=== PATIENT | female | born 1975 | race Caucasian/White ===

== ENCOUNTER 2017-08-17 16:30 | Outpatient (RCR) | payer MEDICAID, SELFPAY | END 2017-09-06 23:59 | LOC: NS 16:30 | PROVIDERS: Family Provider Preventive Medicine Occupational Medicine; PCP Preventive Medicine Occupational Medicine; Visit Provider Preventive Medicine Occupational Medicine | DX: E66.01 Morbid (severe) obesity due to excess calories (principal); Z68.45 Body mass index [BMI] 70 or greater, adult; Z71.3 Dietary counseling and surveillance | CPT/HCPCS: 97803 ==

== ENCOUNTER 2017-09-08 11:46 | Outpatient (RCR) | payer MEDICAID, SELFPAY ==
[2017-04-22 18:09] VITALS: BP 136/72; BMI 78.3
== END 2017-10-04 23:59 ==
LOC: NS 11:46
PROVIDERS: Family Provider Preventive Medicine Occupational Medicine; PCP Preventive Medicine Occupational Medicine; Visit Provider Preventive Medicine Occupational Medicine
DX: E66.01 Morbid (severe) obesity due to excess calories (principal); Z68.45 Body mass index [BMI] 70 or greater, adult; Z71.3 Dietary counseling and surveillance
CPT/HCPCS: 97803

== ENCOUNTER 2017-11-03 08:30 | Outpatient (RCR) | payer MEDICAID, SELFPAY | END 2017-11-03 08:31 | LOC: NS 08:30 | PROVIDERS: Family Provider Preventive Medicine Occupational Medicine; PCP Preventive Medicine Occupational Medicine; Visit Provider Preventive Medicine Occupational Medicine | DX: E66.01 Morbid (severe) obesity due to excess calories (principal); Z68.45 Body mass index [BMI] 70 or greater, adult; Z71.3 Dietary counseling and surveillance | CPT/HCPCS: 97803 ==

== ENCOUNTER 2018-07-16 15:51 | Outpatient (RCR) | payer MEDICAID, SELFPAY | END 2018-07-16 23:59 | disposition home or self-care (01) | LOC: NS 15:51 | PROVIDERS: Family Provider Preventive Medicine Occupational Medicine; PCP Preventive Medicine Occupational Medicine; Visit Provider Preventive Medicine Occupational Medicine | DX: E66.01 Morbid (severe) obesity due to excess calories (principal); Z68.45 Body mass index [BMI] 70 or greater, adult; Z71.3 Dietary counseling and surveillance | CPT/HCPCS: 97802 ==

== ENCOUNTER 2018-08-13 01:01 | Emergency (ER) | payer MEDICAID, SELFPAY ==
[2018-08-13 01:02] VITALS: BP 221/101; PULSE 111; RESP 26; TEMP 36.6; O2SAT 95; BMI 75.4
[2018-08-13 01:09] VITALS: BP 219/95; PULSE 108; RESP 20; O2SAT 98
[2018-08-13 01:42] VITALS: PULSE 101; RESP 22
[2018-08-13] MEDS: Ipratropium/Albuterol Sulfate 3 ML AMPUL.NEB INHALATION (01:42)
--- NOTE | 2018-08-13 02:00 | RAD_ITS ---
STUDY: X-RAY CHEST REASON FOR EXAM: Female, 43 years old. Cough and congestion for one week TECHNIQUE: Frontal and lateral views of the chest. COMPARISON: None. FINDINGS: Mild right basilar alveolar disease. There is no demonstrated pleural abnormality. Normal size heart. Normal mediastinum and gómez. Normal visualized pulmonary arteries. Normal visualized aortic arch and descending thoracic aorta. Normal visualized thoracic spine. Normal visualized ribs, clavicles, and shoulders. There is no demonstrated abnormality of the visualized soft tissue structures of the upper abdomen. RAD/Chest PA and Lateral IMPRESSION: Mild right basilar alveolar disease. Electronically Signed: Familia Claire MD at 2:51 EST Tel , Service support ,
--- NOTE | 2018-08-13 02:57 | ED.DCSUM_ITS ---
- ER Visit Summary Date of Service: 08/13/18 Chief Complaint: I woke up coughing History of Present Illness: The patient is a 43 F who presents with a cough. She complains of congestion rhinorrhea sore throat and productive cough for about 1 week. She woke up with a coughing fit tonight and was short of breath during the coughing fit but her shortness of breath has since improved and her cough is decreased. She does have a history of asthma. She states that she is having problems with her roommate so she has been staying with her and close room and her is a smoker so she has had increased secondhand smoke exposure which may be contributing. No fevers vomiting diarrhea. Physical Examination: Blood pressure 219/95 heart rate 108 respiratory rate 20 pulse ox 98% afebrile Moist mucous membranes No distress resting comfortably Heart regular rhythm tachycardia Lungs are clear without rales rhonchi wheezes Abdomen soft Alert Test Results: Two-view chest x-ray shows right basilar alveolar disease as read by radiology. Emergency Department Course and Treatment: Given alveolar disease in the right lower lung with productive cough I do believe this represents community-acquired pneumonia. Patient will be treated with azithromycin. She understands to return for new or worsening symptoms. She was discharged. In regards to her hypertension she notes that she has been out of her blood pressure medication for a week. She was advised to contact her primary care physician in regards to this. Treatment Plan: [] Disposition: Discharged Impression: Community acquired pneumonia This note was generated with backstitch dictation software. It may contain incorrect words, spelling, and punctuation that were not noted in review of the chart prior to signing ED Disposition - Plan for ED Patient: Chief Complaint: Cold Sx Referrals: Rian Blanco DO [Primary Care Provider] -
--- NOTE | 2018-08-13 02:57 | ED.DEP ---
ED Disposition - Plan for ED Patient: Chief Complaint: Cold Sx Instructions: ED Pneumonia Adult Prescriptions: Azithromycin [Zithromax Z-Alex] 250 mg PO UD #1 box Referrals: Rian Blanco DO [Primary Care Provider] -
[2018-08-13 03:05] VITALS: RESP 16; O2SAT 99
== END 2018-08-13 03:07 | disposition home or self-care (01) ==
LOC: ED 01:35
PROVIDERS: Emergency Provider Emergency Medicine; Family Provider Preventive Medicine Occupational Medicine; PCP Preventive Medicine Occupational Medicine
DX: J18.9 Pneumonia, unspecified organism (principal); E11.9 Type 2 diabetes mellitus without complications; I10 Essential (primary) hypertension; E28.2 Polycystic ovarian syndrome; J45.909 Unspecified asthma, uncomplicated; Z79.84 Long term (current) use of oral hypoglycemic drugs; Z79.899 Other long term (current) drug therapy; Z77.22 Contact with and (suspected) exposure to environmental tobacco smoke (acute) (chronic)
CPT/HCPCS: 71046; 94640; 99282

== ENCOUNTER 2019-02-26 14:00 | Outpatient (RCR) | payer MEDICAID, SELFPAY ==
--- NOTE | 2018-12-11 15:45 | HP.PTEVAL_ITS ---
Patient's Visit Information JUAN TAYLOR is a 43 year old F referred to Physical Therapy by Rian Blanco DO with a diagnosis of Bilateral Knee OA. Date of Evaluation: 12/11/18 Physical Therapist: Rylee Rutledge DPT - Visit Plan Frequency: 2x /Week Duration: 4 Weeks Plan: Aquatic Therapy for endurnace, strength and functional mobility - Subjective Findings: Patient reports that she has had bilateral knee pain for years- both are about the same. Worst: 7/10 Agg: standing on them, walking Best: 0/10 Eases: getting off of them. Has had x-rays awhile ago that showed arthritis. Pain is located on the anterior portion of the knee- no radiating pain. Describes pain as dull and achy- due to no cartilage. Sleep: not disturbed- back/side sleeper Left. Currently patient is walking as little as possible- likes to use a w/c, rollerator and cane. Prefers to use a rollerator to decrease the pressure- wants to sit on the seat and move around. Is able to get up/down 4 stairs as long as their is a rail. Pain comes if she is on her feet for more than 2 minutes- goes away immediatly when she sits down. Plans to do aquatics. PMHx: HTN, low thyroid, PCOS, asthma. Meds: Metformin, Dyflonec, vit D3, Vit B12, Metroprolol. - Objective Posture: FH,RS- patient is significantly obese and has a large pannus. Gait: ambulate 15 feet in clinic- turned turned out due to pannus with flat foot progression. HR/TR: able with UE A on the wall. SLS: unable to remove hands from wall but does perform a full weight shift. Palpation: right: not tender, Left: tender along anterior patella. ROM: WFL with soft tissue limitations. Strength: Ankle: 5/5, knee: 5/5, Hip: 4+/5 Core: poor. Endurance: poor- SOB with ambulation of 15 feet in clinic. Observation: peddled herself backwards with a w/c from waiting room to exam room- SOB after 100 feet. Flex: HS: moderate, Gastroc: moderate - Goals Goal 1:: Patient will be I with HEP and progression Goal Time Frame: 4-6 Weeks Goal 2:: Patient will ambulate >50 feet with no SOB and pain Goal Time Frame: 4-6 Weeks Goal 3:: Patient will demo 5/5 strength in hips Goal Time Frame: 4-6 Weeks Goal 4:: Patient will maintain proper posture t/o tx session to demo increased core s/s Goal Time Frame: 4-6 Weeks - Rehabilitation Potential Physical Therapy Diagnosis: Patient presents with hypomobility- she has decrease ROM, strength and muscular endurance leading to poor posture and increased pain with ADL's. Rehabilitation Potential: Fair - Anticipated Interventions Therapeutic Exercise to Include: Strength training, Endurance training, Balance training, Coordination, Agility training, Body mechanics, Postural training, Fle xibilty training, Gait and locomotor training, In an aquatic setting, Dynamic Lumbar Stabilization For the Purpose of:: To improve muscle performance and motor function Thank you for the opportunity to evaluate your patient. For Medicare and Medicare HMO plans, please review the plan of care and approve it. It will need to be FAXED BACK to us at [phone] for Medicare purposes. For Medicare only, by signing this I certify the plan of care. Please let me know if there are questions or concerns regarding this plan of care. Physician Signature: Date:
--- NOTE | 2019-01-21 16:58 | HP.PTREVAL ---
Rian Blanco, , It has been my pleasure to treat JUAN TAYLOR over the last 9 visits for Bilateral Knee OA. Please see the progress note below for an update on the physical therapy plan of care! Subjective: Patient feels that she is improving but she is still unable to do some things with her knees- she is unable to kneel on them and go up/down stairs. Objective/Function: Posture: FH,RS- patient is significantly obese and has a large pannus. Gait: ambulate 300 feet in clinic. HR/TR: able with UE A on the wall. SLS: unable to remove hands from wall but does perform a full weight shift. Palpation: right: not tender, Left: tender along anterior patella. ROM: WFL with soft tissue limitations. Strength: Ankle: 5/5, knee: 5/5, Hip: 4+/5 Core: fair. Endurance: fauir- SOB with ambulation of 300 feet in clinic. Flex: HS: moderate, Gastroc: moderate Plan Plan: Continue with aquatic PT to progress towards goals Goals Goal 1:: Patient will be I with HEP and progression Goal Time Frame: 4-6 Weeks Goal Progress: Progressing Goal 2:: Patient will ambulate >50 feet with no SOB and pain Goal Time Frame: 4-6 Weeks Goal Progress: Progressing Goal 3:: Patient will demo 5/5 strength in hips Goal Time Frame: 4-6 Weeks Goal Progress: Progressing Goal 4:: Patient will maintain proper posture t/o tx session to demo increased core s/s Goal Time Frame: 4-6 Weeks Goal Progress: Progressing Anticipated Interventions Therapeutic Exercise to Include: Strength training, Endurance training, Balance training, Coordination, Agility training, Body mechanics, Postural training, Flexibilty training, Gait and locomotor training, In an aquatic setting, Dynamic Lumbar Stabilization For the Purpose of:: To improve muscle performance and motor function Please do not hesitate to contact me at [phone] by phone or if you have questions or concerns regarding this new plan of care! Sincerely, Rylee Rutledge DPT
--- NOTE | 2019-03-22 09:59 | HP.PT.NRP ---
HP - Discharge Summary (1) - Patient Information JUAN TAYLOR was seen in my office for initial evaluation on 12/11/18. The following Plan of Care was established for this patient: Initial Frequency: 2x /Week Initial Duration: 4 Weeks - Anticipated Interventions Therapeutic Exercise to Include: Strength training, Endurance training, Balance training, Coordination, Agility training, Body mechanics, Postural training, Flexibilty training, Gait and locomotor training, In an aquatic setting, Dynamic Lumbar Stabilization For the Purpose of:: To improve muscle performance and motor function This patient was last seen in our office . Pertinent comments regarding their Physical therapy will appear below: At this point I will be discontinuing this patient from physical therapy. I would be happy to see this patient again in the future if found appropriate by the physician. Thank you! ELMO GrimaldoT
== END 2019-02-26 19:00 | disposition home or self-care (01) ==
LOC: PT 14:00
PROVIDERS: Family Provider Preventive Medicine Occupational Medicine; PCP Preventive Medicine Occupational Medicine; Referring Provider Preventive Medicine Occupational Medicine; Visit Provider Preventive Medicine Occupational Medicine
DX: M17.0 Bilateral primary osteoarthritis of knee (principal)
CPT/HCPCS: 97113; 97161; 97164

== ENCOUNTER 2019-12-14 00:48 | Emergency (ER) | payer MEDICAID, SELFPAY ==
[2019-12-14 00:49] VITALS: BP 220/95; PULSE 97; RESP 20; TEMP 36.4; O2SAT 98; BMI 83.6
--- NOTE | 2019-12-14 01:20 | ED.VIS.BACK ---
History of Present Illness Chief Complaint: Back Informant: Patient Onset: Days - 17 Context: Sudden Onset Timing: Continuous, Waxes and wanes Quality: Aching, Burning Location: Lumbar - mid to left, Buttock - left Current Severity: Moderate Maximum Severity: Severe Worsened by: improves with: Movement - certain ones, such as trying to stand from seated position Relieved by: Remaining Still Associated Symptoms: - - No numbness or tingling. No radiation to either lower extremity. No bowel or bladder dysfunction. No abdominal pain or dysuria. Narrative: Patient states she rolled over and had a pop in her back 17 days ago. She has been dealing with pain, called her doctor and was prescribed a prednisone taper and tramadol, pain never went away, but seemed to get worse yesterday when she felt a pop in her back in the middle of the night. Not sure if she did something to provoke that. Denies any neurologic symptoms but the pain radiates over to the left hip. Denies any falls or obvious major injuries. - Past Medical History (1) Asthma Status: Chronic (2) KATEY (obstructive sleep apnea) Status: Chronic (3) Obesity Status: Chronic Past Medical History - Allergies and Home Meds Allergies/Adverse Reactions: Allergies No Known Allergies Allergy (Verified 12/14/19 00:48) Primary Care Physician: Rian Blanco DO [Primary Care Provider] - 3-5 Days Surgical History: - - No history of back surgery Lives: Spouse/ Significant Other - Female Smoking Status: Former smoker Review of Systems General: Denies: Chills, Fever, Sweats Eyes: Denies: Visual changes - bilaterally, Diplopia ENT: Denies: Rhinorrhea, Sore throat Cardiovascular: Denies: Chest pain, Palpitations Respiratory: Denies: Dyspnea, Cough, Dyspnea on exertion Gastrointestinal: Denies: Abdominal pain, Nausea, Vomiting, Diarrhea, Melena, Hematochezia Genitourinary: Denies: Dysuria, Hematuria, Frequency Musculoskeletal: Reports: Back pain. Denies: Extremity Pain Skin: Denies: Rash, Wounds Neurological: Denies: Headache, Weakness, Numbness Physical Exam Vital Signs/Narrative: Vital Signs Temp Pulse Resp BP Pulse Ox 12/14/19 00:49 97.6 F L 97 20 H 220/95 H 98 Inital Vital Signs reviewed: Yes General: Well nourished, Well developed, Obese - Morbidly, - - Well-appearing in no distress, conversive in full sentences Head: Normocephalic, Atraumatic Abdomen: Soft, Nontender, Nondistended. Negative for: Pulsatile mass Back: Normal Inspection, Spinal tenderness - Mild, lumbosacral region near tailbone, Negative SLR - Right, Negative SLR - Left, - - Able to sit up on her own from a reclined position in bed without pain. Patient describes pain in the left sciatic notch region, nontender at this time.. Negative for: Paraspinal Tenderness - Obesity limits the exam significantly, CVA tenderness Extremeties: Nontender, No edema, - - No tenderness at the greater tuberosity of the hip bilaterally or the ASIS of the pelvis. Skin: Normal color, No rash Neuro: Alert, Oriented, Normal Strength, Normal Sensation, Normal DTR, Normal Gait, Normal Reflexes Psychological: Normal affect, Normal Mood Diagnostic/Tx/Re-eval STUDY: X-RAY - LUMBAR SPINE REASON FOR EXAM: Female, 44 years old. LOWER BACK PAIN X 17 DAYS, NO RADIATION DOWN LEGS TECHNIQUE: 3 view(s) of the lumbar spine were obtained. COMPARISON: None FINDINGS: Normal lumbar lordosis. There is no substantial scoliosis. There is a normal alignment of the vertebrae. There is multilevel endplate spondylosis of the lumbar vertebrae. There is multi-level degenerative disc disease with multi-level disc space narrowing. There is no demonstrated fracture. There is minimal anterolisthesis of L4 on L5 (3.3 mm). The soft tissue structures are unremarkable. RAD/Lumbar Spine 2 or 3 Views IMPRESSION: Multilevel spondylosis/degenerative disease. Minimal atelectasis of L4 on L5 otherwise no acute fracture. Electronically Signed: Ashley Montaño MD at 2:21 EDT - Medical Decision Making X-rays show nothing acute. Degenerative changes are noted. She was given a dose of morphine which helped for pain. At this time I do not see any reason to get further emergent studies. She should follow-up with her doctor. She is testing negative for radicular symptoms at this time, nor did she present with acute radicular symptoms. I do not think continuing more steroids is needed. No symptoms of cauda equina syndrome. We discussed reasons to return. I do not think she needs new prescriptions, but at discharge the patient states that she is out of the tramadol her PCP prescribed her, so I will give her a short refill of that. I advised her to continue the meloxicam that she also has at home. Initially her blood pressure was 220 systolic. On reevaluation prior to discharge her blood pressure is 165/81. I suspect it was elevated due to pain. ED Disposition - Plan for ED Patient: Disposition: Home or Assisted Living Diagnosis: Musculoskeletal back pain Instructions: ED Back Pain Acute or Chronic Prescriptions: traMADol [Ultram] 50 mg PO Q4H PRN PRN #15 tab PRN Reason: Pain Prescription Printed Referrals: Rian Blanco DO [Primary Care Provider] - 3-5 Days
[2019-12-14] MEDS: Morphine 4 MG/ML Syringe IM (02:01)
[2019-12-14 02:49] VITALS: BP 165/81; PULSE 90; RESP 16; O2SAT 95
[2019-12-14 02:53] VITALS: RESP 20
== END 2019-12-14 04:10 | disposition home or self-care (01) ==
PROVIDERS: Emergency Provider Emergency Medicine; PCP Preventive Medicine Occupational Medicine
DX: M54.9 Dorsalgia, unspecified (principal); J45.909 Unspecified asthma, uncomplicated; G47.33 Obstructive sleep apnea (adult) (pediatric); E66.01 Morbid (severe) obesity due to excess calories; Z79.899 Other long term (current) drug therapy; Z87.891 Personal history of nicotine dependence
CPT/HCPCS: 72100; 96372; 99284

== ENCOUNTER → 2020-01-08 | Outpatient (CLI) | payer MEDICAID, SELFPAY ==
[2019-12-14 00:49] VITALS: BMI 83.6
== END | disposition home or self-care (01) ==
LOC: LABSPEC 15:32
PROVIDERS: PCP Preventive Medicine Occupational Medicine; Visit Provider Dermatology
DX: L08.9 Local infection of the skin and subcutaneous tissue, unspecified (principal); D48.5 Neoplasm of uncertain behavior of skin
CPT/HCPCS: 87070; 87075; 87077; 87186; 87205

== ENCOUNTER 2020-01-19 15:23 | Emergency (ER) | payer MEDICAID, SELFPAY ==
[2020-01-19 15:24] VITALS: BP 176/83; PULSE 81; RESP 20; TEMP 36.8; BMI 83.7
[2020-01-19] MEDS: Doxycycline 100 MG CAPSULE PO (16:02)
[2020-01-19 16:19] LABS: Absolute Neutrophil Count 7.9 X10^3/uL (2.0-7.7); Basophil# 0.06 X10^3/uL; Basophil% 0.5 % (0-1); Eosinophil# 0.29 X10^3/uL; Eosinophils% 2.6 % (0-5); Hematocrit 42.1 % (37-47); Hemoglobin 12.5 g/dL (12.0-15.0); Lymphocyte % 19.1 % (19-41); Mean Corp Hgb Conc 29.7 g/dL (32-36); Mean Corpuscular Hgb 23.5 pg (27.0-32.0); Mean Platelet Vol. 9.9 fl (6.2-12.0); Monocyte# 0.61 X10^3/uL; Monocyte% 5.6 % (0-10); NRBC Flagged by Analyzer 0 % (0-5); Neutrophil # 7.87 X10^3/uL (2.7-7.7); Neutrophil % 71.8 % (47-70); Platelet Count 346 K/mm3 (150-450); RBC Distribution Width CV 17.5 % (11.6-14.6); RBC Distribution Width SD 49.3 fl (35.1-43.9); Red Blood Count 5.33 M/mm3 (4.2-5.4)
--- NOTE | 2020-01-19 16:25 | ED.DCSUM_ITS ---
- ER Visit Summary Date of Service: 01/19/20 Chief Complaint: Bilateral leg swelling History of Present Illness: The patient is a [address] Sweeney. She reports that she has swelling in both of her legs that began 40 days ago. States that she has had low back pain for the past 50 days that comes on when she is trying to get out of bed. Because of this she has been sleeping in a wheelchair for the past 40 days. States that she has had 5 days of Lasix without resolution. She has had blood work and ultrasound 2 weeks ago that showed no DVT or CHF. Patient reports that her back pain is a stabbing pain that is 0 out of 10 currently and 10 out of 10 at worst. States that it really only comes on when she is trying to get out of bed. She denies any trauma. No fall, MVA, or change in activity. She has had x-rays for this. She denies any radiation. She denies any numbness, tingling, or weakness. States that she replaced her bed without relief. She is in the process of getting a hospital bed. She is scheduled to begin physical therapy tomorrow. Patient denies any chest pain or shortness of breath. She denies any fever or chills. She is concerned because she has weeping from her left leg that began 2 days ago. Physical Examination: Vitals: Stable. Afebrile. General: Well-nourished and well-developed. Head: Normocephalic atraumatic. Neck: Supple, no lymphadenopathy. No JVD. Nontender. Cardiovascular: Regular rate and rhythm. No murmurs. Respiratory: No respiratory distress. Clear to auscultation bilaterally. Abdominal: Soft, nontender, nondistended, normal bowel sounds. No guarding, rebound, or peritoneal signs. Back: Moderate tenderness palpation to the lumbar spine paraspinous muscular and lumbar region bilaterally. Negative straight leg raise bilaterally. Extremities: 3+ pitting edema of her lower extremities bilaterally. There is a 2 cm scab to the anterior left leg with slight surrounding erythema and there is serosanguineous weeping from this. There is no induration or fluctuance. No evidence of abscess. Skin: Normal color, no rash. Neurologic: Alert and oriented ?3. Cranial nerves II through XII are intact. Normal strength and sensation. Psych: Normal affect. Test Results: CBC shows segmented neutrophils of 72. Chem-7 shows a BUN of 21. LFTs show an AST of 11. BNP is 9.2. Emergency Department Course and Treatment: I had a prolonged discussion with the patient that I suspect that this swelling is from her sitting in a wheelchair. We talked about elevating her legs and using compression stockings. Treatment Plan: Patient will be discharged with doxycycline to prevent infection from the scabbed area. She also be placed on Bactroban ointment. She be given a prescription for 5 days of Lasix. She is also instructed to follow-up with the wound clinic as I suspect that she has some component of lymphedema and would benefit from teaching and compression dressing. Follow-up with her primary care physician in 1 week for another exam. Return to the emergency department for any worsening symptoms. Disposition: To home in improved and stable condition. Impression: 1. Bilateral lower extremity edema. This note was generated with [employer] dictation software. It may contain incorrect words, spelling, and punctuation that were not noted in review of the chart prior to signing ED Disposition - Plan for ED Patient: Instructions: ED Peripheral Edema, Bilateral Prescriptions: Mupirocin [Bactroban] 1 applic TOPICAL TID #1 tube Doxycycline 100 mg PO BID #14 capsule Furosemide [Lasix] 20 mg PO DAILY #5 tablet Referrals: Rian Blanco DO [Primary Care Provider] - 1 Week Clinic,Wound [None] - 2 Days for wound check
[2020-01-19 16:43] LABS: AST(SGOT) 11 U/L (15-37); Alanine Aminotransfer ALT/SGPT 19 U/L (13-56); Albumin, Serum 3.4 g/dL (3.2-5.0); Alkaline Phosphatase 98 U/L (45-117); Anion Gap 7 (5-15); BUN 21 mg/dL (7-18); BUN/Creat Ratio 24.9 RATIO (10-20); Bilirubin, Direct 0.11 mg/dL (0.00-0.30); Calcium,Total 9.3 mg/dL (8.5-10.1); Chloride 107 mmol/L (98-107); Creatinine, Serum 0.84 mg/dL (0.55-1.02); EST Glomerular Filtration Rate 78 mL/min (>60); Est Glom Filt Rate - Afr Amer 94 mL/min (>60); Globulin 3.9 g/dL (2.2-4.2); Glucose 86 mg/dL (74-106); Potassium 4.8 mmol/L (3.5-5.1); Protein, Total 7.3 g/dL (6.4-8.2); Sodium Level 140 mmol/L (136-145)
[2020-01-19 16:44] LABS: BNP,B-Type NATRIURETIC PEPTIDE 9.2 pg/mL (0-100)
== END 2020-01-19 17:50 | disposition home or self-care (01) ==
LOC: ED 15:59
PROVIDERS: Emergency Provider Emergency Medicine; PCP Preventive Medicine Occupational Medicine
DX: R60.0 Localized edema (principal); M54.5 Low back pain; I10 Essential (primary) hypertension; E03.9 Hypothyroidism, unspecified; J45.909 Unspecified asthma, uncomplicated; Z79.84 Long term (current) use of oral hypoglycemic drugs; Z79.899 Other long term (current) drug therapy
CPT/HCPCS: 80048; 80076; 83880; 85025; 99284

== ENCOUNTER 2020-01-29 07:50 | Outpatient (RCR) | payer MEDICAID, SELFPAY ==
[2020-01-29 08:05] VITALS: BP 187/98; PULSE 78; RESP 16; TEMP 36.6; BMI 80.5
--- NOTE | 2020-01-29 08:37 | HP.PCM_ITS ---
(1) Lower limb ulcer, calf Status: Acute Current Visit: Yes Qualifiers: Laterality: left Code(s): L97.209 - Non-pressure chronic ulcer of unspecified calf with unspecified severity (2) Obesity Status: Chronic Current Visit: No Qualifiers: Code(s): E66.9 - Obesity, unspecified (3) Nonhealing skin ulcer Status: Acute Current Visit: Yes Code(s): L98.499 - Non-pressure chronic ulcer of skin of other sites with unspecified severity History of Present Illness Date of Service: 01/29/20 Chief Complaint: Follow-up left lower leg ulcer History of Wound: D4-year[age] white female that is extremely obese has a hard time getting around because she has poor cartilage in the right knee and feels unsteady has been sleeping in her wheelchair has developed edema in the lower extremities and open sores. Denies to any trauma. Now starting to heal patient has finished her doxycycline that was after being seen in the emergency room has been using [id number] and bacitracin ointment. New skin is developing in base of wound base is very clean no cultures obtained. We will follow-up in 1 week Past Medical History Past Medical History: Chronic Problems (Last Reviewed 05/10/18 @ 11:13 by LEONIDES Alvarez) Asthma (Chronic) Obesity (Chronic) KATEY (obstructive sleep apnea) (Chronic) Past Medical History: Lower extremity ulcers. Edema lower legs Surgical History: - - No history of back surgery Allergies/Adverse Reactions: Allergies No Known Allergies Allergy (Verified 01/29/20 08:19) Home Medications: Ambulatory Orders Medication Instructions Recorded Metoprolol Tartrate [Lopressor 100 mg PO BID 09/23/14 (Beta Deyanira)] Cholecalciferol (VIT D3) [Vitamin 10,000 unit PO DAILY 07/08/16 D] Norethindrone [Aygestin] 5 mg PO DAILY 07/08/16 metformin 500 mg tablet 1,000 mg PO BID tab 11/02/17 albuterol sulfate 90 mcg/actuation 2 puff INHALATION Q6H PRN #1 device 11/07/17 aerosol inhaler diclofenac potassium 25 mg capsule 50 mg PO BID cap 11/07/17 montelukast 10 mg tablet 10 mg PO DAILY #30 tab 11/07/17 Cyanocobalamin (Vitamin B-12) 1,000 mcg PO DAILY 05/09/20 [Vitamin B-12] Cyclobenzaprine HCl 10 mg PO TID PRN 12/14/19 Levothyroxine [Synthroid] 50 mcg PO DAILY 12/14/19 Oxybutynin Chloride [Oxybutynin 10 mg PO DAILY 12/14/19 Chloride ER] Pravastatin Sodium 40 mg PO DAILY 12/14/19 Mupirocin [Bactroban] 1 applic TOPICAL TID #1 tube 01/19/20 Smoking Status: Never smoker Review of Systems Constitutional: Denies: Chills, Fever Eyes: Denies: Blurred vision, Drainage, Pain HEENT: Denies: Difficulty Hearing, Difficulty Swallowing, Sore Throat, Visual Changes Cardiovascular: Denies: Chest Pain, Palpitations, Syncope Respiratory: Denies: Cough, Shortness of Breath Gastrointestinal: Denies: Abdominal Pain, Nausea, Vomiting Genitourinary: Denies: Dysuria, Frequency Musculoskeletal: Denies: Joint Pain, Muscle pain Skin: Denies: Jaundice, Rash Neurological: Denies: Balance problems, Change in Speech, Difficulty swallowing, Focal weakness Psychiatric: Denies: Anxiety, Depression Endocrine: Denies: Change in Body Habitus Hematologic/ Lymphatic: Denies: Adenopathy - Physical Exam Vital Signs Temp Pulse Resp BP 97.9 F 78 16 187/98 H 01/29/20 08:05 01/29/20 08:05 01/29/20 08:05 01/29/20 08:05 General: Oriented x3, Cooperative, Well developed HEENT: Atraumatic, PERRLA Oral: Moist Mucosa Neck: Supple, No JVD Lungs: Clear to auscultation, Normal air movement Cardiovascular: Regular rate, Regular Rhythm Abdomen: Bowel Sounds Present, Soft, Non Tender, No Hepato-splenomegaly Extremities: No clubbing, No edema Skin: Ulcer/ Wound - Left lower leg ulcer Wound Measurements and Assessment WC - Nurse 1 - General Ulcer Measurement Start: 01/29/20 08:05 Freq: Status: Active Protocol: Activity Type Activity Date Activity User E-Sign Co-Sign Detail Recorded Client Recorded Date Recorded By Document 01/29/20 08:05 [facility] [id number] 01/29/20 08:17 [facility] 01/29/20 08:05 Wound Center Nurse 1 [Ulcer Assessment] #1- LEFT AVILEZ -Combined with other wound No -Current Size (cm) - Length 2.9 -Current Size (cm) - Width 2.2 -Current Size (cm) - Depth 0.1 -Total Square Cm 6.38 -Date of Last Picture (Recall this 01/29/20 field) -Photo Taken Yes -Epithelialization None Present -Tunneling No -Undermining/Tunneling No -Circular Undermining No -Exudate Amt Small -Exudate Type Serous -Wound Margin Distinct, Outline Attached -Granulation Amt Large (67-100%) -Granulation Quality Red -Slough/Fibrin Yes -Necrosis Amt Small (1-33%) -Necrotic Tissue Type Adherent Slough -Texture (Sera-wound Skin Appearance) Assessed -Moisture (Sera-wound Skin Appearance Assessed ) -Color (Sera-wound Skin Appearance) Assessed -Temperature (Sera-wound Skin No Abnormality Appearance) (Pt Warm) -Tenderness on Palpation (Sera-wound Yes Skin Appearance) -Ulcer Cleansing SOAPY WATER -Foul Odor after Cleansing No -Anesthetic Used 5% Lidocaine Gel [Edema Assessment] -Lower Limb Edema Present Yes -Right Calf (cm) 54 -Right Ankle (cm) 30 -Left Calf (cm) 56 -Left Ankle (cm) 29.8 WC - Nurse 2 - General Ulcer CM Notes Start: 01/29/20 08:05 Freq: Status: Active Protocol: Activity Type Activity Date Activity User E-Sign Co-Sign Detail Recorded Client Recorded Date Recorded By Document 01/29/20 08:28 [facility] [id number] 01/29/20 08:34 PL 01/29/20 08:28 Wound Center Nurse 2 [Procedure/Treatment] #1- LEFT AVILEZ -Time 08:30 -Correct Patient Yes -Correct Side, Site, Position Yes -Correct Procedure Yes -Procedure Performed Yes -Type of Procedure Debridement -Clinical Debridement Subcutaneous -Post Debridement Size (cm) - Length 3 -Post Debridement Size (cm) - Width 2 -Post Debridement Size (cm) - Depth 0.1 -Total Square Cm 6 -Wound/Ulcer Outcome Not Healed -Ulcer Cleansing Rinsed/ Irrigated with Saline -Foul Odor after Cleansing No -Treatment Response Procedure Tolerated Well [See Physician Procedure note for Specifics] Pain Scale: 0-10 Numeric [Pain] -Is Patient Pain Free? Yes Musculoskeletal: No Tenderness to Palpation of Joints or Extremities Lymphatic: No Cervical, Supraclavicular, or Inguinal Adenopathy Neurological: Cranial nerves II-XII grossly intact, Neuro grossly intact Psych/Mental Status: Normal Affect, Appropriate Debridement Note Post-Debridement Measurements/Treatment WC - Nurse 2 - General Ulcer CM Notes Start: 01/29/20 08:05 Freq: Status: Active Protocol: Activity Type Activity Date Activity User E-Sign Co-Sign Detail Recorded Client Recorded Date Recorded By Document 01/29/20 08:28 PL [id number] 01/29/20 08:34 PL 01/29/20 08:28 Wound Center Nurse 2 #1- LEFT AVILEZ -Time 08:30 -Correct Patient Yes -Correct Side, Site, Position Yes -Correct Procedure Yes -Procedure Performed Yes -Type of Procedure Debridement -Clinical Debridement Subcutaneous -Post Debridement Size (cm) - Length 3 -Post Debridement Size (cm) - Width 2 -Post Debridement Size (cm) - Depth 0.1 -Total Square Cm 6 -Wound/Ulcer Outcome Not Healed -Ulcer Cleansing Rinsed/ Irrigated with Saline -Foul Odor after Cleansing No -Treatment Response Procedure Tolerated Well Pain Scale: 0-10 Numeric Is Patient Pain Free? Yes Wound debrided: Left lower leg ulcer Type of Debridement: Excisional debridement Anesthesia Used: 5% Lidocaine Gel Depth: Down to and including healthy tissue Percentage of wound debrided: 100 Instrument Used: 5mm curette Tissue Removed: Fibrin Severity: Limited To Skin Breakdown Amount of bleeding with debridement: Mild Bleeding Controlled with: Compression and gauze Patient tolerated procedure well Assessment/Plan Active Problems (Last Reviewed 05/10/18 @ 11:13 by Evi Richard NP-C) Lower limb ulcer, calf (Acute) Nonhealing skin ulcer (Acute) Assessment: Lower leg ulcer. Nonhealing leg ulcer Plan: Leg with antibacterial soap. Apply Aquacel extra to wound base cover with Adaptic gauze and tape. Double layer Tubigrip to left leg. Follow-up in 1 week
== END 2020-02-04 23:59 ==
LOC: WC 07:50
PROVIDERS: PCP Preventive Medicine Occupational Medicine; Visit Provider Nurse Practitioner
DX: L97.221 Non-pressure chronic ulcer of left calf limited to breakdown of skin (principal); G47.33 Obstructive sleep apnea (adult) (pediatric); J45.909 Unspecified asthma, uncomplicated; E66.9 Obesity, unspecified; Z79.899 Other long term (current) drug therapy
CPT/HCPCS: 11042; 99212; G0463

== ENCOUNTER 2020-02-05 07:49 | Outpatient (RCR) | payer MEDICAID, SELFPAY ==
[2020-02-05 00:39] VITALS: BP 187/98; PULSE 78; RESP 16; TEMP 36.6
[2020-02-05 08:03] VITALS: BP 181/91; PULSE 70; RESP 18; TEMP 36.2; BMI 80.5
--- NOTE | 2020-02-05 08:30 | PN.PCM_ITS ---
(1) Lower limb ulcer, calf Status: Acute Current Visit: Yes Code(s): L97.209 - Non-pressure chronic ulcer of unspecified calf with unspecified severity (2) Nonhealing skin ulcer Status: Acute Current Visit: Yes Code(s): L98.499 - Non-pressure chronic ulcer of skin of other sites with unspecified severity (3) KATEY (obstructive sleep apnea) Status: Chronic Current Visit: Yes Code(s): G47.33 - Obstructive sleep apnea (adult) (pediatric) (4) Obesity Status: Chronic Current Visit: Yes Qualifiers: Code(s): E66.9 - Obesity, unspecified Type of Wound Date of Service: 02/05/20 Chief Complaint: Follow-up left lower leg ulcer History of Wound: 44-year-old white female that is extremely obese has a hard time getting around because she has poor cartilage in the right knee and feels unsteady has been sleeping in her wheelchair has developed edema in the lower extremities and open sores. Denies to any trauma. Now starting to heal patient has finished her doxycycline that was after being seen in the emergency room has been using [id number] and bacitracin ointment. New skin is developing in base of wound base is very clean no cultures obtained. We will follow-up in 1 week Progress of Wound: Today the wound is healed patient will be discharged from the wound center - Physical Exam Vital Signs Temp Pulse Resp BP 97.1 F L 70 18 181/91 H 02/05/20 08:03 02/05/20 08:03 02/05/20 08:03 02/05/20 08:03 General: Oriented x3, Cooperative, Well developed HEENT: Atraumatic, PERRLA Oral: Moist Mucosa Neck: Supple, No JVD Lungs: Clear to auscultation, Normal air movement Cardiovascular: Regular rate, Regular Rhythm Abdomen: Bowel Sounds Present, Soft, Non Tender, No Hepato-splenomegaly Extremities: No clubbing, No edema Skin: Ulcer/ Wound - Left gonzalez ulcer from edema Wound Measurements and Assessment WC - Nurse 1 - General Ulcer Measurement Start: 02/05/20 08:03 Freq: Status: Active Protocol: Activity Type Activity Date Activity User E-Sign Co-Sign Detail Recorded Client Recorded Date Recorded By Document 02/05/20 08:03 PL [id number] 02/05/20 08:10 PL 02/05/20 08:03 Wound Center Nurse 1 [Ulcer Assessment] #1- LEFT GONZALEZ -Combined with other wound No -Current Size (cm) - Length 0 -Current Size (cm) - Width 0 -Current Size (cm) - Depth 0 -Total Square Cm 0 -Epithelialization Large 67-100% -Tunneling No -Undermining/Tunneling No -Exudate Amt None Present -Granulation Amt Large (67-100%) -Texture (Sera-wound Skin Appearance) No Abnormality -Moisture (Sera-wound Skin Appearance No Abnormality ) -Color (Sera-wound Skin Appearance) No Abnormality -Temperature (Sera-wound Skin No Abnormality Appearance) (Pt Warm) -Ulcer Cleansing Rinsed/ Irrigated with Saline -Foul Odor after Cleansing No Musculoskeletal: No Tenderness to Palpation of Joints or Extremities Lymphatic: No Cervical, Supraclavicular, or Inguinal Adenopathy Neurological: Cranial nerves II-XII grossly intact, Neuro grossly intact Psych/Mental Status: Normal Affect, Appropriate Debridement Note No debridement was completed today Assessment/Plan Active Problems (Last Reviewed 05/10/18 @ 11:13 by Evi Richard, [facility]) Lower limb ulcer, calf (Acute) Nonhealing skin ulcer (Acute) Obesity (Chronic) KATEY (obstructive sleep apnea) (Chronic) Assessment: Lower leg ulcer resolved. Nonhealing leg ulcer resolved Plan: Discharge from the wound center and follow-up as needed
== END 2020-03-06 23:59 ==
LOC: WC 07:49
PROVIDERS: PCP Preventive Medicine Occupational Medicine; Visit Provider Nurse Practitioner
DX: Z09 Encounter for follow-up examination after completed treatment for conditions other than malignant neoplasm (principal); G47.33 Obstructive sleep apnea (adult) (pediatric); R60.0 Localized edema; E66.9 Obesity, unspecified
CPT/HCPCS: 99212; G0463

== ENCOUNTER → 2020-02-13 14:11 | Outpatient (CLI) | payer MEDICAID, SELFPAY ==
[2020-02-05 08:03] VITALS: BMI 80.5
--- NOTE | 2020-02-13 14:13 | US_ITS ---
STUDY: SUPERFICIAL ULTRASOUND - RIGHT LOWER QUADRANT REASON FOR EXAM: Female, 44 years old. SOFT TISSUE MASS RLQ 5''5'''' 485 # TECHNIQUE: A superficial ultrasound was performed with real-time and static fong-scale imaging. COMPARISON: None. FINDINGS: Dedicated images of the right lower quadrant demonstrate no discrete solid or cystic masses. There is subcutaneous edema. US/Ext Non Vasc Limited/Soft Tiss IMPRESSION: Subcutaneous edema. No discrete mass identified. Electronically Signed: Lyndsay Andrews MD at 15:04 EDT Tel , Service support ,
== END ==
PROVIDERS: PCP Preventive Medicine Occupational Medicine; Referring Provider Preventive Medicine Occupational Medicine; Visit Provider Preventive Medicine Occupational Medicine
DX: R22.2 Localized swelling, mass and lump, trunk (principal)
CPT/HCPCS: 76882

== ENCOUNTER 2020-04-03 10:00 | Outpatient (RCR) | payer MEDICAID, SELFPAY ==
--- NOTE | 2020-01-20 17:17 | HP.PTEVAL_ITS ---
Patient's Visit Information JUAN TAYLOR is a 44 year old F referred to Physical Therapy by Dr. Rian Blanco DO with a diagnosis of SACROCOCCYGEAL DISORDER,LOW BACK PAIN. Date of Evaluation: 01/20/20 Physical Therapist: Raymon Goff, PT, Cert MDT, OCS - Visit Plan Frequency: 2x /Week Duration: 4 Weeks Plan: PT INTERVENTIONS GRADED DLS,POSTURAL EX'S ,LE STRENGTHENING MODALTIES NEEDED - Subjective This 44 y/o female presents to physical therapy with lumboscaral pain. Patient developed inscidous onset of lumbar pain -L-S region. Patient symptoms increased when getting out of bed ,thus sleeps in w/c. Patient symptoms affected severe been in ER had x-rays DDD anteolithesis. Also, been in ER due to open wound in bilateral with drainage,so unable to do water ex's . Patient also has referral to wound center. Did morphine and telyonal. Tramadol didnt help. Location L- [place] . Decrribed as ache and sharp pain. Alos has isoloated left knee pain severe OA. Agraveting walk,stand,unable to lay supine to get OOB,bending,lifting. Alleviating not in bed ,resting in recliner. Patient uses recliner . Patient could benifit from hospital bed which DR ordered already. Could benifit lift chair recliner due to patient sleeps in w/c. Bowel/bladder -. Coughing/sneezing-. Patient pain affects ADL'S ability to walk,standing . Patient condition affets QOL. 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 VOCATION: disability - Pain Bilateral Back Pain Intensity (Out of 10): 10 Pain Intensity Range: 10 Comment: OOB - Objective POSTURE: mild foward posture. GAIT: antalgic short disatnces with cane. PALPTION: tender L-S. MMT: quads/hams 4-/5,hip flexion 3-/5,ankle 4/5 ,GTE 4/5. LUMBAR ROM: flexion mod loss ,extension mod loss,side glides mod. FLEXABILTY: hams min/mod tight - Special Tests L/S Slump test left side: Negative L/S Slump test right side: Negative L/S Left Straight Leg Raise: Negative L/S Right Straight Leg Raise: Negative - Goals Goal 1:: Independant with HEP Goal Time Frame: 4-6 Weeks Goal 2:: Patient improve ability to ambulate further distance with cane and less pain. Goal Time Frame: 4-6 Weeks Goal 3:: Patient decrease L-S pain by 40 % or > with functional activities Goal Time Frame: 4-6 Weeks Goal 4:: Patient improve lumbar ROM for function of recovery. Goal Time Frame: 4-6 Weeks Goal 5:: Patient improve back owestry score by 5 points or > to improve QOL. Goal Time Frame: 4-6 Weeks - Rehabilitation Potential Physical Therapy Diagnosis: This patient has multiple comorbities along with LBP with pain unable to get OOB ,affects ability to walk stand and distances causes deficits with ADL'S and stays in w/c most of the day as well sleeps in wc/ at home. Rehabilitation Potential: Good - Anticipated Interventions Patient/Client Instruction: Educate patient on: Condition, Plan of Care For the Purpose of:: To decrease pain, To increase ROM, To improve muscle performance and motor function, To improve ability to perform ADL's, To increase tolerance to activity/condition/position, To improve ability of physical actions for home/community/work/leisure, To increase flexibility/ROM, To improve safety with gait, To reduce risk of recurrence, To improve health and function, To impr ove ability to perform tasks related to life management Therapeutic Exercise to Include: Strength training, Body mechanics, Postural training, Flexibilty training, Dynamic Lumbar Stabilization For the Purpose of:: To decrease pain, To increase ROM, To improve muscle performance and motor function, To improve ability to perform ADL's, To increase tolerance to activity/condition/position, To improve ability of physical actions for home/community/work/leisure, To improve health of tissue, To decrease soft tissue restriction, To improve health and function, To improve ability to perform tasks related to life management TENS: Yes IF ES: Yes Cryotherapy (ice pack, ice massage): Yes Thermo therapy (hot pack): Yes Ultrasound (thermal/non thermal): Yes For the Purpose of:: To decrease pain, To decrease swelling/inflammation, To improve nutrient delivery to tissue, To increase oxygenation perfusion, To improve health of tissue, To decrease soft tissue restriction Thank you for the opportunity to evaluate your patient. For Medicare and Medicare HMO plans, please review the plan of care and approve it. It will need to be FAXED BACK to us at [phone] for Medicare purposes. For Medicare only, by signing this I certify the plan of care. Please let me know if there are questions or concerns regarding this plan of care. Physician Signature: Date:
--- NOTE | 2020-07-03 12:19 | HP.PT.NRP ---
JUAN TAYLOR was seen in my office for initial evaluation on 01/20/20. The following Plan of Care was established for this patient: Initial Frequency: 2x /Week Initial Duration: 4 Weeks Patient/Client Instruction: Educate patient on: Condition, Plan of Care For the Purpose of:: To decrease pain, To increase ROM, To improve muscle performance and motor function, To improve ability to perform ADL's, To increase tolerance to activity/condition/position, To improve ability of physical actions for home/community/work/leisure, To increase flexibility/ROM, To improve safety with gait, To reduce risk of recurrence, To improve health and function, To improve ability to perform tasks related to life management Therapeutic Exercise to Include: Strength training, Body mechanics, Postural training, Flexibilty training, Dynamic Lumbar Stabilization For the Purpose of:: To decrease pain, To increase ROM, To improve muscle performance and motor function, To improve ability to perform ADL's, To increase tolerance to activity/condition/position, To improve ability of physical actions for home/community/work/leisure, To improve health of tissue, To decrease soft tissue restriction, To improve health and function, To improve ability to perform tasks related to life management TENS: Yes IF ES: Yes Cryotherapy (ice pack, ice massage): Yes Thermo therapy (hot pack): Yes Ultrasound (thermal/non thermal): Yes For the Purpose of:: To decrease pain, To decrease swelling/inflammation, To improve nutrient delivery to tissue, To increase oxygenation perfusion, To improve health of tissue, To decrease soft tissue restriction This patient was last seen in our office . Pertinent comments regarding their Physical therapy will appear below: Patient seen for PT for back pain thus is d/c . At this point I will be discontinuing this patient from physical therapy. I would be happy to see this patient again in the future if found appropriate by the physician. Thank you! Raymon Goff, PT, Cert MDT, OCS
== END 2020-04-03 19:00 | disposition home or self-care (01) ==
LOC: PT 10:00
PROVIDERS: PCP Preventive Medicine Occupational Medicine; Referring Provider Preventive Medicine Occupational Medicine; Visit Provider Preventive Medicine Occupational Medicine
DX: M53.3 Sacrococcygeal disorders, not elsewhere classified (principal); M54.5 Low back pain
CPT/HCPCS: 97110; 97162; 97530

== ENCOUNTER 2021-11-04 12:30 | Outpatient (RCR) | payer MEDICAID, SELFPAY ==
--- NOTE | 2021-10-05 16:21 | HP.PTEVAL_ITS ---
Patient's Visit Information JUAN TAYLOR is a 46 year old F referred to Physical Therapy by Dr. Rian Blanco DO with a diagnosis of LEFT SHOULDER PAIN. Date of Evaluation: 10/05/21 Physical Therapist: Raymon Goff, PT, Cert MDT, OCS - Visit Plan Frequency: 2x /Week Duration: 4 Weeks Plan: PT INTERVENTIONS AROM/AAROM LEFT SHOULDER,MANUAL THERAPY PROM /G-H MOBILIZATION GR 1-3,POSTURAL EX'S AND RTC/SCPAULRA STRENGTHENING - Subjective This 46 y/o female presents to physical therapy for left shoulder pain since Jun 2021. Patient pain was insidious onset pain. Seen DR arash bruno . Provided Voltairean gel and flexural. Pain located left shoulder global. Patient pain radiates to lateral deltoid like a burning pain. Aggravating factors lifting OH ,self hygiene, washing hair bathing and ADLS above 90 degrees .Denies paresthesia only tingling at night. Alleviating factors rest Patient pain affects QOL and function. Patient use rollator and has manual w/c for mobility affects left shoulder. SOCAIL : partner - Pain Left Shoulder Pain Intensity (Out of 10): 7 Pain Intensity Range: 10 Comment: 0/10 at rest - Objective POSTURE: mild forward posture ,rounded shoulders. NEURO: denies paresthesia/tingling. PALPATION: AC. AROM SHOULDER: flexion 100 degrees, abduction 90 degrees ,ER 50 degrees, IR pelvis. MMT: RTC 4/5 except supraspinatus 4-/5 ,deltoid 4-/5. CAPSULAR G-H: MOD TIGHT - Special Tests L Shoulder External Rotation Lag Test - RC Tear: Negative L Shoulder Drop Sign - IS Test: Negative L Shoulder Empty Can - SS: Positive L Shoulder Belly Press - SupScap: Negative L Shoulder Neer - Impingement: Positive L Shoulder Verdin Rizwan - Impingement: Positive L Shoulder Shrug Sign - OA/Adhesive Capsulitis: Positive - Balance/Special Test Scores Quick DASH Score: 68.1800 - Goals Goal 1:: I with HEP for ROM and strengthening shoulder Goal Time Frame: 4-6 Weeks Goal 2:: Patient to demonstrate 50 % improvement with decrease pain to improve funcyion with ADLS' Goal Time Frame: 4-6 Weeks Goal 3:: Patient to improve AROM shoulder flexion 140 degrees, abduction 135 degrees ER 75 degrees ,IR L1 Goal Time Frame: 4-6 Weeks Goal 4:: Patient to increase strength RTC and deltoid 4/5 to improve function with ADL's ABOVE 90 DEGREES Goal Time Frame: 4-6 Weeks Goal 5:: Patient to improve quick dash by 5 points or . to improve QOL and function Goal Time Frame: 4-6 Weeks - Rehabilitation Potential Physical Therapy Diagnosis: This 46 y/o female presents to physical therapy with left shoulder pain adhesive capsulitis with decrease ROM ,strength RTC , impairs ability with activities above 90 degrees for housework tasks and ADLS' Rehabilitation Potential: Good - Anticipated Interventions Patient/Client Instruction: Educate patient on: Condition, Plan of Care For the Purpose of:: To decrease pain, To increase ROM, To improve muscle performance and motor function, To improve ability to perform ADL's, To increase tolerance to activity/condition/position, To improve ability of physical actions for home/community/work/leisure, To improve health of tissue, To decrease soft tissue restriction, To increase flexibility/ROM, To reduce risk of recurrence Therapeutic Exercise to Include: Strength training, Postural training, Flexibilty training, Active ROM, Scapular Strength/Stabilization For the Purpose of:: To decrease pain, To increase ROM, To improve muscle performance and motor function, To improve ability to perform ADL's, To improve performance and independence with ADL's, To improve ability of physical actions for home/community/work/leisure, To improve health of tissue, To decrease soft tissue restriction, To increase flexibility/ROM, To reduce risk of recurrence Manual Therapy Techniques to Include: Mobilization, Passive ROM Comment: G-H GR 1-3 For the Purpose of:: To decrease pain, To increase ROM, To improve muscle performance and motor function, To improve ability to perform ADL's, To increase tolerance to activity/condition/position, To improve ability of physical actions for home/community/work/leisure, To improve health of tissue, To decrease soft tissue restriction, To prevent re-injury TENS: Yes IF ES: Yes Thermo therapy (hot pack): Yes Ultrasound (thermal/non thermal): Yes For the Purpose of:: To decrease pain, To improve nutrient delivery to tissue, To increase oxygenation perfusion, To improve health of tissue, To decrease soft tissue restriction Thank you for the opportunity to evaluate your patient. For Medicare and Medicare HMO plans, please review the plan of care and approve it. It will need to be FAXED BACK to us at [phone] for Medicare purposes. For Medicare only, by signing this I certify the plan of care. Please let me know if there are questions or concerns regarding this plan of care. Physician Signature: Date:
--- NOTE | 2021-11-04 13:11 | HP.PTEVAL ---
Patient's Visit Information JUAN TAYLOR is a 46 year old F referred to Physical Therapy by Dr. Rian Blanoc DO with a diagnosis of LEFT SHOULDER PAIN. Date of Evaluation: 10/05/21 Physical Therapist: Raymon Goff PT, Cert MDT, OCS - Visit Plan Frequency: 2x /Week Duration: 4 Weeks Plan: D/C HEP - Subjective This 46 y/o female presents to physical therapy for left shoulder pain since Jun 2021. Patient pain was insidious onset pain. Seen DR arash bruno . Provided Voltairean gel and flexural. Pain located left shoulder global. Patient pain radiates to lateral deltoid like a burning pain. Aggravating factors lifting OH ,self hygiene, washing hair bathing and ADLS above 90 degrees .Denies paresthesia only tingling at night. Alleviating factors rest Patient pain affects QOL and function. Patient use rollator and has manual w/c for mobility affects left shoulder. SOCAIL : partner - Pain Left Shoulder Pain Intensity (Out of 10): 0 Pain Intensity Range: 10 Comment: 0/10 at rest - Objective POSTURE: mild forward posture ,rounded shoulders. NEURO: denies paresthesia/tingling. PALPATION: AC. AROM SHOULDER: flexion 100 degrees, abduction 90 degrees ,ER 50 degrees, IR pelvis. MMT: RTC 4/5 except supraspinatus 4-/5 ,deltoid 4-/5. CAPSULAR G-H: MOD TIGHT - Special Tests L Shoulder External Rotation Lag Test - RC Tear: Negative L Shoulder Drop Sign - IS Test: Negative L Shoulder Empty Can - SS: Positive L Shoulder Belly Press - SupScap: Negative L Shoulder Neer - Impingement: Positive L Shoulder Verdin Rizwan - Impingement: Positive L Shoulder Shrug Sign - OA/Adhesive Capsulitis: Positive - Balance/Special Test Scores Quick DASH Score: 15.9075 - Goals Goal 1:: I with HEP for ROM and strengthening shoulder Goal Time Frame: 4-6 Weeks Goal 2:: Patient to demonstrate 50 % improvement with decrease pain to improve funcyion with ADLS' Goal Time Frame: 4-6 Weeks Goal 3:: Patient to improve AROM shoulder flexion 140 degrees, abduction 135 degrees ER 75 degrees ,IR L1 Goal Time Frame: 4-6 Weeks Goal 4:: Patient to increase strength RTC and deltoid 4/5 to improve function with ADL's ABOVE 90 DEGREES Goal Time Frame: 4-6 Weeks Goal 5:: Patient to improve quick dash by 5 points or . to improve QOL and function Goal Time Frame: 4-6 Weeks - Rehabilitation Potential Physical Therapy Diagnosis: This 46 y/o female presents to physical therapy with left shoulder pain adhesive capsulitis with decrease ROM ,strength RTC , impairs ability with activities above 90 degrees for housework tasks and ADLS' Rehabilitation Potential: Good - Anticipated Interventions Patient/Client Instruction: Educate patient on: Condition, Plan of Care For the Purpose of:: To decrease pain, To increase ROM, To improve muscle performance and motor function, To improve ability to perform ADL's, To increase tolerance to activity/condition/position, To improve ability of physical actions for home/community/work/leisure, To improve health of tissue, To decrease soft tissue restriction, To increase flexibility/ROM, To reduce risk of recurrence Therapeutic Exercise to Include: Strength training, Postural training, Flexibilty training, Active ROM, Scapular Strength/Stabilization For the Purpose of:: To decrease pain, To increase ROM, To improve muscle performance and motor function, To improve ability to perform ADL's, To improve performance and independence with ADL's, To improve ability of physical actions for home/community/work/leisure, To improve health of tissue, To decrease soft tissue restriction, To increase flexibility/ROM, To reduce risk of recurrence Manual Therapy Techniques to Include: Mobilization, Passive ROM Comment: G-H GR 1-3 For the Purpose of:: To decrease pain, To increase ROM, To improve muscle performance and motor function, To improve ability to perform ADL's, To increase tolerance to activity/condition/position, To improve ability of physical actions for home/community/work/leisure, To improve health of tissue, To decrease soft tissue restriction, To prevent re-injury TENS: Yes IF ES: Yes Thermo therapy (hot pack): Yes Ultrasound (thermal/non thermal): Yes For the Purpose of:: To decrease pain, To improve nutrient delivery to tissue, To increase oxygenation perfusion, To improve health of tissue, To decrease soft tissue restriction Thank you for the opportunity to evaluate your patient. For Medicare and Medicare HMO plans, please review the plan of care and approve it. It will need to be FAXED BACK to us at [phone] for Medicare purposes. For Medicare only, by signing this I certify the plan of care. Please let me know if there are questions or concerns regarding this plan of care. Physician Signature: Date:
--- NOTE | 2021-11-05 08:13 | HP.PTDCSUM ---
It has been my pleasure to treat JUAN TAYLOR referred by Dr. Rian Blanco DO, with the diagnosis of LEFT SHOULDER PAIN for a total of 8 visit(s). Discharge Date: Please see the following information for a summary of their discharge status. Subjective: Doing okay ,but pain is intermittent Left Shoulder Pain Intensity (Out of 10): 0 % Improvement: 40 Objective/Function: POSTURE: WFL. MMT : RTC 4/5,DELTPOD 4/5. AROM: SHOULDER FLEXION 150 DEGREES,ABDUCTION 140 DEGREES,ER 60 DEGREES Goal 1:: I with HEP for ROM and strengthening shoulder Goal Progress: Goal Met Goal 2:: Patient to demonstrate 50 % improvement with decrease pain to improve funcyion with ADLS' Goal Progress: Progressing Goal 3:: Patient to improve AROM shoulder flexion 140 degrees, abduction 135 degrees ER 75 degrees ,IR L1 Goal Progress: Progressing Goal 4:: Patient to increase strength RTC and deltoid 4/5 to improve function with ADL's ABOVE 90 DEGREES Goal Progress: Goal Met Goal 5:: Patient to improve quick dash by 5 points or . to improve QOL and function Goal Progress: Goal Met Plan: D/C HEP If there are questions or concerns regarding this patient's physical therapy, please feel free to call me at [phone]. Thank you for the referral of this patient. Sincerely, Raymon Goff PT, Cert MDT, OCS Balance/Gait/Functional tests - Balance/Special Test Scores Quick DASH Score: [phone]
== END 2021-11-04 19:00 | disposition home or self-care (01) ==
LOC: PT 12:30
PROVIDERS: PCP Preventive Medicine Occupational Medicine; Referring Provider Preventive Medicine Occupational Medicine; Visit Provider Preventive Medicine Occupational Medicine
DX: M25.512 Pain in left shoulder (principal)
CPT/HCPCS: 97110; 97162; 97530

== ENCOUNTER → 2022-06-22 | Outpatient (CLI) | payer MEDICAID, SELFPAY ==
--- NOTE | 2022-06-22 16:20 | SP.MBSS_ITS ---
Modified Barium Swallow - Patient Information Study Date: 06/22/22 Study Time: 13:00 Direct Billable Minutes: 75 Total Minutes procedure & reportin Diagnosis: Dysphagia, unspecified (R13.10) Referring Physician: Jeevan Kumari Reason for Referral: Objectively assess swallow function, risk for aspiration, and determine recommendations for least restrictive diet textures and compensatory strategies to improve safety of swallow. Medical History: The patient is a 46-year-old female with PMH including asthma and KATEY who has been experiencing difficulty swallowing solids, such as raw broccoli, popcorn, bread crumbs, and nuts. She will experience coughing episodes when having difficulty with these foods. Pt admits to eating and drinking with a quick rate. She was referred for MBSS from ENT to assess concerns for swallowing dysfunction. Current Diet Ordered: Regular textures / Thin liquids Dentition: WNL Mental Status: WNL Respiratory Status: Oxygenating on Room Air - Penetration-Aspiration Scale Penetration-Aspiration Scale: OBJECTIVE ASSESSMENT OF SWALLOW FUNCTION (QUANTITATIVE ? PER TRIAL): PENETRATION / ASPIRATION SCALE (SMART): 1 = does not enter airway 2 = enters airway/above vocal folds/ejected 3 = enters airway/above vocal folds/not ejected 4 = enters airway/contacts vocal folds/ejected 5 = enters airway/contacts vocal folds/not ejected 6 = enters airway/below vocal folds/ejected 7 = enters airway/below vocal folds/not ejected despite effort 8 = enters airway/below vocal folds/no effort VIDEOFLOROSCOPIC SCALE SCORE (SMART): Grade I = aspiration of material that has penetrated into the laryngeal vestibule, intact cough reflex Grade II = aspiration < 10 % of the bolus, intact cough reflex Grade III = aspiration of < 10 % of the bolus, reduced cough reflex or aspiration of > 10 % of the bolus, intact cough reflex Grade IV = aspiration of > 10 % of the bolus, reduced cough reflex - Penetration-Aspiration Scale Score Thin Liquid via teaspoon Result: 1= does not enter airway Thin Liquid via teaspoon Trial 2 Result: 2= enter airway/above vocal folds/ejected Thin Liquid via large single sip from cup Result: 2= enter airway/above vocal folds/ejected Thin Liquid via sequential sips from cup Result: 2= enter airway/above vocal folds/ejected [place] Thick Liquid via small single sip from cup Result: 1= does not enter airway Honey Thick Liquid via small single sip from cup Result: 1= does not enter airway Pudding via teaspoon Result: 1= does not enter airway Whole cookie Result: 1= does not enter airway - Oral Phase Labial Seal: No Labial Escape Tongue Control During Bolus Hold: Posterior escape of greater than half of bolus Bolus Preparation/Mastication: Timely and efficient chewing and mashing Bolus Transport/Lingual Motion: Delayed initiation of tongue motion Oral Residue: Trace residue lining oral structures - Pharyngeal Phase Initiation of Pharyngeal Swallow: Bolus head in pyriforms Soft Palate Elevation: No bolus between soft palate and pharyngeal wall Laryngeal Elevation: Comp. Superior move thyroid cart w/comp. apprx arytenoid cart-epig pet Anterior Hyoid Excursion: Partial anterior movement Epiglottic Movement: Complete inversion Laryngeal Vestibule Closure at Height of Swallow: Incomplete; narrow column of air/contrast in laryngeal vestibule Pharyngeal Stripping Wave: Present - complete Pharyngoesophageal Segment Opening: Complete distension and complete duration; no obstruction of flow Tongue Base Retraction: Trace column of contrast between tongue base & post. pharyngeal wall Pharyngeal Residue: Trace residue within or on pharyngeal structures - Diagnosis/Impression Diagnosis: Mild oropharyngeal phase dysphagia (R13.12) Impression: The oral phase is primarily marked by... -Decreased bolus control with large thin liquids via cup with <1/2 of the bolus spilling posteriorly to the pyriforms prior to swallow onset. -Delayed tongue motion for A-P transport. -Timely and adequate mastication and trace oral residue after the swallow. -Trace oral residue after the swallow. The pharyngeal phase is primarily marked by... -Mildly decreased anterior hyoid excursion; however, she maintained good airway closure during the swallow. Trace laryngeal penetration likely due to large and sequential sips of thin liquid spilling to the pyriforms prior to swallow onset. Laryngeal penetration fully ejected from the laryngeal vestibule. No aspiration observed during the study. -Mild delay in swallow onset. -Trace pharyngeal residue after the swallow. - Recommendations Diet: Thin Liquids - Easy to Chew textures (IDDSI Level 7) Compensatory Strategies: Small Bites - take small bites (~size of thumbnail), chew thoroughly, Small Sips, Slow Rate, Alternate bites/solids and sips/liquids, Sitting upright, Remain sitting upright for 30 minutes after PO intake Supervision: Assist as needed - family to provide cues as needed Recommend Repeat Modified Barium Swallow: No Need for Skilled Speech Therapy Services: Yes Comment: Will recommend the patient for outpatient dysphagia therapy to provide the patient thorough education regarding diet recommendations and recommended compensatory strategies. This ASSOCIATE PROFESSOR OF MEDICINE reviewed food testing for the patient to determine Easy to Chew textures (IDDSI Level 7), and pt verbalized understanding. She stated that she wishes to continue with regular textures in the future, so this ASSOCIATE PROFESSOR OF MEDICINE recommended trialing regular textured solids with OP ASSOCIATE PROFESSOR OF MEDICINE while implementing compensatory strategies to decrease risk for aspiration and choking. This ASSOCIATE PROFESSOR OF MEDICINE recommended the patient bring challenging solids to her initial OP ST evaluation. Would consider implementation of Lionel exercise due to mild delay and mildly decreased anterior hyoid excursion. Education Completed: 1. Described result of evaluation., 2. Pt understands evaluation & agrees with goals and treatment plan., 7. Pt requires further education on strategies & risks. - Status Active ST Patient: Active - Contact Information [facility] Speech Therapy:: Ellen Montalvo M.A. [facility]-ASSOCIATE PROFESSOR OF MEDICINE Speech-Language Pathologist [facility] [address] [place] [address] [email or web address] [phone] 06/22/22 16:25
== END | disposition home or self-care (01) ==
PROVIDERS: PCP Preventive Medicine Occupational Medicine; Visit Provider Otolaryngology
DX: R13.10 Dysphagia, unspecified (principal)
CPT/HCPCS: 74230; 92611

== ENCOUNTER → 2022-08-26 | Outpatient (CLI) | payer MEDICAID, SELFPAY | END | disposition home or self-care (01) | PROVIDERS: PCP Preventive Medicine Occupational Medicine; Referring Provider Internal Medicine Critical Care Medicine; Visit Provider Internal Medicine Critical Care Medicine | DX: G47.33 Obstructive sleep apnea (adult) (pediatric) (principal) | CPT/HCPCS: 95801; 95806 ==

== ENCOUNTER → 2022-09-22 | Outpatient (CLI) | payer MEDICAID, SELFPAY | END | disposition home or self-care (01) | LOC: SL 12:18 | PROVIDERS: PCP Preventive Medicine Occupational Medicine; Visit Provider Nurse Practitioner Acute Care | DX: Z00.00 Encounter for general adult medical examination without abnormal findings (principal) ==

== ENCOUNTER → 2022-10-10 | Outpatient (CLI) | payer MEDICAID, SELFPAY | END | disposition home or self-care (01) | LOC: SL 10:48 | PROVIDERS: PCP Preventive Medicine Occupational Medicine; Visit Provider Nurse Practitioner Acute Care | DX: G47.33 Obstructive sleep apnea (adult) (pediatric) (principal) | CPT/HCPCS: 98960; G0463 ==

== ENCOUNTER 2022-10-26 13:00 | Outpatient (RCR) | payer MEDICAID, SELFPAY ==
--- NOTE | 2022-09-05 13:40 | ST ---
Modified Barium Swallow - Patient Information Study Date: 06/22/22 Study Time: 13:00 Direct Billable Minutes: 75 Total Minutes procedure & reportin Diagnosis: Dysphagia, unspecified (R13.10) Referring Physician: Jeevan Kumari Reason for Referral: Objectively assess swallow function, risk for aspiration, and determine recommendations for least restrictive diet textures and compensatory strategies to improve safety of swallow. Medical History: The patient is a 46-year-old female with PMH including asthma and KATEY who has been experiencing difficulty swallowing solids, such as raw broccoli, popcorn, bread crumbs, and nuts. She will experience coughing episodes when having difficulty with these foods. Pt admits to eating and drinking with a quick rate. She was referred for MBSS from ENT to assess concerns for swallowing dysfunction. Current Diet Ordered: Regular textures / Thin liquids Dentition: WNL Mental Status: WNL Respiratory Status: Oxygenating on Room Air - Penetration-Aspiration Scale Penetration-Aspiration Scale: OBJECTIVE ASSESSMENT OF SWALLOW FUNCTION (QUANTITATIVE ? PER TRIAL): PENETRATION / ASPIRATION SCALE (SMART): 1 = does not enter airway 2 = enters airway/above vocal folds/ejected 3 = enters airway/above vocal folds/not ejected 4 = enters airway/contacts vocal folds/ejected 5 = enters airway/contacts vocal folds/not ejected 6 = enters airway/below vocal folds/ejected 7 = enters airway/below vocal folds/not ejected despite effort 8 = enters airway/below vocal folds/no effort VIDEOFLOROSCOPIC SCALE SCORE (SMART): Grade I = aspiration of material that has penetrated into the laryngeal vestibule, intact cough reflex Grade II = aspiration < 10 % of the bolus, intact cough reflex Grade III = aspiration of < 10 % of the bolus, reduced cough reflex or aspiration of > 10 % of the bolus, intact cough reflex Grade IV = aspiration of > 10 % of the bolus, reduced cough reflex - Penetration-Aspiration Scale Score Thin Liquid via teaspoon Result: 1= does not enter airway Thin Liquid via teaspoon Trial 2 Result: 2= enter airway/above vocal folds/ejected Thin Liquid via large single sip from cup Result: 2= enter airway/above vocal folds/ejected Thin Liquid via sequential sips from cup Result: 2= enter airway/above vocal folds/ejected [place] Thick Liquid via small single sip from cup Result: 1= does not enter airway Honey Thick Liquid via small single sip from cup Result: 1= does not enter airway Pudding via teaspoon Result: 1= does not enter airway Whole cookie Result: 1= does not enter airway - Oral Phase Labial Seal: No Labial Escape Tongue Control During Bolus Hold: Posterior escape of greater than half of bolus Bolus Preparation/Mastication: Timely and efficient chewing and mashing Bolus Transport/Lingual Motion: Delayed initiation of tongue motion Oral Residue: Trace residue lining oral structures - Pharyngeal Phase Initiation of Pharyngeal Swallow: Bolus head in pyriforms Soft Palate Elevation: No bolus between soft palate and pharyngeal wall Laryngeal Elevation: Comp. Superior move thyroid cart w/comp. apprx arytenoid cart-epig pet Anterior Hyoid Excursion: Partial anterior movement Epiglottic Movement: Complete inversion Laryngeal Vestibule Closure at Height of Swallow: Incomplete; narrow column of air/contrast in laryngeal vestibule Pharyngeal Stripping Wave: Present - complete Pharyngoesophageal Segment Opening: Complete distension and complete duration; no obstruction of flow Tongue Base Retraction: Trace column of contrast between tongue base & post. pharyngeal wall Pharyngeal Residue: Trace residue within or on pharyngeal structures. - Recommendations Diet: Thin Liquids - Easy to Chew textures (IDDSI Level 7) Compensatory Strategies: Small Bites - take small bites (~size of thumbnail), chew thoroughly, Small Sips, Slow Rate, Alternate bites/solids and sips/liquids, Sitting upright, Remain sitting upright for 30 minutes after PO intake Supervision: Assist as needed - family to provide cues as needed Recommend Repeat Modified Barium Swallow, Need for Skilled Speech Therapy Services: Yes Comment: Will recommend the patient for outpatient dysphagia therapy to provide the patient thorough education regarding diet recommendations and recommended compensatory strategies. This MEDICAL STENOGRAPHER reviewed food testing for the patient to determine Easy to Chew textures (IDDSI Level 7), and pt verbalized understanding. She stated that she wishes to continue with regular textures in the future, so this MEDICAL STENOGRAPHER recommended trialing regular textured solids with OP MEDICAL STENOGRAPHER while implementing compensatory strategies to decrease risk for aspiration and choking. This MEDICAL STENOGRAPHER recommended the patient bring challenging solids to her initial OP ST evaluation. Would consider implementation of Lionel exercise due to mild delay and mildly decreased anterior hyoid excursion. Education Completed: 1. Described result of evaluation., 2. Pt understands evaluation & agrees with goals and treatment plan., 7. Pt requires further education on strategies & risks.
--- NOTE | 2022-09-05 15:07 | HP.SP.EVAL ---
History - History Date of Eval: 09/05/22 Medical Diagnosis (from RX): Dysphagia Date of Onset of Diagnosis: 2012 Previous speech therapy: No Other Relevant Medical History/Diagnoses/Surgery: The patient is a 47-year-old female with PMH including asthma and KATEY who has been experiencing difficulty swallowing solids, such as raw broccoli, popcorn, bread crumbs, and nuts. She will experience coughing episodes when having difficulty with these foods. Pt admits to eating and drinking with a quick rate. She was referred for MBSS from ENT to assess concerns for swallowing dysfunction. Smoking Status: Never smoker Hx Smoking: No Hx Tobacco Use: No - Pain Is pain an issue with your current prescribed condition?: No Patient Allergies - Allergies [facility] Adverse Reaction (Intermediate, Verified 08/11/22 11:04) Nausea Subjective Dysphagia - Symptoms Reported Symptoms/Problems with: Coughing - Current Diet Solids Current Diet: Regular - Current Diet Liquids Current Liquids: Thin [place] free water Protocol: No - Comments Concerns -: Patient is concerned that the recommendations by AIRPORT DUTY MANAGER from MBSS will be in conflict with recommendations for eating after bariatric surgery. Example is speech therapy recommended alternating bites and sips whereas she reported that after surgery they told her that she isn't to drink 30 minutes before, during or 30 minutes after a meal. Objective Dysphagia - Recommendations Swallowing Treatment: Yes - Diet Texture Recommendations Solids: Regular (Level 7) Liquids: Thin (Level 0) [place] free water Protocol: No - Safety Saftey Precautions/Swallowing Recommendations (Check all that Apply): Upright Position at Least 30 Minutes After Meals, Small Sips & Bites when Eating, Alternate Liquids & Solids - Results Swallowing Within Normal Limits: No Swallowing Diagnosis: Oropharyngeal Phase Dysphagia (R13.12) Severity: Mild Modified Barium Results Hx MBS Results (from prior exam): 09/05/22 13:40 Speech Therapy by Lee Figueroa Modified Barium Swallow - Patient Information Study Date: 06/22/22 Study Time: 13:00 Direct Billable Minutes: 75 Total Minutes procedure & reportin Diagnosis: Dysphagia, unspecified (R13.10) Referring Physician: Jeevan Kumari Reason for Referral: Objectively assess swallow function, risk for aspiration, and determine recommendations for least restrictive diet textures and compensatory strategies to improve safety of swallow. Medical History: The patient is a 46-year-old female with PMH including asthma and KATEY who has been experiencing difficulty swallowing solids, such as raw broccoli, popcorn, bread crumbs, and nuts. She will experience coughing episodes when having difficulty with these foods. Pt admits to eating and drinking with a quick rate. She was referred for MBSS from ENT to assess concerns for swallowing dysfunction. Current Diet Ordered: Regular textures / Thin liquids Dentition: WNL Mental Status: WNL Respiratory Status: Oxygenating on Room Air - Penetration-Aspiration Scale Penetration-Aspiration Scale: OBJECTIVE ASSESSMENT OF SWALLOW FUNCTION (QUANTITATIVE ? PER TRIAL): PENETRATION / ASPIRATION SCALE (SMART): 1 = does not enter airway 2 = enters airway/above vocal folds/ejected 3 = enters airway/above vocal folds/not ejected 4 = enters airway/contacts vocal folds/ejected 5 = enters airway/contacts vocal folds/not ejected 6 = enters airway/below vocal folds/ejected 7 = enters airway/below vocal folds/not ejected despite effort 8 = enters airway/below vocal folds/no effort VIDEOFLOROSCOPIC SCALE SCORE (SMART): Grade I = aspiration of material that has penetrated into the laryngeal vestibule, intact cough reflex Grade II = aspiration < 10 % of the bolus, intact cough reflex Grade III = aspiration of < 10 % of the bolus, reduced cough reflex or aspiration of > 10 % of the bolus, intact cough reflex Grade IV = aspiration of > 10 % of the bolus, reduced cough reflex - Penetration-Aspiration Scale Score Thin Liquid via teaspoon Result: 1= does not enter airway Thin Liquid via teaspoon Trial 2 Result: 2= enter airway/above vocal folds/ejected Thin Liquid via large single sip from cup Result: 2= enter airway/above vocal folds/ejected Thin Liquid via sequential sips from cup Result: 2= enter airway/above vocal folds/ejected [place] Thick Liquid via small single sip from cup Result: 1= does not enter airway [place] Thick Liquid via small single sip from cup Result: 1= does not enter airway Pudding via teaspoon Result: 1= does not enter airway Whole cookie Result: 1= does not enter airway - Oral Phase Labial Seal: No Labial Escape Tongue Control During Bolus Hold: Posterior escape of greater than half of bolus Bolus Preparation/Mastication: Timely and efficient chewing and mashing Bolus Transport/Lingual Motion: Delayed initiation of tongue motion Oral Residue: Trace residue lining oral structures - Pharyngeal Phase Initiation of Pharyngeal Swallow: Bolus head in pyriforms Soft Palate Elevation: No bolus between soft palate and pharyngeal wall Laryngeal Elevation: Comp. Superior move thyroid cart w/comp. apprx arytenoid cart-epig pet Anterior Hyoid Excursion: Partial anterior movement Epiglottic Movement: Complete inversion Laryngeal Vestibule Closure at Height of Swallow: Incomplete; narrow column of air/contrast in laryngeal vestibule Pharyngeal Stripping Wave: Present - complete Pharyngoesophageal Segment Opening: Complete distension and complete duration; no obstruction of flow Tongue Base Retraction: Trace column of contrast between tongue base & post. pharyngeal wall Pharyngeal Residue: Trace residue within or on pharyngeal structures. - Recommendations Diet: Thin Liquids - Easy to Chew textures (IDDSI Level 7) Compensatory Strategies: Small Bites - take small bites (~size of thumbnail), chew thoroughly, Small Sips, Slow Rate, Alternate bites/solids and sips/liquids, Sitting upright, Remain sitting upright for 30 minutes after PO intake Supervision: Assist as needed - family to provide cues as needed Recommend Repeat Modified Barium Swallow, Need for Skilled Speech Therapy Services: Yes Comment: Will recommend the patient for outpatient dysphagia therapy to provide the patient thorough education regarding diet recommendations and recommended compensatory strategies. This AIRPORT DUTY MANAGER reviewed food testing for the patient to determine Easy to Chew textures (IDDSI Level 7), and pt verbalized understanding. She stated that she wishes to continue with regular textures in the future, so this AIRPORT DUTY MANAGER recommended trialing regular textured solids with OP AIRPORT DUTY MANAGER while implementing compensatory strategies to decrease risk for aspiration and choking. This AIRPORT DUTY MANAGER recommended the patient bring challenging solids to her initial OP ST evaluation. Would consider implementation of Lionel exercise due to mild delay and mildly decreased anterior hyoid excursion. Education Completed: 1. Described result of evaluation., 2. Pt understands evaluation & agrees with goals and treatment plan., 7. Pt requires further education on strategies & risks. Initialized on 09/05/22 13:40 - END OF NOTE Other - Other Analysis -: Patient reported that swallowing deficit is dependent upon certain foods. Therapist requested that she bring in the foods that are challenging to evaluate. She requested to be placed on regular textures level 7 when Easy to Chew textures (IDDSI Level 7). Plan - Plan Plan: Speech therapy for mild dysphagia is warranted to evaluate challenging foods while patient utilizes strategies to reduce coughing. - Recommendations Treatment Warranted: Yes Treatment Warranted: Dysphagia - Progress Prognosis: Good - Frequency Frequency: 1x/Week Duration: 4 Weeks Visits in this POC: 4 - Goals that are Established Determination:: Goals will be added/modified as deemed necessary and appropriate. Therapy will be discontinued when results of re-evaluation indicate therapy is no longer needed or lack of progress has been documented. - Goal #1-5 Goal #1: The Patient will demonstrate and utilize recommended compensatory swallowing techniques to facilitate improved airway protection and decreased risk for aspiration during PO intake, across 3 out of 3 sessions. Goal #2: The Patient will tolerate the least restrictive means of nutrition with optimum safety and efficiency of swallowing function during P.O. intake without overt signs and symptoms of aspiration. Education - Patient has Indicated that the Following Identified Educational Needs: None The Patient has indicated that they have no educational or learning abilities that may effect their care.: Yes - Patient Instruction Patient Education: Diagnosis, Treatment Plan Person Taught: Patient Teaching Method: Discussion Response to teaching: Verbalize understanding
--- NOTE | 2022-10-12 11:20 | HP.PTEVAL ---
Patient's Visit Information JUAN TAYLOR is a 47 year old F referred to Physical Therapy by Dr. Jeevan Kumari MD with a diagnosis of Obesity. Date of Evaluation: 10/12/22 Physical Therapist: Rylee Rutledge DPT - Visit Plan Plan: Wheelchair evaluation - Subjective Power mobility assessment today- has been through an evaluation with [facility] and she has a quote. They have also looked at her home set up. She lives in a two story home with a basement but she stays on the main level. Living room and dining room- she can be in her w/c but if she has to go to the bathroom she can walk with a rollator. She is able to ambulate short distances but not long distances. She has two manual w/c that she uses. You can propel with her legs but they tire quickly. She has a bariatric rollator- if she is in the kitchen she uses the rollator- she sits and scoots on it the kitchen and at stores. 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 She is not having bariatric surgery at this time- but she is a candidate for it. To get into her house she has a 1 cement slab but they built a 2x4 step to make it a half a step. She does not have a ramp at this time. She lives with her daughter- and has help if needed. She is having issues washing herself but she is having a hard time getting a bath assistance- she is looking for help and her MD is aware. She sits in the shower- with a shower chair. 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 She does not currently have any way to transport a power w/c but can look into it if she is eligible. She reports pain in the left shoulder 15/10. She normally has pain in her legs when she walks too far. Sleeps in a hospital bed- head and feet elevated- she can get herself in/out of the bed. Height: 5'5 Weight: 465. She does not know if she has and pressure ulcers due to not being able to see them. She has never had pressure issues before. Incont with urine at night- so she has a bedside commode. When in her w/c in the community her primary mode is using her legs to push herself backwards and the community terrain is very challenging obstacles and inclines. PMHx/Meds: see scanned in. - Objective Posture: FH, RS- can correct but is unable to maintain. ROM: Cervical: WNL, UE: Right: Shoulder/Elbow/Wrist: WFL in all planes Left: Shoulder: 120 degrees, abd: 100 degrees, Extn: WFL, Elbow/Wrist/Hand: WFL Lumbar: WFL, LE: WFL. Strength: Right: Shoulder: 5/5, Elbow: 5/5 Customer Service Attendant: 70 Scap: fair, Left: Shoulder: 4+/5 within available range.Elbow: 5/5 Customer Service Attendant: 70. LE: 5/5 throughout bilateral. Ambulation with Quad Cane: 102 feet mod I with SOB. Transfers: no A required. Sensation: Sensation: WFL to gross touch throughout UE and LE. Transfers: able to perform all without assistance - Anticipated Interventions Thank you for the opportunity to evaluate your patient. For Medicare and Medicare HMO plans, please review the plan of care and approve it. It will need to be FAXED BACK to us at [phone] for Medicare purposes. For Medicare only, by signing this I certify the plan of care. Please let me know if there are questions or concerns regarding this plan of care. Physician Signature: Date:
--- NOTE | 2022-10-12 11:20 | HP.PT.NRP ---
JUAN TAYLOR was seen in my office for initial evaluation on 10/12/22. The following Plan of Care was established for this patient: This patient was last seen in our office . Pertinent comments regarding their Physical therapy will appear below: Wheelchair eval At this point I will be discontinuing this patient from physical therapy. I would be happy to see this patient again in the future if found appropriate by the physician. Thank you! ELMO GrimaldoT
--- NOTE | 2022-10-26 15:49 | HP.SP.DC ---
ST Discharge Summary - Discharged: Discharge: Brandy Lazo is discharged from speech therapy for dysphagia as of October 26, 2022. She was evaluated on 09/05/22 with therapy recommended weekly. She attended 7 sessions after her initial evaluation. Therapy focused on using oral intake strategies for safer swallowing. The patient was provided with extensive education regarding her strategies following the MBSS. She had many questions regarding bite size with a variety of spoons. She is on a soft diet with thin liquids. She expressed concern regarding future bariatric surgery and the use of taking sips during her meal. The patient verbalized an understanding of all strategies including small bites/sips and alternating bites and drinks. At this time no further therapy is not necessary. Thank you for allowing me to participate in the care of this patient.
== END 2022-10-26 19:00 | disposition home or self-care (01) ==
LOC: SP 13:00
PROVIDERS: PCP Preventive Medicine Occupational Medicine; Referring Provider Otolaryngology; Visit Provider Otolaryngology
DX: R13.10 Dysphagia, unspecified (principal)
CPT/HCPCS: 92507; 92526; 92610; 97162

== ENCOUNTER → 2023-03-08 | Outpatient (CLI) | payer MEDICAID, SELFPAY | END | disposition home or self-care (01) | LOC: SL 19:16 | PROVIDERS: PCP Preventive Medicine Occupational Medicine; Referring Provider Nurse Practitioner Acute Care; Visit Provider Nurse Practitioner Acute Care | DX: G47.33 Obstructive sleep apnea (adult) (pediatric) (principal) | CPT/HCPCS: 95811 ==

== ENCOUNTER → 2023-04-03 | Outpatient (CLI) | payer MEDICAID, SELFPAY | END | disposition home or self-care (01) | LOC: SL 09:51 | PROVIDERS: PCP Preventive Medicine Occupational Medicine; Visit Provider Nurse Practitioner Acute Care | DX: Z00.00 Encounter for general adult medical examination without abnormal findings (principal) ==

== ENCOUNTER → 2023-05-02 | Outpatient (CLI) | payer MEDICAID, SELFPAY | END | disposition home or self-care (01) | LOC: SL 11:17 | PROVIDERS: PCP Preventive Medicine Occupational Medicine; Referring Provider Nurse Practitioner Acute Care; Visit Provider Nurse Practitioner Acute Care | DX: G47.33 Obstructive sleep apnea (adult) (pediatric) (principal) | CPT/HCPCS: 98960; G0463 ==

== ENCOUNTER → 2023-09-12 | Outpatient (CLI) | payer MEDICAID, SELFPAY ==
--- OUTSIDE RECORDS SUMMARY | 2023-09-12 20:06 | XMS RPT_ITS | CCD ---
Author Name Unknown Address [address] [place] [address] Organization [facility] Care Team Providers Care Candle Pourer Name Role Phone Chelo More Unavailable Unavailable Jocelyn, Maia L Unavailable Unavailable ShErica jimenez Unavailable Unavailable Francois Atkinsoni Unavailable Unavailable Jocelyn, Maia L Unavailable Unavailable Gail Ott Unavailable Unavailable Jocelyn, Maia L Unavailable Unavailable Unavailable Layla Blanco Unavailable LAYLA BLANCO DO Primary Care Physician [phone] LAYLA BLANCO DO Primary Care Physician [phone] Maia Camacho MD Primary Care Provider [phone] Layla Blanco DO Primary Care Provider [phone] JOEL FERGUSON Attending Unavailable JOCELYN, MAIA L Primary Care Unavailable JASKARAN CARTER Referring Unavailable JOCELYN, MAIA Niru Primary Care Unavailable DEL VALENCIA Attending Unavailable LAYLA BLANCO Primary Care Unavailable Layla Blanco DO Primary Care Provider [phone] ALFIE BLAKE MD Attending Unavailable LAYLA BLANCO DO Primary Care Unavailable VANDA ROJAS Attending Unavail able LAYLA BLANCO DO Primary Care Unavailable OBDULIO SUNG MD Attending Unavaila LAYLA Thomas DO Primary Care Unavailable OBDULIO USNG MD Attending Unavaila LAYLA Thomas DO Primary Care Unavailable LAYLA BLANCO DO Attending Unavailable LAYLA BLANCO DO Primary Care Unavailable DR MICKEY CLINTON MD, V Attending LAYLA Espinosa DO Primary Care Unavailable Allergies Allergy Classification Reported Allergen(s) Allergy Type Date of Onset Reaction(s) Facility (19 sources) dulaglutide; Translations: [Trulicity SOPN] Drug Allergy 04-19-2021 GI Upset [facility] (9 sources) dulaglutide; Translations: [dulaglutide] Drug Allergy nausea [facility] (10 sources) Seasonal allergy; Translations: [SEASONAL ALLERGIES] Allergy to substance 06-14-2017 Itching [facility] (2 sources) dulaglutide; Translations: [DULAGLUTIDE] Drug Allergy 04-19-2021 [facility] [place] [facility] Medications Current Medications Medication Drug Class(es) Dates Sig (Normalized) Sig (Original) albuterol MDI (90 mcg/inh) CFC free inhalation aerosol (9 sources) Start: 07-05-2023 take 2 puff(s) by inhalation every four hours as needed for wheezing albuterol MDI (90 mcg/inh) CFC free inhalation aerosol 2 puff(s), Inhalation, q4h, PRN as needed for wheezing, # 1 EA, 1 Refill(s), Pharmacy: [place] [id number], Reactive airway disease with wheezing, 165, cm, 06/05/23 9:53:00 EDT, Height, kg, 06/05/23 9:53:00 EDT, Dosing Weight Start Date: 07/05/23 Status: Ordered Completed/Discontinued Medications Medication Drug Class(es) Dates Sig (Normalized) Sig (Original) 8 hr acetaminophen 650 mg extended release oral tablet (8 sources) Start: 04-28-2021 8 Hour Arthritis Pain Reliever 650 MG Oral Tablet Extended Release Quantity: 0 Refills: 0 Ordered: 28-Apr-2021 [facility] [employer] HAND[employer] HELPER-[employer] GRADER, Ellen Start : 28-Apr-2021 Active 200 actuat albuterol 0.09 mg/actuat dry powder inhaler (20 sources) beta2-Adrenergic Agonist Start: 03-30-2016 PROAIR RESPICLICK 108 (90 Base) MCG/ACT AEPB PRN ALBUTEROL SULFATE [id number] Evi Richard CNP Problems Active Problems Problem Classification Problem Date Documented Da te Episodic/Chronic Asthma (20 sources) Asthma; Translations: [Asthma, unspecified type, unspecified] Onset: 03-31-2016 03-31-2016 Chronic Past or Other Problems Problem Classification Problem Date Documented Da te Episodic/Chronic Other aftercare (11 sources) Post-discharge follow-up; Translations: [Other follow-up examination] Resolved: 11-12-2014 Episodic Results Test Name Value Interpretation Reference Range Facil ity Vital Signs Date Time Vital Sign Value Performing Clinician Facility 01-26-2023 17:39-0400 Diastolic Blood Pressure Non-Invasive [address] MICKEY CLINTON MD [facility] 01-26-2023 17:39-0400 Heart rate 70 /min DR MICKEY CLINTON MD [facility] 01-26-2023 17:39-0400 Respiratory rate 18 /min DR MICKEY CLINTON MD [facility] 01-26-2023 17:39-0400 Systolic Blood Pressure Non-Invasive [address] MICKEY CLINTON MD [facility] 01-26-2023 16:25-0400 Body temperature 97.7 [degF] DR MICKEY CLINTON MD [facility] 01-26-2023 16:25-0400 Diastolic Blood Pressure Non-Invasive [address] MICKEY CLINTON MD [facility] 01-26-2023 16:25-0400 Heart rate 71 /min DR MICKEY CLINTON MD [facility] 01-26-2023 16:25-0400 Respiratory rate 24 /min DR MICKEY CLINTON MD [facility] 01-26-2023 16:25-0400 Systolic Blood Pressure Non-Invasive [address] MICKEY CLINTON MD [facility] 11-07-2022 09:32-0400 Body height 165.1 cm Del Valencia B[employer]OCK HANDLER HELPER.[employer]ADER Work Phone: [facility] 11-07-2022 09:32-0400 Body weight 218.18 kg Del Valencia BAGGER AND STOCK HANDLER HELPER.[employer]ADER Work Phone: [facility] 11-07-2022 09:32-0400 Heart rate 63 /min Del Valencia B[employer]GER AND STOCK HANDLER HELPER.[employer] GRADER Work Phone: [facility] 11-07-2022 09:32-0400 SaO2% (BldA) [Mass fraction] 97 % Del Valencia BAGGER AND STOCK HANDLER HELPER.[employer] GRADER Work Phone: [facility] 07-18-2022 08:52-0500 Body height 165.1 cm Joel Ferguson MD Work Phone: [facility] 07-18-2022 08:52-0500 Body weight 205.48 kg Joel Ferguson MD Work Phone: [facility] 06-22-2022 18:01-0500 Body height 155 cm ALFIE BLAKE MD [facility] 06-22-2022 18:01-0500 Body weight 205.9 kg ALFIE BLAKE MD [facility] 06-22-2022 18:01-0500 Diastolic Blood Pressure Non-Invasive 88 1 ALFIE BLAKE MD [facility] 06-22-2022 18:01-0500 Heart rate 84 /min ALFIE BLAKE MD [facility] 06-22-2022 18:01-0500 Respiratory rate 20 /min ALFIE BLAKE MD [facility] 06-22-2022 18:01-0500 Systolic Blood Pressure Non-Invasive 160 1 ALFIE BLAKE MD [facility] 05-26-2021 15:16-0400 Body mass index (BMI) [Ratio] 77.68 kg/m2 Layla Blanco Work Phone: LF[facility]Zdpzdxy[facility]Axrau [facility] Work Phone: 05-26-2021 15:16-0400 Body surface area Derived from formula 2.84 m2 Layla Blanco Work Phone: OZ-Mvxdrnh-Bzqmd [facility] Work Phone: 05-26-2021 15:16-0400 Body weight 211.74 kg Layla Blanco Work Phone: FN-Rmzgwns-Llbaa [facility] Work Phone: 04-28-2021 10:13-0400 Diastolic blood pressure 75 mm[Hg] Maia L Jocelyn Work Phone: AY-Mwgxxcv-Amvwl [facility] Work Phone: 04-28-2021 10:13-0400 Systolic blood pressure 143 mm[Hg] Maia L Jocelyn Work Phone: UJ-Rraayxc-Pxsjp [facility] Work Phone: 04-28-2021 08:50-0400 Body height 165.1 cm Maia L Jocelyn Work Phone: FL-Huyydyy-Tiyfo [facility] [address] Work Phone: 04-28-2021 08:50-0400 Body mass index (BMI) [Ratio] 79.71 kg/m2 Maia L Jocelyn Work Phone: EY-Varuyku-Edcyp [facility] Work Phone: 04-28-2021 08:50-0400 Body surface area Derived from formula 2.87 m2 Maia L Jocelyn Work Phone: QZ-Slahdsz-Mrteg [facility] Work Phone: 04-28-2021 08:50-0400 Body weight 217.27 kg Maia L Jocelyn Work Phone: ZG-Zstqqpi-Edaso [facility] Work Phone: 04-28-2021 08:50-0400 Diastolic blood pressure 95 mm[Hg] Maia L Jocelyn Work Phone: QM-Efikhcs-Tjlan [facility] Work Phone: 04-28-2021 08:50-0400 Heart rate 70 /min Maia L Jocelyn Work Phone: FP-Wyetlec-Lpljo [facility] Work Phone: 04-28-2021 08:50-0400 SaO2% (BldA) [Mass fraction] 97 % Maia L Jocelyn Work Phone: MV-Qehsazd-Kqsir [facility] Work Phone: 04-28-2021 08:50-0400 Systolic blood pressure 161 mm[Hg] Maia L Jocelyn Work Phone: SN-Eiococt-Dvxfq [facility] Work Phone: 04-15-2021 14:55-0400 Body height 165.1 cm Maia L Jocelyn Work Phone: [facility] Work Phone: 04-15-2021 14:55-0400 Body mass index (BMI) [Ratio] 79.88 kg/m2 Maia L Jocelyn Work Phone: [facility] Work Phone: 04-15-2021 14:55-0400 Body surface area Derived from formula 2.87 m2 Maia L Jocelyn Work Phone: [facility] Work Phone: 04-15-2021 14:55-0400 Body weight 217.73 kg Maia L Jocelyn Work Phone: [facility] Work Phone: 05-10-2017 06:13-0400 BMI (Body Mass Index) 105.81 kg/m2 [facility] Work Phone: 05-10-2017 06:13-0400 Body Temperature 97.4 [degF] [facility] Work Phone: 05-10-2017 06:13-0400 BP Diastolic 90 mm[Hg] [facility] Work Phone: 05-10-2017 06:13-0400 BP Systolic 156 mm[Hg] Chel[facility] Work Phone: 05-10-2017 06:13-0400 Height 142.24 cm [facility] Work Phone: 05-10-2017 06:13-0400 Pulse (Heart Rate) 72 /min [facility] Work Phone: 05-10-2017 06:13-0400 Respiratory Rate 18 /min [facility] Work Phone: 05-10-2017 06:13-0400 Weight 214.1 kg [facility] Work Phone: 05-10-2016 10:38-0400 Body Temperature 97.16 [degF] [facility] Work Phone: 05-10-2016 10:38-0400 BSA (Body Surface Area) 2.53 m2 [facility] Work Phone: 05-10-2016 10:38-0400 Height 142.24 cm [facility] Work Phone: 05-10-2016 10:38-0400 Weight 208.64 kg [facility] Work Phone: Encounters Encounter Date Encounter Type Care Provider Facility Start: 09-07-2023 End: 09-07-2023 Patient encounter procedure LAYLA BLANCO DO [facility] Start: 05-15-2023 End: 05-16-2023 ambulatory VANDA BRANTLEY [employer] HANDLER HELPER-[employer]ADER Facility:B Start: 04-07-2023 ambulatory Joel Ferguson MD Work Phone: Orthopaedics Procedures Date Procedure Procedure Detail Performing Clinician Start: 10-14-2022 Us retroperitoneal r eal time w/image complete Jaskaran Carter B[employer] AND STOCK HANDLER HELPER.[employer]ADER Work Phone: Start: 08-10-2021 Psychiatric diagnost ic evaluation Layla Mayito Jaskaran Work Phone: Start: 07-21-2021 Follow-up visit Start: 08-07-2015 Mammography LENORA SCALES MD Plan of Treatment Date Care Activity Detail Author Start: 11-08-2023 End: 12-07-2023 US KIDNEY/BLADDER US KIDNEY/BLADDER Radiology Routine Renal cyst- Right complex Expected: 11/08/2023, Expires: 12/07/2023 [facility] Work Phone: Payers Date Payer Category Payer Medicaid [id number] 2018 Medicaid [id number] 2018 Medicaid [id number] 1975 Unknown [id number] [id number] 1975 Unknown [id number] [id number] 1975 Unknown [id number] 2.16.8 [id number] 1975 Unknown [id number] 2.16.8 [id number] 1975 Unknown [id number] 2.16.8 [id number] 1975 Unknown [id number] [id number] Unknown [employer] Social History Date Type Detail Facility Start: 08-20-2022 End: 11-07-2022 Never a smoker Never a smoker [facility] Work Phone: Functional Status Date Assessment Result Facility 01-26-2023 Functional Status Independent Katharine estevez [facility] 01-26-2023 Functional Status Standard Safet y ID band on, Call device within reach, Bed in low position, Wheels locked, Bedside Cart Locked, Safety level maintained [facility] 06-22-2022 Functional Status Up ad cami [facility] NEGATED: Highlighted row Functional performance Functional status health issues are not documented Disease [facility] Work Phone: Mental Status Date Assessment Result Facility 01-26-2023 Mental Status Orientation Orie nted x 4 [facility] 01-26-2023 Mental Status [facility] 06-22-2022 Mental Status Oriented x 4 [facility] NEGATED: Highlighted row Cognitive function [Interpretation] Cognitive status health issues are not documented Disease [facility] Work Phone: Clinical Notes 06-22-2022 to 04-14-2023 Telephone Encounter - Joel Ferguson MD - 04/14/2023 11:56 PM EDTTelephone Encounter - Deidre Garces RN - 01/26/2023 3:40 PM EDTTelephone Encounter - Ariane Guillory - 01/24/2023 12:54 PM EDT Note Date & Type Note Facility 04-14-2023 Miscellaneous Notes I'm very sorry that you are having such a hard time. I unfortunately do not have any ideas or resources for you. I do not have experience or training to assist with some of your concerns. Even if you are not eligible for Bariatrics, is there a way that one of their offices can help with some of these things since they are much more frequently working with people who have problems with weight/obesity? I'm not entirely sure, but I would consider looking into that first. I wish you very well. documented in this encounter [facility] 01-26-2023 Hospital Discharge instructions Patient Education 01/26/2023 17:15:40 Knee Pain of Uncertain Cause Knee Pain with Uncertain Cause There are several common causes for knee pain. These can include: A sprain of the ligaments that support the joint An injury to the cartilage lining of the joint Arthritis from ixzq-mmw-ebno or inflammation There are other causes as well. There may also be swelling, reduced movement of the knee joint, and pain with walking. A definite diagnosis will still need to be made. If your symptoms don't improve, further follow-up and testing may be needed. Home care Stay off the injured leg as much as possible until pain improves. Apply an ice pack over the injured area for 15 to 20 minutes every 3 to 6 hours. You should do this for the first 24 to 48 hours. You can make an ice pack by filling a plastic bag that seals at the top with ice cubes and then wrapping it with a thin towel. Continue to use ice packs for relief of pain and swelling as needed. As the ice melts, be careful not to get your wrap, splint, or cast wet. After 48 hours, apply heat (warm shower or warm bath) for 15 to 20 minutes several times a day, or alternate ice and heat. If you have to wear a nafc-cgc-skty knee brace, you can open it to apply the ice pack, or heat, directly to the knee. Never put ice directly on the skin. Always wrap the ice in a towel or other type of cloth. You may use msag-zyo-jcsggqp pain medicine to control pain, unless another pain medicine was prescribed. If you have chronic liver or kidney disease or ever had a stomach ulcer or gastrointestinal bleeding, talk with your healthcare provider before using these medicines. If crutches or a walker have been recommended, don't put weight on the injured leg until you can do so without pain. Check with your healthcare provider before returning to sports or full work duties. If you have a kqep-vkr-fqqm knee brace, you can remove it to bathe and sleep, unless told otherwise. Follow-up care Follow up with your healthcare provider as advised. This is usually within 1 to 2 weeks. If X-rays were taken, you will be told of any new findings that may affect your care Call 911 Call 911 if you have: Shortness of breath Chest pain When to seek medical advice Call your healthcare provider right away if any of these occur: Toes or foot becomes swollen, cold, blue, numb, or tingly Pain or swelling spreads over the knee or calf Warmth or redness appears over the knee or calf Other joints become painful Rash appears Fever of 100.4 F (38 C) or higher, or as directed by your healthcare provider Carmella [phone] [employer]. [address] [place] [address]. All rights reserved. This information is not intended as a substitute for professional medical care. Always follow your healthcare professional's instructions. 01/26/2023 17:15:22 CONTUSION, Lower Extremity Contusion:Lower Extremity You have a CONTUSION of your LOWER extremity (leg, knee, ankle, foot, or toes). This causes local pain, swelling and sometimes bruising. There are no broken bones. This injury may take from a few days to a few weeks to heal. Home Care: 1) Keep your leg elevated to reduce pain and swelling. When sleeping, place a pillow under the injured leg. When sitting, support the injured leg so it is level with your waist. This is very important during the first 48 hours. 2) If CRUTCHES have been advised, do not bear full weight on the injured leg until you can do so without pain. You may return to sports when you are able to hop and run on the injured leg without pain. 3) Apply an ice pack (ice cubes in a plastic bag, wrapped in a towel) over the injured area for 20 minutes every 1-2 hours the first day for pain relief. Continue this 3-4 times a day until the pain and swelling goes away. 4) You may use acetaminophen (Tylenol) or ibuprofen (Motrin, Advil) to control pain, unless another pain medicine was prescribed. [ NOTE : If you have chronic liver or kidney disease or ever had a stomach ulcer or GI bleeding, talk with your doctor before using these medicines.] Follow Up with your doctor or this facility if you are not starting to improve within the next THREE days. [NOTE: If X-rays were taken, they will be reviewed by a radiologist. You will be notified of any new findings that may affect your care.] Get Prompt Medical Attention if any of the following occur: -- Pain or swelling increases -- Toes become cold, blue, numb or tingly -- Redness, warmth or drainage from the skin [phone] [employer]. [address] [place] [address]. All rights reserved. This information is not intended as a substitute for professional medical care. Always follow your healthcare professional's instructions. Follow Up Care 01/26/2023 16:24:11 With:BUD HENLEY Address: [address] [place] [phone] Business (1) When:2-4 days Comments:Return to ED if symptoms worsen With:LAYLA BLANCO Address: [address] [place] [phone] Business (1) When:2-4 days [facility] 01-26-2023 Note Discharge Instructions Thank you for allowing [facility] to assist you with your healthcare needs. The following is important discharge information regarding your hospital visit. Diagnosis from Today's Visit Contusion of right knee Knee pain-swelling What to Do Next Instructions from Your Care Team No qualifying data available. Post Acute Orders No qualifying data available. You Need to Schedule the Following Appointments Follow Up with BUD HENLEY When Within 2-4 days Why: Return to ED if symptoms worsen Where: [address] [place] [phone] Business (1) Follow Up with LAYLA BLANCO When Within 2-4 days Where: [address] [place] [phone] Business (1) Allergies Trulicity Pen (nausea) Medications Please ask your primary doctor or pharmacist before taking any other medication not listed, including over the counter drugs, herbal medications, vitamins and or supplements as they may interact with your home medications. What How Much When Why Instructions Last Dose Unchanged albuterol (albuterol MDI (90 mcg/ inh) CFC free inhalation aerosol) 2 puff(s) by inhalation Every 4 hours as needed for as needed for wheezing Reactive airway disease with wheezing Unchanged buPROPion (buPROPion 75 mg oral tablet) 1 tab(s) by mouth Every day Unchanged cholecalciferol (Vitamin D3 125 mcg (5000 intl units) oral capsule) 1 cap by mouth Once a day Vitamin D deficiency Unchanged cyanocobalamin (B-12 1000 mcg oral tablet) 1 tab(s) by mouth Once a day Unchanged cyclobenzaprine (cyclobenzaprine 10 mg oral tablet) 1 tab(s) by mouth Three (3) times a day as needed for Spasm Unchanged dextromethorphan-promethazine (dextromethorphan-promethazine 15 mg-6.25 mg/ 5 mL oral syrup) 5 Milliliter by mouth Every 6 hours as needed for for cough Unchanged diclofenac (diclofenac sodium 75 mg oral delayed release tablet) 1 tab(s) by mouth Two (2) times a day Unchanged diclofenac topical (diclofenac 1% topical gel) 2 gram(s) Topical Four (4) times a day Left shoulder pain Unchanged DME (DME MISCellaneous) See instructions Morbid obesity with BMI of 70 and over, adult Dispense 1 long-handled rectum wiper, UAD Unchanged DME (DME MISCellaneous) See instructions Urge urinary incontinence Morbid obesity with BMI of 70 and over, adult Dispense 1 bariatric bedside commode Unchanged DME (DME MISCellaneous) See instructions Morbid obesity with BMI of 70 and over, adult Needs a wiping stick or device to help with personal hygiene due to body habitus Unchanged DME (DME MISCellaneous) See instructions Morbid obesity with BMI of 70 and over, adult Pain of lumbosacral spine Dispense a 26 inch wheelchair seat cushion Unchanged DME (DME MISCellaneous) See instructions Morbid obesity with BMI of 70 and over, adult Dispense 1 bariatric hospital bed mattress. Dx: E66.01 Unchanged DME (DME MISCellaneous) See instructions Morbid obesity with BMI of 70 and over, adult Impaired mobility and ADLs Dispense 1 bariatric shower chair, UAD daily to shower. Unchanged DME (Wheel Chair) See instructions Morbid obesity with BMI of 70 and over, adult Dispense 1 large, bariatric wheelchair Unchanged DME (Wheel Chair) See instructions Impaired mobility and ADLs Morbid obesity with BMI of 70 and over, adult Dispense 1 bariatric wheelchair. Unchanged hydroCHLOROthiazide (hydroCHLOROthiazide 25 mg oral tablet) 1 tab(s) by mouth Once a day High blood pressure Unchanged levothyroxine (levothyroxine 50 mcg (0.05 mg) oral tablet) See instructions TAKE 1 TABLET BY MOUTH EVERY DAY Unchanged lidocaine topical (lidocaine 5% topical patch) 1 patch(es) Topical Once a day Left shoulder pain remove patches after 12 hours Unchanged loratadine (loratadine 10 mg oral tablet) 1 tab(s) by mouth Once a day as needed for allergy symptoms Seasonal allergies Unchanged metFORMIN (MetFORMIN (Eqv-Glucophage XR) 500 mg oral tablet, EXTENDED RELEASE) 4 tab(s) by mouth Once a day 2 TABS IN AM AND 2 TABS IN PM Unchanged metoprolol (Metoprolol Succinate ER 100 mg oral TABLET extended release) 1 tab(s) by mouth Once a day Hypertension Unchanged mirabegron (Myrbetriq 25 mg oral tablet, extended release) 25 Milligram by mouth Once a day Unchanged Misc Medication (VITAMIN D3 125 MCG (5,000 UNIT) CAPSULE) Unchanged montelukast (montelukast 10 mg oral tablet) 1 tab(s) by mouth Once a day Duration: 90 Days Unchanged naltrexone (naltrexone 50 mg oral tablet) 0.5ab(s) by mouth Every day Unchanged norethindrone (Aygestin 5 mg oral tablet) 1 tab(s) by mouth Once a day Well woman exam with routine gynecological exam Menorrhagia Take the first 14 days of each month. Unchanged norethindrone (norethindrone 5 mg oral tablet) See instructions Take one tablet daily for 14 days each month Unchanged nystatin topical (nystatin 100,000 units/ g topical powder) 1 application Topical Two (2) times a day Unchanged pravastatin (pravastatin 40 mg oral tablet) 1 tab(s) by mouth Once a day Unchanged valsartan (valsartan 160 mg oral tablet) 1 tab(s) by mouth Once a day (in the evening) High blood pressure Please take this list to your next doctor s visit. Bring all medications you take, including over the counter medications, herbals and other supplements with you to your doctor s visit. Patients and families are reminded to discard old lists and to update any records with all medication providers or retail pharmacies. Education Materials Knee Pain with Uncertain Cause There are several common causes for knee pain. These can include: A sprain of the ligaments that support the joint An injury to the cartilage lining of the joint Arthritis from ijpt-wlc-gbof or inflammation There are other causes as well. There may also be swelling, reduced movement of the knee joint, and pain with walking. A definite diagnosis will still need to be made. If your symptoms don't improve, further follow-up and testing may be needed. Home care Stay off the injured leg as much as possible until pain improves. Apply an ice pack over the injured area for 15 to 20 minutes every 3 to 6 hours. You should do this for the first 24 to 48 hours. You can make an ice pack by filling a plastic bag that seals at the top with ice cubes and then wrapping it with a thin towel. Continue to use ice packs for relief of pain and swelling as needed. As the ice melts, be careful not to get your wrap, splint, or cast wet. After 48 hours, apply heat (warm shower or warm bath) for 15 to 20 minutes several times a day, or alternate ice and heat. If you have to wear a nyyy-usi-aezy knee brace, you can open it to apply the ice pack, or heat, directly to the knee. Never put ice directly on the skin. Always wrap the ice in a towel or other type of cloth. You may use nfsc-xai-hfqlvax pain medicine to control pain, unless another pain medicine was prescribed. If you have chronic liver or kidney disease or ever had a stomach ulcer or gastrointestinal bleeding, talk with your healthcare provider before using these medicines. If crutches or a walker have been recommended, don't put weight on the injured leg until you can do so without pain. Check with your healthcare provider before returning to sports or full work duties. If you have a ximk-klp-avkl knee brace, you can remove it to bathe and sleep, unless told otherwise. Follow-up care Follow up with your healthcare provider as advised. This is usually within 1 to 2 weeks. If X-rays were taken, you will be told of any new findings that may affect your care Call 911 Call 911 if you have: Shortness of breath Chest pain When to seek medical advice Call your healthcare provider right away if any of these occur: Toes or foot becomes swollen, cold, blue, numb, or tingly Pain or swelling spreads over the knee or calf Warmth or redness appears over the knee or calf Other joints become painful Rash appears Fever of 100.4 F (38 C) or higher, or as directed by your healthcare provider Carmella [phone] [employer]. [address] [place] [address]. All rights reserved. This information is not intended as a substitute for professional medical care. Always follow your healthcare professional's instructions. Contusion:Lower Extremity You have a CONTUSION of your LOWER extremity (leg, knee, ankle, foot, or toes). This causes local pain, swelling and sometimes bruising. There are no broken bones. This injury may take from a few days to a few weeks to heal. Home Care: 1) Keep your leg elevated to reduce pain and swelling. When sleeping, place a pillow under the injured leg. When sitting, support the injured leg so it is level with your waist. This is very important during the first 48 hours. 2) If CRUTCHES have been advised, do not bear full weight on the injured leg until you can do so without pain. You may return to sports when you are able to hop and run on the injured leg without pain. 3) Apply an ice pack (ice cubes in a plastic bag, wrapped in a towel) over the injured area for 20 minutes every 1-2 hours the first day for pain relief. Continue this 3-4 times a day until the pain and swelling goes away. 4) You may use acetaminophen (Tylenol) or ibuprofen (Motrin, Advil) to control pain, unless another pain medicine was prescribed. [ NOTE : If you have chronic liver or kidney disease or ever had a stomach ulcer or GI bleeding, talk with your doctor before using these medicines.] Follow Up with your doctor or this facility if you are not starting to improve within the next THREE days. [NOTE: If X-rays were taken, they will be reviewed by a radiologist. You will be notified of any new findings that may affect your care.] Get Prompt Medical Attention if any of the following occur: -- Pain or swelling increases -- Toes become cold, blue, numb or tingly -- Redness, warmth or drainage from the skin [phone] [employer]. [address] [place] [address]. All rights reserved. This information is not intended as a substitute for professional medical care. Always follow your healthcare professional's instructions. Additional Information VACCINATE! IT SAVES LIVES! Members of the community who have not yet received the COVID-19 vaccine and would like to receive it can visit one of [facility] vaccine clinics. There are many vaccine clinic locations within the [facility]. For locations and available times, please visit [email or web address].[place].go [email or web address] It is important to note that some COVID mobile vaccine clinics are held outdoors and may be canceled in rainy or stormy conditions. To learn more about pediatric vaccinations (ages 5-11), we invite you to visit the [employer] [facility] webpage. https://[email or web address].org/pag [email or web address]-Myeak-Bdrtmdyiiud-Frequent fr-Ksizd-Ezkctbjww.html To learn more about the COVID-19 vaccine, we invite you to visit the CDC website for a list of frequently asked questions. https://www.cdc.gov/coronavirus/20 19-ncov/vaccines/faq.html [facility] Patient Portal Access Instructions: Stay connected with your healthcare team and access your personal medical information anytime with the [facility] Patient Portal. If you would like a full copy of your medical records please contact the [facility] Medical Records Department Monday through Monday between 8a.m. and 4:30p.m. Please follow the directions below to access the portal: 1.Access the email account you provided upon registration to the hospital.2.Look for an invitation email from [facility].3.Open the email and access the invitation link: Accept Invitation to [facility].Fill in the required melara to create your account. Sign into www.[facility] with your username and password that you created in the above steps to stay up to date. You can then view a summary of results, a summary of your visits, and the ability to download your summaries to your computer or send the information securely to a physician. Remember that your healthcare information is confidential, so carefully consider who you will allow to register on the [facility] Patient Portal for access to your information. You can also access the [facility] Patient Portal on the [employer]. Simply click on Health Records under Health Data and then click on the [employer] logo. HOW TO SAFELY DISPOSE OF PRESCRIPTION MEDICATIONS Please use one of the following methods to safely dispose of your unused medications. 1.Use a drug disposal kit: the drug disposal pouch allows you to safely discard your old and unused drugs. Ask your nurse to give you one when you are discharged.2.Visit a local take-back location: Many local pharmacies and police departments have programs that collect old and unwanted prescription drugs. Call your local pharmacy or go to http://[employer].Angry Citizen/7O6Rk6g to find one close to you.3.Make use of household items: Use cat litter or old coffee grounds to dispose medications if other options are not available. Mix your drugs with these household products, seal them in an airtight container and throw it into the garbage. Call [facility]: [phone] to be sure your drugs can be disposed of in this way. Some medicines may require a different approach.4.Never flush your medications down the toilet. IF YOU HAVE BEEN PRESCRIBED AN OPIOIDS FOR PAIN If you have been prescribed an opioid (such as hydrocodone, oxycodone or morphine), it is critical to understand the possible side effects and risks of opioid pain medications. Even when taken as directed, opioids can have several side effects including: Tolerance, meaning you might need to take more of a medication for the same pain relief. Nausea, vomiting and/or constipation. Sleepiness, dizziness, dry mouth, confusion, depression or itching. Physical dependence, meaning you have withdrawal symptoms when a medication is stopped ? this can develop within a few days. KNOW YOUR RESPONSIBILITIES It is important to know exactly how much and how often to take the opioid pain medications you are prescribed. Never take opioids in higher amounts or more often than prescribed. Do not combine opioids with alcohol or other drugs that cause drowsiness, such as benzodiazepines, also known as benzos, including diazepam and alprazolam, muscle relaxants or sleep aids. Never sell or share prescription opioids. This is illegal. Store opioids in a secure place and out of reach of others (including children, family, friends and visitors). The last page(s) of this document has been signed and retained as a CHART COPY Signatures Patient Education Materials Knee Pain of Uncertain Cause CONTUSION, Lower Extremity Medication Leaflets My discharge plan and instructions have been reviewed and explained to me and I,LAKE LAZO understand my current condition and have read and understand these discharge instructions. I have received a written copy of the plan/instructions. If I have questions, I am aware that I should contact my doctor. Patient/Dry Color Tester Signature: Date/Time: Relationship to Patient: ___ Witness Name/Signature: Date/Time: [facility] 01-26-2023 Note ORIGINAL EXAMINATION: THREE XRAY VIEWS OF THE RIGHT KNEE 01/26/2023 4:53 pm COMPARISON: None. HISTORY: ORDERING SYSTEM PROVIDED HISTORY: Reason for Exam: Pain FINDINGS: Suboptimal exam due to patient body habitus and positioning. No fracture or dislocation. Moderate tricompartmental degenerative change. Loose body in the suprapatellar region. No large joint fluid. Soft tissue calcifications in the leg. Anterior soft tissue edema/swelling. IMPRESSION: Suboptimal exam. No fracture or dislocation within the confines. Interpreted by: Stephon Diaz Preliminary Report By: Stephon Diaz Electronically signed By Stephon Diaz Dictated Date: 01/26/2023 5:02:35 PM Prelim Date: 01/26/2023 5:04:13 PM Sign Date: 01/26/2023 5:04:13 PM Ordering Provider: MICKEY CLINTON [facility] 01-26-2023 Note ORIGINAL EXAMINATION: THREE XRAY VIEWS OF THE RIGHT KNEE 01/26/2023 4:53 pm COMPARISON: None. HISTORY: ORDERING SYSTEM PROVIDED HISTORY: Reason for Exam: Pain FINDINGS: Suboptimal exam due to patient body habitus and positioning. No fracture or dislocation. Moderate tricompartmental degenerative change. Loose body in the suprapatellar region. No large joint fluid. Soft tissue calcifications in the leg. Anterior soft tissue edema/swelling. IMPRESSION: Suboptimal exam. No fracture or dislocation within the confines. Interpreted by: Stephon Diaz Preliminary Report By: Stephon Diaz Electronically signed By Stephon Diaz Dictated Date: 01/26/2023 5:02:35 PM Prelim Date: 01/26/2023 5:04:13 PM Sign Date: 01/26/2023 5:04:13 PM Ordering Provider: MICKEY CLINTON [facility] 01-26-2023 Miscellaneous Notes Spoke with pt She fell today on create on her right knee Pt weighs 454 lbs She was able to get back up by leaning on her left leg She does have pain with bending to straightening and vice versa She also has pain with palpation on her knee cap and behind i Advised hard to assess ov er the phone She would have pain, swelling and brusing with the extent of there weight and concrete She is afraid to go to ED as she is still diving and can ambulate as normal Advised depending on POC, she could be braced and not able to drive t Advised she would need to be evaluated at an ED Pt will discuss with chito since she is the only that can drive everyone documented in this encounter [facility] 01-24-2023 Miscellaneous Notes Notified patient Ariane Guillory The following approved medication requests have been transmitted electronically. Requested Prescriptions Signed Prescriptions Disp Refills mirabegron (MYRBETRIQ) 25 mg Tb24 90 tablet 3 Sig: Take 1 tablet by mouth once daily. Authorizing Provider: DEL VALENCIA APRN.CNP Please place refill for myrbetric in chart [facility] - [address] [place] [id number] - [address] [phone] [address] [place] [id number] Ariane Guillory documented in this encounter [facility] 11-07-2022 Note HNO ID: [id number] Author: Del Valencia APRN.AISHA Service: ? Author Type: Nurse Practitioner Type: Progress Notes Filed: 11/07/2022 9:52 AM Note Text: [facility] UROLOGY [facility] ESTABLISHED PATIENT FOLLOW-UP NOTE PATIENT: Lake Lazo (47 year old) PCP: Maia Camacho MD, ------- --------- SUMMARY: Patient known to Dr. Sherman/Jaskaran Carter APRN, [employer]. Last seen 03/24/22. She is known for kidney lesion (right renal cyst) and UUI. She has previously failed ditropan and is currently on Myrbetriq 25mg daily. Plan to follow-up in 1 year after last appointment. ASSESSMENT: 1. Renal cyst- Right complex - ICD9: 753.10, ICD10: N28.1 (primary diagnosis) 2. Adrenal nodule (HCC)right 15mm - ICD9: 255.8, ICD10: E27.8 3. Urge incontinence - ICD9: 788.31, ICD10: N39.41 PLAN: #1 Patient with hx of right renal cyst. Renal US completjed (10/19/21) demonstrated right lower pole cyst, slightly increased in size compared with prior CT scan. Superior lesion measures about 1.9cm and corresponded to simple cyst and inferior lesion which measures about 2.8cm. Repeat US (10/27) demonstrated 2.4 cm simple right renal cyst is minimally increased in size. Complicated cyst at the inferior pole the right kidney is relatively stable in size at 2.5 cm, with an apparent thin hairline septation. UA negative today. Recommend follow-up in 1 year. #2 Hx of 15mm right benign adrenal nodule. #3 Currently on myrbetriq 25mg daily. Feels like this is working well. Currently uses incontinence supplies from [employer]. Uses disposable pads/gloves. Does not need any refills at this time. She uses a bariatric bedside commode as needed. FOLLOW UP: Return in about 1 year (around 11/08/2023) for 1 year with renal us with jaskaran. ------- --------- CHIEF COMPLAINT: Patient presents with: Follow Up: Kidney issue HISTORY OF PRESENT ILLNESS: Prior notes were reviewed. Ms. Lazo is a 47 year old female with past medical history of asthma, depression, hypertension, hyperlipidemia, hypothyroidism, and hx of PCOS. She presents for 1 year follow-up renal US for monitoring of right complex renal cyst. The patient reports doing well. Denies any gross hematuria. Denies any fever, chills, weakness, night sweats, nausea, vomiting, or pain. She currently is using incontinence supplies from [employer] and denies any need for refills. She uses a bariatric bedside commode as needed. REVIEW OF SYSTEMS GENERAL:Denies unintentional weight loss, malaise or fevers. NEUROLOGIC: pt is alert and oriented GASTROINTESTINAL: No nausea, vomiting, or diarrhea GENITOURINARY: No history of dysuria, frequency or incontinence MUSCULOSKELETAL: Negative for joint pain or swelling, back pain or muscle pain SKIN: Negative for lesions, rash, and itching.@ ALLERGIES: ALLERGIES Allergen Reactions Seasonal Allergies Itching Cats, dogs, dust Trulicity [Dulaglut* GI Upset MEDICATIONS: doxycycline hyclate (VIBRAMYCIN) 100 mg capsule mirabegron (MYRBETRIQ) 25 mg Tb24 Take by mouth once daily. naltrexone (TREXAN) 50 mg tablet Take 50 mg by mouth once daily. Taking 1/2 tablet daily pravastatin (PRAVACHOL) 40 mg tablet Take 40 mg by mouth once daily. lidocain-me.anqtddd-nfjh-mshqs 0.5-20-0.035-5 % ptmd Apply to affected area. buPROPion (WELLBUTRIN) 75 mg tablet valsartan (DIOVAN) 160 mg tablet loratadine (CLARITIN) 10 mg tablet diclofenac (VOLTAREN) 1 % topical gel cyclobenzaprine (FLEXERIL) 10 mg tablet cholecalciferol, vitamin D3, (VITAMIN D3 ORAL) Take by mouth. cyanocobalamin, vitamin B-12, (VITAMIN B12 ORAL) Take by mouth. diclofenac, EC, (VOLTAREN) 75 mg EC tablet twice daily. montelukast (SINGULAIR) 10 mg tablet Take 10 mg by mouth daily at bedtime. albuterol HFA (PROVENTIL HFA, VENTOLIN HFA) 90 mcg/actuation inhaler Inhale 2 Puffs as instructed. metoprolol succinate XL, long acting, 50 mg 24 hr tablet Take 100 mg by mouth once daily. levothyroxine (SYNTHROID) 25 mcg tablet Take 50 mcg by mouth daily before breakfast. METFORMIN HCL (GLUCOPHAGE ORAL) Take by mouth. NORETHINDRONE (JENNIFER ORAL) Take by mouth. mupirocin (BACTROBAN) 2 % ointment Apply to affected area three times daily. (Patient not taking: Reported on 11/07/2022) fluticasone (FLONASE) 50 mcg/actuation nasal spray Use 1 [place] in each nostril daily at bedtime. BEFORE LYING DOWN FOR BED dpgtmvjlzyjdv-objyotggevuh-dfknauj (PHENERGAN VC-CODEINE) 6.25-5-10 mg/5 mL syrp Take 5 mL by mouth every 6 hours as needed (cough). (Patient not taking: Reported on 06/01/2018 ) FLUoxetine (PROZAC) 20 mg capsule Take 20 mg by mouth once daily. BID (Patient not taking: Reported on 04/19/2021 ) (more content not included)... [facility] 11-07-2022 History of Present illness Narrative Images from the original note were not included. [facility] ESTABLISHED PATIENT FOLLOW-UP NOTE PATIENT: Lake Lazo (47 year old) PCP: Maia Camacoh MD, SUMMARY: Patient known to Dr. Sherman/Jaskaran Carter APRN, [employer]ADER. Last seen 03/24/22. She is known for kidney lesion (right renal cyst) and UUI. She has previously failed ditropan and is currently on Myrbetriq 25mg daily. Plan to follow-up in 1 year after last appointment. ASSESSMENT: 1. Renal cyst- Right complex - ICD9: 753.10, ICD10: N28.1 (primary diagnosis) 2. Adrenal nodule (HCC)right 15mm - ICD9: 255.8, ICD10: E27.8 3. Urge incontinence - ICD9: 788.31, ICD10: N39.41 PLAN: #1 Patient with hx of right renal cyst. Renal US completjed (10/19/21) demonstrated right lower pole cyst, slightly increased in size compared with prior CT scan. Superior lesion measures about 1.9cm and corresponded to simple cyst and inferior lesion which measures about 2.8cm. Repeat US (10/27) demonstrated 2.4 cm simple right renal cyst is minimally increased in size. Complicated cyst at the inferior pole the right kidney is relatively stable in size at 2.5 cm, with an apparent thin hairline septation. UA negative today. Recommend follow-up in 1 year. #2 Hx of 15mm right benign adrenal nodule. #3 Currently on myrbetriq 25mg daily. Feels like this is working well. Currently uses incontinence supplies from [employer]. Uses disposable pads/gloves. Does not need any refills at this time. She uses a bariatric bedside commode as needed. FOLLOW UP: Return in about 1 year (around 11/08/2023) for 1 year with renal us with jaskaran. CHIEF COMPLAINT: Patient presents with: Follow Up: Kidney issue HISTORY OF PRESENT ILLNESS: Prior notes were reviewed. Ms. Lazo is a 47 year old female with past medical history of asthma, depression, hypertension, hyperlipidemia, hypothyroidism, and hx of PCOS. She presents for 1 year follow-up renal US for monitoring of right complex renal cyst. The patient reports doing well. Denies any gross hematuria. Denies any fever, chills, weakness, night sweats, nausea, vomiting, or pain. She currently is using incontinence supplies from [employer] and denies any need for refills. She uses a bariatric bedside commode as needed. REVIEW OF SYSTEMS GENERAL:Denies unintentional weight loss, malaise or fevers. NEUROLOGIC: pt is alert and oriented GASTROINTESTINAL: No nausea, vomiting, or diarrhea GENITOURINARY: No history of dysuria, frequency or incontinence MUSCULOSKELETAL: Negative for joint pain or swelling, back pain or muscle pain SKIN: Negative for lesions, rash, and itching.@ ALLERGIES: ALLERGIES Allergen Reactions Seasonal Allergies Itching Cats, dogs, dust Trulicity [Dulaglut* GI Upset MEDICATIONS: doxycycline hyclate (VIBRAMYCIN) 100 mg capsule mirabegron (MYRBETRIQ) 25 mg Tb24 Take by mouth once daily. naltrexone (TREXAN) 50 mg tablet Take 50 mg by mouth once daily. Taking 1/2 tablet daily pravastatin (PRAVACHOL) 40 mg tablet Take 40 mg by mouth once daily. lidocain-me.vdpvmgr-ejgi-hxhka 0.5-20-0.035-5 % ptmd Apply to affected area. buPROPion (WELLBUTRIN) 75 mg tablet valsartan (DIOVAN) 160 mg tablet loratadine (CLARITIN) 10 mg tablet diclofenac (VOLTAREN) 1 % topical gel cyclobenzaprine (FLEXERIL) 10 mg tablet cholecalciferol, vitamin D3, (VITAMIN D3 ORAL) Take by mouth. cyanocobalamin, vitamin B-12, (VITAMIN B12 ORAL) Take by mouth. diclofenac, EC, (VOLTAREN) 75 mg EC tablet twice daily. montelukast (SINGULAIR) 10 mg tablet Take 10 mg by mouth daily at bedtime. albuterol HFA (PROVENTIL HFA, VENTOLIN HFA) 90 mcg/actuation inhaler Inhale 2 Puffs as instructed. metoprolol succinate XL, long acting, 50 mg 24 hr tablet Take 100 mg by mouth once daily. levothyroxine (SYNTHROID) 25 mcg tablet Take 50 mcg by mouth daily before breakfast. METFORMIN HCL (GLUCOPHAGE ORAL) Take by mouth. NORETHINDRONE (JENNIFER ORAL) Take by mouth. mupirocin (BACTROBAN) 2 % ointment Apply to affected area three times daily. (Patient not taking: Reported on 11/07/2022) fluticasone (FLONASE) 50 mcg/actuation nasal spray Use 1 [place] in each nostril daily at bedtime. BEFORE LYING DOWN FOR BED gmhinkcrcvokb-ksuwbfkcnfwj-vmmbczt (PHENERGAN VC-CODEINE) 6.25-5-10 mg/5 mL syrp Take 5 mL by mouth every 6 hours as needed (cough). (Patient not taking: Reported on 06/01/2018 ) FLUoxetine (PROZAC) 20 mg capsule Take 20 mg by mouth once daily. BID (Patient not taking: Reported on 04/19/2021 ) atorvastatin (LIPITOR) 10 mg tablet Take 10 mg by mouth once daily. PAST HISTORY: PAST MEDICAL HISTORY Diagnosis Date Asthma Depression Hyperlipidemia Hypertension Hypothyroid Polycystic ovarian disease PAST SURGICAL HISTORY Procedure Laterality Date REMOVE TONSILS AND ADENOIDS; AGE 12 OVER FAMILY HISTORY Problem Relation Age of Onset Diabetes Mother Arthritis Mother Asthma Mother Diabetes Father Hypertension Father Hyperlipidemia Father Heart Maternal Grandmother Thyroid Maternal Grandmother Cancer Maternal Grandfather Social History Tobacco Use Smoking status: Former Smokeless tobacco: Never Vaping Use Vaping Use: Never used Substance Use Topics Alcohol use: Yes Comment: soc. Drug use: No PHYSICAL EXAMINATION: Pulse 63 Ht 165.1 cm (5' 5 ) Wt (!) 218.2 kg (481 lb) LMP 11/09/2015 SpO2 97% BMI 80.04 kg/m Constitutional: In no acute distress. Well appearing. Respiratory: Normal respiratory effort without use of accessory muscles. Musculoskeletal: No LE edema or tenderness;wheelchair Cardiovascular: Regular rate Gastrointestinal: Soft, protuberant, large pannus overhanging DATA: Imaging: Renal US (10/26/21) Right lower pole cyst, the more superior of which measures about 1.9cm and corresponded to simple cyst on a prior CT scan. The more inferior lesion measures about 2.8cm and corresponds to the high density cyst on the prior CT scan, minimally increased in size. Renal US (10/14/22) 2.4 cm simple right renal cyst is minimally increased in size. Complicated cyst at the inferior pole the right kidney is relatively stable in size at 2.5 cm, with an apparent thin hairline septation. Unremarkable left kidney. Clinic: URINALYSIS: Urine Dip Result: Leukocytes: negative Nitrates: Negative Urobilinogen: 0.2 Protein: negative pH: 6.0 Blood: negative Specific [place]: >1.030 Ketones: negative Bilirubin: negative Glucose: negative I have reviewed the problem list, family history, and social history documented by my ancillary staff. Del Valencia APRN.AISHA documented in this encounter [facility] 10-21-2022 Miscellaneous Notes Called [facility] and spoke to them and they are supposed to fax a form over for AISHA to fill out. Adelaida Mendenhall MA Patient called in again and still needs supplies for her incontinence. She needs the prescription sent to [facility]. [phone] Patient called in and needs a new order for her disposable chucks [facility] She will be in the office 10/20 documented in this encounter [facility] 07-18-2022 Note HNO ID: [id number] Author: Joel Ferguson MD Service: ? Author Type: Physician Type: Progress Notes Filed: 07/18/2022 10:04 AM Note Text: Joel Ferguson MD Department of Orthopaedics Orthopaedics [address] [facility] [address] Dept: [phone] Dept July 18, 2022 CHIEF COMPLAINT: New and Pain of the Left Shoulder and Last seen by Dr. Gongora 05/24/21 Impingement Syndrome (Left shoulder) HPI Patient states she is having left shoulder when she lifts her arm upward. She has difficulty doing her hair and getting dressed. No specific injury. Had x-rays done on 06/22/22 at [facility] and hand carried on a CD today. Patient is right hand dominant. Patient is disabled. with patient today. Using Lidocaine for the pain and does help. Patient states she has tried 4 weeks of PT at [facility] and did not notice any difference. AMB ROOMING INTAKE FLOWSHEET DATA Risk Screening Do you have concerns about personal safety or safety in the home?: No Pain Pain Level: (0-10) Pain Location: Shoulder-Left Description: Aching Duration Amount of Time: 1 Duration Units: Years Frequency: Intermittent (Occurs with movement) Intervention/Comfort measure: Medication ASSESSMENT: M19.012 Primary osteoarthritis of left shoulder (primary encounter diagnosis) M25.512, G89.29 Chronic left shoulder pain PLAN: Patient has quite significant arthritis in the left shoulder. She is not a candidate for surgery at this time secondary to her weight and BMI. She also has a bit of phobia for needles and we discussed cortisone injection to potentially help. She does state that her lidocaine patches helped her significant amount and hopefully those can be continued with her primary care insurance FOLLOW UP INSTRUCTIONS: After she follows with bariatrics, and her follow-up would be with a shoulder provider and adult reconstruction Ms. Lake Lazo was advised as to contrast therapies and/or to take analgesics/anti-inflammatories as needed and all contraindications were reviewed. OBJECTIVE: Ms. Lake Lazo is a pleasant 46 year old in no apparent distress. Gen:LMP 11/09/2015 nl development, severely obese , no deformities ENT: Normocephalic, normal hearing, moist mucosa CV: Pulses:Radial= 2+ and symmetric, capillary refill < 2 secs, no peripheral edema/varicosities Skin: no rash, bruising or lesions. Good turgor. Psych: cooperative and appropriate, alert and oriented x 3, good mood and affect. Musculoskeletal: She has active motion of about 130 degrees, passive about 150 degrees. Limited external rotation of only 25 degrees or so. IMAGIN views of the left shoulder from an outside facility show significant joint space narrowing and large osteophyte formation of the humeral neck. Supporting Subjective Information Below: Past Medical History: PAST MEDICAL HISTORY Diagnosis Date Asthma Depression Hyperlipidemia Hypertension Hypothyroid Polycystic ovarian disease Past Surgical History: PAST SURGICAL HISTORY Procedure Laterality Date REMOVE TONSILS AND ADENOIDS; AGE 12 OVER Family History: FAMILY HISTORY Problem Relation Age of Onset Diabetes Mother Arthritis Mother Asthma Mother Diabetes Father Hypertension Father Hyperlipidemia Father Heart Maternal Grandmother Thyroid Maternal Grandmother Cancer Maternal Grandfather Social History: Social History Tobacco Use Smoking status: Former Smokeless tobacco: Never Vaping Use Vaping Use: Never used Substance Use Topics Alcohol use: Yes Comment: soc. Drug use: No Medications: Current Outpatient Medications Medication Sig mupirocin (BACTROBAN) 2 % ointment Apply to affected area three times daily. naltrexone (TREXAN) 50 mg tablet Take 50 mg by mouth once daily. Taking 1/2 tablet daily pravastatin (PRAVACHOL) 40 mg tablet Take 40 mg by mouth once daily. lidocain-me.awiftvo-lqcj-cmlth 0.5-20-0.035-5 % ptmd Apply to affected area. buPROPion (WELLBUTRIN) 75 mg tablet valsartan (DIOVAN) 160 mg tablet loratadine (CLARITIN) 10 mg tablet diclofenac (VOLTAREN) 1 % topical gel cyclobenzaprine (FLEXERIL) 10 mg tablet cholecalciferol, vitamin D3, (VITAMIN D3 ORAL) Take by mouth. cyanocobalamin, vitamin B-12, (VITAMIN B12 ORAL) Take by mouth. diclofenac, EC, (VOLTAREN) 75 mg EC tablet twice daily. montelukast (SINGULAIR) 10 mg tablet Take 10 mg by mouth daily at bedtime. albuterol HFA (PROVENTIL HFA, VENTOLIN HFA) 90 mcg/actuation inhaler Inhale 2 Puffs as instructed. metoprolol succinate XL, long acting, 50 mg 24 hr tablet Take 100 mg by mouth once daily. levothyroxine (SYNTHROID) 25 mcg tablet Take 50 mcg by mouth daily before breakfast. METFORMIN HCL (GLUCOPHAGE ORAL) Take by mouth. NORETHINDRONE (JENNIFER ORAL) Take by mouth. mirabegron (MYRBETRIQ) 25 mg Tb24 Take by mouth once daily. fluticasone (FLONASE) 50 mcg/actuation nasal spr (more content not included)... [facility] History of Present illness Narrative Joel Ferguson MD Department of Orthopaedics Orthopaedics [address] [facility] [address] Dept: [phone] Dept July 18, 2022 CHIEF COMPLAINT: New and Pain of the Left Shoulder and Last seen by Dr. Gongora 05/24/21 Impingement Syndrome (Left shoulder) HPI Patient states she is having left shoulder when she lifts her arm upward. She has difficulty doing her hair and getting dressed. No specific injury. Had x-rays done on 06/22/22 at [facility] and hand carried on a CD today. Patient is right hand dominant. Patient is disabled. with patient today. Using Lidocaine for the pain and does help. Patient states she has tried 4 weeks of PT at [facility] and did not notice any difference. AMB ROOMING INTAKE FLOWSHEET DATA Risk Screening Do you have concerns about personal safety or safety in the home?: No Pain Pain Level: (0-10) Pain Location: Shoulder-Left Description: Aching Duration Amount of Time: 1 Duration Units: Years Frequency: Intermittent (Occurs with movement) Intervention/Comfort measure: Medication ASSESSMENT: M19.012 Primary osteoarthritis of left shoulder (primary encounter diagnosis) M25.512, G89.29 Chronic left shoulder pain PLAN: Patient has quite significant arthritis in the left shoulder. She is not a candidate for surgery at this time secondary to her weight and BMI. She also has a bit of phobia for needles and we discussed cortisone injection to potentially help. She does state that her lidocaine patches helped her significant amount and hopefully those can be continued with her primary care insurance FOLLOW UP INSTRUCTIONS: After she follows with bariatrics, and her follow-up would be with a shoulder provider and adult reconstruction Ms. Lake Lazo was advised as to contrast therapies and/or to take analgesics/anti-inflammatories as needed and all contraindications were reviewed. OBJECTIVE: Ms. Lake Lazo is a pleasant 46 year old in no apparent distress. Gen:LMP 11/09/2015 nl development, severely obese , no deformities ENT: Normocephalic, normal hearing, moist mucosa CV: Pulses:Radial= 2+ and symmetric, capillary refill < 2 secs, no peripheral edema/varicosities Skin: no rash, bruising or lesions. Good turgor. Psych: cooperative and appropriate, alert and oriented x 3, good mood and affect. Musculoskeletal: She has active motion of about 130 degrees, passive about 150 degrees. Limited external rotation of only 25 degrees or so. IMAGIN views of the left shoulder from an outside facility show significant joint space narrowing and large osteophyte formation of the humeral neck. Supporting Subjective Information Below: Past Medical History: PAST MEDICAL HISTORY Diagnosis Date Asthma Depression Hyperlipidemia Hypertension Hypothyroid Polycystic ovarian disease Past Surgical History: PAST SURGICAL HISTORY Procedure Laterality Date REMOVE TONSILS AND ADENOIDS; AGE 12 OVER Family History: FAMILY HISTORY Problem Relation Age of Onset Diabetes Mother Arthritis Mother Asthma Mother Diabetes Father Hypertension Father Hyperlipidemia Father Heart Maternal Grandmother Thyroid Maternal Grandmother Cancer Maternal Grandfather Social History: Social History Tobacco Use Smoking status: Former Smokeless tobacco: Never Vaping Use Vaping Use: Never used Substance Use Topics Alcohol use: Yes Comment: soc. Drug use: No Medications: Current Outpatient Medications Medication Sig mupirocin (BACTROBAN) 2 % ointment Apply to affected area three times daily. naltrexone (TREXAN) 50 mg tablet Take 50 mg by mouth once daily. Taking 1/2 tablet daily pravastatin (PRAVACHOL) 40 mg tablet Take 40 mg by mouth once daily. lidocain-me.vxcqoiw-urlv-vhtoy 0.5-20-0.035-5 % ptmd Apply to affected area. buPROPion (WELLBUTRIN) 75 mg tablet valsartan (DIOVAN) 160 mg tablet loratadine (CLARITIN) 10 mg tablet diclofenac (VOLTAREN) 1 % topical gel cyclobenzaprine (FLEXERIL) 10 mg tablet cholecalciferol, vitamin D3, (VITAMIN D3 ORAL) Take by mouth. cyanocobalamin, vitamin B-12, (VITAMIN B12 ORAL) Take by mouth. diclofenac, EC, (VOLTAREN) 75 mg EC tablet twice daily. montelukast (SINGULAIR) 10 mg tablet Take 10 mg by mouth daily at bedtime. albuterol HFA (PROVENTIL HFA, VENTOLIN HFA) 90 mcg/actuation inhaler Inhale 2 Puffs as instructed. metoprolol succinate XL, long acting, 50 mg 24 hr tablet Take 100 mg by mouth once daily. levothyroxine (SYNTHROID) 25 mcg tablet Take 50 mcg by mouth daily before breakfast. METFORMIN HCL (GLUCOPHAGE ORAL) Take by mouth. NORETHINDRONE (JENNIFER ORAL) Take by mouth. mirabegron (MYRBETRIQ) 25 mg Tb24 Take by mouth once daily. fluticasone (FLONASE) 50 mcg/actuation nasal spray Use 1 [place] in each nostril daily at bedtime. BEFORE LYING DOWN FOR BED ghieystlswojn-kinadgjsohqs-wlqmtcg (PHENERGAN VC-CODEINE) 6.25-5-10 mg/5 mL syrp Take 5 mL by mouth every 6 hours as needed (cough). (Patient not taking: Reported on 06/01/2018 ) FLUoxetine (PROZAC) 20 mg capsule Take 20 mg by mouth once daily. BID (Patient not taking: Reported on 04/19/2021 ) atorvastatin (LIPITOR) 10 mg tablet Take 10 mg by mouth once daily. No current facility-administered medications for this visit. Allergies: Seasonal Allergies and Trulicity [Dulaglutide] ROS: General (negative for fatigue, malaise, weight loss/gain) HEENT (negative for headache, earache, recent vision changes, sinus pain, sore throat) Respiratory (no recent shortness of breath, hemoptysis) CV (negative for chest tightness, palpitations) Musculoskeletal (see HPI) Psych (no depression, anxiety) Joel Ferguson MD documented in this encounter [facility] 06-22-2022 Hospital Discharge instructions Patient Education 06/22/2022 18:43:47 What is Arthritis? What Is Arthritis? Arthritis is a disease that affects the joints. Joints are the parts where bones meet and move. It can affect any joint in your body. There are many types of arthritis. They include: Osteoarthritis Rheumatoid arthritis Gout Lupus If your symptoms are mild, medicines may be enough to ease pain and swelling. For more severe arthritis, you may need surgery. This can improve the condition of the joint. Or it can replace part or all of the joint. What causes arthritis? Cartilage is a smooth substance that protects the ends of your bones and provides cushioning. When you have arthritis, this cartilage breaks down and can no longer protect your bones. This can happen from an autoimmune disease. Or it can happen from wear and tear, infections, or trauma. The bones rub against each other, causing pain and swelling. Over time, small pieces of rough or splintered bone (bone spurs) may develop. The joint's range of motion can become limited. Symptoms Some of the more common symptoms of arthritis include: Joint pain and stiffness. These symptoms get worse with long periods of rest. They may also get worse from using a joint too long or too hard. Joints that have lost normal shape and motion. They may look swollen and be hard to move. Sore, inflamed joints. They may look red and feel warm. Grinding or popping noise. This happens with joint movement. Fatigue. You may feel tired all the time. Reducing symptoms You can help ease symptoms in these ways: Losing weight Exercising Strengthening muscles around the joint to reduce the strain on the joint Using hot and cold packs on your joints Using ualj-wav-aihypnn and prescription medicines Talk with your healthcare provider about the best treatments for your condition. [id number] [employer]. [address] [place] [address], [place] [address]. All rights reserved. This information is not intended as a substitute for professional medical care. Always follow your healthcare professional's instructions. 06/22/2022 18:18:22 Hypertension, Established Established High Blood Pressure High blood pressure (hypertension) is a chronic disease. Often, healthcare providers don t know what causes it. But it can be caused by certain health conditions and medicines. If you have high blood pressure, you may not have any symptoms. If you do have symptoms, they may include headache, dizziness, changes in your vision, chest pain, and shortness of breath. But even without symptoms, high blood pressure that s not treated raises your risk for heart attack, heart failure, and stroke. High blood pressure is a serious health risk and shouldn t be ignored. Blood pressure measurements are given as 2 numbers. Systolic blood pressure is the upper number. This is the pressure when the heart contracts. Diastolic blood pressure is the lower number. This is the pressure when the heart relaxes between beats. You will see your blood pressure readings written together. For example, a person with a systolic pressure of 118 and a diastolic pressure of 78 will have 118/78 written in the medical record. Blood pressure is categorized as normal, elevated, or stage 1 or stage 2 high blood pressure: Normal blood pressure is systolic of less than 120 and diastolic of less than 80 (120/80) Elevated blood pressure is systolic of 120 to 129 and diastolic less than 80 Stage 1 high blood pressure is systolic is 130 to 139 or diastolic between 80 to 89 Stage 2 high blood pressure is when systolic is 140 or higher or the diastolic is 90 or higher Home care If you have high blood pressure, follow these home care guidelines to help lower your blood pressure. If you are taking medicines for high blood pressure, these methods may reduce or end your need for medicines in the future. Start a weight-loss program if you are overweight. Cut back on how much salt you get in your diet. Here s how to do this: oDon t eat foods that have a lot of salt. These include olives, pickles, smoked meats, and salted potato chips. oDon t add salt to your food at the table. oUse only small amounts of salt when cooking. Start an exercise program. Talk with your healthcare provider about the type of exercise program that would be best for you. It doesn't have to be hard. Even brisk walking for 20 minutes 3 times a week is a good form of exercise. Don t take medicines that stimulate the heart. This includes many hcez-jie-fwwnsvq cold and sinus decongestant pills and sprays, as well as diet pills. Check the warnings about high blood pressure on the label. Before buying any qxjc-pia-umbkblm medicines or supplements, always ask the pharmacist about the product's potential interaction with your high blood pressure and your high blood pressure medicines. Stimulants such as amphetamine or cocaine could be deadly for someone with high blood pressure. Never take these. Limit how much caffeine you get in your diet. Switch to caffeine-free products. Stop smoking. If you are a long-time smoker, this can be hard. Talk to your healthcare provider about medicines and nicotine replacement options to help you. Also, enroll in a stop-smoking program to make it more likely that you will quit for good. Learn how to handle stress. This is an important part of any program to lower blood pressure. Learn about relaxation methods like meditation, yoga, or biofeedback. If your provider prescribed medicines, take them exactly as directed. Missing doses may cause your blood pressure get out of control. If you miss a dose or doses, check with your healthcare provider or pharmacist about what to do. Consider buying an automatic blood pressure machine to check your blood pressure at home. Ask your provider for a recommendation. You can get one of these at most pharmacies. The [employer] recommends the following guidelines for home blood pressure monitoring: Don't smoke or drink coffee for 30 minutes before taking your blood pressure. Go to the bathroom before the test. Relax for 5 minutes before taking the measurement. Sit with your back supported (don't sit on a couch or soft chair); keep your feet on the floor uncrossed. Place your arm on a solid flat surface (like a table) with the upper part of the arm at heart level. Place the middle of the cuff directly above the bend of the elbow. Check the monitor's instruction manual for an illustration. Take multiple readings. When you measure, take 2 to 3 readings one minute apart and record all of the results. Take your blood pressure at the same time every day, or as your healthcare provider recommends. Record the date, time, and blood pressure reading. Take the record with you to your next medical appointment. If your blood pressure monitor has a built-in memory, simply take the monitor with you to your next appointment. Call your provider if you have several high readings. Don't be frightened by a single high blood pressure reading, but if you get several high readings, check in with your healthcare provider. Note: When blood pressure reaches a systolic (top number) of 180 or higher OR diastolic (bottom number) of 110 or higher, seek emergency medical treatment. Follow-up care You will need to see your healthcare provider regularly. This is to check your blood pressure and to make changes to your medicines. Make a follow-up appointment as directed. Bring the record of your home blood pressure readings to the appointment. When to seek medical advice Call your healthcare provider right away if any of these occur: Blood pressure reaches a systolic (upper number) of 180 or higher OR a diastolic (bottom number) of 110 or higher Chest pain or shortness of breath Severe headache Throbbing or rushing sound in the ears Nosebleed Sudden severe pain in your belly (abdomen) Extreme drowsiness, confusion, or fainting Dizziness or spinning sensation (vertigo) Weakness of an arm or leg or one side of the face You have problems speaking or seeing [employer]. [address] [place] [address]. All rights reserved. This information is not intended as a substitute for professional medical care. Always follow your healthcare professional's instructions. 06/22/2022 18:17:59 Arthralgia Arthralgia Arthralgia is the term for pain in or around the joint. It is a symptom, not a disease. This pain may involve one or more joints. In some cases, the pain moves from joint to joint. There are many causes for joint pain. These include: Injury Osteoarthritis (wearing out of the joint surface) Gout (inflammation of the joint due to crystals in the joint fluid) Infection inside the joint Bursitis (inflammation of the fluid-filled sacs around the joint) Autoimmune disorders such as rheumatoid arthritis or lupus Tendonitis (inflammation of chords that attach muscle to bone) Home care Rest the involved joint(s) until your symptoms improve. You may be prescribed pain medicine. If none is prescribed, you may use acetaminophen or ibuprofen to control pain and inflammation. Follow-up care Follow up with your healthcare provider or as advised. When to seek medical advice Contact your healthcare provider right away if any of the following occurs: Pain, swelling, or redness of joint increases Pain worsens or recurs after a period of improvement Pain moves to other joints You cannot bear weight on the affected joint You cannot move the affected joint Joint appears deformed New rash appears Fever of 100.4 F (38 C) or higher, or as directed by your healthcare provider [employer]. [address] [place] [id number]. All rights reserved. This information is not intended as a substitute for professional medical care. Always follow your healthcare professional's instructions. Follow Up Care 06/22/2022 17:54:05 With:your ortho or Dr. Andres Address:Unknown When:2-4 days With:GAIL ANDRES Address: [address] [place] [address] [address] [place] [address] Business (1) When:2-4 days Comments:Schedule appointment as soon as possiblerange of motion daily. May use tylenol and lidoderm.Follow up for recheck and possible MRI With:LAYLA BLANCO Address: [address] [place] [address] [phone] Business (1) When:2-4 days Comments:Schedule appointment as soon as possiblefollow up for blood pressure [facility] 06-22-2022 Note Discharge Instructions Thank you for allowing [facility] to assist you with your healthcare needs. The following is important discharge information regarding your hospital visit. Diagnosis from Today's Visit Arthralgia Hypertension Degenerative joint disease Shoulder pain-swelling What to Do Next Instructions from Your Care Team No qualifying data available. Post Acute Orders No qualifying data available. You Need to Schedule the Following Appointments Follow Up with your ortho or Dr. Andres When Within 2-4 days Follow Up with GAIL ANDRES When Within 2-4 days Why: Schedule appointment as soon as possible range of motion daily. May use tylenol and lidoderm. Follow up for recheck and possible MRI Where: [address] [place] [phone] Business (1) Follow Up with LAYLA BLANCO When Within 2-4 days Why: Schedule appointment as soon as possible follow up for blood pressure Where: [address] [place] [address] [phone] Business (1) Allergies Trulicity Pen (nausea) Medications Please ask your primary doctor or pharmacist before taking any other medication not listed, including over the counter drugs, herbal medications, vitamins and or supplements as they may interact with your home medications. What How Much When Why Instructions Last Dose New lidocaine topical (Lidoderm 5% topical patch) 1 patch(es) Topical Once a day Arthralgia Hypertension remove patches after 12 hours Apply to left shoulder once daily prn pain Printed Prescription New predniSONE (predniSONE 10 mg oral tablet) 3 by mouth Two (2) times a day Arthralgia Hypertension 6 po 1st dose then 3 po q12 Printed Prescription Unchanged albuterol (albuterol MDI (90 mcg/ inh) CFC free inhalation aerosol) 2 puff(s) by inhalation Every 4 hours as needed for as needed for wheezing Reactive airway disease with wheezing Unchanged buPROPion (buPROPion 75 mg oral tablet) 1 tab(s) by mouth Every day Unchanged cholecalciferol (Vitamin D3 125 mcg (5000 intl units) oral capsule) 1 cap by mouth Once a day Vitamin D deficiency Unchanged cyanocobalamin (B-12 1000 mcg oral tablet, extended release) See instructions TAKE 1 TABLET BY MOUTH DAILY Unchanged cyclobenzaprine (cyclobenzaprine 10 mg oral tablet) 1 tab(s) by mouth Three (3) times a day as needed for Spasm Unchanged dextromethorphan-promethazine (dextromethorphan-promethazine 15 mg-6.25 mg/ 5 mL oral syrup) 5 Milliliter by mouth Every 6 hours as needed for for cough Unchanged diclofenac (diclofenac sodium 75 mg oral delayed release tablet) 1 tab(s) by mouth Two (2) times a day Unchanged diclofenac topical (diclofenac 1% topical gel) 2 gram(s) Topical Four (4) times a day Left shoulder pain Unchanged DME (DME MISCellaneous) See instructions Morbid obesity with BMI of 70 and over, adult Dispense 1 long-handled rectum wiper, UAD Unchanged DME (DME MISCellaneous) See instructions Urge urinary incontinence Morbid obesity with BMI of 70 and over, adult Dispense 1 bariatric bedside commode Unchanged DME (DME MISCellaneous) See instructions Morbid obesity with BMI of 70 and over, adult Needs a wiping stick or device to help with personal hygiene due to body habitus Unchanged DME (DME MISCellaneous) See instructions Morbid obesity with BMI of 70 and over, adult Pain of lumbosacral spine Dispense a 26 inch wheelchair seat cushion Unchanged DME (Wheel Chair) See instructions Morbid obesity with BMI of 70 and over, adult Dispense 1 large, bariatric wheelchair Unchanged levothyroxine (levothyroxine 50 mcg (0.05 mg) oral tablet) See instructions TAKE 1 TABLET BY MOUTH EVERY DAY Unchanged loratadine (loratadine 10 mg oral tablet) 1 tab(s) by mouth Once a day as needed for allergy symptoms Seasonal allergies Unchanged metFORMIN (MetFORMIN (Eqv-Glucophage XR) 500 mg oral tablet, EXTENDED RELEASE) 4 tab(s) by mouth Once a day 2 TABS IN AM AND 2 TABS IN PM Unchanged metoprolol (Metoprolol Succinate ER 100 mg oral TABLET extended release) 1 tab(s) by mouth Once a day Hypertension Unchanged Misc Medication (VITAMIN D3 125 MCG (5,000 UNIT) CAPSULE) Unchanged montelukast (montelukast 10 mg oral tablet) 1 tab(s) by mouth Once a day Duration: 90 Days Unchanged naltrexone (naltrexone 50 mg oral tablet) 0.5ab(s) by mouth Every day Unchanged norethindrone (norethindrone 5 mg oral tablet) See instructions Take one tablet daily for 14 days each month Unchanged oxybutynin (oxybutynin 10 mg/ 24 hr oral tablet, extended release) 1 tab(s) by mouth Once a day Unchanged pravastatin (pravastatin 40 mg oral tablet) 1 tab(s) by mouth Once a day Unchanged valsartan (valsartan 160 mg oral tablet) 1 tab(s) by mouth Once a day (in the evening) High blood pressure Please take this list to your next doctor s visit. Bring all medications you take, including over the counter medications, herbals and other supplements with you to your doctor s visit. Patients and families are reminded to discard old lists and to update any records with all medication providers or retail pharmacies. Medication Leaflets prednisone ([place] What is the most important information I should know about prednisone? You should not use prednisone if you have a fungal infection anywhere in your body. You should not stop using prednisone suddenly. Follow your doctor's instructions about tapering your dose. What is prednisone? Prednisone is a steroid that reduces inflammation in the body, and also suppresses your immune system. Prednisone is used to treat many different conditions such as hormonal disorders, skin diseases, arthritis, lupus, psoriasis, allergic conditions, ulcerative colitis, Crohn's disease, eye diseases, lung diseases, asthma, tuberculosis, blood cell disorders, kidney disorders, leukemia, lymphoma, multiple sclerosis, organ transplant rejection, swelling from a brain tumor or injury. Prednisone may also be used for purposes not listed in this medication guide. What should I discuss with my healthcare provider before taking prednisone? You should not use prednisone if you are allergic to it, or if you have a fungal infection anywhere in your body. Steroid medication can weaken your immune system, making it easier for you to get an infection or worsening an infection you already have. Tell your doctor about any illness or infection you've had within the past several weeks. Tell your doctor if you have ever had: heart problems, high blood pressure, or a heart attack; glaucoma or cataracts; herpes infection of the eyes; past or present tuberculosis; a parasite infection that causes diarrhea (such as threadworms); any illness that causes diarrhea; underactive thyroid; diabetes; a stomach ulcer, diverticulitis; a colostomy or ileostomy; osteoporosis or low bone mineral density (steroid medication can increase your risk of bone loss); low levels of calcium or potassium in your blood; cirrhosis or other liver disease; mental illness or psychosis; or a muscle disorder such as myasthenia gravis. Long-term use of steroids may lead to bone loss (osteoporosis), especially if you smoke or drink alcohol, if you do not exercise, or if you do not get enough vitamin D or calcium in your diet. It is not known whether this medicine will harm an unborn baby. Tell your doctor if you are or plan to become . You should not breastfeed while using prednisone. How should I take prednisone? Follow all directions on your prescription label and read all medication guides or instruction sheets. Your doctor may occasionally change your dose. Use the medicine exactly as directed. Prednisone is taken daily or every other day, depending on the condition being treated. You may need to take the medicine at a certain time of day. Follow your doctor's instructions about when and how often to take this medicine. Take with food if prednisone upsets your stomach. Measure liquid medicine carefully. Use the dosing syringe provided, or use a medicine dose-measuring device (not a kitchen spoon). Swallow the delayed-release tablet whole and do not crush, chew, or break it. Prednisone can weaken (suppress) your immune system, and you may get an infection more easily. Call your doctor if you have signs of infection (fever, weakness, cold or flu symptoms, skin sores, diarrhea, frequent or recurring illness). If you have major surgery or a severe injury or infection, your prednisone dose needs may change. Make sure any doctor caring for you knows you are using this medicine. If you use this medicine long-term, you may need medical tests and vision exams. In case of emergency, wear or carry medical identification to let others know you use a steroid. You should not stop using prednisone suddenly. Follow your doctor's instructions about tapering your dose. Store at room temperature away from moisture, heat, and light. What happens if I miss a dose? Take the medicine as soon as you can, but skip the missed dose if it is almost time for your next dose. Do not take two doses at one time. What happens if I overdose? Seek emergency medical attention or call the Poison Help line at . High doses or long-term use of prednisone can lead to thinning skin, easy bruising, changes in body fat (especially in your face, neck, back, and waist), increased acne or facial hair, menstrual problems, impotence, or loss of interest in sex. What should I avoid while taking prednisone? Do not receive a 'live' vaccine while using prednisone. The vaccine may not work as well and may not fully protect you from disease. Live vaccines include measles, mumps, rubella (MMR), polio, rotavirus, typhoid, yellow fever, varicella (chickenpox), zoster (shingles), and nasal flu (influenza) vaccine. Avoid being near people who are sick or have infections. Call your doctor for preventive treatment if you are exposed to chickenpox or measles. These conditions can be serious or even fatal in people who are using steroid medicine. Avoid drinking alcohol. What are the possible side effects of prednisone? Get emergency medical help if you have signs of an allergic reaction: hives; difficult breathing; swelling of your face, lips, tongue, or throat. Call your doctor at once if you have: muscle pain or weakness; blurred vision, tunnel vision, eye pain, or seeing halos around lights; severe depression, changes in personality, unusual thoughts or behavior; bloody or tarry stools, coughing up blood or vomit that looks like coffee grounds; swelling, rapid weight gain, feeling short of breath; irregular heartbeats; severe headache, pounding in your neck or ears; decreased adrenal gland hormones--muscle weakness, tiredness, diarrhea, nausea, menstrual changes, skin discoloration, craving salty foods, and feeling light-headed; or low potassium level--leg cramps, constipation, irregular heartbeats, fluttering in your chest, increased thirst or urination, numbness or tingling, muscle weakness or limp feeling. Prednisone can affect growth in children. Tell your doctor if your child is not growing at a normal rate while using this medicine. Common side effects may include: weight gain (especially in your face or your upper back and torso); increased appetite; mood changes, trouble sleeping; changes in your menstrual periods; problems with memory or thought; muscle or joint pain; weakness; headache, dizziness, spinning sensation; nausea, bloating, loss of appetite; slow wound healing; or acne, increased sweating, thinning skin, bruising, pinpoint spots under your skin. This is not a complete list of side effects and others may occur. Call your doctor for medical advice about side effects. You may report side effects to FDA at 2-455-VFY-3519. What other drugs will affect prednisone? Sometimes it is not safe to use certain medications at the same time. Some drugs can affect your blood levels of other drugs you take, which may increase side effects or make the medications less effective. Tell your doctor about all your current medicines. Many drugs can affect prednisone, especially: bupropion; cyclosporine; digoxin; ketoconazole; an antibiotic; control pills or hormone replacement therapy; a diuretic or 'water pill'; insulin or oral diabetes medicine; a blood thinner--warfarin, Coumadin, Jantoven; or NSAIDs (nonsteroidal anti-inflammatory drugs)--aspirin, ibuprofen (Advil, Motrin), naproxen (Aleve), celecoxib, diclofenac, indomethacin, meloxicam, and others. This list is not complete and many other drugs may affect prednisone. This includes prescription and icbp-epy-ibmqevb medicines, vitamins, and herbal products. Not all possible drug interactions are listed here. Where can I get more information? Your pharmacist can provide more information about prednisone. Remember, keep this and all other medicines out of the reach of children, never share your medicines with others, and use this medication only for the indication prescribed. Every effort has been made to ensure that the information provided by [employer]. ('[employer]') is accurate, up-to-date, and complete, but no guarantee is made to that effect. Drug information contained herein may be time sensitive. [employer] information has been compiled for use by healthcare practitioners and consumers in the [place] and therefore [employer] does not warrant that uses outside of the [place] are appropriate, unless specifically indicated otherwise. [employer]'s drug information does not endorse drugs, diagnose patients or recommend therapy. [employer] drug information is an informational resource designed to assist licensed healthcare practitioners in caring for their patients and/or to serve consumers viewing this service as a supplement to, and not a substitute for, the expertise, skill, knowledge and judgment of healthcare practitioners. The absence of a warning for a given drug or drug combination in no way should be construed to indicate that the drug or drug combination is safe, effective or appropriate for any given patient. [employer] does not assume any responsibility for any aspect of healthcare administered with the aid of information [employer] provides. The information contained herein is not intended to cover all possible uses, directions, precautions, warnings, drug interactions, allergic reactions, or adverse effects. If you have questions about the drugs you are taking, check with your doctor, nurse or pharmacist. Copyright [id number] [employer]. Version: 10.. Revision Date: 11/01/2018. lidocaine topical (LYE martinez lee TOP i nate) AneCream, Bactine, Glydo, LidaMantle, Lidoderm, LidoRx, Medi-Quik [place], RadiaGuard, RectiCare, Regenecare FOSTER [place], Solarcaine Cool Aloe What is the most important information I should know about lidocaine topical? An overdose of numbing medicine can cause fatal side effects if too much of the medicine is absorbed through your skin. Do not use large amounts of lidocaine topical, or cover treated skin areas with a bandage or plastic wrap without medical advice. Keep both used and unused lidocaine skin patches out of the reach of children or pets. The amount of lidocaine in the skin patches could be harmful to a child or pet who accidentally sucks on or swallows the patch. What is lidocaine topical? Lidocaine is a local anesthetic (numbing medication). There are many brands and forms of lidocaine available. Not all brands are listed on this leaflet. Lidocaine topical (for use on the skin) is used to reduce pain or discomfort caused by skin irritations such as sunburn, insect bites, poison toyin, poison oak, poison sumac, and minor cuts, scratches, or garcia. Lidocaine topical is also used to treat rectal discomfort caused by hemorrhoids. Lidocaine intradermal device can be used in minor medical procedures such as venipuncture or peripheral intravenous cannulation. Lidocaine topical may also be used for purposes not listed in this medication guide. What should I discuss with my healthcare provider before using lidocaine topical? You should not use lidocaine topical if you are allergic to any type of numbing medicine. Fatal overdoses have occurred when numbing medicines were used without the advice of a medical doctor (such as during a cosmetic procedure like laser hair removal). However, overdose has also occurred in women treated with a numbing medicine before having a mammography. Be aware that many cosmetic procedures are performed without a medical doctor present. Tell your doctor if you have ever had: a blood cell disorder called methemoglobinemia (in you or a family member); liver disease; or if you take a heart rhythm medicine. Tell your doctor if you are or . If you apply lidocaine topical to your chest, avoid areas that may come into contact with the baby's mouth. How should I use lidocaine topical? Use this medicine exactly as directed on the label, or as it has been prescribed by your doctor. Do not apply this medicine in larger amounts than recommended. Improper use of lidocaine topical may result in . Lidocaine topical comes in many different forms (gel, spray, cream, lotion, ointment, liquid, skin patch, and others). Do not take by mouth. Topical medicine is for use only on the skin. If this medicine gets in your eyes, nose, mouth, rectum, or vagina, rinse with water. Read and carefully follow any Instructions for Use provided with your medicine. Ask your doctor or pharmacist if you do not understand these instructions. Use the smallest amount of medicine needed to numb the skin or relieve pain. Your body may absorb too much of this medicine if you use too much, if you apply it over large skin areas, or if you apply heat, bandages, or plastic wrap to treated skin areas. Skin that is cut or irritated may also absorb more topical medication than healthy skin. Do not apply this medicine to swollen skin areas or deep puncture wounds. Avoid using the medicine on skin that is raw or blistered, such as a severe burn or abrasion. Do not cover treated skin unless your doctor has told you to. Lidocaine topical may be applied with your finger tips or a cotton swab. Lidocaine intradermal device is applied by a healthcare provider. Store at room temperature away from moisture and heat. Keep both used and unused lidocaine topical skin patches out of the reach of children or pets. The amount of lidocaine in the skin patches could be harmful to a child or pet who accidentally sucks on or swallows the patch. Seek emergency medical attention if this happens. What happens if I miss a dose? Since lidocaine topical is used when needed, you may not be on a dosing schedule. Skip any missed dose if it's almost time for your next dose. Do not use two doses at one time. What happens if I overdose? Seek emergency medical attention or call the Poison Help line at . An overdose of numbing medicine can cause fatal side effects if too much of the medicine is absorbed through your skin and into your blood. Overdose symptoms may include uneven heartbeats, seizure (convulsions), slowed breathing, coma, or respiratory failure (breathing stops). Lidocaine applied to the skin is not likely to cause an overdose unless you apply more than the recommended dose. What should I avoid while using lidocaine topical? Avoid touching the sticky side of a lidocaine skin patch while applying it. Avoid accidentally injuring treated skin areas while they are numb. Avoid coming into contact with very hot or very cold surfaces. What are the possible side effects of lidocaine topical? Get emergency medical help if you have signs of an allergic reaction: hives; difficulty breathing; swelling of your face, lips, tongue, or throat. Call your doctor at once if you have: severe headache or vomiting; severe burning, stinging, or irritation where the medicine was applied; swelling or redness; sudden dizziness or drowsiness after medicine is applied; confusion, problems with speech or vision, ringing in your ears; or unusual sensations of temperature. Common side effects include: mild irritation where the medication is applied; or numbness in places where the medicine is accidentally applied. This is not a complete list of side effects and others may occur. Call your doctor for medical advice about side effects. You may report side effects to FDA at 7-299-PXO-2372. What other drugs will affect lidocaine topical? Medicine used on the skin is not likely to be affected by other drugs you use. But many drugs can interact with each other. Tell each of your health care providers about all medicines you use, including prescription and bokd-dyc-uqdikzj medicines, vitamins, and herbal products. Where can I get more information? Your pharmacist can provide more information about lidocaine topical. Remember, keep this and all other medicines out of the reach of children, never share your medicines with others, and use this medication only for the indication prescribed. Every effort has been made to ensure that the information provided by [employer]. ('[employer]') is accurate, up-to-date, and complete, but no guarantee is made to that effect. Drug information contained herein may be time sensitive. [employer] information has been compiled for use by healthcare practitioners and consumers in the [place] and therefore [employer] does not warrant that uses outside of the [place] are appropriate, unless specifically indicated otherwise. [employer] drug information does not endorse drugs, diagnose patients or recommend therapy. [employer] drug information is an informational resource designed to assist licensed healthcare practitioners in caring for their patients and/or to serve consumers viewing this service as a supplement to, and not a substitute for, the expertise, skill, knowledge and judgment of healthcare practitioners. The absence of a warning for a given drug or drug combination in no way should be construed to indicate that the drug or drug combination is safe, effective or appropriate for any given patient. [employer] does not assume any responsibility for any aspect of healthcare administered with the aid of information [employer] provides. The information contained herein is not intended to cover all possible uses, directions, precautions, warnings, drug interactions, allergic reactions, or adverse effects. If you have questions about the drugs you are taking, check with your doctor, nurse or pharmacist. Copyright [id number] [employer]. Version: 9.02. Revision Date: 12/21/2021. Education Materials What Is Arthritis? Arthritis is a disease that affects the joints. Joints are the parts where bones meet and move. It can affect any joint in your body. There are many types of arthritis. They include: Osteoarthritis Rheumatoid arthritis Gout Lupus If your symptoms are mild, medicines may be enough to ease pain and swelling. For more severe arthritis, you may need surgery. This can improve the condition of the joint. Or it can replace part or all of the joint. What causes arthritis? Cartilage is a smooth substance that protects the ends of your bones and provides cushioning. When you have arthritis, this cartilage breaks down and can no longer protect your bones. This can happen from an autoimmune disease. Or it can happen from wear and tear, infections, or trauma. The bones rub against each other, causing pain and swelling. Over time, small pieces of rough or splintered bone (bone spurs) may develop. The joint's range of motion can become limited. Symptoms Some of the more common symptoms of arthritis include: Joint pain and stiffness. These symptoms get worse with long periods of rest. They may also get worse from using a joint too long or too hard. Joints that have lost normal shape and motion. They may look swollen and be hard to move. Sore, inflamed joints. They may look red and feel warm. Grinding or popping noise. This happens with joint movement. Fatigue. You may feel tired all the time. Reducing symptoms You can help ease symptoms in these ways: Losing weight Exercising Strengthening muscles around the joint to reduce the strain on the joint Using hot and cold packs on your joints Using swfv-hhb-swkvhch and prescription medicines Talk with your healthcare provider about the best treatments for your condition. 0467-5394 [employer]. [address] [place] [address]. All rights reserved. This information is not intended as a substitute for professional medical care. Always follow your healthcare professional's instructions. Established High Blood Pressure High blood pressure (hypertension) is a chronic disease. Often, healthcare providers don t know what causes it. But it can be caused by certain health conditions and medicines. If you have high blood pressure, you may not have any symptoms. If you do have symptoms, they may include headache, dizziness, changes in your vision, chest pain, and shortness of breath. But even without symptoms, high blood pressure that s not treated raises your risk for heart attack, heart failure, and stroke. High blood pressure is a serious health risk and shouldn t be ignored. Blood pressure measurements are given as 2 numbers. Systolic blood pressure is the upper number. This is the pressure when the heart contracts. Diastolic blood pressure is the lower number. This is the pressure when the heart relaxes between beats. You will see your blood pressure readings written together. For example, a person with a systolic pressure of 118 and a diastolic pressure of 78 will have 118/78 written in the medical record. Blood pressure is categorized as normal, elevated, or stage 1 or stage 2 high blood pressure: Normal blood pressure is systolic of less than 120 and diastolic of less than 80 (120/80) Elevated blood pressure is systolic of 120 to 129 and diastolic less than 80 Stage 1 high blood pressure is systolic is 130 to 139 or diastolic between 80 to 89 Stage 2 high blood pressure is when systolic is 140 or higher or the diastolic is 90 or higher Home care If you have high blood pressure, follow these home care guidelines to help lower your blood pressure. If you are taking medicines for high blood pressure, these methods may reduce or end your need for medicines in the future. Start a weight-loss program if you are overweight. Cut back on how much salt you get in your diet. Here s how to do this: oDon t eat foods that have a lot of salt. These include olives, pickles, smoked meats, and salted potato chips. oDon t add salt to your food at the table. oUse only small amounts of salt when cooking. Start an exercise program. Talk with your healthcare provider about the type of exercise program that would be best for you. It doesn't have to be hard. Even brisk walking for 20 minutes 3 times a week is a good form of exercise. Don t take medicines that stimulate the heart. This includes many xwuz-dpc-hspqqzj cold and sinus decongestant pills and sprays, as well as diet pills. Check the warnings about high blood pressure on the label. Before buying any vdpc-fjq-cwuogui medicines or supplements, always ask the pharmacist about the product's potential interaction with your high blood pressure and your high blood pressure medicines. Stimulants such as amphetamine or cocaine could be deadly for someone with high blood pressure. Never take these. Limit how much caffeine you get in your diet. Switch to caffeine-free products. Stop smoking. If you are a long-time smoker, this can be hard. Talk to your healthcare provider about medicines and nicotine replacement options to help you. Also, enroll in a stop-smoking program to make it more likely that you will quit for good. Learn how to handle stress. This is an important part of any program to lower blood pressure. Learn about relaxation methods like meditation, yoga, or biofeedback. If your provider prescribed medicines, take them exactly as directed. Missing doses may cause your blood pressure get out of control. If you miss a dose or doses, check with your healthcare provider or pharmacist about what to do. Consider buying an automatic blood pressure machine to check your blood pressure at home. Ask your provider for a recommendation. You can get one of these at most pharmacies. The [employer] recommends the following guidelines for home blood pressure monitoring: Don't smoke or drink coffee for 30 minutes before taking your blood pressure. Go to the bathroom before the test. Relax for 5 minutes before taking the measurement. Sit with your back supported (don't sit on a couch or soft chair); keep your feet on the floor uncrossed. Place your arm on a solid flat surface (like a table) with the upper part of the arm at heart level. Place the middle of the cuff directly above the bend of the elbow. Check the monitor's instruction manual for an illustration. Take multiple readings. When you measure, take 2 to 3 readings one minute apart and record all of the results. Take your blood pressure at the same time every day, or as your healthcare provider recommends. Record the date, time, and blood pressure reading. Take the record with you to your next medical appointment. If your blood pressure monitor has a built-in memory, simply take the monitor with you to your next appointment. Call your provider if you have several high readings. Don't be frightened by a single high blood pressure reading, but if you get several high readings, check in with your healthcare provider. Note: When blood pressure reaches a systolic (top number) of 180 or higher OR diastolic (bottom number) of 110 or higher, seek emergency medical treatment. Follow-up care You will need to see your healthcare provider regularly. This is to check your blood pressure and to make changes to your medicines. Make a follow-up appointment as directed. Bring the record of your home blood pressure readings to the appointment. When to seek medical advice Call your healthcare provider right away if any of these occur: Blood pressure reaches a systolic (upper number) of 180 or higher OR a diastolic (bottom number) of 110 or higher Chest pain or shortness of breath Severe headache Throbbing or rushing sound in the ears Nosebleed Sudden severe pain in your belly (abdomen) Extreme drowsiness, confusion, or fainting Dizziness or spinning sensation (vertigo) Weakness of an arm or leg or one side of the face You have problems speaking or seeing [employer]. [address] [place] [address]. All rights reserved. This information is not intended as a substitute for professional medical care. Always follow your healthcare professional's instructions. Arthralgia Arthralgia is the term for pain in or around the joint. It is a symptom, not a disease. This pain may involve one or more joints. In some cases, the pain moves from joint to joint. There are many causes for joint pain. These include: Injury Osteoarthritis (wearing out of the joint surface) Gout (inflammation of the joint due to crystals in the joint fluid) Infection inside the joint Bursitis (inflammation of the fluid-filled sacs around the joint) Autoimmune disorders such as rheumatoid arthritis or lupus Tendonitis (inflammation of chords that attach muscle to bone) Home care Rest the involved joint(s) until your symptoms improve. You may be prescribed pain medicine. If none is prescribed, you may use acetaminophen or ibuprofen to control pain and inflammation. Follow-up care Follow up with your healthcare provider or as advised. When to seek medical advice Contact your healthcare provider right away if any of the following occurs: Pain, swelling, or redness of joint increases Pain worsens or recurs after a period of improvement Pain moves to other joints You cannot bear weight on the affected joint You cannot move the affected joint Joint appears deformed New rash appears Fever of 100.4 F (38 C) or higher, or as directed by your healthcare provider [employer]. [address] [place] [address]. All rights reserved. This information is not intended as a substitute for professional medical care. Always follow your healthcare professional's instructions. Additional Information VACCINATE! IT SAVES LIVES! Members of the community who have not yet received the COVID-19 vaccine and would like to receive it can visit one of [facility] vaccine clinics. There are many vaccine clinic locations within the [facility]. For locations and available times, please visit [email or web address]. It is important to note that some COVID mobile vaccine clinics are held outdoors and may be canceled in rainy or stormy conditions. To learn more about pediatric vaccinations (ages 5-11), we invite you to visit the [facility] webpage. [email or web address] To learn more about the COVID-19 vaccine, we invite you to visit the [facility] website for a list of frequently asked questions. [email or web address] [facility] Patient Portal Access Instructions: Stay connected with your healthcare team and access your personal medical information anytime with the [facility] Patient Portal. If you would like a full copy of your medical records please contact the [facility] Medical Records Department Monday through Monday between 8a.m. and 4:30p.m. Please follow the directions below to access the portal: 1.Access the email account [facility].2.Look for an invitation email from [facility].3.Open the email and access the invitation link: Accept Invitation to [facility].Fill in the required melara to create your account. Sign into www.[facility] with your username and password that you created in the above steps to stay up to date. You can then view a summary of results, a summary of your visits, and the ability to download your summaries to your computer or send the information securely to a physician. Remember that your healthcare information is confidential, so carefully consider who you will allow to register on the [facility] Patient Portal for access to your information. You can also access the [facility] Patient Portal on the [employer] niki. Simply click on Health Records under Health Data and then click on the [employer] logo. HOW TO SAFELY DISPOSE OF PRESCRIPTION MEDICATIONS Please use one of the following methods to safely dispose of your unused medications. 1.Use a drug disposal kit: the drug disposal pouch allows you to safely discard your old and unused drugs. Ask your nurse to give you one when you are discharged.2.Visit a local take-back location: Many local pharmacies and police departments have programs that collect old and unwanted prescription drugs. Call your local pharmacy or go to http://bit.ly/8Z9Zx3q to find one close to you.3.Make use of household items: Use cat litter or old coffee grounds to dispose medications if other options are not available. Mix your drugs with these household products, seal them in an airtight container and throw it into the garbage. Call [facility]: [phone] to be sure your drugs can be disposed of in this way. Some medicines may require a different approach.4.Never flush your medications down the toilet. IF YOU HAVE BEEN PRESCRIBED AN OPIOIDS FOR PAIN If you have been prescribed an opioid (such as hydrocodone, oxycodone or morphine), it is critical to understand the possible side effects and risks of opioid pain medications. Even when taken as directed, opioids can have several side effects including: Tolerance, meaning you might need to take more of a medication for the same pain relief. Nausea, vomiting and/or constipation. Sleepiness, dizziness, dry mouth, confusion, depression or itching. Physical dependence, meaning you have withdrawal symptoms when a medication is stopped ? this can develop within a few days. KNOW YOUR RESPONSIBILITIES It is important to know exactly how much and how often to take the opioid pain medications you are prescribed. Never take opioids in higher amounts or more often than prescribed. Do not combine opioids with alcohol or other drugs that cause drowsiness, such as benzodiazepines, also known as benzos, including diazepam and alprazolam, muscle relaxants or sleep aids. Never sell or share prescription opioids. This is illegal. Store opioids in a secure place and out of reach of others (including children, family, friends and visitors). The last page(s) of this document has been signed and retained as a CHART COPY Signatures Patient Education Materials What is Arthritis? Hypertension, Established Arthralgia Medication Leaflets prednisone, lidocaine topical My discharge plan and instructions have been reviewed and explained to me and I,CAMILO LAZO understand my current condition and have read and understand these discharge instructions. I have received a written copy of the plan/instructions. If I have questions, I am aware that I should contact my doctor. Patient/Dry Color Tester Signature: Date/Time: Relationship to Patient: ___ Witness Name/Signature: Date/Time: [facility] 06-22-2022 Note ORIGINAL EXAMINATION: TWO XRAY VIEWS OF THE LEFT SHOULDER 06/22/2022 6:22 pm COMPARISON: Limited evaluation of the visualized portions of the left shoulder on radiograph of the chest January 09, 2020. HISTORY: ORDERING SYSTEM PROVIDED HISTORY: Reason for Exam: pain FINDINGS: Suboptimal evaluation due to patient body habitus. No fracture or dislocation. No radiopaque foreign body. Severe joint space narrowing of the glenohumeral joint with suggested small loose body inferior to the joint. IMPRESSION: No fracture or dislocation. Severe joint space narrowing of the glenohumeral joint with suggested small loose body inferior to the joint. Interpreted by: Stephon Diaz Preliminary Report By: Stephon Diaz Electronically signed By Stephon Diaz Dictated Date: 06/22/2022 6:34:11 PM Prelim Date: 06/22/2022 6:35:42 PM Sign Date: 06/22/2022 6:35:42 PM Ordering Provider: ALFIE BLAKE [facility] 06-22-2022 Note ORIGINAL EXAMINATION: TWO XRAY VIEWS OF THE LEFT SHOULDER 06/22/2022 6:22 pm COMPARISON: Limited evaluation of the visualized portions of the left shoulder on radiograph of the chest January 09, 2020. HISTORY: ORDERING SYSTEM PROVIDED HISTORY: Reason for Exam: pain FINDINGS: Suboptimal evaluation due to patient body habitus. No fracture or dislocation. No radiopaque foreign body. Severe joint space narrowing of the glenohumeral joint with suggested small loose body inferior to the joint. IMPRESSION: No fracture or dislocation. Severe joint space narrowing of the glenohumeral joint with suggested small loose body inferior to the joint. Interpreted by: Stephon Diaz Preliminary Report By: Stephon Diaz Electronically signed By Stephon Diaz Dictated Date: 06/22/2022 6:34:11 PM Prelim Date: 06/22/2022 6:35:42 PM Sign Date: 06/22/2022 6:35:42 PM Ordering Provider: ALFIE BLAKE [facility] Evaluation + Plan note Future Appointments Appointment Date:09/16/2021 09:00:00 AM Scheduled Provider:OBDULIO SUNG MD Location:[facility] Appointment Type:ENDO OV Appointment Date:11/03/2021 02:15:00 PM Scheduled Provider:LAYLA BLANCO DO Location:[facility] Appointment Type:PC OV Diagnostic Tests PendingCopper Level 09/08/21Nicotine / Cotinine, Serum 09/08/21Vitamin A Level 09/08/21Vitamin B1 (Thiamine), Whole Blood 09/08/21Zinc Level 09/08/21MISC Lab Send Out (Non-Blood Specimens) 09/08/21 [facility] Evaluation + Plan note Future Appointments Appointment Date:03/17/2022 09:00:00 AM Scheduled Provider:OBDULIO SUNG MD Location:[facility] Appointment Type:ENDO OV Appointment Date:05/06/2022 11:30:00 AM Scheduled Provider:LAYLA BLANCO DO Location:[facility] Appointment Type:PC OV Follow Up [facility] Evaluation + Plan note Future Appointments Appointment Date:05/06/2022 11:30:00 AM Scheduled Provider:LAYLA BLANCO DO Location:[facility] Appointment Type:PC OV Follow Up Appointment Date:09/15/2022 11:30:00 AM Scheduled Provider:OBDULIO SUNG MD Location:[facility] Appointment Type:ENDO OV Future Scheduled TestsThyroid Stimulating Hormone 09/17/22Free T4 09/17/22A1C Hemoglobin 09/17/22Lipid Profile 09/17/22Vitamin D Level 09/17/22Complete Metabolic Panel 09/17/22MA Mammo Diagnostic Bilateral w/Herbert 03/22/22 [facility] Evaluation + Plan note Future Appointments Appointment Date:05/31/2022 01:00:00 PM Scheduled Provider:LAYLA BLANCO DO Location:[facility] Appointment Type:PC OV Follow Up Appointment Date:09/15/2022 11:30:00 AM Scheduled Provider:OBDULIO SUNG MD Location:[facility] Appointment Type:ENDO OV Future Scheduled TestsThyroid Stimulating Hormone 09/17/22Free T4 09/17/22A1C Hemoglobin 09/17/22Lipid Profile 09/17/22Vitamin D Level 09/17/22Complete Metabolic Panel 09/17/22 [facility] Evaluation + Plan note Future Appointments Appointment Date:09/15/2022 11:30:00 AM Scheduled Provider:OBDULIO SUNG MD Location:[facility] Appointment Type:ENDO OV Appointment Date:11/29/2022 01:30:00 PM Scheduled Provider:LAYLA BLANCO DO Location:[facility] Appointment Type:PC OV Follow Up Future Scheduled TestsThyroid Stimulating Hormone 09/17/22Free T4 09/17/22A1C Hemoglobin 09/17/22Lipid Profile 09/17/22Vitamin D Level 09/17/22Complete Metabolic Panel 09/17/22 [facility] Evaluation + Plan note Future Appointments Appointment Date:09/15/2022 11:30:00 AM Scheduled Provider:OBDULIO SUNG MD Location:[facility] Appointment Type:ENDO OV Appointment Date:11/29/2022 01:30:00 PM Scheduled Provider:LAYLA BLANCO DO Location:[facility] Appointment Type:PC OV Follow Up [facility] Evaluation + Plan note Future Appointments Appointment Date:03/16/2023 10:00:00 AM Scheduled Provider:OBDULIO SUNG MD Location:[facility] Appointment Type:ENDO OV Appointment Date:06/05/2023 10:00:00 AM Scheduled Provider:LAYLA BLANCO DO Location:[facility] Appointment Type:PC OV Future Scheduled TestsBasic Metabolic Panel 01/29/23Thyroid Stimulating Hormone 03/15/23Free T4 03/15/23A1C Hemoglobin 03/15/23Free T3 03/15/23Lipid Profile 03/15/23Complete Metabolic Panel 03/15/23MA Mammo Screening Bilateral w/ Herbert 01/04/23 [facility] Evaluation + Plan note Future Appointments Appointment Date:03/16/2023 10:00:00 AM Scheduled Provider:OBDULIO SUNG MD Location:[facility] Appointment Type:ENDO OV Appointment Date:06/05/2023 10:00:00 AM Scheduled Provider:LAYLA BLANCO DO Location:[facility] Appointment Type:PC OV Future Scheduled TestsBasic Metabolic Panel 01/29/23MA Mammo Screening Bilateral w/ Herbert 01/04/23 [facility] Evaluation + Plan note Future Appointments Appointment Date:09/21/2023 10:00:00 AM Scheduled Provider:OBDULIO SUNG MD Location:[facility] Appointment Type:ENDO OV Appointment Date:12/05/2023 11:00:00 AM Scheduled Provider:LAYLA BLANCO DO Location:[facility] Appointment Type:PC OV Follow Up Diagnostic Tests PendingVitamin K1 Level 09/07/23 [facility] Renal cyst- Right complex- Primary Unspecified congenital cystic kidney disease Adrenal nodule (HCC)right 15mm Unspecified disorder of adrenal glands [facility]ge [facility]ge [facility]- Primary [facility] Urge incontinence [facility]* Initial onset of obesity was at age 25. * Their goal for surgery is to be healthier and to lose weight. * The patient has tried multiple diets to lose weight including a low carbohydrate diet. Paleo * The patient was most successful with Most Lbs Lost 45. [place]. * The patient considers carbs and portion size as their dietary weakness. Emotional Eating. She has had a maximum weight of 480 pounds and lowest weight ever of 180 pounds. * Severity of obesity is Class 3 which is a BMI of greater than or equal to 40. * The patient * The patient does not exercise. * Menstrual History: she reports a normal menses. * Procedure Preferred: a laparoscopic longitudinal gastrectomy. * Symptoms: The patient is experiencing daytime tiredness, decreased exercise tolerance, decreased range of motion, poor self esteem and snoring. * Comorbidities: asthma, anxiety, back pain, depressed mood, edema, metabolic syndrome, high cholesterol, infertility, joint pain, knee pain, urinary incontinence, polycystic ovarian syndrome, sleep apnea not using an appliance and hypertension controlled with oral meds. * 45 year old female presenting today for Initial surgical consultation with bariatric surgery. Patient has approximate BMI of 80 with related comorbidities of hypertension, pre diabetes, limited mobility, joint pain, dysthymia, and morbid obesity. Patient has been diagnosed with varying degrees of KATEY over the years, last was severe, is not wearing a CPAP. * Of note, this is the patient's 3rd attempt at proceeding through our program. She states she is a junk food-aholic , but also a finicky eater so she is shocked that she is 480 pounds (approximate weight, patient has not had an actual weight in quite some time). Patient is very immobile, uses a wheelchair to get around, sleeps in a hospital bed. She is able to ambulate very short distances with arolling walker or cane. [id number] Work Phone: History of Present illness Narrative* 45 yo female with pmhx: severe obesity BMI > 70, HLD, HTN, Depression, Low Vitamin D, polyarthralgia, PreDM, PCOS, KATEY, venous stasis. Presenting today for initial discussion of medical weight loss as adjunct to diet/exercise to optimize for surgery. Recently saw Dr. Artis for bariatric surgery evaluation, considering VSG, has consider bariatric surgical treatment on 3 previous occasions but has withdrawn from surgical process during previous program engagement. If to undergo weight loss surgery would benefit from presurgical weight loss, here today to discuss potential medications as adjunct to diet/physical activity in preparation for bariatric surgery. * Reason for visit today: medical management of obesity/weight loss * Personal Weight History: She believees she has been around her current body weight for the last year. Has put on approx 70-80 pounds over the last 5-10 years as she has become increasingly less mobile, struggled with orthopedic issues. * Highest: current * Lowest: 180 (age 18) * Most weight lost: 30 pounds when following no bread, mayes, processed food diet, renettao lost 45 # * Today's weight: 479 * Previous Weight Management programs tried: [facility], [facility], supervised weight loss with RD program * Obesogenic medications (TZD, insulin, sulfonylurea, paxil, antipsychotic, bb, seizure): Metoprolol * Previous medications for weight loss: Tried Trulicity with provider relations specialist, could not tolerate quick dose increase due to nausea, prescribed Victoza but refused to take due to size of needles. * Social Hx: * Employment: on SSI/disability * Sleep patterns: bedtime midnight, up around 6 am, does have KATEY NOT currently using CPAP * Household: Lake, (Amparo), daughter (Martha almost 18), friend & friend's son * Alcohol: rare/social * Tobacco: none personally but second hand smoke exposure * Recreational Drugs: marijuana smoked in home but Lake does not use any recreational substance * Cooking equipment: gas stove, deep freeze, fridge, mini fridge, microwave * Cooking/Grocery - does most of the cooking, Janee does cooking or her friend Bryce * Fast food: depends on budget, more often around 1st of month * Eating triggers: emotional * Typical beverages: Regular pop, sweetened tea, juice * Frequency of added sugar beverages: daily * Exercise: Limited as wheelchair bound currently, requesting PT referral from PCP * Diet Recall - 24 Hour * Breakfast - had brunch Taco Zabala Dallin Zabala Gumaro with steak, extra refried beans & sour cream, 32oz Shawna [place] Iced Tea * Snack - 20 oz Whit Green Tea, 5 oatmeal cinnamon chip cookies, unsalted sunflower kernels * Dinner - Pasta salad with shrimpe, mayes bits, vaishali shredded cheese * Beverages - does consume added sugar beverages by way of regular soda, juice, ice tea * Dietary restrictions/preferences: none * OTC Supplement use: see med list * Medical, surgical, family hx updated in appropriate EMR chart tabs. [id number] Work Phone: History of Present illness Narrative* 45 yo female with pmhx: severe obesity BMI > 70, HLD, HTN, Depression, Low Vitamin D, polyarthralgia, PreDM, PCOS, KATEY, venous stasis. Presenting today for initial discussion of medical weight loss as adjunct to diet/exercise to optimize for surgery. Recently saw Dr. Artis for bariatric surgery evaluation, considering VSG, has consider bariatric surgical treatment on 3 previous occasions but has withdrawn from surgical process during previous program engagement. If to undergo weight loss surgery would benefit from presurgical weight loss, here today to discuss potential medications as adjunct to diet/physical activity in preparation for bariatric surgery. * Reason for visit today: medical management of obesity/weight loss * Personal Weight History: She believees she has been around her current body weight for the last year. Has put on approx 70-80 pounds over the last 5-10 years as she has become increasingly less mobile, struggled with orthopedic issues. * Highest: current * Lowest: 180 (age 18) * Most weight lost: 30 pounds when following no bread, mayes, processed food diet, jaycob lost 45 # * Today's weight: 479 * Previous Weight Management programs tried: [facility], [facility], supervised weight loss with RD program * Obesogenic medications (TZD, insulin, sulfonylurea, paxil, antipsychotic, bb, seizure): Metoprolol * Previous medications for weight loss: Tried Trulicity with provider relations specialist, could not tolerate quick dose increase due to nausea, prescribed Victoza but refused to take due to size of needles. * Social Hx: * Employment: on SSI/disability * Sleep patterns: bedtime midnight, up around 6 am, does have KATEY NOT currently using CPAP * Household: Lake, (Amparo), daughter (Martha almost 18), friend & friend's son * Alcohol: rare/social * Tobacco: none personally but second hand smoke exposure * Recreational Drugs: marijuana smoked in home but Lake does not use any recreational substance * Cooking equipment: gas stove, deep freeze, fridge, mini fridge, microwave * Cooking/Grocery - does most of the cooking, Janee does cooking or her friend Bryce * Fast food: depends on budget, more often around 1st of month * Eating triggers: emotional * Typical beverages: Regular pop, sweetened tea, juice * Frequency of added sugar beverages: daily * Exercise: Limited as wheelchair bound currently, requesting PT referral from PCP * Diet Recall - 24 Hour * Breakfast - had harsh Zabala Gumaro with steak, extra refried beans & sour cream, 32oz Shawna [place] Iced Tea * Snack - 20 oz Whit Green Tea, 5 oatmeal cinnamon chip cookies, unsalted sunflower kernels * Dinner - Pasta salad with shrimpe, mayes bits, vaishali shredded cheese * Beverages - does consume added sugar beverages by way of regular soda, juice, ice tea * Dietary restrictions/preferences: none * OTC Supplement use: see med list * Medical, surgical, family hx updated in appropriate EMR chart tabs. [id number] Work Phone: History of Present illness Narrative* 45 yo female with pmhx: severe obesity BMI > 70, HLD, HTN, Depression, Low Vitamin D, polyarthralgia, PreDM, PCOS, KATEY, venous stasis. Presenting today for initial discussion of medical weight loss as adjunct to diet/exercise to optimize for surgery. Recently saw Dr. Artis for bariatric surgery evaluation, considering VSG, has consider bariatric surgical treatment on 3 previous occasions but has withdrawn from surgical process during previous program engagement. If to undergo weight loss surgery would benefit from presurgical weight loss, here today to discuss potential medications as adjunct to diet/physical activity in preparation for bariatric surgery. * Reason for visit today: medical management of obesity/weight loss * Personal Weight History: She believees she has been around her current body weight for the last year. Has put on approx 70-80 pounds over the last 5-10 years as she has become increasingly less mobile, struggled with orthopedic issues. * Highest: current * Lowest: 180 (age 18) * Most weight lost: 30 pounds when following no bread, mayes, processed food diet, jaycob lost 45 # * Today's weight: 479 * Previous Weight Management programs tried: Jaycob, [facility], supervised weight loss with RD program * Obesogenic medications (TZD, insulin, sulfonylurea, paxil, antipsychotic, bb, seizure): Metoprolol * Previous medications for weight loss: Tried Trulicity with provider relations specialist, could not tolerate quick dose increase due to nausea, prescribed Victoza but refused to take due to size of needles. * Social Hx: * Employment: on SSI/disability * Sleep patterns: bedtime midnight, up around 6 am, does have KATEY NOT currently using CPAP * Household: Lake, (Amparo), daughter (Martha almost 18), friend & friend's son * Alcohol: rare/social * Tobacco: none personally but second hand smoke exposure * Recreational Drugs: marijuana smoked in home but Lake does not use any recreational substance * Cooking equipment: gas stove, deep freeze, fridge, mini fridge, microwave * Cooking/Grocery - does most of the cooking, Janee does cooking or her friend Bryce * Fast food: depends on budget, more often around 1st of month * Eating triggers: emotional * Typical beverages: Regular pop, sweetened tea, juice * Frequency of added sugar beverages: daily * Exercise: Limited as wheelchair bound currently, requesting PT referral from PCP * Diet Recall - 24 Hour * Breakfast - had brunch Taco Zabala Dallin Zabala Gumaro with steak, extra refried beans & sour cream, 32oz Shawna [place] Iced Tea * Snack - 20 oz Whit Green Tea, 5 oatmeal cinnamon chip cookies, unsalted sunflower kernels * Dinner - Pasta salad with shrimpe, mayes bits, vaishali shredded cheese * Beverages - does consume added sugar beverages by way of regular soda, juice, ice tea * Dietary restrictions/preferences: none * OTC Supplement use: see med list * Medical, surgical, family hx updated in appropriate EMR chart tabs. 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.RAW 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0, Z83.3) Status:Active Family history of High sebas sterol(272.0, E78.00) Status:Active Family history of myocardial infarction(V17.3, Z82.49) Status:Active Unknown Family Member Name Dates Details Family history of diabetes m ellitus: Mother, Father(V18.0, Z83.3) Status:Active High cholesterol: Father Status:Active Family history of rheumatoid arthritis: Mother(V17.7, Z82.61) Status:Active Family history of asthma: Mo ther(V17.5, Z82.5) Status:Active Family history of myocardial infarction: Father(V17.3, Z82.49) Comments:age 59; Status:Active Unknown Family Member Name Dates Details Family history of diabetes m ellitus: Mother, Father(V18.0, Z83.3) Status:Active High cholesterol: Father Status:Active Family history of rheumatoid arthritis: Mother(V17.7, Z82.61) Status:Active Family history of asthma: Mo ther(V17.5, Z82.5) Status:Active Family history of myocardial infarction: Father(V17.3, Z82.49) Comments:age 59; Status:Active Unknown Family Member Name Dates Details Family history of diabetes m ellitus: Mother, Father(V18.0, Z83.3) Status:Active High cholesterol: Father Status:Active Family history of rheumatoid arthritis: Mother(V17.7, Z82.61) Status:Active Family history of asthma: Mo ther(V17.5, Z82.5) Status:Active Family history of myocardial infarction: Father(V17.3, Z82.49) Comments:age 59; Status:Active Unknown Family Member Name Dates Details Family history of diabetes m ellitus: Mother, Father(V18.0, Z83.3) Status:Active High cholesterol: Father Status:Active Family history of rheumatoid arthritis: Mother(V17.7, Z82.61) Status:Active Family history of asthma: Mo ther(V17.5, Z82.5) Status:Active Family history of myocardial infarction: Father(V17.3, Z82.49) Comments:age 59; Status:Active CKD stage 4 secondary to hyp ertension: Father Status:Active Unknown Family Member Name Dates Details Family history of diabetes m ellitus: Mother, Father(V18.0, Z83.3) Status:Active High cholesterol: Father Status:Active Family history of rheumatoid arthritis: Mother(V17.7, Z82.61) Status:Active Family history of asthma: Mo ther(V17.5, Z82.5) Status:Active Family history of myocardial infarction: Father(V17.3, Z82.49) Comments:age 59; Status:Active CKD stage 4 secondary to hyp ertension: Father Status:Active Unknown Family Member Name Dates Details Family history of diabetes m ellitus: Mother, Father(V18.0, Z83.3) Status:Active High cholesterol: Father Status:Active Family history of rheumatoid arthritis: Mother(V17.7, Z82.61) Status:Active Family history of asthma: Mo ther(V17.5, Z82.5) Status:Active Family history of myocardial infarction: Father(V17.3, Z82.49) Comments:age 59; Status:Active CKD stage 4 secondary to hyp ertension: Father Status:Active Unknown Family Member Name Dates Details Family history of diabetes m ellitus: Mother, Father(V18.0, Z83.3) Status:Active High cholesterol: Father Status:Active Family history of rheumatoid arthritis: Mother(V17.7, Z82.61) Status:Active Family history of asthma: Mo ther(V17.5, Z82.5) Status:Active CKD stage 4 secondary to hyp ertension: Father Status:Active Family history of myocardial infarction: Father(V17.3, Z82.49) Comments:age 59; Status:Active Unknown Family Member Name Dates Details Family history of diabetes m ellitus: Mother, Father(V18.0, Z83.3) Status:Active High cholesterol: Father Status:Active Family history of rheumatoid arthritis: Mother(V17.7, Z82.61) Status:Active Family history of asthma: Mo ther(V17.5, Z82.5) Status:Active Family history of myocardial infarction: Father(V17.3, Z82.49) Comments:age 59; Status:Active CKD stage 4 secondary to hyp ertension: Father Status:Active Unknown Family Member Name Dates Details CKD stage 4 secondary to hyp ertension: Father Status:Active Family history of myocardial infarction: Father(V17.3, Z82.49) Comments:age 59; Status:Active Family history of asthma: Mo ther(V17.5, Z82.5) Status:Active Family history of rheumatoid arthritis: Mother(V17.7, Z82.61) Status:Active High cholesterol: Father Status:Active Family history of diabetes m ellitus: Mother, Father(V18.0, Z83.3) Status:Active Unknown Family Member Name Dates Details CKD stage 4 secondary to hyp ertension: Father Status:Active Family history of myocardial infarction: Father(V17.3, Z82.49) Comments:age 59; Status:Active Family history of diabetes m ellitus: Mother, Father(V18.0, Z83.3) Status:Active High cholesterol: Father Status:Active Family history of rheumatoid arthritis: Mother(V17.7, Z82.61) Status:Active Family history of asthma: Mo ther(V17.5, Z82.5) Status:Active Unknown Family Member Name Dates Details Family history of diabetes m ellitus: Mother, Father(V18.0, Z83.3) Status:Active High cholesterol: Father Status:Active Family history of rheumatoid arthritis: Mother(V17.7, Z82.61) Status:Active Family history of asthma: Mo ther(V17.5, Z82.5) Status:Active CKD stage 4 secondary to hyp ertension: Father Status:Active Family history of myocardial infarction: Father(V17.3, Z82.49) Comments:age 59; Status:Active Advance Directives No Advanced Directives Records FoundNo Advanced Directives Records FoundNo Advanced Directives Records FoundNo Advanced Directives Records FoundNo Advanced Directives Records FoundNo Advanced Directives Records FoundNo Advanced Directives Records FoundNo Advanced Directives Records Found Chief Complaint * The patient is being seen initial visit. * An interactive audio and video telecommunication system which permits real time communications between the patient (at the originating site) and provider (at the distant site) was utilized to providethis telehealth service. * Verbal consent was requested and obtained from LAKE LAZO on this date, 04/23/2021 10:00 AM , for a telehealth visit. MWL initial evalMWL initial evalMWL initial eval* A telephone visit (audio only) between the patient (at the originating site) and the provider (at the distant site) was utilized to provide this telehealth service. * obesity * MsWL * A telephone visit (audio only) between the patient (at the originating site) and the provider (at the distant site) was utilized to provide this telehealth service. * obesity * MSWL * PsychChiefComplaintFreeTextNoteForm_[facility]: * An interactive audio and video telecommunication system which permits real time communications between the patient (at the originating site) and provider (at the distant site) was utilized to providethis telehealth service. * Verbal consent was requested and obtained from LAKE LAZO on this date, 08/10/2021 10:00 AM , for a telehealth visit. * Required pre-bariatric surgery psychological evaluation Additional Source Comments INFORMATION SOURCE (unrecogn ized section and content) DATE CREATED AUTHOR AUTHOR'S ORGANIZ ATION 06/23/2021 [facility] DATE CREATED AUTHOR AUTHOR'S ORGANIZ ATION 07/22/2021 [facility] DATE CREATED AUTHOR AUTHOR'S ORGANIZ ATION 07/22/2021 [employer] DATE CREATED AUTHOR AUTHOR'S ORGANIZ ATION 10/27/2021 [facility] [place] DATE CREATED AUTHOR AUTHOR'S ORGANIZ ATION 01/27/2023 [facility] DATE CREATED AUTHOR AUTHOR'S ORGANIZ ATION 04/08/2023 [facility] DATE CREATED AUTHOR AUTHOR'S ORGANIZ ATION 05/30/2023 [facility] ([place]) Care Team (unrecognized sect ion and content) Care Team Personnel Name: LAYLA BLANCO DO Position: P4 Physician - Primary Care Med Service: Active Provider Member Role: Primary Care Physician Address: Address: [address] [place] [phone]- Care Team Related Persons Name: AMPARO LAZO Address: Home [address], [place] [id number] [place] Address: Temporary [address], [place] [id number] Care Team Personnel Name: LAYLA BLANCO DO Position: P4 Physician - Primary Care Med Service: Active Provider Member Role: Primary Care Physician Address: Address: [address] [place] [address]- Care Team Related Persons Name: AMPARO LAZO Address: Home [address], [place] [id number] [place] Address: Temporary [address], [place] [id number] Care Team Personnel Name: LAYLA BLANCO DO Position: P4 Physician - Primary Care Med Service: Active Provider Member Role: Primary Care Physician Address: Address: [address] [place] [phone]- Care Team Related Persons Name: AMPARO LAZO Address: Home [address], [place] [id number] [place] Address: Temporary [address], [place] [id number] Care Team Personnel Name: LAYLA BLANCO DO Position: P4 Physician - Primary Care Member Role: Primary Care Physician Address: Address: [address] [place] [address]- Name: ALFIE BLAKE MD Position: ED Physician Member Role: Attending Physician Address: Address: [address] [place] [address] Name: ADRIENNE Tavarez Position: AO RN Member Role: ED RN Care Team Related Persons Name: AMPARO LAZO Address: Home [address], [place] [id number] [place] Address: Temporary [address], [place] [id number] Care Team Personnel Name: LAYLA BLANCO DO Position: P4 Physician - Primary Care Member Role: Primary Care Physician Address: Address: [address] [place] [address]- Care Team Related Persons Name: AMPARO LAZO Address: Home [address], [place] [id number] [place] Address: [address] [id number] Source Comments (unrecognize d section and content) In the event this informatio n is protected by the Federal Confidentiality of Alcohol and Drug Abuse Patient Records regulations: The Federal rules restrict any use of the information to criminally investigate or prosecute any alcohol or drug abuse patient.[facility] the event this information is protected by the Federal Confidentiality of Alcohol and Drug Abuse Patient Records regulations: The Federal rules restrict any use of the information to criminally investigate or prosecute any alcohol or drug abuse patient.[facility] Center[facility] the event this information is protected by the Federal Confidentiality of Alcohol and Drug Abuse Patient Records regulations: The Federal rules restrict any use of the information to criminally investigate or prosecute any alcohol or drug abuse patient.[facility] Center[facility] the event this information is protected by the Federal Confidentiality of Alcohol and Drug Abuse Patient Records regulations: The Federal rules restrict any use of the information to criminally investigate or prosecute any alcohol or drug abuse patient.[facility] Center[facility] the event this information is protected by the Federal Confidentiality of Alcohol and Drug Abuse Patient Records regulations: The Federal rules restrict any use of the information to criminally investigate or prosecute any alcohol or drug abuse patient.[facility] Center[facility] the event this information is protected by the Federal Confidentiality of Alcohol and Drug Abuse Patient Records regulations: The Federal rules restrict any use of the information to criminally investigate or prosecute any alcohol or drug abuse patient.[facility] Center[facility] the event this information is protected by the Federal Confidentiality of Alcohol and Drug Abuse Patient Records regulations: The Federal rules restrict any use of the information to criminally investigate or prosecute any alcohol or drug abuse patient.[facility] Center[facility] the event this information is protected by the Federal Confidentiality of Alcohol and Drug Abuse Patient Records regulations: The Federal rules restrict any use of the information to criminally investigate or prosecute any alcohol or drug abuse patient.[facility] Reason for Visit (unrecogniz ed section and content) Reason Comments incontinence supplies Reason Comments Follow Up Kidney issue Reason Comments Orders Reason Comments Patient Update Reason Onset Date Comments Refill Request 02/06/2023 Care Teams (unrecognized sec tion and content) Care Team Personnel Name: LAYLA BLANCO DO Position: P4 Physician - Primary Care Member Role: Primary Care Physician Address: Address: [address] [place] [id number] [place] [address] Care Team Related Persons Name: BRYCE HUERTA Address: Home [address], [place] [id number] [place] Address: Temporary [address] [place] [id number] Name: ROSA PATTON Address: Home [address], [place] [id number] [place] Address: Temporary [address] [place] [id number] Candle Pourer Relationship Specialty Start Date End Date Maia Camacho MD PCP - General Family Medicine 06/03/13 Candle Pourer Relationship Specialty Start Date End Date Maia Camacho MD PCP - General Family Medicine 06/03/13 Candle Pourer Relationship Specialty Start Date End Date Layla Blanco DO [address] [place] [address] PCP - General Family Medicine 11/07/22 Candle Pourer Relationship Specialty Start Date End Date Layla Blanco DO [address] [place] [address] PCP - General Family Medicine 11/07/22 Candle Pourer Relationship Specialty Start Date End Date Layla Blanco DO [address] [place] [address] PCP - General Family Medicine 11/07/22 Candle Pourer Relationship Specialty Start Date End Date JaskaranLayla carreonDO [address] [place] [address] PCP - General Family Medicine 11/07/22 Candle Pourer Relationship Specialty Start Date End Date Jaskaran Layla EdmondDO [address] [place] [address] PCP - General Family Medicine 11/07/22 FOR RECORDS PERTAINING TO PATIENTS WHO ARE OR HAVE BEEN ENROLLED IN A CHEMICAL DEPENDENCY/SUBSTANCEABUSE PROGRAM, SOME INFORMATION MAY BE OMITTED. This clinical summary was aggregated from multiple sources. Caution should be exercised in using it in the provision of clinical care. This summary normalizes information from multiple sources, and as a consequence, information in this document may materially change the coding, format and clinical context of patient data. In addition, data may be omitted in some cases. CLINICAL DECISIONS SHOULD BE BASED ON THE PRIMARY CLINICAL RECORDS. [facility] [employer] [facility]. provides no warranty or guarantee of the accuracy or completeness of information in this document.
== END | disposition home or self-care (01) ==
PROVIDERS: PCP Preventive Medicine Occupational Medicine; Visit Provider Physician Assistant
DX: L89.90 Pressure ulcer of unspecified site, unspecified stage (principal)
CPT/HCPCS: 87070; 87077; 87186; 87205

== ENCOUNTER 2023-10-02 10:15 | Outpatient (RCR) | payer MEDICAID, SELFPAY ==
[2023-09-25 10:02] VITALS: BP 167/86; PULSE 78; RESP 18; TEMP 35.5; BMI 72.0
--- NOTE | 2023-09-25 11:13 | PCM.WC.HP ---
History of Present Illness Date of Service: 09/25/23 Chief Complaint: Ulcer on abdomen and leaky belly button. History of Wound: Patient is a 48-year-old female who presented on her pannus. She states that it was just noticed 1 to 2 weeks ago. She is obese and has a difficult time walking due to knee pain. She is able to transfer to and from her wheelchair. She states she is still able to drive. She states that she was bathing a couple weeks ago and discovered this ulcer. She states that it does have drainage. She has been covering it with a disposable pad to absorb the drainage. She also states that she has issues with drainage from her umbilicus. It will sometimes have a strong odor and also will bleed on occasion. She states she has seen dermatology and a general surgeon about this and they stated there was not much to do for this. Dermatology has put her on Ketoconazole cream for rashes in skin folds, that she has not recently been using. While examining her it was discovered that she also has an ulcer on her right lateral abdomen and her left lateral abdomen in a skin fold. She states she has a hard time bathing herself due to the weight of her pannus. She has a history of hypothyroidism, pre diabetes, polycystic ovary, asthma, sleep apnea, an ulcer on her left lower leg, and right knee arthritis. She comes in today for further evaluation of her ulcer. She denies fever, chills, nausea or vomiting. Progress of Wound: Lower abdominal/pannus ulcer is pink/purple in color, there is currently not much drainage present. In the area where this ulcer is located, there is pitting edema present, since this is the area of most dependency. She also has an ulcer on her left lateral abdomen and right lateral abdomen in the pannus skin fold, that she was unaware of having until today. She complains of drainage from her umbilicus that sometimes has a strong odor and will also sometimes bleed. [facility] Medical History (Reviewed 09/25/23 @ 16:53 by Gale Haddad [employer]LY[employer], [employer] ANALYST-C) Abdominal pannus Asthma Bursitis, prepatellar, right Decubitus skin ulcer Depressive disorder HTN (hypertension) Hyperlipidemia Hypothyroid Obesity KATEY (obstructive sleep apnea) Osteoarthritis of right knee Polycystic ovarian disease Right knee pain Seasonal allergies Home Medications metoprolol tartrate 50 mg tablet 100 mg PO BID 09/23/14 [History Last Taken Unknown] cholecalciferol (vitamin D3) 25 mcg (1,000 unit) tablet 10,000 unit PO DAILY 07/08/16 [History Last Taken Unknown] norethindrone acetate 5 mg tablet 5 mg PO DAILY 07/08/16 [History Last Taken Unknown] metformin 500 mg tablet 1,000 mg PO BID 11/02/17 [History Last Taken Unknown] albuterol sulfate 90 mcg/actuation aerosol inhaler 2 puff inhalation Q6H PRN shortness of breath or wheezing #1 device 11/07/17 [Rx Last Taken Unknown] diclofenac potassium 25 mg capsule 50 mg PO BID 11/07/17 [History Last Taken Unknown] montelukast 10 mg tablet 10 mg PO DAILY #30 tabs 11/07/17 [Rx Last Taken Unknown] cyanocobalamin (vitamin B-12) 1,000 mcg capsule 1,000 mcg PO DAILY 12/14/19 [History Last Taken Unknown] cyclobenzaprine 10 mg tablet 10 mg PO TID PRN Muscle Spasm 12/14/19 [History Last Taken Unknown] levothyroxine 50 mcg tablet 50 mcg PO DAILY 12/14/19 [History Last Taken Unknown] pravastatin 40 mg tablet 40 mg PO DAILY 12/14/19 [History Last Taken Unknown] loratadine 10 mg tablet (Allergy Relief (loratadine)) 10 mg PO DAILY 08/11/22 [History Last Taken Unknown] bupropion HCl 75 mg tablet 75 mg PO ONCE 11/03/22 [History Last Taken Unknown] mirabegron 25 mg tablet,extended release 24 hr (Myrbetriq) 25 mg PO DAILY 11/03/22 [History Last Taken Unknown] naltrexone 50 mg tablet 50 mg PO DAILY 11/03/22 [History Last Taken Unknown] valsartan 160 mg tablet (Diovan) 160 mg PO DAILY 11/03/22 [History Last Taken Unknown] acetaminophen 650 mg tablet,extended release 650 mg PO Q8H 05/05/23 [History Last Taken Unknown] lidocaine 5 % topical patch 1 patch topical DAILY 05/05/23 [History Last Taken Unknown] promethazine-DM oral syrup ea PO 05/05/23 [History Last Taken Unknown] mupirocin 2 % topical ointment 1 applic topical BID 10/24/23 [History Last Taken Unknown] vitamin K2 100 mcg capsule 100 mcg PO DAILY 05/30/23 [History Last Taken Unknown] doxycycline monohydrate 100 mg capsule 100 mg PO BID #20 caps 09/12/23 [Rx Last Taken Unknown] nystatin 100,000 unit/gram topical powder 1 applic topical BID 14 days #30 grams 09/25/23 [Rx Last Taken Unknown] Allergy/AdvReac Type Severity Reaction Status Date / Time dulaglutide [From [facility]] AdvReac Intermediate Nausea Verified 09/12/23 16:06 Family History (Reviewed 09/25/23 @ 16:53 by Gale Haddad [employer], [employer] ANALYST-C) Mother CVA (cerebral vascular accident) Asthma Diabetes Father Diabetes Hypertension Grandmother Heart disease Alcohol abuse Grandfather Cancer Surgical History (Reviewed 09/25/23 @ 16:53 by Gale Haddad [employer]LY[employer], [employer] ANALYST-C) H/O adenoidectomy History of tonsillectomy Social History (Reviewed 09/25/23 @ 16:53 by Gale Haddad [employer]LYST, [employer] CAPITAL ANALYST-C) Smoking Status: Never smoker alcohol intake: never substance use type: does not use ROS Constitutional Constitutional: Denies chills or fever(s) Eyes Eyes: Reports none ENT HEENT: Reports none Cardiovascular Cardiovascular: Denies chest pain or dyspnea Respiratory/Chest Respiratory/Chest: Denies cough or dyspnea Gastrointestinal Gastrointestinal: Reports none Genitourinary Genitourinary: Reports urinary frequency and urinary urgency Musculoskeletal Musculoskeletal: Reports joint pain and joint stiffness Integumentary Integumentary: Reports skin ulcer Neurologic Neurologic: Reports systems reviewed and no addt'l complaints, except as documented Psychiatric Psychiatric: Reports as per HPI Endocrine Endocrinology: Reports as per HPI Vital Signs Vital Signs Vital Signs: 09/25/23 10:02 Temperature 95.9 F L Temperature Source Temporal Pulse Rate 78 Respiratory Rate 18 Blood Pressure 167/86 H Blood Pressure Mean 113 Blood Pressure Source Monitor Blood Pressure Position Sitting Blood Pressure Location Left Forearm Oxygen Delivery Method Room Air Weight Weight: 433 lb Body Mass Index (BMI) 72.0 Physical Exam Const alert and oriented x3 Constitutional Narrative: Very pleasant. General Appearance: cooperative HEENT normocephalic Head and Scalp: atraumatic Eyes General Eye: normal appearance of both eyes Neck full ROM Resp normal respiratory effort, normal air movement and clear to auscultation bilaterally Effort and Inspection: able to speak in complete sentences Cardio regular rate and regular rhythm GI soft to palpation and non-tender GI Narrative: Very large pannus. Pannus is soft and mobile, except at the most dependent portion where there is pitting edema and dimpling. This is the area where the ulcer is located. Unable to palpate intestines, so clinically the pannus does not seem to contain intestines. Back/Spine normal ROM Extremity normal capillary refill Skin Skin Narrative: Patient has a large pannus that in the center on the most dependent portion it is firm with pitting edema. It is on this portion that there is an ulcer on the underneath portion. There is no erythema or warmth. Her umbilicus stalk is elongated and she has moisture in this area. No erythema present. There is moisture in the umbilicus and is measures 10 cm deep. It is non painful. She has an erythematous rash in the crease of her pannus that clinically looks like yeast. Wound Narrative: Uler on lower abdomen on her pannus on the most dependent portion. It is pink/purple in color. Currently not draining. No erythema surrounding the ulcer. She also has an ulcer on her left lateral abdomen in the skin fold and on her right lateral abdomen in the skin fold. They are both pink, into the subcutaneous tissue. Neuro oriented x3 Psych mental status grossly normal and thought process normal Debridement Note Debridement Note Wound debrided: Lower abdominal pannus Laterality: Not Applicable Wound Grade/Stage: Stage III Type of Debridement: Excisional debridement Anesthesia Used: Cetacaine Depth: Down to and including healthy tissue and in the subcutaneous layer Percentage of wound debrided: 100 Instrument Used: 7mm curette Tissue Removed: Non viable tissue and slough Severity: Fat Layer Exposed Amount of bleeding with debridement: None Bleeding Controlled with: Compression and gauze Patient tolerated procedure: Patient tolerated procedure well Post-Debridement Measurements and Additional Note: Post-Debridement Measurements/Treatment - Nurse 1 - General Ulcer Assessment Start: 09/25/23 09:55 Freq: Status: Active Protocol: BALDEMAR Activity Type Activity Date Activity User E-sign Co-sign Detail Recorded Client Recorded Date Recorded By Document 09/25/23 10:02 KW Desktop 09/25/23 10:14 KW 09/25/23 10:02 - Today's Visit Information Type of service Initial Visit Arrival Mode Wheelchair Accompanied by roommate- Alpa Patient Identification Verified (Name & Yes ) Height and Weight Height 5 ft 5 in Weight 433 lb Weight in Pounds 433.0 lbs Body Mass Index (BMI) 72.0 BMI Classification Obese BSA - Shukri 2.75 Vital Signs Temperature (97.8 F-99.1 F) 95.9 F L Temperature Source Temporal Pulse Rate (60-100) 78 Pulse Location Monitor Respiratory Rate (12-18) 18 Respiratory rate source Observation Oxygen Delivery Method Room Air Blood Pressure (90/60-120/80) 167/86 H Blood Pressure Mean 113 Source Monitor Position Sitting Blood Pressure Location Left Forearm History Since Last Visit- (Skip if this is Patient's initial visit) Left Footwear Regular Shoe Right Footwear Regular Shoe Pain Scale: 0-10 Numeric Is Patient Pain Free? Yes Communication Assessment Preferred language Ivorian Able to Read Yes Able to Write Yes Communication Tools None Caregiver Communication Skills No Impairment Impairment Right Hearing Abillity Normal Left Hearing Abillity Normal Visual Assistive Devices None Teaching Assessment Preferences Verbal,Written, Demonstration Barriers to Learning None Readiness To Learn Excellent Willingness to Engage in Self Management High Activies Readiness to Engage in Self Management High Activities Anxiety Level Calm Cooperation Cooperative Perception Coherent Interest in Health Problem Asks Questions Education Importance Acknowledges Need Does Patient Smoke tobacco or other Yes substances Smoking Status Never smoker Is Patient Diabetic No Functional Assessment Recent Decline in Ability to Perform Bathing, Transferring WC - Nurse 1 - General Ulcer Measurement Start: 09/25/23 09:55 Freq: Status: Active Protocol: Activity Type Activity Date Activity User E-sign Co-sign Detail Recorded Client Recorded Date Recorded By Document 09/25/23 10:02 KW Desktop 09/25/23 10:14 KW 09/25/23 10:02 Wound Center Nurse 1 #2 ABD -Combined with (Name of Wound-Exactly 5.6 as it is documented) -Current Size (cm) - Length 7 -Current Size (cm) - Width 0.2 -Total Square Cm 1.4 -Date of Last Picture (Recall this 09/25/23 field) -Photo Taken Yes -Exudate Amt Medium -Exudate Type Serosanguineous -Wound Margin Distinct, Outline Attached -Granulation Amt Large (67-100%) -Granulation Quality Red -Necrosis Amt Small (1-33%) -Necrotic Tissue Type Adherent Slough -Texture (Sera-wound Skin Appearance) Assessed -Moisture (Sera-wound Skin Appearance) Assessed -Color (Sera-wound Skin Appearance) Assessed -Temperature (Sera-wound Skin No Abnormality Appearance) (Pt Warm) -Ulcer Cleansing Soap and Water -Foul Odor after Cleansing No -Anesthetic Used 5% Lidocaine Gel WC - Nurse 2 - General Ulcer CM Notes Start: 09/25/23 09:55 Freq: Status: Active Protocol: Activity Type Activity Date Activity User E-sign Co-sign Detail Recorded Client Recorded Date Recorded By Document 09/25/23 10:35 Laptop 09/25/23 10:49 09/25/23 10:35 Wound Center Nurse 2 4-right side abd -Time 10:46 -Correct Patient Yes -Correct Side, Site, Position Yes -Correct Procedure Yes -Procedure Performed Yes -Type of Procedure Debridement -Clinical Debridement Subcutaneous -Tissue Removed Subcutaneous -Post Debridement (cm) - Length 2.3 -Post Debridement (cm) - Width 2.7 -Post Debridement (cm) - Depth 0.2 -Total Square (Post) (cm) 6.21 -Area of Debridement (cm) - Length 2.3 -Area of Debridement (cm) - Width 2.7 -Total Square (Area) (cm) 6.21 -Tunneling No -Undermining/Tunneling No -Circular Undermining No -Wound/Ulcer Outcome Not Healed -Ulcer Cleansing Rinsed/ Irrigated with Saline -Foul Odor after Cleansing No -Bioengineered Tissue No -Bleeding Controlled with Pressure -Treatment Response Procedure Tolerated Well -Offloading No -Debridement - Subq, 1st 20sq cm No 3-left side abd -Time 10:45 -Correct Patient Yes -Correct Side, Site, Position Yes -Correct Procedure Yes -Procedure Performed Yes -Type of Procedure Debridement -Clinical Debridement Subcutaneous -Tissue Removed Subcutaneous -Post Debridement (cm) - Length 3.0 -Post Debridement (cm) - Width 2.0 -Post Debridement (cm) - Depth 0.2 -Total Square (Post) (cm) 6.00 -Area of Debridement (cm) - Length 3.0 -Area of Debridement (cm) - Width 2.0 -Total Square (Area) (cm) 6.00 -Tunneling No -Undermining/Tunneling No -Circular Undermining No -Wound/Ulcer Outcome Not Healed -Ulcer Cleansing Rinsed/ Irrigated with Saline -Foul Odor after Cleansing No -Bioengineered Tissue No -Bleeding Controlled with Pressure -Treatment Response Procedure Tolerated Well -Offloading No -Debridement - Subq, 1st 20sq cm No #2 ABD -Time 10:36 -Correct Patient Yes -Correct Side, Site, Position Yes -Correct Procedure Yes -Procedure Performed Yes -Type of Procedure Debridement -Clinical Debridement Subcutaneous -Tissue Removed Subcutaneous -Post Debridement (cm) - Length 5.7 -Post Debridement (cm) - Width 7 -Post Debridement (cm) - Depth 0.1 -Total Square (Post) (cm) 39.9 -Area of Debridement (cm) - Length 5.7 -Area of Debridement (cm) - Width 7 -Total Square (Area) (cm) 39.9 -Tunneling No -Undermining/Tunneling No -Circular Undermining No -Wound/Ulcer Outcome Not Healed -Ulcer Cleansing Rinsed/ Irrigated with Saline -Foul Odor after Cleansing No -Bioengineered Tissue No -Bleeding Controlled with Pressure -Treatment Response Procedure Tolerated Well -Offloading No -Debridement - Subq, 1st 20sq cm Yes -Debridement, SubQ, ea addt'l 20sq cm 2 or part thereof Pain Scale: 0-10 Numeric Is Patient Pain Free? Yes WC - Nurse 3 - General Ulcer D/C NN Start: 09/25/23 09:55 Freq: Status: Active Protocol: Activity Type Activity Date Activity User E-sign Co-sign Detail Recorded Client Recorded Date Recorded By Document 09/25/23 11:07 KW Desktop 09/25/23 11:10 KW 09/25/23 11:07 Wound Care Center Nurse 3 4-right side abd -Primary Dressing Applied Silvercel -Primary Dressing Covered/Secured with Dry Gauze, Secured with Tape -Silvercel 1 3-left side abd -Primary Dressing Covered/Secured with Dry Gauze, Secured with Tape #2 ABD -Primary Dressing Applied Silvercel -Primary Dressing Covered/Secured with Dry Gauze, Secured with Tape -Silvercel 1 Pain Scale: 0-10 Numeric Is Patient Pain Free? Yes Additional Wound Wound debrided: lateral abdominal ulcer in skin fold Laterality: Right Wound Grade/Stage: Stage III Type of Debridement: Excisional debridement Anesthesia Used: Cetacaine Depth: Down to and including healthy tissue Percentage of wound debrided: 100 Instrument Used: 5mm curette Tissue Removed: Non viable tissue and slough Severity: Fat Layer Exposed Amount of bleeding with debridement: Mild Bleeding Controlled with: Pressure and Compression and gauze Patient tolerated procedure: Patient tolerated procedure well Additional Wound Wound debrided: lateral abdominal ulcer Laterality: Left Wound Grade/Stage: Stage III Type of Debridement: Excisional debridement Depth: in the subcutaneous layer Percentage of wound debrided: 100 Instrument Used: 5mm curette Tissue Removed: Non viable tissue and slough Severity: Fat Layer Exposed Amount of bleeding with debridement: Mild Bleeding Controlled with: Compression and gauze Patient tolerated procedure: Patient tolerated procedure well Charges/Coding Visit Charges Office Visits / Consults: [id number] OV L4 Est 30min (25 modifier) Procedures Integumentary [id number]: [id number] Silvia subq tissue 20 sq cm/< Add On Codes: 80744 Silvia subq tissue add-on (x2) Assessment/Plan Assessment/Plan (1) Skin ulcer of abdominal wall with fat layer exposed: CODE(S): L98.492 - Non-pressure chronic ulcer of skin of other sites with fat layer exposed (2) Obesity: CODE(S): E66.9 - Obesity, unspecified QUALIFIERS: Body mass index: BMI 70 or greater Obesity classification: adult class 3 (BMI >= 40) Obesity type: due to excess calories Serious obesity comorbidity presence: with serious comorbidity Qualified Code(s): E66.01 - Morbid (severe) obesity due to excess calories; Z68.45 - Body mass index [BMI] 70 or greater, adult (3) Umbilicus discharge: CODE(S): R19.8 - Other specified symptoms and signs involving the digestive system and abdomen (4) Yeast infection of the skin: CODE(S): B37.2 - Candidiasis of skin and nail PLAN: Plan Patient evaluated at the wound healing center today. Wound care for the ulcers on her right and left lateral abdomen and the lower abdomen/pannus area place Silvercel/silver alginate covered with gauze/ABD daily to these ulcers after washing with soap and water. For her umbilicus, will start placing a strip of 1/4 Iodoform gauze to help absorb the moisture and prevent maceration and skin rubbing against itself. For the erythema in her skin fold, will order nystatin powder twice daily. She should wash the area and dry it well daily before applying powder. Instructed to stop using the Ketoconozole cream. Encouraged her to try and elevate her pannus on a pillow so that some of the swelling may decrease in the area that is most dependent. She will follow up one week. Instructed to call if she has any questions or concerns.
[2023-10-02 09:48] VITALS: BP 150/55; PULSE 69; RESP 18; TEMP 36.3; BMI 72.0
--- NOTE | 2023-10-02 12:06 | PCM.WC.PN ---
History of Present Illness Date of Service: 10/02/23 Chief Complaint: Ulcer on abdomen and leaky belly button. History of Wound: Patient is a 48-year-old female who presented on her pannus. She states that it was just noticed 1 to 2 weeks ago. She is obese and has a difficult time walking due to knee pain. She is able to transfer to and from her wheelchair. She states she is still able to drive. She states that she was bathing a couple weeks ago and discovered this ulcer. She states that it does have drainage. She has been covering it with a disposable pad to absorb the drainage. She also states that she has issues with drainage from her umbilicus. It will sometimes have a strong odor and also will bleed on occasion. She states she has seen dermatology and a general surgeon about this and they stated there was not much to do for this. Dermatology has put her on Ketoconazole cream for rashes in skin folds, that she has not recently been using. While examining her it was discovered that she also has an ulcer on her right lateral abdomen and her left lateral abdomen in a skin fold. She states she has a hard time bathing herself due to the weight of her pannus. She has a history of hypothyroidism, pre diabetes, polycystic ovary, asthma, sleep apnea, an ulcer on her left lower leg, and right knee arthritis. She comes in today for further evaluation of her ulcer. She denies fever, chills, nausea or vomiting. Progress of Wound: Lower abdominal/pannus ulcer is a beefy pink today. It looks better compared to last week. In the area where this ulcer is located, there is pitting edema present, since this is the area of most dependency. The ulcers on her left lateral abdomen and right lateral abdomen in the pannus skin fold are smaller. They are beefy pink in color. She has not been able to place iodoform gauze into umbilicus because she did not have any cotton swab applicators to help place the guaze. Objective Data Objective Data Vital Signs: Vital Signs Temp Pulse Resp BP O2 Del Method 97.3 F L 69 18 150/55 H Room Air 10/02/23 09:48 10/02/23 09:48 10/02/23 09:48 10/02/23 09:48 10/02/23 09:48 Oxygen Delivery Method Room Air Weight: 433 lb Body Mass Index (BMI) 72.0 Charges/Coding Procedures Integumentary 111xxx-113xx: [id number] Silvia subq tissue 20 sq cm/< Add On Codes: 12220 Silvia subq tissue add-on (x1) Debridement Note Debridement Note Wound debrided: Lower abdominal pannus Laterality: Not Applicable Wound Grade/Stage: Stage III Type of Debridement: Excisional debridement Anesthesia Used: Cetacaine Depth: Down to and including healthy tissue and in the subcutaneous layer Percentage of wound debrided: 100 Instrument Used: 7mm curette Tissue Removed: Non viable tissue and slough Severity: Fat Layer Exposed Amount of bleeding with debridement: Mild Bleeding Controlled with: Compression and gauze Patient tolerated procedure: Patient tolerated procedure well Post-Debridement Measurements and Additional Note: Post-Debridement Measurements/Treatment WC - Nurse 1 - General Ulcer Assessment Start: 09/25/23 09:55 Freq: Status: Active Protocol: [facility] Activity Type Activity Date Activity User E-sign Co-sign Detail Recorded Client Recorded Date Recorded By Document 09/25/23 10:02 [employer] 09/25/23 10:14 KW Document 10/02/23 09:48 KW [employer] 10/02/23 09:58 KW 09/25/23 10/02/23 10:02 09:48 WC - Today's Visit Information Type of service Initial Visit Follow-up Visit (Physician/[employer] ) Arrival Mode Wheelchair Wheelchair Accompanied by roommate- Alpa Patient Identification Verified (Name & Yes ) Height and Weight Height 5 ft 5 in Weight 433 lb Weight in Pounds 433.0 lbs Body Mass Index (BMI) 72.0 72.0 BMI Classification Obese Obese BSA - Shukri 2.75 Vital Signs Temperature (97.8 F-99.1 F) 95.9 F L 97.3 F L Temperature Source Temporal Temporal Pulse Rate (60-100) 78 69 Pulse Location Monitor Monitor Respiratory Rate (12-18) 18 18 Respiratory rate source Observation Observation Oxygen Delivery Method Room Air Room Air Blood Pressure (90/60-120/80) 167/86 H 150/55 H Blood Pressure Mean (mm Hg) 113 86 Source Monitor Monitor Position Sitting Semi-Fowlers Blood Pressure Location Left Forearm Left Arm History Since Last Visit- (Skip if this is Patient's initial visit) Have you changed medications since your No last visit? Any new allergies or adverse reactions No Had a fall/change in ADL's that may No increase risk of falls Signs or symptoms of abuse and/or No neglect since last visit Have you been in the hospital since your No last visit? Has dressing in place as prescribed Yes Has compression in place as prescribed N/A Has offloadiing in place as prescribed N/A Experienced any changes in pain level or No management Left Footwear Regular Shoe Regular Shoe Right Footwear Regular Shoe Regular Shoe Pain Scale: 0-10 Numeric Is Patient Pain Free? Yes Yes Communication Assessment Preferred language Greenlandic Able to Read Yes Able to Write Yes Communication Tools None Caregiver Communication Skills No Impairment Impairment Right Hearing Abillity Normal Left Hearing Abillity Normal Visual Assistive Devices None Teaching Assessment Preferences Verbal,Written, Demonstration Barriers to Learning None Readiness To Learn Excellent Willingness to Engage in Self Management High Activies Readiness to Engage in Self Management High Activities Anxiety Level Calm Cooperation Cooperative Perception Coherent Interest in Health Problem Asks Questions Education Importance Acknowledges Need Does Patient Smoke tobacco or other Yes substances Smoking Status Never smoker Is Patient Diabetic No Functional Assessment Recent Decline in Ability to Perform Bathing, Transferring WC - Nurse 1 - General Ulcer Measurement Start: 09/25/23 09:55 Freq: Status: Active Protocol: Activity Type Activity Date Activity User E-sign Co-sign Detail Recorded Client Recorded Date Recorded By Document 09/25/23 10:02 KW [employer] 09/25/23 10:14 KW Document 10/02/23 09:48 [employer] 10/02/23 09:58 KW 09/25/23 10/02/23 10:02 09:48 Wound Center Nurse 1 4-right side abd -Current Size (cm) - Length 1.4 -Current Size (cm) - Width 1.5 -Current Size (cm) - Depth 0.1 -Total Square Cm 2.10 -Exudate Amt Medium -Exudate Type Serosanguineous -Wound Margin Distinct, Outline Attached -Granulation Amt Large (67-100%) -Granulation Quality Red -Texture (Sera-wound Skin Appearance) Assessed,Rash -Moisture (Sera-wound Skin Appearance) Assessed -Color (Sera-wound Skin Appearance) Assessed, Erythema -Ulcer Cleansing Soap and Water -Anesthetic Used 4% Lidocaine Solution 3-left side abd -Current Size (cm) - Length 2 -Current Size (cm) - Width 1.6 -Current Size (cm) - Depth 0.1 -Total Square Cm 3.2 -Exudate Amt Small -Exudate Type Serosanguineous -Wound Margin Distinct, Outline Attached -Granulation Amt Large (67-100%) -Granulation Quality Red -Texture (Sera-wound Skin Appearance) Assessed -Moisture (Sera-wound Skin Appearance) Assessed -Color (Sera-wound Skin Appearance) Assessed -Temperature (Sera-wound Skin No Abnormality Appearance) (Pt Warm) -Ulcer Cleansing Soap and Water -Anesthetic Used 4% Lidocaine Solution #2 ABD -Combined with (Name of Wound-Exactly 5.6 as it is documented) -Current Size (cm) - Length 7 5.7 -Current Size (cm) - Width 0.2 6.2 -Current Size (cm) - Depth 0.1 -Total Square Cm 1.4 35.34 -Date of Last Picture (Recall this 09/25/23 field) -Photo Taken Yes -Exudate Amt Medium Large -Exudate Type Serosanguineous Serosanguineous -Wound Margin Distinct, Distinct, Outline Outline Attached Attached -Granulation Amt Large (67-100%) Medium (34-66%) -Granulation Quality Red Red -Necrosis Amt Small (1-33%) Small (1-33%) -Necrotic Tissue Type Adherent Slough Adherent Slough -Texture (Sera-wound Skin Appearance) Assessed Assessed -Moisture (Sera-wound Skin Appearance) Assessed Assessed -Color (Sera-wound Skin Appearance) Assessed Assessed -Temperature (Sera-wound Skin No Abnormality No Abnormality Appearance) (Pt Warm) (Pt Warm) -Ulcer Cleansing Soap and Water Soap and Water -Foul Odor after Cleansing No -Anesthetic Used 5% Lidocaine 4% Lidocaine Gel Solution WC - Nurse 2 - General Ulcer CM Notes Start: 09/25/23 09:55 Freq: Status: Active Protocol: Activity Type Activity Date Activity User E-sign Co-sign Detail Recorded Client Recorded Date Recorded By Document 09/25/23 10:35 Laptop 09/25/23 10:49 Document 10/02/23 10:24 Laptop 10/02/23 10:33 JF 09/25/23 10/02/23 10:35 10:24 Wound Center Nurse 2 4-right side abd -Time 10:46 10:25 -Correct Patient Yes Yes -Correct Side, Site, Position Yes Yes -Correct Procedure Yes Yes -Procedure Performed Yes Yes -Type of Procedure Debridement Debridement -Clinical Debridement Subcutaneous Subcutaneous -Tissue Removed Subcutaneous Subcutaneous -Post Debridement (cm) - Length 2.3 1.8 -Post Debridement (cm) - Width 2.7 2.0 -Post Debridement (cm) - Depth 0.2 0.1 -Total Square (Post) (cm) 6.21 3.60 -Area of Debridement (cm) - Length 2.3 1.8 -Area of Debridement (cm) - Width 2.7 2.0 -Total Square (Area) (cm) 6.21 3.60 -Tunneling No No -Undermining/Tunneling No No -Circular Undermining No No -Wound/Ulcer Outcome Not Healed Not Healed -Ulcer Cleansing Rinsed/ Rinsed/ Irrigated with Irrigated with Saline Saline -Foul Odor after Cleansing No No -Bioengineered Tissue No No -Bleeding Controlled with Pressure Pressure -Treatment Response Procedure Procedure Tolerated Well Tolerated Well -Offloading No No -Debridement - Subq, 1st 20sq cm No No 3-left side abd -Time 10:45 10:25 -Correct Patient Yes Yes -Correct Side, Site, Position Yes Yes -Correct Procedure Yes Yes -Procedure Performed Yes Yes -Type of Procedure Debridement Debridement -Clinical Debridement Subcutaneous Subcutaneous -Tissue Removed Subcutaneous Subcutaneous -Post Debridement (cm) - Length 3.0 2.3 -Post Debridement (cm) - Width 2.0 1.5 -Post Debridement (cm) - Depth 0.2 0.1 -Total Square (Post) (cm) 6.00 3.45 -Area of Debridement (cm) - Length 3.0 2.3 -Area of Debridement (cm) - Width 2.0 1.5 -Total Square (Area) (cm) 6.00 3.45 -Tunneling No No -Undermining/Tunneling No No -Circular Undermining No No -Wound/Ulcer Outcome Not Healed Not Healed -Ulcer Cleansing Rinsed/ Rinsed/ Irrigated with Irrigated with Saline Saline -Foul Odor after Cleansing No No -Bioengineered Tissue No No -Bleeding Controlled with Pressure Pressure -Treatment Response Procedure Procedure Tolerated Well Tolerated Well -Offloading No No -Debridement - Subq, 1st 20sq cm No No #2 ABD -Time 10:36 10:30 -Correct Patient Yes Yes -Correct Side, Site, Position Yes Yes -Correct Procedure Yes Yes -Procedure Performed Yes Yes -Type of Procedure Debridement Debridement -Clinical Debridement Subcutaneous Subcutaneous -Tissue Removed Subcutaneous Subcutaneous -Post Debridement (cm) - Length 5.7 5.3 -Post Debridement (cm) - Width 7 7 -Post Debridement (cm) - Depth 0.1 0.1 -Total Square (Post) (cm) 39.9 37.1 -Area of Debridement (cm) - Length 5.7 5.3 -Area of Debridement (cm) - Width 7 7 -Total Square (Area) (cm) 39.9 37.1 -Tunneling No No -Undermining/Tunneling No No -Circular Undermining No No -Wound/Ulcer Outcome Not Healed Not Healed -Ulcer Cleansing Rinsed/ Rinsed/ Irrigated with Irrigated with Saline Saline -Foul Odor after Cleansing No No -Bioengineered Tissue No No -Bleeding Controlled with Pressure Pressure -Treatment Response Procedure Procedure Tolerated Well Tolerated Well -Offloading No No -Debridement - Subq, 1st 20sq cm Yes Yes -Debridement, SubQ, ea addt'l 20sq cm 2 1 or part thereof Pain Scale: 0-10 Numeric Is Patient Pain Free? Yes Yes WC - Nurse 3 - General Ulcer D/C NN Start: 09/25/23 09:55 Freq: Status: Active Protocol: Activity Type Activity Date Activity User E-sign Co-sign Detail Recorded Client Recorded Date Recorded By Document 09/25/23 11:07 KW Desktop 09/25/23 11:10 KW Document 10/02/23 10:38 KW Desktop 10/02/23 10:40 KW 09/25/23 10/02/23 11:07 10:38 Wound Care Center Nurse 3 4-right side abd -Primary Dressing Applied Silvercel Aquacel AG 4x4 -Primary Dressing Covered/Secured with Dry Gauze, Secured with Tape -Aquacel AG 4x4 1 -Silvercel 1 3-left side abd -Primary Dressing Applied Aquacel AG 4x4 -Primary Dressing Covered/Secured with Dry Gauze, Dry Gauze & Secured with Roll Gauze, Tape Secured with Tape -Aquacel AG 4x4 1 #2 ABD -Primary Dressing Applied Silvercel Aquacel AG 4x4 -Primary Dressing Covered/Secured with Dry Gauze, Secured with Tape -Aquacel AG 4x4 1 -Silvercel 1 Pain Scale: 0-10 Numeric Is Patient Pain Free? Yes Yes WC - Visit Discharge Discharge Condition Stable Ambulatory Status Ambulatory, Walker Transportation Private Auto Medication Reconcilliation completed & No provided to patient/care provider Clinical Summary of Care Provided Yes Additional Wound Wound debrided: lateral abdominal ulcer in skin fold Laterality: Right Wound Grade/Stage: Stage III Type of Debridement: Excisional debridement Anesthesia Used: Cetacaine Depth: Down to and including healthy tissue Percentage of wound debrided: 100 Instrument Used: 5mm curette Tissue Removed: Non viable tissue and slough Severity: Fat Layer Exposed Amount of bleeding with debridement: Mild Bleeding Controlled with: Pressure and Compression and gauze Patient tolerated procedure: Patient tolerated procedure well Additional Wound Wound debrided: lateral abdominal ulcer Laterality: Left Wound Grade/Stage: Stage III Type of Debridement: Excisional debridement Depth: in the subcutaneous layer Percentage of wound debrided: 100 Instrument Used: 5mm curette Tissue Removed: Non viable tissue and slough Severity: Fat Layer Exposed Amount of bleeding with debridement: Mild Bleeding Controlled with: Compression and gauze Patient tolerated procedure: Patient tolerated procedure well Assessment/Plan Assessment/Plan (1) Skin ulcer of abdominal wall with fat layer exposed: CODE(S): L98.492 - Non-pressure chronic ulcer of skin of other sites with fat layer exposed (2) Obesity: CODE(S): E66.9 - Obesity, unspecified QUALIFIERS: Body mass index: BMI 70 or greater Obesity classification: adult class 3 (BMI >= 40) Obesity type: due to excess calories Serious obesity comorbidity presence: with serious comorbidity Qualified Code(s): E66.01 - Morbid (severe) obesity due to excess calories; Z68.45 - Body mass index [BMI] 70 or greater, adult (3) Umbilicus discharge: CODE(S): R19.8 - Other specified symptoms and signs involving the digestive system and abdomen (4) Yeast infection of the skin: CODE(S): B37.2 - Candidiasis of skin and nail PLAN: Plan Patient evaluated at the wound healing center today. Wound care for the ulcers on her right and left lateral abdomen and the lower abdomen/pannus area place Silvercel/silver alginate daily covered with gauze/ABD daily to these ulcers after washing with soap and water. Reinforced that she needs to cut the silver alginate to the size of the ulcers or she will run out of products to place on it. She verbalized understanding. For her umbilicus, will start placing a strip of 1/4 Iodoform gauze to help absorb the moisture and prevent maceration and skin rubbing against itself. For the erythema in her skin fold, continue nystatin powder. Encouraged her to try and elevate her pannus on a pillow so that some of the swelling may decrease in the area that is most dependent. She will follow up one week. Instructed to call if she has any questions or concerns.
--- NOTE | 2023-10-13 12:53 | WC ---
2.19.24 LOWER MED ABD
== END 2023-10-05 23:59 | disposition home or self-care (01) ==
LOC: WC 10:15
PROVIDERS: PCP Preventive Medicine Occupational Medicine; Referring Provider Physician Assistant; Visit Provider Nurse Practitioner Family
DX: L98.492 Non-pressure chronic ulcer of skin of other sites with fat layer exposed (principal); E66.01 Morbid (severe) obesity due to excess calories; Z68.45 Body mass index [BMI] 70 or greater, adult; R19.8 Other specified symptoms and signs involving the digestive system and abdomen; B37.2 Candidiasis of skin and nail; R26.2 Difficulty in walking, not elsewhere classified; I10 Essential (primary) hypertension; E78.5 Hyperlipidemia, unspecified; E03.9 Hypothyroidism, unspecified; Z79.84 Long term (current) use of oral hypoglycemic drugs; Z79.890 Hormone replacement therapy; Z79.899 Other long term (current) drug therapy
CPT/HCPCS: 11042; 11045; 99214; G0463

== ENCOUNTER 2023-10-24 14:00 | Outpatient (RCR) | payer MEDICAID, SELFPAY ==
[2023-10-06 00:20] VITALS: BP 150/55; PULSE 69; RESP 18; TEMP 36.3; BMI 72.0
[2023-10-09 10:13] VITALS: BP 142/55; PULSE 78; RESP 18; TEMP 36; BMI 72.0
--- NOTE | 2023-10-09 13:39 | PCM.WC.PN ---
History of Present Illness Date of Service: 10/09/23 Chief Complaint: Ulcer on abdomen and leaky belly button. History of Wound: Patient is a 48-year-old female who presented on her pannus. She states that it was just noticed 1 to 2 weeks ago. She is obese and has a difficult time walking due to knee pain. She is able to transfer to and from her wheelchair. She states she is still able to drive. She states that she was bathing a couple weeks ago and discovered this ulcer. She states that it does have drainage. She has been covering it with a disposable pad to absorb the drainage. She also states that she has issues with drainage from her umbilicus. It will sometimes have a strong odor and also will bleed on occasion. She states she has seen dermatology and a general surgeon about this and they stated there was not much to do for this. Dermatology has put her on Ketoconazole cream for rashes in skin folds, that she has not recently been using. While examining her it was discovered that she also has an ulcer on her right lateral abdomen and her left lateral abdomen in a skin fold. She states she has a hard time bathing herself due to the weight of her pannus. She has a history of hypothyroidism, pre diabetes, polycystic ovary, asthma, sleep apnea, an ulcer on her left lower leg, and right knee arthritis. Wound culture obtained 09/12/23 at [facility] and was positive for Pseudomonas aeruginosa, Proteus mirabilis, and Corynebacterium striatum. She was treated with Doxycycline before the culture results were back. Will start her on Levaquin. She comes in today for further evaluation of her ulcer. She denies fever, chills, nausea or vomiting. Progress of Wound: Lower abdominal/pannus ulcer is a beefy pink. There is not as much slough present. She has a new area distal to this that is excoriated, but not open yet. The ulcer is located in the most dependent portion of her pannus, there is pitting edema present. The ulcers on her left lateral abdomen and right lateral abdomen in the pannus skin fold are slightly smaller. They are beefy pink in color. She has been having difficulty placing iodoform gauze into her umbilicus stalk to help absorb the drainage that is present. I was going to culture her ulcers today when she stated that they were collected when she went [facility] and she was placed on Doxycycline. The wound cultures were positive for Pseudomonas aeruginosa, Proteus mirabilis, and Corynebacterium striatum. These bacteria are not sensitive to the Doxycycline that she was treated with prior to the culture results. Objective Data Objective Data Vital Signs: Vital Signs Temp Pulse Resp BP O2 Del Method 96.8 F L 78 18 142/55 H Room Air 10/09/23 10:13 10/09/23 10:13 10/09/23 10:13 10/09/23 10:13 10/09/23 10:13 Oxygen Delivery Method Room Air Weight: 433 lb Body Mass Index (BMI) 72.0 Charges/Coding Procedures Integumentary 111xxx-113xx: 65047 Silvia subq tissue 20 sq cm/< Add On Codes: 89414 Silvia subq tissue add-on (x1) Debridement Note Debridement Note Wound debrided: Lower abdominal pannus Laterality: Not Applicable Wound Grade/Stage: Stage III Type of Debridement: Excisional debridement Anesthesia Used: 5% Lidocaine Gel Depth: Down to and including healthy tissue and in the subcutaneous layer Percentage of wound debrided: 100 Instrument Used: 7mm curette Tissue Removed: Non viable tissue and slough Severity: Fat Layer Exposed Amount of bleeding with debridement: Mild Bleeding Controlled with: Compression and gauze Patient tolerated procedure: Patient tolerated procedure well Post-Debridement Measurements and Additional Note: Post-Debridement Measurements/Treatment - Nurse 1 - General Ulcer Assessment Start: 10/09/23 10:11 Freq: Status: Active Protocol: BALDEMAR Activity Type Activity Date Activity User E-sign Co-sign Detail Recorded Client Recorded Date Recorded By Document 10/09/23 10:13 KW Desktop 10/09/23 10:30 KW 10/09/23 10:13 - Today's Visit Information Type of service Follow-up Visit (Physician/SOCIETY REPORTER ) Arrival Mode Ambulatory, Wheelchair Patient Identification Verified (Name & Yes ) Height and Weight Body Mass Index (BMI) 72.0 BMI Classification Obese Vital Signs Temperature (97.8 F-99.1 F) 96.8 F L Temperature Source Temporal Pulse Rate (60-100) 78 Pulse Location Monitor Respiratory Rate (12-18) 18 Respiratory rate source Observation Oxygen Delivery Method Room Air Blood Pressure (90/60-120/80) 142/55 H Blood Pressure Mean (mm Hg) 84 Source Monitor Position Sitting Blood Pressure Location Left Forearm History Since Last Visit- (Skip if this is Patient's initial visit) Have you changed medications since your No last visit? Any new allergies or adverse reactions No Had a fall/change in ADL's that may No increase risk of falls Signs or symptoms of abuse and/or No neglect since last visit Have you been in the hospital since your No last visit? Has dressing in place as prescribed Yes Has compression in place as prescribed N/A Has offloadiing in place as prescribed N/A Experienced any changes in pain level or No management Left Footwear Regular Shoe Right Footwear Regular Shoe Pain Scale: 0-10 Numeric Is Patient Pain Free? Yes WC - Nurse 1 - General Ulcer Measurement Start: 10/09/23 10:11 Freq: Status: Active Protocol: Activity Type Activity Date Activity User E-sign Co-sign Detail Recorded Client Recorded Date Recorded By Document 10/09/23 10:13 KW Desktop 10/09/23 10:30 KW 10/09/23 10:13 Wound Center Nurse 1 5- distal medial lower abd -Current Size (cm) - Length 1 -Current Size (cm) - Width 0.9 -Current Size (cm) - Depth 0.1 -Total Square Cm 0.9 -Exudate Amt Small -Exudate Type Serosanguineous -Granulation Amt Large (67-100%) -Granulation Quality Red -Texture (Sera-wound Skin Appearance) Assessed -Moisture (Sera-wound Skin Appearance) Assessed -Color (Sera-wound Skin Appearance) Assessed, Erythema -Temperature (Sera-wound Skin No Abnormality Appearance) (Pt Warm) -Ulcer Cleansing Soap and Water -Anesthetic Used 4% Lidocaine Solution 4-right side abd -Current Size (cm) - Length 1.3 -Current Size (cm) - Width 2 -Current Size (cm) - Depth 0.1 -Total Square Cm 2.6 -Exudate Amt Small -Exudate Type Serosanguineous -Wound Margin Distinct, Outline Attached -Granulation Amt Large (67-100%) -Granulation Quality Red -Texture (Sera-wound Skin Appearance) Assessed -Moisture (Sera-wound Skin Appearance) Assessed -Color (Sera-wound Skin Appearance) Assessed -Temperature (Sera-wound Skin No Abnormality Appearance) (Pt Warm) -Ulcer Cleansing Soap and Water -Anesthetic Used 5% Lidocaine Gel 3-left side abd -Current Size (cm) - Length 1.7 -Current Size (cm) - Width 1 -Current Size (cm) - Depth 0.2 -Total Square Cm 1.7 -Exudate Amt Small -Exudate Type Serosanguineous -Wound Margin Distinct, Outline Attached -Granulation Amt Large (67-100%) -Granulation Quality Red -Texture (Sera-wound Skin Appearance) Assessed -Moisture (Sera-wound Skin Appearance) Assessed -Color (Sera-wound Skin Appearance) Assessed -Ulcer Cleansing Soap and Water -Anesthetic Used 5% Lidocaine Gel #2 ABD -Current Size (cm) - Length 5.7 -Current Size (cm) - Width 6.3 -Current Size (cm) - Depth 0.1 -Total Square Cm 35.91 -Exudate Amt Large -Exudate Type Serosanguineous -Wound Margin Distinct, Outline Attached -Granulation Amt Large (67-100%) -Granulation Quality Red -Texture (Sera-wound Skin Appearance) Assessed,Rash -Moisture (Sera-wound Skin Appearance) Assessed -Color (Sera-wound Skin Appearance) Assessed -Ulcer Cleansing Soap and Water -Anesthetic Used 4% Lidocaine Solution WC - Nurse 2 - General Ulcer CM Notes Start: 10/09/23 10:11 Freq: Status: Active Protocol: Activity Type Activity Date Activity User E-sign Co-sign Detail Recorded Client Recorded Date Recorded By Document 10/09/23 10:54 Laptop 10/09/23 11:00 10/09/23 10:54 Wound Center Nurse 2 5- distal medial lower abd -Correct Patient No -Correct Side, Site, Position No -Correct Procedure No -Procedure Performed No -Wound/Ulcer Outcome Not Healed 4-right side abd -Time 10:55 -Correct Patient Yes -Correct Side, Site, Position Yes -Correct Procedure Yes -Procedure Performed Yes -Type of Procedure Debridement -Clinical Debridement Subcutaneous -Tissue Removed Subcutaneous -Post Debridement (cm) - Length 1.5 -Post Debridement (cm) - Width 2 -Post Debridement (cm) - Depth 0.1 -Total Square (Post) (cm) 3.0 -Area of Debridement (cm) - Length 1.5 -Area of Debridement (cm) - Width 2 -Total Square (Area) (cm) 3.0 -Tunneling No -Undermining/Tunneling No -Circular Undermining No -Wound/Ulcer Outcome Not Healed -Ulcer Cleansing Rinsed/ Irrigated with Saline -Foul Odor after Cleansing No -Bioengineered Tissue No -Bleeding Controlled with Pressure -Treatment Response Procedure Tolerated Well -Offloading No -Debridement - Subq, 1st 20sq cm No 3-left side abd -Time 10:56 -Correct Patient Yes -Correct Side, Site, Position Yes -Correct Procedure Yes -Procedure Performed Yes -Type of Procedure Debridement -Clinical Debridement Subcutaneous -Tissue Removed Subcutaneous -Post Debridement (cm) - Length 2 -Post Debridement (cm) - Width 1 -Post Debridement (cm) - Depth 0.2 -Total Square (Post) (cm) 2 -Area of Debridement (cm) - Length 2 -Area of Debridement (cm) - Width 1 -Total Square (Area) (cm) 2 -Tunneling No -Undermining/Tunneling No -Circular Undermining No -Wound/Ulcer Outcome Not Healed -Ulcer Cleansing Rinsed/ Irrigated with Saline -Foul Odor after Cleansing No -Bioengineered Tissue No -Bleeding Controlled with Pressure -Treatment Response Procedure Tolerated Well -Offloading No -Debridement - Subq, 1st 20sq cm No #2 ABD -Time 10:58 -Correct Patient Yes -Correct Side, Site, Position Yes -Correct Procedure Yes -Procedure Performed Yes -Type of Procedure Debridement -Clinical Debridement Subcutaneous -Tissue Removed Subcutaneous -Post Debridement (cm) - Length 5.5 -Post Debridement (cm) - Width 6.2 -Post Debridement (cm) - Depth 0.1 -Total Square (Post) (cm) 34.10 -Area of Debridement (cm) - Length 5.5 -Area of Debridement (cm) - Width 6.2 -Total Square (Area) (cm) 34.10 -Tunneling No -Undermining/Tunneling No -Circular Undermining No -Wound/Ulcer Outcome Not Healed -Ulcer Cleansing Rinsed/ Irrigated with Saline -Foul Odor after Cleansing No -Bioengineered Tissue No -Bleeding Controlled with Pressure -Treatment Response Procedure Tolerated Well -Offloading No -Debridement - Subq, 1st 20sq cm Yes -Debridement, SubQ, ea addt'l 20sq cm 1 or part thereof Pain Scale: 0-10 Numeric Is Patient Pain Free? Yes WC - Nurse 3 - General Ulcer D/C NN Start: 10/09/23 10:11 Freq: Status: Active Protocol: Activity Type Activity Date Activity User E-sign Co-sign Detail Recorded Client Recorded Date Recorded By Document 10/09/23 11:15 DL Desktop 10/09/23 11:19 DL 10/09/23 11:15 Wound Care Center Nurse 3 4-right side abd -Ulcer Cleansing Rinsed/ Irrigated with Saline -Foul Odor after Cleansing No -Primary Dressing Applied Silvercel -Primary Dressing Covered/Secured with Dry Gauze, Secured with Tape -Other Covering abd -Silvercel 1 3-left side abd -Ulcer Cleansing Rinsed/ Irrigated with Saline -Foul Odor after Cleansing No -Primary Dressing Applied Silvercel -Other Dressing silvercell -Primary Dressing Covered/Secured with Dry Gauze, Secured with Tape -Other Covering ABD -Silvercel 1 #2 ABD -Ulcer Cleansing Rinsed/ Irrigated with Saline -Foul Odor after Cleansing No -Other Dressing silvercell -Other Covering ABD Treatment Response Procedure Tolerated Well Pain Scale: 0-10 Numeric Is Patient Pain Free? Yes WC - Visit Discharge Discharge Condition Stable Ambulatory Status Ambulatory, Wheelchair Transportation Private Auto Additional Wound Wound debrided: lateral abdominal ulcer in skin fold Laterality: Right Wound Grade/Stage: Stage III Type of Debridement: Excisional debridement Anesthesia Used: 5% Lidocaine Gel Depth: Down to and including healthy tissue and in the subcutaneous layer Percentage of wound debrided: 100 Instrument Used: 5mm curette Tissue Removed: Non viable tissue and slough Severity: Fat Layer Exposed Amount of bleeding with debridement: Mild Bleeding Controlled with: Pressure and Compression and gauze Patient tolerated procedure: Patient tolerated procedure well Additional Wound Wound debrided: lateral abdominal ulcer Laterality: Left Wound Grade/Stage: Stage III Type of Debridement: Excisional debridement Anesthesia Used: 5% Lidocaine Gel Depth: Down to and including healthy tissue and in the subcutaneous layer Percentage of wound debrided: 100 Instrument Used: 5mm curette Tissue Removed: Non viable tissue and slough Severity: Fat Layer Exposed Amount of bleeding with debridement: Mild Bleeding Controlled with: Compression and gauze Patient tolerated procedure: Patient tolerated procedure well Assessment/Plan Assessment/Plan (1) Skin ulcer of abdominal wall with fat layer exposed: CODE(S): L98.492 - Non-pressure chronic ulcer of skin of other sites with fat layer exposed (2) Obesity: CODE(S): E66.9 - Obesity, unspecified QUALIFIERS: Obesity type: due to excess calories Obesity classification: adult class 3 (BMI >= 40) Serious obesity comorbidity presence: with serious comorbidity Body mass index: BMI 70 or greater Qualified Code(s): E66.01 - Morbid (severe) obesity due to excess calories; Z68.45 - Body mass index [BMI] 70 or greater, adult (3) Umbilicus discharge: CODE(S): R19.8 - Other specified symptoms and signs involving the digestive system and abdomen (4) Yeast infection of the skin: CODE(S): B37.2 - Candidiasis of skin and nail PLAN: Plan Patient evaluated at the wound healing center today. Wound care for the ulcers on her right and left lateral abdomen and the lower abdomen/pannus area place Silvercel/silver alginate daily covered with gauze/ABD daily to these ulcers after washing with soap and water. For her umbilicus, will start placing a strip of 1/4 Iodoform gauze to help absorb the moisture and prevent maceration and skin rubbing against itself. The erythema in her skin folds appears to have improved with the Nystatin powder. I was going to culture her ulcers today when she stated that they were collected [facility] and she was placed on Doxycycline prophylactically. The wound cultures were positive for Pseudomonas aeruginosa, Proteus mirabilis, and Corynebacterium striatum. These bacteria are not sensitive to the Doxycycline. I will start her on Levaquin to cover the Pseudomonas and Proteus. The Corynebacterium is skin contaminant. Reinforced to her to try and elevate her pannus on a pillow so that some of the swelling may decrease in the area that is most dependent. She will follow up one week. Instructed to call if she has any questions or concerns.
[2023-10-24 14:32] VITALS: BP 170/74; PULSE 72; RESP 18; TEMP 35.8; BMI 72.0
--- NOTE | 2023-10-24 15:43 | PN.PCM_ITS ---
History of Present Illness Date of Service: 10/24/23 Chief Complaint: Ulcer on abdomen and leaky belly button. History of Wound: Patient is a 48-year-old female who presented on her pannus. She states that it was just noticed 1 to 2 weeks ago. She is obese and has a difficult time walking due to knee pain. She is able to transfer to and from her wheelchair. She states she is still able to drive. She states that she was bathing a couple weeks ago and discovered this ulcer. She states that it does have drainage. She has been covering it with a disposable pad to absorb the drainage. She also states that she has issues with drainage from her umbilicus. It will sometimes have a strong odor and also will bleed on occasion. She states she has seen dermatology and a general surgeon about this and they stated there was not much to do for this. Dermatology has put her on Ketoconazole cream for rashes in skin folds, that she has not recently been using. While examining her it was discovered that she also has an ulcer on her right lateral abdomen and her left lateral abdomen in a skin fold. She states she has a hard time bathing herself due to the weight of her pannus. She has a history of hypothyroidism, pre diabetes, polycystic ovary, asthma, sleep apnea, an ulcer on her left lower leg, and right knee arthritis. [facility]ound culture obtained 09/12/23 at [facility] and was positive for Pseudomonas aeruginosa, Proteus mirabilis, and Corynebacterium striatum. She was treated Doxycycline before the culture results were back. Will start her on Levaquin. She comes in today for further evaluation of her ulcer. She denies fever, chills, nausea or vomiting. Progress of Wound: Lower abdominal/pannus ulcer is a beefy pink and stable in size. The ulcer is located in the most dependent portion of her pannus, there is pitting edema pre sent. The ulcers on her left lateral abdomen and right lateral abdomen in the pannus skin fold are smaller in size. They are beefy pink in color. She has been having difficulty placing iodoform gauze into her umbilicus stalk to help absorb the drainage that is present. Objective Data Objective Data Vital Signs: Vital Signs Temp Pulse Resp BP O2 Del Method 96.4 F L 72 18 170/74 H Room Air 10/24/23 14:32 10/24/23 14:32 10/24/23 14:32 10/24/23 14:32 10/09/23 10:13 Oxygen Delivery Method Room Air Weight: 433 lb Body Mass Index (BMI) 72.0 Charges/Coding Procedures Integumentary 111xxx-113xx: [id number] Silvia subq tissue 20 sq cm/< Add On Codes: 13512 Silvia subq tissue add-on (x1) Debridement Note Debridement Note Wound debrided: Lower abdominal pannus Laterality: Not Applicable Wound Grade/Stage: Stage III Type of Debridement: Excisional debridement Anesthesia Used: 5% Lidocaine Gel Depth: Down to and including healthy tissue and in the subcutaneous layer Percentage of wound debrided: 100 Instrument Used: 7mm curette Tissue Removed: Non viable tissue and slough Severity: Fat Layer Exposed Amount of bleeding with debridement: Mild Bleeding Controlled with: Compression and gauze Patient tolerated procedure: Patient tolerated procedure well Post-Debridement Measurements and Additional Note: Post-Debridement Measurements/Treatment - Nurse 1 - General Ulcer Assessment Start: 10/09/23 10:11 Freq: Status: Active Protocol: BALDEMAR Activity Type Activity Date Activity User E-sign Co-sign Detail Recorded Client Recorded Date Recorded By Document 10/09/23 10:13 KW Desktop 10/09/23 10:30 KW Document 10/24/23 14:32 RB Desktop 10/24/23 14:45 RB 10/09/23 10/24/23 10:13 14:32 - Today's Visit Information Type of service Follow-up Visit Follow-up Visit (Physician/EDUCATION AND TRAINING MANAGER (Physician/EDUCATION AND TRAINING MANAGER ) ) Arrival Mode Ambulatory, Wheelchair Wheelchair Transfer Assistance None Patient Identification Verified (Name & Yes Yes ) Patient Requires Transmission-Based No Precautions Height and Weight Body Mass Index (BMI) 72.0 72.0 BMI Classification Obese Obese Vital Signs Temperature (97.8 F-99.1 F) 96.8 F L 96.4 F L Temperature Source Temporal Temporal Pulse Rate (60-100) 78 72 Pulse Location Monitor Monitor Respiratory Rate (12-18) 18 18 Respiratory rate source Observation Observation Oxygen Delivery Method Room Air Blood Pressure (90/60-120/80) 142/55 H 170/74 H Blood Pressure Mean (mm Hg) 84 106 Source Monitor Monitor Position Sitting Semi-Fowlers Blood Pressure Location Left Forearm Left Arm History Since Last Visit- (Skip if this is Patient's initial visit) Have you changed medications since your No No last visit? Any new allergies or adverse reactions No No Had a fall/change in ADL's that may No No increase risk of falls Signs or symptoms of abuse and/or No No neglect since last visit Have you been in the hospital since your No No last visit? Has dressing in place as prescribed Yes Yes Has compression in place as prescribed N/A No Has offloadiing in place as prescribed N/A No Experienced any changes in pain level or No No management Left Footwear Regular Shoe Right Footwear Regular Shoe Pain Scale: 0-10 Numeric Is Patient Pain Free? Yes Yes WC - Nurse 1 - General Ulcer Measurement Start: 10/09/23 10:11 Freq: Status: Active Protocol: Activity Type Activity Date Activity User E-sign Co-sign Detail Recorded Client Recorded Date Recorded By Document 10/09/23 10:13 KW Desktop 10/09/23 10:30 KW Document 10/24/23 14:32 RB Desktop 10/24/23 14:45 RB 10/09/23 10/24/23 10:13 14:32 Wound Center Nurse 1 5- distal medial lower abd -Current Size (cm) - Length 1 -Current Size (cm) - Width 0.9 -Current Size (cm) - Depth 0.1 -Total Square Cm 0.9 -Exudate Amt Small -Exudate Type Serosanguineous -Granulation Amt Large (67-100%) -Granulation Quality Red -Texture (Sera-wound Skin Appearance) Assessed -Moisture (Sera-wound Skin Appearance) Assessed -Color (Sera-wound Skin Appearance) Assessed, Erythema -Temperature (Sera-wound Skin No Abnormality Appearance) (Pt Warm) -Ulcer Cleansing Soap and Water -Anesthetic Used 4% Lidocaine Solution 4-right side abd -Combined with other wound No -Current Size (cm) - Length 1.3 1.2 -Current Size (cm) - Width 2 1.6 -Current Size (cm) - Depth 0.1 0.1 -Total Square Cm 2.6 1.92 -Tunneling No -Undermining/Tunneling No -Circular Undermining No -Exudate Amt Small Medium -Exudate Type Serosanguineous Serosanguineous -Wound Margin Distinct, Distinct, Outline Outline Attached Attached -Granulation Amt Large (67-100%) Medium (34-66%) -Granulation Quality Red [place] -Slough/Fibrin Yes -Necrosis Amt Medium (34-66%) -Necrotic Tissue Type Adherent Slough -Structure Exposed N/A -Texture (Sera-wound Skin Appearance) Assessed Assessed, Excoriation -Moisture (Sera-wound Skin Appearance) Assessed Assessed -Color (Sera-wound Skin Appearance) Assessed Assessed -Temperature (Sera-wound Skin No Abnormality No Abnormality Appearance) (Pt Warm) (Pt Warm) -Tenderness on Palpation (Sera-wound No Skin Appearance) -Ulcer Cleansing Soap and Water Wound Cleanser -Foul Odor after Cleansing No -Anesthetic Used 5% Lidocaine 5% Lidocaine Gel Gel 3-left side abd -Combined with other wound No -Current Size (cm) - Length 1.7 0.8 -Current Size (cm) - Width 1 0.8 -Current Size (cm) - Depth 0.2 0.1 -Total Square Cm 1.7 0.64 -Tunneling No -Undermining/Tunneling No -Circular Undermining No -Exudate Amt Small Medium -Exudate Type Serosanguineous Serosanguineous -Wound Margin Distinct, Distinct, Outline Outline Attached Attached -Granulation Amt Large (67-100%) Medium (34-66%) -Granulation Quality Red [place] -Slough/Fibrin Yes -Necrosis Amt Medium (34-66%) -Necrotic Tissue Type Adherent Slough -Structure Exposed N/A -Texture (Sera-wound Skin Appearance) Assessed Assessed, Excoriation -Moisture (Sera-wound Skin Appearance) Assessed Assessed -Color (Sera-wound Skin Appearance) Assessed Not Assessed -Temperature (Sera-wound Skin No Abnormality Appearance) (Pt Warm) -Tenderness on Palpation (Sera-wound No Skin Appearance) -Ulcer Cleansing Soap and Water Wound Cleanser -Foul Odor after Cleansing No -Anesthetic Used 5% Lidocaine 5% Lidocaine Gel Gel #2 ABD -Combined with other wound No -Current Size (cm) - Length 5.7 6 -Current Size (cm) - Width 6.3 6.5 -Current Size (cm) - Depth 0.1 0.1 -Total Square Cm 35.91 39.0 -Tunneling No -Undermining/Tunneling No -Circular Undermining No -Exudate Amt Large Medium -Exudate Type Serosanguineous Serosanguineous -Wound Margin Distinct, Distinct, Outline Outline Attached Attached -Granulation Amt Large (67-100%) Medium (34-66%) -Granulation Quality Red [place] -Slough/Fibrin Yes -Necrosis Amt Medium (34-66%) -Necrotic Tissue Type Adherent Slough -Structure Exposed N/A -Texture (Sera-wound Skin Appearance) Assessed,Rash Assessed, Localized Edema -Moisture (Sera-wound Skin Appearance) Assessed -Color (Sera-wound Skin Appearance) Assessed Assessed -Temperature (Sera-wound Skin No Abnormality Appearance) (Pt Warm) -Tenderness on Palpation (Sera-wound No Skin Appearance) -Ulcer Cleansing Soap and Water Wound Cleanser -Foul Odor after Cleansing No -Anesthetic Used 4% Lidocaine 5% Lidocaine Solution Gel WC - Nurse 2 - General Ulcer CM Notes Start: 10/09/23 10:11 Freq: Status: Active Protocol: Activity Type Activity Date Activity User E-sign Co-sign Detail Recorded Client Recorded Date Recorded By Document 10/09/23 10:54 [employer] 10/09/23 11:00 Document 10/24/23 15:21 [employer] 10/24/23 15:26 10/09/23 10/24/23 10:54 15:21 Wound Center Nurse 2 5- distal medial lower abd -Correct Patient No -Correct Side, Site, Position No -Correct Procedure No -Procedure Performed No -Wound/Ulcer Outcome Not Healed 4-right side abd -Time 10:55 15:22 -Correct Patient Yes Yes -Correct Side, Site, Position Yes Yes -Correct Procedure Yes Yes -Procedure Performed Yes Yes -Type of Procedure Debridement Debridement -Clinical Debridement Subcutaneous Subcutaneous -Tissue Removed Subcutaneous Subcutaneous -Post Debridement (cm) - Length 1.5 1.2 -Post Debridement (cm) - Width 2 1.2 -Post Debridement (cm) - Depth 0.1 0.1 -Total Square (Post) (cm) 3.0 1.44 -Area of Debridement (cm) - Length 1.5 1.2 -Area of Debridement (cm) - Width 2 1.2 -Total Square (Area) (cm) 3.0 1.44 -Tunneling No No -Undermining/Tunneling No -Circular Undermining No No -Wound/Ulcer Outcome Not Healed Not Healed -Ulcer Cleansing Rinsed/ Rinsed/ Irrigated with Irrigated with Saline Saline -Foul Odor after Cleansing No No -Bioengineered Tissue No No -Bleeding Controlled with Pressure Pressure -Treatment Response Procedure Procedure Tolerated Well Tolerated Well -Offloading No No -Debridement - Subq, 1st 20sq cm No No 3-left side abd -Time 10:56 15:22 -Correct Patient Yes Yes -Correct Side, Site, Position Yes Yes -Correct Procedure Yes Yes -Procedure Performed Yes Yes -Type of Procedure Debridement Debridement -Clinical Debridement Subcutaneous Subcutaneous -Tissue Removed Subcutaneous Subcutaneous -Post Debridement (cm) - Length 2 1.0 -Post Debridement (cm) - Width 1 0.8 -Post Debridement (cm) - Depth 0.2 0.2 -Total Square (Post) (cm) 2 0.80 -Area of Debridement (cm) - Length 2 1.0 -Area of Debridement (cm) - Width 1 0.8 -Total Square (Area) (cm) 2 0.80 -Tunneling No No -Undermining/Tunneling No No -Circular Undermining No No -Wound/Ulcer Outcome Not Healed Not Healed -Ulcer Cleansing Rinsed/ Rinsed/ Irrigated with Irrigated with Saline Saline -Foul Odor after Cleansing No No -Bioengineered Tissue No No -Bleeding Controlled with Pressure Pressure -Treatment Response Procedure Procedure Tolerated Well Tolerated Well -Offloading No No -Debridement - Subq, 1st 20sq cm No No #2 ABD -Time 10:58 15:23 -Correct Patient Yes Yes -Correct Side, Site, Position Yes Yes -Correct Procedure Yes Yes -Procedure Performed Yes Yes -Type of Procedure Debridement Debridement -Clinical Debridement Subcutaneous Subcutaneous -Tissue Removed Subcutaneous Subcutaneous -Post Debridement (cm) - Length 5.5 5.5 -Post Debridement (cm) - Width 6.2 6.0 -Post Debridement (cm) - Depth 0.1 0.1 -Total Square (Post) (cm) 34.10 33.00 -Area of Debridement (cm) - Length 5.5 5.5 -Area of Debridement (cm) - Width 6.2 6.0 -Total Square (Area) (cm) 34.10 33.00 -Tunneling No No -Undermining/Tunneling No No -Circular Undermining No No -Wound/Ulcer Outcome Not Healed Not Healed -Ulcer Cleansing Rinsed/ Rinsed/ Irrigated with Irrigated with Saline Saline -Foul Odor after Cleansing No No -Bioengineered Tissue No No -Bleeding Controlled with Pressure Pressure -Treatment Response Procedure Procedure Tolerated Well Tolerated Well -Offloading No No -Debridement - Subq, 1st 20sq cm Yes Yes -Debridement, SubQ, ea addt'l 20sq cm 1 1 or part thereof Pain Scale: 0-10 Numeric Is Patient Pain Free? Yes Yes - Nurse 3 - General Ulcer D/C NN Start: 10/09/23 10:11 Freq: Status: Active Protocol: Activity Type Activity Date Activity User E-sign Co-sign Detail Recorded Client Recorded Date Recorded By Document 10/09/23 11:15 DL Desktop 10/09/23 11:19 DL Document 10/24/23 15:33 KW Desktop 10/24/23 15:34 KW 10/09/23 10/24/23 11:15 15:33 Wound Care Center Nurse 3 4-right side abd -Ulcer Cleansing Rinsed/ Irrigated with Saline -Foul Odor after Cleansing No -Primary Dressing Applied Silvercel Silvercel -Primary Dressing Covered/Secured with Dry Gauze, Dry Gauze, Secured with Secured with Tape Tape -Other Covering abd -Silvercel 1 1 3-left side abd -Ulcer Cleansing Rinsed/ Irrigated with Saline -Foul Odor after Cleansing No -Primary Dressing Applied Silvercel -Other Dressing silvercell -Primary Dressing Covered/Secured with Dry Gauze, Dry Gauze, Secured with Secured with Tape Tape -Other Covering ABD -Silvercel 1 #2 ABD -Ulcer Cleansing Rinsed/ Irrigated with Saline -Foul Odor after Cleansing No -Other Dressing silvercell pt own drsg -Other Covering ABD Treatment Response Procedure Tolerated Well Pain Scale: 0-10 Numeric Is Patient Pain Free? Yes Yes WC - Visit Discharge Discharge Condition Stable Stable Ambulatory Status Ambulatory, Wheelchair Wheelchair Transportation Private Auto Private Auto Medication Reconcilliation completed & No provided to patient/care provider Clinical Summary of Care Provided Yes Additional Wound Wound debrided: lateral abdominal ulcer in skin fold Laterality: Right Wound Grade/Stage: Stage III Type of Debridement: Excisional debridement Anesthesia Used: 5% Lidocaine Gel Depth: Down to and including healthy tissue and in the subcutaneous layer Percentage of wound debrided: 100 Instrument Used: 5mm curette Tissue Removed: Non viable tissue and slough Severity: Fat Layer Exposed Amount of bleeding with debridement: Mild Bleeding Controlled with: Pressure and Compression and gauze Patient tolerated procedure: Patient tolerated procedure well Additional Wound Wound debrided: lateral abdominal ulcer Laterality: Left Wound Grade/Stage: Stage III Type of Debridement: Excisional debridement Anesthesia Used: 5% Lidocaine Gel Depth: Down to and including healthy tissue and in the subcutaneous layer Percentage of wound debrided: 100 Instrument Used: 5mm curette Tissue Removed: Non viable tissue and slough Severity: Fat Layer Exposed Amount of bleeding with debridement: Mild Bleeding Controlled with: Compression and gauze Patient tolerated procedure: Patient tolerated procedure well Assessment/Plan Assessment/Plan (1) Skin ulcer of abdominal wall with fat layer exposed: CODE(S): L98.492 - Non-pressure chronic ulcer of skin of other sites with fat layer exposed (2) Obesity: CODE(S): E66.9 - Obesity, unspecified QUALIFIERS: Obesity type: due to excess calories Obesity classification: adult class 3 (BMI >= 40) Serious obesity comorbidity presence: with serious comorbidity Body mass index: BMI 70 or greater Qualified Code(s): E66.01 - Morbid (severe) obesity due to excess calories; Z68.45 - Body mass index [BMI] 70 or greater, adult (3) Umbilicus discharge: CODE(S): R19.8 - Other specified symptoms and signs involving the dig estive system and abdomen (4) Yeast infection of the skin: CODE(S): B37.2 - Candidiasis of skin and nail PLAN: Plan Patient evaluated at the wound healing center today. Wound care for the ulcers on her right and left lateral abdomen and the lower abdomen/pannus area place Silvercel/silver alginate daily covered with gauze/ABD daily to these ulcers after washing with soap and water. For her umbilicus, will start placing a strip of 1/4 Iodoform gauze to help absorb the moisture and prevent maceration and skin rubbing against itself. The erythema in her skin folds appears to have improved with the Nystatin powder. I was going to culture her ulcers today when she stated that they were collected [facility] and she was placed on Doxycycline prophylactically. The wound cultures were positive for Pseudomonas aeruginosa, Proteus mirabilis, and Corynebacterium striatum. These bacteria are not sensitive to the Doxycycline. She has finished the Levaquin to cover the Pseudomonas and Proteus. The Corynebacterium is skin contaminant. Reinforced to her to try and elevate her pannus on a pillow so that some of the swelling may decrease in the area that is most dependent. She will follow up 2 weeks, since I will be out of town. Instructed to call if she has any questions or concerns.
== END 2023-11-05 23:59 | disposition home or self-care (01) ==
LOC: WC 14:00
PROVIDERS: PCP Preventive Medicine Occupational Medicine; Referring Provider Physician Assistant; Visit Provider Nurse Practitioner Family
DX: L98.492 Non-pressure chronic ulcer of skin of other sites with fat layer exposed (principal); E66.01 Morbid (severe) obesity due to excess calories; Z68.45 Body mass index [BMI] 70 or greater, adult; B37.2 Candidiasis of skin and nail; R73.03 Prediabetes; R19.8 Other specified symptoms and signs involving the digestive system and abdomen; E03.9 Hypothyroidism, unspecified; J45.909 Unspecified asthma, uncomplicated; G47.30 Sleep apnea, unspecified; M17.11 Unilateral primary osteoarthritis, right knee; R26.2 Difficulty in walking, not elsewhere classified; Z79.84 Long term (current) use of oral hypoglycemic drugs; Z79.890 Hormone replacement therapy; Z79.899 Other long term (current) drug therapy
CPT/HCPCS: 11042; 11045

== ENCOUNTER 2023-11-27 10:00 | Outpatient (RCR) | payer MEDICAID, SELFPAY ==
[2023-11-06 00:19] VITALS: BP 170/74; PULSE 72; RESP 18; TEMP 35.8; BMI 72.0
[2023-11-07 13:31] VITALS: BP 163/76; PULSE 77; RESP 18; TEMP 36.2; BMI 72.0
--- NOTE | 2023-11-07 16:20 | PCM.WC.PN ---
History of Present Illness Date of Service: 11/07/23 Chief Complaint: Ulcer on abdomen and leaky belly button. History of Wound: Patient is a 48-year-old female who presented on her pannus. She states that it was just noticed 1 to 2 weeks ago. She is obese and has a difficult time walking due to knee pain. She is able to transfer to and from her wheelchair. She states she is still able to drive. She states that she was bathing a couple weeks ago and discovered this ulcer. She states that it does have drainage. She has been covering it with a disposable pad to absorb the drainage. She also states that she has issues with drainage from her umbilicus. It will sometimes have a strong odor and also will bleed on occasion. She states she has seen dermatology and a general surgeon about this and they stated there was not much to do for this. Dermatology has put her on Ketoconazole cream for rashes in skin folds, that she has not recently been using. While examining her it was discovered that she also has an ulcer on her right lateral abdomen and her left lateral abdomen in a skin fold. She states she has a hard time bathing herself due to the weight of her pannus. She has a history of hypothyroidism, pre diabetes, polycystic ovary, asthma, sleep apnea, an ulcer on her left lower leg, and right knee arthritis. [facility]ound culture [facility]/23 [facility] and was positive for Pseudomonas aeruginosa, Proteus mirabilis, and Corynebacterium striatum. She was treated with Doxycycline before the culture results were back. Will start her on Levaquin. She comes in today for further evaluation of her ulcer. She denies fever, chills, nausea or vomiting. Progress of Wound: Lower abdominal/pannus ulcer is a beefy pink and stable in size. The ulcer is located in the most dependent portion of her pannus, there is pitting edema present. The ulcers on her left lateral abdomen and right lateral abdomen in the pannus skin fold are smaller in size. They are beefy pink in color. She has been placing iodoform gauze into her umbilicus stalk to help absorb the drainage that is present, she states that she is getting pink drainage from her umbilicus. Objective Data Objective Data Vital Signs: Vital Signs Temp Pulse Resp BP 97.2 F L 77 18 163/76 H 11/07/23 13:31 11/07/23 13:31 11/07/23 13:31 11/07/23 13:31 Weight: 433 lb Body Mass Index (BMI) 72.0 Charges/Coding Procedures Integumentary 111xxx-113xx: [id number] Silvia subq tissue 20 sq cm/< Add On Codes: [id number] Silvia subq tissue add-on (x1) Debridement Note Debridement Note Wound debrided: Lower abdominal pannus Laterality: Not Applicable Wound Grade/Stage: Stage III Type of Debridement: Excisional debridement Anesthesia Used: 5% Lidocaine Gel Depth: Down to and including healthy tissue and in the subcutaneous layer Percentage of wound debrided: 100 Instrument Used: 7mm curette Tissue Removed: Non viable tissue and slough Severity: Fat Layer Exposed Amount of bleeding with debridement: Mild Bleeding Controlled with: Compression and gauze Patient tolerated procedure: Patient tolerated procedure well Post-Debridement Measurements and Additional Note: Post-Debridement Measurements/Treatment WC - Nurse 1 - General Ulcer Assessment Start: 11/07/23 13:31 Freq: Status: Active Protocol: BALDEMAR Activity Type Activity Date Activity User E-sign Co-sign Detail Recorded Client Recorded Date Recorded By Document 11/07/23 13:31 RB Desktop 11/07/23 13:42 RB 11/07/23 13:31 - Today's Visit Information Type of service Follow-up Visit (Physician/[facility] ) Arrival Mode Ambulatory Transfer Assistance None Patient Identification Verified (Name & Yes ) Patient Requires Transmission-Based No Precautions Height and Weight Body Mass Index (BMI) 72.0 BMI Classification Obese Vital Signs Temperature (97.8 F-99.1 F) 97.2 F L Temperature Source Temporal Pulse Rate (60-100) 77 Pulse Location Monitor Respiratory Rate (12-18) 18 Respiratory rate source Observation Blood Pressure (90/60-120/80) 163/76 H Blood Pressure Mean (mm Hg) 105 Source Monitor Position Semi-Fowlers Blood Pressure Location Left Arm History Since Last Visit- (Skip if this is Patient's initial visit) Have you changed medications since your No last visit? Any new allergies or adverse reactions No Had a fall/change in ADL's that may No increase risk of falls Signs or symptoms of abuse and/or No neglect since last visit Have you been in the hospital since your No last visit? Has dressing in place as prescribed Yes Has compression in place as prescribed No Has offloadiing in place as prescribed No Experienced any changes in pain level or No management Pain Scale: 0-10 Numeric Is Patient Pain Free? Yes WC - Nurse 1 - General Ulcer Measurement Start: 11/07/23 13:31 Freq: Status: Active Protocol: Activity Type Activity Date Activity User E-sign Co-sign Detail Recorded Client Recorded Date Recorded By Document 11/07/23 13:31 RB Desktop 11/07/23 13:42 RB 11/07/23 13:31 Wound Center Nurse 1 4-right side abd -Combined with other wound No -Current Size (cm) - Length 0.5 -Current Size (cm) - Width 0.3 -Current Size (cm) - Depth 0.1 -Total Square Cm 0.15 -Tunneling No -Undermining/Tunneling No -Circular Undermining No -Exudate Amt Medium -Exudate Type Serosanguineous -Wound Margin Distinct, Outline Attached -Granulation Amt Medium (34-66%) -Granulation Quality [place] -Slough/Fibrin Yes -Necrosis Amt Medium (34-66%) -Necrotic Tissue Type Adherent Slough -Structure Exposed N/A -Texture (Sera-wound Skin Appearance) Assessed, Excoriation -Moisture (Sera-wound Skin Appearance) Assessed -Color (Sera-wound Skin Appearance) Assessed -Temperature (Sera-wound Skin No Abnormality Appearance) (Pt Warm) -Tenderness on Palpation (Sera-wound No Skin Appearance) -Ulcer Cleansing Wound Cleanser -Foul Odor after Cleansing Yes, Due to Product Use -Anesthetic Used 5% Lidocaine Gel 3-left side abd -Combined with other wound No -Current Size (cm) - Length 0.5 -Current Size (cm) - Width 0.5 -Current Size (cm) - Depth 0.1 -Total Square Cm 0.25 -Tunneling No -Undermining/Tunneling No -Circular Undermining No -Exudate Amt Medium -Exudate Type Serosanguineous -Wound Margin Distinct, Outline Attached -Granulation Amt Medium (34-66%) -Granulation Quality [place] -Slough/Fibrin Yes -Necrosis Amt Medium (34-66%) -Necrotic Tissue Type Adherent Slough -Structure Exposed N/A -Texture (Sera-wound Skin Appearance) Assessed, Excoriation -Moisture (Sera-wound Skin Appearance) Assessed -Color (Sera-wound Skin Appearance) Assessed -Temperature (Sera-wound Skin No Abnormality Appearance) (Pt Warm) -Tenderness on Palpation (Sera-wound No Skin Appearance) -Ulcer Cleansing Wound Cleanser -Foul Odor after Cleansing No -Anesthetic Used 5% Lidocaine Gel #2 ABD -Combined with other wound No -Current Size (cm) - Length 5.5 -Current Size (cm) - Width 6 -Current Size (cm) - Depth 0.1 -Total Square Cm 33.0 -Tunneling No -Undermining/Tunneling No -Circular Undermining No -Exudate Amt Large -Exudate Type Serosanguineous -Wound Margin Distinct, Outline Attached -Granulation Amt Medium (34-66%) -Granulation Quality [place] -Slough/Fibrin Yes -Necrosis Amt Medium (34-66%) -Necrotic Tissue Type Adherent Slough -Structure Exposed N/A -Texture (Sera-wound Skin Appearance) Assessed, Localized Edema -Moisture (Sera-wound Skin Appearance) Assessed -Color (Sera-wound Skin Appearance) Assessed, Erythema -Temperature (Sera-wound Skin No Abnormality Appearance) (Pt Warm) -Tenderness on Palpation (Sera-wound No Skin Appearance) -Ulcer Cleansing Wound Cleanser -Foul Odor after Cleansing No -Anesthetic Used 5% Lidocaine Gel WC - Nurse 2 - General Ulcer CM Notes Start: 11/07/23 13:31 Freq: Status: Active Protocol: Activity Type Activity Date Activity User E-sign Co-sign Detail Recorded Client Recorded Date Recorded By Document 11/07/23 13:51 CP Desktop 11/07/23 14:00 CP 11/07/23 13:51 Wound Center Nurse 2 4-right side abd -Time 13:53 -Correct Patient Yes -Correct Side, Site, Position Yes -Correct Procedure Yes -Procedure Performed Yes -Type of Procedure Debridement -Clinical Debridement Subcutaneous -Tissue Removed Subcutaneous -Post Debridement (cm) - Length 0.7 -Post Debridement (cm) - Width 0.7 -Post Debridement (cm) - Depth 0.1 -Total Square (Post) (cm) 0.49 -Area of Debridement (cm) - Length 0.7 -Area of Debridement (cm) - Width 0.7 -Total Square (Area) (cm) 0.49 -Tunneling No -Undermining/Tunneling No -Circular Undermining No -Wound/Ulcer Outcome Not Healed -Ulcer Cleansing Rinsed/ Irrigated with Saline -Foul Odor after Cleansing No -Bioengineered Tissue No -Bleeding Controlled with Pressure -Treatment Response Procedure Tolerated Well -Offloading No -Debridement - Subq, 1st 20sq cm No 3-left side abd -Time 13:56 -Correct Patient Yes -Correct Side, Site, Position Yes -Correct Procedure Yes -Procedure Performed Yes -Type of Procedure Debridement -Clinical Debridement Subcutaneous -Tissue Removed Subcutaneous -Post Debridement (cm) - Length 0.8 -Post Debridement (cm) - Width 0.6 -Post Debridement (cm) - Depth 0.1 -Total Square (Post) (cm) 0.48 -Area of Debridement (cm) - Length 0.8 -Area of Debridement (cm) - Width 0.6 -Total Square (Area) (cm) 0.48 -Tunneling No -Undermining/Tunneling No -Circular Undermining No -Wound/Ulcer Outcome Not Healed -Ulcer Cleansing Rinsed/ Irrigated with Saline -Foul Odor after Cleansing No -Bleeding Controlled with Pressure -Treatment Response Procedure Tolerated Well -Offloading No -Debridement - Subq, 1st 20sq cm No #2 ABD -Time 13:57 -Correct Patient Yes -Correct Side, Site, Position Yes -Correct Procedure Yes -Procedure Performed Yes -Type of Procedure Debridement -Clinical Debridement Subcutaneous -Tissue Removed Subcutaneous -Post Debridement (cm) - Length 5.4 -Post Debridement (cm) - Width 6.1 -Post Debridement (cm) - Depth 0.1 -Total Square (Post) (cm) 32.94 -Area of Debridement (cm) - Length 5.4 -Area of Debridement (cm) - Width 6.1 -Total Square (Area) (cm) 32.94 -Tunneling No -Undermining/Tunneling No -Circular Undermining No -Wound/Ulcer Outcome Not Healed -Ulcer Cleansing Rinsed/ Irrigated with Saline -Foul Odor after Cleansing No -Bioengineered Tissue No -Bleeding Controlled with Pressure -Treatment Response Procedure Tolerated Well -Offloading No -Debridement - Subq, 1st 20sq cm Yes -Debridement, SubQ, ea addt'l 20sq cm 1 or part thereof Pain Scale: 0-10 Numeric Is Patient Pain Free? Yes WC - Nurse 3 - General Ulcer D/C NN Start: 11/07/23 13:31 Freq: Status: Active Protocol: Activity Type Activity Date Activity User E-sign Co-sign Detail Recorded Client Recorded Date Recorded By Document 11/07/23 14:30 RB Desktop 11/07/23 14:32 RB 11/07/23 14:30 Wound Care Center Nurse 3 4-right side abd -Ulcer Cleansing Rinsed/ Irrigated with Saline -Other Dressing silvercel -Primary Dressing Covered/Secured with Dry Gauze, Secured with Tape -Silvercel 1 3-left side abd -Ulcer Cleansing Rinsed/ Irrigated with Saline -Other Dressing silvercel -Primary Dressing Covered/Secured with Dry Gauze, Secured with Tape #2 ABD -Other Dressing abd -Primary Dressing Covered/Secured with Dry Gauze,Dry Gauze & Roll Gauze,Secured with Tape Treatment Response Procedure Tolerated Well Pain Scale: 0-10 Numeric Is Patient Pain Free? Yes WC - Visit Discharge Discharge Condition Stable Ambulatory Status Wheelchair Transportation Private Auto Medication Reconcilliation completed & No provided to patient/care provider Clinical Summary of Care Provided Yes Additional Wound Wound debrided: lateral abdominal ulcer in skin fold Laterality: Right Wound Grade/Stage: Stage III Type of Debridement: Excisional debridement Anesthesia Used: 5% Lidocaine Gel Depth: Down to and including healthy tissue and in the subcutaneous layer Percentage of wound debrided: 100 Instrument Used: 3mm curette Tissue Removed: Non viable tissue and slough Severity: Fat Layer Exposed Amount of bleeding with debridement: Mild Bleeding Controlled with: Pressure and Compression and gauze Patient tolerated procedure: Patient tolerated procedure well Additional Wound Wound debrided: lateral abdominal ulcer Laterality: Left Wound Grade/Stage: Stage III Type of Debridement: Excisional debridement Anesthesia Used: 5% Lidocaine Gel Depth: Down to and including healthy tissue and in the subcutaneous layer Percentage of wound debrided: 100 Instrument Used: 3mm curette Tissue Removed: Non viable tissue and slough Severity: Fat Layer Exposed Amount of bleeding with debridement: Mild Bleeding Controlled with: Compression and gauze Patient tolerated procedure: Patient tolerated procedure well Assessment/Plan Assessment/Plan (1) Skin ulcer of abdominal wall with fat layer exposed: CODE(S): L98.492 - Non-pressure chronic ulcer of skin of other sites with fat layer exposed (2) Obesity: CODE(S): E66.9 - Obesity, unspecified QUALIFIERS: Obesity type: due to excess calories Obesity classification: adult class 3 (BMI >= 40) Serious obesity comorbidity presence: with serious comorbidity Body mass index: BMI 70 or greater Qualified Code(s): E66.01 - Morbid (severe) obesity due to excess calories; Z68.45 - Body mass index [BMI] 70 or greater, adult (3) Umbilicus discharge: CODE(S): R19.8 - Other specified symptoms and signs involving the digestive system and abdomen (4) Yeast infection of the skin: CODE(S): B37.2 - Candidiasis of skin and nail PLAN: Plan Patient evaluated at the wound healing center today. Wound care for the ulcers on her right and left lateral abdomen and the lower abdomen/pannus area place Silvercel/silver alginate daily covered with gauze/ABD daily to these ulcers after washing with soap and water. For her umbilicus, will continue placing a strip of 1/4 Iodoform gauze to help absorb the moisture and prevent maceration and skin rubbing against itself. Wound culture were [facility] and she was placed on Doxycycline prophylactically. The wound cultures were positive for Pseudomonas aeruginosa, Proteus mirabilis, and Corynebacterium striatum. These bacteria are not sensitive to the Doxycycline. She has finished the Levaquin to cover the Pseudomonas and Proteus. The Corynebacterium is skin contaminant. Reinforced to her to try and elevate her pannus on a pillow so that some of the swelling may decrease in the area that is most dependent. She has seen Dr. Mcgowan in his office to discuss a panniculectomy. This will be done in stages due to the size of her pannus and bleeding risks. Further imaging is needed first. She is scheduled to have an ultrasound of her abomen at [facility]. She is seeing them for potential bariatric surgery. She states that she is not able to get enough protein intake and can not afford the protein supplements, therefore, she may not be a candidate for the bariatric surgery. I stressed the importance of increased protein intake for wound healing. The increased protein intake/supplementation is necessary no matter what treatment plan that she decides to have. She will follow up one week. Instructed to call if she has any questions or concerns.
[2023-11-27 10:02] VITALS: RESP 16; TEMP 36.1; BMI 72.0
--- NOTE | 2023-11-27 11:38 | PCM.WC.PN ---
History of Present Illness Date of Service: 11/27/23 Chief Complaint: Ulcer on abdomen and leaky belly button. History of Wound: Patient is a 48-year-old female who presented on her pannus. She states that it was just noticed 1 to 2 weeks ago. She is obese and has a difficult time walking due to knee pain. She is able to transfer to and from her wheelchair. She states she is still able to drive. She states that she was bathing a couple weeks ago and discovered this ulcer. She states that it does have drainage. She has been covering it with a disposable pad to absorb the drainage. She also states that she has issues with drainage from her umbilicus. It will sometimes have a strong odor and also will bleed on occasion. She states she has seen dermatology and a general surgeon about this and they stated there was not much to do for this. Dermatology has put her on Ketoconazole cream for rashes in skin folds, that she has not recently been using. While examining her it was discovered that she also has an ulcer on her right lateral abdomen and her left lateral abdomen in a skin fold. She states she has a hard time bathing herself due to the weight of her pannus. She has a history of hypothyroidism, pre diabetes, polycystic ovary, asthma, sleep apnea, an ulcer on her left lower leg, and right knee arthritis. [facility]ound culture [facility]/23 [facility] and was positive for Pseudomonas aeruginosa, Proteus mirabilis, and Corynebacterium striatum. She was treated with Doxycycline before the culture results were back. Will start her on Levaquin. She comes in today for further evaluation of her ulcer. She denies fever, chills, nausea or vomiting. Progress of Wound: Lower abdominal/pannus ulcer is a beefy pink and stable in size. The ulcer is located in the most dependent portion of her pannus, there is pitting edema present. The ulcer on her left lateral abdomen pannus skin fold is much smaller. The right lateral abdomen in the pannus skin fold larger than it was last week. They are beefy pink in color. She has been placing iodoform gauze into her umbilicus stalk to help absorb the drainage that is present, she states that she is getting pink drainage from her umbilicus. She had an ultrasound of her abdomen at [facility], will try to get those results. Objective Data Objective Data Vital Signs: Vital Signs Temp Pulse Resp BP O2 Del Method 96.9 F L 77 16 163/76 H Room Air 11/27/23 10:02 11/07/23 13:31 11/27/23 10:02 11/07/23 13:31 11/27/23 10:02 Oxygen Delivery Method Room Air Weight: 433 lb Body Mass Index (BMI) 72.0 Charges/Coding Procedures Integumentary 111xxx-113xx: [id number] Silvia subq tissue 20 sq cm/< Add On Codes: 48674 Silvia subq tissue add-on (x1) Debridement Note Debridement Note Wound debrided: Lower abdominal pannus Laterality: Not Applicable Wound Grade/Stage: Stage III Type of Debridement: Excisional debridement Anesthesia Used: 5% Lidocaine Gel Depth: Down to and including healthy tissue and in the subcutaneous layer Percentage of wound debrided: 100 Instrument Used: 7mm curette Tissue Removed: Non viable tissue and slough Severity: Fat Layer Exposed Amount of bleeding with debridement: Mild Bleeding Controlled with: Compression and gauze Patient tolerated procedure: Patient tolerated procedure well Post-Debridement Measurements and Additional Note: Post-Debridement Measurements/Treatment [facility] Nurse 1 - General Ulcer Assessment Start: 11/07/23 13:31 Freq: Status: Active Protocol: BALDEMAR Activity Type Activity Date Activity User E-sign Co-sign Detail Recorded Client Recorded Date Recorded By Document 11/07/23 13:31 Desktop 11/07/23 13:42 RB Document 11/27/23 10:02 [facility] Desktop 11/27/23 10:08 [facility] 11/07/23 11/27/23 13:31 10:02 - Today's Visit Information Type of service Follow-up Visit Follow-up Visit (Physician/OPEN CLAIMS REPRESENTATIVE (Physician/OPEN CLAIMS REPRESENTATIVE ) ) Arrival Mode Ambulatory Wheelchair Transfer Assistance None None Patient Identification Verified (Name & Yes Yes ) Patient Requires Transmission-Based No No Precautions Height and Weight Body Mass Index (BMI) 72.0 72.0 BMI Classification Obese Obese Vital Signs Temperature (97.8 F-99.1 F) 97.2 F L 96.9 F L Temperature Source Temporal Temporal Pulse Rate (60-100) 77 Pulse Location Monitor Monitor Respiratory Rate (12-18) 18 16 Respiratory rate source Observation Observation Oxygen Delivery Method Room Air Blood Pressure (90/60-120/80) 163/76 H Blood Pressure Mean (mm Hg) 105 Source Monitor Monitor Position Semi-Fowlers Sitting Blood Pressure Location Left Arm Left Forearm History Since Last Visit- (Skip if this is Patient's initial visit) Have you changed medications since your No No last visit? Any new allergies or adverse reactions No No Had a fall/change in ADL's that may No No increase risk of falls Signs or symptoms of abuse and/or No No neglect since last visit Have you been in the hospital since your No No last visit? Has dressing in place as prescribed Yes Yes Has compression in place as prescribed No N/A Has offloadiing in place as prescribed No N/A Experienced any changes in pain level or No No management Left Footwear Regular Shoe Right Footwear Regular Shoe Pain Scale: 0-10 Numeric Is Patient Pain Free? Yes Yes WC - Nurse 1 - General Ulcer Measurement Start: 11/07/23 13:31 Freq: Status: Active Protocol: Activity Type Activity Date Activity User E-sign Co-sign Detail Recorded Client Recorded Date Recorded By Document 11/07/23 13:31 RB Desktop 11/07/23 13:42 RB Document 11/27/23 10:02 [facility] Desktop 11/27/23 10:08 F 11/07/23 11/27/23 13:31 10:02 Wound Center Nurse 1 4-right side abd -Combined with other wound No No -Current Size (cm) - Length 0.5 2 -Current Size (cm) - Width 0.3 1.8 -Current Size (cm) - Depth 0.1 0.1 -Total Square Cm 0.15 3.6 -Epithelialization Small 1-33% -Tunneling No No -Undermining/Tunneling No No -Circular Undermining No No -Exudate Amt Medium Medium -Exudate Type Serosanguineous Serosanguineous -Wound Margin Distinct, Flat & Intact Outline Attached -Granulation Amt Medium (34-66%) Large (67-100%) -Granulation Quality [place] -Slough/Fibrin Yes No -Necrosis Amt Medium (34-66%) None Present (0 %) -Necrotic Tissue Type Adherent Slough -Structure Exposed N/A -Texture (Sera-wound Skin Appearance) Assessed, Assessed, Excoriation Scarring -Moisture (Sera-wound Skin Appearance) Assessed Assessed,Dry/ Scaly -Color (Sera-wound Skin Appearance) Assessed Assessed, Erythema -Temperature (Sera-wound Skin No Abnormality No Abnormality Appearance) (Pt Warm) (Pt Warm) -Tenderness on Palpation (Sera-wound No No Skin Appearance) -Ulcer Cleansing Wound Cleanser Soap and Water -Foul Odor after Cleansing Yes, Due to No Product Use -Anesthetic Used 5% Lidocaine 4% Lidocaine Gel Solution 3-left side abd -Combined with other wound No No -Current Size (cm) - Length 0.5 0.3 -Current Size (cm) - Width 0.5 0.5 -Current Size (cm) - Depth 0.1 0.1 -Total Square Cm 0.25 0.15 -Epithelialization Small 1-33% -Tunneling No No -Undermining/Tunneling No No -Circular Undermining No No -Exudate Amt Medium Medium -Exudate Type Serosanguineous Serosanguineous -Wound Margin Distinct, Distinct, Outline Outline Attached Attached -Granulation Amt Medium (34-66%) Large (67-100%) -Granulation Quality [place] Red -Slough/Fibrin Yes No -Necrosis Amt Medium (34-66%) None Present (0 %) -Necrotic Tissue Type Adherent Slough -Structure Exposed N/A -Texture (Sera-wound Skin Appearance) Assessed, Assessed, Excoriation Scarring -Moisture (Sera-wound Skin Appearance) Assessed Assessed -Color (Sera-wound Skin Appearance) Assessed Assessed -Temperature (Sera-wound Skin No Abnormality No Abnormality Appearance) (Pt Warm) (Pt Warm) -Tenderness on Palpation (Sera-wound No No Skin Appearance) -Ulcer Cleansing Wound Cleanser Soap and Water -Foul Odor after Cleansing No No -Anesthetic Used 5% Lidocaine 4% Lidocaine Gel Solution #2 ABD -Combined with other wound No No -Current Size (cm) - Length 5.5 5.6 -Current Size (cm) - Width 6 5.8 -Current Size (cm) - Depth 0.1 0.5 -Total Square Cm 33.0 32.48 -Epithelialization None Present -Tunneling No No -Undermining/Tunneling No No -Circular Undermining No No -Exudate Amt Large Large -Exudate Type Serosanguineous Serosanguineous -Wound Margin Distinct, Distinct, Outline Outline Attached Attached -Granulation Amt Medium (34-66%) Medium (34-66%) -Granulation Quality [place] -Slough/Fibrin Yes Yes -Necrosis Amt Medium (34-66%) Small (1-33%) -Necrotic Tissue Type Adherent Slough Adherent Slough -Structure Exposed N/A -Texture (Sera-wound Skin Appearance) Assessed, Assessed, Localized Edema Scarring -Moisture (Sera-wound Skin Appearance) Assessed Assessed,Dry/ Scaly -Color (Sera-wound Skin Appearance) Assessed, Assessed, Erythema Erythema -Temperature (Sera-wound Skin No Abnormality No Abnormality Appearance) (Pt Warm) (Pt Warm) -Tenderness on Palpation (Sera-wound No No Skin Appearance) -Ulcer Cleansing Wound Cleanser Soap and Water -Foul Odor after Cleansing No No -Anesthetic Used 5% Lidocaine 4% Lidocaine Gel Solution WC - Nurse 2 - General Ulcer CM Notes Start: 11/07/23 13:31 Freq: Status: Active Protocol: Activity Type Activity Date Activity User E-sign Co-sign Detail Recorded Client Recorded Date Recorded By Document 11/07/23 13:51 Desktop 11/07/23 14:00 Document 11/27/23 10:47 Laptop 11/27/23 10:50 11/07/23 11/27/23 13:51 10:47 Wound Center Nurse 2 4-right side abd -Time 13:53 10:47 -Correct Patient Yes Yes -Correct Side, Site, Position Yes Yes -Correct Procedure Yes Yes -Procedure Performed Yes Yes -Type of Procedure Debridement Debridement -Clinical Debridement Subcutaneous Subcutaneous -Tissue Removed Subcutaneous Subcutaneous -Post Debridement (cm) - Length 0.7 1.6 -Post Debridement (cm) - Width 0.7 2.0 -Post Debridement (cm) - Depth 0.1 0.1 -Total Square (Post) (cm) 0.49 3.20 -Area of Debridement (cm) - Length 0.7 1.6 -Area of Debridement (cm) - Width 0.7 2.0 -Total Square (Area) (cm) 0.49 3.20 -Tunneling No No -Undermining/Tunneling No No -Circular Undermining No No -Wound/Ulcer Outcome Not Healed Not Healed -Ulcer Cleansing Rinsed/ Rinsed/ Irrigated with Irrigated with Saline Saline -Foul Odor after Cleansing No No -Bioengineered Tissue No No -Bleeding Controlled with Pressure Pressure -Treatment Response Procedure Procedure Tolerated Well Tolerated Well -Offloading No No -Debridement - Subq, 1st 20sq cm No No 3-left side abd -Time 13:56 10:48 -Correct Patient Yes Yes -Correct Side, Site, Position Yes Yes -Correct Procedure Yes Yes -Procedure Performed Yes Yes -Type of Procedure Debridement Debridement -Clinical Debridement Subcutaneous Subcutaneous -Tissue Removed Subcutaneous Subcutaneous -Post Debridement (cm) - Length 0.8 0.6 -Post Debridement (cm) - Width 0.6 0.8 -Post Debridement (cm) - Depth 0.1 0.1 -Total Square (Post) (cm) 0.48 0.48 -Area of Debridement (cm) - Length 0.8 0.6 -Area of Debridement (cm) - Width 0.6 0.8 -Total Square (Area) (cm) 0.48 0.48 -Tunneling No No -Undermining/Tunneling No No -Circular Undermining No No -Wound/Ulcer Outcome Not Healed Not Healed -Ulcer Cleansing Rinsed/ Rinsed/ Irrigated with Irrigated with Saline Saline -Foul Odor after Cleansing No No -Bioengineered Tissue No -Bleeding Controlled with Pressure Pressure -Treatment Response Procedure Procedure Tolerated Well Tolerated Well -Offloading No No -Debridement - Subq, 1st 20sq cm No No #2 ABD -Time 13:57 10:49 -Correct Patient Yes Yes -Correct Side, Site, Position Yes Yes -Correct Procedure Yes Yes -Procedure Performed Yes Yes -Type of Procedure Debridement Debridement -Clinical Debridement Subcutaneous Subcutaneous -Tissue Removed Subcutaneous Subcutaneous -Post Debridement (cm) - Length 5.4 5.4 -Post Debridement (cm) - Width 6.1 6 -Post Debridement (cm) - Depth 0.1 0.3 -Total Square (Post) (cm) 32.94 32.4 -Area of Debridement (cm) - Length 5.4 5.4 -Area of Debridement (cm) - Width 6.1 6.0 -Total Square (Area) (cm) 32.94 32.40 -Tunneling No No -Undermining/Tunneling No -Circular Undermining No No -Wound/Ulcer Outcome Not Healed Not Healed -Ulcer Cleansing Rinsed/ Rinsed/ Irrigated with Irrigated with Saline Saline -Foul Odor after Cleansing No No -Bioengineered Tissue No No -Bleeding Controlled with Pressure Pressure -Treatment Response Procedure Procedure Tolerated Well Tolerated Well -Offloading No No -Debridement - Subq, 1st 20sq cm Yes Yes -Debridement, SubQ, ea addt'l 20sq cm 1 1 or part thereof Pain Scale: 0-10 Numeric Is Patient Pain Free? Yes Yes - Nurse 3 - General Ulcer D/C NN Start: 11/07/23 13:31 Freq: Status: Active Protocol: Activity Type Activity Date Activity User E-sign Co-sign Detail Recorded Client Recorded Date Recorded By Document 11/07/23 14:30 RB Desktop 11/07/23 14:32 RB Document 11/27/23 11:12 DL Laptop 11/27/23 11:14 DL 11/07/23 11/27/23 14:30 11:12 Wound Care Center Nurse 3 4-right side abd -Ulcer Cleansing Rinsed/ Rinsed/ Irrigated with Irrigated with Saline Saline -Foul Odor after Cleansing No -Primary Dressing Applied Silvercel -Other Dressing silvercel -Primary Dressing Covered/Secured with Dry Gauze, Dry Gauze, Secured with Secured with Tape Tape -Silvercel 1 1 3-left side abd -Ulcer Cleansing Rinsed/ Rinsed/ Irrigated with Irrigated with Saline Saline -Foul Odor after Cleansing No -Other Dressing silvercel silvercell -Primary Dressing Covered/Secured with Dry Gauze, Dry Gauze, Secured with Secured with Tape Tape #2 ABD -Ulcer Cleansing Rinsed/ Irrigated with Saline -Foul Odor after Cleansing No -Other Dressing abd silvercell -Primary Dressing Covered/Secured with Dry Gauze,Dry Dry Gauze, Gauze & Roll Secured with Gauze,Secured Tape with Tape -Other Covering ABD Treatment Response Procedure Procedure Tolerated Well Tolerated Well Pain Scale: 0-10 Numeric Is Patient Pain Free? Yes Yes WC - Visit Discharge Discharge Condition Stable Stable Ambulatory Status Wheelchair Ambulatory, Wheelchair Transportation Private Auto Private Auto Medication Reconcilliation completed & No provided to patient/care provider Clinical Summary of Care Provided Yes Notes: Iodoform packed to umbilicus. Additional Wound Wound debrided: lateral abdominal ulcer in skin fold Laterality: Right Wound Grade/Stage: Stage III Type of Debridement: Excisional debridement Anesthesia Used: 5% Lidocaine Gel Depth: Down to and including healthy tissue and in the subcutaneous layer Percentage of wound debrided: 100 Instrument Used: 5mm curette Tissue Removed: Non viable tissue and slough Severity: Fat Layer Exposed Amount of bleeding with debridement: Mild Bleeding Controlled with: Pressure and Compression and gauze Patient tolerated procedure: Patient tolerated procedure well Additional Wound Wound debrided: lateral abdominal ulcer Laterality: Left Wound Grade/Stage: Stage III Type of Debridement: Excisional debridement Anesthesia Used: 5% Lidocaine Gel Depth: Down to and including healthy tissue and in the subcutaneous layer Percentage of wound debrided: 100 Instrument Used: 3mm curette Tissue Removed: Non viable tissue and slough Severity: Fat Layer Exposed Amount of bleeding with debridement: Mild Bleeding Controlled with: Compression and gauze Patient tolerated procedure: Patient tolerated procedure well Assessment/Plan Assessment/Plan (1) Skin ulcer of abdominal wall with fat layer exposed: CODE(S): L98.492 - Non-pressure chronic ulcer of skin of other sites with fat layer exposed (2) Obesity: CODE(S): E66.9 - Obesity, unspecified QUALIFIERS: Obesity type: due to excess calories Obesity classification: adult class 3 (BMI >= 40) Serious obesity comorbidity presence: with serious comorbidity Body mass index: BMI 70 or greater Qualified Code(s): E66.01 - Morbid (severe) obesity due to excess calories; Z68.45 - Body mass index [BMI] 70 or greater, adult (3) Umbilicus discharge: CODE(S): R19.8 - Other specified symptoms and signs involving the digestive system and abdomen (4) Yeast infection of the skin: CODE(S): B37.2 - Candidiasis of skin and nail PLAN: Plan Patient evaluated at the wound healing center today. Wound care for the ulcers on her right and left lateral abdomen and the lower abdomen/pannus area place Silvercel/silver alginate daily covered with gauze/ABD daily to these ulcers after washing with soap and water. For her umbilicus, will continue placing a strip of 1/4 Iodoform gauze to help absorb the moisture and prevent maceration and skin rubbing against itself. Wound culture were collected [facility] and she was placed on Doxycycline prophylactically. The wound cultures were positive for Pseudomonas aeruginosa, Proteus mirabilis, and Corynebacterium striatum. These bacteria are not sensitive to the Doxycycline. She has finished the Levaquin to cover the Pseudomonas and Proteus. The Corynebacterium is skin contaminant. Reinforced to her to try and elevate her pannus on a pillow so that some of the swelling may decrease in the area that is most dependent. She has seen Dr. Mcgowan in his office to discuss a panniculectomy. This will be done in stages due to the size of her pannus and bleeding risks. Further imaging is needed first. She is scheduled to have an ultrasound of her abomen at [facility]. She is seeing them for potential bariatric surgery. She states that she is not able to get enough protein intake and can not afford the protein supplements, therefore, she may not be a candidate for the bariatric surgery. I stressed the importance of increased protein intake for wound healing. The increased protein intake/supplementation is necessary no matter what treatment plan that she decides to have. She will follow up two weeks. Instructed to call if she has any questions or concerns.
== END 2023-12-05 23:59 | disposition home or self-care (01) ==
LOC: WC 10:00
PROVIDERS: PCP Preventive Medicine Occupational Medicine; Referring Provider Physician Assistant; Visit Provider Nurse Practitioner Family
DX: L98.492 Non-pressure chronic ulcer of skin of other sites with fat layer exposed (principal); E66.01 Morbid (severe) obesity due to excess calories; Z68.45 Body mass index [BMI] 70 or greater, adult; B37.2 Candidiasis of skin and nail; R26.2 Difficulty in walking, not elsewhere classified; M17.11 Unilateral primary osteoarthritis, right knee; E03.9 Hypothyroidism, unspecified; R73.03 Prediabetes; J45.909 Unspecified asthma, uncomplicated; G47.30 Sleep apnea, unspecified; Z79.899 Other long term (current) drug therapy
CPT/HCPCS: 11042; 11045

== ENCOUNTER 2023-12-25 10:15 | Outpatient (RCR) | payer MEDICAID, SELFPAY ==
[2023-12-06 00:40] VITALS: BP 163/76; PULSE 77; RESP 16; TEMP 36.1; BMI 72.0
[2023-12-11 10:05] VITALS: RESP 18; TEMP 35.4; BMI 72.0
--- NOTE | 2023-12-11 11:09 | PCM.WC.PN ---
History of Present Illness Date of Service: 12/11/23 Chief Complaint: Ulcer on abdomen and leaky belly button. History of Wound: Patient is a 48-year-old female who presented on her pannus. She states that it was just noticed 1 to 2 weeks ago. She is obese and has a difficult time walking due to knee pain. She is able to transfer to and from her wheelchair. She states she is still able to drive. She states that she was bathing a couple weeks ago and discovered this ulcer. She states that it does have drainage. She has been covering it with a disposable pad to absorb the drainage. She also states that she has issues with drainage from her umbilicus. It will sometimes have a strong odor and also will bleed on occasion. She states she has seen dermatology and a general surgeon about this and they stated there was not much to do for this. Dermatology has put her on Ketoconazole cream for rashes in skin folds, that she has not recently been using. While examining her it was discovered that she also has an ulcer on her right lateral abdomen and her left lateral abdomen in a skin fold. She states she has a hard time bathing herself due to the weight of her pannus. She has a history of hypothyroidism, pre diabetes, polycystic ovary, asthma, sleep apnea, an ulcer on her left lower leg, and right knee arthritis. [facility]ound culture [facility]12/23 [facility] and was positive for Pseudomonas aeruginosa, Proteus mirabilis, and Corynebacterium striatum. She was treated with Doxycycline before the culture results were back. Will start her on Levaquin. She comes in today for further evaluation of her ulcer. She denies fever, chills, nausea or vomiting. Progress of Wound: Lower abdominal/pannus ulcer is a beefy pink and stable in size but there is increased to the depth in the center. The ulcer is located in the most dependent portion of her pannus, there is pitting edema present. The ulcer on her left lateral abdomen pannus skin fold is stable. The right lateral abdomen in the pannus skin fold is also stable, but has hypergranulation tissue present. She has been placing iodoform gauze into her umbilicus stalk to help absorb the drainage that is present, she states that she is getting pink drainage from her umbilicus. She had an ultrasound of her abdomen at [facility], which showed suspicion of abdominal hernia. She has also been removed from the bariatric surgery option but has been placed in the obesity management and is scheduled to see them next month. Objective Data Objective Data Vital Signs: Vital Signs Temp Pulse Resp BP O2 Del Method 95.8 F L 77 18 163/76 H Room Air 12/11/23 10:05 12/06/23 00:40 12/11/23 10:05 12/06/23 00:40 12/11/23 10:05 Oxygen Delivery Method Room Air Weight: 433 lb Body Mass Index (BMI) 72.0 Charges/Coding Procedures Integumentary 111xxx-113xx: 15203 Silvia subq tissue 20 sq cm/< Add On Codes: 74999 Silvia subq tissue add-on (x2) Debridement Note Debridement Note Wound debrided: Lower abdominal pannus Laterality: Not Applicable Wound Grade/Stage: Stage III Type of Debridement: Excisional debridement Anesthesia Used: 5% Lidocaine Gel Depth: Down to and including healthy tissue and in the subcutaneous layer Percentage of wound debrided: 100 Instrument Used: 7mm curette Tissue Removed: Non viable tissue and slough Severity: Fat Layer Exposed Amount of bleeding with debridement: Mild Bleeding Controlled with: Compression and gauze Patient tolerated procedure: Patient tolerated procedure well Post-Debridement Measurements and Additional Note: Post-Debridement Measurements/Treatment - Nurse 1 - General Ulcer Assessment Start: 12/11/23 10:04 Freq: Status: Active Protocol: .LOWEXT Activity Type Activity Date Activity User E-sign Co-sign Detail Recorded Client Recorded Date Recorded By Document 12/11/23 10:05 [facility] Desktop 12/11/23 10:11 [facility] 12/11/23 10:05 - Today's Visit Information Type of service Follow-up Visit (Physician/ENVIRONMENTAL RESEARCH SCIENTIST ) Arrival Mode Ambulatory, Wheelchair Patient Identification Verified (Name & Yes ) Height and Weight Body Mass Index (BMI) 72.0 BMI Classification Obese Vital Signs Temperature (97.8 F-99.1 F) 95.8 F L Temperature Source Temporal Pulse Location Monitor Respiratory Rate (12-18) 18 Respiratory rate source Observation Oxygen Delivery Method Room Air Source Monitor Position Sitting Blood Pressure Location Left Arm History Since Last Visit- (Skip if this is Patient's initial visit) Have you changed medications since your Yes last visit? Any new allergies or adverse reactions No Had a fall/change in ADL's that may No increase risk of falls Signs or symptoms of abuse and/or No neglect since last visit Have you been in the hospital since your No last visit? Has dressing in place as prescribed Yes Has compression in place as prescribed N/A Has offloadiing in place as prescribed N/A Experienced any changes in pain level or No management Left Footwear Regular Shoe Right Footwear Regular Shoe Pain Scale: 0-10 Numeric Is Patient Pain Free? Yes WC - Nurse 1 - General Ulcer Measurement Start: 12/11/23 10:04 Freq: Status: Active Protocol: Activity Type Activity Date Activity User E-sign Co-sign Detail Recorded Client Recorded Date Recorded By Document 12/11/23 10:05 [facility] Desktop 12/11/23 10:11 [facility] 12/11/23 10:05 Wound Center Nurse 1 4-right side abd -Current Size (cm) - Length 2 -Current Size (cm) - Width 1.5 -Current Size (cm) - Depth 0.1 -Total Square Cm 3.0 -Date of Last Picture (Recall this 12/11/23 field) -Exudate Amt Small -Exudate Type Serosanguineous -Wound Margin Distinct, Outline Attached -Granulation Amt Large (67-100%) -Granulation Quality Red -Texture (Sera-wound Skin Appearance) Assessed -Moisture (Sera-wound Skin Appearance) Assessed -Color (Sera-wound Skin Appearance) Assessed -Temperature (Sera-wound Skin No Abnormality Appearance) (Pt Warm) -Tenderness on Palpation (Sera-wound No Skin Appearance) -Ulcer Cleansing Soap and Water -Foul Odor after Cleansing No -Anesthetic Used 5% Lidocaine Gel 3-left side abd -Current Size (cm) - Length 1.2 -Current Size (cm) - Width 0.3 -Current Size (cm) - Depth 0.1 -Total Square Cm 0.36 -Date of Last Picture (Recall this 12/11/23 field) -Exudate Amt Small -Exudate Type Serosanguineous -Wound Margin Distinct, Outline Attached -Granulation Amt Large (67-100%) -Granulation Quality Red -Texture (Sera-wound Skin Appearance) Assessed -Moisture (Sera-wound Skin Appearance) Assessed -Color (Sera-wound Skin Appearance) Assessed -Temperature (Sera-wound Skin No Abnormality Appearance) (Pt Warm) -Tenderness on Palpation (Sera-wound No Skin Appearance) -Ulcer Cleansing Soap and Water -Anesthetic Used 5% Lidocaine Gel #2 ABD -Current Size (cm) - Length 5.8 -Current Size (cm) - Width 6.5 -Current Size (cm) - Depth 0.2 -Total Square Cm 37.70 -Date of Last Picture (Recall this 12/11/23 field) -Exudate Amt Large -Exudate Type Serosanguineous -Wound Margin Distinct, Outline Attached -Granulation Amt Large (67-100%) -Granulation Quality Red -Necrosis Amt Small (1-33%) -Necrotic Tissue Type Eschar -Texture (Sera-wound Skin Appearance) Assessed -Moisture (Sera-wound Skin Appearance) Assessed -Color (Sera-wound Skin Appearance) Assessed -Temperature (Sera-wound Skin No Abnormality Appearance) (Pt Warm) -Tenderness on Palpation (Sera-wound No Skin Appearance) -Ulcer Cleansing Soap and Water -Foul Odor after Cleansing No -Anesthetic Used 5% Lidocaine Gel WC - Nurse 2 - General Ulcer CM Notes Start: 12/11/23 10:04 Freq: Status: Active Protocol: Activity Type Activity Date Activity User E-sign Co-sign Detail Recorded Client Recorded Date Recorded By Document 12/11/23 10:36 [facility] Desktop 12/11/23 10:46 [facility] 12/11/23 10:36 Wound Center Nurse 2 4-right side abd -Time 10:38 -Correct Patient Yes -Correct Side, Site, Position Yes -Correct Procedure Yes -Procedure Performed Yes -Type of Procedure Debridement -Clinical Debridement Subcutaneous -Tissue Removed Subcutaneous -Post Debridement (cm) - Length 1.8 -Post Debridement (cm) - Width 2.0 -Post Debridement (cm) - Depth 0.1 -Total Square (Post) (cm) 3.60 -Area of Debridement (cm) - Length 1.8 -Area of Debridement (cm) - Width 2.0 -Total Square (Area) (cm) 3.60 -Tunneling No -Undermining/Tunneling No -Circular Undermining No -Wound/Ulcer Outcome Not Healed -Ulcer Cleansing Rinsed/ Irrigated with Saline -Foul Odor after Cleansing No -Bioengineered Tissue No -Bleeding Controlled with Pressure -Treatment Response Procedure Tolerated Well -Debridement - Subq, 1st 20sq cm Yes -Debridement, SubQ, ea addt'l 20sq cm 2 or part thereof 3-left side abd -Time 10:38 -Correct Patient Yes -Correct Side, Site, Position Yes -Correct Procedure Yes -Procedure Performed Yes -Type of Procedure Debridement -Clinical Debridement Subcutaneous -Tissue Removed Subcutaneous -Post Debridement (cm) - Length 1.8 -Post Debridement (cm) - Width 2.0 -Post Debridement (cm) - Depth 0.1 -Total Square (Post) (cm) 3.60 -Area of Debridement (cm) - Length 1.8 -Area of Debridement (cm) - Width 2.0 -Total Square (Area) (cm) 3.60 -Tunneling No -Undermining/Tunneling No -Circular Undermining No -Wound/Ulcer Outcome Not Healed -Ulcer Cleansing Rinsed/ Irrigated with Saline -Foul Odor after Cleansing No -Bleeding Controlled with Pressure -Treatment Response Procedure Tolerated Well -Debridement - Subq, 1st 20sq cm No #2 ABD -Time 10:38 -Correct Patient Yes -Correct Side, Site, Position Yes -Correct Procedure Yes -Procedure Performed Yes -Type of Procedure Debridement -Clinical Debridement Subcutaneous -Tissue Removed Subcutaneous -Post Debridement (cm) - Length 5.5 -Post Debridement (cm) - Width 6.2 -Post Debridement (cm) - Depth 0.2 -Total Square (Post) (cm) 34.10 -Area of Debridement (cm) - Length 5.5 -Area of Debridement (cm) - Width 6.2 -Total Square (Area) (cm) 34.10 -Tunneling No -Undermining/Tunneling No -Circular Undermining No -Wound/Ulcer Outcome Not Healed -Ulcer Cleansing Rinsed/ Irrigated with Saline -Foul Odor after Cleansing No -Bleeding Controlled with Pressure -Treatment Response Procedure Tolerated Well -Debridement - Subq, 1st 20sq cm Yes Pain Scale: 0-10 Numeric Is Patient Pain Free? Yes WC - Nurse 3 - General Ulcer D/C NN Start: 12/11/23 10:04 Freq: Status: Active Protocol: Activity Type Activity Date Activity User E-sign Co-sign Detail Recorded Client Recorded Date Recorded By Document 12/11/23 10:57 [facility] Desktop 12/11/23 10:58 K[facility] 12/11/23 10:57 Wound Care Center Nurse 3 4-right side abd -Primary Dressing Applied Silvercel -Primary Dressing Covered/Secured with Dry Gauze, Secured with Tape -Silvercel 1 3-left side abd -Primary Dressing Covered/Secured with Dry Gauze, Secured with Tape #2 ABD -Primary Dressing Covered/Secured with Dry Gauze, Secured with Tape Pain Scale: 0-10 Numeric Is Patient Pain Free? Yes WC - Visit Discharge Discharge Condition Stable Ambulatory Status Ambulatory, Wheelchair Transportation Private Auto Medication Reconcilliation completed & No provided to patient/care provider Clinical Summary of Care Provided Yes Additional Wound Wound debrided: lateral abdominal ulcer in skin fold Laterality: Right Wound Grade/Stage: Stage III Type of Debridement: Excisional debridement Anesthesia Used: 5% Lidocaine Gel Depth: Down to and including healthy tissue and in the subcutaneous layer Percentage of wound debrided: 100 Instrument Used: 5mm curette Tissue Removed: Non viable tissue and slough, hypergranulation tissue Severity: Fat Layer Exposed Amount of bleeding with debridement: Mild Bleeding Controlled with: Pressure and Compression and gauze Patient tolerated procedure: Patient tolerated procedure well Additional Wound Wound debrided: lateral abdominal ulcer Laterality: Left Wound Grade/Stage: Stage III Type of Debridement: Excisional debridement Anesthesia Used: 5% Lidocaine Gel Depth: Down to and including healthy tissue and in the subcutaneous layer Percentage of wound debrided: 100 Instrument Used: 3mm curette Tissue Removed: Non viable tissue and slough Severity: Fat Layer Exposed Amount of bleeding with debridement: Mild Bleeding Controlled with: Compression and gauze Patient tolerated procedure: Patient tolerated procedure well Assessment/Plan Assessment/Plan (1) Skin ulcer of abdominal wall with fat layer exposed: CODE(S): L98.492 - Non-pressure chronic ulcer of skin of other sites with fat layer exposed (2) Obesity: CODE(S): E66.9 - Obesity, unspecified QUALIFIERS: Obesity type: due to excess calories Obesity classification: adult class 3 (BMI >= 40) Serious obesity comorbidity presence: with serious comorbidity Body mass index: BMI 70 or greater Qualified Code(s): E66.01 - Morbid (severe) obesity due to excess calories; Z68.45 - Body mass index [BMI] 70 or greater, adult (3) Umbilicus discharge: CODE(S): R19.8 - Other specified symptoms and signs involving the digestive system and abdomen (4) Yeast infection of the skin: CODE(S): B37.2 - Candidiasis of skin and nail PLAN: Plan Patient evaluated at the wound healing center today. Wound care for the ulcers on her right and left lateral abdomen and the lower abdomen/pannus area place Silvercel/silver alginate daily covered with gauze/ABD daily to these ulcers after washing with soap and water. For her umbilicus, will continue placing a strip of 1/4 Iodoform gauze to help absorb the moisture and prevent maceration and skin rubbing against itself. Wound culture were collected [facility] and she was placed on Doxycycline prophylactically. The wound cultures were positive for Pseudomonas aeruginosa, Proteus mirabilis, and Corynebacterium striatum. These bacteria are not sensitive to the Doxycycline. She has finished the Levaquin to cover the Pseudomonas and Proteus. The Corynebacterium is skin contaminant. Reinforced to her to try and elevate her pannus on a pillow so that some of the swelling may decrease in the area that is most dependent. She has seen Dr. Mcgowan in his office to discuss a panniculectomy. This will be done in stages due to the size of her pannus and bleeding risks. Further imaging is needed first. She is scheduled to have an ultrasound of her abomen at [facility]. She is seeing them for potential bariatric surgery. She states that she is not able to get enough protein intake and can not afford the protein supplements, therefore, she may not be a candidate for the bariatric surgery. I stressed the importance of increased protein intake for wound healing. The increased protein intake/supplementation is necessary no matter what treatment plan that she decides to have. She will follow up two weeks. Instructed to call if she has any questions or concerns.
--- NOTE | 2023-12-12 14:51 | WC ---
12/11/2023 [facility]
[2023-12-25 09:51] VITALS: BP 155/69; PULSE 79; RESP 18; TEMP 36.1; BMI 72.0
--- NOTE | 2023-12-25 15:46 | PN.PCM_ITS ---
History of Present Illness Date of Service: 12/25/23 Chief Complaint: Ulcer on abdomen and leaky belly button. History of Wound: Patient is a 48-year-old female who presented on her pannus. She states that it was just noticed 1 to 2 weeks ago. She is obese and has a difficult time walking due to knee pain. She is able to transfer to and from her wheelchair. She states she is still able to drive. She states that she was bathing a couple weeks ago and discovered this ulcer. She states that it does have drainage. She has been covering it with a disposable pad to absorb the drainage. She also states that she has issues with drainage from her umbilicus. It will sometimes have a strong odor and also will bleed on occasion. She states she has seen dermatology and a general surgeon about this and they stated there was not much to do for this. Dermatology has put her on Ketoconazole cream for rashes in skin folds, that she has not recently been using. While examining her it was discovered that she also has an ulcer on her right lateral abdomen and her left lateral abdomen in a skin fold. She states she has a hard time bathing herself due to the weight of her pannus. She has a history of hypothyroidism, pre diabetes, polycystic ovary, asthma, sleep apnea, an ulcer on her left lower leg, and right knee arthritis. [facility]ound culture [facility]/23 [facility] and was positive for Pseudomonas aeruginosa, Proteus mirabilis, and Corynebacterium striatum. She was treated wi Doxycycline before the culture results were back. Will start her on Levaquin. She comes in today for further evaluation of her ulcer. She denies fever, chills, nausea or vomiting. Progress of Wound: Lower abdominal/pannus ulcer is a beefy pink and stable, the overall color has improved, the ulcer bed is beefy pink. The ulcer is located in the most depen dent portion of her pannus, there is pitting edema present. She states she has a difficult time keeping a dressing on this area, it tends to fall off. The ulcer on her left lateral abdomen pannus skin fold is slightly smaller in size. The right lateral abdomen in the pannus skin fold is also stable with no hypergranulation tissue present at this time. She has been placing iodoform gauze into her umbilicus stalk to help absorb the drainage that is present. She states she is not able to pack as much into the umbilicus as she previously had been. She has also been removed from the bariatric surgery option but has been placed in the obesity management and is scheduled to see them at the end of February. Objective Data Objective Data Vital Signs: Vital Signs Temp Pulse Resp BP O2 Del Method 97.0 F L 79 18 155/69 H Room Air 12/25/23 09:51 12/25/23 09:51 12/25/23 09:51 12/25/23 09:51 12/25/23 09:51 Oxygen Delivery Method Room Air Weight: 433 lb Body Mass Index (BMI) 72.0 Charges/Coding Procedures Integumentary 111xxx-113xx: [id number] Silvia subq tissue 20 sq cm/< Add On Codes: 05348 Silvia subq tissue add-on (x1) Debridement Note Debridement Note Wound debrided: Lower abdominal pannus Laterality: Not Applicable Wound Grade/Stage: Stage III Type of Debridement: Excisional debridement Anesthesia Used: 5% Lidocaine Gel Depth: Down to and including healthy tissue and in the subcutaneous layer Percentage of wound debrided: 100 Instrument Used: 7mm curette Tissue Removed: Non viable tissue and slough Severity: Fat Layer Exposed Amount of bleeding with debridement: Mild Bleeding Controlled with: Compression and gauze Patient tolerated procedure: Patient tolerated procedure well Post-Debridement Measurements and Additional Note: Post-Debridement Measurements/Treatment - Nurse 1 - General Ulcer Assessment Start: 12/11/23 10:04 Freq: Status: Active Protocol: BALDEMAR Activity Type Activity Date Activity User E-sign Co-sign Detail Recorded Client Recorded Date Recorded By Document 12/11/23 10:05 [facility] Desktop 12/11/23 10:11 [facility] Document 12/25/23 09:51 [facility] wound center 12/25/23 10:04 KW 12/11/23 12/25/23 10:05 09:51 WC - Today's Visit Information Type of service Follow-up Visit Follow-up Visit (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/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 (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/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 ) ) Arrival Mode Ambulatory, Wheelchair Wheelchair Patient Identification Verified (Name & Yes Yes ) Height and Weight Body Mass Index (BMI) 72.0 72.0 BMI Classification Obese Obese Vital Signs Temperature (97.8 F-99.1 F) 95.8 F L 97.0 F L Temperature Source Temporal Temporal Pulse Rate (60-100) 79 Pulse Location Monitor Monitor Respiratory Rate (12-18) 18 18 Respiratory rate source Observation Observation Oxygen Delivery Method Room Air Room Air Blood Pressure (90/60-120/80) 155/69 H Blood Pressure Mean (mm Hg) 97 Source Monitor Monitor Position Sitting Sitting Blood Pressure Location Left Arm Left Forearm History Since Last Visit- (Skip if this is Patient's initial visit) Have you changed medications since your Yes No last visit? Any new allergies or adverse reactions No No Had a fall/change in ADL's that may No No increase risk of falls Signs or symptoms of abuse and/or No No neglect since last visit Have you been in the hospital since your No No last visit? Has dressing in place as prescribed Yes Yes Has compression in place as prescribed N/A Has offloadiing in place as prescribed N/A N/A Experienced any changes in pain level or No No management Left Footwear Regular Shoe Regular Shoe Right Footwear Regular Shoe Regular Shoe Pain Scale: 0-10 Numeric Is Patient Pain Free? Yes Yes WC - Nurse 1 - General Ulcer Measurement Start: 12/11/23 10:04 Freq: Status: Active Protocol: Activity Type Activity Date Activity User E-sign Co-sign Detail Recorded Client Recorded Date Recorded By Document 12/11/23 10:05 [facility] Desktop 12/11/23 10:11 [facility] Document 12/25/23 09:51 wound center 12/25/23 10:04 KW 12/11/23 12/25/23 10:05 09:51 Wound Center Nurse 1 4-right side abd -Current Size (cm) - Length 2 2.5 -Current Size (cm) - Width 1.5 1.1 -Current Size (cm) - Depth 0.1 0.1 -Total Square Cm 3.0 2.75 -Date of Last Picture (Recall this 12/11/23 field) -Exudate Amt Small Small -Exudate Type Serosanguineous Serosanguineous -Wound Margin Distinct, Distinct, Outline Outline Attached Attached -Granulation Amt Large (67-100%) Large (67-100%) -Granulation Quality Red Red -Necrosis Amt Small (1-33%) -Necrotic Tissue Type Adherent Slough -Texture (Sera-wound Skin Appearance) Assessed Assessed,Rash -Moisture (Sera-wound Skin Appearance) Assessed Assessed -Color (Sera-wound Skin Appearance) Assessed Assessed -Temperature (Sera-wound Skin No Abnormality No Abnormality Appearance) (Pt Warm) (Pt Warm) -Tenderness on Palpation (Sera-wound No No Skin Appearance) -Ulcer Cleansing Soap and Water Soap and Water -Foul Odor after Cleansing No No -Anesthetic Used 5% Lidocaine 4% Lidocaine Gel Solution 3-left side abd -Current Size (cm) - Length 1.2 0.3 -Current Size (cm) - Width 0.3 0.9 -Current Size (cm) - Depth 0.1 0.1 -Total Square Cm 0.36 0.27 -Date of Last Picture (Recall this 12/11/23 field) -Exudate Amt Small Medium -Exudate Type Serosanguineous Serosanguineous -Wound Margin Distinct, Distinct, Outline Outline Attached Attached -Granulation Amt Large (67-100%) Large (67-100%) -Granulation Quality Red Red -Texture (Sera-wound Skin Appearance) Assessed Assessed,Rash -Moisture (Sera-wound Skin Appearance) Assessed Assessed -Color (Sera-wound Skin Appearance) Assessed Assessed -Temperature (Sera-wound Skin No Abnormality No Abnormality Appearance) (Pt Warm) (Pt Warm) -Tenderness on Palpation (Sera-wound No No Skin Appearance) -Ulcer Cleansing Soap and Water Soap and Water -Foul Odor after Cleansing No -Anesthetic Used 5% Lidocaine 5% Lidocaine Gel Gel #2 ABD -Current Size (cm) - Length 5.8 5.1 -Current Size (cm) - Width 6.5 6.4 -Current Size (cm) - Depth 0.2 0.2 -Total Square Cm 37.70 32.64 -Date of Last Picture (Recall this 12/11/23 field) -Exudate Amt Large Medium -Exudate Type Serosanguineous Serosanguineous -Wound Margin Distinct, Distinct, Outline Outline Attached Attached -Granulation Amt Large (67-100%) Large (67-100%) -Granulation Quality Red Red -Necrosis Amt Small (1-33%) -Necrotic Tissue Type Eschar -Texture (Sera-wound Skin Appearance) Assessed Assessed,Rash -Moisture (Sera-wound Skin Appearance) Assessed Assessed -Color (Sera-wound Skin Appearance) Assessed Assessed -Temperature (Sera-wound Skin No Abnormality No Abnormality Appearance) (Pt Warm) (Pt Warm) -Tenderness on Palpation (Sera-wound No No Skin Appearance) -Ulcer Cleansing Soap and Water Soap and Water -Foul Odor after Cleansing No No -Anesthetic Used 5% Lidocaine 4% Lidocaine Gel Solution WC - Nurse 2 - General Ulcer CM Notes Start: 12/11/23 10:04 Freq: Status: Active Protocol: Activity Type Activity Date Activity User E-sign Co-sign Detail Recorded Client Recorded Date Recorded By Document 12/11/23 10:36 [facility] Desktop 12/11/23 10:46 GM Edit Result 12/11/23 10:36 GM (1) [id number] 12/20/23 07:53 GM Document 12/25/23 10:14 [place] [id number] 12/25/23 10:25 DS (1) #2 ABD - Debridement - Subq, 1st 20sq cm Yes => No 12/11/23 12/25/23 10:36 10:14 Wound Center Nurse 2 4-right side abd -Time 10:38 10:15 -Correct Patient Yes Yes -Correct Side, Site, Position Yes Yes -Correct Procedure Yes Yes -Procedure Performed Yes Yes -Type of Procedure Debridement Debridement -Clinical Debridement Subcutaneous Subcutaneous -Tissue Removed Subcutaneous Subcutaneous -Post Debridement (cm) - Length 1.8 2.0 -Post Debridement (cm) - Width 2.0 1.5 -Post Debridement (cm) - Depth 0.1 0.1 -Total Square (Post) (cm) 3.60 3.00 -Area of Debridement (cm) - Length 1.8 2.0 -Area of Debridement (cm) - Width 2.0 1.5 -Total Square (Area) (cm) 3.60 3.00 -Tunneling No No -Undermining/Tunneling No No -Circular Undermining No No -Wound/Ulcer Outcome Not Healed Not Healed -Ulcer Cleansing Rinsed/ Rinsed/ Irrigated with Irrigated with Saline Saline -Foul Odor after Cleansing No -Bioengineered Tissue No -Bleeding Controlled with Pressure Pressure -Treatment Response Procedure Procedure Tolerated Well Tolerated Well -Debridement - Subq, 1st 20sq cm Yes No -Debridement, SubQ, ea addt'l 20sq cm 2 or part thereof 3-left side abd -Time 10:38 10:15 -Correct Patient Yes Yes -Correct Side, Site, Position Yes Yes -Correct Procedure Yes Yes -Procedure Performed Yes Yes -Type of Procedure Debridement Debridement -Clinical Debridement Subcutaneous Subcutaneous -Tissue Removed Subcutaneous Subcutaneous -Post Debridement (cm) - Length 1.8 0.5 -Post Debridement (cm) - Width 2.0 0.7 -Post Debridement (cm) - Depth 0.1 0.1 -Total Square (Post) (cm) 3.60 0.35 -Area of Debridement (cm) - Length 1.8 0.5 -Area of Debridement (cm) - Width 2.0 0.7 -Total Square (Area) (cm) 3.60 0.35 -Tunneling No -Undermining/Tunneling No No -Circular Undermining No No -Wound/Ulcer Outcome Not Healed Not Healed -Ulcer Cleansing Rinsed/ Rinsed/ Irrigated with Irrigated with Saline Saline -Foul Odor after Cleansing No -Bleeding Controlled with Pressure Pressure -Treatment Response Procedure Procedure Tolerated Well Tolerated Well -Debridement - Subq, 1st 20sq cm No Yes #2 ABD -Time 10:38 10:15 -Correct Patient Yes Yes -Correct Side, Site, Position Yes Yes -Correct Procedure Yes Yes -Procedure Performed Yes Yes -Type of Procedure Debridement Debridement -Clinical Debridement Subcutaneous Subcutaneous -Tissue Removed Subcutaneous Subcutaneous -Post Debridement (cm) - Length 5.5 5.5 -Post Debridement (cm) - Width 6.2 6.0 -Post Debridement (cm) - Depth 0.2 0.4 -Total Square (Post) (cm) 34.10 33.00 -Area of Debridement (cm) - Length 5.5 5.5 -Area of Debridement (cm) - Width 6.2 6.0 -Total Square (Area) (cm) 34.10 33.00 -Tunneling No No -Undermining/Tunneling No -Circular Undermining No No -Wound/Ulcer Outcome Not Healed Not Healed -Ulcer Cleansing Rinsed/ Rinsed/ Irrigated with Irrigated with Saline Saline -Foul Odor after Cleansing No -Bleeding Controlled with Pressure Pressure -Treatment Response Procedure Procedure Tolerated Well Tolerated Well -Debridement - Subq, 1st 20sq cm No No Pain Scale: 0-10 Numeric Is Patient Pain Free? Yes Yes WC - Nurse 3 - General Ulcer D/C NN Start: 12/11/23 10:04 Freq: Status: Active Protocol: Activity Type Activity Date Activity User E-sign Co-sign Detail Recorded Client Recorded Date Recorded By Document 12/11/23 10:57 KW Desktop 12/11/23 10:58 KW Document 12/25/23 10:29 K[facility] wound center 12/25/23 10:30 KW 12/11/23 12/25/23 10:57 10:29 Wound Care Center Nurse 3 4-right side abd -Primary Dressing Applied Silvercel Mepilex Border, Silvercel -Primary Dressing Covered/Secured with Dry Gauze, Secured with Tape -Mepilex Border 1 -Silvercel 1 1 3-left side abd -Primary Dressing Applied Mepilex Border -Primary Dressing Covered/Secured with Dry Gauze, Secured with Tape -Mepilex Border 1 #2 ABD -Primary Dressing Applied Mepilex Border -Primary Dressing Covered/Secured with Dry Gauze, Secured with Tape -Mepilex Border 1 Pain Scale: 0-10 Numeric Is Patient Pain Free? Yes Yes WC - Visit Discharge Discharge Condition Stable Stable Ambulatory Status Ambulatory, Wheelchair Wheelchair Transportation Private Auto Private Auto Medication Reconcilliation completed & No No provided to patient/care provider Clinical Summary of Care Provided Yes Yes Additional Wound Wound debrided: lateral abdominal ulcer in skin fold Laterality: Right Wound Grade/Stage: Stage III Type of Debridement: Excisional debridement Anesthesia Used: 5% Lidocaine Gel Depth: Down to and including healthy tissue and in the subcutaneous layer Percentage of wound debrided: 100 Instrument Used: 5mm curette Tissue Removed: Non viable tissue and slough Severity: Fat Layer Exposed Amount of bleeding with debridement: Mild Bleeding Controlled with: Pressure and Compression and gauze Patient tolerated procedure: Patient tolerated procedure well Additional Wound Wound debrided: lateral abdominal ulcer Laterality: Left Wound Grade/Stage: Stage III Type of Debridement: Excisional debridement Anesthesia Used: 5% Lidocaine Gel Depth: Down to and including healthy tissue and in the subcutaneous layer Percentage of wound debrided: 100 Instrument Used: 3mm curette Tissue Removed: Non viable tissue and slough Severity: Fat Layer Exposed Amount of bleeding with debridement: Mild Bleeding Controlled with: Compression and gauze Patient tolerated procedure: Patient tolerated procedure well Assessment/Plan Assessment/Plan (1) Skin ulcer of abdominal wall with fat layer exposed: CODE(S): L98.492 - Non-pressure chronic ulcer of skin of other sites with fat layer exposed (2) Obesity: CODE(S): E66.9 - Obesity, unspecified QUALIFIERS: Obesity type: due to excess calories Obesity classification: adult class 3 (BMI >= 40) Serious obesity comorbidity presence: with serious comorbidity Body mass index: BMI 70 or greater Qualified Code(s): E66.01 - Morbid (severe) obesity due to excess calories; Z68.45 - Body mass index [BMI] 70 or greater, adult (3) Umbilicus discharge: CODE(S): R19.8 - Other specified symptoms and signs involving the digestive system and abdomen (4) Yeast infection of the skin: CODE(S): B37.2 - Candidiasis of skin and nail PLAN: Plan Patient evaluated at the wound healing center today. Wound care for the ulcers on her right and left lateral abdomen and the lower abdomen/pannus area place Silvercel/silver alginate daily covered with gauze/ABD daily to these ulcers after washing with soap and water. For her umbilicus, will continue placing a strip of 1/4 Iodoform gauze to help absorb the moisture and prevent maceration and skin rubbing against itself. Wound culture were [facility] and she was placed on Doxycycline prophylactically. The wound cultures were positive for Pseudomonas aeruginosa, Proteus mirabilis, and Corynebacterium striatum. These bacteria are not sensitive to the Doxycycline. She has finished the Levaquin to cover the Pseudomonas and Proteus. The Corynebacterium is skin contaminant. Reinforced to her to try and elevate her pannus on a pillow so that some of the swelling may decrease in the area that is most dependent. She has seen Dr. Mcgowan in his office to discuss a panniculectomy. With her hernia, it is recommended that she go to a tertiary facility for further surgical options She was scheduled to have an ultrasound of her abomen at [facility] and it showed an abdominal hernia. She states she was removed from bariatric surgery program and was referred to the obesity medicine at the end of February. She states that she is not able to get enough protein intake and can not afford the protein supplements, therefore, she may not be a candidate for the bariatric surgery. I stressed the importance of increased protein intake for wound healing. The increased protein intake/supplementation is necessary no matter what treatment plan that she decides to have. She will follow up two weeks on a Monday. Instructed to call if she has any questions or concerns.
== END 2024-01-05 23:59 | disposition home or self-care (01) ==
LOC: WC 10:15
PROVIDERS: PCP Preventive Medicine Occupational Medicine; Referring Provider Physician Assistant; Visit Provider Nurse Practitioner Family
DX: L98.492 Non-pressure chronic ulcer of skin of other sites with fat layer exposed (principal); E66.01 Morbid (severe) obesity due to excess calories; Z68.45 Body mass index [BMI] 70 or greater, adult; M17.11 Unilateral primary osteoarthritis, right knee; B37.2 Candidiasis of skin and nail; R26.2 Difficulty in walking, not elsewhere classified; E03.9 Hypothyroidism, unspecified; R73.03 Prediabetes; J45.909 Unspecified asthma, uncomplicated; G47.30 Sleep apnea, unspecified; Z79.84 Long term (current) use of oral hypoglycemic drugs; Z79.899 Other long term (current) drug therapy
CPT/HCPCS: 11042; 11045

== ENCOUNTER 2024-02-02 11:00 | Outpatient (RCR) | payer MEDICAID, SELFPAY ==
[2024-01-06 02:10] VITALS: BP 163/76; PULSE 77; RESP 16; TEMP 36.1; BMI 72.0
[2024-01-10 13:19] VITALS: BP 140/57; PULSE 72; RESP 16; TEMP 36.2; BMI 72.0
--- NOTE | 2024-01-10 15:47 | PCM.WC.PN ---
History of Present Illness Date of Service: 01/10/24 Chief Complaint: Ulcer on abdomen and leaky belly button. History of Wound: Patient is a 48-year-old female who presented on her pannus. She states that it was just noticed 1 to 2 weeks ago. She is obese and has a difficult time walking due to knee pain. She is able to transfer to and from her wheelchair. She states she is still able to drive. She states that she was bathing a couple weeks ago and discovered this ulcer. She states that it does have drainage. She has been covering it with a disposable pad to absorb the drainage. She also states that she has issues with drainage from her umbilicus. It will sometimes have a strong odor and also will bleed on occasion. She states she has seen dermatology and a general surgeon about this and they stated there was not much to do for this. Dermatology has put her on Ketoconazole cream for rashes in skin folds, that she has not recently been using. While examining her it was discovered that she also has an ulcer on her right lateral abdomen and her left lateral abdomen in a skin fold. She states she has a hard time bathing herself due to the weight of her pannus. She has a history of hypothyroidism, pre diabetes, polycystic ovary, asthma, sleep apnea, an ulcer on her left lower leg, and right knee arthritis. [facility]ound culture [facility]/23 [facility] and was positive for Pseudomonas aeruginosa, Proteus mirabilis, and Corynebacterium striatum. She was treated with Doxycycline before the culture results were back. Will start her on Levaquin. She comes in today for further evaluation of her ulcer. She denies fever, chills, nausea or vomiting. Progress of Wound: Lower abdominal/pannus ulcer is a beefy pink and stable. The ulcer is located in the most dependent portion of her pannus, there is pitting edema present. She states she has a difficult time keeping a dressing on this area, it tends to fall off. She is experiencing some clear sticky drainage from this area. The ulcer appearance actually looks dry. The ulcer on her left lateral abdomen pannus skin fold is slightly smaller in size and very superficial. The right lateral abdomen in the pannus skin fold is also stable with no hypergranulation tissue present at this time and is stable. She has been placing iodoform gauze into her umbilicus stalk to help absorb the drainage that is present. She has also been removed from the bariatric surgery option but has been placed in the obesity management and is scheduled to see them at the end of February. Objective Data Objective Data Vital Signs: Vital Signs Temp Pulse Resp BP O2 Del Method 97.1 F L 72 16 140/57 H Room Air 01/10/24 13:19 01/10/24 13:19 01/10/24 13:19 01/10/24 13:19 01/10/24 13:19 Oxygen Delivery Method Room Air Weight: 433 lb Body Mass Index (BMI) 72.0 Charges/Coding Procedures Integumentary 111xxx-113xx: 29430 Silvia subq tissue 20 sq cm/< Add On Codes: 20651 Silvia subq tissue add-on (x2) Debridement Note Debridement Note Wound debrided: Lower abdominal pannus Laterality: Not Applicable Wound Grade/Stage: Stage III Type of Debridement: Excisional debridement Anesthesia Used: 5% Lidocaine Gel Depth: Down to and including healthy tissue and in the subcutaneous layer Percentage of wound debrided: 100 Instrument Used: 7mm curette Tissue Removed: Non viable tissue and slough Severity: Fat Layer Exposed Amount of bleeding with debridement: Mild Bleeding Controlled with: Compression and gauze Patient tolerated procedure: Patient tolerated procedure well Post-Debridement Measurements and Additional Note: Post-Debridement Measurements/Treatment - Nurse 1 - General Ulcer Assessment Start: 01/10/24 13:19 Freq: Status: Active Protocol: [email or web address] Activity Type Activity Date Activity User E-sign Co-sign Detail Recorded Client Recorded Date Recorded By Document 01/10/24 13:19 [facility] [id number] 01/10/24 13:27 [facility] 01/10/24 13:19 - Today's Visit Information Type of service Follow-up Visit (Physician/HEAD STOCK OPERATOR ) Arrival Mode Ambulatory, Wheelchair Transfer Assistance None Patient Identification Verified (Name & Yes ) Patient Requires Transmission-Based No Precautions Height and Weight Body Mass Index (BMI) 72.0 BMI Classification Obese Vital Signs Temperature (97.8 F-99.1 F) 97.1 F L Temperature Source Temporal Pulse Rate (60-100) 72 Pulse Location Monitor Respiratory Rate (12-18) 16 Respiratory rate source Observation Oxygen Delivery Method Room Air Blood Pressure (90/60-120/80) 140/57 H Blood Pressure Mean (mm Hg) 84 Source Monitor Position Sitting Blood Pressure Location Left Forearm History Since Last Visit- (Skip if this is Patient's initial visit) Have you changed medications since your Yes last visit? Any new allergies or adverse reactions No Had a fall/change in ADL's that may No increase risk of falls Signs or symptoms of abuse and/or No neglect since last visit Have you been in the hospital since your No last visit? Has dressing in place as prescribed Yes Has compression in place as prescribed N/A Has offloadiing in place as prescribed N/A Experienced any changes in pain level or No management Left Footwear Regular Shoe Right Footwear Regular Shoe Pain Scale: 0-10 Numeric Is Patient Pain Free? Yes WC - Nurse 1 - General Ulcer Measurement Start: 01/10/24 13:19 Freq: Status: Active Protocol: Activity Type Activity Date Activity User E-sign Co-sign Detail Recorded Client Recorded Date Recorded By Document 01/10/24 13:19 [facility] [id number] 01/10/24 13:27 [facility] 01/10/24 13:19 Wound Center Nurse 1 4-right side abd -Combined with other wound No -Current Size (cm) - Length 1.5 -Current Size (cm) - Width 2 -Current Size (cm) - Depth 0.1 -Total Square Cm 3.0 -Date of Last Picture (Recall this 01/10/24 field) -Photo Taken Yes -Epithelialization None Present -Tunneling No -Undermining/Tunneling No -Circular Undermining No -Exudate Amt Medium -Exudate Type Serosanguineous -Wound Margin Flat & Intact -Granulation Amt Large (67-100%) -Granulation Quality Red -Slough/Fibrin No -Necrosis Amt None Present (0 %) -Texture (Sera-wound Skin Appearance) Assessed, Scarring -Moisture (Sera-wound Skin Appearance) Assessed -Color (Sera-wound Skin Appearance) Assessed -Temperature (Sera-wound Skin No Abnormality Appearance) (Pt Warm) -Tenderness on Palpation (Sera-wound No Skin Appearance) -Ulcer Cleansing Soap and Water -Foul Odor after Cleansing No -Anesthetic Used 5% Lidocaine Gel 3-left side abd -Combined with other wound No -Current Size (cm) - Length 0.8 -Current Size (cm) - Width 0.5 -Current Size (cm) - Depth 0.1 -Total Square Cm 0.40 -Date of Last Picture (Recall this 01/10/24 field) -Photo Taken Yes -Epithelialization None Present -Tunneling No -Undermining/Tunneling No -Circular Undermining No -Exudate Amt Medium -Exudate Type Serosanguineous -Wound Margin Distinct, Outline Attached -Granulation Amt Large (67-100%) -Granulation Quality Red -Slough/Fibrin No -Necrosis Amt None Present (0 %) -Texture (Sera-wound Skin Appearance) Assessed, Scarring -Moisture (Sera-wound Skin Appearance) Assessed -Color (Sera-wound Skin Appearance) Assessed -Temperature (Sera-wound Skin No Abnormality Appearance) (Pt Warm) -Tenderness on Palpation (Sera-wound No Skin Appearance) -Ulcer Cleansing Soap and Water -Foul Odor after Cleansing No -Anesthetic Used 5% Lidocaine Gel #2 ABD -Combined with other wound No -Current Size (cm) - Length 6 -Current Size (cm) - Width 6 -Current Size (cm) - Depth 0.2 -Total Square Cm 36 -Date of Last Picture (Recall this 01/10/24 field) -Photo Taken Yes -Epithelialization None Present -Tunneling No -Undermining/Tunneling No -Circular Undermining No -Exudate Amt Large -Exudate Type Serosanguineous -Wound Margin Distinct, Outline Attached -Granulation Amt Medium (34-66%) -Granulation Quality Red -Slough/Fibrin Yes -Necrosis Amt Small (1-33%) -Necrotic Tissue Type Adherent Slough -Texture (Sera-wound Skin Appearance) Assessed, Scarring -Moisture (Sera-wound Skin Appearance) Assessed -Color (Sera-wound Skin Appearance) Assessed -Temperature (Sera-wound Skin No Abnormality Appearance) (Pt Warm) -Tenderness on Palpation (Sera-wound No Skin Appearance) -Ulcer Cleansing Soap and Water -Foul Odor after Cleansing No -Anesthetic Used 5% Lidocaine Gel - Nurse 2 - General Ulcer CM Notes Start: 01/10/24 13:19 Freq: Status: Active Protocol: Activity Type Activity Date Activity User E-sign Co-sign Detail Recorded Client Recorded Date Recorded By Document 01/10/24 13:55 [facility] 01/10/24 14:05 06/05/24 13:55 Wound Center Nurse 2 4-right side abd -Time 13:56 -Correct Patient Yes -Correct Side, Site, Position Yes -Correct Procedure Yes -Procedure Performed Yes -Type of Procedure Debridement -Clinical Debridement Subcutaneous -Tissue Removed Subcutaneous -Post Debridement (cm) - Length 2.0 -Post Debridement (cm) - Width 1.5 -Post Debridement (cm) - Depth 0.2 -Total Square (Post) (cm) 3.00 -Area of Debridement (cm) - Length 2.0 -Area of Debridement (cm) - Width 1.5 -Total Square (Area) (cm) 3.00 -Tunneling No -Undermining/Tunneling No -Circular Undermining No -Wound/Ulcer Outcome Not Healed -Ulcer Cleansing Rinsed/ Irrigated with Saline -Foul Odor after Cleansing No -Bioengineered Tissue No -Bleeding Controlled with Pressure -Treatment Response Procedure Tolerated Well -Debridement - Subq, 1st 20sq cm No 3-left side abd -Time 13:56 -Correct Patient Yes -Correct Side, Site, Position Yes -Correct Procedure Yes -Procedure Performed Yes -Type of Procedure Debridement -Clinical Debridement Subcutaneous -Tissue Removed Subcutaneous -Post Debridement (cm) - Length 0.6 -Post Debridement (cm) - Width 0.5 -Post Debridement (cm) - Depth 0.1 -Total Square (Post) (cm) 0.30 -Area of Debridement (cm) - Length 0.6 -Area of Debridement (cm) - Width 0.5 -Total Square (Area) (cm) 0.30 -Tunneling No -Undermining/Tunneling No -Circular Undermining No -Wound/Ulcer Outcome Not Healed -Ulcer Cleansing Rinsed/ Irrigated with Saline -Foul Odor after Cleansing No -Bleeding Controlled with Pressure -Treatment Response Procedure Tolerated Well -Debridement - Subq, 1st 20sq cm No #2 ABD -Time 13:56 -Correct Patient Yes -Correct Side, Site, Position Yes -Correct Procedure Yes -Procedure Performed Yes -Type of Procedure Debridement -Clinical Debridement Subcutaneous -Tissue Removed Subcutaneous -Post Debridement (cm) - Length 6.0 -Post Debridement (cm) - Width 6.4 -Post Debridement (cm) - Depth 0.2 -Total Square (Post) (cm) 38.40 -Area of Debridement (cm) - Length 6.0 -Area of Debridement (cm) - Width 6.4 -Total Square (Area) (cm) 38.40 -Tunneling No -Undermining/Tunneling No -Wound/Ulcer Outcome Not Healed -Ulcer Cleansing Rinsed/ Irrigated with Saline -Foul Odor after Cleansing No -Bleeding Controlled with Pressure -Treatment Response Procedure Tolerated Well -Debridement - Subq, 1st 20sq cm Yes -Debridement, SubQ, ea addt'l 20sq cm 2 or part thereof Pain Scale: 0-10 Numeric Is Patient Pain Free? Yes Additional Wound Wound debrided: lateral abdominal ulcer in skin fold Laterality: Right Wound Grade/Stage: Stage III Type of Debridement: Excisional debridement Anesthesia Used: 5% Lidocaine Gel Depth: Down to and including healthy tissue and in the subcutaneous layer Percentage of wound debrided: 100 Instrument Used: 5mm curette Tissue Removed: Non viable tissue and slough Severity: Fat Layer Exposed Amount of bleeding with debridement: Mild Bleeding Controlled with: Pressure and Compression and gauze Patient tolerated procedure: Patient tolerated procedure well Additional Wound Wound debrided: lateral abdominal ulcer Laterality: Left Wound Grade/Stage: Stage III Type of Debridement: Excisional debridement Anesthesia Used: 5% Lidocaine Gel Depth: Down to and including healthy tissue and in the subcutaneous layer Percentage of wound debrided: 100 Instrument Used: 3mm curette Tissue Removed: Non viable tissue and slough Severity: Fat Layer Exposed Amount of bleeding with debridement: Mild Bleeding Controlled with: Compression and gauze Patient tolerated procedure: Patient tolerated procedure well Assessment/Plan Assessment/Plan (1) Skin ulcer of abdominal wall with fat layer exposed: CODE(S): L98.492 - Non-pressure chronic ulcer of skin of other sites with fat layer exposed (2) Obesity: CODE(S): E66.9 - Obesity, unspecified QUALIFIERS: Obesity type: due to excess calories Obesity classification: adult class 3 (BMI >= 40) Serious obesity comorbidity presence: with serious comorbidity Body mass index: BMI 70 or greater Qualified Code(s): E66.01 - Morbid (severe) obesity due to excess calories; Z68.45 - Body mass index [BMI] 70 or greater, adult (3) Umbilicus discharge: CODE(S): R19.8 - Other specified symptoms and signs involving the digestive system and abdomen (4) Yeast infection of the skin: CODE(S): B37.2 - Candidiasis of skin and nail PLAN: Plan Patient evaluated at the wound healing center today. Wound care for the ulcers on her right and left lateral abdomen and the lower abdomen/pannus area place Silvercel/silver alginate daily covered with gauze/ABD daily to these ulcers after washing with soap and water. For her umbilicus, will continue placing a strip of 1/4 Iodoform gauze to help absorb the moisture and prevent maceration and skin rubbing against itself. She is having issues with assistance with her dressing changes daily. Recommend she come into the wound center for nurses visit 2-3 times per week to have assistance with her dressings and mayber her daughter could help change them the other days at home. She states she will discuss with her daughter to see if this would be helpful. Wound culture were collected [facility] and she was placed on Doxycycline prophylactically. The wound cultures were positive for Pseudomonas aeruginosa, Proteus mirabilis, and Corynebacterium striatum. These bacteria are not sensitive to the Doxycycline. She has finished the Levaquin to cover the Pseudomonas and Proteus. The Corynebacterium is skin contaminant. Reinforced to her to try and elevate her pannus on a pillow so that some of the swelling may decrease in the area that is most dependent. She has seen Dr. Mcgowan in his office to discuss a panniculectomy. With her hernia, it is recommended that she go to a tertiary facility for further surgical options She was scheduled to have an ultrasound of her abdomen at [facility] and it showed an abdominal hernia. She states she was removed from bariatric surgery program and was referred to the obesity medicine, her appointment is at the end of February. She states that she is not able to get enough protein intake and can not afford the protein supplements, therefore, she may not be a candidate for the bariatric surgery. I stressed the importance of increased protein intake for wound healing. The increased protein intake/supplementation is necessary no matter what treatment plan that she decides to have. She will follow up two weeks. She may follow up 2-3 times per week for nurse's visits to help with wound care. Instructed to call if she has any questions or concerns.
[2024-01-12 12:21] VITALS: BP 118/51; PULSE 80; RESP 18; TEMP 36.6; O2SAT 98; BMI 72.0
[2024-01-15 11:04] VITALS: BP 116/63; PULSE 91; RESP 18; TEMP 35.6; BMI 72.0
[2024-01-15 15:41] LABS: Bedside Glucose 147 mg/dL (74-106)
[2024-01-17 13:09] VITALS: BP 126/66; PULSE 83; RESP 18; TEMP 35.6; BMI 72.0
[2024-01-19 11:51] VITALS: BP 134/65; PULSE 68; RESP 20; TEMP 36.1; BMI 72.0
[2024-01-22 11:51] VITALS: BP 144/80; PULSE 69; RESP 18; BMI 72.0
[2024-01-24 14:18] VITALS: BP 143/90; PULSE 66; RESP 18; TEMP 36.6; BMI 72.0
--- NOTE | 2024-01-24 17:14 | PCM.WC.PN ---
History of Present Illness Date of Service: 01/24/24 Chief Complaint: Ulcer on abdomen and leaky belly button. History of Wound: Patient is a 48-year-old female who presented on her pannus. She states that it was just noticed 1 to 2 weeks ago. She is obese and has a difficult time walking due to knee pain. She is able to transfer to and from her wheelchair. She states she is still able to drive. She states that she was bathing a couple weeks ago and discovered this ulcer. She states that it does have drainage. She has been covering it with a disposable pad to absorb the drainage. She also states that she has issues with drainage from her umbilicus. It will sometimes have a strong odor and also will bleed on occasion. She states she has seen dermatology and a general surgeon about this and they stated there was not much to do for this. Dermatology has put her on Ketoconazole cream for rashes in skin folds, that she has not recently been using. While examining her it was discovered that she also has an ulcer on her right lateral abdomen and her left lateral abdomen in a skin fold. She states she has a hard time bathing herself due to the weight of her pannus. She has a history of hypothyroidism, pre diabetes, polycystic ovary, asthma, sleep apnea, an ulcer on her left lower leg, and right knee arthritis. Wound culture obtained 09/12/23 at [facility] and was positive for Pseudomonas aeruginosa, Proteus mirabilis, and Corynebacterium striatum. She was treated with Doxycycline before the culture results were back. Will start her on Levaquin. She comes in today for further evaluation of her ulcer. She denies fever, chills, nausea or vomiting. Progress of Wound: She has been coming into the wound center 3 times a week for nurse visits to assist with her wound care. Lower abdominal/pannus ulcer is pink. The overall appearance has improved with the more frequent nurse visits. The ulcer is located in the most dependent portion of her pannus, there is pitting edema present. The ulcer on her left lateral abdomen pannus skin fold is very superficial and almost healed. The right lateral abdomen in the pannus skin fold appears smaller with no hypergranulation tissue present. She has been placing iodoform gauze into her umbilicus stalk to help absorb the drainage that is present. She has been removed from the bariatric surgery option but has been placed in the obesity management and is scheduled to see them at the end of February. Objective Data Objective Data Vital Signs: Vital Signs Temp Pulse Resp BP Pulse Ox O2 Del Method 98 F 66 18 143/90 H 98 Room Air 01/24/24 14:18 01/24/24 14:18 01/24/24 14:18 01/24/24 14:18 01/12/24 12:21 01/24/24 14:18 Oxygen Delivery Method Room Air Weight: 433 lb Body Mass Index (BMI) 72.0 Charges/Coding Procedures Integumentary 111xxx-113xx: 71976 Silvia subq tissue 20 sq cm/< Add On Codes: 98288 Silvia subq tissue add-on Debridement Note Debridement Note Wound debrided: Lower abdominal pannus Laterality: Not Applicable Wound Grade/Stage: Stage III Type of Debridement: Excisional debridement Anesthesia Used: 5% Lidocaine Gel Depth: Down to and including healthy tissue and in the subcutaneous layer Percentage of wound debrided: 100 Instrument Used: 7mm curette Tissue Removed: Non viable tissue and slough Severity: Fat Layer Exposed Amount of bleeding with debridement: Mild Bleeding Controlled with: Compression and gauze Patient tolerated procedure: Patient tolerated procedure well Post-Debridement Measurements and Additional Note: Post-Debridement Measurements/Treatment WC - Nurse 1 - General Ulcer Assessment Start: 01/10/24 13:19 Freq: Status: Active Protocol: [email or web address] Activity Type Activity Date Activity User E-sign Co-sign Detail Recorded Client Recorded Date Recorded By Document 01/10/24 13:19 [facility] [id number] 01/10/24 13:27 [facility] Document 01/12/24 12:21 RB wound center 01/12/24 12:33 RB Document 01/15/24 11:04 KW [id number] 01/15/24 11:41 KW Document 01/17/24 13:09 KW wound center 01/17/24 13:18 KW Document 01/19/24 11:51 KW [id number] 01/19/24 11:53 KW Document 01/22/24 11:51 DL [id number] 01/22/24 11:53 DL Document 01/24/24 [id number] 01/24/24 14:32 [place] 0601/12/24 01/15/24 13:19 12:21 11:04 WC - Today's Visit Information Type of service Follow-up Visit Nurse-only Nurse-only (Physician/STEREO OPERATOR Visit Visit ) Arrival Mode Ambulatory, Ambulatory Wheelchair Wheelchair Transfer Assistance None None Accompanied by daughter Patient Identification Verified (Name & Yes Yes Yes ) Patient Requires Transmission-Based No No Precautions Safety Precautions Finger Stick Blood Sugar(mg/dl) (if 147 indicated): Blood Sugar Done During this Visit Height and Weight Body Mass Index (BMI) 72.0 72.0 72.0 BMI Classification Obese Obese Obese Vital Signs Temperature (97.8 F-99.1 F) 97.1 F L 98 F 96.1 F L Temperature Source Temporal Temporal Temporal Pulse Rate (60-100) 72 80 91 Pulse Location Monitor Monitor Apical Respiratory Rate (12-18) 16 18 18 Respiratory rate source Observation Observation Observation Pulse Oximetry 98 Oxygen Delivery Method Room Air Room Air Room Air Blood Pressure (90/60-120/80) 140/57 H 118/51 L 116/63 Blood Pressure Mean (mm Hg) 84 73 80 Source Monitor Monitor Monitor Position Sitting Semi-Fowlers Sitting Blood Pressure Location Left Forearm Left Arm Left Forearm History Since Last Visit- (Skip if this is Patient's initial visit) Have you changed medications since your Yes No No last visit? Any new allergies or adverse reactions No No No Had a fall/change in ADL's that may No No No increase risk of falls Signs or symptoms of abuse and/or No No No neglect since last visit Have you been in the hospital since your No No No last visit? Has dressing in place as prescribed Yes Yes No Has compression in place as prescribed N/A No N/A Has offloadiing in place as prescribed N/A No N/A Experienced any changes in pain level or No No No management Left Footwear Regular Shoe Regular Shoe Right Footwear Regular Shoe Regular Shoe Pain Scale: 0-10 Numeric Is Patient Pain Free? Yes Yes Yes 01/17/24 01/19/24 01/22/24 13:09 11:51 11:51 - Today's Visit Information Type of service Nurse-only Nurse-only Nurse-only Visit Visit Visit Arrival Mode Wheelchair Wheelchair Ambulatory, Wheelchair Transfer Assistance Accompanied by daughter Patient Identification Verified (Name & Yes Yes Yes ) Patient Requires Transmission-Based Precautions Safety Precautions Finger Stick Blood Sugar(mg/dl) (if indicated): Blood Sugar Height and Weight Body Mass Index (BMI) 72.0 72.0 72.0 BMI Classification Obese Obese Obese Vital Signs Temperature (97.8 F-99.1 F) 96.1 F L 97.0 F L Temperature Source Temporal Temporal Pulse Rate (60-100) 83 68 69 Pulse Location Monitor Monitor Monitor Respiratory Rate (12-18) 18 20 H 18 Respiratory rate source Observation Observation Observation Pulse Oximetry Oxygen Delivery Method Room Air Room Air Room Air Blood Pressure (90/60-120/80) 126/66 H 134/65 H 144/80 H Blood Pressure Mean (mm Hg) 86 88 101 Source Monitor Monitor Monitor Position Sitting Sitting Sitting Blood Pressure Location Left Forearm Left Forearm Left Arm History Since Last Visit- (Skip if this is Patient's initial visit) Have you changed medications since your No No No last visit? Any new allergies or adverse reactions No No No Had a fall/change in ADL's that may No No No increase risk of falls Signs or symptoms of abuse and/or No No No neglect since last visit Have you been in the hospital since your No No No last visit? Has dressing in place as prescribed Yes Yes Yes Has compression in place as prescribed N/A N/A N/A Has offloadiing in place as prescribed N/A N/A N/A Experienced any changes in pain level or No No No management Left Footwear Regular Shoe Regular Shoe Regular Shoe Right Footwear Regular Shoe Regular Shoe Regular Shoe Pain Scale: 0-10 Numeric Is Patient Pain Free? Yes Yes Yes 01/24/24 14:18 WC - Today's Visit Information Type of service Follow-up Visit (Physician/STEREO OPERATOR ) Arrival Mode Ambulatory Transfer Assistance Accompanied by self Patient Identification Verified (Name & Yes ) Patient Requires Transmission-Based Precautions Safety Precautions Fall Prevention Finger Stick Blood Sugar(mg/dl) (if indicated): Blood Sugar Height and Weight Body Mass Index (BMI) 72.0 BMI Classification Obese Vital Signs Temperature (97.8 F-99.1 F) 98 F Temperature Source Temporal Pulse Rate (60-100) 66 Pulse Location Monitor Respiratory Rate (12-18) 18 Respiratory rate source Observation Pulse Oximetry Oxygen Delivery Method Room Air Blood Pressure (90/60-120/80) 143/90 H Blood Pressure Mean (mm Hg) 107 Source Monitor Position Sitting Blood Pressure Location Right Arm History Since Last Visit- (Skip if this is Patient's initial visit) Have you changed medications since your last visit? Any new allergies or adverse reactions Had a fall/change in ADL's that may increase risk of falls Signs or symptoms of abuse and/or neglect since last visit Have you been in the hospital since your last visit? Has dressing in place as prescribed Yes Has compression in place as prescribed N/A Has offloadiing in place as prescribed N/A Experienced any changes in pain level or No management Left Footwear Regular Shoe Right Footwear Regular Shoe Pain Scale: 0-10 Numeric Is Patient Pain Free? Yes WC - Nurse 1 - General Ulcer Measurement Start: 01/10/24 13:19 Freq: Status: Active Protocol: Activity Type Activity Date Activity User E-sign Co-sign Detail Recorded Client Recorded Date Recorded By Document 01/10/24 13:19 [facility] [id number] 01/10/24 13:27 [facility] Document 01/12/24 12:21 wound center 01/12/24 12:33 RB Document 01/24/24 14:18 [place] [id number] 01/24/24 14:32 [place] 01/10/24 01/12/24 01/24/24 13:19 12:21 14:18 Wound Center Nurse 1 4-right side abd -Combined with other wound No -Current Size (cm) - Length 1.5 2 -Current Size (cm) - Width 2 1 -Current Size (cm) - Depth 0.1 0.1 -Total Square Cm 3.0 2 -Date of Last Picture (Recall this 01/10/24 field) -Photo Taken Yes -Epithelialization None Present -Tunneling No No -Undermining/Tunneling No No -Circular Undermining No No -Exudate Amt Medium Medium -Exudate Type Serosanguineous Serosanguineous -Wound Margin Flat & Intact Distinct, Flat & Intact Outline Attached -Granulation Amt Large (67-100%) Medium (34-66%) Large (67-100%) -Granulation Quality Red [place] Pale,[place] -Slough/Fibrin No Yes -Necrosis Amt None Present (0 Medium (34-66%) None Present (0 %) %) -Necrotic Tissue Type Adherent Slough -Structure Exposed N/A -Texture (Sera-wound Skin Appearance) Assessed, Assessed Assessed Scarring -Moisture (Sera-wound Skin Appearance) Assessed Assessed -Color (Sera-wound Skin Appearance) Assessed Assessed Assessed -Temperature (Sera-wound Skin No Abnormality No Abnormality No Abnormality Appearance) (Pt Warm) (Pt Warm) (Pt Warm) -Tenderness on Palpation (Sera-wound No No Skin Appearance) -Ulcer Cleansing Soap and Water Wound Cleanser Soap and Water -Foul Odor after Cleansing No No No -Anesthetic Used 5% Lidocaine 5% Lidocaine Gel Gel 3-left side abd -Combined with other wound No -Combined with (Name of Wound-Exactly 1.5 as it is documented) -Current Size (cm) - Length 0.8 0.2 -Current Size (cm) - Width 0.5 0.1 -Current Size (cm) - Depth 0.1 -Total Square Cm 0.40 0.02 -Date of Last Picture (Recall this 01/10/24 field) -Photo Taken Yes -Epithelialization None Present -Tunneling No No -Undermining/Tunneling No No -Circular Undermining No No -Exudate Amt Medium Medium Small -Exudate Type Serosanguineous Serosanguineous Serous -Wound Margin Distinct, Distinct, Flat & Intact Outline Outline Attached Attached -Granulation Amt Large (67-100%) Medium (34-66%) Large (67-100%) -Granulation Quality Red [place] Pale,[place] -Slough/Fibrin No Yes -Necrosis Amt None Present (0 Medium (34-66%) %) -Necrotic Tissue Type Adherent Slough -Structure Exposed N/A -Texture (Sera-wound Skin Appearance) Assessed, Assessed Assessed Scarring -Moisture (Sera-wound Skin Appearance) Assessed Assessed Assessed -Color (Sera-wound Skin Appearance) Assessed Assessed Assessed -Temperature (Sera-wound Skin No Abnormality No Abnormality No Abnormality Appearance) (Pt Warm) (Pt Warm) (Pt Warm) -Tenderness on Palpation (Sera-wound No No No Skin Appearance) -Ulcer Cleansing Soap and Water Wound Cleanser Soap and Water -Foul Odor after Cleansing No No No -Anesthetic Used 5% Lidocaine 5% Lidocaine Gel Gel #2 ABD -Combined with other wound No -Current Size (cm) - Length 6 6 -Current Size (cm) - Width 6 5.5 -Current Size (cm) - Depth 0.2 0.1 -Total Square Cm 36 33.0 -Date of Last Picture (Recall this 01/10/24 field) -Photo Taken Yes -Epithelialization None Present -Tunneling No No -Undermining/Tunneling No No -Circular Undermining No No -Exudate Amt Large Medium Medium -Exudate Type Serosanguineous Serosanguineous Serosanguineous -Wound Margin Distinct, Distinct, Flat & Intact Outline Outline Attached Attached -Granulation Amt Medium (34-66%) Medium (34-66%) Large (67-100%) -Granulation Quality Red [place] Pale,[place] -Slough/Fibrin Yes Yes No -Necrosis Amt Small (1-33%) Medium (34-66%) -Necrotic Tissue Type Adherent Slough Adherent Slough -Structure Exposed N/A -Texture (Sera-wound Skin Appearance) Assessed, Assessed Assessed Scarring -Moisture (Sera-wound Skin Appearance) Assessed Assessed Assessed -Color (Sera-wound Skin Appearance) Assessed Assessed Assessed -Temperature (Sera-wound Skin No Abnormality No Abnormality No Abnormality Appearance) (Pt Warm) (Pt Warm) (Pt Warm) -Tenderness on Palpation (Sera-wound No No No Skin Appearance) -Ulcer Cleansing Soap and Water Wound Cleanser Soap and Water -Foul Odor after Cleansing No No No -Anesthetic Used 5% Lidocaine 5% Lidocaine Gel Gel Lower Limb Edema Present NA - Nurse 2 - General Ulcer CM Notes Start: 01/10/24 13:19 Freq: Status: Active Protocol: Activity Type Activity Date Activity User E-sign Co-sign Detail Recorded Client Recorded Date Recorded By Document 01/10/24 13:55 [facility] 01/10/24 14:05 Document 01/24/24 14:41 [facility] 01/24/24 14:44 01/10/24 01/24/24 13:55 14:41 Wound Center Nurse 2 4-right side abd -Time 13:56 14:41 -Correct Patient Yes Yes -Correct Side, Site, Position Yes Yes -Correct Procedure Yes Yes -Procedure Performed Yes Yes -Type of Procedure Debridement Debridement -Clinical Debridement Subcutaneous Subcutaneous -Tissue Removed Subcutaneous Subcutaneous -Post Debridement (cm) - Length 2.0 1.5 -Post Debridement (cm) - Width 1.5 1.0 -Post Debridement (cm) - Depth 0.2 0.1 -Total Square (Post) (cm) 3.00 1.50 -Area of Debridement (cm) - Length 2.0 1.5 -Area of Debridement (cm) - Width 1.5 1.0 -Total Square (Area) (cm) 3.00 1.50 -Tunneling No No -Undermining/Tunneling No No -Circular Undermining No No -Wound/Ulcer Outcome Not Healed Not Healed -Ulcer Cleansing Rinsed/ Rinsed/ Irrigated with Irrigated with Saline Saline -Foul Odor after Cleansing No No -Bioengineered Tissue No No -Bleeding Controlled with Pressure Pressure -Treatment Response Procedure Procedure Tolerated Well Tolerated Well -Debridement - Subq, 1st 20sq cm No No 3-left side abd -Time 13:56 14:42 -Correct Patient Yes Yes -Correct Side, Site, Position Yes Yes -Correct Procedure Yes Yes -Procedure Performed Yes Yes -Type of Procedure Debridement Debridement -Clinical Debridement Subcutaneous Subcutaneous -Tissue Removed Subcutaneous Subcutaneous -Post Debridement (cm) - Length 0.6 0.5 -Post Debridement (cm) - Width 0.5 1.5 -Post Debridement (cm) - Depth 0.1 0.1 -Total Square (Post) (cm) 0.30 0.75 -Area of Debridement (cm) - Length 0.6 0.5 -Area of Debridement (cm) - Width 0.5 1.5 -Total Square (Area) (cm) 0.30 0.75 -Tunneling No No -Undermining/Tunneling No No -Circular Undermining No No -Wound/Ulcer Outcome Not Healed Not Healed -Ulcer Cleansing Rinsed/ Rinsed/ Irrigated with Irrigated with Saline Saline -Foul Odor after Cleansing No -Bioengineered Tissue No -Bleeding Controlled with Pressure Pressure -Treatment Response Procedure Procedure Tolerated Well Tolerated Well -Debridement - Subq, 1st 20sq cm No No #2 ABD -Time 13:56 14:43 -Correct Patient Yes Yes -Correct Side, Site, Position Yes Yes -Correct Procedure Yes Yes -Procedure Performed Yes Yes -Type of Procedure Debridement Debridement -Clinical Debridement Subcutaneous Subcutaneous -Tissue Removed Subcutaneous Subcutaneous -Post Debridement (cm) - Length 6.0 5 -Post Debridement (cm) - Width 6.4 6 -Post Debridement (cm) - Depth 0.2 0.2 -Total Square (Post) (cm) 38.40 30 -Area of Debridement (cm) - Length 6.0 5 -Area of Debridement (cm) - Width 6.4 6 -Total Square (Area) (cm) 38.40 30 -Tunneling No No -Undermining/Tunneling No No -Circular Undermining No -Wound/Ulcer Outcome Not Healed Not Healed -Ulcer Cleansing Rinsed/ Rinsed/ Irrigated with Irrigated with Saline Saline -Foul Odor after Cleansing No No -Bleeding Controlled with Pressure Pressure -Treatment Response Procedure Procedure Tolerated Well Tolerated Well -Debridement - Subq, 1st 20sq cm Yes Yes -Debridement, SubQ, ea addt'l 20sq cm 2 1 or part thereof Pain Scale: 0-10 Numeric Is Patient Pain Free? Yes Yes WC - Nurse 3 - General Ulcer D/C NN Start: 01/10/24 13:19 Freq: Status: Active Protocol: Activity Type Activity Date Activity User E-sign Co-sign Detail Recorded Client Recorded Date Recorded By Document 01/10/24 16:02 DL [id number] 01/10/24 16:04 DL Document 01/12/24 12:21 RB wound center 01/12/24 12:33 RB Document 01/15/24 11:04 KW [id number] 01/15/24 11:41 KW Document 01/17/24 13:09 KW wound center 01/17/24 13:18 KW Document 01/19/24 11:51 KW [id number] 01/19/24 11:53 KW Document 01/22/24 11:51 DL [id number] 01/22/24 11:53 DL Document 01/24/24 15:02 [facility] [id number] 01/24/24 15:03 [facility] 01/10/24 01/12/24 01/15/24 16:02 12:21 11:04 Wound Care Center Nurse 3 4-right side abd -Ulcer Cleansing Rinsed/ Wound Cleanser Soap and Water Irrigated with Saline -Foul Odor after Cleansing No -Primary Dressing Applied Mepilex Border, Silvercel Silvercel -Other Dressing pt own silvercel -Primary Dressing Covered/Secured with Dry Gauze, Dry Gauze, Secured with Secured with Tape Tape -Mepilex Border 1 -Silvercel 1 1 3-left side abd -Ulcer Cleansing Rinsed/ Wound Cleanser Soap and Water Irrigated with Saline -Foul Odor after Cleansing -Primary Dressing Applied Mepilex Border -Other Dressing silvercell silvercel silvercel -Primary Dressing Covered/Secured with Dry Gauze Dry Gauze, Secured with Tape -Mepilex Border 1 -Silvercel #2 ABD -Ulcer Cleansing Rinsed/ Wound Cleanser Soap and Water Irrigated with Saline -Foul Odor after Cleansing No -Primary Dressing Applied Mepilex Border Mepilex Border, Nugauze, Iodoform 1/2in -Other Dressing silvercell silvercel -Primary Dressing Covered/Secured with Dry Gauze Dry Gauze -Mepilex Border 1 1 -Nugauze, Iodoform 1/2in 1 -Silvercel -Wound Comment(s) 1/2 iodoform packed into umbilus covered with mepilex bprdered foam Treatment Response Procedure Procedure Tolerated Well Tolerated Well Vital Signs Temperature (97.8 F-99.1 F) 98 F 96.1 F L Temperature Source Temporal Temporal Pulse Rate (60-100) 80 91 Pulse Location Monitor Apical Respiratory Rate (12-18) 18 18 Respiratory rate source Observation Observation Pulse Oximetry 98 Oxygen Delivery Method Room Air Room Air Blood Pressure (90/60-120/80) 118/51 L 116/63 Blood Pressure Mean (mm Hg) 73 80 Source Monitor Monitor Position Semi-Fowlers Sitting Blood Pressure Location Left Arm Left Forearm Pain Scale: 0-10 Numeric Is Patient Pain Free? Yes Yes Yes WC - Visit Discharge Discharge Condition Stable Stable Stable Ambulatory Status Ambulatory, Ambulatory,Cane Wheelchair Wheelchair Transportation Private Auto Private Auto Private Auto Accompanied by Medication Reconcilliation completed & No No provided to patient/care provider Clinical Summary of Care Provided Yes Yes Notes: pt states for the past several days she was feeling chilled and sweaty . pt states she just sarted farxiga 2 weeks ago. pt skin was cool and calmy to touch . pt blood sugar taken and 147. pt instructed to call PCP or go to emergency room if no improvement. pt agreed to contact PCP about above. 01/17/24 01/19/24 01/22/24 13:09 11:51 11:51 Wound Care Center Nurse 3 4-right side abd -Ulcer Cleansing Soap and Water Soap and Water -Foul Odor after Cleansing -Primary Dressing Applied Silvercel Silvercel -Other Dressing pt own silvercel -Primary Dressing Covered/Secured with Dry Gauze, Dry Gauze, Dry Gauze, Secured with Secured with Secured with Tape Tape Tape -Mepilex Border -Silvercel 1 1 3-left side abd -Ulcer Cleansing Soap and Water -Foul Odor after Cleansing -Primary Dressing Applied -Other Dressing pt own silvercel -Primary Dressing Covered/Secured with Dry Gauze, Dry Gauze, Dry Gauze, Secured with Secured with Secured with Tape Tape Tape -Mepilex Border -Silvercel #2 ABD -Ulcer Cleansing Soap and Water -Foul Odor after Cleansing -Primary Dressing Applied -Other Dressing PT OWN IODOFORM pt own drsg -Primary Dressing Covered/Secured with Dry Gauze, Dry Gauze, Dry Gauze, Secured with Secured with Secured with Tape Tape Tape -Mepilex Border -Nugauze, Iodoform 1/2in -Silvercel -Wound Comment(s) Treatment Response Vital Signs Temperature (97.8 F-99.1 F) 96.1 F L 97.0 F L Temperature Source Temporal Temporal Pulse Rate (60-100) 83 68 69 Pulse Location Monitor Monitor Monitor Respiratory Rate (12-18) 18 20 H 18 Respiratory rate source Observation Observation Observation Pulse Oximetry Oxygen Delivery Method Room Air Room Air Room Air Blood Pressure (90/60-120/80) 126/66 H 134/65 H 144/80 H Blood Pressure Mean (mm Hg) 86 88 101 Source Monitor Monitor Monitor Position Sitting Sitting Sitting Blood Pressure Location Left Forearm Left Forearm Left Arm Pain Scale: 0-10 Numeric Is Patient Pain Free? Yes Yes Yes WC - Visit Discharge Discharge Condition Stable Stable Stable Ambulatory Status Wheelchair Wheelchair Wheelchair Transportation Private Auto Private Auto Private Auto Accompanied by Medication Reconcilliation completed & No No No provided to patient/care provider Clinical Summary of Care Provided Yes Yes Yes Notes: 01/24/24 15:02 Wound Care Center Nurse 3 4-right side abd -Ulcer Cleansing Rinsed/ Irrigated with Saline -Foul Odor after Cleansing No -Primary Dressing Applied Mepilex Border, Silvercel -Other Dressing -Primary Dressing Covered/Secured with -Mepilex Border 1 -Silvercel 1 3-left side abd -Ulcer Cleansing Rinsed/ Irrigated with Saline -Foul Odor after Cleansing No -Primary Dressing Applied Mepilex Border, Silvercel -Other Dressing -Primary Dressing Covered/Secured with -Mepilex Border 1 -Silvercel 0 #2 ABD -Ulcer Cleansing Rinsed/ Irrigated with Saline -Foul Odor after Cleansing No -Primary Dressing Applied Silvercel -Other Dressing abd -Primary Dressing Covered/Secured with Dry Gauze, Secured with Tape -Mepilex Border -Nugauze, Iodoform 1/2in -Silvercel 0 -Wound Comment(s) Treatment Response Procedure Tolerated Well Vital Signs Temperature (97.8 F-99.1 F) Temperature Source Pulse Rate (60-100) Pulse Location Respiratory Rate (12-18) Respiratory rate source Pulse Oximetry Oxygen Delivery Method Blood Pressure (90/60-120/80) Blood Pressure Mean (mm Hg) Source Position Blood Pressure Location Pain Scale: 0-10 Numeric Is Patient Pain Free? Yes WC - Visit Discharge Discharge Condition Stable Ambulatory Status Wheelchair Transportation Private Auto Accompanied by [place] Medication Reconcilliation completed & provided to patient/care provider Clinical Summary of Care Provided Notes: Additional Wound Wound debrided: lateral abdominal ulcer in skin fold Laterality: Right Wound Grade/Stage: Stage III Type of Debridement: Excisional debridement Anesthesia Used: 5% Lidocaine Gel Depth: Down to and including healthy tissue and in the subcutaneous layer Percentage of wound debrided: 100 Instrument Used: 3mm curette Tissue Removed: Non viable tissue and slough Severity: Fat Layer Exposed Amount of bleeding with debridement: Mild Bleeding Controlled with: Pressure and Compression and gauze Patient tolerated procedure: Patient tolerated procedure well Additional Wound Wound debrided: lateral abdominal ulcer Laterality: Left Wound Grade/Stage: Stage III Type of Debridement: Excisional debridement Anesthesia Used: 5% Lidocaine Gel Depth: Down to and including healthy tissue and in the subcutaneous layer Percentage of wound debrided: 100 Instrument Used: 3mm curette Tissue Removed: Non viable tissue and slough Severity: Fat Layer Exposed Amount of bleeding with debridement: Mild Bleeding Controlled with: Compression and gauze Patient tolerated procedure: Patient tolerated procedure well Assessment/Plan Assessment/Plan (1) Skin ulcer of abdominal wall with fat layer exposed: CODE(S): L98.492 - Non-pressure chronic ulcer of skin of other sites with fat layer exposed (2) Obesity: CODE(S): E66.9 - Obesity, unspecified QUALIFIERS: Obesity type: due to excess calories Obesity classification: adult class 3 (BMI >= 40) Serious obesity comorbidity presence: with serious comorbidity Body mass index: BMI 70 or greater Qualified Code(s): E66.01 - Morbid (severe) obesity due to excess calories; Z68.45 - Body mass index [BMI] 70 or greater, adult (3) Umbilicus discharge: CODE(S): R19.8 - Other specified symptoms and signs involving the digestive system and abdomen (4) Yeast infection of the skin: CODE(S): B37.2 - Candidiasis of skin and nail PLAN: Plan Patient evaluated at the wound healing center today. Wound care for the ulcers on her right and left lateral abdomen and the lower abdomen/pannus area place Silvercel/silver alginate daily covered with gauze/ABD/[place] SAP daily to these ulcers after washing with soap and water. For her umbilicus, will continue placing a strip of 1/4 Iodoform gauze to help absorb the moisture and prevent maceration and skin rubbing against itself. She is coming into the wound center for nurses visit 2-3 times per week to have assistance with her dressings and her daughter could help change them the other days at home. Wound culture were collected [facility] and she was placed on Doxycycline prophylactically. The wound cultures were positive for Pseudomonas aeruginosa, Proteus mirabilis, and Corynebacterium striatum. These bacteria are not sensitive to the Doxycycline. She has finished the Levaquin to cover the Pseudomonas and Proteus. The Corynebacterium is skin contaminant. Reinforced to her to try and elevate her pannus on a pillow so that some of the swelling may decrease in the area that is most dependent. She has seen Dr. Mcgowan in his office to discuss a panniculectomy. With her hernia, it is recommended that she go to a tertiary facility for further surgical options She was scheduled to have an ultrasound of her abdomen at [facility] and it showed an abdominal hernia. She states she was removed from bariatric surgery program and was referred to the obesity medicine, her appointment is at the end of February. She states that she is not able to get enough protein intake and can not afford the protein supplements, therefore, she may not be a candidate for the bariatric surgery. I stressed the importance of increased protein intake for wound healing. The increased protein intake/supplementation is necessary no matter what treatment plan that she decides to have. She will follow up one week. She may follow up 2-3 times per week for nurse's visits to help with wound care. Instructed to call if she has any questions or concerns.
[2024-01-26 12:40] VITALS: BP 144/90; PULSE 68; RESP 18; TEMP 36.2; BMI 72.0
[2024-01-29 14:08] VITALS: BP 130/61; PULSE 73; RESP 18; TEMP 35.6; BMI 72.0
--- NOTE | 2024-01-29 14:49 | PN.PCM_ITS ---
History of Present Illness Date of Service: 01/29/24 Chief Complaint: Ulcer on abdomen and leaky belly button. History of Wound: Patient is a 48-year-old female who presented on her pannus. She states that it was just noticed 1 to 2 weeks ago. She is obese and has a difficult time walking due to knee pain. She is able to transfer to and from her wheelchair. She states she is still able to drive. She states that she was bathing a couple weeks ago and discovered this ulcer. She states that it does have drainage. She has been covering it with a disposable pad to absorb the drainage. She also states that she has issues with drainage from her umbilicus. It will sometimes have a strong odor and also will bleed on occasion. She states she has seen dermatology and a general surgeon about this and they stated there was not much to do for this. Dermatology has put her on Ketoconazole cream for rashes in skin folds, that she has not recently been using. While examining her it was discovered that she also has an ulcer on her right lateral abdomen and her left lateral abdomen in a skin fold. She states she has a hard time bathing herself due to the weight of her pannus. She has a history of hypothyroidism, pre diabetes, polycystic ovary, asthma, sleep apnea, an ulcer on her left lower leg, and right knee arthritis. Wound culture obtained 09/12/23 at [facility] and was positive for Pseudomonas aeruginosa, Proteus mirabilis, and Corynebacterium striatum. She was treated wi Doxycycline before the culture results were back. Will start her on Levaquin. She comes in today for further evaluation of her ulcer. She denies fever, chills, nausea or vomiting. Progress of Wound: She has been coming into the wound center 2-3 times a week for nurse visits to assist with her wound care. Lower abdominal/pannus ulcer is pink. The overall appearance has improved with the more frequent nurse visits. The ulcer is located in the most dependent portion of her pannus, there is pitting edema present. The ulcer on her left lateral abdomen pannus skin fold is healed today. The right lateral abdomen in the pannus skin fold appears smaller with no hypergranulation tissue present. She has been placing iodoform gauze into her umbilicus stalk to help absorb the drainage that is present. She has been removed from the bariatric surgery option but has been placed in the obesity management and is scheduled to see them at the end of February. Objective Data Objective Data Vital Signs: Vital Signs Temp Pulse Resp BP Pulse Ox O2 Del Method 96.0 F L 73 18 130/61 H 98 Room Air 01/29/24 14:08 01/29/24 14:08 01/29/24 14:08 01/29/24 14:08 01/12/24 12:21 01/29/24 14:08 Oxygen Delivery Method Room Air Weight: 433 lb Body Mass Index (BMI) 72.0 Charges/Coding Procedures Integumentary 111xxx-113xx: [id number] Silvia subq tissue 20 sq cm/< Add On Codes: 10436 Silvia subq tissue add-on Debridement Note Debridement Note Wound debrided: Lower abdominal pannus Laterality: Not Applicable Wound Grade/Stage: Stage III Type of Debridement: Excisional debridement Anesthesia Used: 5% Lidocaine Gel Depth: Down to and including healthy tissue and in the subcutaneous layer Percentage of wound debrided: 100 Instrument Used: 7mm curette Tissue Removed: Non viable tissue and slough Severity: Fat Layer Exposed Amount of bleeding with debridement: Mild Bleeding Controlled with: Compression and gauze Patient tolerated procedure: Patient tolerated procedure well Post-Debridement Measurements and Additional Note: Post-Debridement Measurements/Treatment WC - Nurse 1 - General Ulcer Assessment Start: 01/10/24 13:19 Freq: Status: Active Protocol: [email or web address] Activity Type Activity Date Activity User E-sign Co-sign Detail Recorded Client Recorded Date Recorded By Document 01/10/24 13:19 [facility] 1606-07-16 01/10/24 13:27 [facility] Document 01/12/24 12:21 RB wound center 01/12/24 12:33 RB Document 01/15/24 11:04 KW [id number] 01/15/24 11:41 KW Document 01/17/24 13:09 KW wound center 01/17/24 13:18 KW Document 01/19/24 11:51 KW [id number] 01/19/24 11:53 KW Document 01/22/24 11:51 DL [id number] 01/22/24 11:53 DL Document 01/24/24 [id number] 01/24/24 14:32 MT Document 01/26/24 12:40 RB [id number] 01/26/24 12:44 RB Document 01/29/24 14:08 KW k 01/29/24 14:16 KW 01/10/24 01/12/24 01/15/24 13:19 12:21 11:04 WC - Today's Visit Information Type of service Follow-up Visit Nurse-only Nurse-only (Physician/LEAD TECHNICAL WRITER Visit Visit ) Arrival Mode Ambulatory, Ambulatory Wheelchair Wheelchair Transfer Assistance None None Accompanied by daughter Patient Identification Verified (Name & Yes Yes Yes ) Patient Requires Transmission-Based No No Precautions Safety Precautions Finger Stick Blood Sugar(mg/dl) (if 147 indicated): Blood Sugar Done During this Visit Height and Weight Body Mass Index (BMI) 72.0 72.0 72.0 BMI Classification Obese Obese Obese Vital Signs Temperature (97.8 F-99.1 F) 97.1 F L 98 F 96.1 F L Temperature Source Temporal Temporal Temporal Pulse Rate (60-100) 72 80 91 Pulse Location Monitor Monitor Apical Respiratory Rate (12-18) 16 18 18 Respiratory rate source Observation Observation Observation Pulse Oximetry 98 Oxygen Delivery Method Room Air Room Air Room Air Blood Pressure (90/60-120/80) 140/57 H 118/51 L 116/63 Blood Pressure Mean (mm Hg) 84 73 80 Source Monitor Monitor Monitor Position Sitting Semi-Fowlers Sitting Blood Pressure Location Left Forearm Left Arm Left Forearm History Since Last Visit- (Skip if this is Patient's initial visit) Have you changed medications since your Yes No No last visit? Any new allergies or adverse reactions No No No Had a fall/change in ADL's that may No No No increase risk of falls Signs or symptoms of abuse and/or No No No neglect since last visit Have you been in the hospital since your No No No last visit? Has dressing in place as prescribed Yes Yes No Has compression in place as prescribed N/A No N/A Has offloadiing in place as prescribed N/A No N/A Experienced any changes in pain level or No No No management Left Footwear Regular Shoe Regular Shoe Right Footwear Regular Shoe Regular Shoe Pain Scale: 0-10 Numeric Is Patient Pain Free? Yes Yes Yes 01/17/24 01/19/24 01/22/24 13:09 11:51 11:51 WC - Today's Visit Information Type of service Nurse-only Nurse-only Nurse-only Visit Visit Visit Arrival Mode Wheelchair Wheelchair Ambulatory, Wheelchair Transfer Assistance Accompanied by daughter Patient Identification Verified (Name & Yes Yes Yes ) Patient Requires Transmission-Based Precautions Safety Precautions Finger Stick Blood Sugar(mg/dl) (if indicated): Blood Sugar Height and Weight Body Mass Index (BMI) 72.0 72.0 72.0 BMI Classification Obese Obese Obese Vital Signs Temperature (97.8 F-99.1 F) 96.1 F L 97.0 F L Temperature Source Temporal Temporal Pulse Rate (60-100) 83 68 69 Pulse Location Monitor Monitor Monitor Respiratory Rate (12-18) 18 20 H 18 Respiratory rate source Observation Observation Observation Pulse Oximetry Oxygen Delivery Method Room Air Room Air Room Air Blood Pressure (90/60-120/80) 126/66 H 134/65 H 144/80 H Blood Pressure Mean (mm Hg) 86 88 101 Source Monitor Monitor Monitor Position Sitting Sitting Sitting Blood Pressure Location Left Forearm Left Forearm Left Arm History Since Last Visit- (Skip if this is Patient's initial visit) Have you changed medications since your No No No last visit? Any new allergies or adverse reactions No No No Had a fall/change in ADL's that may No No No increase risk of falls Signs or symptoms of abuse and/or No No No neglect since last visit Have you been in the hospital since your No No No last visit? Has dressing in place as prescribed Yes Yes Yes Has compression in place as prescribed N/A N/A N/A Has offloadiing in place as prescribed N/A N/A N/A Experienced any changes in pain level or No No No management Left Footwear Regular Shoe Regular Shoe Regular Shoe Right Footwear Regular Shoe Regular Shoe Regular Shoe Pain Scale: 0-10 Numeric Is Patient Pain Free? Yes Yes Yes 01/24/24 01/26/24 01/29/24 14:18 12:40 14:08 - Today's Visit Information Type of service Follow-up Visit Nurse-only Follow-up Visit (Physician/LEAD TECHNICAL WRITER Visit (Physician/LEAD TECHNICAL WRITER ) ) Arrival Mode Ambulatory Wheelchair Wheelchair Transfer Assistance Manual Accompanied by self ROOMMATE Patient Identification Verified (Name & Yes Yes Yes ) Patient Requires Transmission-Based No Precautions Safety Precautions Fall Prevention Finger Stick Blood Sugar(mg/dl) (if indicated): Blood Sugar Height and Weight Body Mass Index (BMI) 72.0 72.0 72.0 BMI Classification Obese Obese Obese Vital Signs Temperature (97.8 F-99.1 F) 98 F 97.2 F L 96.0 F L Temperature Source Temporal Temporal Temporal Pulse Rate (60-100) 66 68 73 Pulse Location Monitor Monitor Monitor Respiratory Rate (12-18) 18 18 18 Respiratory rate source Observation Observation Observation Pulse Oximetry Oxygen Delivery Method Room Air Room Air Blood Pressure (90/60-120/80) 143/90 H 144/90 H 130/61 H Blood Pressure Mean (mm Hg) 107 108 84 Source Monitor Monitor Monitor Position Sitting Semi-Fowlers Sitting Blood Pressure Location Right Arm Left Arm Left Arm History Since Last Visit- (Skip if this is Patient's initial visit) Have you changed medications since your No No last visit? Any new allergies or adverse reactions No No Had a fall/change in ADL's that may No No increase risk of falls Signs or symptoms of abuse and/or No No neglect since last visit Have you been in the hospital since your No No last visit? Has dressing in place as prescribed Yes Yes Yes Has compression in place as prescribed N/A No N/A Has offloadiing in place as prescribed N/A No N/A Experienced any changes in pain level or No No No management Left Footwear Regular Shoe Regular Shoe Right Footwear Regular Shoe Regular Shoe Pain Scale: 0-10 Numeric Is Patient Pain Free? Yes Yes Yes WC - Nurse 1 - General Ulcer Measurement Start: 01/10/24 13:19 Freq: Status: Active Protocol: Activity Type Activity Date Activity User E-sign Co-sign Detail Recorded Client Recorded Date Recorded By Document 01/10/24 13:19 [facility] 1606-07-16 01/10/24 13:27 [facility] Document 01/12/24 12:21 RB wound center 01/12/24 12:33 RB Document 01/24/24 14:18 MT [id number] 01/24/24 14:32 MT Document 01/26/24 12:40 RB [id number] 01/26/24 12:44 RB Document 01/29/24 14:08 KW k 01/29/24 14:16 KW 01/10/24 01/12/24 01/24/24 13:19 12:21 14:18 Wound Center Nurse 1 3-left side abd -Combined with other wound No -Combined with (Name of Wound-Exactly 1.5 as it is documented) -Current Size (cm) - Length 0.8 0.2 -Current Size (cm) - Width 0.5 0.1 -Current Size (cm) - Depth 0.1 -Total Square Cm 0.40 0.02 -Date of Last Picture (Recall this 01/10/24 field) -Photo Taken Yes -Epithelialization None Present -Tunneling No No -Undermining/Tunneling No No -Circular Undermining No No -Exudate Amt Medium Medium Small -Exudate Type Serosanguineous Serosanguineous Serous -Wound Margin Distinct, Distinct, Flat & Intact Outline Outline Attached Attached -Granulation Amt Large (67-100%) Medium (34-66%) Large (67-100%) -Granulation Quality [place] Pale,[place] -Slough/Fibrin No Yes -Necrosis Amt None Present (0 Medium (34-66%) %) -Necrotic Tissue Type Adherent Slough -Structure Exposed N/A -Texture (Sera-wound Skin Appearance) Assessed, Assessed Assessed Scarring -Moisture (Sera-wound Skin Appearance) Assessed Assessed Assessed -Color (Sera-wound Skin Appearance) Assessed Assessed Assessed -Temperature (Sera-wound Skin No Abnormality No Abnormality No Abnormality Appearance) (Pt Warm) (Pt Warm) (Pt Warm) -Tenderness on Palpation (Sera-wound No No No Skin Appearance) -Ulcer Cleansing Soap and Water Wound Cleanser Soap and Water -Foul Odor after Cleansing No No No -Anesthetic Used 5% Lidocaine 5% Lidocaine Gel Gel -Wound Comment(s) 4-right side abd -Combined with other wound No -Current Size (cm) - Length 1.5 2 -Current Size (cm) - Width 2 1 -Current Size (cm) - Depth 0.1 0.1 -Total Square Cm 3.0 2 -Date of Last Picture (Recall this 01/10/24 field) -Photo Taken Yes -Epithelialization None Present -Tunneling No No -Undermining/Tunneling No No -Circular Undermining No No -Exudate Amt Medium Medium -Exudate Type Serosanguineous Serosanguineous -Wound Margin Flat & Intact Distinct, Flat & Intact Outline Attached -Granulation Amt Large (67-100%) Medium (34-66%) Large (67-100%) -Granulation Quality [place] Pale,[place] -Slough/Fibrin No Yes -Necrosis Amt None Present (0 Medium (34-66%) None Present (0 %) %) -Necrotic Tissue Type Adherent Slough -Structure Exposed N/A -Texture (Sera-wound Skin Appearance) Assessed, Assessed Assessed Scarring -Moisture (Sera-wound Skin Appearance) Assessed Assessed -Color (Sera-wound Skin Appearance) Assessed Assessed Assessed -Temperature (Sera-wound Skin No Abnormality No Abnormality No Abnormality Appearance) (Pt Warm) (Pt Warm) (Pt Warm) -Tenderness on Palpation (Sera-wound No No Skin Appearance) -Ulcer Cleansing Soap and Water Wound Cleanser Soap and Water -Foul Odor after Cleansing No No No -Anesthetic Used 5% Lidocaine 5% Lidocaine Gel Gel #2 ABD -Combined with other wound No -Current Size (cm) - Length 6 6 -Current Size (cm) - Width 6 5.5 -Current Size (cm) - Depth 0.2 0.1 -Total Square Cm 36 33.0 -Date of Last Picture (Recall this 01/10/24 field) -Photo Taken Yes -Epithelialization None Present -Tunneling No No -Undermining/Tunneling No No -Circular Undermining No No -Exudate Amt Large Medium Medium -Exudate Type Serosanguineous Serosanguineous Serosanguineous -Wound Margin Distinct, Distinct, Flat & Intact Outline Outline Attached Attached -Granulation Amt Medium (34-66%) Medium (34-66%) Large (67-100%) -Granulation Quality [place] Pale,[place] -Slough/Fibrin Yes Yes No -Necrosis Amt Small (1-33%) Medium (34-66%) -Necrotic Tissue Type Adherent Slough Adherent Slough -Structure Exposed N/A -Texture (Sera-wound Skin Appearance) Assessed, Assessed Assessed Scarring -Moisture (Sera-wound Skin Appearance) Assessed Assessed Assessed -Color (Sera-wound Skin Appearance) Assessed Assessed Assessed -Temperature (Sera-wound Skin No Abnormality No Abnormality No Abnormality Appearance) (Pt Warm) (Pt Warm) (Pt Warm) -Tenderness on Palpation (Sera-wound No No No Skin Appearance) -Ulcer Cleansing Soap and Water Wound Cleanser Soap and Water -Foul Odor after Cleansing No No No -Anesthetic Used 5% Lidocaine 5% Lidocaine Gel Gel Lower Limb Edema Present NA 01/26/24 01/29/24 12:40 14:08 Wound Center Nurse 1 3-left side abd -Combined with other wound -Combined with (Name of Wound-Exactly as it is documented) -Current Size (cm) - Length 0.1 -Current Size (cm) - Width 0.1 -Current Size (cm) - Depth 0.1 -Total Square Cm 0.01 -Date of Last Picture (Recall this field) -Photo Taken -Epithelialization -Tunneling -Undermining/Tunneling -Circular Undermining -Exudate Amt Medium -Exudate Type Serosanguineous -Wound Margin -Granulation Amt -Granulation Quality -Slough/Fibrin -Necrosis Amt -Necrotic Tissue Type -Structure Exposed -Texture (Sera-wound Skin Appearance) Assessed -Moisture (Sera-wound Skin Appearance) Assessed -Color (Sera-wound Skin Appearance) Assessed -Temperature (Sera-wound Skin No Abnormality Appearance) (Pt Warm) -Tenderness on Palpation (Sera-wound No Skin Appearance) -Ulcer Cleansing Soap and Water -Foul Odor after Cleansing No -Anesthetic Used -Wound Comment(s) LOOKS HEALED 4-right side abd -Combined with other wound -Current Size (cm) - Length 1 -Current Size (cm) - Width 0.7 -Current Size (cm) - Depth 0.1 -Total Square Cm 0.7 -Date of Last Picture (Recall this field) -Photo Taken -Epithelialization -Tunneling -Undermining/Tunneling -Circular Undermining -Exudate Amt Medium Medium -Exudate Type Serosanguineous Serosanguineous -Wound Margin Distinct, Outline Attached -Granulation Amt Large (67-100%) -Granulation Quality [place] -Slough/Fibrin -Necrosis Amt -Necrotic Tissue Type -Structure Exposed -Texture (Sear-wound Skin Appearance) Assessed -Moisture (Sera-wound Skin Appearance) Assessed -Color (Sera-wound Skin Appearance) Assessed -Temperature (Sera-wound Skin No Abnormality Appearance) (Pt Warm) -Tenderness on Palpation (Sera-wound No Skin Appearance) -Ulcer Cleansing Soap and Water -Foul Odor after Cleansing No -Anesthetic Used 4% Lidocaine Solution #2 ABD -Combined with other wound -Current Size (cm) - Length 4.4 -Current Size (cm) - Width 5.7 -Current Size (cm) - Depth 0.2 -Total Square Cm 25.08 -Date of Last Picture (Recall this field) -Photo Taken -Epithelialization Medium 34-66% -Tunneling -Undermining/Tunneling -Circular Undermining -Exudate Amt Large Medium -Exudate Type Serosanguineous Serosanguineous -Wound Margin Distinct, Outline Attached -Granulation Amt Large (67-100%) -Granulation Quality Red -Slough/Fibrin -Necrosis Amt -Necrotic Tissue Type -Structure Exposed -Texture (Sera-wound Skin Appearance) Assessed -Moisture (Sera-wound Skin Appearance) Assessed -Color (Sera-wound Skin Appearance) Assessed -Temperature (Sera-wound Skin No Abnormality Appearance) (Pt Warm) -Tenderness on Palpation (Sera-wound No Skin Appearance) -Ulcer Cleansing Soap and Water -Foul Odor after Cleansing No -Anesthetic Used 4% Lidocaine Solution Lower Limb Edema Present WC - Nurse 2 - General Ulcer CM Notes Start: 01/10/24 13:19 Freq: Status: Active Protocol: Activity Type Activity Date Activity User E-sign Co-sign Detail Recorded Client Recorded Date Recorded By Document 01/10/24 13:55 [facility] 01/10/24 14:05 Document 01/24/24 14:41 [facility] 01/24/24 14:44 Document 01/29/24 14:32 0000 01/29/24 14:35 01/10/24 01/24/24 01/29/24 13:55 14:41 14:32 Wound Center Nurse 2 3-left side abd -Time 13:56 14:42 -Correct Patient Yes Yes No -Correct Side, Site, Position Yes Yes No -Correct Procedure Yes Yes No -Procedure Performed Yes Yes No -Type of Procedure Debridement Debridement -Clinical Debridement Subcutaneous Subcutaneous -Tissue Removed Subcutaneous Subcutaneous -Post Debridement (cm) - Length 0.6 0.5 0 -Post Debridement (cm) - Width 0.5 1.5 0 -Post Debridement (cm) - Depth 0.1 0.1 0 -Total Square (Post) (cm) 0.30 0.75 0 -Area of Debridement (cm) - Length 0.6 0.5 0 -Area of Debridement (cm) - Width 0.5 1.5 0 -Total Square (Area) (cm) 0.30 0.75 0 -Tunneling No No -Undermining/Tunneling No No -Circular Undermining No No -Wound/Ulcer Outcome Not Healed Not Healed Healed- Epithelialized -Ulcer Cleansing Rinsed/ Rinsed/ Irrigated with Irrigated with Saline Saline -Foul Odor after Cleansing No -Bioengineered Tissue No -Bleeding Controlled with Pressure Pressure -Treatment Response Procedure Procedure Tolerated Well Tolerated Well -Debridement - Subq, 1st 20sq cm No No 4-right side abd -Time 13:56 14:41 14:32 -Correct Patient Yes Yes Yes -Correct Side, Site, Position Yes Yes Yes -Correct Procedure Yes Yes Yes -Procedure Performed Yes Yes Yes -Type of Procedure Debridement Debridement Debridement -Clinical Debridement Subcutaneous Subcutaneous Subcutaneous -Tissue Removed Subcutaneous Subcutaneous Subcutaneous -Post Debridement (cm) - Length 2.0 1.5 1.0 -Post Debridement (cm) - Width 1.5 1.0 0.8 -Post Debridement (cm) - Depth 0.2 0.1 0.1 -Total Square (Post) (cm) 3.00 1.50 0.80 -Area of Debridement (cm) - Length 2.0 1.5 1.0 -Area of Debridement (cm) - Width 1.5 1.0 0.8 -Total Square (Area) (cm) 3.00 1.50 0.80 -Tunneling No No No -Undermining/Tunneling No No No -Circular Undermining No No No -Wound/Ulcer Outcome Not Healed Not Healed Not Healed -Ulcer Cleansing Rinsed/ Rinsed/ Rinsed/ Irrigated with Irrigated with Irrigated with Saline Saline Saline -Foul Odor after Cleansing No No No -Bioengineered Tissue No No No -Bleeding Controlled with Pressure Pressure Pressure -Treatment Response Procedure Procedure Procedure Tolerated Well Tolerated Well Tolerated Well -Offloading No -Debridement - Subq, 1st 20sq cm No No No #2 ABD -Time 13:56 14:43 14:33 -Correct Patient Yes Yes Yes -Correct Side, Site, Position Yes Yes Yes -Correct Procedure Yes Yes Yes -Procedure Performed Yes Yes Yes -Type of Procedure Debridement Debridement Debridement -Clinical Debridement Subcutaneous Subcutaneous Subcutaneous -Tissue Removed Subcutaneous Subcutaneous Subcutaneous -Post Debridement (cm) - Length 6.0 5 4.7 -Post Debridement (cm) - Width 6.4 6 6 -Post Debridement (cm) - Depth 0.2 0.2 0.1 -Total Square (Post) (cm) 38.40 30 28.2 -Area of Debridement (cm) - Length 6.0 5 4.7 -Area of Debridement (cm) - Width 6.4 6 6.0 -Total Square (Area) (cm) 38.40 30 28.20 -Tunneling No No No -Undermining/Tunneling No No No -Circular Undermining No No -Wound/Ulcer Outcome Not Healed Not Healed Not Healed -Ulcer Cleansing Rinsed/ Rinsed/ Rinsed/ Irrigated with Irrigated with Irrigated with Saline Saline Saline -Foul Odor after Cleansing No No No -Bioengineered Tissue No -Bleeding Controlled with Pressure Pressure Pressure -Treatment Response Procedure Procedure Procedure Tolerated Well Tolerated Well Tolerated Well -Offloading No -Debridement - Subq, 1st 20sq cm Yes Yes Yes -Debridement, SubQ, ea addt'l 20sq cm 2 1 1 or part thereof Pain Scale: 0-10 Numeric Is Patient Pain Free? Yes Yes Yes WC - Nurse 3 - General Ulcer D/C NN Start: 01/10/24 13:19 Freq: Status: Active Protocol: Activity Type Activity Date Activity User E-sign Co-sign Detail Recorded Client Recorded Date Recorded By Document 01/10/24 16:02 DL [id number] 01/10/24 16:04 DL Document 01/12/24 12:21 RB wound center 01/12/24 12:33 RB Document 01/15/24 11:04 KW [id number] 01/15/24 11:41 KW Document 01/17/24 13:09 KW wound center 01/17/24 13:18 KW Document 01/19/24 11:51 KW [id number] 01/19/24 11:53 KW Document 01/22/24 11:51 DL [id number] 01/22/24 11:53 DL Document 01/24/24 15:02 BMF [id number] 01/24/24 15:03 BMF Document 01/26/24 12:40 RB [id number] 01/26/24 12:44 RB 01/10/24 01/12/24 01/15/24 16:02 12:21 11:04 Wound Care Center Nurse 3 3-left side abd -Ulcer Cleansing Rinsed/ Wound Cleanser Soap and Water Irrigated with Saline -Foul Odor after Cleansing -Primary Dressing Applied Mepilex Border -Other Dressing silvercell silvercel silvercel -Primary Dressing Covered/Secured with Dry Gauze Dry Gauze, Secured with Tape -Mepilex Border 1 -Silvercel 4-right side abd -Ulcer Cleansing Rinsed/ Wound Cleanser Soap and Water Irrigated with Saline -Foul Odor after Cleansing No -Primary Dressing Applied Mepilex Border, Silvercel Silvercel -Other Dressing pt own silvercel -Primary Dressing Covered/Secured with Dry Gauze, Dry Gauze, Secured with Secured with Tape Tape -Mepilex Border 1 -Silvercel 1 1 #2 ABD -Ulcer Cleansing Rinsed/ Wound Cleanser Soap and Water Irrigated with Saline -Foul Odor after Cleansing No -Primary Dressing Applied Mepilex Border Mepilex Border, Nugauze, Iodoform 1/2in -Other Dressing silvercell silvercel -Primary Dressing Covered/Secured with Dry Gauze Dry Gauze -Mepilex Border 1 1 -Nugauze, Iodoform 1/2in 1 -Silvercel -Wound Comment(s) 1/2 iodoform packed into umbilus covered with mepilex bprdered foam Treatment Response Procedure Procedure Tolerated Well Tolerated Well Vital Signs Temperature (97.8 F-99.1 F) 98 F 96.1 F L Temperature Source Temporal Temporal Pulse Rate (60-100) 80 91 Pulse Location Monitor Apical Respiratory Rate (12-18) 18 18 Respiratory rate source Observation Observation Pulse Oximetry 98 Oxygen Delivery Method Room Air Room Air Blood Pressure (90/60-120/80) 118/51 L 116/63 Blood Pressure Mean (mm Hg) 73 80 Source Monitor Monitor Position Semi-Fowlers Sitting Blood Pressure Location Left Arm Left Forearm Pain Scale: 0-10 Numeric Is Patient Pain Free? Yes Yes Yes WC - Visit Discharge Discharge Condition Stable Stable Stable Ambulatory Status Ambulatory, Ambulatory,Cane Wheelchair Wheelchair Transportation Private Auto Private Auto Private Auto Accompanied by Medication Reconcilliation completed & No No provided to patient/care provider Clinical Summary of Care Provided Yes Yes Notes: pt states for the past several days she was feeling chilled and sweaty . pt states she just sarted farxiga 2 weeks ago. pt skin was cool and calmy to touch . pt blood sugar taken and 147. pt instructed to call PCP or go to emergency room if no improvement. pt agreed to contact PCP about above. 01/17/24 01/19/2424 13:09 11:51 11:51 Wound Care Center Nurse 3 3-left side abd -Ulcer Cleansing Soap and Water -Foul Odor after Cleansing -Primary Dressing Applied -Other Dressing pt own silvercel -Primary Dressing Covered/Secured with Dry Gauze, Dry Gauze, Dry Gauze, Secured with Secured with Secured with Tape Tape Tape -Mepilex Border -Silvercel 4-right side abd -Ulcer Cleansing Soap and Water Soap and Water -Foul Odor after Cleansing -Primary Dressing Applied Silvercel Silvercel -Other Dressing pt own silvercel -Primary Dressing Covered/Secured with Dry Gauze, Dry Gauze, Dry Gauze, Secured with Secured with Secured with Tape Tape Tape -Mepilex Border -Silvercel 1 1 #2 ABD -Ulcer Cleansing Soap and Water -Foul Odor after Cleansing -Primary Dressing Applied -Other Dressing PT OWN IODOFORM pt own drsg -Primary Dressing Covered/Secured with Dry Gauze, Dry Gauze, Dry Gauze, Secured with Secured with Secured with Tape Tape Tape -Mepilex Border -Nugauze, Iodoform 1/2in -Silvercel -Wound Comment(s) Treatment Response Vital Signs Temperature (97.8 F-99.1 F) 96.1 F L 97.0 F L Temperature Source Temporal Temporal Pulse Rate (60-100) 83 68 69 Pulse Location Monitor Monitor Monitor Respiratory Rate (12-18) 18 20 H 18 Respiratory rate source Observation Observation Observation Pulse Oximetry Oxygen Delivery Method Room Air Room Air Room Air Blood Pressure (90/60-120/80) 126/66 H 134/65 H 144/80 H Blood Pressure Mean (mm Hg) 86 88 101 Source Monitor Monitor Monitor Position Sitting Sitting Sitting Blood Pressure Location Left Forearm Left Forearm Left Arm Pain Scale: 0-10 Numeric Is Patient Pain Free? Yes Yes Yes WC - Visit Discharge Discharge Condition Stable Stable Stable Ambulatory Status Wheelchair Wheelchair Wheelchair Transportation Private Auto Private Auto Private Auto Accompanied by Medication Reconcilliation completed & No No No provided to patient/care provider Clinical Summary of Care Provided Yes Yes Yes Notes: 01/24/24 01/26/24 15:02 12:40 Wound Care Center Nurse 3 3-left side abd -Ulcer Cleansing Rinsed/ Wound Cleanser Irrigated with Saline -Foul Odor after Cleansing No -Primary Dressing Applied Mepilex Border, Silvercel -Other Dressing silvercel -Primary Dressing Covered/Secured with Dry Gauze, Secured with Tape -Mepilex Border 1 -Silvercel 0 4-right side abd -Ulcer Cleansing Rinsed/ Wound Cleanser Irrigated with Saline -Foul Odor after Cleansing No -Primary Dressing Applied Mepilex Border, Silvercel -Other Dressing silvercel -Primary Dressing Covered/Secured with Dry Gauze, Secured with Tape -Mepilex Border 1 -Silvercel 1 #2 ABD -Ulcer Cleansing Rinsed/ Irrigated with Saline -Foul Odor after Cleansing No -Primary Dressing Applied Silvercel Mepilex Border -Other Dressing abd silvercel -Primary Dressing Covered/Secured with Dry Gauze, Secured with Tape -Mepilex Border 1 -Nugauze, Iodoform 1/2in -Silvercel 0 -Wound Comment(s) umbilicus packed with iodoform Treatment Response Procedure Procedure Tolerated Well Tolerated Well Vital Signs Temperature (97.8 F-99.1 F) 97.2 F L Temperature Source Temporal Pulse Rate (60-100) 68 Pulse Location Monitor Respiratory Rate (12-18) 18 Respiratory rate source Observation Pulse Oximetry Oxygen Delivery Method Blood Pressure (90/60-120/80) 144/90 H Blood Pressure Mean (mm Hg) 108 Source Monitor Position Semi-Fowlers Blood Pressure Location Left Arm Pain Scale: 0-10 Numeric Is Patient Pain Free? Yes Yes WC - Visit Discharge Discharge Condition Stable Stable Ambulatory Status Wheelchair Wheelchair Transportation Private Auto Private Auto Accompanied by [place] Medication Reconcilliation completed & No provided to patient/care provider Clinical Summary of Care Provided Yes Notes: Additional Wound Wound debrided: lateral abdominal ulcer in skin fold Laterality: Right Wound Grade/Stage: Stage III Type of Debridement: Excisional debridement Anesthesia Used: 5% Lidocaine Gel Depth: Down to and including healthy tissue and in the subcutaneous layer Percentage of wound debrided: 100 Instrument Used: 3mm curette Tissue Removed: Non viable tissue and slough Severity: Fat Layer Exposed Amount of bleeding with debridement: Mild Bleeding Controlled with: Pressure and Compression and gauze Patient tolerated procedure: Patient tolerated procedure well Assessment/Plan Assessment/Plan (1) Skin ulcer of abdominal wall with fat layer exposed: CODE(S): L98.492 - Non-pressure chronic ulcer of skin of other sites with fat layer exposed (2) Obesity: CODE(S): E66.9 - Obesity, unspecified QUALIFIERS: Obesity type: due to excess calories Obesity classification: adult class 3 (BMI >= 40) Serious obesity comorbidity presence: with serious comorbidity Body mass index: BMI 70 or greater Qualified Code(s): E66.01 - Morbid (severe) obesity due to excess calories; Z68.45 - Body mass index [BMI] 70 or greater, adult (3) Umbilicus discharge: CODE(S): R19.8 - Other specified symptoms and signs involving the di gestive system and abdomen (4) Yeast infection of the skin: CODE(S): B37.2 - Candidiasis of skin and nail PLAN: Plan Patient evaluated at the wound healing center today. Wound care for the ulcers on her right lateral abdomen and the lower abdomen/pannus area place Silvercel/silver alginate daily covered with gauze/ABD/Viola SAP daily to these ulcers after washing with soap and water. The left lateral abdominal ulcer is healed, but fragile. She can cover it with dry gauze to help prevent it from reopening. For her umbilicus, will continue placing a strip of 1/4 Iodoform gauze to help absorb the moisture and prevent maceration and skin rubbing against itself. She is coming into the wound center for nurses visit 2-3 times per week to have assistance with her dressings and her daughter could help change them the other days at home. Wound culture were collected [facility] and she was placed on Doxycycline prophylactically. The wound cultures were positive for Pseudomonas aeruginosa, Proteus mirabilis, and Corynebacterium striatum. These bacteria are not sensitive to the Doxycycline. She has finished the Levaquin to cover the Pseudomonas and Proteus. The Corynebacterium is skin contaminant. Reinforced to her to try and elevate her pannus on a pillow so that some of the swelling may decrease in the area that is most dependent. She has seen Dr. Mcgowan in his office to discuss a panniculectomy. With her hernia, it is recommended that she go to a tertiary facility for further surgical options She was scheduled to have an ultrasound of her abdomen at [facility] and it showed an abdominal hernia. She states she was removed from bariatric surgery program and was referred to the obesity medicine, her appointment is at the end of February. She states that she is not able to get enough protein intake and can not afford the protein supplements, therefore, she may not be a candidate for the bariatric surgery. I stressed the importance of increased protein intake for wound healing. The increased protein intake/supplementation is necessary no matter what treatment plan that she decides to have. She will follow up 2 weeks with me. She may follow up 2-3 times per week for nurse's visits to help with wound care. Instructed to call if she has any questions or concerns.
[2024-02-02 11:36] VITALS: BP 94/64; PULSE 68; RESP 18; TEMP 35.3; BMI 72.0
== END 2024-02-04 23:59 | disposition home or self-care (01) ==
LOC: WC 11:00
PROVIDERS: PCP Preventive Medicine Occupational Medicine; Referring Provider Physician Assistant; Visit Provider Nurse Practitioner Family
DX: L98.492 Non-pressure chronic ulcer of skin of other sites with fat layer exposed (principal); E66.01 Morbid (severe) obesity due to excess calories; Z68.45 Body mass index [BMI] 70 or greater, adult; R26.2 Difficulty in walking, not elsewhere classified; M17.11 Unilateral primary osteoarthritis, right knee; B37.2 Candidiasis of skin and nail; E03.9 Hypothyroidism, unspecified; R73.03 Prediabetes; J45.909 Unspecified asthma, uncomplicated; G47.30 Sleep apnea, unspecified
CPT/HCPCS: G0463 ×3; 11042; 11045; 82962; 99211; 99212; 99213; 99214

== ENCOUNTER 2024-03-04 13:15 | Outpatient (RCR) | payer MEDICAID, SELFPAY ==
[2024-02-05 00:42] VITALS: BP 163/76; PULSE 77; RESP 16; TEMP 36.1; O2SAT 98; BMI 72.0
[2024-02-05 09:45] VITALS: BP 135/66; PULSE 63; RESP 18; TEMP 35.8; BMI 72.0
[2024-02-07 13:14] VITALS: BP 126/67; PULSE 86; RESP 18; TEMP 36.3; BMI 72.0
[2024-02-12 13:48] VITALS: BP 137/50; PULSE 72; RESP 18; TEMP 36.3; BMI 72.0
--- NOTE | 2024-02-12 16:25 | PCM.WC.PN ---
History of Present Illness Date of Service: 02/12/24 Chief Complaint: Ulcer on abdomen and leaky belly button. History of Wound: Patient is a 48-year-old female who presented on her pannus. She states that it was just noticed 1 to 2 weeks ago. She is obese and has a difficult time walking due to knee pain. She is able to transfer to and from her wheelchair. She states she is still able to drive. She states that she was bathing a couple weeks ago and discovered this ulcer. She states that it does have drainage. She has been covering it with a disposable pad to absorb the drainage. She also states that she has issues with drainage from her umbilicus. It will sometimes have a strong odor and also will bleed on occasion. She states she has seen dermatology and a general surgeon about this and they stated there was not much to do for this. Dermatology has put her on Ketoconazole cream for rashes in skin folds, that she has not recently been using. While examining her it was discovered that she also has an ulcer on her right lateral abdomen and her left lateral abdomen in a skin fold. She states she has a hard time bathing herself due to the weight of her pannus. She has a history of hypothyroidism, pre diabetes, polycystic ovary, asthma, sleep apnea, an ulcer on her left lower leg, and right knee arthritis. [facility]ound culture [facility]/23 at [facility] and was positive for Pseudomonas aeruginosa, Proteus mirabilis, and Corynebacterium striatum. She was treated with Doxycycline before the culture results were back. Will start her on Levaquin. She comes in today for further evaluation of her ulcer. She denies fever, chills, nausea or vomiting. Progress of Wound: She has been coming into the wound center 2-3 times a week for nurse visits to assist with her wound care. Lower abdominal/pannus ulcer is pink and slightly smaller in size. The overall appearance has improved with the more frequent nurse visits. The ulcer is located in the most dependent portion of her pannus, there is significant amount of pitting edema present. The ulcer on her left lateral abdomen pannus skin fold has reopened. The right lateral abdomen in the pannus skin fold appears stable today with no hypergranulation tissue present. She has been placing iodoform gauze into her umbilicus stalk to help absorb the drainage that is present. She has been removed from the bariatric surgery option but has been placed in the obesity management and is scheduled to see them at the end of February. Objective Data Objective Data Vital Signs: Vital Signs Temp Pulse Resp BP Pulse Ox 97.4 F L 72 18 137/50 H 98 02/12/24 13:48 02/12/24 13:48 02/12/24 13:48 02/12/24 13:48 02/05/24 00:42 Weight: 433 lb Body Mass Index (BMI) 72.0 Charges/Coding Procedures Integumentary 111xxx-113xx: [id number] Silvia subq tissue 20 sq cm/< Add On Codes: 50460 Silvia subq tissue add-on Debridement Note Debridement Note Wound debrided: Lower abdominal pannus Laterality: Not Applicable Wound Grade/Stage: Stage III Type of Debridement: Excisional debridement Anesthesia Used: 5% Lidocaine Gel Depth: Down to and including healthy tissue and in the subcutaneous layer Percentage of wound debrided: 100 Instrument Used: 7mm curette Tissue Removed: Non viable tissue and slough Severity: Fat Layer Exposed Amount of bleeding with debridement: Mild Bleeding Controlled with: Compression and gauze Patient tolerated procedure: Patient tolerated procedure well Post-Debridement Measurements and Additional Note: Post-Debridement Measurements/Treatment - Nurse 1 - General Ulcer Assessment Start: 02/05/24 09:44 Freq: Status: Active Protocol: BALDEMAR Activity Type Activity Date Activity User E-sign Co-sign Detail Recorded Client Recorded Date Recorded By Document 02/05/24 09:45 DL [email or web address] 02/05/24 10:02 DL Document 02/07/24 13:14 RB wound 02/07/24 13:16 RB Document 02/12/24 13:48 JF 00 02/12/24 13:52 JF 02/05/24 02/07/24 02/12/24 09:45 13:14 13:48 - Today's Visit Information Type of service Nurse-only Nurse-only Follow-up Visit Visit Visit (Physician/LOAN SERVICING SPECIALIST ) Arrival Mode Ambulatory, Wheelchair Ambulatory, Wheelchair Wheelchair Transfer Assistance None Manual Manual Patient Identification Verified (Name & Yes Yes Yes ) Patient Requires Transmission-Based No No No Precautions Height and Weight Body Mass Index (BMI) 72.0 72.0 72.0 BMI Classification Obese Obese Obese Vital Signs Temperature (97.8 F-99.1 F) 96.5 F L 97.3 F L 97.4 F L Temperature Source Temporal Temporal Temporal Pulse Rate (60-100) 63 86 72 Pulse Location Monitor Monitor Monitor Respiratory Rate (12-18) 18 18 18 Respiratory rate source Observation Observation Blood Pressure (90/60-120/80) 135/66 H 126/67 H 137/50 H Blood Pressure Mean (mm Hg) 89 86 79 Source Monitor Monitor Position Sitting Sitting Blood Pressure Location Left Arm Left Arm History Since Last Visit- (Skip if this is Patient's initial visit) Have you changed medications since your No No last visit? Any new allergies or adverse reactions No No Had a fall/change in ADL's that may No No increase risk of falls Signs or symptoms of abuse and/or No No neglect since last visit Have you been in the hospital since your No No last visit? Has dressing in place as prescribed Yes Yes Has compression in place as prescribed N/A N/A Has offloadiing in place as prescribed N/A N/A Experienced any changes in pain level or No No management Left Footwear Regular Shoe Right Footwear Regular Shoe Pain Scale: 0-10 Numeric Is Patient Pain Free? Yes Yes Yes WC - Nurse 1 - General Ulcer Measurement Start: 02/05/24 09:44 Freq: Status: Active Protocol: Activity Type Activity Date Activity User E-sign Co-sign Detail Recorded Client Recorded Date Recorded By Document 02/05/24 09:45 DL [email or web address] 02/05/24 10:02 DL Document 02/12/24 13:48 JF 00 02/12/24 13:52 JF 02/05/24 02/12/24 09:45 13:48 Wound Center Nurse 1 4-right side abd -Combined with other wound No -Current Size (cm) - Length 0.7 -Current Size (cm) - Width 1.0 -Current Size (cm) - Depth 0.1 -Total Square Cm 0.70 -Photo Taken No -Epithelialization Small 1-33% -Tunneling No -Undermining/Tunneling No -Circular Undermining No -Exudate Amt Small Medium -Exudate Type Serosanguineous -Wound Margin Fibrotic Scar, Thickened Scar -Granulation Amt Large (67-100%) Large (67-100%) -Granulation Quality [place] Red -Slough/Fibrin No -Necrosis Amt None Present (0 Small (1-33%) %) -Necrotic Tissue Type Adherent Slough -Structure Exposed N/A N/A -Texture (Sera-wound Skin Appearance) Scarring Assessed -Moisture (Sera-wound Skin Appearance) No Abnormality Assessed,Dry/ Scaly -Color (Sera-wound Skin Appearance) No Abnormality Assessed -Temperature (Sera-wound Skin No Abnormality No Abnormality Appearance) (Pt Warm) (Pt Warm) -Tenderness on Palpation (Sera-wound No No Skin Appearance) -Ulcer Cleansing Soap and Water Wound Cleanser -Foul Odor after Cleansing No No -Anesthetic Used 5% Lidocaine Gel #2 ABD -Combined with other wound No -Current Size (cm) - Length 5 -Current Size (cm) - Width 5.1 -Current Size (cm) - Depth 0.1 -Total Square Cm 25.5 -Photo Taken No -Epithelialization Small 1-33% -Tunneling No -Undermining/Tunneling No -Exudate Amt Medium Medium -Exudate Type Serosanguineous Serosanguineous -Wound Margin Distinct, Flat & Intact Outline Attached -Granulation Amt Medium (34-66%) Large (67-100%) -Granulation Quality Red Red -Slough/Fibrin Yes -Necrosis Amt Medium (34-66%) Small (1-33%) -Necrotic Tissue Type Adherent Slough Adherent Slough -Structure Exposed N/A N/A -Texture (Sera-wound Skin Appearance) Scarring Assessed -Moisture (Sera-wound Skin Appearance) No Abnormality Assessed,Dry/ Scaly -Color (Sera-wound Skin Appearance) No Abnormality Assessed -Temperature (Sera-wound Skin No Abnormality No Abnormality Appearance) (Pt Warm) (Pt Warm) -Tenderness on Palpation (Sera-wound No No Skin Appearance) -Ulcer Cleansing Soap and Water Wound Cleanser -Foul Odor after Cleansing Yes, Due to No Product Use -Anesthetic Used 5% Lidocaine Gel Lower Limb Edema Present NA WC - Nurse 2 - General Ulcer CM Notes Start: 02/05/24 09:44 Freq: Status: Active Protocol: Activity Type Activity Date Activity User E-sign Co-sign Detail Recorded Client Recorded Date Recorded By Document 02/12/24 13:56 JF 02/12/24 14:01 JF 02/12/24 13:56 Wound Center Nurse 2 4-right side abd -Time 13:57 -Correct Patient Yes -Correct Side, Site, Position Yes -Correct Procedure Yes -Procedure Performed Yes -Type of Procedure Debridement -Clinical Debridement Subcutaneous -Tissue Removed Subcutaneous -Post Debridement (cm) - Length 1.2 -Post Debridement (cm) - Width 0.9 -Post Debridement (cm) - Depth 0.1 -Total Square (Post) (cm) 1.08 -Area of Debridement (cm) - Length 1.2 -Area of Debridement (cm) - Width 0.9 -Total Square (Area) (cm) 1.08 -Tunneling No -Undermining/Tunneling No -Circular Undermining No -Wound/Ulcer Outcome Not Healed -Ulcer Cleansing Rinsed/ Irrigated with Saline -Foul Odor after Cleansing No -Bioengineered Tissue No -Bleeding Controlled with Pressure -Treatment Response Procedure Tolerated Well -Offloading No -Debridement - Subq, 1st 20sq cm No 3-left side abd -Time 14:00 -Correct Patient Yes -Correct Side, Site, Position Yes -Correct Procedure Yes -Procedure Performed Yes -Type of Procedure Debridement -Clinical Debridement Subcutaneous -Tissue Removed Subcutaneous -Post Debridement (cm) - Length 1.0 -Post Debridement (cm) - Width 1.5 -Post Debridement (cm) - Depth 0.1 -Total Square (Post) (cm) 1.50 -Area of Debridement (cm) - Length 1.0 -Area of Debridement (cm) - Width 1.5 -Total Square (Area) (cm) 1.50 -Tunneling No -Undermining/Tunneling No -Circular Undermining No -Wound/Ulcer Outcome Not Healed -Ulcer Cleansing Rinsed/ Irrigated with Saline -Foul Odor after Cleansing No -Bioengineered Tissue No -Bleeding Controlled with Pressure -Treatment Response Procedure Tolerated Well -Offloading No -Debridement - Subq, 1st 20sq cm Yes -Debridement, SubQ, ea addt'l 20sq cm 1 or part thereof #2 ABD -Time 13:58 -Correct Patient Yes -Correct Side, Site, Position Yes -Correct Procedure Yes -Procedure Performed Yes -Type of Procedure Debridement -Clinical Debridement Subcutaneous -Tissue Removed Subcutaneous -Post Debridement (cm) - Length 5.6 -Post Debridement (cm) - Width 5.3 -Post Debridement (cm) - Depth 0.1 -Total Square (Post) (cm) 29.68 -Area of Debridement (cm) - Length 5.6 -Area of Debridement (cm) - Width 5.3 -Total Square (Area) (cm) 29.68 -Tunneling No -Undermining/Tunneling No -Circular Undermining No -Wound/Ulcer Outcome Not Healed -Ulcer Cleansing Rinsed/ Irrigated with Saline -Foul Odor after Cleansing No -Bioengineered Tissue No -Bleeding Controlled with Pressure -Treatment Response Procedure Tolerated Well -Offloading No -Debridement - Subq, 1st 20sq cm No Pain Scale: 0-10 Numeric Is Patient Pain Free? Yes WC - Nurse 3 - General Ulcer D/C NN Start: 02/05/24 09:44 Freq: Status: Active Protocol: Activity Type Activity Date Activity User E-sign Co-sign Detail Recorded Client Recorded Date Recorded By Document 02/05/24 09:45 DL [email or web address] 02/05/24 10:02 DL Document 02/07/24 13:14 RB wound 02/07/24 13:16 RB Document 02/12/24 14:07 KW h 02/12/24 14:09 KW 02/05/24 02/07/24 02/12/24 09:45 13:14 14:07 Vital Signs Temperature (97.8 F-99.1 F) 96.5 F L 97.3 F L Temperature Source Temporal Temporal Pulse Rate (60-100) 63 86 Pulse Location Monitor Monitor Respiratory Rate (12-18) 18 18 Respiratory rate source Observation Blood Pressure (90/60-120/80) 135/66 H 126/67 H Blood Pressure Mean (mm Hg) 89 86 Source Monitor Position Sitting Blood Pressure Location Left Arm Pain Scale: 0-10 Numeric Is Patient Pain Free? Yes Yes Yes Wound Care Center Nurse 3 4-right side abd -Ulcer Cleansing Wound Cleanser -Primary Dressing Applied Silvercel -Other Dressing silvercell silvercel -Primary Dressing Covered/Secured with Dry Gauze,Dry Dry Gauze, Dry Gauze, Gauze & Roll Secured with Secured with Gauze,Secured Tape Tape with Tape -Silvercel 1 3-left side abd -Other Dressing silvercel -Primary Dressing Covered/Secured with Secured with Tape #2 ABD -Ulcer Cleansing Soap and Water -Foul Odor after Cleansing No -Other Dressing silvercell iodoform iodoform packing to umbilus and silvercel to inferioir abd wound -Primary Dressing Covered/Secured with Dry Gauze, Dry Gauze, Dry Gauze, Secured with Secured with Secured with Tape Tape Tape -Other Covering ABD -Wound Comment(s) Umbilicus wound dressed with Iodoform as ordered. WC - Visit Discharge Discharge Condition Stable Stable Ambulatory Status Wheelchair Wheelchair Transportation Private Auto Private Auto Medication Reconcilliation completed & No No provided to patient/care provider Clinical Summary of Care Provided Yes Yes Additional Wound Wound debrided: #4 lateral abdominal ulcer in skin fold Laterality: Right Wound Grade/Stage: Stage III Type of Debridement: Excisional debridement Anesthesia Used: 5% Lidocaine Gel Depth: Down to and including healthy tissue and in the subcutaneous layer Percentage of wound debrided: 100 Instrument Used: 3mm curette Tissue Removed: Non viable tissue and slough Severity: Fat Layer Exposed Amount of bleeding with debridement: Mild Bleeding Controlled with: Pressure and Compression and gauze Patient tolerated procedure: Patient tolerated procedure well Additional Wound Wound debrided: #3 lateral abdominal fold ulcer Laterality: Left Wound Grade/Stage: Stage III Type of Debridement: Excisional debridement Anesthesia Used: 5% Lidocaine Gel Depth: Down to and including healthy tissue Percentage of wound debrided: 100 Instrument Used: 3mm curette Tissue Removed: Non viable tissue and slough Severity: Fat Layer Exposed Amount of bleeding with debridement: Mild Bleeding Controlled with: Pressure Patient tolerated procedure: Patient tolerated procedure well Assessment/Plan Assessment/Plan (1) Skin ulcer of abdominal wall with fat layer exposed: CODE(S): L98.492 - Non-pressure chronic ulcer of skin of other sites with fat layer exposed (2) Obesity: CODE(S): E66.9 - Obesity, unspecified QUALIFIERS: Obesity type: due to excess calories Obesity classification: adult class 3 (BMI >= 40) Serious obesity comorbidity presence: with serious comorbidity Body mass index: BMI 70 or greater Qualified Code(s): E66.01 - Morbid (severe) obesity due to excess calories; Z68.45 - Body mass index [BMI] 70 or greater, adult (3) Umbilicus discharge: CODE(S): R19.8 - Other specified symptoms and signs involving the digestive system and abdomen (4) Yeast infection of the skin: CODE(S): B37.2 - Candidiasis of skin and nail PLAN: Plan Patient evaluated at the wound healing center today. Wound care for the ulcers on her right and left lateral abdomen and the lower abdomen/pannus area place Silvercel/silver alginate daily covered with gauze/ABD/[place] SAP daily to these ulcers after washing with soap and water. The left lateral abdominal ulcer is healed, but fragile. She can cover it with dry gauze to help prevent it from reopening. For her umbilicus, will continue placing a strip of 1/4 Iodoform gauze to help absorb the moisture and prevent maceration and skin rubbing against itself. She is coming into the wound center for nurses visit 2-3 times per week to have assistance with her dressings and her daughter could help change them the other days at home. Wound culture were collected [facility] and she was placed on Doxycycline prophylactically. The wound cultures were positive for Pseudomonas aeruginosa, Proteus mirabilis, and Corynebacterium striatum. These bacteria are not sensitive to the Doxycycline. She has finished the Levaquin to cover the Pseudomonas and Proteus. The Corynebacterium is skin contaminant. Reinforced to her to try and elevate her pannus on a pillow so that some of the swelling may decrease in the area that is most dependent. She has seen Dr. Mcgowan in his office to discuss a panniculectomy. With her hernia, it is recommended that she go to a tertiary facility for further surgical options She was scheduled to have an ultrasound of her abdomen at [facility] and it showed an abdominal hernia. She states she was removed from bariatric surgery program and was referred to the obesity medicine, her appointment is at the end of February. She states that she is not able to get enough protein intake and can not afford the protein supplements, therefore, she may not be a candidate for the bariatric surgery. I stressed the importance of increased protein intake for wound healing. The increased protein intake/supplementation is necessary no matter what treatment plan that she decides to have. She will follow up 1 week with me. She may follow up 1-2 times per week for nurse's visits to help with wound care. Instructed to call if she has any questions or concerns.
--- NOTE | 2024-02-15 09:29 | WC ---
PHOTO 02/12/2024 LEFT ABD
[2024-02-16 11:34] VITALS: BP 135/88; PULSE 79; RESP 18; TEMP 36.7; BMI 72.0
[2024-02-19 11:25] VITALS: BP 153/69; PULSE 65; RESP 18; TEMP 36; BMI 72.0
--- NOTE | 2024-02-19 12:02 | PCM.WC.PN ---
History of Present Illness Date of Service: 02/19/24 Chief Complaint: Ulcer on abdomen and leaky belly button. History of Wound: Patient is a 48-year-old female who presented on her pannus. She states that it was just noticed 1 to 2 weeks ago. She is obese and has a difficult time walking due to knee pain. She is able to transfer to and from her wheelchair. She states she is still able to drive. She states that she was bathing a couple weeks ago and discovered this ulcer. She states that it does have drainage. She has been covering it with a disposable pad to absorb the drainage. She also states that she has issues with drainage from her umbilicus. It will sometimes have a strong odor and also will bleed on occasion. She states she has seen dermatology and a general surgeon about this and they stated there was not much to do for this. Dermatology has put her on Ketoconazole cream for rashes in skin folds, that she has not recently been using. While examining her it was discovered that she also has an ulcer on her right lateral abdomen and her left lateral abdomen in a skin fold. She states she has a hard time bathing herself due to the weight of her pannus. She has a history of hypothyroidism, pre diabetes, polycystic ovary, asthma, sleep apnea, an ulcer on her left lower leg, and right knee arthritis. [facility] culture [facility]/23 [facility] and was positive for Pseudomonas aeruginosa, Proteus mirabilis, and Corynebacterium striatum. She was treated with Doxycycline before the culture results were back. Will start her on Levaquin. She comes in today for further evaluation of her ulcer. She denies fever, chills, nausea or vomiting. Progress of Wound: She has been coming into the wound center 1-2 times a week for nurse visits to assist with her wound care. Lower abdominal/pannus ulcer is pink and slightly smaller in size. The ulcer is located in the most dependent portion of her pannus, there is significant amount of pitting edema present. The ulcer on her left lateral abdomen pannus skin fold is stable. The ulcer on the right lateral abdomen in the pannus skin fold is smaller. She has been placing iodoform gauze into her umbilicus stalk to help absorb the drainage that is present. She has been removed from the bariatric surgery option but has been placed in the obesity management and is scheduled to see them at the end of February. Objective Data Objective Data Vital Signs: Vital Signs Temp Pulse Resp BP Pulse Ox O2 Del Method 96.8 F L 65 18 153/69 H 98 Room Air 02/19/24 11:25 02/19/24 11:25 02/19/24 11:25 02/19/24 11:25 02/05/24 00:42 02/19/24 11:25 Oxygen Delivery Method Room Air Weight: 433 lb Body Mass Index (BMI) 72.0 Charges/Coding Procedures Integumentary 111xxx-113xx: 28611 Silvia subq tissue 20 sq cm/< Add On Codes: 88904 Silvia subq tissue add-on Debridement Note Debridement Note Wound debrided: Lower abdominal pannus Laterality: Not Applicable Wound Grade/Stage: Stage III Type of Debridement: Excisional debridement Anesthesia Used: 5% Lidocaine Gel Depth: Down to and including healthy tissue and in the subcutaneous layer Percentage of wound debrided: 100 Instrument Used: 7mm curette Tissue Removed: Non viable tissue and slough Severity: Fat Layer Exposed Amount of bleeding with debridement: Mild Bleeding Controlled with: Compression and gauze Patient tolerated procedure: Patient tolerated procedure well Post-Debridement Measurements and Additional Note: Post-Debridement Measurements/Treatment WC - Nurse 1 - General Ulcer Assessment Start: 02/05/24 09:44 Freq: Status: Active Protocol: BALDEMAR Activity Type Activity Date Activity User E-sign Co-sign Detail Recorded Client Recorded Date Recorded By Document 02/05/24 09:45 DL [email or web address] 02/05/24 10:02 DL Document 02/07/24 13:14 RB wound 02/07/24 13:16 RB Document 02/12/24 13:48 JF 00 02/12/24 13:52 JF Document 02/16/24 11:34 KW ' 02/16/24 11:53 KW Document 02/19/24 11:25 KW g 02/19/24 11:31 KW 02/05/24 02/07/24 02/12/24 09:45 13:14 13:48 - Today's Visit Information Type of service Nurse-only Nurse-only Follow-up Visit Visit Visit (Physician/SUPER[employer] ) Arrival Mode Ambulatory, Wheelchair Ambulatory, Wheelchair Wheelchair Transfer Assistance None Manual Manual Patient Identification Verified (Name & Yes Yes Yes ) Patient Requires Transmission-Based No No No Precautions Height and Weight Body Mass Index (BMI) 72.0 72.0 72.0 BMI Classification Obese Obese Obese Vital Signs Temperature (97.8 F-99.1 F) 96.5 F L 97.3 F L 97.4 F L Temperature Source Temporal Temporal Temporal Pulse Rate (60-100) 63 86 72 Pulse Location Monitor Monitor Monitor Respiratory Rate (12-18) 18 18 18 Respiratory rate source Observation Observation Oxygen Delivery Method Blood Pressure (90/60-120/80) 135/66 H 126/67 H 137/50 H Blood Pressure Mean (mm Hg) 89 86 79 Source Monitor Monitor Position Sitting Sitting Blood Pressure Location Left Arm Left Arm History Since Last Visit- (Skip if this is Patient's initial visit) Have you changed medications since your No No last visit? Any new allergies or adverse reactions No No Had a fall/change in ADL's that may No No increase risk of falls Signs or symptoms of abuse and/or No No neglect since last visit Have you been in the hospital since your No No last visit? Has dressing in place as prescribed Yes Yes Has compression in place as prescribed N/A N/A Has offloadiing in place as prescribed N/A N/A Experienced any changes in pain level or No No management Left Footwear Regular Shoe Right Footwear Regular Shoe Pain Scale: 0-10 Numeric Is Patient Pain Free? Yes Yes Yes 02/16/24 02/19/24 11:34 11:25 WC - Today's Visit Information Type of service Nurse-only Follow-up Visit Visit (Physician/SUPERVIS[employer] ) Arrival Mode Wheelchair Ambulatory Transfer Assistance Patient Identification Verified (Name & Yes Yes ) Patient Requires Transmission-Based Precautions Height and Weight Body Mass Index (BMI) 72.0 72.0 BMI Classification Obese Obese Vital Signs Temperature (97.8 F-99.1 F) 98.1 F 96.8 F L Temperature Source Temporal Temporal Pulse Rate (60-100) 79 65 Pulse Location Monitor Monitor Respiratory Rate (12-18) 18 18 Respiratory rate source Observation Observation Oxygen Delivery Method Room Air Room Air Blood Pressure (90/60-120/80) 135/88 H 153/69 H Blood Pressure Mean (mm Hg) 103 97 Source Monitor Monitor Position Sitting Semi-Fowlers Blood Pressure Location Left Arm Left Arm History Since Last Visit- (Skip if this is Patient's initial visit) Have you changed medications since your No No last visit? Any new allergies or adverse reactions No No Had a fall/change in ADL's that may No No increase risk of falls Signs or symptoms of abuse and/or No No neglect since last visit Have you been in the hospital since your No No last visit? Has dressing in place as prescribed Yes Yes Has compression in place as prescribed N/A N/A Has offloadiing in place as prescribed N/A N/A Experienced any changes in pain level or No No management Left Footwear Regular Shoe Regular Shoe Right Footwear Regular Shoe Regular Shoe Pain Scale: 0-10 Numeric Is Patient Pain Free? Yes Yes WC - Nurse 1 - General Ulcer Measurement Start: 02/05/24 09:44 Freq: Status: Active Protocol: Activity Type Activity Date Activity User E-sign Co-sign Detail Recorded Client Recorded Date Recorded By Document 02/05/24 09:45 DL [email or web address] 02/05/24 10:02 DL Document 02/12/24 13:48 JF 00 02/12/24 13:52 JF Document 02/19/24 11:25 KW g 02/19/24 11:31 KW 02/05/24 02/12/24 02/19/24 09:45 13:48 11:25 Wound Center Nurse 1 4-right side abd -Combined with other wound No -Current Size (cm) - Length 0.7 0.4 -Current Size (cm) - Width 1.0 0.2 -Current Size (cm) - Depth 0.1 0.1 -Total Square Cm 0.70 0.08 -Date of Last Picture (Recall this 02/19/24 field) -Photo Taken No -Epithelialization Small 1-33% -Tunneling No -Undermining/Tunneling No -Circular Undermining No -Exudate Amt Small Medium Small -Exudate Type Serosanguineous Serosanguineous -Wound Margin Fibrotic Scar, Distinct, Thickened Scar Outline Attached -Granulation Amt Large (67-100%) Large (67-100%) Large (67-100%) -Granulation Quality Desha Red Desha -Slough/Fibrin No -Necrosis Amt None Present (0 Small (1-33%) %) -Necrotic Tissue Type Adherent Slough -Structure Exposed N/A N/A -Texture (Sera-wound Skin Appearance) Scarring Assessed Assessed -Moisture (Sera-wound Skin Appearance) No Abnormality Assessed,Dry/ Assessed Scaly -Color (Sera-wound Skin Appearance) No Abnormality Assessed Assessed -Temperature (Sera-wound Skin No Abnormality No Abnormality No Abnormality Appearance) (Pt Warm) (Pt Warm) (Pt Warm) -Tenderness on Palpation (Sera-wound No No No Skin Appearance) -Ulcer Cleansing Soap and Water Wound Cleanser Soap and Water -Foul Odor after Cleansing No No No -Anesthetic Used 5% Lidocaine 4% Lidocaine Gel Solution 3-left side abd -Current Size (cm) - Length 1 -Current Size (cm) - Width 0.5 -Current Size (cm) - Depth 0.1 -Total Square Cm 0.5 -Date of Last Picture (Recall this 02/19/24 field) -Exudate Amt Small -Exudate Type Serosanguineous -Wound Margin Distinct, Outline Attached -Granulation Amt Large (67-100%) -Granulation Quality Desha -Texture (Sera-wound Skin Appearance) Assessed -Moisture (Sera-wound Skin Appearance) Assessed -Color (Sera-wound Skin Appearance) Assessed -Temperature (Sera-wound Skin No Abnormality Appearance) (Pt Warm) -Tenderness on Palpation (Sera-wound No Skin Appearance) -Ulcer Cleansing Soap and Water -Foul Odor after Cleansing No -Anesthetic Used 4% Lidocaine Solution #2 ABD -Combined with other wound No -Current Size (cm) - Length 5 4.7 -Current Size (cm) - Width 5.1 5.3 -Current Size (cm) - Depth 0.1 0.2 -Total Square Cm 25.5 24.91 -Date of Last Picture (Recall this 02/19/24 field) -Photo Taken No -Epithelialization Small 1-33% -Tunneling No -Undermining/Tunneling No -Exudate Amt Medium Medium Medium -Exudate Type Serosanguineous Serosanguineous Serosanguineous -Wound Margin Distinct, Flat & Intact Distinct, Outline Outline Attached Attached -Granulation Amt Medium (34-66%) Large (67-100%) Large (67-100%) -Granulation Quality Red Red Red -Slough/Fibrin Yes -Necrosis Amt Medium (34-66%) Small (1-33%) -Necrotic Tissue Type Adherent Slough Adherent Slough -Structure Exposed N/A N/A -Texture (Sera-wound Skin Appearance) Scarring Assessed Assessed -Moisture (Sera-wound Skin Appearance) No Abnormality Assessed,Dry/ Assessed Scaly -Color (Sera-wound Skin Appearance) No Abnormality Assessed Assessed -Temperature (Sera-wound Skin No Abnormality No Abnormality No Abnormality Appearance) (Pt Warm) (Pt Warm) (Pt Warm) -Tenderness on Palpation (Sera-wound No No No Skin Appearance) -Ulcer Cleansing Soap and Water Wound Cleanser Soap and Water -Foul Odor after Cleansing Yes, Due to No No Product Use -Anesthetic Used 5% Lidocaine 4% Lidocaine Gel Solution Lower Limb Edema Present NA WC - Nurse 2 - General Ulcer CM Notes Start: 02/05/24 09:44 Freq: Status: Active Protocol: Activity Type Activity Date Activity User E-sign Co-sign Detail Recorded Client Recorded Date Recorded By Document 02/12/24 13:56 JF 00 02/12/24 14:01 Document 02/19/24 11:51 [facility] [email or web address] 02/19/24 11:59 BMF 02/12/24 02/19/24 13:56 11:51 Wound Center Nurse 2 4-right side abd -Time 13:57 11:52 -Correct Patient Yes Yes -Correct Side, Site, Position Yes Yes -Correct Procedure Yes Yes -Procedure Performed Yes Yes -Type of Procedure Debridement Debridement -Clinical Debridement Subcutaneous Subcutaneous -Tissue Removed Subcutaneous Subcutaneous -Post Debridement (cm) - Length 1.2 0.4 -Post Debridement (cm) - Width 0.9 0.5 -Post Debridement (cm) - Depth 0.1 0.1 -Total Square (Post) (cm) 1.08 0.20 -Area of Debridement (cm) - Length 1.2 0.4 -Area of Debridement (cm) - Width 0.9 0.5 -Total Square (Area) (cm) 1.08 0.20 -Tunneling No No -Undermining/Tunneling No No -Circular Undermining No No -Wound/Ulcer Outcome Not Healed Not Healed -Ulcer Cleansing Rinsed/ Rinsed/ Irrigated with Irrigated with Saline Saline -Foul Odor after Cleansing No No -Bioengineered Tissue No No -Bleeding Controlled with Pressure Pressure -Treatment Response Procedure Procedure Tolerated Well Tolerated Well -Offloading No -Debridement - Subq, 1st 20sq cm No No 3-left side abd -Time 14:00 11:51 -Correct Patient Yes Yes -Correct Side, Site, Position Yes Yes -Correct Procedure Yes Yes -Procedure Performed Yes Yes -Type of Procedure Debridement Debridement -Clinical Debridement Subcutaneous Subcutaneous -Tissue Removed Subcutaneous Subcutaneous -Post Debridement (cm) - Length 1.0 1.3 -Post Debridement (cm) - Width 1.5 0.5 -Post Debridement (cm) - Depth 0.1 0.1 -Total Square (Post) (cm) 1.50 0.65 -Area of Debridement (cm) - Length 1.0 1.3 -Area of Debridement (cm) - Width 1.5 0.5 -Total Square (Area) (cm) 1.50 0.65 -Tunneling No No -Undermining/Tunneling No No -Circular Undermining No No -Wound/Ulcer Outcome Not Healed Not Healed -Ulcer Cleansing Rinsed/ Rinsed/ Irrigated with Irrigated with Saline Saline -Foul Odor after Cleansing No No -Bioengineered Tissue No No -Bleeding Controlled with Pressure Pressure -Treatment Response Procedure Procedure Tolerated Well Tolerated Well -Offloading No -Debridement - Subq, 1st 20sq cm Yes No -Debridement, SubQ, ea addt'l 20sq cm 1 or part thereof #2 ABD -Time 13:58 11:53 -Correct Patient Yes Yes -Correct Side, Site, Position Yes Yes -Correct Procedure Yes Yes -Procedure Performed Yes Yes -Type of Procedure Debridement Debridement -Clinical Debridement Subcutaneous Subcutaneous -Tissue Removed Subcutaneous Subcutaneous -Post Debridement (cm) - Length 5.6 5 -Post Debridement (cm) - Width 5.3 5.6 -Post Debridement (cm) - Depth 0.1 0.2 -Total Square (Post) (cm) 29.68 28.0 -Area of Debridement (cm) - Length 5.6 5 -Area of Debridement (cm) - Width 5.3 5.6 -Total Square (Area) (cm) 29.68 28.0 -Tunneling No No -Undermining/Tunneling No No -Circular Undermining No No -Wound/Ulcer Outcome Not Healed Not Healed -Ulcer Cleansing Rinsed/ Rinsed/ Irrigated with Irrigated with Saline Saline -Foul Odor after Cleansing No No -Bioengineered Tissue No No -Bleeding Controlled with Pressure Pressure -Treatment Response Procedure Procedure Tolerated Well Tolerated Well -Offloading No -Debridement - Subq, 1st 20sq cm No Yes -Debridement, SubQ, ea addt'l 20sq cm 1 or part thereof Pain Scale: 0-10 Numeric Is Patient Pain Free? Yes Yes WC - Nurse 3 - General Ulcer D/C NN Start: 02/05/24 09:44 Freq: Status: Active Protocol: Activity Type Activity Date Activity User E-sign Co-sign Detail Recorded Client Recorded Date Recorded By Document 02/05/24 09:45 DL [email or web address] 02/05/24 10:02 DL Document 02/07/24 13:14 RB wound 02/07/24 13:16 RB Document 02/12/24 14:07 KW h 02/12/24 14:09 KW Document 02/16/24 11:34 KW ' 02/16/24 11:53 KW 02/05/24 02/07/24 02/12/24 09:45 13:14 14:07 Vital Signs Temperature (97.8 F-99.1 F) 96.5 F L 97.3 F L Temperature Source Temporal Temporal Pulse Rate (60-100) 63 86 Pulse Location Monitor Monitor Respiratory Rate (12-18) 18 18 Respiratory rate source Observation Oxygen Delivery Method Blood Pressure (90/60-120/80) 135/66 H 126/67 H Blood Pressure Mean (mm Hg) 89 86 Source Monitor Position Sitting Blood Pressure Location Left Arm Pain Scale: 0-10 Numeric Is Patient Pain Free? Yes Yes Yes Wound Care Center Nurse 3 4-right side abd -Ulcer Cleansing Wound Cleanser -Primary Dressing Applied Silvercel -Other Dressing silvercell silvercel -Primary Dressing Covered/Secured with Dry Gauze,Dry Dry Gauze, Dry Gauze, Gauze & Roll Secured with Secured with Gauze,Secured Tape Tape with Tape -Silvercel 1 3-left side abd -Other Dressing silvercel -Primary Dressing Covered/Secured with Secured with Tape #2 ABD -Ulcer Cleansing Soap and Water -Foul Odor after Cleansing No -Other Dressing silvercell iodoform iodoform packing to umbilus and silvercel to inferioir abd wound -Primary Dressing Covered/Secured with Dry Gauze, Dry Gauze, Dry Gauze, Secured with Secured with Secured with Tape Tape Tape -Other Covering ABD -Wound Comment(s) Umbilicus wound dressed with Iodoform as ordered. WC - Visit Discharge Discharge Condition Stable Stable Ambulatory Status Wheelchair Wheelchair Transportation Private Auto Private Auto Medication Reconcilliation completed & No No provided to patient/care provider Clinical Summary of Care Provided Yes Yes 02/16/24 11:34 Vital Signs Temperature (97.8 F-99.1 F) 98.1 F Temperature Source Temporal Pulse Rate (60-100) 79 Pulse Location Monitor Respiratory Rate (12-18) 18 Respiratory rate source Observation Oxygen Delivery Method Room Air Blood Pressure (90/60-120/80) 135/88 H Blood Pressure Mean (mm Hg) 103 Source Monitor Position Sitting Blood Pressure Location Left Arm Pain Scale: 0-10 Numeric Is Patient Pain Free? Yes Wound Care Center Nurse 3 4-right side abd -Ulcer Cleansing Soap and Water -Primary Dressing Applied -Other Dressing PT OWN SILVERCEL -Primary Dressing Covered/Secured with Dry Gauze, Secured with Tape -Silvercel 3-left side abd -Other Dressing PT OWN SILVERCEL -Primary Dressing Covered/Secured with Dry Gauze, Secured with Tape #2 ABD -Ulcer Cleansing -Foul Odor after Cleansing -Other Dressing PT OWN SILVERCEL -Primary Dressing Covered/Secured with Dry Gauze, Secured with Tape -Other Covering -Wound Comment(s) WC - Visit Discharge Discharge Condition Stable Ambulatory Status Wheelchair Transportation Private Auto Medication Reconcilliation completed & No provided to patient/care provider Clinical Summary of Care Provided Yes Additional Wound Wound debrided: #4 lateral abdominal ulcer in skin fold Laterality: Right Wound Grade/Stage: Stage III Type of Debridement: Excisional debridement Anesthesia Used: 5% Lidocaine Gel Depth: Down to and including healthy tissue and in the subcutaneous layer Percentage of wound debrided: 100 Instrument Used: 3mm curette Tissue Removed: Non viable tissue and slough Severity: Fat Layer Exposed Amount of bleeding with debridement: Mild Bleeding Controlled with: Pressure and Compression and gauze Patient tolerated procedure: Patient tolerated procedure well Additional Wound Wound debrided: #3 lateral abdominal fold ulcer Laterality: Left Wound Grade/Stage: Stage III Type of Debridement: Excisional debridement Anesthesia Used: 5% Lidocaine Gel Depth: Down to and including healthy tissue Percentage of wound debrided: 100 Instrument Used: 3mm curette Tissue Removed: Non viable tissue and slough Severity: Fat Layer Exposed Amount of bleeding with debridement: Mild Bleeding Controlled with: Pressure Patient tolerated procedure: Patient tolerated procedure well Assessment/Plan Assessment/Plan (1) Skin ulcer of abdominal wall with fat layer exposed: CODE(S): L98.492 - Non-pressure chronic ulcer of skin of other sites with fat layer exposed (2) Obesity: CODE(S): E66.9 - Obesity, unspecified QUALIFIERS: Obesity type: due to excess calories Obesity classification: adult class 3 (BMI >= 40) Serious obesity comorbidity presence: with serious comorbidity Body mass index: BMI 70 or greater Qualified Code(s): E66.01 - Morbid (severe) obesity due to excess calories; Z68.45 - Body mass index [BMI] 70 or greater, adult (3) Umbilicus discharge: CODE(S): R19.8 - Other specified symptoms and signs involving the digestive system and abdomen (4) Yeast infection of the skin: CODE(S): B37.2 - Candidiasis of skin and nail PLAN: Plan Patient evaluated at the wound healing center today. Wound care for the ulcers on her right and left lateral abdomen and the lower abdomen/pannus area place Silvercel/silver alginate daily covered with gauze/ABD/[place] SAP daily to these ulcers after washing with soap and water. For her umbilicus, will continue placing a strip of 1/4 Iodoform gauze to help absorb the moisture and prevent maceration and skin rubbing against itself. She is coming into the wound center for nurses visit 1-2 times per week to have assistance with her dressings and her daughter could help change them the other days at home. Wound culture were collected [facility] and she was placed on Doxycycline prophylactically. The wound cultures were positive for Pseudomonas aeruginosa, Proteus mirabilis, and Corynebacterium striatum. These bacteria are not sensitive to the Doxycycline. She has finished the Levaquin to cover the Pseudomonas and Proteus. The Corynebacterium is skin contaminant. Reinforced to her to try and elevate her pannus on a pillow so that some of the swelling may decrease in the area that is most dependent. She has seen Dr. Mcgowan in his office to discuss a panniculectomy. With her hernia, it is recommended that she go to a tertiary facility for further surgical options She was scheduled to have an ultrasound of her abdomen at [facility] and it showed an abdominal hernia. She states she was removed from bariatric surgery program and was referred to the obesity medicine, her appointment is at the end of February. She states that she is not able to get enough protein intake and can not afford the protein supplements, therefore, she may not be a candidate for the bariatric surgery. I stressed the importance of increased protein intake for wound healing. The increased protein intake/supplementation is necessary no matter what treatment plan that she decides to have. She will follow up 1 week with me. She may follow up 1-2 times per week for nurse's visits to help with wound care. Instructed to call if she has any questions or concerns.
--- NOTE | 2024-02-21 09:28 | WC ---
PHOTO 02/19/24 ABDOMEN
--- NOTE | 2024-02-21 09:31 | WC ---
PHOTO 02/19/24 Niru KAPOOR
--- NOTE | 2024-02-21 09:35 | WC ---
PHOTO 02/19/24 Ramiro KAPOOR
[2024-02-21 15:39] VITALS: BP 174/86; PULSE 80; RESP 18; TEMP 35.7; BMI 72.0
[2024-02-23 10:46] VITALS: BP 178/81; PULSE 77; RESP 18; TEMP 35.8; BMI 72.0
[2024-02-26 10:09] VITALS: BP 97/55; PULSE 84; RESP 18; TEMP 35.7; BMI 72.0
--- NOTE | 2024-02-26 11:12 | PCM.WC.PN ---
History of Present Illness Date of Service: 02/26/24 Chief Complaint: Ulcer on abdomen and leaky belly button. History of Wound: Patient is a 48-year-old female who presented on her pannus. She states that it was just noticed 1 to 2 weeks ago. She is obese and has a difficult time walking due to knee pain. She is able to transfer to and from her wheelchair. She states she is still able to drive. She states that she was bathing a couple weeks ago and discovered this ulcer. She states that it does have drainage. She has been covering it with a disposable pad to absorb the drainage. She also states that she has issues with drainage from her umbilicus. It will sometimes have a strong odor and also will bleed on occasion. She states she has seen dermatology and a general surgeon about this and they stated there was not much to do for this. Dermatology has put her on Ketoconazole cream for rashes in skin folds, that she has not recently been using. While examining her it was discovered that she also has an ulcer on her right lateral abdomen and her left lateral abdomen in a skin fold. She states she has a hard time bathing herself due to the weight of her pannus. She has a history of hypothyroidism, pre diabetes, polycystic ovary, asthma, sleep apnea, an ulcer on her left lower leg, and right knee arthritis. Wound culture obtained 09/12/23 at [facility] and was positive for Pseudomonas aeruginosa, Proteus mirabilis, and Corynebacterium striatum. She was treated with Doxycycline before the culture results were back. Will start her on Levaquin. She comes in today for further evaluation of her ulcer. She denies fever, chills, nausea or vomiting. Progress of Wound: She has been coming into the wound center 1-2 times a week for nurse visits to assist with her wound care. The ulcer on the right lateral abdomen in the pannus skin fold is healed today. Lower abdominal/pannus ulcer is pink and slightly smaller in size. The ulcer is located in the most dependent portion of her pannus, there is edema present. The ulcer on her left lateral abdomen pannus skin fold is smaller. She has been placing iodoform gauze into her umbilicus stalk to help absorb the drainage that is present. Objective Data Objective Data Vital Signs: Vital Signs Temp Pulse Resp BP Pulse Ox O2 Del Method 96.2 F L 84 18 97/55 L 98 Room Air 02/26/24 10:09 02/26/24 10:09 02/26/24 10:09 02/26/24 10:09 02/05/24 00:42 02/26/24 10:09 Oxygen Delivery Method Room Air Weight: 433 lb Body Mass Index (BMI) 72.0 Charges/Coding Procedures Integumentary [id number]: [id number] Silvia subq tissue 20 sq cm/< Add On Codes: 33992 Silvia subq tissue add-on Debridement Note Debridement Note Wound debrided: Lower abdominal pannus Laterality: Not Applicable Wound Grade/Stage: Stage III Type of Debridement: Excisional debridement Anesthesia Used: 5% Lidocaine Gel Depth: Down to and including healthy tissue and in the subcutaneous layer Percentage of wound debrided: 100 Instrument Used: 7mm curette Tissue Removed: Non viable tissue and slough Severity: Fat Layer Exposed Amount of bleeding with debridement: Mild Bleeding Controlled with: Compression and gauze Patient tolerated procedure: Patient tolerated procedure well Post-Debridement Measurements and Additional Note: Post-Debridement Measurements/Treatment - Nurse 1 - General Ulcer Assessment Start: 02/05/24 09:44 Freq: Status: Active Protocol: BALDEMAR Activity Type Activity Date Activity User E-sign Co-sign Detail Recorded Client Recorded Date Recorded By Document 02/05/24 09:45 DL [email or web address] 02/05/24 10:02 DL Document 02/07/24 13:14 RB wound 02/07/24 13:16 RB Document 02/12/24 13:48 JF 00 02/12/24 13:52 JF Document 02/16/24 11:34 KW ' 02/16/24 11:53 KW Document 02/19/24 11:25 KW g 02/19/24 11:31 KW Document 02/21/24 15:39 RB WOUND 02/21/24 15:44 RB Document 02/23/24 10:46 KW l 02/23/24 11:15 KW Document 02/26/24 10:09 KW l 02/26/24 10:25 KW 02/05/24 02/07/24 02/12/24 09:45 13:14 13:48 - Today's Visit Information Type of service Nurse-only Nurse-only Follow-up Visit Visit Visit (Physician/RUBBER ROLLER GRINDER OPERATOR ) Arrival Mode Ambulatory, Wheelchair Ambulatory, Wheelchair Wheelchair Transfer Assistance None Manual Manual Patient Identification Verified (Name & Yes Yes Yes ) Patient Requires Transmission-Based No No No Precautions Height and Weight Body Mass Index (BMI) 72.0 72.0 72.0 BMI Classification Obese Obese Obese Vital Signs Temperature (97.8 F-99.1 F) 96.5 F L 97.3 F L 97.4 F L Temperature Source Temporal Temporal Temporal Pulse Rate (60-100) 63 86 72 Pulse Location Monitor Monitor Monitor Respiratory Rate (12-18) 18 18 18 Respiratory rate source Observation Observation Oxygen Delivery Method Blood Pressure (90/60-120/80) 135/66 H 126/67 H 137/50 H Blood Pressure Mean (mm Hg) 89 86 79 Source Monitor Monitor Position Sitting Sitting Blood Pressure Location Left Arm Left Arm History Since Last Visit- (Skip if this is Patient's initial visit) Have you changed medications since your No No last visit? Any new allergies or adverse reactions No No Had a fall/change in ADL's that may No No increase risk of falls Signs or symptoms of abuse and/or No No neglect since last visit Have you been in the hospital since your No No last visit? Has dressing in place as prescribed Yes Yes Has compression in place as prescribed N/A N/A Has offloadiing in place as prescribed N/A N/A Experienced any changes in pain level or No No management Left Footwear Regular Shoe Right Footwear Regular Shoe Pain Scale: 0-10 Numeric Is Patient Pain Free? Yes Yes Yes 02/16/24 02/19/24 02/21/24 11:34 11:25 15:39 - Today's Visit Information Type of service Nurse-only Follow-up Visit Nurse-only Visit (Physician/RUBBER ROLLER GRINDER OPERATOR Visit ) Arrival Mode Wheelchair Ambulatory Wheelchair Transfer Assistance None Patient Identification Verified (Name & Yes Yes Yes ) Patient Requires Transmission-Based No Precautions Height and Weight Body Mass Index (BMI) 72.0 72.0 72.0 BMI Classification Obese Obese Obese Vital Signs Temperature (97.8 F-99.1 F) 98.1 F 96.8 F L 96.3 F L Temperature Source Temporal Temporal Temporal Pulse Rate (60-100) 79 65 80 Pulse Location Monitor Monitor Monitor Respiratory Rate (12-18) 18 18 18 Respiratory rate source Observation Observation Observation Oxygen Delivery Method Room Air Room Air Blood Pressure (90/60-120/80) 135/88 H 153/69 H 174/86 H Blood Pressure Mean (mm Hg) 103 97 115 Source Monitor Monitor Monitor Position Sitting Semi-Fowlers Semi-Fowlers Blood Pressure Location Left Arm Left Arm Left Arm History Since Last Visit- (Skip if this is Patient's initial visit) Have you changed medications since your No No No last visit? Any new allergies or adverse reactions No No No Had a fall/change in ADL's that may No No No increase risk of falls Signs or symptoms of abuse and/or No No No neglect since last visit Have you been in the hospital since your No No No last visit? Has dressing in place as prescribed Yes Yes Yes Has compression in place as prescribed N/A N/A No Has offloadiing in place as prescribed N/A N/A No Experienced any changes in pain level or No No No management Left Footwear Regular Shoe Regular Shoe Right Footwear Regular Shoe Regular Shoe Pain Scale: 0-10 Numeric Is Patient Pain Free? Yes Yes Yes 02/23/24 02/26/24 10:46 10:09 - Today's Visit Information Type of service Follow-up Visit Follow-up Visit (Physician/RUBBER ROLLER GRINDER OPERATOR (Physician/RUBBER ROLLER GRINDER OPERATOR ) ) Arrival Mode Ambulatory,Cane Wheelchair Transfer Assistance Patient Identification Verified (Name & Yes Yes ) Patient Requires Transmission-Based Precautions Height and Weight Body Mass Index (BMI) 72.0 72.0 BMI Classification Obese Obese Vital Signs Temperature (97.8 F-99.1 F) 96.5 F L 96.2 F L Temperature Source Temporal Temporal Pulse Rate (60-100) 77 84 Pulse Location Monitor Monitor Respiratory Rate (12-18) 18 18 Respiratory rate source Observation Observation Oxygen Delivery Method Room Air Room Air Blood Pressure (90/60-120/80) 178/81 H 97/55 L Blood Pressure Mean (mm Hg) 113 69 Source Monitor Monitor Position Semi-Fowlers Semi-Fowlers Blood Pressure Location Left Arm Left Arm History Since Last Visit- (Skip if this is Patient's initial visit) Have you changed medications since your No No last visit? Any new allergies or adverse reactions No No Had a fall/change in ADL's that may No No increase risk of falls Signs or symptoms of abuse and/or No No neglect since last visit Have you been in the hospital since your No No last visit? Has dressing in place as prescribed Yes Yes Has compression in place as prescribed N/A N/A Has offloadiing in place as prescribed N/A N/A Experienced any changes in pain level or No No management Left Footwear Regular Shoe Regular Shoe Right Footwear Regular Shoe Regular Shoe Pain Scale: 0-10 Numeric Is Patient Pain Free? Yes Yes WC - Nurse 1 - General Ulcer Measurement Start: 02/05/24 09:44 Freq: Status: Active Protocol: Activity Type Activity Date Activity User E-sign Co-sign Detail Recorded Client Recorded Date Recorded By Document 02/05/24 09:45 DL [email or web address] 02/05/24 10:02 DL Document 02/12/24 13:48 JF 00 02/12/24 13:52 JF Document 02/19/24 11:25 KW g 02/19/24 11:31 KW Document 02/21/24 15:39 RB WOUND 02/21/24 15:44 RB Document 02/26/24 10:09 KW l 02/26/24 10:25 KW 02/05/24 02/12/24 02/19/24 09:45 13:48 11:25 Wound Center Nurse 1 4-right side abd -Combined with other wound No -Current Size (cm) - Length 0.7 0.4 -Current Size (cm) - Width 1.0 0.2 -Current Size (cm) - Depth 0.1 0.1 -Total Square Cm 0.70 0.08 -Date of Last Picture (Recall this 02/19/24 field) -Photo Taken No -Epithelialization Small 1-33% -Tunneling No -Undermining/Tunneling No -Circular Undermining No -Exudate Amt Small Medium Small -Exudate Type Serosanguineous Serosanguineous -Wound Margin Fibrotic Scar, Distinct, Thickened Scar Outline Attached -Granulation Amt Large (67-100%) Large (67-100%) Large (67-100%) -Granulation Quality [place] -Slough/Fibrin No -Necrosis Amt None Present (0 Small (1-33%) %) -Necrotic Tissue Type Adherent Slough -Structure Exposed N/A N/A -Texture (Sera-wound Skin Appearance) Scarring Assessed Assessed -Moisture (Sera-wound Skin Appearance) No Abnormality Assessed,Dry/ Assessed Scaly -Color (Sera-wound Skin Appearance) No Abnormality Assessed Assessed -Temperature (Sera-wound Skin No Abnormality No Abnormality No Abnormality Appearance) (Pt Warm) (Pt Warm) (Pt Warm) -Tenderness on Palpation (Sera-wound No No No Skin Appearance) -Ulcer Cleansing Soap and Water Wound Cleanser Soap and Water -Foul Odor after Cleansing No No No -Anesthetic Used 5% Lidocaine 4% Lidocaine Gel Solution 3-left side abd -Current Size (cm) - Length 1 -Current Size (cm) - Width 0.5 -Current Size (cm) - Depth 0.1 -Total Square Cm 0.5 -Date of Last Picture (Recall this 02/19/24 field) -Photo Taken -Exudate Amt Small -Exudate Type Serosanguineous -Wound Margin Distinct, Outline Attached -Granulation Amt Large (67-100%) -Granulation Quality [place] -Necrosis Amt -Structure Exposed -Texture (Sera-wound Skin Appearance) Assessed -Moisture (Sera-wound Skin Appearance) Assessed -Color (Sera-wound Skin Appearance) Assessed -Temperature (Sera-wound Skin No Abnormality Appearance) (Pt Warm) -Tenderness on Palpation (Sera-wound No Skin Appearance) -Ulcer Cleansing Soap and Water -Foul Odor after Cleansing No -Anesthetic Used 4% Lidocaine Solution #2 ABD -Combined with other wound No -Current Size (cm) - Length 5 4.7 -Current Size (cm) - Width 5.1 5.3 -Current Size (cm) - Depth 0.1 0.2 -Total Square Cm 25.5 24.91 -Date of Last Picture (Recall this 02/19/24 field) -Photo Taken No -Epithelialization Small 1-33% -Tunneling No -Undermining/Tunneling No -Exudate Amt Medium Medium Medium -Exudate Type Serosanguineous Serosanguineous Serosanguineous -Wound Margin Distinct, Flat & Intact Distinct, Outline Outline Attached Attached -Granulation Amt Medium (34-66%) Large (67-100%) Large (67-100%) -Granulation Quality Red Red Red -Slough/Fibrin Yes -Necrosis Amt Medium (34-66%) Small (1-33%) -Necrotic Tissue Type Adherent Slough Adherent Slough -Structure Exposed N/A N/A -Texture (Sera-wound Skin Appearance) Scarring Assessed Assessed -Moisture (Sera-wound Skin Appearance) No Abnormality Assessed,Dry/ Assessed Scaly -Color (Sera-wound Skin Appearance) No Abnormality Assessed Assessed -Temperature (Sera-wound Skin No Abnormality No Abnormality No Abnormality Appearance) (Pt Warm) (Pt Warm) (Pt Warm) -Tenderness on Palpation (Sera-wound No No No Skin Appearance) -Ulcer Cleansing Soap and Water Wound Cleanser Soap and Water -Foul Odor after Cleansing Yes, Due to No No Product Use -Anesthetic Used 5% Lidocaine 4% Lidocaine Gel Solution Lower Limb Edema Present NA 02/21/24 02/26/24 15:39 10:09 Wound Center Nurse 1 4-right side abd -Combined with other wound No -Current Size (cm) - Length 0.1 -Current Size (cm) - Width 0.1 -Current Size (cm) - Depth 0.1 -Total Square Cm 0.01 -Date of Last Picture (Recall this field) -Photo Taken Yes -Epithelialization -Tunneling -Undermining/Tunneling -Circular Undermining -Exudate Amt None Present -Exudate Type Serosanguineous -Wound Margin Flat & Intact -Granulation Amt Medium (34-66%) Large (67-100%) -Granulation Quality [place] -Slough/Fibrin Yes -Necrosis Amt Medium (34-66%) None Present (0 %) -Necrotic Tissue Type Adherent Slough -Structure Exposed N/A N/A -Texture (Sera-wound Skin Appearance) Assessed Scarring -Moisture (Sera-wound Skin Appearance) Assessed No Abnormality -Color (Sera-wound Skin Appearance) Assessed No Abnormality -Temperature (Sera-wound Skin No Abnormality No Abnormality Appearance) (Pt Warm) (Pt Warm) -Tenderness on Palpation (Srea-wound No No Skin Appearance) -Ulcer Cleansing Wound Cleanser Soap and Water -Foul Odor after Cleansing No No -Anesthetic Used 5% Lidocaine Gel 3-left side abd -Current Size (cm) - Length 0.6 -Current Size (cm) - Width 0.8 -Current Size (cm) - Depth 0.1 -Total Square Cm 0.48 -Date of Last Picture (Recall this field) -Photo Taken Yes -Exudate Amt Medium -Exudate Type Serosanguineous -Wound Margin Distinct, Outline Attached -Granulation Amt Large (67-100%) -Granulation Quality Red -Necrosis Amt None Present (0 %) -Structure Exposed N/A -Texture (Sera-wound Skin Appearance) Scarring -Moisture (Sera-wound Skin Appearance) No Abnormality -Color (Sera-wound Skin Appearance) No Abnormality -Temperature (Sera-wound Skin No Abnormality Appearance) (Pt Warm) -Tenderness on Palpation (Sera-wound Skin Appearance) -Ulcer Cleansing Soap and Water -Foul Odor after Cleansing No -Anesthetic Used 5% Lidocaine Gel #2 ABD -Combined with other wound -Current Size (cm) - Length 5.8 -Current Size (cm) - Width 5 -Current Size (cm) - Depth 0.1 -Total Square Cm 29.0 -Date of Last Picture (Recall this field) -Photo Taken Yes -Epithelialization -Tunneling -Undermining/Tunneling -Exudate Amt Medium -Exudate Type Serosanguineous -Wound Margin Well Defined, Not Attached -Granulation Amt -Granulation Quality Red -Slough/Fibrin -Necrosis Amt Medium (34-66%) -Necrotic Tissue Type Adherent Slough -Structure Exposed N/A -Texture (Sera-wound Skin Appearance) Scarring -Moisture (Sera-wound Skin Appearance) No Abnormality -Color (Sera-wound Skin Appearance) No Abnormality -Temperature (Sera-wound Skin No Abnormality Appearance) (Pt Warm) -Tenderness on Palpation (Sera-wound Skin Appearance) -Ulcer Cleansing Soap and Water -Foul Odor after Cleansing No -Anesthetic Used 5% Lidocaine Gel Lower Limb Edema Present WC - Nurse 2 - General Ulcer CM Notes Start: 02/05/24 09:44 Freq: Status: Active Protocol: Activity Type Activity Date Activity User E-sign Co-sign Detail Recorded Client Recorded Date Recorded By Document 02/12/24 13:56 00 02/12/24 14:01 Document 02/19/24 11:51 [facility] [id number] 02/19/24 11:59 BM Document 02/26/24 10:39 BM [id number] 02/26/24 10:45 BMF 02/12/24 02/19/24 02/26/24 13:56 11:51 10:39 Wound Center Nurse 2 4-right side abd -Time 13:57 11:52 -Correct Patient Yes Yes -Correct Side, Site, Position Yes Yes -Correct Procedure Yes Yes -Procedure Performed Yes Yes -Type of Procedure Debridement Debridement -Clinical Debridement Subcutaneous Subcutaneous -Tissue Removed Subcutaneous Subcutaneous -Post Debridement (cm) - Length 1.2 0.4 0 -Post Debridement (cm) - Width 0.9 0.5 0 -Post Debridement (cm) - Depth 0.1 0.1 0 -Total Square (Post) (cm) 1.08 0.20 0 -Area of Debridement (cm) - Length 1.2 0.4 0 -Area of Debridement (cm) - Width 0.9 0.5 0 -Total Square (Area) (cm) 1.08 0.20 0 -Tunneling No No -Undermining/Tunneling No No -Circular Undermining No No -Wound/Ulcer Outcome Not Healed Not Healed Healed- Epithelialized -Ulcer Cleansing Rinsed/ Rinsed/ Irrigated with Irrigated with Saline Saline -Foul Odor after Cleansing No No -Bioengineered Tissue No No -Bleeding Controlled with Pressure Pressure -Treatment Response Procedure Procedure Tolerated Well Tolerated Well -Offloading No -Debridement - Subq, 1st 20sq cm No No 3-left side abd -Time 14:00 11:51 10:40 -Correct Patient Yes Yes Yes -Correct Side, Site, Position Yes Yes Yes -Correct Procedure Yes Yes Yes -Procedure Performed Yes Yes Yes -Type of Procedure Debridement Debridement Debridement -Clinical Debridement Subcutaneous Subcutaneous Subcutaneous -Tissue Removed Subcutaneous Subcutaneous Subcutaneous -Post Debridement (cm) - Length 1.0 1.3 0.3 -Post Debridement (cm) - Width 1.5 0.5 0.7 -Post Debridement (cm) - Depth 0.1 0.1 0.1 -Total Square (Post) (cm) 1.50 0.65 0.21 -Area of Debridement (cm) - Length 1.0 1.3 0.3 -Area of Debridement (cm) - Width 1.5 0.5 0.7 -Total Square (Area) (cm) 1.50 0.65 0.21 -Tunneling No No No -Undermining/Tunneling No No No -Circular Undermining No No No -Wound/Ulcer Outcome Not Healed Not Healed Not Healed -Ulcer Cleansing Rinsed/ Rinsed/ Rinsed/ Irrigated with Irrigated with Irrigated with Saline Saline Saline -Foul Odor after Cleansing No No No -Bioengineered Tissue No No No -Bleeding Controlled with Pressure Pressure Pressure -Treatment Response Procedure Procedure Procedure Tolerated Well Tolerated Well Tolerated Well -Offloading No -Debridement - Subq, 1st 20sq cm Yes No No -Debridement, SubQ, ea addt'l 20sq cm 1 or part thereof #2 ABD -Time 13:58 11:53 10:41 -Correct Patient Yes Yes Yes -Correct Side, Site, Position Yes Yes Yes -Correct Procedure Yes Yes Yes -Procedure Performed Yes Yes Yes -Type of Procedure Debridement Debridement Debridement -Clinical Debridement Subcutaneous Subcutaneous Subcutaneous -Tissue Removed Subcutaneous Subcutaneous Subcutaneous -Post Debridement (cm) - Length 5.6 5 5 -Post Debridement (cm) - Width 5.3 5.6 5.3 -Post Debridement (cm) - Depth 0.1 0.2 0.1 -Total Square (Post) (cm) 29.68 28.0 26.5 -Area of Debridement (cm) - Length 5.6 5 5 -Area of Debridement (cm) - Width 5.3 5.6 5.3 -Total Square (Area) (cm) 29.68 28.0 26.5 -Tunneling No No -Undermining/Tunneling No No -Circular Undermining No No -Wound/Ulcer Outcome Not Healed Not Healed Not Healed -Ulcer Cleansing Rinsed/ Rinsed/ Rinsed/ Irrigated with Irrigated with Irrigated with Saline Saline Saline -Foul Odor after Cleansing No No No -Bioengineered Tissue No No No -Bleeding Controlled with Pressure Pressure Pressure -Treatment Response Procedure Procedure Procedure Tolerated Well Tolerated Well Tolerated Well -Offloading No -Debridement - Subq, 1st 20sq cm No Yes Yes -Debridement, SubQ, ea addt'l 20sq cm 1 1 or part thereof Pain Scale: 0-10 Numeric Is Patient Pain Free? Yes Yes Yes WC - Nurse 3 - General Ulcer D/C NN Start: 02/05/24 09:44 Freq: Status: Active Protocol: Activity Type Activity Date Activity User E-sign Co-sign Detail Recorded Client Recorded Date Recorded By Document 02/05/24 09:45 DL [email or web address] 02/05/24 10:02 DL Document 02/07/24 13:14 RB wound 02/07/24 13:16 RB Document 02/12/24 14:07 KW h 02/12/24 14:09 KW Document 02/16/24 11:34 KW ' 07/12/24 11:53 KW Document 02/19/24 12:08 KW g 02/19/24 12:11 KW Document 02/21/24 15:39 RB WOUND 02/21/24 15:44 RB Document 02/23/24 11:16 KW l 02/23/24 11:16 KW Document 02/26/24 10:49 ML ; 02/26/24 10:50 ML 02/05/24 02/07/24 02/12/24 09:45 13:14 14:07 Vital Signs Temperature (97.8 F-99.1 F) 96.5 F L 97.3 F L Temperature Source Temporal Temporal Pulse Rate (60-100) 63 86 Pulse Location Monitor Monitor Respiratory Rate (12-18) 18 18 Respiratory rate source Observation Oxygen Delivery Method Blood Pressure (90/60-120/80) 135/66 H 126/67 H Blood Pressure Mean (mm Hg) 89 86 Source Monitor Position Sitting Blood Pressure Location Left Arm Pain Scale: 0-10 Numeric Is Patient Pain Free? Yes Yes Yes Wound Care Center Nurse 3 4-right side abd -Ulcer Cleansing Wound Cleanser -Foul Odor after Cleansing -Primary Dressing Applied Silvercel -Other Dressing silvercell silvercel -Primary Dressing Covered/Secured with Dry Gauze,Dry Dry Gauze, Dry Gauze, Gauze & Roll Secured with Secured with Gauze,Secured Tape Tape with Tape -Silvercel 1 3-left side abd -Ulcer Cleansing -Foul Odor after Cleansing -Other Dressing silvercel -Primary Dressing Covered/Secured with Secured with Tape -Other Covering #2 ABD -Ulcer Cleansing Soap and Water -Foul Odor after Cleansing No -Other Dressing silvercell iodoform iodoform packing to umbilus and silvercel to inferioir abd wound -Primary Dressing Covered/Secured with Dry Gauze, Dry Gauze, Dry Gauze, Secured with Secured with Secured with Tape Tape Tape -Other Covering ABD -Wound Comment(s) Umbilicus wound dressed with Iodoform as ordered. Treatment Response WC - Visit Discharge Discharge Condition Stable Stable Ambulatory Status Wheelchair Wheelchair Transportation Private Auto Private Auto Medication Reconcilliation completed & No No provided to patient/care provider Clinical Summary of Care Provided Yes Yes 02/16/24 02/19/24 02/21/24 11:34 12:08 15:39 Vital Signs Temperature (97.8 F-99.1 F) 98.1 F 96.3 F L Temperature Source Temporal Temporal Pulse Rate (60-100) 79 80 Pulse Location Monitor Monitor Respiratory Rate (12-18) 18 18 Respiratory rate source Observation Observation Oxygen Delivery Method Room Air Blood Pressure (90/60-120/80) 135/88 H 174/86 H Blood Pressure Mean (mm Hg) 103 115 Source Monitor Monitor Position Sitting Semi-Fowlers Blood Pressure Location Left Arm Left Arm Pain Scale: 0-10 Numeric Is Patient Pain Free? Yes Yes Yes Wound Care Center Nurse 3 4-right side abd -Ulcer Cleansing Soap and Water Rinsed/ Irrigated with Saline -Foul Odor after Cleansing No -Primary Dressing Applied Silvercel Silvercel -Other Dressing PT OWN SILVERCEL -Primary Dressing Covered/Secured with Dry Gauze, Dry Gauze, Dry Gauze, Secured with Secured with Secured with Tape Tape Tape -Silvercel 1 1 3-left side abd -Ulcer Cleansing Rinsed/ Irrigated with Saline -Foul Odor after Cleansing No -Other Dressing PT OWN SILVERCELL silvercel SILVERCEL -Primary Dressing Covered/Secured with Dry Gauze, Dry Gauze, Dry Gauze, Secured with Secured with Secured with Tape Tape Tape -Other Covering ABD #2 ABD -Ulcer Cleansing Rinsed/ Irrigated with Saline -Foul Odor after Cleansing No -Other Dressing PT OWN SILVERCELL 1/4 iodoform SILVERCEL -Primary Dressing Covered/Secured with Dry Gauze, Dry Gauze, Dry Gauze, Secured with Secured with Secured with Tape Tape Tape -Other Covering ABD -Wound Comment(s) iODOFORM 1 TO ABD Treatment Response Procedure Procedure Tolerated Well Tolerated Well WC - Visit Discharge Discharge Condition Stable Stable Stable Ambulatory Status Wheelchair Ambulatory, Wheelchair Wheelchair Transportation Private Auto Private Auto Private Auto Medication Reconcilliation completed & No No provided to patient/care provider Clinical Summary of Care Provided Yes Yes 02/23/24 02/26/24 11:16 10:49 Vital Signs Temperature (97.8 F-99.1 F) Temperature Source Pulse Rate (60-100) Pulse Location Respiratory Rate (12-18) Respiratory rate source Oxygen Delivery Method Blood Pressure (90/60-120/80) Blood Pressure Mean (mm Hg) Source Position Blood Pressure Location Pain Scale: 0-10 Numeric Is Patient Pain Free? Yes Yes Wound Care Center Nurse 3 4-right side abd -Ulcer Cleansing -Foul Odor after Cleansing -Primary Dressing Applied -Other Dressing PT SILVERCEL -Primary Dressing Covered/Secured with Dry Gauze, Secured with Tape -Silvercel 3-left side abd -Ulcer Cleansing Rinsed/ Irrigated with Saline -Foul Odor after Cleansing -Other Dressing PT SILVERCEL silver alginate ,abd -Primary Dressing Covered/Secured with Dry Gauze, Secured with Secured with Tape Tape -Other Covering #2 ABD -Ulcer Cleansing Rinsed/ Irrigated with Saline -Foul Odor after Cleansing -Other Dressing PT SILVERCEL silver albinate ,abd -Primary Dressing Covered/Secured with Dry Gauze, Secured with Secured with Tape Tape -Other Covering -Wound Comment(s) Treatment Response WC - Visit Discharge Discharge Condition Ambulatory Status Transportation Medication Reconcilliation completed & provided to patient/care provider Clinical Summary of Care Provided Additional Wound Wound debrided: #4 lateral abdominal ulcer in skin fold Laterality: Left Wound Grade/Stage: Stage III Type of Debridement: Excisional debridement Anesthesia Used: 5% Lidocaine Gel Depth: Down to and including healthy tissue and in the subcutaneous layer Percentage of wound debrided: 100 Instrument Used: 3mm curette Tissue Removed: Non viable tissue and slough Severity: Fat Layer Exposed Amount of bleeding with debridement: Mild Bleeding Controlled with: Pressure and Compression and gauze Patient tolerated procedure: Patient tolerated procedure well Assessment/Plan Assessment/Plan (1) Skin ulcer of abdominal wall with fat layer exposed: CODE(S): L98.492 - Non-pressure chronic ulcer of skin of other sites with fat layer exposed (2) Obesity: CODE(S): E66.9 - Obesity, unspecified QUALIFIERS: Obesity type: due to excess calories Obesity classification: adult class 3 (BMI >= 40) Serious obesity comorbidity presence: with serious comorbidity Body mass index: BMI 70 or greater Qualified Code(s): E66.01 - Morbid (severe) obesity due to excess calories; Z68.45 - Body mass index [BMI] 70 or greater, adult (3) Umbilicus discharge: CODE(S): R19.8 - Other specified symptoms and signs involving the digestive system and abdomen (4) Yeast infection of the skin: CODE(S): B37.2 - Candidiasis of skin and nail PLAN: Plan Patient evaluated at the wound healing center today. Wound care for the ulcers on her left lateral abdomen and the lower abdomen/pannus area place Silvercel/silver alginate daily covered with gauze/ABD/[place] SAP daily to these ulcers after washing with soap and water. On the right lateral abdomen skin fold that is healed today, place dry gauze to prevent the skin from rubbing against skin and reopening the ulcer. Change this every other day. For her umbilicus, will continue placing a strip of 1/4 Iodoform gauze to help absorb the moisture and prevent maceration and skin rubbing against itself. She is coming into the wound center for nurses visit 1-2 times per week to have assistance with her dressings and her daughter could help change them the other days at home. Wound culture were collected [facility] and she was placed on Doxycycline prophylactically. The wound cultures were positive for Pseudomonas aeruginosa, Proteus mirabilis, and Corynebacterium striatum. These bacteria are not sensitive to the Doxycycline. She has finished the Levaquin to cover the Pseudomonas and Proteus. The Corynebacterium is skin contaminant. Reinforced to her to try and elevate her pannus on a pillow so that some of the swelling may decrease in the area that is most dependent. She has seen Dr. Mcgowan in his office to discuss a panniculectomy. With her hernia, it is recommended that she go to a tertiary facility for further surgical options She was scheduled to have an ultrasound of her abdomen at [facility] and it showed an abdominal hernia. She states she was removed from bariatric surgery program and was referred to the obesity medicine, her appointment is at the end of February. She states that she is not able to get enough protein intake and can not afford the protein supplements, therefore, she may not be a candidate for the bariatric surgery. I stressed the importance of increased protein intake for wound healing. The increased protein intake/supplementation is necessary no matter what treatment plan that she decides to have. She will follow up 2 weeks with me. She may follow up 1-2 times per week for nurse's visits to help with wound care. Instructed to call if she has any questions or concerns.
--- NOTE | 2024-02-27 16:24 | WC ---
Patient called to let us know that as she got out of her car, her belly button started bleeding and it was a large amount that she called the squad. By the time they arrived, the bleeding stopped. They said to follow up with the provider. Spoke to Gale Haddad NP and no new changes other than not to pack the area too deep, maybe that could cause some trauma. Keep area clean and protected. Patient will be notified.
[2024-03-01 12:32] VITALS: BP 142/82; PULSE 63; RESP 18; TEMP 36.7; BMI 72.0
[2024-03-04 13:22] VITALS: BP 135/55; PULSE 70; RESP 20; TEMP 35.7; BMI 72.0
--- NOTE | 2024-03-06 09:48 | WC ---
PHOTO MID ABD 02/26/24
--- NOTE | 2024-03-06 09:49 | WC ---
PHOTO L ABD 02/26/24
== END 2024-03-06 23:59 | disposition home or self-care (01) ==
LOC: WC 13:15
PROVIDERS: PCP Preventive Medicine Occupational Medicine; Referring Provider Physician Assistant; Visit Provider Nurse Practitioner Family
DX: L98.492 Non-pressure chronic ulcer of skin of other sites with fat layer exposed (principal); E66.01 Morbid (severe) obesity due to excess calories; Z68.45 Body mass index [BMI] 70 or greater, adult; R19.8 Other specified symptoms and signs involving the digestive system and abdomen; M17.11 Unilateral primary osteoarthritis, right knee; E03.9 Hypothyroidism, unspecified; G47.30 Sleep apnea, unspecified; J45.909 Unspecified asthma, uncomplicated; R26.2 Difficulty in walking, not elsewhere classified; B37.2 Candidiasis of skin and nail; R73.03 Prediabetes; Z79.890 Hormone replacement therapy; Z79.84 Long term (current) use of oral hypoglycemic drugs; Z79.899 Other long term (current) drug therapy
CPT/HCPCS: 11042; 11045; 99203; 99213; G0463

== ENCOUNTER 2024-04-01 10:15 | Outpatient (RCR) | payer MEDICAID, SELFPAY ==
[2024-03-07 00:22] VITALS: BP 163/76; PULSE 77; RESP 16; TEMP 36.1; O2SAT 98; BMI 72.0
[2024-03-08 11:34] VITALS: BP 124/73; PULSE 74; RESP 18; TEMP 35.6; BMI 72.0
[2024-03-11 10:39] VITALS: BP 100/53; PULSE 84; RESP 20; TEMP 36.5; BMI 72.0
--- NOTE | 2024-03-11 17:33 | PN.PCM_ITS ---
History of Present Illness Date of Service: 03/11/24 Chief Complaint: Ulcer on abdomen and leaky belly button. History of Wound: Patient is a 48-year-old female who presented on her pannus. She states that it was just noticed 1 to 2 weeks ago. She is obese and has a difficult time walking due to knee pain. She is able to transfer to and from her wheelchair. She states she is still able to drive. She states that she was bathing a couple weeks ago and discovered this ulcer. She states that it does have drainage. She has been covering it with a disposable pad to absorb the drainage. She also states that she has issues with drainage from her umbilicus. It will sometimes have a strong odor and also will bleed on occasion. She states she has seen dermatology and a general surgeon about this and they stated there was not much to do for this. Dermatology has put her on Ketoconazole cream for rashes in skin folds, that she has not recently been using. While examining her it was discovered that she also has an ulcer on her right lateral abdomen and her left lateral abdomen in a skin fold. She states she has a hard time bathing herself due to the weight of her pannus. She has a history of hypothyroidism, pre diabetes, polycystic ovary, asthma, sleep apnea, an ulcer on her left lower leg, and right knee arthritis. [facility]ound culture [facility] at [facility] and was positive for Pseudomonas aeruginosa, Proteus mirabilis, and Corynebacterium striatum. She was treated wi Doxycycline before the culture results were back. Will start her on Levaquin. She comes in today for further evaluation of her ulcer. She denies fever, chills, nausea or vomiting. Progress of Wound: She has been coming into the wound center 1-2 times a week for nurse visits to assist with her wound care. The ulcer on the right lateral abdomen in the pannus skin fold reopened. She stopped placing dry dressings over it because she thought it was healed. Lower abdominal/pannus ulcer is pink, stable in size. The ulcer is located in the most dependent portion of her pannus, there is edema present. The ulcer on her left lateral abdomen pannus skin fold is smaller. She has been placing iodoform gauze into her umbilicus stalk to help absorb the drainage that is present. She is scheduled for CT of abdomen, ordered by her PCP. She still has concerns that her umbilicus has drainage. She is also requesting home health to come and help her with her dressing because it is very difficult for her to come into the wound center a couple times per week. Objective Data Objective Data Vital Signs: Vital Signs Temp Pulse Resp BP Pulse Ox O2 Del Method 97.7 F L 84 20 H 100/53 L 98 Room Air 03/11/24 10:39 03/11/24 10:39 03/11/24 10:39 03/11/24 10:39 03/07/24 00:22 03/08/24 11:34 Oxygen Delivery Method Room Air Weight: 433 lb Body Mass Index (BMI) 72.0 Charges/Coding Procedures Integumentary 111xxx-113xx: [id number] Silvia subq tissue 20 sq cm/< Add On Codes: 28943 Silvia subq tissue add-on Debridement Note Debridement Note Wound debrided: Lower abdominal pannus Laterality: Not Applicable Wound Grade/Stage: Stage III Type of Debridement: Excisional debridement Anesthesia Used: 5% Lidocaine Gel Depth: Down to and including healthy tissue and in the subcutaneous layer Percentage of wound debrided: 100 Instrument Used: 7mm curette Tissue Removed: Non viable tissue and slough Severity: Fat Layer Exposed Amount of bleeding with debridement: Mild Bleeding Controlled with: Compression and gauze Patient tolerated procedure: Patient tolerated procedure well Post-Debridement Measurements and Additional Note: Post-Debridement Measurements/Treatment - Nurse 1 - General Ulcer Assessment Start: 03/08/24 11:34 Freq: Status: Active Protocol: BALDEMAR Activity Type Activity Date Activity User E-sign Co-sign Detail Recorded Client Recorded Date Recorded By Document 03/08/24 11:34 KW bgj 03/08/24 11:37 KW Document 03/11/24 10:39 DL [id number] 03/11/24 10:48 DL 03/08/24 03/11/24 11:34 10:39 - Today's Visit Information Type of service Nurse-only Follow-up Visit Visit (Physician/HEALTH UNDERWRITER ) Arrival Mode Wheelchair Ambulatory, Wheelchair Transfer Assistance None Patient Identification Verified (Name & Yes Yes ) Patient Requires Transmission-Based No Precautions Height and Weight Body Mass Index (BMI) 72.0 72.0 BMI Classification Obese Obese Vital Signs Temperature (97.8 F-99.1 F) 96.0 F L 97.7 F L Temperature Source Temporal Temporal Pulse Rate (60-100) 74 84 Pulse Location Monitor Monitor Respiratory Rate (12-18) 18 20 H Respiratory rate source Observation Oxygen Delivery Method Room Air Blood Pressure (90/60-120/80) 124/73 H 100/53 L Blood Pressure Mean (mm Hg) 90 68 Source Monitor Monitor Position Sitting Blood Pressure Location Left Forearm History Since Last Visit- (Skip if this is Patient's initial visit) Have you changed medications since your No No last visit? Any new allergies or adverse reactions No No Had a fall/change in ADL's that may No No increase risk of falls Signs or symptoms of abuse and/or No No neglect since last visit Have you been in the hospital since your No No last visit? Has dressing in place as prescribed Yes Yes Has compression in place as prescribed N/A N/A Has offloadiing in place as prescribed N/A N/A Experienced any changes in pain level or No No management Left Footwear Regular Shoe Right Footwear Regular Shoe Pain Scale: 0-10 Numeric Is Patient Pain Free? Yes Yes WC - Nurse 1 - General Ulcer Measurement Start: 03/08/24 11:34 Freq: Status: Active Protocol: Activity Type Activity Date Activity User E-sign Co-sign Detail Recorded Client Recorded Date Recorded By Document 03/11/24 10:39 DL [email or web address] 03/11/24 10:48 DL 03/11/24 10:39 Wound Center Nurse 1 4-right side abd -Current Size (cm) - Length 0.6 -Current Size (cm) - Width 0.5 -Current Size (cm) - Depth 0.1 -Total Square Cm 0.30 -Exudate Amt Medium -Exudate Type Serosanguineous -Wound Margin Distinct, Outline Attached -Granulation Amt Small (1-33%) -Granulation Quality Pale,[place] -Necrosis Amt Large (67-100%) -Necrotic Tissue Type Adherent Slough -Structure Exposed N/A -Texture (Sera-wound Skin Appearance) Scarring -Moisture (Sera-wound Skin Appearance) No Abnormality -Color (Sera-wound Skin Appearance) No Abnormality -Temperature (Sera-wound Skin No Abnormality Appearance) (Pt Warm) -Ulcer Cleansing Soap and Water -Foul Odor after Cleansing No -Anesthetic Used 5% Lidocaine Gel 3-left side abd -Current Size (cm) - Length 0.1 -Current Size (cm) - Width 0.1 -Current Size (cm) - Depth 0.1 -Total Square Cm 0.01 -Exudate Amt None Present -Wound Margin Flat & Intact -Granulation Amt Small (1-33%) -Granulation Quality [place] -Necrosis Amt None Present (0 %) -Structure Exposed N/A -Texture (Sera-wound Skin Appearance) Scarring -Moisture (Sera-wound Skin Appearance) No Abnormality -Color (Sera-wound Skin Appearance) No Abnormality -Temperature (Sera-wound Skin No Abnormality Appearance) (Pt Warm) -Tenderness on Palpation (Sera-wound No Skin Appearance) -Ulcer Cleansing Soap and Water -Foul Odor after Cleansing No -Anesthetic Used 5% Lidocaine Gel #2 ABD -Current Size (cm) - Length 4.5 -Current Size (cm) - Width 5 -Current Size (cm) - Depth 0.2 -Total Square Cm 22.5 -Exudate Amt Medium -Exudate Type Serosanguineous -Wound Margin Distinct, Outline Attached -Granulation Amt Medium (34-66%) -Granulation Quality Red -Necrosis Amt Medium (34-66%) -Necrotic Tissue Type Adherent Slough -Structure Exposed N/A -Texture (Sera-wound Skin Appearance) Scarring -Moisture (Sera-wound Skin Appearance) Assessed -Color (Sera-wound Skin Appearance) No Abnormality -Temperature (Sera-wound Skin No Abnormality Appearance) (Pt Warm) -Ulcer Cleansing Soap and Water -Foul Odor after Cleansing No -Anesthetic Used 5% Lidocaine Gel WC - Nurse 2 - General Ulcer CM Notes Start: 03/08/24 11:34 Freq: Status: Active Protocol: Activity Type Activity Date Activity User E-sign Co-sign Detail Recorded Client Recorded Date Recorded By Document 03/11/24 11:24 JF 0000 03/11/24 11:32 JF 03/11/24 11:24 Wound Center Nurse 2 4-right side abd -Time 11:28 -Correct Patient Yes -Correct Side, Site, Position Yes -Correct Procedure Yes -Procedure Performed Yes -Type of Procedure Debridement -Clinical Debridement Subcutaneous -Tissue Removed Subcutaneous -Post Debridement (cm) - Length 1.0 -Post Debridement (cm) - Width 1.0 -Post Debridement (cm) - Depth 0.1 -Total Square (Post) (cm) 1.00 -Area of Debridement (cm) - Length 1.0 -Area of Debridement (cm) - Width 1.0 -Total Square (Area) (cm) 1.00 -Tunneling No -Undermining/Tunneling No -Circular Undermining No -Wound/Ulcer Outcome Not Healed -Ulcer Cleansing Rinsed/ Irrigated with Saline -Foul Odor after Cleansing No -Bioengineered Tissue No -Bleeding Controlled with Pressure -Treatment Response Procedure Tolerated Well -Offloading No -Debridement - Subq, 1st 20sq cm No 3-left side abd -Time 11:30 -Correct Patient Yes -Correct Side, Site, Position Yes -Correct Procedure Yes -Procedure Performed Yes -Type of Procedure Debridement -Clinical Debridement Subcutaneous -Tissue Removed Subcutaneous -Post Debridement (cm) - Length 0.5 -Post Debridement (cm) - Width 1.0 -Post Debridement (cm) - Depth 0.1 -Total Square (Post) (cm) 0.50 -Area of Debridement (cm) - Length 0.5 -Area of Debridement (cm) - Width 1.0 -Total Square (Area) (cm) 0.50 -Tunneling No -Undermining/Tunneling No -Circular Undermining No -Wound/Ulcer Outcome Healed- Surgical Closure -Foul Odor after Cleansing No -Bioengineered Tissue No -Bleeding Controlled with Pressure -Treatment Response Procedure Tolerated Well -Offloading No -Debridement - Subq, 1st 20sq cm No #2 ABD -Time 11:31 -Correct Patient Yes -Correct Side, Site, Position Yes -Correct Procedure Yes -Procedure Performed Yes -Type of Procedure Debridement -Clinical Debridement Subcutaneous -Tissue Removed Subcutaneous -Post Debridement (cm) - Length 4 -Post Debridement (cm) - Width 6 -Post Debridement (cm) - Depth 0.1 -Total Square (Post) (cm) 24 -Area of Debridement (cm) - Length 4 -Area of Debridement (cm) - Width 6 -Total Square (Area) (cm) 24 -Tunneling No -Undermining/Tunneling No -Circular Undermining No -Wound/Ulcer Outcome Not Healed -Ulcer Cleansing Rinsed/ Irrigated with Saline -Foul Odor after Cleansing No -Bioengineered Tissue No -Bleeding Controlled with Pressure -Treatment Response Procedure Tolerated Well -Offloading No -Debridement - Subq, 1st 20sq cm Yes -Debridement, SubQ, ea addt'l 20sq cm 1 or part thereof Pain Scale: 0-10 Numeric Is Patient Pain Free? Yes WC - Nurse 3 - General Ulcer D/C NN Start: 03/08/24 11:34 Freq: Status: Active Protocol: Activity Type Activity Date Activity User E-sign Co-sign Detail Recorded Client Recorded Date Recorded By Document 03/08/24 11:34 KW bgj 03/08/24 11:37 KW 03/08/24 11:34 Vital Signs Temperature (97.8 F-99.1 F) 96.0 F L Temperature Source Temporal Pulse Rate (60-100) 74 Pulse Location Monitor Respiratory Rate (12-18) 18 Respiratory rate source Observation Oxygen Delivery Method Room Air Blood Pressure (90/60-120/80) 124/73 H Blood Pressure Mean (mm Hg) 90 Source Monitor Position Sitting Blood Pressure Location Left Forearm Pain Scale: 0-10 Numeric Is Patient Pain Free? Yes Wound Care Center Nurse 3 3-left side abd -Primary Dressing Applied Silvercel -Primary Dressing Covered/Secured with Dry Gauze, Secured with Tape -Silvercel 1 #2 ABD -Other Dressing SILVERCEL -Primary Dressing Covered/Secured with Dry Gauze, Secured with Tape WC - Visit Discharge Discharge Condition Stable Ambulatory Status Wheelchair Transportation Private Auto Medication Reconcilliation completed & No provided to patient/care provider Clinical Summary of Care Provided Yes Additional Wound Wound debrided: #4 left lateral abd ulcer in skin fold, #3 right lateral abd skin fold Wound Grade/Stage: Stage III Type of Debridement: Excisional debridement Anesthesia Used: 5% Lidocaine Gel Depth: Down to and including healthy tissue and in the subcutaneous layer Percentage of wound debrided: 100 Instrument Used: 3mm curette Tissue Removed: Non viable tissue and slough Severity: Fat Layer Exposed Amount of bleeding with debridement: Mild Bleeding Controlled with: Pressure and Compression and gauze Patient tolerated procedure: Patient tolerated procedure well Assessment/Plan Assessment/Plan (1) Skin ulcer of abdominal wall with fat layer exposed: CODE(S): L98.492 - Non-pressure chronic ulcer of skin of other sites with fat layer exposed (2) Obesity: CODE(S): E66.9 - Obesity, unspecified QUALIFIERS: Obesity type: due to excess calories Obesity classification: adult class 3 (BMI >= 40) Serious obesity comorbidity presence: with serious comorbidity Body mass index: BMI 70 or greater Qualified Code(s): E66.01 - Morbid (severe) obesity due to excess calories; Z68.45 - Body mass index [BMI] 70 or greater, adult (3) Umbilicus discharge: CODE(S): R19.8 - Other specified symptoms and signs involving the digestive system and abdomen (4) Yeast infection of the skin: CODE(S): B37.2 - Candidiasis of skin and nail PLAN: Plan Patient evaluated at the wound healing center today. Wound care for the ulcers on her left and right lateral abdomen and the lower abdomen/pannus area place Silvercel/silver alginate daily covered with gauze/ABD/[place] SAP daily to these ulcers after washing with soap and water. For her umbilicus, will continue placing a strip of 1/4 Iodoform gauze to help absorb the moisture and prevent maceration and skin rubbing against itself. She is coming into the wound center for nurses visit 1-2 times per week to have assistance with her dressings. She is having difficulty coming into the wound center couple times a week to have her dressing changes. She is also having difficulty getting anybody to help her with these dressing changes when she is at home. She would like to have home health come in and help her couple times a week with these dressing changes. We have attempted to find a home health agency to come do nurse visits. Wound culture were collected [facility] and she was placed on Doxycycline prophylactically. The wound cultures were positive for Pseudomonas aeruginosa, Proteus mirabilis, and Corynebacterium striatum. These bacteria are not sensitive to the Doxycycline. She has finished the Levaquin to cover the Pseudomonas and Proteus. The Corynebacterium is skin contaminant. Reinforced to her to try and elevate her pannus on a pillow so that some of the swelling may decrease in the area that is most dependent. She was scheduled to have an ultrasound of her abdomen at [facility] and it showed an abdominal hernia. She states she was removed from bariatric surgery program and was referred to the obesity medicine which she saw last week. They have put her on Trulicity. She has not started it yet. She states that she tried taking this in the past and it made her sick. She states that she is not able to get enough protein intake and can not afford the protein supplements, therefore, she may not be a candidate for the bariatric surgery. I stressed the importance of increased protein intake for wound healing. The increased protein intake/supplementation is necessary no matter what treatment plan that she decides to have. She will follow up 1 week with me. She may follow up 1-2 times per week for nurse's visits to help with wound care until we are able to find a home health agency to help her couple times a week and the home with her dressing changes. Instructed to call if she has any questions or concerns.
[2024-03-18 10:35] VITALS: BP 158/58; PULSE 61; RESP 18; TEMP 35.6; BMI 72.0
--- NOTE | 2024-03-18 13:17 | PCM.WC.PN ---
History of Present Illness Date of Service: 03/18/24 Chief Complaint: Ulcer on abdomen and leaky belly button. History of Wound: Patient is a 48-year-old female who presented on her pannus. She states that it was just noticed 1 to 2 weeks ago. She is obese and has a difficult time walking due to knee pain. She is able to transfer to and from her wheelchair. She states she is still able to drive. She states that she was bathing a couple weeks ago and discovered this ulcer. She states that it does have drainage. She has been covering it with a disposable pad to absorb the drainage. She also states that she has issues with drainage from her umbilicus. It will sometimes have a strong odor and also will bleed on occasion. She states she has seen dermatology and a general surgeon about this and they stated there was not much to do for this. Dermatology has put her on Ketoconazole cream for rashes in skin folds, that she has not recently been using. While examining her it was discovered that she also has an ulcer on her right lateral abdomen and her left lateral abdomen in a skin fold. She states she has a hard time bathing herself due to the weight of her pannus. She has a history of hypothyroidism, pre diabetes, polycystic ovary, asthma, sleep apnea, an ulcer on her left lower leg, and right knee arthritis. Wound culture obtained 09/12/23 at [facility] and was positive for Pseudomonas aeruginosa, Proteus mirabilis, and Corynebacterium striatum. She was treated with Doxycycline before the culture results were back. Will start her on Levaquin. She comes in today for further evaluation of her ulcer. She denies fever, chills, nausea or vomiting. Progress of Wound: The ulcer on the left lateral abdomen in the pannus skin fold is healed today. She has two new ulcers on her bilateral ischial area from sitting/pressure. 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 The bilateral ischial ulcers are superficial, with dry scabbing present. Lower abdominal/pannus ulcer is pink, slightly smaller in size. The ulcer is located in the most dependent portion of her pannus, there is edema present. The ulcer on her right lateral abdomen pannus skin fold is stable. She has been placing iodoform gauze into her umbilicus stalk to help absorb the drainage that is present. She is scheduled for CT of abdomen, ordered by her PCP. She still has concerns that her umbilicus has drainage. She still has not heard anything from homehealth to assist her with her dressing changes. Objective Data Objective Data Vital Signs: Vital Signs Temp Pulse Resp BP Pulse Ox O2 Del Method 96.0 F L 61 18 158/58 H 98 Room Air 03/18/24 10:35 03/18/24 10:35 03/18/24 10:35 03/18/24 10:35 03/07/24 00:22 03/18/24 10:35 Oxygen Delivery Method Room Air Weight: 433 lb Body Mass Index (BMI) 72.0 Charges/Coding Procedures Integumentary 111xxx-113xx: [id number] Silvia subq tissue 20 sq cm/< Debridement Note Debridement Note Wound debrided: Lower abdominal pannus Laterality: Not Applicable Wound Grade/Stage: Stage III Type of Debridement: Excisional debridement Anesthesia Used: 5% Lidocaine Gel Depth: Down to and including healthy tissue and in the subcutaneous layer Percentage of wound debrided: 100 Instrument Used: 7mm curette Tissue Removed: Non viable tissue and slough Severity: Fat Layer Exposed Amount of bleeding with debridement: Mild Bleeding Controlled with: Compression and gauze Patient tolerated procedure: Patient tolerated procedure well Post-Debridement Measurements and Additional Note: Post-Debridement Measurements/Treatment - Nurse 1 - General Ulcer Assessment Start: 03/08/24 11:34 Freq: Status: Active Protocol: [email or web address] Activity Type Activity Date Activity User E-sign Co-sign Detail Recorded Client Recorded Date Recorded By Document 03/08/24 11:34 KW bg 03/08/24 11:37 KW Document 03/11/24 10:39 DL [email or web address] 03/11/24 10:48 DL Document 03/18/24 10:35 KW ][ 03/18/24 10:46 KW 03/08/24 03/11/24 03/18/24 11:34 10:39 10:35 - Today's Visit Information Type of service Nurse-only Follow-up Visit Follow-up Visit Visit (Physician/NUTRITION HELPER (Physician/NUTRITION HELPER ) ) Arrival Mode Wheelchair Ambulatory, Wheelchair Wheelchair Transfer Assistance None Patient Identification Verified (Name & Yes Yes Yes ) Patient Requires Transmission-Based No Precautions Height and Weight Body Mass Index (BMI) 72.0 72.0 72.0 BMI Classification Obese Obese Obese Vital Signs Temperature (97.8 F-99.1 F) 96.0 F L 97.7 F L 96.0 F L Temperature Source Temporal Temporal Oral Pulse Rate (60-100) 74 84 61 Pulse Location Monitor Monitor Monitor Respiratory Rate (12-18) 18 20 H 18 Respiratory rate source Observation Observation Oxygen Delivery Method Room Air Room Air Blood Pressure (90/60-120/80) 124/73 H 100/53 L 158/58 H Blood Pressure Mean (mm Hg) 90 68 91 Source Monitor Monitor Monitor Position Sitting Semi-Fowlers Blood Pressure Location Left Forearm Left Arm History Since Last Visit- (Skip if this is Patient's initial visit) Have you changed medications since your No No No last visit? Any new allergies or adverse reactions No No No Had a fall/change in ADL's that may No No No increase risk of falls Signs or symptoms of abuse and/or No No No neglect since last visit Have you been in the hospital since your No No No last visit? Has dressing in place as prescribed Yes Yes Yes Has compression in place as prescribed N/A N/A N/A Has offloadiing in place as prescribed N/A N/A N/A Experienced any changes in pain level or No No No management Left Footwear Regular Shoe Regular Shoe Right Footwear Regular Shoe Regular Shoe Pain Scale: 0-10 Numeric Is Patient Pain Free? Yes Yes Yes WC - Nurse 1 - General Ulcer Measurement Start: 03/08/24 11:34 Freq: Status: Active Protocol: Activity Type Activity Date Activity User E-sign Co-sign Detail Recorded Client Recorded Date Recorded By Document 03/11/24 10:39 DL [email or web address] 03/11/24 10:48 DL Document 03/18/24 10:35 KW ][ 03/18/24 10:46 KW 03/11/24 03/18/24 10:39 10:35 Wound Center Nurse 1 3-left side abd -Current Size (cm) - Length 0.1 2 -Current Size (cm) - Width 0.1 0.7 -Current Size (cm) - Depth 0.1 0.1 -Total Square Cm 0.01 1.4 -Date of Last Picture (Recall this 03/18/24 field) -Exudate Amt None Present Small -Exudate Type Serosanguineous -Wound Margin Flat & Intact Distinct, Outline Attached -Granulation Amt Small (1-33%) Large (67-100%) -Granulation Quality [place] Red -Necrosis Amt None Present (0 %) -Structure Exposed N/A -Texture (Sera-wound Skin Appearance) Scarring Assessed -Moisture (Sera-wound Skin Appearance) No Abnormality Assessed -Color (Sera-wound Skin Appearance) No Abnormality Assessed -Temperature (Sera-wound Skin No Abnormality No Abnormality Appearance) (Pt Warm) (Pt Warm) -Tenderness on Palpation (Sera-wound No No Skin Appearance) -Ulcer Cleansing Soap and Water Soap and Water -Foul Odor after Cleansing No No -Anesthetic Used 5% Lidocaine 5% Lidocaine Gel Gel 7 RT BUTTOCK -Current Size (cm) - Length 3.5 -Current Size (cm) - Width 4.7 -Current Size (cm) - Depth 0.1 -Total Square Cm 16.45 -Date of Last Picture (Recall this 03/18/24 field) -Exudate Amt Small -Exudate Type Serosanguineous -Wound Margin Distinct, Outline Attached -Granulation Amt Large (67-100%) -Granulation Quality Red -Texture (Sera-wound Skin Appearance) Assessed -Moisture (Sera-wound Skin Appearance) Assessed -Color (Sera-wound Skin Appearance) Assessed -Temperature (Sera-wound Skin No Abnormality Appearance) (Pt Warm) -Tenderness on Palpation (Sera-wound No Skin Appearance) -Ulcer Cleansing Soap and Water -Foul Odor after Cleansing No -Anesthetic Used 5% Lidocaine Gel #6 LT ISCHIAL -Current Size (cm) - Length 0.7 -Current Size (cm) - Width 0.5 -Current Size (cm) - Depth 0.1 -Total Square Cm 0.35 -Date of Last Picture (Recall this 03/18/24 field) -Exudate Amt Small -Exudate Type Serosanguineous -Wound Margin Distinct, Outline Attached -Granulation Amt Large (67-100%) -Granulation Quality Red -Texture (Sera-wound Skin Appearance) Assessed -Moisture (Sera-wound Skin Appearance) Assessed -Color (Sera-wound Skin Appearance) Assessed -Temperature (Sera-wound Skin No Abnormality Appearance) (Pt Warm) -Tenderness on Palpation (Sera-wound No Skin Appearance) -Ulcer Cleansing Soap and Water -Foul Odor after Cleansing No -Anesthetic Used 5% Lidocaine Gel 4-right side abd -Current Size (cm) - Length 0.6 0.1 -Current Size (cm) - Width 0.5 0.1 -Current Size (cm) - Depth 0.1 0.1 -Total Square Cm 0.30 0.01 -Date of Last Picture (Recall this 03/18/24 field) -Exudate Amt Medium -Exudate Type Serosanguineous -Wound Margin Distinct, Outline Attached -Granulation Amt Small (1-33%) -Granulation Quality Pale,[place] -Necrosis Amt Large (67-100%) -Necrotic Tissue Type Adherent Slough -Structure Exposed N/A -Texture (Sera-wound Skin Appearance) Scarring -Moisture (Sera-wound Skin Appearance) No Abnormality -Color (Sera-wound Skin Appearance) No Abnormality -Temperature (Sera-wound Skin No Abnormality Appearance) (Pt Warm) -Ulcer Cleansing Soap and Water -Foul Odor after Cleansing No -Anesthetic Used 5% Lidocaine Gel -Wound Comment(s) POSSIBLY HEALED #2 ABD -Current Size (cm) - Length 4.5 3.5 -Current Size (cm) - Width 5 4.7 -Current Size (cm) - Depth 0.2 0.1 -Total Square Cm 22.5 16.45 -Date of Last Picture (Recall this 03/18/24 field) -Exudate Amt Medium Medium -Exudate Type Serosanguineous Serosanguineous -Wound Margin Distinct, Distinct, Outline Outline Attached Attached -Granulation Amt Medium (34-66%) Large (67-100%) -Granulation Quality Red Red -Necrosis Amt Medium (34-66%) -Necrotic Tissue Type Adherent Slough -Structure Exposed N/A -Texture (Sera-wound Skin Appearance) Scarring Assessed -Moisture (Sera-wound Skin Appearance) Assessed Assessed -Color (Sera-wound Skin Appearance) No Abnormality Assessed -Temperature (Sera-wound Skin No Abnormality No Abnormality Appearance) (Pt Warm) (Pt Warm) -Tenderness on Palpation (Sera-wound No Skin Appearance) -Ulcer Cleansing Soap and Water Soap and Water -Foul Odor after Cleansing No No -Anesthetic Used 5% Lidocaine 5% Lidocaine Gel Gel WC - Nurse 2 - General Ulcer CM Notes Start: 03/08/24 11:34 Freq: Status: Active Protocol: Activity Type Activity Date Activity User E-sign Co-sign Detail Recorded Client Recorded Date Recorded By Document 03/11/24 11:24 JF 0000 03/11/24 11:32 JF Document 03/18/24 11:00 JF 0000 03/18/24 11:06 JF 03/11/24 03/18/24 11:24 11:00 Wound Center Nurse 2 3-left side abd -Time 11:30 11:03 -Correct Patient Yes No -Correct Side, Site, Position Yes No -Correct Procedure Yes No -Procedure Performed Yes No -Type of Procedure Debridement -Clinical Debridement Subcutaneous -Tissue Removed Subcutaneous -Post Debridement (cm) - Length 0.5 0 -Post Debridement (cm) - Width 1.0 0 -Post Debridement (cm) - Depth 0.1 0 -Total Square (Post) (cm) 0.50 0 -Area of Debridement (cm) - Length 0.5 0 -Area of Debridement (cm) - Width 1.0 0 -Total Square (Area) (cm) 0.50 0 -Tunneling No No -Undermining/Tunneling No No -Circular Undermining No No -Wound/Ulcer Outcome Healed- Healed- Surgical Epithelialized Closure -Ulcer Cleansing Rinsed/ Irrigated with Saline -Foul Odor after Cleansing No No -Bioengineered Tissue No No -Bleeding Controlled with Pressure Pressure -Treatment Response Procedure Procedure Tolerated Well Tolerated Well -Offloading No No -Debridement - Subq, 1st 20sq cm No 7 RT BUTTOCK -Correct Patient No -Correct Side, Site, Position No -Correct Procedure No -Procedure Performed No -Post Debridement (cm) - Length 0.8 -Post Debridement (cm) - Width 0.8 -Post Debridement (cm) - Depth 0.1 -Total Square (Post) (cm) 0.64 -Area of Debridement (cm) - Length 0.8 -Area of Debridement (cm) - Width 0.8 -Total Square (Area) (cm) 0.64 -Wound/Ulcer Outcome Not Healed #6 LT ISCHIAL -Correct Patient No -Correct Side, Site, Position No -Correct Procedure No -Procedure Performed No -Post Debridement (cm) - Length 1.5 -Post Debridement (cm) - Width 1.0 -Post Debridement (cm) - Depth 0.1 -Total Square (Post) (cm) 1.50 -Area of Debridement (cm) - Length 1.5 -Area of Debridement (cm) - Width 1.0 -Total Square (Area) (cm) 1.50 -Wound/Ulcer Outcome Not Healed 4-right side abd -Time 11:28 11:02 -Correct Patient Yes Yes -Correct Side, Site, Position Yes Yes -Correct Procedure Yes Yes -Procedure Performed Yes Yes -Type of Procedure Debridement Debridement -Clinical Debridement Subcutaneous Subcutaneous -Tissue Removed Subcutaneous Subcutaneous -Post Debridement (cm) - Length 1.0 1.2 -Post Debridement (cm) - Width 1.0 1.4 -Post Debridement (cm) - Depth 0.1 0.1 -Total Square (Post) (cm) 1.00 1.68 -Area of Debridement (cm) - Length 1.0 1.2 -Area of Debridement (cm) - Width 1.0 1.4 -Total Square (Area) (cm) 1.00 1.68 -Tunneling No No -Undermining/Tunneling No No -Circular Undermining No No -Wound/Ulcer Outcome Not Healed Not Healed -Ulcer Cleansing Rinsed/ Rinsed/ Irrigated with Irrigated with Saline Saline -Foul Odor after Cleansing No No -Bioengineered Tissue No No -Bleeding Controlled with Pressure Pressure -Treatment Response Procedure Procedure Tolerated Well Tolerated Well -Offloading No No -Debridement - Subq, 1st 20sq cm No No #2 ABD -Time 11:31 11:03 -Correct Patient Yes Yes -Correct Side, Site, Position Yes Yes -Correct Procedure Yes Yes -Procedure Performed Yes Yes -Type of Procedure Debridement Debridement -Clinical Debridement Subcutaneous Subcutaneous -Tissue Removed Subcutaneous Subcutaneous -Post Debridement (cm) - Length 4 3.5 -Post Debridement (cm) - Width 6 5 -Post Debridement (cm) - Depth 0.1 0.1 -Total Square (Post) (cm) 24 17.5 -Area of Debridement (cm) - Length 4 3.5 -Area of Debridement (cm) - Width 6 5 -Total Square (Area) (cm) 24 17.5 -Tunneling No No -Undermining/Tunneling No No -Circular Undermining No No -Wound/Ulcer Outcome Not Healed Not Healed -Ulcer Cleansing Rinsed/ Rinsed/ Irrigated with Irrigated with Saline Saline -Foul Odor after Cleansing No No -Bioengineered Tissue No No -Bleeding Controlled with Pressure Pressure -Treatment Response Procedure Procedure Tolerated Well Tolerated Well -Offloading No No -Debridement - Subq, 1st 20sq cm Yes Yes -Debridement, SubQ, ea addt'l 20sq cm 1 or part thereof Pain Scale: 0-10 Numeric Is Patient Pain Free? Yes Yes - Nurse 3 - General Ulcer D/C NN Start: 03/08/24 11:34 Freq: Status: Active Protocol: Activity Type Activity Date Activity User E-sign Co-sign Detail Recorded Client Recorded Date Recorded By Document 03/08/24 11:34 KW bgj 03/08/24 11:37 KW Document 03/18/24 11:11 KW ][ 03/18/24 11:13 KW 03/08/24 03/18/24 11:34 11:11 Vital Signs Temperature (97.8 F-99.1 F) 96.0 F L Temperature Source Temporal Pulse Rate (60-100) 74 Pulse Location Monitor Respiratory Rate (12-18) 18 Respiratory rate source Observation Oxygen Delivery Method Room Air Blood Pressure (90/60-120/80) 124/73 H Blood Pressure Mean (mm Hg) 90 Source Monitor Position Sitting Blood Pressure Location Left Forearm Pain Scale: 0-10 Numeric Is Patient Pain Free? Yes Yes Wound Care Center Nurse 3 3-left side abd -Primary Dressing Applied Silvercel -Primary Dressing Covered/Secured with Dry Gauze, Secured with Tape -Silvercel 1 7 RT BUTTOCK -Other Dressing SILVER -Primary Dressing Covered/Secured with Dry Gauze, Secured with Tape #6 LT BUTTOCK -Other Dressing SILVER -Primary Dressing Covered/Secured with Dry Gauze, Secured with Tape 4-right side abd -Other Dressing SILVER -Primary Dressing Covered/Secured with Dry Gauze, Secured with Tape #2 ABD -Other Dressing SILVERCEL SILVER -Primary Dressing Covered/Secured with Dry Gauze, Dry Gauze, Secured with Secured with Tape Tape WC - Visit Discharge Discharge Condition Stable Stable Ambulatory Status Wheelchair Wheelchair Transportation Private Auto Private Auto Medication Reconciliation completed & No No provided to patient/care provider Clinical Summary of Care Provided Yes Yes Additional Wound Wound debrided: #3 right lateral abd skin fold Wound Grade/Stage: Stage III Type of Debridement: Excisional debridement Anesthesia Used: 5% Lidocaine Gel Depth: Down to and including healthy tissue and in the subcutaneous layer Percentage of wound debrided: 100 Instrument Used: 3mm curette Tissue Removed: Non viable tissue and slough Severity: Fat Layer Exposed Amount of bleeding with debridement: Mild Bleeding Controlled with: Pressure and Compression and gauze Patient tolerated procedure: Patient tolerated procedure well Assessment/Plan Assessment/Plan (1) Skin ulcer of abdominal wall with fat layer exposed: CODE(S): L98.492 - Non-pressure chronic ulcer of skin of other sites with fat layer exposed (2) Obesity: CODE(S): E66.9 - Obesity, unspecified QUALIFIERS: Obesity type: due to excess calories Obesity classification: adult class 3 (BMI >= 40) Serious obesity comorbidity presence: with serious comorbidity Body mass index: BMI 70 or greater Qualified Code(s): E66.01 - Morbid (severe) obesity due to excess calories; Z68.45 - Body mass index [BMI] 70 or greater, adult (3) Umbilicus discharge: CODE(S): R19.8 - Other specified symptoms and signs involving the digestive system and abdomen (4) Yeast infection of the skin: CODE(S): B37.2 - Candidiasis of skin and nail (5) Decubitus ulcer of left perineal ischial region, stage 2: CODE(S): L89.322 - Pressure ulcer of left buttock, stage 2 (6) Decubitus ulcer of right perineal ischial region, stage 2: CODE(S): L89.312 - Pressure ulcer of right buttock, stage 2 PLAN: Plan Patient evaluated at the wound healing center today. Wound care for the ulcers on right lateral abdomen and the lower abdomen/pannus area place Silvercel/silver alginate daily covered with gauze/ABD/[place] SAP daily to these ulcers after washing with soap and water. Place barrier cream on the bilateral ischial ulcers twice daily and as needed. She may use Calmaceptine cream, Pinxav, or zinc oxide. Stressed off loading as much as possible. For her umbilicus, will continue placing a strip of 1/4 Iodoform gauze to help absorb the moisture and prevent maceration and skin rubbing against itself. She is coming into the wound center for nurses visit 1-2 times per week to have assistance with her dressings. She is having difficulty coming into the wound center couple times a week to have her dressing changes. She is also having difficulty getting anybody to help her with these dressing changes when she is at home. She would like to have home health come in and help her couple times a week with these dressing changes. We have attempted to find a home health agency to come do nurse visits. Wound culture were collected [facility] and she was placed on Doxycycline prophylactically. The wound cultures were positive for Pseudomonas aeruginosa, Proteus mirabilis, and Corynebacterium striatum. These bacteria are not sensitive to the Doxycycline. She has finished the Levaquin to cover the Pseudomonas and Proteus. The Corynebacterium is skin contaminant. Reinforced to her to try and elevate her pannus on a pillow so that some of the swelling may decrease in the area that is most dependent. She was scheduled to have an ultrasound of her abdomen at [facility] and it showed an abdominal hernia. She states she was removed from bariatric surgery program and was referred to the obesity medicine which she saw last week. They have put her on Trulicity. She has not started it yet. She states that she tried taking this in the past and it made her sick. She states that she is not able to get enough protein intake and can not afford the protein supplements, therefore, she may not be a candidate for the bariatric surgery. I stressed the importance of increased protein intake for wound healing. The increased protein intake/supplementation is necessary no matter what treatment plan that she decides to have. She will follow up 2 weeks. She may follow up 1-2 times per week for nurse's visits to help with wound care until we are able to find a home health agency to help her couple times a week and the home with her dressing changes. Instructed to call if she has any questions or concerns.
--- NOTE | 2024-03-28 11:22 | WC ---
PHOTO 03/18/24 LEFT SIDE ABD
--- NOTE | 2024-03-28 11:23 | WC ---
PHOTO 03/18/24 ABDOMEN
--- NOTE | 2024-03-28 11:23 | WC ---
PHOTO 03/18/24 RIGHT SIDE ABDOMEN
--- NOTE | 2024-03-28 11:24 | WC ---
PHOTO 03/18/24 LEFT BUTTOCKS
[2024-04-01 10:13] VITALS: BP 149/81; PULSE 75; RESP 16; TEMP 35.5; BMI 72.0
--- NOTE | 2024-04-01 11:13 | PN.PCM_ITS ---
History of Present Illness Date of Service: 04/01/24 Chief Complaint: Ulcer on abdomen and leaky belly button. History of Wound: Patient is a 48-year-old female who presented on her pannus. She states that it was just noticed 1 to 2 weeks ago. She is obese and has a difficult time walking due to knee pain. She is able to transfer to and from her wheelchair. She states she is still able to drive. She states that she was bathing a couple weeks ago and discovered this ulcer. She states that it does have drainage. She has been covering it with a disposable pad to absorb the drainage. She also states that she has issues with drainage from her umbilicus. It will sometimes have a strong odor and also will bleed on occasion. She states she has seen dermatology and a general surgeon about this and they stated there was not much to do for this. Dermatology has put her on Ketoconazole cream for rashes in skin folds, that she has not recently been using. While examining her it was discovered that she also has an ulcer on her right lateral abdomen and her left lateral abdomen in a skin fold. She states she has a hard time bathing herself due to the weight of her pannus. She has a history of hypothyroidism, pre diabetes, polycystic ovary, asthma, sleep apnea, an ulcer on her left lower leg, and right knee arthritis. [facility] culture [facility]/23 [facility] and was positive for Pseudomonas aeruginosa, Proteus mirabilis, and Corynebacterium striatum. She was treated wi Doxycycline before the culture results were back. Will start her on Levaquin. She comes in today for further evaluation of her ulcer. She denies fever, chills, nausea or vomiting. Progress of Wound: The ulcer on the left lateral abdomen in the pannus skin fold remains healed today. Lower abdominal/pannus ulcer is pink and smaller in size. The ulcer is l ocated in the most dependent portion of her pannus, there is edema present. The ulcer on her right lateral abdomen pannus skin fold is slightly smaller. Right ischial ulcer is healed today. Left ischial ulcer is slightly smaller, it is very superficial. She has been using Pinxav on the ischial ulcers. She has been placing iodoform gauze into her umbilicus stalk to help absorb the drainage that is present. She had CT of abdomen and Bill on 03/25/24. She brought in a copy of the results from her mychart. She was not able to do IV contrast due to the elevation in her creatinine, so the study is limited. She still has concerns that her umbilicus has drainage. She now has home health assisting her with her dressing changes 2-3 times per week, which I believe has really helped with the decrease in her ulcers sizes. Objective Data Objective Data Vital Signs: Vital Signs Temp Pulse Resp BP Pulse Ox O2 Del Method 96 F L 75 16 149/81 H 98 Room Air 04/01/24 10:13 04/01/24 10:13 04/01/24 10:13 04/01/24 10:13 03/07/24 00:22 04/01/24 10:13 Oxygen Delivery Method Room Air Weight: 433 lb Body Mass Index (BMI) 72.0 Charges/Coding Procedures Integumentary [id number]: [id number] Silvia subq tissue 20 sq cm/< Debridement Note Debridement Note Wound debrided: Lower abdominal pannus Laterality: Not Applicable Wound Grade/Stage: Stage III Type of Debridement: Excisional debridement Anesthesia Used: 5% Lidocaine Gel Depth: Down to and including healthy tissue and in the subcutaneous layer Percentage of wound debrided: 100 Instrument Used: 7mm curette Tissue Removed: Non viable tissue and slough Severity: Fat Layer Exposed Amount of bleeding with debridement: Mild Bleeding Controlled with: Compression and gauze Patient tolerated procedure: Patient tolerated procedure well Post-Debridement Measurements and Additional Note: Post-Debridement Measurements/Treatment - Nurse 1 - General Ulcer Assessment Start: 03/08/24 11:34 Freq: Status: Active Protocol: BALDEMAR Activity Type Activity Date Activity User E-sign Co-sign Detail Recorded Client Recorded Date Recorded By Document 03/08/24 11:34 KW bgj 03/08/24 11:37 KW Document 03/11/24 10:39 DL [id number] 03/11/24 10:48 DL Document 03/18/24 10:35 KW ][ 03/18/24 10:46 KW Document 04/01/24 10:13 [facility] [id number] 04/01/24 10:20 BMF 03/08/24 03/11/24 03/18/24 11:34 10:39 10:35 - Today's Visit Information Type of service Nurse-only Follow-up Visit Follow-up Visit Visit (Physician/REGISTERED PUBLIC HEALTH NURSE (Physician/REGISTERED PUBLIC HEALTH NURSE ) ) Arrival Mode Wheelchair Ambulatory, Wheelchair Wheelchair Transfer Assistance None Patient Identification Verified (Name & Yes Yes Yes ) Patient Requires Transmission-Based No Precautions Height and Weight Body Mass Index (BMI) 72.0 72.0 72.0 BMI Classification Obese Obese Obese Vital Signs Temperature (97.8 F-99.1 F) 96.0 F L 97.7 F L 96.0 F L Temperature Source Temporal Temporal Oral Pulse Rate (60-100) 74 84 61 Pulse Location Monitor Monitor Monitor Respiratory Rate (12-18) 18 20 H 18 Respiratory rate source Observation Observation Oxygen Delivery Method Room Air Room Air Blood Pressure (90/60-120/80) 124/73 H 100/53 L 158/58 H Blood Pressure Mean (mm Hg) 90 68 91 Source Monitor Monitor Monitor Position Sitting Semi-Fowlers Blood Pressure Location Left Forearm Left Arm History Since Last Visit- (Skip if this is Patient's initial visit) Have you changed medications since your No No No last visit? Any new allergies or adverse reactions No No No Had a fall/change in ADL's that may No No No increase risk of falls Signs or symptoms of abuse and/or No No No neglect since last visit Have you been in the hospital since your No No No last visit? Has dressing in place as prescribed Yes Yes Yes Has compression in place as prescribed N/A N/A N/A Has offloadiing in place as prescribed N/A N/A N/A Experienced any changes in pain level or No No No management Left Footwear Regular Shoe Regular Shoe Right Footwear Regular Shoe Regular Shoe Pain Scale: 0-10 Numeric Is Patient Pain Free? Yes Yes Yes 04/01/24 10:13 [facility] Today's Visit Information Type of service Follow-up Visit (Physician/REGISTERED PUBLIC HEALTH NURSE ) Arrival Mode Ambulatory Transfer Assistance None Patient Identification Verified (Name & Yes ) Patient Requires Transmission-Based No Precautions Height and Weight Body Mass Index (BMI) 72.0 BMI Classification Obese Vital Signs Temperature (97.8 F-99.1 F) 96 F L Temperature Source Temporal Pulse Rate (60-100) 75 Pulse Location Monitor Respiratory Rate (12-18) 16 Respiratory rate source Observation Oxygen Delivery Method Room Air Blood Pressure (90/60-120/80) 149/81 H Blood Pressure Mean (mm Hg) 103 Source Monitor Position Sitting Blood Pressure Location Right Forearm History Since Last Visit- (Skip if this is Patient's initial visit) Have you changed medications since your No last visit? Any new allergies or adverse reactions No Had a fall/change in ADL's that may No increase risk of falls Signs or symptoms of abuse and/or No neglect since last visit Have you been in the hospital since your No last visit? Has dressing in place as prescribed Yes Has compression in place as prescribed N/A Has offloadiing in place as prescribed N/A Experienced any changes in pain level or No management Left Footwear Regular Shoe Right Footwear Regular Shoe Pain Scale: 0-10 Numeric Is Patient Pain Free? Yes WC - Nurse 1 - General Ulcer Measurement Start: 03/08/24 11:34 Freq: Status: Active Protocol: Activity Type Activity Date Activity User E-sign Co-sign Detail Recorded Client Recorded Date Recorded By Document 03/11/24 10:39 DL [email or web address] 03/11/24 10:48 DL Document 03/18/24 10:35 KW ][ 03/18/24 10:46 KW Document 04/01/24 10:13 [facility] [id number] 04/01/24 10:20 BM 03/11/24 03/18/24 04/01/24 10:39 10:35 10:13 Wound Center Nurse 1 7 RT BUTTOCK -Combined with other wound No -Current Size (cm) - Length 3.5 0.1 -Current Size (cm) - Width 4.7 0.1 -Current Size (cm) - Depth 0.1 0.1 -Total Square Cm 16.45 0.01 -Date of Last Picture (Recall this 03/18/24 04/01/24 field) -Photo Taken Yes -Epithelialization Large 67-100% -Exudate Amt Small -Exudate Type Serosanguineous -Wound Margin Distinct, Outline Attached -Granulation Amt Large (67-100%) -Granulation Quality Red -Texture (Sera-wound Skin Appearance) Assessed -Moisture (Sera-wound Skin Appearance) Assessed -Color (Sera-wound Skin Appearance) Assessed -Temperature (Sera-wound Skin No Abnormality Appearance) (Pt Warm) -Tenderness on Palpation (Sera-wound No Skin Appearance) -Ulcer Cleansing Soap and Water -Foul Odor after Cleansing No -Anesthetic Used 5% Lidocaine Gel 3-left side abd -Current Size (cm) - Length 0.1 2 -Current Size (cm) - Width 0.1 0.7 -Current Size (cm) - Depth 0.1 0.1 -Total Square Cm 0.01 1.4 -Date of Last Picture (Recall this 03/18/24 field) -Exudate Amt None Present Small -Exudate Type Serosanguineous -Wound Margin Flat & Intact Distinct, Outline Attached -Granulation Amt Small (1-33%) Large (67-100%) -Granulation Quality [place] Red -Necrosis Amt None Present (0 %) -Structure Exposed N/A -Texture (Sera-wound Skin Appearance) Scarring Assessed -Moisture (Sera-wound Skin Appearance) No Abnormality Assessed -Color (Sera-wound Skin Appearance) No Abnormality Assessed -Temperature (Sera-wound Skin No Abnormality No Abnormality Appearance) (Pt Warm) (Pt Warm) -Tenderness on Palpation (Sera-wound No No Skin Appearance) -Ulcer Cleansing Soap and Water Soap and Water -Foul Odor after Cleansing No No -Anesthetic Used 5% Lidocaine 5% Lidocaine Gel Gel #6 LT BUTTOCK -Combined with other wound No -Current Size (cm) - Length 0.7 0.1 -Current Size (cm) - Width 0.5 0.1 -Current Size (cm) - Depth 0.1 0.1 -Total Square Cm 0.35 0.01 -Date of Last Picture (Recall this 03/18/24 04/01/24 field) -Photo Taken Yes -Epithelialization Large 67-100% -Exudate Amt Small -Exudate Type Serosanguineous -Wound Margin Distinct, Outline Attached -Granulation Amt Large (67-100%) -Granulation Quality Red -Texture (Sera-wound Skin Appearance) Assessed -Moisture (Sera-wound Skin Appearance) Assessed -Color (Sera-wound Skin Appearance) Assessed -Temperature (Sera-wound Skin No Abnormality Appearance) (Pt Warm) -Tenderness on Palpation (Sera-wound No Skin Appearance) -Ulcer Cleansing Soap and Water -Foul Odor after Cleansing No -Anesthetic Used 5% Lidocaine Gel 4-right side abd -Combined with other wound No -Current Size (cm) - Length 0.6 0.1 0.7 -Current Size (cm) - Width 0.5 0.1 0.6 -Current Size (cm) - Depth 0.1 0.1 0.1 -Total Square Cm 0.30 0.01 0.42 -Date of Last Picture (Recall this 03/18/24 04/01/24 field) -Photo Taken Yes -Epithelialization Small 1-33% -Tunneling No -Undermining/Tunneling No -Circular Undermining No -Exudate Amt Medium Medium -Exudate Type Serosanguineous Serosanguineous -Wound Margin Distinct, Distinct, Outline Outline Attached Attached -Granulation Amt Small (1-33%) Large (67-100%) -Granulation Quality Pale,[place] Red -Slough/Fibrin Yes -Necrosis Amt Large (67-100%) Small (1-33%) -Necrotic Tissue Type Adherent Slough Adherent Slough -Structure Exposed N/A -Texture (Sera-wound Skin Appearance) Scarring Assessed -Moisture (Sera-wound Skin Appearance) No Abnormality Assessed -Color (Sera-wound Skin Appearance) No Abnormality Assessed -Temperature (Sera-wound Skin No Abnormality No Abnormality Appearance) (Pt Warm) (Pt Warm) -Tenderness on Palpation (Sera-wound No Skin Appearance) -Ulcer Cleansing Soap and Water Soap and Water -Foul Odor after Cleansing No No -Anesthetic Used 5% Lidocaine 5% Lidocaine Gel Gel -Wound Comment(s) POSSIBLY HEALED #2 ABD -Combined with other wound No -Current Size (cm) - Length 4.5 3.5 2.8 -Current Size (cm) - Width 5 4.7 4.1 -Current Size (cm) - Depth 0.2 0.1 0.1 -Total Square Cm 22.5 16.45 11.48 -Date of Last Picture (Recall this 03/18/24 04/01/24 field) -Photo Taken Yes -Epithelialization Small 1-33% -Tunneling No -Undermining/Tunneling No -Circular Undermining No -Exudate Amt Medium Medium Medium -Exudate Type Serosanguineous Serosanguineous Serosanguineous -Wound Margin Distinct, Distinct, Distinct, Outline Outline Outline Attached Attached Attached -Granulation Amt Medium (34-66%) Large (67-100%) Large (67-100%) -Granulation Quality Red Red Pale,Red -Slough/Fibrin Yes -Necrosis Amt Medium (34-66%) Small (1-33%) -Necrotic Tissue Type Adherent Slough Adherent Slough -Structure Exposed N/A -Texture (Sera-wound Skin Appearance) Scarring Assessed Assessed, Scarring -Moisture (Sera-wound Skin Appearance) Assessed Assessed Assessed -Color (Sera-wound Skin Appearance) No Abnormality Assessed Assessed -Temperature (Sera-wound Skin No Abnormality No Abnormality No Abnormality Appearance) (Pt Warm) (Pt Warm) (Pt Warm) -Tenderness on Palpation (Sera-wound No No Skin Appearance) -Ulcer Cleansing Soap and Water Soap and Water Soap and Water -Foul Odor after Cleansing No No No -Anesthetic Used 5% Lidocaine 5% Lidocaine 5% Lidocaine Gel Gel Gel WC - Nurse 2 - General Ulcer CM Notes Start: 03/08/24 11:34 Freq: Status: Active Protocol: Activity Type Activity Date Activity User E-sign Co-sign Detail Recorded Client Recorded Date Recorded By Document 03/11/24 11:24 0000 03/11/24 11:32 Document 03/18/24 11:00 0000 03/18/24 11:06 Document 04/01/24 10:37 [id number] 04/01/24 10:43 03/11/24 03/18/24 04/01/24 11:24 11:00 10:37 Wound Center Nurse 2 7 RT BUTTOCK -Correct Patient No No -Correct Side, Site, Position No No -Correct Procedure No No -Procedure Performed No No -Post Debridement (cm) - Length 0.8 0 -Post Debridement (cm) - Width 0.8 0 -Post Debridement (cm) - Depth 0.1 0 -Total Square (Post) (cm) 0.64 0 -Area of Debridement (cm) - Length 0.8 0 -Area of Debridement (cm) - Width 0.8 0 -Total Square (Area) (cm) 0.64 0 -Wound/Ulcer Outcome Not Healed Healed- Epithelialized 3-left side abd -Time 11:30 11:03 -Correct Patient Yes No -Correct Side, Site, Position Yes No -Correct Procedure Yes No -Procedure Performed Yes No -Type of Procedure Debridement -Clinical Debridement Subcutaneous -Tissue Removed Subcutaneous -Post Debridement (cm) - Length 0.5 0 -Post Debridement (cm) - Width 1.0 0 -Post Debridement (cm) - Depth 0.1 0 -Total Square (Post) (cm) 0.50 0 -Area of Debridement (cm) - Length 0.5 0 -Area of Debridement (cm) - Width 1.0 0 -Total Square (Area) (cm) 0.50 0 -Tunneling No No -Undermining/Tunneling No No -Circular Undermining No No -Wound/Ulcer Outcome Healed- Healed- Surgical Epithelialized Closure -Ulcer Cleansing Rinsed/ Irrigated with Saline -Foul Odor after Cleansing No No -Bioengineered Tissue No No -Bleeding Controlled with Pressure Pressure -Treatment Response Procedure Procedure Tolerated Well Tolerated Well -Offloading No No -Debridement - Subq, 1st 20sq cm No #6 LT BUTTOCK -Time 10:42 -Correct Patient No Yes -Correct Side, Site, Position No Yes -Correct Procedure No Yes -Procedure Performed No Yes -Type of Procedure Debridement -Clinical Debridement Subcutaneous -Tissue Removed Subcutaneous -Post Debridement (cm) - Length 1.5 0.6 -Post Debridement (cm) - Width 1.0 0.3 -Post Debridement (cm) - Depth 0.1 0.1 -Total Square (Post) (cm) 1.50 0.18 -Area of Debridement (cm) - Length 1.5 0.6 -Area of Debridement (cm) - Width 1.0 0.3 -Total Square (Area) (cm) 1.50 0.18 -Tunneling No -Circular Undermining No -Wound/Ulcer Outcome Not Healed Not Healed -Ulcer Cleansing Rinsed/ Irrigated with Saline -Foul Odor after Cleansing No -Bioengineered Tissue No -Bleeding Controlled with Pressure -Treatment Response Procedure Tolerated Well -Offloading No -Debridement - Subq, 1st 20sq cm No 4-right side abd -Time 11:28 11:02 10:39 -Correct Patient Yes Yes Yes -Correct Side, Site, Position Yes Yes Yes -Correct Procedure Yes Yes Yes -Procedure Performed Yes Yes Yes -Type of Procedure Debridement Debridement Debridement -Clinical Debridement Subcutaneous Subcutaneous Subcutaneous -Tissue Removed Subcutaneous Subcutaneous Subcutaneous -Post Debridement (cm) - Length 1.0 1.2 1.0 -Post Debridement (cm) - Width 1.0 1.4 0.6 -Post Debridement (cm) - Depth 0.1 0.1 0.1 -Total Square (Post) (cm) 1.00 1.68 0.60 -Area of Debridement (cm) - Length 1.0 1.2 1.0 -Area of Debridement (cm) - Width 1.0 1.4 0.6 -Total Square (Area) (cm) 1.00 1.68 0.60 -Tunneling No No No -Undermining/Tunneling No No No -Circular Undermining No No No -Wound/Ulcer Outcome Not Healed Not Healed Not Healed -Ulcer Cleansing Rinsed/ Rinsed/ Rinsed/ Irrigated with Irrigated with Irrigated with Saline Saline Saline -Foul Odor after Cleansing No No No -Bioengineered Tissue No No No -Bleeding Controlled with Pressure Pressure Pressure -Treatment Response Procedure Procedure Procedure Tolerated Well Tolerated Well Tolerated Well -Offloading No No No -Debridement - Subq, 1st 20sq cm No No Yes #2 ABD -Time 11:31 11:03 10:40 -Correct Patient Yes Yes Yes -Correct Side, Site, Position Yes Yes Yes -Correct Procedure Yes Yes Yes -Procedure Performed Yes Yes Yes -Type of Procedure Debridement Debridement Debridement -Clinical Debridement Subcutaneous Subcutaneous Subcutaneous -Tissue Removed Subcutaneous Subcutaneous Subcutaneous -Post Debridement (cm) - Length 4 3.5 2.9 -Post Debridement (cm) - Width 6 5 4.3 -Post Debridement (cm) - Depth 0.1 0.1 0.1 -Total Square (Post) (cm) 24 17.5 12.47 -Area of Debridement (cm) - Length 4 3.5 2.9 -Area of Debridement (cm) - Width 6 5 4.3 -Total Square (Area) (cm) 24 17.5 12.47 -Tunneling No No No -Undermining/Tunneling No No No -Circular Undermining No No No -Wound/Ulcer Outcome Not Healed Not Healed Not Healed -Ulcer Cleansing Rinsed/ Rinsed/ Rinsed/ Irrigated with Irrigated with Irrigated with Saline Saline Saline -Foul Odor after Cleansing No No No -Bioengineered Tissue No No No -Bleeding Controlled with Pressure Pressure Pressure -Treatment Response Procedure Procedure Procedure Tolerated Well Tolerated Well Tolerated Well -Offloading No No No -Debridement - Subq, 1st 20sq cm Yes Yes No -Debridement, SubQ, ea addt'l 20sq cm 1 or part thereof Pain Scale: 0-10 Numeric Is Patient Pain Free? Yes Yes Yes WC - Nurse 3 - General Ulcer D/C NN Start: 03/08/24 11:34 Freq: Status: Active Protocol: Activity Type Activity Date Activity User E-sign Co-sign Detail Recorded Client Recorded Date Recorded By Document 03/08/24 11:34 KW bgj 03/08/24 11:37 KW Document 03/18/24 11:11 KW ][ 03/18/24 11:13 KW Document 04/01/24 10:52 DL [id number] 04/01/24 10:57 DL 03/08/24 03/18/24 04/01/24 11:34 11:11 10:52 Vital Signs Temperature (97.8 F-99.1 F) 96.0 F L Temperature Source Temporal Pulse Rate (60-100) 74 Pulse Location Monitor Respiratory Rate (12-18) 18 Respiratory rate source Observation Oxygen Delivery Method Room Air Blood Pressure (90/60-120/80) 124/73 H Blood Pressure Mean (mm Hg) 90 Source Monitor Position Sitting Blood Pressure Location Left Forearm Pain Scale: 0-10 Numeric Is Patient Pain Free? Yes Yes Yes Wound Care Center Nurse 3 7 RT BUTTOCK -Other Dressing SILVER -Primary Dressing Covered/Secured with Dry Gauze, Secured with Tape 3-left side abd -Primary Dressing Applied Silvercel -Primary Dressing Covered/Secured with Dry Gauze, Secured with Tape -Silvercel 1 #6 LT BUTTOCK -Other Dressing SILVER -Primary Dressing Covered/Secured with Dry Gauze, Secured with Tape -Wound Comment(s) pt to apply kana at home 4-right side abd -Ulcer Cleansing Rinsed/ Irrigated with Saline -Foul Odor after Cleansing No -Primary Dressing Applied Silvercel -Other Dressing SILVER abd -Primary Dressing Covered/Secured with Dry Gauze, Dry Gauze, Secured with Secured with Tape Tape -Silvercel 1 #2 ABD -Ulcer Cleansing Rinsed/ Irrigated with Saline -Foul Odor after Cleansing No -Primary Dressing Applied Silvercel -Other Dressing SILVERCEL SILVER abd -Primary Dressing Covered/Secured with Dry Gauze, Dry Gauze, Dry Gauze, Secured with Secured with Secured with Tape Tape Tape -Silvercel 0 Treatment Response Procedure Tolerated Well WC - Visit Discharge Discharge Condition Stable Stable Stable Ambulatory Status Wheelchair Wheelchair Wheelchair Transportation Private Auto Private Auto Private Auto Accompanied by daughter Medication Reconcilliation completed & No No provided to patient/care provider Clinical Summary of Care Provided Yes Yes Facility Type Home Health Additional Wound Wound debrided: #3 right lateral abd skin fold Wound Grade/Stage: Stage III Type of Debridement: Excisional debridement Anesthesia Used: 5% Lidocaine Gel Depth: Down to and including healthy tissue and in the subcutaneous layer Percentage of wound debrided: 100 Instrument Used: 3mm curette Tissue Removed: Non viable tissue and slough Severity: Fat Layer Exposed Amount of bleeding with debridement: Mild Bleeding Controlled with: Pressure and Compression and gauze Patient tolerated procedure: Patient tolerated procedure well Additional Wound Wound debrided: ischial ulcer Laterality: Left Wound Grade/Stage: Stage II Type of Debridement: Excisional debridement Anesthesia Used: 5% Lidocaine Gel Depth: Down to and including healthy tissue and in the subcutaneous layer Percentage of wound debrided: 100 Instrument Used: 3mm curette Tissue Removed: Non viable tissue and slough Severity: Limited To Skin Breakdown Amount of bleeding with debridement: Mild Bleeding Controlled with: Pressure and Compression and gauze Patient tolerated procedure: Patient tolerated procedure well Assessment/Plan Assessment/Plan (1) Skin ulcer of abdominal wall with fat layer exposed: CODE(S): L98.492 - Non-pressure chronic ulcer of skin of other sites with fat layer exposed (2) Obesity: CODE(S): E66.9 - Obesity, unspecified QUALIFIERS: Body mass index: BMI 70 or greater Obesity classification: adult class 3 (BMI >= 40) Obesity type: due to excess calories Serious obesity comorbidity presence: with serious comorbidity Qualified Code(s): E66.01 - Morbid (severe) obesity due to excess calories; Z68.45 - Body mass index [BMI] 70 or greater, adult (3) Umbilicus discharge: CODE(S): R19.8 - Other specified symptoms and signs involving the digestive system and abdomen (4) Yeast infection of the skin: CODE(S): B37.2 - Candidiasis of skin and nail (5) Decubitus ulcer of left perineal ischial region, stage 2: CODE(S): L89.322 - Pressure ulcer of left buttock, stage 2 (6) Decubitus ulcer of right perineal ischial region, stage 2: CODE(S): L89.312 - Pressure ulcer of right buttock, stage 2 PLAN: Plan Patient evaluated at the wound healing center today. Wound care for the ulcers on right lateral abdomen and the lower abdomen/pannus area place Silvercel/silver alginate daily covered with gauze/ABD/Dyess SAP daily to these ulcers after washing with soap and water. Place barrier cream on the left ischial ulcer twice daily and as needed. She may use Calmoseptine cream, Pinxav, or zinc oxide. Stressed off loading as much as possible. For her umbilicus, will continue placing a strip of 1/4 Iodoform gauze to help absorb the moisture and prevent maceration and skin rubbing against itself. She has home health to help her with her dressing changes 2-3 times per week. There has been an improvement in her ulcers with home health assisting her with her dressings. Her daughter helps her with her dressings on the days that she isn't seen by home health. Wound culture were collected [facility] and she was placed on Doxycycline prophylactically. The wound cultures were positive for Pseudomonas aeruginosa, Proteus mirabilis, and Corynebacterium striatum. These bacteria are not sensitive to the Doxycycline. She has finished the Levaquin to cover the Pseudomonas and Proteus. The Corynebacterium is skin contaminant. Reinforced to her to try and elevate her pannus on a pillow so that some of the swelling may decrease in the area that is most dependent. She had an ultrasound of her abdomen at [facility] and it showed an abdominal hernia. She states she was removed from bariatric surgery program and was referred to the obesity medicine which she saw last week. They have put her on Trulicity. She has not started it yet. She states that she tried taking this in the past and it made her sick. She states that she is not able to get enough protein intake and can not afford the protein supplements, therefore, she may not be a candidate for the bariatric surgery. I stressed the importance of increased protein intake for wound healing. The increased protein intake/supplementation is necessary no matter what treatment plan that she decides to have. She will follow up 2 weeks since the holiday is in one week.
--- NOTE | 2024-04-03 13:25 | WC ---
PHOTO MID ABD 04/01/24
--- NOTE | 2024-04-03 13:27 | WC ---
PHOTO 04/01/24 RIGHT BUTTOCKS
== END 2024-04-06 23:59 | disposition home or self-care (01) ==
LOC: WC 10:15
PROVIDERS: PCP Preventive Medicine Occupational Medicine; Referring Provider Physician Assistant; Visit Provider Nurse Practitioner Family
DX: L98.492 Non-pressure chronic ulcer of skin of other sites with fat layer exposed (principal); L89.312 Pressure ulcer of right buttock, stage 2; L89.322 Pressure ulcer of left buttock, stage 2; E66.01 Morbid (severe) obesity due to excess calories; Z68.45 Body mass index [BMI] 70 or greater, adult; B37.2 Candidiasis of skin and nail; M17.11 Unilateral primary osteoarthritis, right knee; R19.8 Other specified symptoms and signs involving the digestive system and abdomen; R26.2 Difficulty in walking, not elsewhere classified; R73.03 Prediabetes; E03.9 Hypothyroidism, unspecified; G47.30 Sleep apnea, unspecified; Z79.84 Long term (current) use of oral hypoglycemic drugs; Z79.85 Long-term (current) use of injectable non-insulin antidiabetic drugs; Z79.899 Other long term (current) drug therapy
CPT/HCPCS: 11042; 11045; 99213; G0463

== ENCOUNTER 2024-04-22 10:30 | Outpatient (RCR) | payer MEDICAID, SELFPAY ==
[2024-04-07 00:17] VITALS: BP 163/76; PULSE 77; RESP 16; TEMP 36.1; O2SAT 98; BMI 72.0
[2024-04-15 10:36] VITALS: BP 134/68; PULSE 75; RESP 18; TEMP 35.8; BMI 72.0
--- NOTE | 2024-04-15 12:33 | PN.PCM_ITS ---
History of Present Illness Date of Service: 04/15/24 Chief Complaint: Ulcer on abdomen and leaky belly button. History of Wound: Patient is a 48-year-old female who presented on her pannus. She states that it was just noticed 1 to 2 weeks ago. She is obese and has a difficult time walking due to knee pain. She is able to transfer to and from her wheelchair. She states she is still able to drive. She states that she was bathing a couple weeks ago and discovered this ulcer. She states that it does have drainage. She has been covering it with a disposable pad to absorb the drainage. She also states that she has issues with drainage from her umbilicus. It will sometimes have a strong odor and also will bleed on occasion. She states she has seen dermatology and a general surgeon about this and they stated there was not much to do for this. Dermatology has put her on Ketoconazole cream for rashes in skin folds, that she has not recently been using. While examining her it was discovered that she also has an ulcer on her right lateral abdomen and her left lateral abdomen in a skin fold. She states she has a hard time bathing herself due to the weight of her pannus. She has a history of hypothyroidism, pre diabetes, polycystic ovary, asthma, sleep apnea, an ulcer on her left lower leg, and right knee arthritis. [facility]ound culture [facility]/23 [facility] and was positive for Pseudomonas aeruginosa, Proteus mirabilis, and Corynebacterium striatum. She was treated wi Doxycycline before the culture results were back. Will start her on Levaquin. She comes in today for further evaluation of her ulcer. She denies fever, chills, nausea or vomiting. Progress of Wound: The ulcer on the left lateral abdomen in the pannus skin fold has reopened, it is pink and superficial. Lower abdominal/pannus ulcer is pink and smaller in size. The ulcer is located in the most dependent portion of her pannus, there is edema present. The ulcer on her right lateral abdomen pannus skin fold is healed today. Left ischial ulcer is healed today. She has been placing iodoform gauze into her umbilicus stalk to help absorb the drainage that is present. She now has home health assisting her with her dressing changes 2-3 times per week, which I believe has really helped with the decrease in her ulcers sizes. Objective Data Objective Data Vital Signs: Vital Signs Temp Pulse Resp BP Pulse Ox O2 Del Method 96.5 F L 75 18 134/68 H 98 Room Air 04/15/24 10:36 04/15/24 10:36 04/15/24 10:36 04/15/24 10:36 04/07/24 00:17 04/15/24 10:36 Oxygen Delivery Method Room Air Weight: 433 lb Body Mass Index (BMI) 72.0 Charges/Coding Procedures Integumentary 111xxx-113xx: [id number] Silvia subq tissue 20 sq cm/< Debridement Note Debridement Note Wound debrided: Lower abdominal pannus Laterality: Not Applicable Wound Grade/Stage: Stage III Type of Debridement: Excisional debridement Anesthesia Used: 5% Lidocaine Gel Depth: Down to and including healthy tissue and in the subcutaneous layer Percentage of wound debrided: 100 Instrument Used: 7mm curette Tissue Removed: Non viable tissue and slough Severity: Fat Layer Exposed Amount of bleeding with debridement: Mild Bleeding Controlled with: Compression and gauze Patient tolerated procedure: Patient tolerated procedure well Post-Debridement Measurements and Additional Note: Post-Debridement Measurements/Treatment - Nurse 1 - General Ulcer Assessment Start: 04/15/24 10:36 Freq: Status: Active Protocol: BALDEMAR Activity Type Activity Date Activity User E-sign Co-sign Detail Recorded Client Recorded Date Recorded By Document 04/15/24 10:36 [id number] 04/15/24 10:52 AMA 04/15/24 10:36 - Today's Visit Information Type of service Follow-up Visit (Physician/PET TRAINING INSTRUCTOR ) Arrival Mode Wheelchair Patient Identification Verified (Name & Yes ) Height and Weight Body Mass Index (BMI) 72.0 BMI Classification Obese Vital Signs Temperature (97.8 F-99.1 F) 96.5 F L Temperature Source Temporal Pulse Rate (60-100) 75 Pulse Location Monitor Respiratory Rate (12-18) 18 Respiratory rate source Observation Oxygen Delivery Method Room Air Blood Pressure (90/60-120/80) 134/68 H Blood Pressure Mean (mm Hg) 90 Source Monitor Position Semi-Fowlers Blood Pressure Location Left Arm History Since Last Visit- (Skip if this is Patient's initial visit) Have you changed medications since your No last visit? Any new allergies or adverse reactions No Had a fall/change in ADL's that may No increase risk of falls Signs or symptoms of abuse and/or No neglect since last visit Have you been in the hospital since your No last visit? Has dressing in place as prescribed Yes Has compression in place as prescribed N/A Has offloadiing in place as prescribed N/A Experienced any changes in pain level or No management Left Footwear Regular Shoe Right Footwear Regular Shoe Pain Scale: 0-10 Numeric Is Patient Pain Free? Yes WC - Nurse 1 - General Ulcer Measurement Start: 04/15/24 10:36 Freq: Status: Active Protocol: Activity Type Activity Date Activity User E-sign Co-sign Detail Recorded Client Recorded Date Recorded By Document 04/15/24 10:36 KW [id number] 04/15/24 10:52 KW 04/15/24 10:36 Wound Center Nurse 1 #6 LT BUTTOCK -Texture (Sera-wound Skin Appearance) Assessed -Moisture (Sera-wound Skin Appearance) Assessed -Color (Sera-wound Skin Appearance) Assessed -Temperature (Sera-wound Skin No Abnormality Appearance) (Pt Warm) -Tenderness on Palpation (Sera-wound No Skin Appearance) -Ulcer Cleansing Soap and Water -Foul Odor after Cleansing No 4-right side abd -Current Size (cm) - Length 0 -Current Size (cm) - Width 0 -Current Size (cm) - Depth 0 -Total Square Cm 0 -Texture (Sera-wound Skin Appearance) Assessed -Moisture (Sera-wound Skin Appearance) Assessed -Color (Sera-wound Skin Appearance) Assessed -Temperature (Sera-wound Skin No Abnormality Appearance) (Pt Warm) -Tenderness on Palpation (Sera-wound No Skin Appearance) -Ulcer Cleansing Soap and Water 3-left side abd -Current Size (cm) - Length 0.8 -Current Size (cm) - Width 1 -Current Size (cm) - Depth 0.1 -Total Square Cm 0.8 -Exudate Amt Medium -Exudate Type Serosanguineous -Wound Margin Distinct, Outline Attached -Granulation Amt Small (1-33%) -Granulation Quality Patrick -Necrosis Amt Large (67-100%) -Necrotic Tissue Type Adherent Slough -Texture (Sera-wound Skin Appearance) Assessed -Moisture (Sera-wound Skin Appearance) Assessed -Color (Sera-wound Skin Appearance) Assessed -Temperature (Sera-wound Skin No Abnormality Appearance) (Pt Warm) -Tenderness on Palpation (Sera-wound No Skin Appearance) -Ulcer Cleansing Soap and Water -Foul Odor after Cleansing No -Anesthetic Used 5% Lidocaine Gel #2 ABD -Current Size (cm) - Length 3 -Current Size (cm) - Width 4 -Current Size (cm) - Depth 0.1 -Total Square Cm 12 -Exudate Amt Small -Exudate Type Serosanguineous -Wound Margin Distinct, Outline Attached -Granulation Amt Large (67-100%) -Granulation Quality Red -Necrosis Amt Small (1-33%) -Necrotic Tissue Type Adherent Slough -Texture (Sera-wound Skin Appearance) Assessed -Moisture (Sera-wound Skin Appearance) Assessed -Color (Sera-wound Skin Appearance) Assessed -Temperature (Sera-wound Skin No Abnormality Appearance) (Pt Warm) -Tenderness on Palpation (Sera-wound No Skin Appearance) -Ulcer Cleansing Soap and Water -Foul Odor after Cleansing No -Anesthetic Used 5% Lidocaine Gel WC - Nurse 2 - General Ulcer CM Notes Start: 04/15/24 10:36 Freq: Status: Active Protocol: Activity Type Activity Date Activity User E-sign Co-sign Detail Recorded Client Recorded Date Recorded By Document 04/15/24 11:13 CARLA [id number] 04/15/24 11:17 04/15/24 11:13 Wound Center Nurse 2 #6 LT BUTTOCK -Correct Patient No -Correct Side, Site, Position No -Correct Procedure No -Procedure Performed No -Post Debridement (cm) - Length 0 -Post Debridement (cm) - Width 0 -Total Square (Post) (cm) 0 -Area of Debridement (cm) - Length 0 -Area of Debridement (cm) - Width 0 -Total Square (Area) (cm) 0 -Wound/Ulcer Outcome Healed- Epithelialized 4-right side abd -Correct Patient No -Correct Side, Site, Position No -Correct Procedure No -Procedure Performed No -Post Debridement (cm) - Length 0 -Post Debridement (cm) - Width 0 -Post Debridement (cm) - Depth 0 -Total Square (Post) (cm) 0 -Area of Debridement (cm) - Length 0 -Area of Debridement (cm) - Width 0 -Total Square (Area) (cm) 0 -Wound/Ulcer Outcome Healed- Epithelialized 3-left side abd -Time 11:14 -Correct Patient Yes -Correct Side, Site, Position Yes -Correct Procedure Yes -Procedure Performed Yes -Type of Procedure Debridement -Clinical Debridement Subcutaneous -Tissue Removed Subcutaneous -Post Debridement (cm) - Length 1 -Post Debridement (cm) - Width 1 -Post Debridement (cm) - Depth 0.1 -Total Square (Post) (cm) 1 -Area of Debridement (cm) - Length 1 -Area of Debridement (cm) - Width 1 -Total Square (Area) (cm) 1 -Tunneling No -Undermining/Tunneling No -Circular Undermining No -Wound/Ulcer Outcome Not Healed -Ulcer Cleansing Rinsed/ Irrigated with Saline -Foul Odor after Cleansing No -Bioengineered Tissue No -Bleeding Controlled with Pressure -Treatment Response Procedure Tolerated Well -Offloading No -Debridement - Subq, 1st 20sq cm No #2 ABD -Time 11:16 -Correct Patient Yes -Correct Side, Site, Position Yes -Correct Procedure Yes -Procedure Performed Yes -Type of Procedure Debridement -Clinical Debridement Subcutaneous -Tissue Removed Subcutaneous -Post Debridement (cm) - Length 3.0 -Post Debridement (cm) - Width 4.5 -Post Debridement (cm) - Depth 0.1 -Total Square (Post) (cm) 13.50 -Area of Debridement (cm) - Length 3.0 -Area of Debridement (cm) - Width 4.5 -Total Square (Area) (cm) 13.50 -Tunneling No -Undermining/Tunneling No -Circular Undermining No -Wound/Ulcer Outcome Not Healed -Ulcer Cleansing Rinsed/ Irrigated with Saline -Foul Odor after Cleansing No -Bioengineered Tissue No -Bleeding Controlled with Pressure -Treatment Response Procedure Tolerated Well -Offloading No -Debridement - Subq, 1st 20sq cm Yes Pain Scale: 0-10 Numeric Is Patient Pain Free? Yes WC - Nurse 3 - General Ulcer D/C NN Start: 04/15/24 10:36 Freq: Status: Active Protocol: Activity Type Activity Date Activity User E-sign Co-sign Detail Recorded Client Recorded Date Recorded By Document 04/15/24 11:28 KW [id number] 04/15/24 11:29 KW Document 04/15/24 11:37 KW [id number] 04/15/24 11:37 KW 04/15/24 04/15/24 11:28 11:37 Wound Care Center Nurse 3 3-left side abd -Other Dressing PT SILVER -Primary Dressing Covered/Secured with Dry Gauze, Secured with Tape #2 ABD -Primary Dressing Applied Nugauze, Iodoform 1/2in -Other Dressing SILVER -Primary Dressing Covered/Secured with Dry Gauze, Secured with Tape -Nugauze, Iodoform 1/2in 1 Pain Scale: 0-10 Numeric Is Patient Pain Free? Yes Yes WC - Visit Discharge Discharge Condition Stable Ambulatory Status Wheelchair Transportation Private Auto Medication Reconcilliation completed & No provided to patient/care provider Clinical Summary of Care Provided Yes Additional Wound Wound debrided: Left lateral abd skin fold Wound Grade/Stage: Stage III Type of Debridement: Excisional debridement Anesthesia Used: 5% Lidocaine Gel Depth: Down to and including healthy tissue and in the subcutaneous layer Percentage of wound debrided: 100 Instrument Used: 3mm curette Tissue Removed: Non viable tissue and slough Severity: Fat Layer Exposed Amount of bleeding with debridement: Mild Bleeding Controlled with: Pressure and Compression and gauze Patient tolerated procedure: Patient tolerated procedure well Assessment/Plan Assessment/Plan (1) Skin ulcer of abdominal wall with fat layer exposed: CODE(S): L98.492 - Non-pressure chronic ulcer of skin of other sites with fat layer exposed (2) Obesity: CODE(S): E66.9 - Obesity, unspecified QUALIFIERS: Obesity type: due to excess calories Obesity classification: adult class 3 (BMI >= 40) Serious obesity comorbidity presence: with serious comorbidity Body mass index: BMI 70 or greater Qualified Code(s): E66.01 - Morbid (severe) obesity due to excess calories; Z68.45 - Body mass index [BMI] 70 or greater, adult (3) Umbilicus discharge: CODE(S): R19.8 - Other specified symptoms and signs involving the digestive system and abdomen (4) Yeast infection of the skin: CODE(S): B37.2 - Candidiasis of skin and nail (5) Decubitus ulcer of left perineal ischial region, stage 2: CODE(S): L89.322 - Pressure ulcer of left buttock, stage 2 (6) Decubitus ulcer of right perineal ischial region, stage 2: CODE(S): L89.312 - Pressure ulcer of right buttock, stage 2 (7) Morbid obesity with BMI of 70 and over, adult: CODE(S): E66.01 - Morbid (severe) obesity due to excess calories; Z68.45 - Body mass index [BMI] 70 or greater, adult (8) Nonhealing skin ulcer: CODE(S): L98.499 - Non-pressure chronic ulcer of skin of other sites with unspecified severity QUALIFIERS: Non-pressure ulcer stage: with fat layer exposed Qualified Code(s): L98.492 - Non-pressure chronic ulcer of skin of other sites with fat layer exposed (9) Pre-diabetes: CODE(S): R73.03 - Prediabetes PLAN: Plan Patient evaluated at the wound healing center today. Wound care for the ulcers on left lateral abdomen and the lower abdomen/pannus area place Silvercel/silver alginate daily covered with gauze/ABD/[place] SAP daily to these ulcers after washing with soap and water. Place barrier cream on the ischial areas twice daily and as needed. She may use Calmoseptine cream, Pinxav, or zinc oxide. Stressed off loading as much as possible. They are healed today, she needs to off load as much as possible to prevent them from returning. For her umbilicus, will continue placing a strip of 1/4 Iodoform gauze to help absorb the moisture and prevent maceration and skin rubbing against itself. She has home health to help her with her dressing changes 2-3 times per week. There has been an improvement in her ulcers with home health assisting her with her dressings. Her daughter helps her with her dressings on the days that she isn't seen by home health. Wound culture were collected [facility] and she was placed on Doxycycline prophylactically. The wound cultures were positive for Pseudomonas aeruginosa, Proteus mirabilis, and Corynebacterium striatum. These bacteria are not sensitive to the Doxycycline. She has finished the Levaquin to cover the Pseudomonas and Proteus. The Corynebacterium is skin contaminant. Reinforced to her to try and elevate her pannus on a pillow so that some of the swelling may decrease in the area that is most dependent. She had an ultrasound of her abdomen at [facility] and it showed an abdominal hernia. She states she was removed from bariatric surgery program and was referred to the obesity medicine which she saw last week. They have put her on Trulicity. She has not started it yet. She states that she tried taking this in the past and it made her sick. She states that she is not able to get enough protein intake and can not afford the protein supplements, therefore, she may not be a candidate for the bariatric surgery. I stressed the importance of increased protein intake for wound healing. The increased protein intake/supplementation is necessary no matter what treatment plan that she decides to have. She had CT of abdomen and Bill on 03/25/24. She brought in a copy of the results from her mychart. She was not able to do IV contrast due to the elevation in her creatinine, so the study is limited. Will refer to dietary due to her non healing ulcers, pre diabetes and BMI of 72.1 She will follow up 2 weeks..
[2024-04-22 10:25] VITALS: RESP 18; BMI 72.0
--- NOTE | 2024-04-22 11:39 | PCM.WC.PN ---
History of Present Illness Date of Service: 04/22/24 Chief Complaint: Ulcer on abdomen and leaky belly button. History of Wound: Patient is a 48-year-old female who presented on her pannus. She states that it was just noticed 1 to 2 weeks ago. She is obese and has a difficult time walking due to knee pain. She is able to transfer to and from her wheelchair. She states she is still able to drive. She states that she was bathing a couple weeks ago and discovered this ulcer. She states that it does have drainage. She has been covering it with a disposable pad to absorb the drainage. She also states that she has issues with drainage from her umbilicus. It will sometimes have a strong odor and also will bleed on occasion. She states she has seen dermatology and a general surgeon about this and they stated there was not much to do for this. Dermatology has put her on Ketoconazole cream for rashes in skin folds, that she has not recently been using. While examining her it was discovered that she also has an ulcer on her right lateral abdomen and her left lateral abdomen in a skin fold. She states she has a hard time bathing herself due to the weight of her pannus. She has a history of hypothyroidism, pre diabetes, polycystic ovary, asthma, sleep apnea, an ulcer on her left lower leg, and right knee arthritis. [facility]/23 [facility] and was positive for Pseudomonas aeruginosa, Proteus mirabilis, and Corynebacterium striatum. She was treated with Doxycycline before the culture results were back. Will start her on Levaquin. She comes in today for further evaluation of her ulcer. She denies fever, chills, nausea or vomiting. Progress of Wound: The ulcer on the left lateral abdomen in the pannus skin fold is slightly smaller, it is pink and superficial. Lower abdominal/pannus ulcer is pink and smaller in size. The ulcer is located in the most dependent portion of her pannus, there is edema present. The ulcer on her right lateral abdomen pannus skin fold and left ischial ulcer remain healed She has been placing iodoform gauze into her umbilicus stalk to help absorb the drainage that is present. She now has home health assisting her with her dressing changes 2-3 times per week, which I believe has really helped with the decrease in her ulcers sizes. Objective Data Objective Data Vital Signs: Vital Signs Temp Pulse Resp BP Pulse Ox O2 Del Method 96.5 F L 75 18 134/68 H 98 Room Air 04/15/24 10:36 04/15/24 10:36 04/22/24 10:25 04/15/24 10:36 04/07/24 00:17 04/22/24 10:25 Oxygen Delivery Method Room Air Weight: 433 lb Body Mass Index (BMI) 72.0 Charges/Coding Procedures Integumentary 111xxx-113xx: 18638 Silvia subq tissue 20 sq cm/< Debridement Note Debridement Note Wound debrided: Lower abdominal pannus Laterality: Not Applicable Wound Grade/Stage: Stage III Type of Debridement: Excisional debridement Anesthesia Used: 5% Lidocaine Gel Depth: Down to and including healthy tissue and in the subcutaneous layer Percentage of wound debrided: 100 Instrument Used: 7mm curette Tissue Removed: Non viable tissue and slough Severity: Fat Layer Exposed Amount of bleeding with debridement: Mild Bleeding Controlled with: Compression and gauze Patient tolerated procedure: Patient tolerated procedure well Post-Debridement Measurements and Additional Note: Post-Debridement Measurements/Treatment - Nurse 1 - General Ulcer Assessment Start: 04/15/24 10:36 Freq: Status: Active Protocol: .JORGE Activity Type Activity Date Activity User E-sign Co-sign Detail Recorded Client Recorded Date Recorded By Document 04/15/24 10:36 KW [id number] 04/15/24 10:52 KW Document 04/22/24 10:25 KW [id number] 04/22/24 10:45 KW 04/15/24 04/22/24 10:36 10:25 - Today's Visit Information Type of service Follow-up Visit Follow-up Visit (Physician/[facility] PSYCHIATRIST (Physician/[facility] PSYCHIATRIST ) ) Arrival Mode Wheelchair Wheelchair Patient Identification Verified (Name & Yes Yes ) Height and Weight Body Mass Index (BMI) 72.0 72.0 BMI Classification Obese Obese Vital Signs Temperature (97.8 F-99.1 F) 96.5 F L Temperature Source Temporal Temporal Pulse Rate (60-100) 75 Pulse Location Monitor Monitor Respiratory Rate (12-18) 18 18 Respiratory rate source Observation Observation Oxygen Delivery Method Room Air Room Air Blood Pressure (90/60-120/80) 134/68 H Blood Pressure Mean (mm Hg) 90 Source Monitor Monitor Position Semi-Fowlers Sitting Blood Pressure Location Left Arm Left Arm History Since Last Visit- (Skip if this is Patient's initial visit) Have you changed medications since your No No last visit? Any new allergies or adverse reactions No No Had a fall/change in ADL's that may No No increase risk of falls Signs or symptoms of abuse and/or No No neglect since last visit Have you been in the hospital since your No No last visit? Has dressing in place as prescribed Yes Yes Has compression in place as prescribed N/A N/A Has offloadiing in place as prescribed N/A N/A Experienced any changes in pain level or No No management Left Footwear Regular Shoe Regular Shoe Right Footwear Regular Shoe Regular Shoe Pain Scale: 0-10 Numeric Is Patient Pain Free? Yes Yes WC - Nurse 1 - General Ulcer Measurement Start: 04/15/24 10:36 Freq: Status: Active Protocol: Activity Type Activity Date Activity User E-sign Co-sign Detail Recorded Client Recorded Date Recorded By Document 04/15/24 10:36 KW [id number] 04/15/24 10:52 KW Document 04/22/24 10:25 Broadcastr [id number] 04/22/24 10:45 KW 04/15/24 04/22/24 10:36 10:25 Wound Center Nurse 1 #6 LT BUTTOCK -Texture (Sera-wound Skin Appearance) Assessed -Moisture (Sera-wound Skin Appearance) Assessed -Color (Sera-wound Skin Appearance) Assessed -Temperature (Sera-wound Skin No Abnormality Appearance) (Pt Warm) -Tenderness on Palpation (Sera-wound No Skin Appearance) -Ulcer Cleansing Soap and Water -Foul Odor after Cleansing No 4-right side abd -Current Size (cm) - Length 0 -Current Size (cm) - Width 0 -Current Size (cm) - Depth 0 -Total Square Cm 0 -Texture (Sera-wound Skin Appearance) Assessed -Moisture (Sera-wound Skin Appearance) Assessed -Color (Sera-wound Skin Appearance) Assessed -Temperature (Sera-wound Skin No Abnormality Appearance) (Pt Warm) -Tenderness on Palpation (Sera-wound No Skin Appearance) -Ulcer Cleansing Soap and Water 3-left side abd -Current Size (cm) - Length 0.8 1.3 -Current Size (cm) - Width 1 1 -Current Size (cm) - Depth 0.1 0.1 -Total Square Cm 0.8 1.3 -Date of Last Picture (Recall this 04/22/24 field) -Exudate Amt Medium -Exudate Type Serosanguineous -Wound Margin Distinct, Distinct, Outline Outline Attached Attached -Granulation Amt Small (1-33%) Medium (34-66%) -Granulation Quality Fingal Red -Necrosis Amt Large (67-100%) Medium (34-66%) -Necrotic Tissue Type Adherent Slough Adherent Slough -Texture (Sera-wound Skin Appearance) Assessed Assessed -Moisture (Sera-wound Skin Appearance) Assessed Assessed -Color (Sera-wound Skin Appearance) Assessed Assessed -Temperature (Sera-wound Skin No Abnormality No Abnormality Appearance) (Pt Warm) (Pt Warm) -Tenderness on Palpation (Sera-wound No No Skin Appearance) -Ulcer Cleansing Soap and Water Soap and Water -Foul Odor after Cleansing No No -Anesthetic Used 5% Lidocaine 5% Lidocaine Gel Gel #2 ABD -Current Size (cm) - Length 3 2.4 -Current Size (cm) - Width 4 3.3 -Current Size (cm) - Depth 0.1 0.1 -Total Square Cm 12 7.92 -Date of Last Picture (Recall this 04/22/24 field) -Exudate Amt Small -Exudate Type Serosanguineous -Wound Margin Distinct, Distinct, Outline Outline Attached Attached -Granulation Amt Large (67-100%) Medium (34-66%) -Granulation Quality Red Red -Necrosis Amt Small (1-33%) Medium (34-66%) -Necrotic Tissue Type Adherent Slough Adherent Slough -Texture (Sera-wound Skin Appearance) Assessed Assessed -Moisture (Sera-wound Skin Appearance) Assessed Assessed -Color (Sera-wound Skin Appearance) Assessed Assessed -Temperature (Sera-wound Skin No Abnormality Appearance) (Pt Warm) -Tenderness on Palpation (Sera-wound No No Skin Appearance) -Ulcer Cleansing Soap and Water Soap and Water -Foul Odor after Cleansing No No -Anesthetic Used 5% Lidocaine 5% Lidocaine Gel Gel WC - Nurse 2 - General Ulcer CM Notes Start: 04/15/24 10:36 Freq: Status: Active Protocol: Activity Type Activity Date Activity User E-sign Co-sign Detail Recorded Client Recorded Date Recorded By Document 04/15/24 11:13 [id number] 04/15/24 11:17 Document 04/22/24 11:16 [id number] 04/22/24 11:20 04/15/24 04/22/24 11:13 11:16 Wound Center Nurse 2 #6 LT BUTTOCK -Correct Patient No -Correct Side, Site, Position No -Correct Procedure No -Procedure Performed No -Post Debridement (cm) - Length 0 -Post Debridement (cm) - Width 0 -Total Square (Post) (cm) 0 -Area of Debridement (cm) - Length 0 -Area of Debridement (cm) - Width 0 -Total Square (Area) (cm) 0 -Wound/Ulcer Outcome Healed- Epithelialized 4-right side abd -Correct Patient No -Correct Side, Site, Position No -Correct Procedure No -Procedure Performed No -Post Debridement (cm) - Length 0 -Post Debridement (cm) - Width 0 -Post Debridement (cm) - Depth 0 -Total Square (Post) (cm) 0 -Area of Debridement (cm) - Length 0 -Area of Debridement (cm) - Width 0 -Total Square (Area) (cm) 0 -Wound/Ulcer Outcome Healed- Epithelialized 3-left side abd -Time 11:14 11:17 -Correct Patient Yes Yes -Correct Side, Site, Position Yes Yes -Correct Procedure Yes Yes -Procedure Performed Yes Yes -Type of Procedure Debridement Debridement -Clinical Debridement Subcutaneous Subcutaneous -Tissue Removed Subcutaneous Subcutaneous -Post Debridement (cm) - Length 1 1.2 -Post Debridement (cm) - Width 1 0.3 -Post Debridement (cm) - Depth 0.1 0.1 -Total Square (Post) (cm) 1 0.36 -Area of Debridement (cm) - Length 1 1.2 -Area of Debridement (cm) - Width 1 0.3 -Total Square (Area) (cm) 1 0.36 -Tunneling No No -Undermining/Tunneling No No -Circular Undermining No No -Wound/Ulcer Outcome Not Healed Not Healed -Ulcer Cleansing Rinsed/ Rinsed/ Irrigated with Irrigated with Saline Saline -Foul Odor after Cleansing No No -Bioengineered Tissue No No -Bleeding Controlled with Pressure Pressure -Treatment Response Procedure Procedure Tolerated Well Tolerated Well -Offloading No No -Debridement - Subq, 1st 20sq cm No No #2 ABD -Time 11:16 11:18 -Correct Patient Yes Yes -Correct Side, Site, Position Yes Yes -Correct Procedure Yes Yes -Procedure Performed Yes Yes -Type of Procedure Debridement Debridement -Clinical Debridement Subcutaneous Subcutaneous -Tissue Removed Subcutaneous Subcutaneous -Post Debridement (cm) - Length 3.0 2.5 -Post Debridement (cm) - Width 4.5 3.6 -Post Debridement (cm) - Depth 0.1 0.1 -Total Square (Post) (cm) 13.50 9.00 -Area of Debridement (cm) - Length 3.0 2.5 -Area of Debridement (cm) - Width 4.5 3.6 -Total Square (Area) (cm) 13.50 9.00 -Tunneling No No -Undermining/Tunneling No No -Circular Undermining No No -Wound/Ulcer Outcome Not Healed Not Healed -Ulcer Cleansing Rinsed/ Rinsed/ Irrigated with Irrigated with Saline Saline -Foul Odor after Cleansing No No -Bioengineered Tissue No No -Bleeding Controlled with Pressure Pressure -Treatment Response Procedure Procedure Tolerated Well Tolerated Well -Offloading No No -Debridement - Subq, 1st 20sq cm Yes Yes Pain Scale: 0-10 Numeric Is Patient Pain Free? Yes Yes - Nurse 3 - General Ulcer D/C NN Start: 04/15/24 10:36 Freq: Status: Active Protocol: Activity Type Activity Date Activity User E-sign Co-sign Detail Recorded Client Recorded Date Recorded By Document 04/15/24 11:28 [id number] 04/15/24 11:29 Document 04/15/24 11:37 [id number] 04/15/24 11:37 Document 04/22/24 11:25 [id number] 04/22/24 11:26 04/15/24 04/15/24 04/22/24 11:28 11:37 11:25 Wound Care Center Nurse 3 3-left side abd -Ulcer Cleansing Rinsed/ Irrigated with Saline -Foul Odor after Cleansing No -Primary Dressing Applied Silvercel -Other Dressing PT SILVER -Primary Dressing Covered/Secured with Dry Gauze, Dry Gauze, Secured with Secured with Tape Tape -Silvercel 0 #2 ABD -Ulcer Cleansing Rinsed/ Irrigated with Saline -Foul Odor after Cleansing No -Primary Dressing Applied Nugauze, Silvercel Iodoform 1/2in -Other Dressing SILVER -Primary Dressing Covered/Secured with Dry Gauze, Dry Gauze, Secured with Secured with Tape Tape -Nugauze, Iodoform 1/2in 1 -Silvercel 0 Pain Scale: 0-10 Numeric Is Patient Pain Free? Yes Yes Yes WC - Visit Discharge Discharge Condition Stable Stable Ambulatory Status Wheelchair Ambulatory, Wheelchair Transportation Private Auto Private Auto Medication Reconcilliation completed & No Yes provided to patient/care provider Clinical Summary of Care Provided Yes Yes Additional Wound Wound debrided: Left lateral abd skin fold Wound Grade/Stage: Stage III Type of Debridement: Excisional debridement Anesthesia Used: 5% Lidocaine Gel Depth: Down to and including healthy tissue and in the subcutaneous layer Percentage of wound debrided: 100 Instrument Used: 3mm curette Tissue Removed: Non viable tissue and slough Severity: Fat Layer Exposed Amount of bleeding with debridement: Mild Bleeding Controlled with: Pressure and Compression and gauze Patient tolerated procedure: Patient tolerated procedure well Assessment/Plan Assessment/Plan (1) Skin ulcer of abdominal wall with fat layer exposed: CODE(S): L98.492 - Non-pressure chronic ulcer of skin of other sites with fat layer exposed (2) Obesity: CODE(S): E66.9 - Obesity, unspecified QUALIFIERS: Obesity type: due to excess calories Obesity classification: adult class 3 (BMI >= 40) Serious obesity comorbidity presence: with serious comorbidity Body mass index: BMI 70 or greater Qualified Code(s): E66.01 - Morbid (severe) obesity due to excess calories; Z68.45 - Body mass index [BMI] 70 or greater, adult (3) Umbilicus discharge: CODE(S): R19.8 - Other specified symptoms and signs involving the digestive system and abdomen (4) Yeast infection of the skin: CODE(S): B37.2 - Candidiasis of skin and nail (5) Decubitus ulcer of left perineal ischial region, stage 2: CODE(S): L89.322 - Pressure ulcer of left buttock, stage 2 (6) Decubitus ulcer of right perineal ischial region, stage 2: CODE(S): L89.312 - Pressure ulcer of right buttock, stage 2 (7) Morbid obesity with BMI of 70 and over, adult: CODE(S): E66.01 - Morbid (severe) obesity due to excess calories; Z68.45 - Body mass index [BMI] 70 or greater, adult (8) Nonhealing skin ulcer: CODE(S): L98.499 - Non-pressure chronic ulcer of skin of other sites with unspecified severity QUALIFIERS: Non-pressure ulcer stage: with fat layer exposed Qualified Code(s): L98.492 - Non-pressure chronic ulcer of skin of other sites with fat layer exposed (9) Pre-diabetes: CODE(S): R73.03 - Prediabetes PLAN: Plan Patient evaluated at the wound healing center today. Wound care for the ulcers on left lateral abdomen and the lower abdomen/pannus area place Silvercel/silver alginate daily covered with gauze/ABD/[place] SAP ideally daily, but at least every other day, to these ulcers after washing with soap and water. Place barrier cream on the ischial areas twice daily and as needed. She may use Calmoseptine cream, Pinxav, or zinc oxide. Stressed off loading as much as possible. They are healed today, she needs to off load as much as possible to prevent them from returning. For her umbilicus, will continue placing a strip of 1/4 Iodoform gauze to help absorb the moisture and prevent maceration and skin rubbing against itself. She has home health to help her with her dressing changes 2-3 times per week. There has been an improvement in her ulcers with home health assisting her with her dressings. Her daughter helps her with her dressings on the days that she isn't seen by home health. Wound culture were collected [facility] and she was placed on Doxycycline prophylactically. The wound cultures were positive for Pseudomonas aeruginosa, Proteus mirabilis, and Corynebacterium striatum. These bacteria are not sensitive to the Doxycycline. She has finished the Levaquin to cover the Pseudomonas and Proteus. The Corynebacterium is skin contaminant. Reinforced to her to try and elevate her pannus on a pillow so that some of the swelling may decrease in the area that is most dependent. She had an ultrasound of her abdomen at [facility] and it showed an abdominal hernia. She states she was removed from bariatric surgery program and was referred to the obesity medicine which she saw last week. They have put her on Trulicity. She has not started it yet. She states that she tried taking this in the past and it made her sick. She states that she is not able to get enough protein intake and can not afford the protein supplements, therefore, she may not be a candidate for the bariatric surgery. I stressed the importance of increased protein intake for wound healing. The increased protein intake/supplementation is necessary no matter what treatment plan that she decides to have. She had CT of abdomen and Bill on 03/25/24. She brought in a copy of the results from her tiffanie. Impression of scan: No acute findings within the abdomen and pelvis. 3.3 cm right indeterminate renal lesion. Recommend evaluation with CT or MRI renal protocol. Bilateral nonobstructive renal calculi. Mildly enlarted bilateral inguinal lymph nodes which is nonspecific and may be reactive. 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 Exophytic lesions arising from the uterus measuring up to 6.1 cm most likely represent uterine fibroids. This could be further evaluated with MRI pelvis. I shared her CT results, which are scanned into our EMR with Dr. Ortega. He would like her to continue to try to decrease her BMI closer to 35 before considering a panniculectomy with her. I had an extensive conversation with her about her medication and being compliant. She was supposed to meet with the import/export specialist today but it got rescheduled. The import/export specialist did leave a sheet with the amount of protein that REMIGIO should be taking in each day and different sources of protein. REMIGIO is hesitant of staring her Trulicity back up as prescribed by endocrine because it made her nauseated in the past. She states that she previously was on the highest dose that she could be on and now they are starting her with the lowest dose. Her concern is she still will have nauseousness and she also has a fear of needles. I suggested that she phone the person who prescribed her Trulicity and have this conversation with to see if there is some other options that she could have to assist her to lose weight. She does state that she has lost 90 pounds over the past 18 months with being on Wellbutrin and metformin. Her dietary consult has been rescheduled to a later date for her non healing ulcers, pre diabetes and BMI of 72.1 She will follow up 2 weeks.
--- NOTE | 2024-04-22 13:17 | NS ---
04/22/24: Pt in wound center with her daughter today. RD learned daughter has COVID. RD will reschedule with pt at a different date. Had RN provide [facility] [employer] handout along with RD contact information. Dinorah Baca RDN, LD
== END 2024-05-06 23:59 | disposition home or self-care (01) ==
LOC: WC 10:30
PROVIDERS: PCP Preventive Medicine Occupational Medicine; Referring Provider Physician Assistant; Visit Provider Nurse Practitioner Family
DX: L98.492 Non-pressure chronic ulcer of skin of other sites with fat layer exposed (principal); L89.312 Pressure ulcer of right buttock, stage 2; L89.322 Pressure ulcer of left buttock, stage 2; E66.01 Morbid (severe) obesity due to excess calories; Z68.45 Body mass index [BMI] 70 or greater, adult; R26.2 Difficulty in walking, not elsewhere classified; R73.03 Prediabetes; R91.8 Other nonspecific abnormal finding of lung field; B37.2 Candidiasis of skin and nail; E03.9 Hypothyroidism, unspecified; Z79.899 Other long term (current) drug therapy
CPT/HCPCS: 11042; 97802

== ENCOUNTER 2024-06-03 09:00 | Outpatient (RCR) | payer MEDICAID, SELFPAY ==
[2024-05-07 00:10] VITALS: BP 163/76; PULSE 77; RESP 16; TEMP 36.1; O2SAT 98; BMI 72.0
[2024-05-13 10:26] VITALS: BP 160/48; PULSE 66; RESP 18; TEMP 35.8; BMI 72.0
--- NOTE | 2024-05-13 12:02 | PCM.WC.HP ---
History of Present Illness Date of Service: 05/13/24 Chief Complaint: Ulcer on abdomen and leaky belly button. History of Wound: Patient is a 48-year-old female who presented on her pannus. She states that it was just noticed 1 to 2 weeks ago. She is obese and has a difficult time walking due to knee pain. She is able to transfer to and from her wheelchair. She states she is still able to drive. She states that she was bathing a couple weeks ago and discovered this ulcer. She states that it does have drainage. She has been covering it with a disposable pad to absorb the drainage. She also states that she has issues with drainage from her umbilicus. It will sometimes have a strong odor and also will bleed on occasion. She states she has seen dermatology and a general surgeon about this and they stated there was not much to do for this. Dermatology has put her on Ketoconazole cream for rashes in skin folds, that she has not recently been using. While examining her it was discovered that she also has an ulcer on her right lateral abdomen and her left lateral abdomen in a skin fold. She states she has a hard time bathing herself due to the weight of her pannus. She has a history of hypothyroidism, pre diabetes, polycystic ovary, asthma, sleep apnea, an ulcer on her left lower leg, and right knee arthritis. [facility] culture [facility]/23 [facility] and was positive for Pseudomonas aeruginosa, Proteus mirabilis, and Corynebacterium striatum. She was treated with Doxycycline before the culture results were back. Will start her on Levaquin. She comes in today for further evaluation of her ulcer. She denies fever, chills, nausea or vomiting. Progress of Wound: The ulcer on the left lateral abdomen in the pannus skin fold is stable, the right lateral pannus skin fold ulcer reopened, they both are pink. Lower abdominal/pannus ulcer is pink and smaller in size. The ulcer is located in the most dependent portion of her pannus, there is edema present. Right ischial ulcer has reopened, it is pink and very superficial. She has been placing iodoform gauze into her umbilicus stalk to help absorb the drainage that is present. She now has home health assisting her with her dressing changes 2-3 times per week. PFSH Medical History (Updated 04/15/24 @ 12:49 by Gale Haddad DEPUTY INSURANCE COMMISSIONER, DEPUTY INSURANCE COMMISSIONER-C) Family history of vitamin B12 deficiency History of vitamin D deficiency History of thyroid disease History of polycystic ovarian disease History of osteoarthritis History of high cholesterol History of hypertension History of bladder infections History of back problems History of arthritis History of environmental allergies Pre-diabetes Pseudomonas aeruginosa infection Recent weight loss Pressure ulcer of other site, unspecified stage 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 Morbid obesity with BMI of 70 and over, adult Panniculitis Intertrigo Yeast infection of the skin Skin ulcer of abdominal wall with fat layer exposed Decubitus skin ulcer Abdominal pannus Bursitis, prepatellar, right Osteoarthritis of right knee Right knee pain Seasonal allergies Hyperlipidemia Depressive disorder Polycystic ovarian disease Hypothyroid Asthma KATEY (obstructive sleep apnea) HTN (hypertension) Home Medications ?Medication ?Instructions ?Recorded ?Last Taken ?Type metoprolol tartrate 50 mg tablet 100 mg PO BID 09/23/14 Unknown History cholecalciferol (vitamin D3) 25 10,000 unit PO DAILY 07/08/16 Unknown History mcg (1,000 unit) tablet norethindrone acetate 5 mg tablet 5 mg PO DAILY 07/08/16 Unknown History metformin 500 mg tablet 1,500 mg PO DAILY 11/02/17 Unknown History albuterol sulfate 90 mcg/actuation 2 puff inhalation Q6H PRN 11/07/17 Unknown Rx aerosol inhaler shortness of breath or wheezing #1 device diclofenac potassium 25 mg capsule 50 mg PO BID 11/07/17 Unknown History montelukast 10 mg tablet 10 mg PO DAILY #30 tabs 11/07/17 Unknown Rx cyanocobalamin (vitamin B-12) 1,000 mcg PO DAILY 12/14/19 Unknown History 1,000 mcg capsule cyclobenzaprine 10 mg tablet 10 mg PO TID PRN Muscle Spasm 12/14/19 Unknown History levothyroxine 50 mcg tablet 50 mcg PO DAILY 12/14/19 Unknown History pravastatin 40 mg tablet 40 mg PO DAILY 12/14/19 Unknown History loratadine 10 mg tablet (Allergy 10 mg PO DAILY 08/11/22 Unknown History Relief (loratadine)) bupropion HCl 75 mg tablet 75 mg PO ONCE 11/03/22 Unknown History mirabegron 25 mg tablet,extended 50 mg PO DAILY 11/03/22 Unknown History release 24 hr (Myrbetriq) naltrexone 50 mg tablet 50 mg PO DAILY 11/03/22 Unknown History valsartan 160 mg tablet (Diovan) 160 mg PO DAILY 11/03/22 Unknown History acetaminophen 650 mg 650 mg PO Q8H 05/05/23 Unknown History tablet,extended release lidocaine 5 % topical patch 1 patch topical DAILY 05/05/23 Unknown History promethazine-DM oral syrup ea PO 05/05/23 Unknown History mupirocin 2 % topical ointment 1 applic topical BID 05/30/23 Unknown History vitamin K2 100 mcg capsule 100 mcg PO DAILY 05/30/23 Unknown History doxycycline monohydrate 100 mg 100 mg PO BID #20 caps 09/12/23 Unknown Rx capsule levofloxacin 500 mg tablet 500 mg PO DAILY 14 days #14 tabs 10/11/23 Unknown Rx dapagliflozin propanediol 10 mg 10 mg PO DAILY 01/10/24 Unknown History tablet (Farxiga) diclofenac sodium 75 mg 75 mg PO BID 03/22/24 Unknown History tablet,delayed release loratadine 10 mg tablet (Allergy 10 mg PO DAILY 03/22/24 Unknown History Relief (loratadine)) metformin 500 mg tablet 500 mg PO DAILY 03/22/24 Unknown History tolnaftate 1 % topical spray 1 spray topical DAILY 03/22/24 Unknown History (Antifungal (tolnaftate)) nystatin 100,000 unit/gram topical 1 applic topical BID 30 days #60 04/10/24 Unknown Rx powder grams Allergy/AdvReac Type Severity Reaction Status Date / Time animal dander Allergy Mild Itching Verified 03/22/24 13:27 grass pollen Allergy Mild Itching Verified 03/22/24 13:27 dulaglutide (From [facility]) AdvReac Intermediate Nausea Verified 03/22/24 13:27 Family History Mother CVA (cerebral vascular accident) Asthma Diabetes Father Diabetes Hypertension Grandmother Heart disease Alcohol abuse Grandfather Cancer Surgical History History of tonsillectomy H/O adenoidectomy Social History (Updated 03/22/24 @ 13:25 by Dena Chaidez) Smoking Status: Never smoker alcohol intake: never substance use type: does not use additional social history: denies vaping, denies marijuana use, denies edibles, denies aspirin and ibuprofen use. Vital Signs Vital Signs Vital Signs: 05/13/24 10:26 Temperature 96.4 F L Temperature Source Temporal Pulse Rate 66 Respiratory Rate 18 Blood Pressure 160/48 H Blood Pressure Mean 85 Blood Pressure Source Monitor Blood Pressure Position Semi-Fowlers Blood Pressure Location Right Forearm Oxygen Delivery Method Room Air Weight Weight: 403 lb 0.009 oz Body Mass Index (BMI) 72.0 Debridement Note Debridement Note Wound debrided: Lower abdominal pannus Laterality: Not Applicable Wound Grade/Stage: Stage III Type of Debridement: Excisional debridement Anesthesia Used: 5% Lidocaine Gel Depth: Down to and including healthy tissue and in the subcutaneous layer Percentage of wound debrided: 100 Instrument Used: 7mm curette Tissue Removed: Non viable tissue and slough Severity: Fat Layer Exposed Amount of bleeding with debridement: Mild Bleeding Controlled with: Compression and gauze Patient tolerated procedure: Patient tolerated procedure well Post-Debridement Measurements and Additional Note: Post-Debridement Measurements/Treatment - Nurse 1 - General Ulcer Assessment Start: 05/13/24 10:24 Freq: Status: Active Protocol: [email or web address] Activity Type Activity Date Activity User E-sign Co-sign Detail Recorded Client Recorded Date Recorded By Document 05/13/24 10:26 [id number] 05/13/24 10:40 KW 05/13/24 10:26 - Today's Visit Information Type of service Follow-up Visit (Physician/COMPONENT ASSEMBLER SUPERVISOR ) Arrival Mode Wheelchair Patient Identification Verified (Name & Yes ) Height and Weight Body Mass Index (BMI) 72.0 BMI Classification Obese Vital Signs Temperature (97.8 F-99.1 F) 96.4 F L Temperature Source Temporal Pulse Rate (60-100) 66 Pulse Location Monitor Respiratory Rate (12-18) 18 Respiratory rate source Observation Oxygen Delivery Method Room Air Blood Pressure (90/60-120/80) 160/48 H Blood Pressure Mean 85 Source Monitor Position Semi-Fowlers Blood Pressure Location Right Forearm History Since Last Visit- (Skip if this is Patient's initial visit) Have you changed medications since your No last visit? Any new allergies or adverse reactions No Had a fall/change in ADL's that may No increase risk of falls Signs or symptoms of abuse and/or No neglect since last visit Have you been in the hospital since your No last visit? Has dressing in place as prescribed Yes Has compression in place as prescribed N/A Has offloadiing in place as prescribed N/A Experienced any changes in pain level or No management Left Footwear Regular Shoe Right Footwear Regular Shoe Pain Scale: 0-10 Numeric Is Patient Pain Free? Yes WC - Nurse 1 - General Ulcer Measurement Start: 05/13/24 10:24 Freq: Status: Active Protocol: Activity Type Activity Date Activity User E-sign Co-sign Detail Recorded Client Recorded Date Recorded By Document 05/13/24 10:26 KW [id number] 05/13/24 10:40 KW 05/13/24 10:26 Wound Center Nurse 1 3-left side abd -Current Size (cm) - Length 1 -Current Size (cm) - Width 1 -Current Size (cm) - Depth 0.1 -Total Square Cm 1 -Exudate Amt Small -Exudate Type Serosanguineous -Wound Margin Distinct, Outline Attached -Granulation Amt Large (67-100%) -Granulation Quality Red -Texture (Sera-wound Skin Appearance) Assessed -Moisture (Sera-wound Skin Appearance) Assessed -Color (Sera-wound Skin Appearance) Assessed -Temperature (Sera-wound Skin No Abnormality Appearance) (Pt Warm) -Tenderness on Palpation (Sera-wound No Skin Appearance) -Ulcer Cleansing Soap and Water -Foul Odor after Cleansing No -Anesthetic Used 5% Lidocaine Gel #2 ABD -Current Size (cm) - Length 1 -Current Size (cm) - Width 2.8 -Current Size (cm) - Depth 0.1 -Total Square Cm 2.8 -Exudate Amt Small -Exudate Type Serosanguineous -Wound Margin Distinct, Outline Attached -Granulation Amt Large (67-100%) -Granulation Quality Red -Necrosis Amt Small (1-33%) -Necrotic Tissue Type Adherent Slough -Texture (Sera-wound Skin Appearance) Assessed -Moisture (Sera-wound Skin Appearance) Assessed -Color (Sera-wound Skin Appearance) Assessed -Temperature (Sera-wound Skin No Abnormality Appearance) (Pt Warm) -Tenderness on Palpation (Sera-wound No Skin Appearance) -Ulcer Cleansing Soap and Water -Foul Odor after Cleansing No -Anesthetic Used 5% Lidocaine Gel WC - Nurse 2 - General Ulcer CM Notes Start: 05/13/24 10:24 Freq: Status: Active Protocol: Activity Type Activity Date Activity User E-sign Co-sign Detail Recorded Client Recorded Date Recorded By Document 05/13/24 11:09 JF [id number] 05/13/24 11:14 CARLA 05/13/24 11:09 Wound Center Nurse 2 4-right side abd -Time 11:13 -Correct Patient Yes -Correct Side, Site, Position Yes -Correct Procedure Yes -Procedure Performed Yes -Type of Procedure Debridement -Clinical Debridement Subcutaneous -Tissue Removed Subcutaneous -Post Debridement (cm) - Length 0.8 -Post Debridement (cm) - Width 1.3 -Post Debridement (cm) - Depth 0.1 -Total Square (Post) (cm) 1.04 -Area of Debridement (cm) - Length 0.8 -Area of Debridement (cm) - Width 1.3 -Total Square (Area) (cm) 1.04 -Tunneling No -Undermining/Tunneling No -Circular Undermining No -Wound/Ulcer Outcome Not Healed -Ulcer Cleansing Rinsed/ Irrigated with Saline -Foul Odor after Cleansing No -Bioengineered Tissue No -Bleeding Controlled with Pressure -Treatment Response Procedure Tolerated Well -Offloading No -Debridement - Subq, 1st 20sq cm Yes 3-left side abd -Time 11:10 -Correct Patient Yes -Correct Side, Site, Position Yes -Correct Procedure Yes -Procedure Performed Yes -Type of Procedure Debridement -Clinical Debridement Subcutaneous -Tissue Removed Subcutaneous -Post Debridement (cm) - Length 0.6 -Post Debridement (cm) - Width 1.0 -Post Debridement (cm) - Depth 0.1 -Total Square (Post) (cm) 0.60 -Area of Debridement (cm) - Length 0.6 -Area of Debridement (cm) - Width 1.0 -Total Square (Area) (cm) 0.60 -Tunneling No -Undermining/Tunneling No -Circular Undermining No -Wound/Ulcer Outcome Not Healed -Ulcer Cleansing Rinsed/ Irrigated with Saline -Foul Odor after Cleansing No -Bioengineered Tissue No -Bleeding Controlled with Pressure -Treatment Response Procedure Tolerated Well -Offloading No -Debridement - Subq, 1st 20sq cm No #2 ABD -Time 11:11 -Correct Patient Yes -Correct Side, Site, Position Yes -Correct Procedure Yes -Procedure Performed Yes -Type of Procedure Debridement -Clinical Debridement Subcutaneous -Tissue Removed Subcutaneous -Post Debridement (cm) - Length 3.0 -Post Debridement (cm) - Width 2.3 -Post Debridement (cm) - Depth 0.1 -Total Square (Post) (cm) 6.90 -Area of Debridement (cm) - Length 3.0 -Area of Debridement (cm) - Width 2.3 -Total Square (Area) (cm) 6.90 -Tunneling No -Circular Undermining No -Wound/Ulcer Outcome Not Healed -Ulcer Cleansing Rinsed/ Irrigated with Saline -Foul Odor after Cleansing No -Bioengineered Tissue No -Bleeding Controlled with Pressure -Treatment Response Procedure Tolerated Well -Offloading No -Debridement - Subq, 1st 20sq cm No Pain Scale: 0-10 Numeric Is Patient Pain Free? Yes - Nurse 3 - General Ulcer D/C NN Start: 05/13/24 10:24 Freq: Status: Active Protocol: Activity Type Activity Date Activity User E-sign Co-sign Detail Recorded Client Recorded Date Recorded By Document 05/13/24 11:25 [facility] [id number] 05/13/24 11:25 [facility] 05/13/24 11:25 Wound Care Center Nurse 3 4-right side abd -Ulcer Cleansing Rinsed/ Irrigated with Saline -Foul Odor after Cleansing No -Other Dressing silvercel -Primary Dressing Covered/Secured with Dry Gauze, Secured with Tape 3-left side abd -Ulcer Cleansing Rinsed/ Irrigated with Saline -Foul Odor after Cleansing No -Other Dressing silvercel -Primary Dressing Covered/Secured with Dry Gauze, Secured with Tape #2 ABD -Ulcer Cleansing Rinsed/ Irrigated with Saline -Foul Odor after Cleansing No -Other Dressing silvercel -Primary Dressing Covered/Secured with Dry Gauze, Secured with Tape Treatment Response Procedure Tolerated Well Pain Scale: 0-10 Numeric Is Patient Pain Free? Yes - Visit Discharge Discharge Condition Stable Ambulatory Status Wheelchair Facility Type Home Health Additional Wound Wound debrided: Left and right lateral abd skin fold Wound Grade/Stage: Stage III Type of Debridement: Excisional debridement Anesthesia Used: 5% Lidocaine Gel Depth: Down to and including healthy tissue and in the subcutaneous layer Percentage of wound debrided: 100 Instrument Used: 3mm curette Tissue Removed: Non viable tissue and slough Severity: Fat Layer Exposed Amount of bleeding with debridement: Mild Bleeding Controlled with: Pressure and Compression and gauze Patient tolerated procedure: Patient tolerated procedure well Charges/Coding Procedures Integumentary [id number]: [id number] Silvia subq tissue 20 sq cm/< Assessment/Plan Assessment/Plan (1) Skin ulcer of abdominal wall with fat layer exposed: CODE(S): L98.492 - Non-pressure chronic ulcer of skin of other sites with fat layer exposed (2) Obesity: CODE(S): E66.9 - Obesity, unspecified QUALIFIERS: Obesity type: due to excess calories Obesity classification: adult class 3 (BMI >= 40) Serious obesity comorbidity presence: with serious comorbidity Body mass index: BMI 70 or greater Qualified Code(s): E66.01 - Morbid (severe) obesity due to excess calories; Z68.45 - Body mass index [BMI] 70 or greater, adult (3) Umbilicus discharge: CODE(S): R19.8 - Other specified symptoms and signs involving the digestive system and abdomen (4) Yeast infection of the skin: CODE(S): B37.2 - Candidiasis of skin and nail (5) Decubitus ulcer of right perineal ischial region, stage 2: CODE(S): L89.312 - Pressure ulcer of right buttock, stage 2 (6) Morbid obesity with BMI of 70 and over, adult: CODE(S): E66.01 - Morbid (severe) obesity due to excess calories; Z68.45 - Body mass index [BMI] 70 or greater, adult (7) Nonhealing skin ulcer: CODE(S): L98.499 - Non-pressure chronic ulcer of skin of other sites with unspecified severity QUALIFIERS: Non-pressure ulcer stage: with fat layer exposed Qualified Code(s): L98.492 - Non-pressure chronic ulcer of skin of other sites with fat layer exposed (8) Pre-diabetes: CODE(S): R73.03 - Prediabetes PLAN: Plan Patient evaluated at the wound healing center today. Wound care for the ulcers on left and right lateral abdomen and the lower abdomen/pannus area place Silvercel/silver alginate daily covered with gauze/ABD/[place] SAP ideally daily, but at least every other day, to these ulcers after washing with soap and water. Place barrier cream on the ischial areas twice daily and as needed. She may use Calmoseptine cream, Pinxav, or zinc oxide. Stressed off loading as much as possible. They are healed today, she needs to off load as much as possible to prevent them from returning. For her umbilicus, will continue placing a strip of 1/4 Iodoform gauze to help absorb the moisture and prevent maceration and skin rubbing against itself. Stressed importance of not sitting for long periods of time. To make sure to get up and stand/walk around to off-load pressure to prevent pressure ulcers from sitting. She has home health to help her with her dressing changes 2-3 times per week. Wound culture were collected [facility] and she was placed on Doxycycline prophylactically. The wound cultures were positive for Pseudomonas aeruginosa, Proteus mirabilis, and Corynebacterium striatum. These bacteria are not sensitive to the Doxycycline. She has finished the Levaquin to cover the Pseudomonas and Proteus. The Corynebacterium is skin contaminant. Reinforced to her to try and elevate her pannus on a pillow so that some of the swelling may decrease in the area that is most dependent. She had an ultrasound of her abdomen at [facility] and it showed an abdominal hernia. She states she was removed from bariatric surgery program and was referred to the obesity medicine which she saw last week. They have put her on Trulicity. She has not started it yet. She states that she tried taking this in the past and it made her sick. She states that she is not able to get enough protein intake and can not afford the protein supplements, therefore, she may not be a candidate for the bariatric surgery. I stressed the importance of increased protein intake for wound healing. The increased protein intake/supplementation is necessary no matter what treatment plan that she decides to have. She had CT of abdomen and Bill on 03/25/24. She brought in a copy of the results from her tiffanie. Impression of scan: No acute findings within the abdomen and pelvis. 3.3 cm right indeterminate renal lesion. Recommend evaluation with CT or MRI renal protocol. Bilateral nonobstructive renal calculi. Mildly enlarted bilateral inguinal lymph nodes which is nonspecific and may be reactive. 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 Exophytic lesions arising from the uterus measuring up to 6.1 cm most likely represent uterine fibroids. This could be further evaluated with MRI pelvis. I shared her CT results, which are scanned into our EMR with Dr. Ortega. He would like her to continue to try to decrease her BMI closer to 35 before considering a panniculectomy with her. I had an extensive conversation with her about her medication and being compliant. She was supposed to meet with the historical guide today but it got rescheduled. The historical guide did leave a sheet with the amount of protein that REMIGIO should be taking in each day and different sources of protein. REMIGIO is hesitant of staring her Trulicity back up as prescribed by endocrine because it made her nauseated in the past. She states that she previously was on the highest dose that she could be on and now they are starting her with the lowest dose. Her concern is she still will have nauseousness and she also has a fear of needles. I suggested that she phone the person who prescribed her Trulicity and have this conversation with to see if there is some other options that she could have to assist her to lose weight. She does state that she has lost 90 pounds over the past 18 months with being on Wellbutrin and metformin. Her dietary consult has been rescheduled to a later date for her non healing ulcers, pre diabetes and BMI of 72.1 She will follow up 2 weeks.
--- NOTE | 2024-05-16 16:15 | NS ---
05/16/24: Received voicemail from patient on 05/15 stating that she met with a kidney specialist and she has stage 4-5 kidney disease. This RDN emailed the patient the following along with attached handouts for [facility] and [facility] Chronic Kidney Disease Stage 3-5 Nutrition Therapy. Hi REMIGIO, I got your voicemail yesterday. I'm sorry to hear that your kidney function isn't doing well. I see that your next appointment at the wound center is May 30. Unfortunately, I have a meeting that day and won't be able to follow-up with you at that time.? I attached some handouts for you that talk about chronic kidney disease. The main focus at this time would be to limit your intake of salt. You should avoid adding any type of salt to your foods. You can use products like . Owen or other herbs to add flavor to the foods you are eating. Foods from restaurants and gas stations also tend to be high in sodium. I attached a handout called [facility] that can help provide you with lower sodium foods to choose when going out to eat. Also, with chronic kidney disease, we need to limit protein intake, because the digestion of protein can make the kidneys work harder. I know that you have a wound that we are also trying to heal up which normally requires higher intake of protein. I would recommend between 65-80 grams of protein intake daily. If you would like, we could just do a phone call follow-up in the next week or two to review and discuss this information. Call [phone] so that we can set this up. I was also wondering what kidney doctor you met with the other day. I would like to be able to see your lab work results to help give you better nutritional guidance. Dinorah Baca RDN, LD
[2024-05-27 08:39] VITALS: BP 146/90; PULSE 82; RESP 18; TEMP 35.6; BMI 72.0
--- NOTE | 2024-05-27 11:05 | PN.PCM_ITS ---
History of Present Illness Date of Service: 05/27/24 Chief Complaint: Ulcer on abdomen and leaky belly button. History of Wound: Patient is a 48-year-old female who presented on her pannus. She states that it was just noticed 1 to 2 weeks ago. She is obese and has a difficult time walking due to knee pain. She is able to transfer to and from her wheelchair. She states she is still able to drive. She states that she was bathing a couple weeks ago and discovered this ulcer. She states that it does have drainage. She has been covering it with a disposable pad to absorb the drainage. She also states that she has issues with drainage from her umbilicus. It will sometimes have a strong odor and also will bleed on occasion. She states she has seen dermatology and a general surgeon about this and they stated there was not much to do for this. Dermatology has put her on Ketoconazole cream for rashes in skin folds, that she has not recently been using. While examining her it was discovered that she also has an ulcer on her right lateral abdomen and her left lateral abdomen in a skin fold. She states she has a hard time bathing herself due to the weight of her pannus. She has a history of hypothyroidism, pre diabetes, polycystic ovary, asthma, sleep apnea, an ulcer on her left lower leg, and right knee arthritis. [facility]ound culture [facility]/23 at [facility] and was positive for Pseudomonas aeruginosa, Proteus mirabilis, and Corynebacterium striatum. She was treated Doxycycline before the culture results were back. Will start her on Levaquin. She comes in today for further evaluation of her ulcer. She denies fever, chills, nausea or vomiting. Progress of Wound: The ulcer on the left lateral abdomen in the pannus skin fold is healed today. The right lateral pannus skin fold ulcer is stable and beefy pink ulcer bed. Lower abdominal/pannus ulcer is pink and smaller in size. The ulcer is located in the most dependent portion of her pannus, there is edema present. Right ischial ulcer is healed per the patient. Objective Data Objective Data Vital Signs: Vital Signs Temp Pulse Resp BP Pulse Ox O2 Del Method 96.1 F L 82 18 146/90 H 98 Room Air 05/27/24 08:39 05/27/24 08:39 05/27/24 08:39 05/27/24 08:39 05/07/24 00:10 05/27/24 08:39 Oxygen Delivery Method Room Air Weight: 403 lb 0.009 oz Body Mass Index (BMI) 72.0 Charges/Coding Procedures Integumentary 111xxx-113xx: [id number] Silvia subq tissue 20 sq cm/< Debridement Note Debridement Note Wound debrided: Lower abdominal pannus Laterality: Not Applicable Wound Grade/Stage: Stage III Type of Debridement: Excisional debridement Anesthesia Used: 5% Lidocaine Gel Depth: Down to and including healthy tissue and in the subcutaneous layer Percentage of wound debrided: 100 Instrument Used: 5mm curette Tissue Removed: Non viable tissue and slough Severity: Fat Layer Exposed Amount of bleeding with debridement: Mild Bleeding Controlled with: Compression and gauze Patient tolerated procedure: Patient tolerated procedure well Post-Debridement Measurements and Additional Note: Post-Debridement Measurements/Treatment - Nurse 1 - General Ulcer Assessment Start: 05/13/24 10:24 Freq: Status: Active Protocol: BALDEMAR Activity Type Activity Date Activity User E-sign Co-sign Detail Recorded Client Recorded Date Recorded By Document 05/13/24 10:26 KW [id number] 05/13/24 10:40 KW Document 05/27/24 08:39 KW [id number] 05/27/24 08:53 KW 05/13/24 05/27/24 10:26 08:39 - Today's Visit Information Type of service Follow-up Visit Follow-up Visit (Physician/REMEDIATION CONSULTANT (Physician/REMEDIATION CONSULTANT ) ) Arrival Mode Wheelchair Wheelchair Patient Identification Verified (Name & Yes Yes ) Height and Weight Body Mass Index (BMI) 72.0 72.0 BMI Classification Obese Obese Vital Signs Temperature (97.8 F-99.1 F) 96.4 F L 96.1 F L Temperature Source Temporal Temporal Pulse Rate (60-100) 66 82 Pulse Location Monitor Monitor Respiratory Rate (12-18) 18 18 Respiratory rate source Observation Observation Oxygen Delivery Method Room Air Room Air Blood Pressure (90/60-120/80) 160/48 H 146/90 H Blood Pressure Mean (mm Hg) 85 108 Source Monitor Monitor Position Semi-Fowlers Semi-Fowlers Blood Pressure Location Right Forearm Left Arm History Since Last Visit- (Skip if this is Patient's initial visit) Have you changed medications since your No No last visit? Any new allergies or adverse reactions No No Had a fall/change in ADL's that may No No increase risk of falls Signs or symptoms of abuse and/or No No neglect since last visit Have you been in the hospital since your No No last visit? Has dressing in place as prescribed Yes Yes Has compression in place as prescribed N/A N/A Has offloadiing in place as prescribed N/A N/A Experienced any changes in pain level or No No management Left Footwear Regular Shoe Regular Shoe Right Footwear Regular Shoe Regular Shoe Pain Scale: 0-10 Numeric Is Patient Pain Free? Yes Yes WC - Nurse 1 - General Ulcer Measurement Start: 05/13/24 10:24 Freq: Status: Active Protocol: Activity Type Activity Date Activity User E-sign Co-sign Detail Recorded Client Recorded Date Recorded By Document 05/13/24 10:26 KW [id number] 05/13/24 10:40 KW Document 05/27/24 08:39 KW [id number] 05/27/24 08:53 KW 05/13/24 05/27/24 10:26 08:39 Wound Center Nurse 1 3-left side abd -Current Size (cm) - Length 1 0 -Current Size (cm) - Width 1 0 -Current Size (cm) - Depth 0.1 0 -Total Square Cm 1 0 -Exudate Amt Small -Exudate Type Serosanguineous -Wound Margin Distinct, Outline Attached -Granulation Amt Large (67-100%) -Granulation Quality Red -Texture (Sera-wound Skin Appearance) Assessed Assessed -Moisture (Sera-wound Skin Appearance) Assessed Assessed -Color (Sera-wound Skin Appearance) Assessed Assessed -Temperature (Sera-wound Skin No Abnormality Appearance) (Pt Warm) -Tenderness on Palpation (Sera-wound No Skin Appearance) -Ulcer Cleansing Soap and Water -Foul Odor after Cleansing No -Anesthetic Used 5% Lidocaine Gel 4-right side abd -Current Size (cm) - Length 0.5 -Current Size (cm) - Width 0.7 -Current Size (cm) - Depth 0.1 -Total Square Cm 0.35 -Exudate Amt Small -Exudate Type Serosanguineous -Wound Margin Distinct, Outline Attached -Granulation Amt Large (67-100%) -Granulation Quality Red -Texture (Sera-wound Skin Appearance) Assessed -Moisture (Sera-wound Skin Appearance) Assessed -Color (Sera-wound Skin Appearance) Assessed -Temperature (Sera-wound Skin No Abnormality Appearance) (Pt Warm) -Tenderness on Palpation (Sera-wound No Skin Appearance) -Ulcer Cleansing Soap and Water -Foul Odor after Cleansing No -Anesthetic Used 5% Lidocaine Gel #2 ABD -Current Size (cm) - Length 1 2 -Current Size (cm) - Width 2.8 1.5 -Current Size (cm) - Depth 0.1 0.1 -Total Square Cm 2.8 3.0 -Epithelialization Large 67-100% -Exudate Amt Small Small -Exudate Type Serosanguineous Serosanguineous -Wound Margin Distinct, Distinct, Outline Outline Attached Attached -Granulation Amt Large (67-100%) Large (67-100%) -Granulation Quality Red [place],Red -Necrosis Amt Small (1-33%) -Necrotic Tissue Type Adherent Slough -Texture (Sera-wound Skin Appearance) Assessed Assessed, Scarring -Moisture (Sera-wound Skin Appearance) Assessed Assessed -Color (Sera-wound Skin Appearance) Assessed Assessed -Temperature (Sera-wound Skin No Abnormality No Abnormality Appearance) (Pt Warm) (Pt Warm) -Tenderness on Palpation (Sera-wound No No Skin Appearance) -Ulcer Cleansing Soap and Water Soap and Water -Foul Odor after Cleansing No No -Anesthetic Used 5% Lidocaine 5% Lidocaine Gel Gel WC - Nurse 2 - General Ulcer CM Notes Start: 05/13/24 10:24 Freq: Status: Active Protocol: Activity Type Activity Date Activity User E-sign Co-sign Detail Recorded Client Recorded Date Recorded By Document 05/13/24 11:09 JF [id number] 05/13/24 11:14 Document 05/27/24 09:04 JF [id number] 05/27/24 09:06 05/13/24 05/27/24 11:09 09:04 Wound Center Nurse 2 3-left side abd -Time 11:10 -Correct Patient Yes No -Correct Side, Site, Position Yes No -Correct Procedure Yes No -Procedure Performed Yes No -Type of Procedure Debridement -Clinical Debridement Subcutaneous -Tissue Removed Subcutaneous -Post Debridement (cm) - Length 0.6 0 -Post Debridement (cm) - Width 1.0 0 -Post Debridement (cm) - Depth 0.1 0 -Total Square (Post) (cm) 0.60 0 -Area of Debridement (cm) - Length 0.6 0 -Area of Debridement (cm) - Width 1.0 0 -Total Square (Area) (cm) 0.60 0 -Tunneling No -Undermining/Tunneling No -Circular Undermining No -Wound/Ulcer Outcome Not Healed Healed- Epithelialized -Ulcer Cleansing Rinsed/ Irrigated with Saline -Foul Odor after Cleansing No -Bioengineered Tissue No -Bleeding Controlled with Pressure -Treatment Response Procedure Tolerated Well -Offloading No -Debridement - Subq, 20sq cm No 4-right side abd -Time 11:13 -Correct Patient Yes Yes -Correct Side, Site, Position Yes Yes -Correct Procedure Yes Yes -Procedure Performed Yes Yes -Type of Procedure Debridement Debridement -Clinical Debridement Subcutaneous Subcutaneous -Tissue Removed Subcutaneous Subcutaneous -Post Debridement (cm) - Length 0.8 0.6 -Post Debridement (cm) - Width 1.3 1.0 -Post Debridement (cm) - Depth 0.1 0.1 -Total Square (Post) (cm) 1.04 0.60 -Area of Debridement (cm) - Length 0.8 0.6 -Area of Debridement (cm) - Width 1.3 1.0 -Total Square (Area) (cm) 1.04 0.60 -Tunneling No No -Undermining/Tunneling No No -Circular Undermining No No -Wound/Ulcer Outcome Not Healed Not Healed -Ulcer Cleansing Rinsed/ Rinsed/ Irrigated with Irrigated with Saline Saline -Foul Odor after Cleansing No No -Bioengineered Tissue No No -Bleeding Controlled with Pressure Pressure -Treatment Response Procedure Procedure Tolerated Well Tolerated Well -Offloading No No -Debridement - Subq, 20sq cm Yes Yes #2 ABD -Time 11:11 09:06 -Correct Patient Yes Yes -Correct Side, Site, Position Yes Yes -Correct Procedure Yes Yes -Procedure Performed Yes Yes -Type of Procedure Debridement Debridement -Clinical Debridement Subcutaneous Subcutaneous -Tissue Removed Subcutaneous Subcutaneous -Post Debridement (cm) - Length 3.0 2.0 -Post Debridement (cm) - Width 2.3 1.3 -Post Debridement (cm) - Depth 0.1 0.2 -Total Square (Post) (cm) 6.90 2.60 -Area of Debridement (cm) - Length 3.0 2.0 -Area of Debridement (cm) - Width 2.3 1.3 -Total Square (Area) (cm) 6.90 2.60 -Tunneling No No -Undermining/Tunneling No -Circular Undermining No No -Wound/Ulcer Outcome Not Healed -Ulcer Cleansing Rinsed/ Rinsed/ Irrigated with Irrigated with Saline Saline -Foul Odor after Cleansing No No -Bioengineered Tissue No No -Bleeding Controlled with Pressure Pressure -Treatment Response Procedure Procedure Tolerated Well Tolerated Well -Offloading No No -Debridement - Subq, 1st 20sq cm No No Pain Scale: 0-10 Numeric Is Patient Pain Free? Yes Yes - Nurse 3 - General Ulcer D/C NN Start: 05/13/24 10:24 Freq: Status: Active Protocol: Activity Type Activity Date Activity User E-sign Co-sign Detail Recorded Client Recorded Date Recorded By Document 05/13/24 11:25 [facility] [id number] 05/13/24 11:25 [facility] Document 05/27/24 09:14 [id number] 05/27/24 09:14 05/13/24 05/27/24 11:25 09:14 Wound Care Center Nurse 3 3-left side abd -Ulcer Cleansing Rinsed/ Irrigated with Saline -Foul Odor after Cleansing No -Other Dressing silvercel -Primary Dressing Covered/Secured with Dry Gauze, Secured with Tape 4-right side abd -Ulcer Cleansing Rinsed/ Irrigated with Saline -Foul Odor after Cleansing No -Other Dressing silvercel pt own silver -Primary Dressing Covered/Secured with Dry Gauze, Dry Gauze, Secured with Secured with Tape Tape #2 ABD -Ulcer Cleansing Rinsed/ Irrigated with Saline -Foul Odor after Cleansing No -Other Dressing silvercel pt own silver -Primary Dressing Covered/Secured with Dry Gauze, Dry Gauze, Secured with Secured with Tape Tape Treatment Response Procedure Tolerated Well Pain Scale: 0-10 Numeric Is Patient Pain Free? Yes Yes - Visit Discharge Discharge Condition Stable Ambulatory Status Wheelchair Facility Type Home Health Additional Wound Wound debrided: Right lateral abd skin fold Wound Grade/Stage: Stage III Type of Debridement: Excisional debridement Anesthesia Used: 5% Lidocaine Gel Depth: Down to and including healthy tissue and in the subcutaneous layer Percentage of wound debrided: 100 Instrument Used: 3mm curette Tissue Removed: Non viable tissue and slough Severity: Fat Layer Exposed Amount of bleeding with debridement: Mild Bleeding Controlled with: Pressure and Compression and gauze Patient tolerated procedure: Patient tolerated procedure well Assessment/Plan Assessment/Plan (1) Skin ulcer of abdominal wall with fat layer exposed: CODE(S): L98.492 - Non-pressure chronic ulcer of skin of other sites with fat layer exposed (2) Obesity: CODE(S): E66.9 - Obesity, unspecified QUALIFIERS: Obesity type: due to excess calories Obesity classification: adult class 3 (BMI >= 40) Serious obesity comorbidity presence: with serious comorbidity Body mass index: BMI 70 or greater Qualified Code(s): E66.01 - Morbid (severe) obesity due to excess calories; Z68.45 - Body mass index [BMI] 70 or greater, adult (3) Umbilicus discharge: CODE(S): R19.8 - Other specified symptoms and signs involving the digestive system and abdomen (4) Yeast infection of the skin: CODE(S): B37.2 - Candidiasis of skin and nail (5) Decubitus ulcer of right perineal ischial region, stage 2: CODE(S): L89.312 - Pressure ulcer of right buttock, stage 2 (6) Morbid obesity with BMI of 70 and over, adult: CODE(S): E66.01 - Morbid (severe) obesity due to excess calories; Z68.45 - Body mass index [BMI] 70 or greater, adult (7) Nonhealing skin ulcer: CODE(S): L98.499 - Non-pressure chronic ulcer of skin of other sites with unspecified severity QUALIFIERS: Non-pressure ulcer stage: with fat layer exposed Qualified Code(s): L98.492 - Non-pressure chronic ulcer of skin of other sites with fat layer exposed (8) Pre-diabetes: CODE(S): R73.03 - Prediabetes PLAN: Plan Patient evaluated at the wound healing center today. Wound care for the ulcers on right lateral abdomen and the lower abdomen/pannus area place Silvercel/silver alginate daily covered with gauze/ABD/Edelstein SAP ideally daily, but at least every other day, to these ulcers after washing with soap and water. She would benefit from an advanced wound healing product to her lower abdomen/pannus chronic ulcer to help expedite the wound healing process. Epifix would be very beneficial to helping her heal this ulcer. Place barrier cream on the ischial areas twice daily and as needed to keep this area healed. She may use Calmoseptine cream, Pinxav, or zinc oxide. Stressed off loading as much as possible. They are healed today, she needs to off load as much as possible to prevent them from returning. For her umbilicus, will continue placing a strip of 1/4 Iodoform gauze to help absorb the moisture and prevent maceration and skin rubbing against itself. Stressed importance of not sitting for long periods of time. To make sure to get up and stand/walk around to off-load pressure to prevent pressure ulcers from sitting. She has home health to help her with her dressing changes 2-3 times per week. Wound culture were collected [facility] and she was placed on Doxycycline prophylactically. The wound cultures were positive for Pseudomonas aeruginosa, Proteus mirabilis, and Corynebacterium striatum. These bacteria are not sensitive to the Doxycycline. She has finished the Levaquin to cover the Pseudomonas and Proteus. The Corynebacterium is skin contaminant. Reinforced to her to try and elevate her pannus on a pillow so that some of the swelling may decrease in the area that is most dependent. She had an ultrasound of her abdomen at [facility] and it showed an abdo mariajose hernia. She states she was removed from bariatric surgery program and was referred to the obesity medicine which she saw last week. They have put her on Trulicity. She has not started it yet. She states that she tried taking this in the past and it made her sick. She states that she is not able to get enough protein intake and can not afford the protein supplements, therefore, she may not be a candidate for the bariatric surgery. I stressed the importance of increased protein intake for wound healing. The increased protein intake/supplementation is necessary no matter what treatment plan that she decides to have. She had CT of abdomen and Bill on 03/25/24. She brought in a copy of the results from her tiffanie. Impression of scan: No acute findings within the abdomen and pelvis. 3.3 cm right indeterminate renal lesion. Recommend evaluation with CT or MRI renal protocol. Bilateral nonobstructive renal calculi. Mildly enlarted bilateral inguinal lymph nodes which is nonspecific and may be reactive. 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 Exophytic lesions arising from the uterus measuring up to 6.1 cm most likely represent uterine fibroids. This could be further evaluated with MRI pelvis. I shared her CT results, which are scanned into our EMR with Dr. Ortega. He would like her to continue to try to decrease her BMI closer to 35 before considering a panniculectomy with her. I had an extensive conversation with her about her medication and being compliant. She was supposed to meet with the regulatory affairs analyst today but it got rescheduled. The regulatory affairs analyst did leave a sheet with the amount of protein that REMIGIO should be taking in each day and different sources of protein. REMIGIO is hesitant of staring her Trulicity back up as prescribed by endocrine because it made her nauseated in the past. She states that she previously was on the highest dose that she could be on and now they are starting her with the lowest dose. Her concern is she still will have nauseousness and she also has a fear of needles. I suggested that she phone the person who prescribed her Trulicity and have this conversation with to see if there is some other options that she could have to assist her to lose weight. She does state that she has lost 90 pounds over the past 18 months with being on Wellbutrin and metformin. Her dietary consult has been rescheduled to a later date for her non healing ulcers, pre diabetes and BMI of 72.1 She will follow up 1 week.
[2024-06-03 08:47] VITALS: BP 177/82; PULSE 79; RESP 16; TEMP 35.2; BMI 72.0
--- NOTE | 2024-06-03 12:03 | PN.PCM_ITS ---
History of Present Illness Date of Service: 06/03/24 Chief Complaint: Ulcer on abdomen and leaky belly button. History of Wound: Patient is a 48-year-old female who presented on her pannus. She states that it was just noticed 1 to 2 weeks ago. She is obese and has a difficult time walking due to knee pain. She is able to transfer to and from her wheelchair. She states she is still able to drive. She states that she was bathing a couple weeks ago and discovered this ulcer. She states that it does have drainage. She has been covering it with a disposable pad to absorb the drainage. She also states that she has issues with drainage from her umbilicus. It will sometimes have a strong odor and also will bleed on occasion. She states she has seen dermatology and a general surgeon about this and they stated there was not much to do for this. Dermatology has put her on Ketoconazole cream for rashes in skin folds, that she has not recently been using. While examining her it was discovered that she also has an ulcer on her right lateral abdomen and her left lateral abdomen in a skin fold. She states she has a hard time bathing herself due to the weight of her pannus. She has a history of hypothyroidism, pre diabetes, polycystic ovary, asthma, sleep apnea, an ulcer on her left lower leg, and right knee arthritis. Wound culture [facility] 09/12/23 at [facility] and was positive for Pseudomonas aeruginosa, Proteus mirabilis, and Corynebacterium striatum. She was treated wi Doxycycline before the culture results were back. Will start her on Levaquin. She comes in today for further evaluation of her ulcer. She denies fever, chills, nausea or vomiting. Progress of Wound: The ulcer on the left lateral abdomen in the pannus skin fold has reopened. The right lateral pannus skin fold ulcer is stable and beefy pink ulcer bed. Lower abdominal/pannus ulcer is pink and slightly smaller in size. The ulcer is located in the most dependent portion of her pannus, there is edema present. We are still waiting for approval from her insurance company for Epifix approval for the lower pannus ulcer. Objective Data Objective Data Vital Signs: Vital Signs Temp Pulse Resp BP Pulse Ox O2 Del Method 95.4 F L 79 16 177/82 H 98 Room Air 06/03/24 08:47 10/28/24 08:47 06/03/24 08:47 06/03/24 08:47 05/07/24 00:10 06/03/24 08:47 Oxygen Delivery Method Room Air Weight: 403 lb 0.009 oz Body Mass Index (BMI) 72.0 Charges/Coding Procedures Integumentary 111xxx-113xx: [id number] Silvia subq tissue 20 sq cm/< Debridement Note Debridement Note Wound debrided: Lower abdominal pannus Laterality: Not Applicable Wound Grade/Stage: Stage III Type of Debridement: Excisional debridement Anesthesia Used: 5% Lidocaine Gel Depth: Down to and including healthy tissue and in the subcutaneous layer Percentage of wound debrided: 100 Instrument Used: 5mm curette Tissue Removed: Non viable tissue and slough Severity: Fat Layer Exposed Amount of bleeding with debridement: Mild Bleeding Controlled with: Compression and gauze Patient tolerated procedure: Patient tolerated procedure well Post-Debridement Measurements and Additional Note: Post-Debridement Measurements/Treatment - Nurse 1 - General Ulcer Assessment Start: 05/13/24 10:24 Freq: Status: Active Protocol: BALDEMAR Activity Type Activity Date Activity User E-sign Co-sign Detail Recorded Client Recorded Date Recorded By Document 05/13/24 10:26 KW [id number] 05/13/24 10:40 KW Document 05/27/24 08:39 KW [id number] 05/27/24 08:53 KW Document 06/03/24 08:47 [facility] [id number] 06/03/24 08:53 BM 05/13/24 05/27/24 06/03/24 10:26 08:39 08:47 - Today's Visit Information Type of service Follow-up Visit Follow-up Visit Follow-up Visit (Physician/SHIPMASTER (Physician/SHIPMASTER (Physician/SHIPMASTER ) ) ) Arrival Mode Wheelchair Wheelchair Wheelchair Transfer Assistance None Accompanied by Patient Identification Verified (Name & Yes Yes Yes ) Patient Requires Transmission-Based No Precautions Height and Weight Body Mass Index (BMI) 72.0 72.0 72.0 BMI Classification Obese Obese Obese Vital Signs Temperature (97.8 F-99.1 F) 96.4 F L 96.1 F L 95.4 F L Temperature Source Temporal Temporal Temporal Pulse Rate (60-100) 66 82 79 Pulse Location Monitor Monitor Monitor Respiratory Rate (12-18) 18 18 16 Respiratory rate source Observation Observation Observation Oxygen Delivery Method Room Air Room Air Room Air Blood Pressure (90/60-120/80) 160/48 H 146/90 H 177/82 H Blood Pressure Mean (mm Hg) 85 108 113 Source Monitor Monitor Monitor Position Semi-Fowlers Semi-Fowlers Sitting Blood Pressure Location Right Forearm Left Arm Right Forearm History Since Last Visit- (Skip if this is Patient's initial visit) Have you changed medications since your No No No last visit? Any new allergies or adverse reactions No No No Had a fall/change in ADL's that may No No No increase risk of falls Signs or symptoms of abuse and/or No No No neglect since last visit Have you been in the hospital since your No No No last visit? Has dressing in place as prescribed Yes Yes Yes Has compression in place as prescribed N/A N/A N/A Has offloadiing in place as prescribed N/A N/A N/A Experienced any changes in pain level or No No No management Left Footwear Regular Shoe Regular Shoe Regular Shoe Right Footwear Regular Shoe Regular Shoe Regular Shoe Pain Scale: 0-10 Numeric Is Patient Pain Free? Yes Yes Yes WC - Nurse 1 - General Ulcer Measurement Start: 05/13/24 10:24 Freq: Status: Active Protocol: Activity Type Activity Date Activity User E-sign Co-sign Detail Recorded Client Recorded Date Recorded By Document 05/13/24 10:26 KW [id number] 05/13/24 10:40 KW Document 05/27/24 08:39 KW [id number] 05/27/24 08:53 KW Document 06/03/24 08:47 [facility] [id number] 06/03/24 08:53 [facility] 05/13/24 05/27/24 06/03/24 10:26 08:39 08:47 Wound Center Nurse 1 4-right side abd -Combined with other wound No -Current Size (cm) - Length 0.5 0.5 -Current Size (cm) - Width 0.7 0.5 -Current Size (cm) - Depth 0.1 0.1 -Total Square Cm 0.35 0.25 -Photo Taken No -Epithelialization Small 1-33% -Tunneling No -Undermining/Tunneling No -Circular Undermining No -Exudate Amt Small Medium -Exudate Type Serosanguineous Serosanguineous -Wound Margin Distinct, Flat & Intact Outline Attached -Granulation Amt Large (67-100%) Large (67-100%) -Granulation Quality Red Red -Slough/Fibrin No -Necrosis Amt None Present (0 %) -Texture (Sera-wound Skin Appearance) Assessed Assessed, Scarring -Moisture (Sera-wound Skin Appearance) Assessed Assessed -Color (Sera-wound Skin Appearance) Assessed Assessed -Temperature (Sera-wound Skin No Abnormality No Abnormality Appearance) (Pt Warm) (Pt Warm) -Tenderness on Palpation (Sera-wound No No Skin Appearance) -Ulcer Cleansing Soap and Water Soap and Water -Foul Odor after Cleansing No No -Anesthetic Used 5% Lidocaine 5% Lidocaine Gel Gel 3-left side abd -Combined with other wound No -Current Size (cm) - Length 1 0 0.5 -Current Size (cm) - Width 1 0 0.5 -Current Size (cm) - Depth 0.1 0 0.2 -Total Square Cm 1 0 0.25 -Epithelialization None Present -Tunneling No -Undermining/Tunneling No -Circular Undermining No -Exudate Amt Small Medium -Exudate Type Serosanguineous Serosanguineous -Wound Margin Distinct, Flat & Intact Outline Attached -Granulation Amt Large (67-100%) Large (67-100%) -Granulation Quality Red Red -Slough/Fibrin No -Necrosis Amt None Present (0 %) -Texture (Sera-wound Skin Appearance) Assessed Assessed Assessed, Scarring -Moisture (Sera-wound Skin Appearance) Assessed Assessed Assessed -Color (Sera-wound Skin Appearance) Assessed Assessed Assessed -Temperature (Sera-wound Skin No Abnormality No Abnormality Appearance) (Pt Warm) (Pt Warm) -Tenderness on Palpation (Sera-wound No No Skin Appearance) -Ulcer Cleansing Soap and Water Soap and Water -Foul Odor after Cleansing No No -Anesthetic Used 5% Lidocaine 5% Lidocaine Gel Gel #2 ABD -Combined with other wound No -Current Size (cm) - Length 1 2 1.1 -Current Size (cm) - Width 2.8 1.5 1 -Current Size (cm) - Depth 0.1 0.1 0.1 -Total Square Cm 2.8 3.0 1.1 -Photo Taken No -Epithelialization Large 67-100% Medium 34-66% -Tunneling No -Undermining/Tunneling No -Circular Undermining No -Exudate Amt Small Small Medium -Exudate Type Serosanguineous Serosanguineous Serosanguineous -Wound Margin Distinct, Distinct, Flat & Intact Outline Outline Attached Attached -Granulation Amt Large (67-100%) Large (67-100%) Large (67-100%) -Granulation Quality [place] -Slough/Fibrin No -Necrosis Amt Small (1-33%) None Present (0 %) -Necrotic Tissue Type Adherent Slough -Texture (Sera-wound Skin Appearance) Assessed Assessed, Assessed, Scarring Scarring -Moisture (Sera-wound Skin Appearance) Assessed Assessed Assessed -Color (Sera-wound Skin Appearance) Assessed Assessed Assessed -Temperature (Sera-wound Skin No Abnormality No Abnormality No Abnormality Appearance) (Pt Warm) (Pt Warm) (Pt Warm) -Tenderness on Palpation (Sera-wound No No No Skin Appearance) -Ulcer Cleansing Soap and Water Soap and Water Soap and Water -Foul Odor after Cleansing No No No -Anesthetic Used 5% Lidocaine 5% Lidocaine 5% Lidocaine Gel Gel Gel WC - Nurse 2 - General Ulcer CM Notes Start: 05/13/24 10:24 Freq: Status: Active Protocol: Activity Type Activity Date Activity User E-sign Co-sign Detail Recorded Client Recorded Date Recorded By Document 05/13/24 11:09 CARLA [id number] 05/13/24 11:14 Document 05/27/24 09:04 JF [id number] 05/27/24 09:06 Document 06/03/24 09:28 JF [id number] 06/03/24 09:30 05/13/24 05/27/24 06/03/24 11:09 09:04 09:28 Wound Center Nurse 2 4-right side abd -Time 11:13 09:28 -Correct Patient Yes Yes Yes -Correct Side, Site, Position Yes Yes Yes -Correct Procedure Yes Yes Yes -Procedure Performed Yes Yes Yes -Type of Procedure Debridement Debridement Debridement -Clinical Debridement Subcutaneous Subcutaneous Subcutaneous -Tissue Removed Subcutaneous Subcutaneous Subcutaneous -Post Debridement (cm) - Length 0.8 0.6 0.5 -Post Debridement (cm) - Width 1.3 1.0 0.6 -Post Debridement (cm) - Depth 0.1 0.1 0.1 -Total Square (Post) (cm) 1.04 0.60 0.30 -Area of Debridement (cm) - Length 0.8 0.6 0.5 -Area of Debridement (cm) - Width 1.3 1.0 0.6 -Total Square (Area) (cm) 1.04 0.60 0.30 -Tunneling No No No -Undermining/Tunneling No No No -Circular Undermining No No No -Wound/Ulcer Outcome Not Healed Not Healed Not Healed -Ulcer Cleansing Rinsed/ Rinsed/ Rinsed/ Irrigated with Irrigated with Irrigated with Saline Saline Saline -Foul Odor after Cleansing No No No -Bioengineered Tissue No No No -Bleeding Controlled with Pressure Pressure Pressure -Treatment Response Procedure Procedure Procedure Tolerated Well Tolerated Well Tolerated Well -Offloading No No No -Debridement - Subq, 1st 20sq cm Yes Yes No 3-left side abd -Time 11:10 09:29 -Correct Patient Yes No Yes -Correct Side, Site, Position Yes No Yes -Correct Procedure Yes No Yes -Procedure Performed Yes No Yes -Type of Procedure Debridement Debridement -Clinical Debridement Subcutaneous Subcutaneous -Tissue Removed Subcutaneous Subcutaneous -Post Debridement (cm) - Length 0.6 0 0.6 -Post Debridement (cm) - Width 1.0 0 0.8 -Post Debridement (cm) - Depth 0.1 0 0.1 -Total Square (Post) (cm) 0.60 0 0.48 -Area of Debridement (cm) - Length 0.6 0 0.6 -Area of Debridement (cm) - Width 1.0 0 0.8 -Total Square (Area) (cm) 0.60 0 0.48 -Tunneling No No -Undermining/Tunneling No No -Circular Undermining No No -Wound/Ulcer Outcome Not Healed Healed- Not Healed Epithelialized -Ulcer Cleansing Rinsed/ Rinsed/ Irrigated with Irrigated with Saline Saline -Foul Odor after Cleansing No No -Bioengineered Tissue No No -Bleeding Controlled with Pressure Pressure -Treatment Response Procedure Procedure Tolerated Well Tolerated Well -Offloading No No -Debridement - Subq, 1st 20sq cm No No #2 ABD -Time 11:11 09:06 09:30 -Correct Patient Yes Yes Yes -Correct Side, Site, Position Yes Yes Yes -Correct Procedure Yes Yes Yes -Procedure Performed Yes Yes Yes -Type of Procedure Debridement Debridement Debridement -Clinical Debridement Subcutaneous Subcutaneous Subcutaneous -Tissue Removed Subcutaneous Subcutaneous Subcutaneous -Post Debridement (cm) - Length 3.0 2.0 1.5 -Post Debridement (cm) - Width 2.3 1.3 1.0 -Post Debridement (cm) - Depth 0.1 0.2 0.1 -Total Square (Post) (cm) 6.90 2.60 1.50 -Area of Debridement (cm) - Length 3.0 2.0 1.5 -Area of Debridement (cm) - Width 2.3 1.3 1 -Total Square (Area) (cm) 6.90 2.60 1.5 -Tunneling No No No -Undermining/Tunneling No No -Circular Undermining No No No -Wound/Ulcer Outcome Not Healed Not Healed -Ulcer Cleansing Rinsed/ Rinsed/ Rinsed/ Irrigated with Irrigated with Irrigated with Saline Saline Saline -Foul Odor after Cleansing No No No -Bioengineered Tissue No No No -Bleeding Controlled with Pressure Pressure Pressure -Treatment Response Procedure Procedure Procedure Tolerated Well Tolerated Well Tolerated Well -Offloading No No No -Debridement - Subq, 1st 20sq cm No No Yes Pain Scale: 0-10 Numeric Is Patient Pain Free? Yes Yes Yes WC - Nurse 3 - General Ulcer D/C NN Start: 05/13/24 10:24 Freq: Status: Active Protocol: Activity Type Activity Date Activity User E-sign Co-sign Detail Recorded Client Recorded Date Recorded By Document 05/13/24 11:25 [facility] [id number] 05/13/24 11:25 [facility] Document 05/27/24 09:14 [id number] 05/27/24 09:14 Document 06/03/24 09:38 [facility] [id number] 06/03/24 09:39 [facility] 05/13/24 05/27/24 06/03/24 11:25 09:14 09:38 Wound Care Center Nurse 3 4-right side abd -Ulcer Cleansing Rinsed/ Rinsed/ Irrigated with Irrigated with Saline Saline -Foul Odor after Cleansing No No -Primary Dressing Applied Silvercel -Other Dressing silvercel pt own silver -Primary Dressing Covered/Secured with Dry Gauze, Dry Gauze, Dry Gauze, Secured with Secured with Secured with Tape Tape Tape -Silvercel 1 3-left side abd -Ulcer Cleansing Rinsed/ Rinsed/ Irrigated with Irrigated with Saline Saline -Foul Odor after Cleansing No No -Primary Dressing Applied Silvercel -Other Dressing silvercel -Primary Dressing Covered/Secured with Dry Gauze, Dry Gauze, Secured with Secured with Tape Tape -Silvercel 0 #2 ABD -Ulcer Cleansing Rinsed/ Rinsed/ Irrigated with Irrigated with Saline Saline -Foul Odor after Cleansing No No -Primary Dressing Applied Silvercel -Other Dressing silvercel pt own silver -Primary Dressing Covered/Secured with Dry Gauze, Dry Gauze, Dry Gauze, Secured with Secured with Secured with Tape Tape Tape -Silvercel 0 Treatment Response Procedure Procedure Tolerated Well Tolerated Well Pain Scale: 0-10 Numeric Is Patient Pain Free? Yes Yes Yes WC - Visit Discharge Discharge Condition Stable Stable Ambulatory Status Wheelchair Wheelchair Transportation Private Auto Accompanied by [facility] Facility Type Home Health Home Health Additional Wound Wound debrided: Right and left lateral abd skin fold Wound Grade/Stage: Stage III Type of Debridement: Excisional debridement Anesthesia Used: 5% Lidocaine Gel Depth: Down to and including healthy tissue and in the subcutaneous layer Percentage of wound debrided: 100 Instrument Used: 3mm curette Tissue Removed: Non viable tissue and slough Severity: Fat Layer Exposed Amount of bleeding with debridement: Mild Bleeding Controlled with: Pressure and Compression and gauze Patient tolerated procedure: Patient tolerated procedure well Assessment/Plan Assessment/Plan (1) Skin ulcer of abdominal wall with fat layer exposed: CODE(S): L98.492 - Non-pressure chronic ulcer of skin of other sites with fat layer exposed (2) Obesity: CODE(S): E66.9 - Obesity, unspecified QUALIFIERS: Obesity type: due to excess calories Obesity classification: adult class 3 (BMI >= 40) Serious obesity comorbidity presence: with serious comorbidity Body mass index: BMI 70 or greater Qualified Code(s): E66.01 - Morbid (severe) obesity due to excess calories; Z68.45 - Body mass index [BMI] 70 or greater, adult (3) Umbilicus discharge: CODE(S): R19.8 - Other specified symptoms and signs involving the digestive system and abdomen (4) Yeast infection of the skin: CODE(S): B37.2 - Candidiasis of skin and nail (5) Morbid obesity with BMI of 70 and over, adult: CODE(S): E66.01 - Morbid (severe) obesity due to excess calories; Z68.45 - Body mass index [BMI] 70 or greater, adult (6) Nonhealing skin ulcer: CODE(S): L98.499 - Non-pressure chronic ulcer of skin of other sites with unspecified severity QUALIFIERS: Non-pressure ulcer stage: with fat layer exposed Qualified Code(s): L98.492 - Non-pressure chronic ulcer of skin of other sites with fat layer exposed (7) Pre-diabetes: CODE(S): R73.03 - Prediabetes PLAN: Plan Patient evaluated at the wound healing center today. Wound care for the ulcers on right and left lateral abdomen and the lower abdomen/pannus area place Silvercel/silver alginate daily covered with ga uze/ABD/[place] SAP ideally daily, but at least every other day, to these ulcers after washing with soap and water. She would benefit from an advanced wound healing product to her lower abdomen/pannus chronic ulcer to help expedite the wound healing process. Epifix would be very beneficial to helping her heal this ulcer. We are waiting to hear from her insurance company. For her umbilicus, will continue placing a strip of 1/4 Iodoform gauze to help absorb the moisture and prevent maceration and skin rubbing against itself. She has home health to help her with her dressing changes 2-3 times per week. She has been approved for home health aid to assist with bathing and meal preparation. Reinforced to her to try and elevate her pannus on a pillow so that some of the swelling may decrease in the area that is most dependent. Her dietary consult has been rescheduled to a later date for her non healing ulcers, pre diabetes and BMI of 72.1 She will follow up 1 week. From previous notes about imaging and plan of care: She had an ultrasound of her abdomen at [facility] and it showed an abdominal hernia. She states she was removed from bariatric surgery program and was referred to the obesity medicine which she saw last week. They have put her on Trulicity. She has not started it yet. She states that she tried taking this in the past and it made her sick. She states that she is not able to get enough protein intake and can not afford the protein supplements, therefore, she may not be a candidate for the bariatric surgery. I stressed the importance of increased protein intake for wound healing. The increased protein intake/supplementation is necessary no matter what treatment plan that she decides to have. She had CT of abdomen and Bill on 03/25/24. She brought in a copy of the results from her tiffanie. Impression of scan: No acute findings within the abdomen and pelvis. 3.3 cm right indeterminate renal lesion. Recommend evaluation with CT or MRI renal protocol. Bilateral nonobstructive renal calculi. Mildly enlarted bilateral inguinal lymph nodes which is nonspecific and may be reactive. 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 Exophytic lesions arising from the uterus measuring up to 6.1 cm most likely represent uterine fibroids. This could be further evaluated with MRI pelvis. I shared her CT results, which are scanned into our EMR with Dr. Ortega. He would like her to continue to try to decrease her BMI closer to 35 before considering a panniculectomy with her. I had an extensive conversation with her about her medication and being compliant. She was supposed to meet with the boiler blower today but it got rescheduled. The boiler blower did leave a sheet with the amount of protein that REMIGIO should be taking in each day and different sources of protein. REMIGIO is hesitant of staring her Trulicity back up as prescribed by endocrine because it made her nauseated in the past. She states that she previously was on the highest dose that she could be on and now they are starting her with the lowest dose. Her concern is she still will have nauseousness and she also has a fear of needles. I suggested that she phone the person who prescribed her Trulicity and have this conversation with to see if there is some other options that she could have to assist her to lose weight. She does state that she has lost 90 pounds over the past 18 months with being on Wellbutrin and metformin.
== END 2024-06-06 23:59 | disposition home or self-care (01) ==
LOC: WC 09:00
PROVIDERS: PCP Preventive Medicine Occupational Medicine; Referring Provider Physician Assistant; Visit Provider Nurse Practitioner Family
DX: L98.492 Non-pressure chronic ulcer of skin of other sites with fat layer exposed (principal); L89.312 Pressure ulcer of right buttock, stage 2; E66.01 Morbid (severe) obesity due to excess calories; Z68.45 Body mass index [BMI] 70 or greater, adult; R26.2 Difficulty in walking, not elsewhere classified; E78.00 Pure hypercholesterolemia, unspecified; R73.03 Prediabetes; B37.2 Candidiasis of skin and nail; I10 Essential (primary) hypertension; R19.8 Other specified symptoms and signs involving the digestive system and abdomen; Z79.1 Long term (current) use of non-steroidal anti-inflammatories (NSAID); Z79.84 Long term (current) use of oral hypoglycemic drugs; Z79.890 Hormone replacement therapy; Z79.899 Other long term (current) drug therapy
CPT/HCPCS: 11042; 97802

== ENCOUNTER 2024-07-01 09:00 | Outpatient (RCR) | payer MEDICAID, SELFPAY ==
[2024-06-07 00:35] VITALS: BP 163/76; PULSE 77; RESP 16; TEMP 36.1; O2SAT 98; BMI 72.0
[2024-06-10 08:58] VITALS: BP 130/79; PULSE 73; RESP 20; TEMP 36.1; BMI 72.0
--- NOTE | 2024-06-10 12:29 | PCM.WC.HP ---
History of Present Illness Date of Service: 06/10/24 Chief Complaint: Ulcer on abdomen and leaky belly button. History of Wound: Patient is a 48-year-old female who presented on her pannus. She states that it was just noticed 1 to 2 weeks ago. She is obese and has a difficult time walking due to knee pain. She is able to transfer to and from her wheelchair. She states she is still able to drive. She states that she was bathing a couple weeks ago and discovered this ulcer. She states that it does have drainage. She has been covering it with a disposable pad to absorb the drainage. She also states that she has issues with drainage from her umbilicus. It will sometimes have a strong odor and also will bleed on occasion. She states she has seen dermatology and a general surgeon about this and they stated there was not much to do for this. Dermatology has put her on Ketoconazole cream for rashes in skin folds, that she has not recently been using. While examining her it was discovered that she also has an ulcer on her right lateral abdomen and her left lateral abdomen in a skin fold. She states she has a hard time bathing herself due to the weight of her pannus. She has a history of hypothyroidism, pre diabetes, polycystic ovary, asthma, sleep apnea, an ulcer on her left lower leg, and right knee arthritis. [facility]ound culture [facility] 09/12/23 at [facility] and was positive for Pseudomonas aeruginosa, Proteus mirabilis, and Corynebacterium striatum. She was treated with Doxycycline before the culture results were back. Will start her on Levaquin. She comes in today for further evaluation of her ulcer. She denies fever, chills, nausea or vomiting. Progress of Wound: Right lateral abdominal skin fold ulcer is healed today. Left lateral skin fold ulcer is smaller in size. Lower abdominal ulcer is smaller in size. She has been approved for Epifix to this ulcer. She continues to have some yeast rash under her abdominal pannus. 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 Morbid obesity with BMI of 70 and over, adult Panniculitis Intertrigo Yeast infection of the skin Skin ulcer of abdominal wall with fat layer exposed Decubitus skin ulcer Abdominal pannus Bursitis, prepatellar, right Osteoarthritis of right knee Right knee pain Seasonal allergies Hyperlipidemia Depressive disorder Polycystic ovarian disease Hypothyroid Asthma KATEY (obstructive sleep apnea) HTN (hypertension) Home Medications ?Medication ?Instructions ?Recorded ?Last Taken ?Type metoprolol tartrate 50 mg tablet 100 mg PO BID 09/23/14 Unknown History cholecalciferol (vitamin D3) 25 10,000 unit PO DAILY 07/08/16 Unknown History mcg (1,000 unit) tablet norethindrone acetate 5 mg tablet 5 mg PO DAILY 07/08/16 Unknown History metformin 500 mg tablet 1,500 mg PO DAILY 11/02/17 Unknown History albuterol sulfate 90 mcg/actuation 2 puff inhalation Q6H PRN 11/07/17 Unknown Rx aerosol inhaler shortness of breath or wheezing #1 device diclofenac potassium 25 mg capsule 50 mg PO BID 11/07/17 Unknown History montelukast 10 mg tablet 10 mg PO DAILY #30 tabs 11/07/17 Unknown Rx cyanocobalamin (vitamin B-12) 1,000 mcg PO DAILY 12/14/19 Unknown History 1,000 mcg capsule cyclobenzaprine 10 mg tablet 10 mg PO TID PRN Muscle Spasm 12/14/19 Unknown History levothyroxine 50 mcg tablet 50 mcg PO DAILY 12/14/19 Unknown History pravastatin 40 mg tablet 40 mg PO DAILY 12/14/19 Unknown History loratadine 10 mg tablet (Allergy 10 mg PO DAILY 08/11/22 Unknown History Relief (loratadine)) bupropion HCl 75 mg tablet 75 mg PO ONCE 11/03/22 Unknown History mirabegron 25 mg tablet,extended 50 mg PO DAILY 11/03/22 Unknown History release 24 hr (Myrbetriq) naltrexone 50 mg tablet 50 mg PO DAILY 11/03/22 Unknown History acetaminophen 650 mg 650 mg PO Q8H 05/05/23 Unknown History tablet,extended release lidocaine 5 % topical patch 1 patch topical DAILY 05/05/23 Unknown History promethazine-DM oral syrup ea PO 05/05/23 Unknown History mupirocin 2 % topical ointment 1 applic topical BID 05/30/23 Unknown History vitamin K2 100 mcg capsule 100 mcg PO DAILY 05/30/23 Unknown History doxycycline monohydrate 100 mg 100 mg PO BID #20 caps 09/12/23 Unknown Rx capsule levofloxacin 500 mg tablet 500 mg PO DAILY 14 days #14 tabs 10/11/23 Unknown Rx dapagliflozin propanediol 10 mg 10 mg PO DAILY 01/10/24 Unknown History tablet (Farxiga) diclofenac sodium 75 mg 75 mg PO BID 03/22/24 Unknown History tablet,delayed release loratadine 10 mg tablet (Allergy 10 mg PO DAILY 03/22/24 Unknown History Relief (loratadine)) metformin 500 mg tablet 500 mg PO DAILY 03/22/24 Unknown History tolnaftate 1 % topical spray 1 spray topical DAILY 03/22/24 Unknown History (Antifungal (tolnaftate)) nystatin 100,000 unit/gram topical 1 applic topical BID 30 days #60 04/10/24 Unknown Rx powder grams hydralazine 25 mg tablet 25 mg PO TID 05/30/24 Unknown History isosorbide mononitrate 10 mg tablet mg PO 05/30/24 Unknown History prednisone 20 mg tablet 20 mg PO BID 05/30/24 Unknown History Allergy/AdvReac Type Severity Reaction Status Date / Time animal dander Allergy Mild Itching Verified 05/30/24 12:45 grass pollen Allergy Mild Itching Verified 05/30/24 12:45 [facility] AdvReac Intermediate Nausea Verified 05/30/24 12:45 Family History Mother CVA (cerebral vascular accident) Asthma Diabetes Father Diabetes Hypertension Grandmother Heart disease Alcohol abuse Grandfather Cancer Surgical History History of tonsillectomy H/O adenoidectomy Social History Smoking Status: Never smoker alcohol intake: never substance use type: does not use additional social history: denies vaping, denies marijuana use, denies edibles, denies aspirin and ibuprofen use. Vital Signs Vital Signs Vital Signs: 06/10/24 08:58 Temperature 97 F L Temperature Source Temporal Pulse Rate 73 Respiratory Rate 20 H Blood Pressure 130/79 H Blood Pressure Mean 96 Blood Pressure Source Monitor Weight Weight: 378 lb 11.2 oz Body Mass Index (BMI) 72.0 Debridement Note Debridement Note Wound debrided: Lower abdominal pannus Laterality: Not Applicable Wound Grade/Stage: Stage III Type of Debridement: Excisional debridement Anesthesia Used: 5% Lidocaine Gel Depth: Down to and including healthy tissue and in the subcutaneous layer Percentage of wound debrided: 100 Instrument Used: 3mm curette Tissue Removed: Non viable tissue and slough Severity: Fat Layer Exposed Amount of bleeding with debridement: Mild Bleeding Controlled with: Compression and gauze Patient tolerated procedure: Patient tolerated procedure well Post-Debridement Measurements and Additional Note: Post-Debridement Measurements/Treatment - Nurse 1 - General Ulcer Assessment Start: 06/10/24 08:55 Freq: Status: Active Protocol: BALDEMAR Activity Type Activity Date Activity User E-sign Co-sign Detail Recorded Client Recorded Date Recorded By Document 06/10/24 08:58 DL [id number] 06/10/24 09:05 DL Edit Result 06/10/24 08:58 DL (1) [id number] 06/10/24 09:06 DL (1) Temperature (97.8 F-99.1 F) => 97 F L Temperature Source => Temporal Pulse Rate (60-100) => 73 Pulse Location => Monitor Respiratory Rate (12-18) => 20 H Respiratory rate source => Observation Blood Pressure (90/60-120/80) => 130/79 H Blood Pressure Mean => 96 Source => Monitor 06/10/24 08:58 - Today's Visit Information Type of service Follow-up Visit (Physician/PLASTIC SHEETS SUPERVISOR ) Arrival Mode Ambulatory, Wheelchair Transfer Assistance None Patient Identification Verified (Name & Yes ) Patient Requires Transmission-Based No Precautions Height and Weight Body Mass Index (BMI) 72.0 BMI Classification Obese Vital Signs Temperature (97.8 F-99.1 F) 97 F L Temperature Source Temporal Pulse Rate (60-100) 73 Pulse Location Monitor Respiratory Rate (12-18) 20 H Respiratory rate source Observation Blood Pressure (90/60-120/80) 130/79 H Blood Pressure Mean 96 Source Monitor History Since Last Visit- (Skip if this is Patient's initial visit) Have you changed medications since your No last visit? Any new allergies or adverse reactions No Had a fall/change in ADL's that may No increase risk of falls Signs or symptoms of abuse and/or No neglect since last visit Have you been in the hospital since your No last visit? Has compression in place as prescribed N/A Has offloadiing in place as prescribed N/A Experienced any changes in pain level or No management Pain Scale: 0-10 Numeric Is Patient Pain Free? Yes WC - Nurse 1 - General Ulcer Measurement Start: 06/10/24 08:55 Freq: Status: Active Protocol: Activity Type Activity Date Activity User E-sign Co-sign Detail Recorded Client Recorded Date Recorded By Document 06/10/24 08:58 DL [id number] 06/10/24 09:05 DL 06/10/24 08:58 Wound Center Nurse 1 4-right side abd -Current Size (cm) - Length 0 -Current Size (cm) - Width 0 -Current Size (cm) - Depth 0 -Total Square Cm 0 -Photo Taken Yes -Exudate Amt None Present -Wound Margin Flat & Intact -Granulation Amt Large (67-100%) -Granulation Quality [address] -Necrosis Amt None Present (0 %) -Structure Exposed N/A -Texture (Sera-wound Skin Appearance) Scarring -Moisture (Sera-wound Skin Appearance) No Abnormality -Color (Sera-wound Skin Appearance) No Abnormality -Temperature (Sera-wound Skin No Abnormality Appearance) (Pt Warm) -Tenderness on Palpation (Sera-wound No Skin Appearance) -Ulcer Cleansing Soap and Water 3-left side abd -Current Size (cm) - Length 0.5 -Current Size (cm) - Width 0.3 -Current Size (cm) - Depth 0.1 -Total Square Cm 0.15 -Photo Taken Yes -Exudate Amt Medium -Exudate Type Serosanguineous -Wound Margin Distinct, Outline Attached -Granulation Amt Large (67-100%) -Granulation Quality Red -Necrosis Amt None Present (0 %) -Structure Exposed N/A -Texture (Sera-wound Skin Appearance) Scarring -Moisture (Sera-wound Skin Appearance) No Abnormality -Color (Sera-wound Skin Appearance) No Abnormality -Temperature (Sera-wound Skin No Abnormality Appearance) (Pt Warm) -Tenderness on Palpation (Sera-wound No Skin Appearance) -Ulcer Cleansing Soap and Water -Foul Odor after Cleansing No -Anesthetic Used 5% Lidocaine Gel #2 ABD -Current Size (cm) - Length 1.1 -Current Size (cm) - Width 0.4 -Current Size (cm) - Depth 0.1 -Total Square Cm 0.44 -Photo Taken Yes -Exudate Amt Small -Wound Margin Distinct, Outline Attached -Granulation Amt Large (67-100%) -Granulation Quality [address] -Necrosis Amt Small (1-33%) -Necrotic Tissue Type Adherent Slough -Structure Exposed N/A -Texture (Sera-wound Skin Appearance) Scarring -Moisture (Sera-wound Skin Appearance) No Abnormality -Color (Sera-wound Skin Appearance) No Abnormality -Temperature (Sera-wound Skin No Abnormality Appearance) (Pt Warm) -Tenderness on Palpation (Sera-wound No Skin Appearance) -Ulcer Cleansing Soap and Water -Foul Odor after Cleansing No -Anesthetic Used 5% Lidocaine Gel WC - Nurse 2 - General Ulcer CM Notes Start: 06/10/24 08:55 Freq: Status: Active Protocol: Activity Type Activity Date Activity User E-sign Co-sign Detail Recorded Client Recorded Date Recorded By Document 06/10/24 09:42 [id number] 06/10/24 09:45 CARLA 06/10/24 09:42 Wound Center Nurse 2 4-right side abd -Correct Patient No -Correct Side, Site, Position No -Correct Procedure No -Procedure Performed No -Wound/Ulcer Outcome Not Healed 3-left side abd -Time 09:42 -Correct Patient Yes -Correct Side, Site, Position Yes -Correct Procedure Yes -Procedure Performed Yes -Type of Procedure Debridement -Clinical Debridement Subcutaneous -Tissue Removed Subcutaneous -Post Debridement (cm) - Length 0.5 -Post Debridement (cm) - Width 0.5 -Post Debridement (cm) - Depth 0.1 -Total Square (Post) (cm) 0.25 -Area of Debridement (cm) - Length 0.5 -Area of Debridement (cm) - Width 0.5 -Total Square (Area) (cm) 0.25 -Tunneling No -Undermining/Tunneling No -Circular Undermining No -Wound/Ulcer Outcome Not Healed -Ulcer Cleansing Rinsed/ Irrigated with Saline -Foul Odor after Cleansing No -Bioengineered Tissue No -Bleeding Controlled with Pressure -Treatment Response Procedure Tolerated Well -Offloading No -Debridement - Subq, 1st 20sq cm Yes #2 ABD -Time 09:43 -Correct Patient Yes -Correct Side, Site, Position Yes -Correct Procedure Yes -Procedure Performed Yes -Type of Procedure Debridement -Clinical Debridement Subcutaneous -Tissue Removed Subcutaneous -Post Debridement (cm) - Length 1.2 -Post Debridement (cm) - Width 0.7 -Post Debridement (cm) - Depth 0.1 -Total Square (Post) (cm) 0.84 -Area of Debridement (cm) - Length 1.2 -Area of Debridement (cm) - Width 0.7 -Total Square (Area) (cm) 0.84 -Tunneling No -Undermining/Tunneling No -Circular Undermining No -Wound/Ulcer Outcome Not Healed -Ulcer Cleansing Rinsed/ Irrigated with Saline -Foul Odor after Cleansing No -Bioengineered Tissue Yes -Type of Bioengineered Tissue Epifix 18mm Disc -Expiration Date 01/05/29 -Product Lot Number [id number] -Percent Used 100 -Lot number of Saline Used [id number] -Bleeding Controlled with Pressure -Treatment Response Procedure Tolerated Well -Offloading No -Debridement - Subq, 1st 20sq cm No -Apply Skin Sub - 1st 25 sq cm - Legs 1 -Epifix 18mm Disc 3 Pain Scale: 0-10 Numeric Is Patient Pain Free? Yes - Nurse 3 - General Ulcer D/C NN Start: 06/10/24 08:55 Freq: Status: Active Protocol: Activity Type Activity Date Activity User E-sign Co-sign Detail Recorded Client Recorded Date Recorded By Document 06/10/24 09:52 [id number] 06/10/24 09:54 06/10/24 09:52 Wound Care Center Nurse 3 4-right side abd -Primary Dressing Applied Aquacel AG 4x4 -Primary Dressing Covered/Secured with Dry Gauze, Secured with Tape -Aquacel AG 4x4 1 3-left side abd -Other Dressing aquacel ag -Primary Dressing Covered/Secured with Dry Gauze #2 ABD -Primary Dressing Applied Mepilex Border -Mepilex Border 2 Pain Scale: 0-10 Numeric Is Patient Pain Free? Yes Additional Wound Wound debrided: Left lateral abd skin fold Wound Grade/Stage: Stage III Type of Debridement: Excisional debridement Anesthesia Used: 5% Lidocaine Gel Depth: Down to and including healthy tissue and in the subcutaneous layer Percentage of wound debrided: 100 Instrument Used: 3mm curette Tissue Removed: Non viable tissue and slough Severity: Fat Layer Exposed Amount of bleeding with debridement: Mild Bleeding Controlled with: Pressure and Compression and gauze Patient tolerated procedure: Patient tolerated procedure well Charges/Coding Procedures Integumentary [id number]: 43927 Skin sub graft trnk/arm/leg (lower abdominal pannus ulcer) Multi Select Codes Integumentary Integumentary CPT Codes: 36653 Silvia subq tissue 20 sq cm/< (left lateral abdominal skin fold ulcer) Assessment/Plan Assessment/Plan (1) Skin ulcer of abdominal wall with fat layer exposed: CODE(S): L98.492 - Non-pressure chronic ulcer of skin of other sites with fat layer exposed (2) Obesity: CODE(S): E66.9 - Obesity, unspecified QUALIFIERS: Obesity type: due to excess calories Obesity classification: adult class 3 (BMI >= 40) Serious obesity comorbidity presence: with serious comorbidity Body mass index: BMI 70 or greater Qualified Code(s): E66.01 - Morbid (severe) obesity due to excess calories; Z68.45 - Body mass index [BMI] 70 or greater, adult (3) Umbilicus discharge: CODE(S): R19.8 - Other specified symptoms and signs involving the digestive system and abdomen (4) Yeast infection of the skin: CODE(S): B37.2 - Candidiasis of skin and nail (5) Morbid obesity with BMI of 70 and over, adult: CODE(S): E66.01 - Morbid (severe) obesity due to excess calories; Z68.45 - Body mass index [BMI] 70 or greater, adult (6) Nonhealing skin ulcer: CODE(S): L98.499 - Non-pressure chronic ulcer of skin of other sites with unspecified severity QUALIFIERS: Non-pressure ulcer stage: with fat layer exposed Qualified Code(s): L98.492 - Non-pressure chronic ulcer of skin of other sites with fat layer exposed (7) Pre-diabetes: CODE(S): R73.03 - Prediabetes PLAN: Plan Patient evaluated at the wound healing center today. Wound care for the ulcers on left lateral abdomen place Silvercel/silver alginate daily covered with gauze/ABD/King SAP ideally daily, but at least every other day, to ulcer after washing with soap and water. Cover right lateral abdomen healed ulcer with dry gauze to help keep it healed. She has been approved for Epifix to the lower abdominal ulcer. Epifix #1 placed on the lower abdominal pannus ulcer. 100% of the product was used. It was covered with wound veil and secured with steri strips. Hydrogel placed on it and covered with silicone bordered dressing. Instructed not to get the dressing wet. May change the outer dressing only if need to due to have increased drainage. Place nystatin powder under pannus skin fold yeast rash at least once daily. For her umbilicus, will continue placing a strip of 1/4 Iodoform gauze to help absorb the moisture and prevent maceration and skin rubbing against itself. She has home health to help her with her dressing changes 2-3 times per week. She has been approved for home health aid to assist with bathing and meal preparation. Her dietary consult has been rescheduled to a later date for her non healing ulcers, pre diabetes and BMI of 72.1 She will follow up 1 week. From previous notes about imaging and plan of care: She had an ultrasound of her abdomen at [facility] and it showed an abdominal hernia. She states she was removed from bariatric surgery program and was referred to the obesity medicine which she saw last week. They have put her on Trulicity. She has not started it yet. She states that she tried taking this in the past and it made her sick. She states that she is not able to get enough protein intake and can not afford the protein supplements, therefore, she may not be a candidate for the bariatric surgery. I stressed the importance of increased protein intake for wound healing. The increased protein intake/supplementation is necessary no matter what treatment plan that she decides to have. She had CT of abdomen and Bill on 03/25/24. She brought in a copy of the results from her tiffanie. Impression of scan: No acute findings within the abdomen and pelvis. 3.3 cm right indeterminate renal lesion. Recommend evaluation with CT or MRI renal protocol. Bilateral nonobstructive renal calculi. Mildly enlarted bilateral inguinal lymph nodes which is nonspecific and may be reactive. 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 Exophytic lesions arising from the uterus measuring up to 6.1 cm most likely represent uterine fibroids. This could be further evaluated with MRI pelvis. I shared her CT results, which are scanned into our EMR with Dr. Ortega. He would like her to continue to try to decrease her BMI closer to 35 before considering a panniculectomy with her. I had an extensive conversation with her about her medication and being compliant. She was supposed to meet with the appliance service supervisor today but it got rescheduled. The appliance service supervisor did leave a sheet with the amount of protein that REMIGIO should be taking in each day and different sources of protein. REMIGIO is hesitant of staring her Trulicity back up as prescribed by endocrine because it made her nauseated in the past. She states that she previously was on the highest dose that she could be on and now they are starting her with the lowest dose. Her concern is she still will have nauseousness and she also has a fear of needles. I suggested that she phone the person who prescribed her Trulicity and have this conversation with to see if there is some other options that she could have to assist her to lose weight. She does state that she has lost 90 pounds over the past 18 months with being on Wellbutrin and metformin.
--- NOTE | 2024-06-12 13:05 | WC ---
PHOTO 06/10/24 ABD
[2024-06-17 14:37] VITALS: BP 192/85; PULSE 72; RESP 16; TEMP 35.7; BMI 72.0
--- NOTE | 2024-06-18 06:01 | PCM.WC.PN ---
History of Present Illness Date of Service: 06/17/24 Chief Complaint: Ulcer on abdomen and leaky belly button. History of Wound: Patient is a 48-year-old female who presented on her pannus. She states that it was just noticed 1 to 2 weeks ago. She is obese and has a difficult time walking due to knee pain. She is able to transfer to and from her wheelchair. She states she is still able to drive. She states that she was bathing a couple weeks ago and discovered this ulcer. She states that it does have drainage. She has been covering it with a disposable pad to absorb the drainage. She also states that she has issues with drainage from her umbilicus. It will sometimes have a strong odor and also will bleed on occasion. She states she has seen dermatology and a general surgeon about this and they stated there was not much to do for this. Dermatology has put her on Ketoconazole cream for rashes in skin folds, that she has not recently been using. While examining her it was discovered that she also has an ulcer on her right lateral abdomen and her left lateral abdomen in a skin fold. She states she has a hard time bathing herself due to the weight of her pannus. She has a history of hypothyroidism, pre diabetes, polycystic ovary, asthma, sleep apnea, an ulcer on her left lower leg, and right knee arthritis. Wound culture obtained 09/12/23 at [facility] and was positive for Pseudomonas aeruginosa, Proteus mirabilis, and Corynebacterium striatum. She was treated with Doxycycline before the culture results were back. Will start her on Levaquin. She comes in today for further evaluation of her ulcer. She denies fever, chills, nausea or vomiting. Progress of Wound: Right lateral abdominal skin fold ulcer ishealed today. Left lateral skin fold ulcer is smaller in size. Lower abdominal ulcer is smaller in size. She has been approved for Epifix to this ulcer. She continues to have some yeast rash under her abdominal pannus. Continues to have some drainage from her bellybutton Subjective Subjective Patient recently had CT scan done in [place] and was not able to get IV contrast because of her kidney issues, but did have oral contrast. She has not followed up with a general surgeon about the CT scan. Objective Data Objective Data Vital Signs: Vital Signs Temp Pulse Resp BP Pulse Ox O2 Del Method 96.2 F L 72 16 192/85 H 98 Room Air 06/17/24 14:37 06/17/24 14:37 06/17/24 14:37 06/17/24 14:37 06/07/24 00:35 06/17/24 14:37 Oxygen Delivery Method Room Air Weight: 378 lb 11.2 oz Body Mass Index (BMI) 72.0 Charges/Coding Procedures Integumentary 111xxx-113xx: 23610 Silvia subq tissue 20 sq cm/< Physical Exam Narrative Small 0.5 x 0.5 cm ulcer underneath her abdominal pannus, which is superficial and in the subcutaneous tissues. Peers to be healing very well and is about to reepithelialized. Persistent drainage from the umbilicus. Const alert and oriented x3 Debridement Note Debridement Note Wound debrided: Pannus, central fold Laterality: Not Applicable Type of Debridement: Excisional debridement Anesthesia Used: 4% Lidocaine Solution Depth: in the subcutaneous layer Percentage of wound debrided: 100 Instrument Used: 5mm curette Severity: Fat Layer Exposed Amount of bleeding with debridement: Mild Bleeding Controlled with: Compression and gauze Patient tolerated procedure: Patient tolerated procedure well Post-Debridement Measurements and Additional Note: Post-Debridement Measurements/Treatment - Nurse 1 - General Ulcer Assessment Start: 06/10/24 08:55 Freq: Status: Active Protocol: BALDEMAR Activity Type Activity Date Activity User E-sign Co-sign Detail Recorded Client Recorded Date Recorded By Document 06/10/24 08:58 DL [id number] 06/10/24 09:05 DL Edit Result 06/10/24 08:58 DL (1) [id number] 06/10/24 09:06 DL Document 06/17/24 14:37 KW [id number] 06/17/24 14:43 KW (1) Temperature (97.8 F-99.1 F) => 97 F L Temperature Source => Temporal Pulse Rate (60-100) => 73 Pulse Location => Monitor Respiratory Rate (12-18) => 20 H Respiratory rate source => Observation Blood Pressure (90/60-120/80) => 130/79 H Blood Pressure Mean (mm Hg) => 96 Source => Monitor 06/10/24 06/17/24 08:58 14:37 - Today's Visit Information Type of service Follow-up Visit Follow-up Visit (Physician/AUTO BODY MECHANIC APPRENTICE (Physician/AUTO BODY MECHANIC APPRENTICE ) ) Arrival Mode Ambulatory, Wheelchair Wheelchair Transfer Assistance None Accompanied by roommate Patient Identification Verified (Name & Yes Yes ) Patient Requires Transmission-Based No Precautions Height and Weight Body Mass Index (BMI) 72.0 72.0 BMI Classification Obese Obese Vital Signs Temperature (97.8 F-99.1 F) 97 F L 96.2 F L Temperature Source Temporal Temporal Pulse Rate (60-100) 73 72 Pulse Location Monitor Monitor Respiratory Rate (12-18) 20 H 16 Respiratory rate source Observation Observation Oxygen Delivery Method Room Air Blood Pressure (90/60-120/80) 130/79 H 192/85 H Blood Pressure Mean (mm Hg) 96 120 Source Monitor Monitor Position Sitting Blood Pressure Location Left Forearm History Since Last Visit- (Skip if this is Patient's initial visit) Have you changed medications since your No No last visit? Any new allergies or adverse reactions No No Had a fall/change in ADL's that may No No increase risk of falls Signs or symptoms of abuse and/or No No neglect since last visit Have you been in the hospital since your No No last visit? Has dressing in place as prescribed Yes Has compression in place as prescribed N/A N/A Has offloadiing in place as prescribed N/A N/A Experienced any changes in pain level or No No management Left Footwear Regular Shoe Right Footwear Regular Shoe Pain Scale: 0-10 Numeric Is Patient Pain Free? Yes Yes WC - Nurse 1 - General Ulcer Measurement Start: 06/10/24 08:55 Freq: Status: Active Protocol: Activity Type Activity Date Activity User E-sign Co-sign Detail Recorded Client Recorded Date Recorded By Document 06/10/24 08:58 DL [id number] 06/10/24 09:05 DL Document 06/17/24 14:37 KW [id number] 06/17/24 14:43 KW 06/10/24 06/17/24 08:58 14:37 Wound Center Nurse 1 4-right side abd -Current Size (cm) - Length 0 0 -Current Size (cm) - Width 0 0 -Current Size (cm) - Depth 0 0 -Total Square Cm 0 0 -Photo Taken Yes -Exudate Amt None Present -Wound Margin Flat & Intact -Granulation Amt Large (67-100%) -Granulation Quality [place] -Necrosis Amt None Present (0 %) -Structure Exposed N/A -Texture (Sera-wound Skin Appearance) Scarring -Moisture (Sera-wound Skin Appearance) No Abnormality -Color (Sera-wound Skin Appearance) No Abnormality -Temperature (Sera-wound Skin No Abnormality Appearance) (Pt Warm) -Tenderness on Palpation (Sera-wound No Skin Appearance) -Ulcer Cleansing Soap and Water 3-left side abd -Current Size (cm) - Length 0.5 0 -Current Size (cm) - Width 0.3 0 -Current Size (cm) - Depth 0.1 0 -Total Square Cm 0.15 0 -Photo Taken Yes -Exudate Amt Medium -Exudate Type Serosanguineous -Wound Margin Distinct, Outline Attached -Granulation Amt Large (67-100%) -Granulation Quality Red -Necrosis Amt None Present (0 %) -Structure Exposed N/A -Texture (Sera-wound Skin Appearance) Scarring -Moisture (Sera-wound Skin Appearance) No Abnormality -Color (Sera-wound Skin Appearance) No Abnormality -Temperature (Sera-wound Skin No Abnormality Appearance) (Pt Warm) -Tenderness on Palpation (Sera-wound No Skin Appearance) -Ulcer Cleansing Soap and Water -Foul Odor after Cleansing No -Anesthetic Used 5% Lidocaine Gel #2 ABD -Current Size (cm) - Length 1.1 0.8 -Current Size (cm) - Width 0.4 0.5 -Current Size (cm) - Depth 0.1 0.1 -Total Square Cm 0.44 0.40 -Photo Taken Yes -Exudate Amt Small Small -Exudate Type Serosanguineous -Wound Margin Distinct, Distinct, Outline Outline Attached Attached -Granulation Amt Large (67-100%) Large (67-100%) -Granulation Quality [place] -Necrosis Amt Small (1-33%) -Necrotic Tissue Type Adherent Slough -Structure Exposed N/A -Texture (Sera-wound Skin Appearance) Scarring Assessed -Moisture (Sera-wound Skin Appearance) No Abnormality Assessed -Color (Sera-wound Skin Appearance) No Abnormality Assessed -Temperature (Sera-wound Skin No Abnormality No Abnormality Appearance) (Pt Warm) (Pt Warm) -Tenderness on Palpation (Sera-wound No No Skin Appearance) -Ulcer Cleansing Soap and Water Soap and Water -Foul Odor after Cleansing No No -Anesthetic Used 5% Lidocaine 5% Lidocaine Gel Gel WC - Nurse 2 - General Ulcer CM Notes Start: 06/10/24 08:55 Freq: Status: Active Protocol: Activity Type Activity Date Activity User E-sign Co-sign Detail Recorded Client Recorded Date Recorded By Document 06/10/24 09:42 [id number] 06/10/24 09:45 Document 06/17/24 14:58 [id number] 06/17/24 15:00 JF 06/10/24 06/17/24 09:42 14:58 Wound Center Nurse 2 4-right side abd -Correct Patient No No -Correct Side, Site, Position No No -Correct Procedure No No -Procedure Performed No No -Post Debridement (cm) - Length 0 -Post Debridement (cm) - Width 0 -Post Debridement (cm) - Depth 0 -Total Square (Post) (cm) 0 -Area of Debridement (cm) - Length 0 -Area of Debridement (cm) - Width 0 -Total Square (Area) (cm) 0 -Wound/Ulcer Outcome Not Healed Healed- Epithelialized 3-left side abd -Time 09:42 -Correct Patient Yes No -Correct Side, Site, Position Yes No -Correct Procedure Yes No -Procedure Performed Yes No -Type of Procedure Debridement -Clinical Debridement Subcutaneous -Tissue Removed Subcutaneous -Post Debridement (cm) - Length 0.5 0 -Post Debridement (cm) - Width 0.5 0 -Post Debridement (cm) - Depth 0.1 0 -Total Square (Post) (cm) 0.25 0 -Area of Debridement (cm) - Length 0.5 0 -Area of Debridement (cm) - Width 0.5 0 -Total Square (Area) (cm) 0.25 0 -Tunneling No -Undermining/Tunneling No -Circular Undermining No -Wound/Ulcer Outcome Not Healed Healed- Epithelialized -Ulcer Cleansing Rinsed/ Irrigated with Saline -Foul Odor after Cleansing No -Bioengineered Tissue No -Bleeding Controlled with Pressure -Treatment Response Procedure Tolerated Well -Offloading No -Debridement - Subq, 1st 20sq cm Yes #2 ABD -Time 09:43 14:59 -Correct Patient Yes Yes -Correct Side, Site, Position Yes Yes -Correct Procedure Yes Yes -Procedure Performed Yes Yes -Type of Procedure Debridement Debridement -Clinical Debridement Subcutaneous Subcutaneous -Tissue Removed Subcutaneous Subcutaneous -Post Debridement (cm) - Length 1.2 0.5 -Post Debridement (cm) - Width 0.7 0.5 -Post Debridement (cm) - Depth 0.1 0.1 -Total Square (Post) (cm) 0.84 0.25 -Area of Debridement (cm) - Length 1.2 0.5 -Area of Debridement (cm) - Width 0.7 0.5 -Total Square (Area) (cm) 0.84 0.25 -Tunneling No No -Undermining/Tunneling No No -Circular Undermining No No -Wound/Ulcer Outcome Not Healed Not Healed -Ulcer Cleansing Rinsed/ Rinsed/ Irrigated with Irrigated with Saline Saline -Foul Odor after Cleansing No No -Bioengineered Tissue Yes No -Type of Bioengineered Tissue Epifix 18mm Disc -Expiration Date 01/05/29 -Product Lot Number [id number] -Percent Used 100 -Lot number of Saline Used [id number] -Bleeding Controlled with Pressure Pressure -Treatment Response Procedure Procedure Tolerated Well Tolerated Well -Offloading No No -Debridement - Subq, 1st 20sq cm No Yes -Apply Skin Sub - 1st 25 sq cm - Legs 1 -Epifix 18mm Disc 3 Pain Scale: 0-10 Numeric Is Patient Pain Free? Yes Yes WC - Nurse 3 - General Ulcer D/C NN Start: 06/10/24 08:55 Freq: Status: Active Protocol: Activity Type Activity Date Activity User E-sign Co-sign Detail Recorded Client Recorded Date Recorded By Document 06/10/24 09:52 [id number] 06/10/24 09:54 Document 06/17/24 15:09 [facility] [id number] 06/17/24 15:10 [facility] 06/10/24 06/17/24 09:52 15:09 Wound Care Center Nurse 3 4-right side abd -Primary Dressing Applied Aquacel AG 4x4 -Primary Dressing Covered/Secured with Dry Gauze, Secured with Tape -Aquacel AG 4x4 1 3-left side abd -Other Dressing aquacel ag -Primary Dressing Covered/Secured with Dry Gauze #2 ABD -Ulcer Cleansing Not Cleansed -Foul Odor after Cleansing No -Primary Dressing Applied Mepilex Border -Other Dressing silvercel -Primary Dressing Covered/Secured with Secured with Tape -Other Covering abd -Mepilex Border 2 Treatment Response Procedure Tolerated Well Pain Scale: 0-10 Numeric Is Patient Pain Free? Yes Yes WC - Visit Discharge Discharge Condition Stable Ambulatory Status Wheelchair Transportation Private Auto Accompanied by friend Assessment/Plan Assessment/Plan (1) Skin ulcer of abdominal wall with fat layer exposed: CODE(S): L98.492 - Non-pressure chronic ulcer of skin of other sites with fat layer exposed PLAN: Patient has nearly healed on her abdominal wound, however she has persistent drainage from her umbilicus and she is concerned still for a fistula. I recommended that she go to the [facility] to follow-up with her general surgeon (she has been established with them) and bring her CT scan that she had in [place] to them. She was happy with this plan and is going to make an appoint with the [facility]. Follow-up with wound care BODY FITTER for abdominal wound
[2024-06-24 08:45] VITALS: BP 162/100; PULSE 77; RESP 18; TEMP 36.4; BMI 72.0
--- NOTE | 2024-06-24 09:16 | PCM.WC.PN ---
History of Present Illness Date of Service: 06/24/24 Chief Complaint: Ulcer on abdomen and leaky belly button. History of Wound: Patient is a 48-year-old female who presented on her pannus. She states that it was just noticed 1 to 2 weeks ago. She is obese and has a difficult time walking due to knee pain. She is able to transfer to and from her wheelchair. She states she is still able to drive. She states that she was bathing a couple weeks ago and discovered this ulcer. She states that it does have drainage. She has been covering it with a disposable pad to absorb the drainage. She also states that she has issues with drainage from her umbilicus. It will sometimes have a strong odor and also will bleed on occasion. She states she has seen dermatology and a general surgeon about this and they stated there was not much to do for this. Dermatology has put her on Ketoconazole cream for rashes in skin folds, that she has not recently been using. While examining her it was discovered that she also has an ulcer on her right lateral abdomen and her left lateral abdomen in a skin fold. She states she has a hard time bathing herself due to the weight of her pannus. She has a history of hypothyroidism, pre diabetes, polycystic ovary, asthma, sleep apnea, an ulcer on her left lower leg, and right knee arthritis. Wound culture obtained 09/12/23 at [facility] and was positive for Pseudomonas aeruginosa, Proteus mirabilis, and Corynebacterium striatum. She was treated with Doxycycline before the culture results were back. Will start her on Levaquin. She comes in today for further evaluation of her ulcer. She denies fever, chills, nausea or vomiting. Progress of Wound: Right lateral and left lateral abdominal skin fold ulcers are both healed today. Lower abdominal ulcer is smaller in size and almost healed. She has had one application of Epifix to this ulcer. She states that her dressing only stayed on for 4 days. It obviously helped because she is almost healed. She continues to have drainage from her umbilicus. Objective Data Objective Data Vital Signs: Vital Signs Temp Pulse Resp BP Pulse Ox O2 Del Method 97.6 F L 77 18 162/100 H 98 Room Air 06/24/24 08:45 06/24/24 08:45 06/24/24 08:45 06/24/24 08:45 06/07/24 00:35 06/24/24 08:45 Oxygen Delivery Method Room Air Weight: 378 lb 11.2 oz Body Mass Index (BMI) 72.0 Charges/Coding Procedures Integumentary 111xxx-113xx: [id number] Silvia subq tissue 20 sq cm/< Debridement Note Debridement Note Wound debrided: Pannus, central fold Laterality: Not Applicable Type of Debridement: Excisional debridement Anesthesia Used: 4% Lidocaine Solution Depth: in the subcutaneous layer Percentage of wound debrided: 100 Instrument Used: 3mm curette Tissue Removed: Non viable tissue and slough Severity: Fat Layer Exposed Amount of bleeding with debridement: Mild Bleeding Controlled with: Compression and gauze Patient tolerated procedure: Patient tolerated procedure well Post-Debridement Measurements and Additional Note: Post-Debridement Measurements/Treatment - Nurse 1 - General Ulcer Assessment Start: 06/10/24 08:55 Freq: Status: Active Protocol: BALDEMAR Activity Type Activity Date Activity User E-sign Co-sign Detail Recorded Client Recorded Date Recorded By Document 06/10/24 08:58 DL [id number] 06/10/24 09:05 DL Edit Result 06/10/24 08:58 DL (1) [id number] 06/10/24 09:06 DL Document 06/17/24 14:37 KW [id number] 06/17/24 14:43 KW Document 06/24/24 08:45 KW [id number] 06/24/24 08:53 KW (1) Temperature (97.8 F-99.1 F) => 97 F L Temperature Source => Temporal Pulse Rate (60-100) => 73 Pulse Location => Monitor Respiratory Rate (12-18) => 20 H Respiratory rate source => Observation Blood Pressure (90/60-120/80) => 130/79 H Blood Pressure Mean (mm Hg) => 96 Source => Monitor 06/10/24 06/17/24 06/24/24 08:58 14:37 08:45 - Today's Visit Information Type of service Follow-up Visit Follow-up Visit Follow-up Visit (Physician/[employer] [facility] (Physician/[employer] [facility] (Physician/[employer] [facility] [facility] ) ) ) Arrival Mode Ambulatory, Wheelchair Wheelchair Wheelchair Transfer Assistance None Accompanied by roommate roommate Patient Identification Verified (Name & Yes Yes Yes ) Patient Requires Transmission-Based No Precautions Height and Weight Body Mass Index (BMI) 72.0 72.0 72.0 BMI Classification Obese Obese Obese Vital Signs Temperature (97.8 F-99.1 F) 97 F L 96.2 F L 97.6 F L Temperature Source Temporal Temporal Temporal Pulse Rate (60-100) 73 72 77 Pulse Location Monitor Monitor Monitor Respiratory Rate (12-18) 20 H 16 18 Respiratory rate source Observation Observation Observation Oxygen Delivery Method Room Air Room Air Blood Pressure (90/60-120/80) 130/79 H 192/85 H 162/100 H Blood Pressure Mean (mm Hg) 96 120 120 Source Monitor Monitor Monitor Position Sitting Sitting Blood Pressure Location Left Forearm Left Forearm History Since Last Visit- (Skip if this is Patient's initial visit) Have you changed medications since your No No No last visit? Any new allergies or adverse reactions No No No Had a fall/change in ADL's that may No No No increase risk of falls Signs or symptoms of abuse and/or No No No neglect since last visit Have you been in the hospital since your No No No last visit? Has dressing in place as prescribed Yes Yes Has compression in place as prescribed N/A N/A N/A Has offloadiing in place as prescribed N/A N/A N/A Experienced any changes in pain level or No No No management Left Footwear Regular Shoe Regular Shoe Right Footwear Regular Shoe Regular Shoe Pain Scale: 0-10 Numeric Is Patient Pain Free? Yes Yes Yes WC - Nurse 1 - General Ulcer Measurement Start: 06/10/24 08:55 Freq: Status: Active Protocol: Activity Type Activity Date Activity User E-sign Co-sign Detail Recorded Client Recorded Date Recorded By Document 06/10/24 08:58 DL [id number] 06/10/24 09:05 DL Document 06/17/24 14:37 KW [id number] 06/17/24 14:43 KW Document 06/24/24 08:45 KW [id number] 06/24/24 08:53 KW 06/10/24 06/17/24 06/24/24 08:58 14:37 08:45 Wound Center Nurse 1 4-right side abd -Current Size (cm) - Length 0 0 -Current Size (cm) - Width 0 0 -Current Size (cm) - Depth 0 0 -Total Square Cm 0 0 -Photo Taken Yes -Exudate Amt None Present -Wound Margin Flat & Intact -Granulation Amt Large (67-100%) -Granulation Quality Elizabeth -Necrosis Amt None Present (0 %) -Structure Exposed N/A -Texture (Sera-wound Skin Appearance) Scarring -Moisture (Sera-wound Skin Appearance) No Abnormality -Color (Sera-wound Skin Appearance) No Abnormality -Temperature (Sera-wound Skin No Abnormality Appearance) (Pt Warm) -Tenderness on Palpation (Sera-wound No Skin Appearance) -Ulcer Cleansing Soap and Water 3-left side abd -Current Size (cm) - Length 0.5 0 -Current Size (cm) - Width 0.3 0 -Current Size (cm) - Depth 0.1 0 -Total Square Cm 0.15 0 -Photo Taken Yes -Exudate Amt Medium -Exudate Type Serosanguineous -Wound Margin Distinct, Outline Attached -Granulation Amt Large (67-100%) -Granulation Quality Red -Necrosis Amt None Present (0 %) -Structure Exposed N/A -Texture (Sera-wound Skin Appearance) Scarring -Moisture (Sera-wound Skin Appearance) No Abnormality -Color (Sera-wound Skin Appearance) No Abnormality -Temperature (Sera-wound Skin No Abnormality Appearance) (Pt Warm) -Tenderness on Palpation (Sera-wound No Skin Appearance) -Ulcer Cleansing Soap and Water -Foul Odor after Cleansing No -Anesthetic Used 5% Lidocaine Gel #2 ABD -Current Size (cm) - Length 1.1 0.8 0.1 -Current Size (cm) - Width 0.4 0.5 0.1 -Current Size (cm) - Depth 0.1 0.1 0.1 -Total Square Cm 0.44 0.40 0.01 -Date of Last Picture (Recall this 06/24/24 field) -Photo Taken Yes -Epithelialization Large 67-100% -Exudate Amt Small Small -Exudate Type Serosanguineous -Wound Margin Distinct, Distinct, Outline Outline Attached Attached -Granulation Amt Large (67-100%) Large (67-100%) Large (67-100%) -Granulation Quality Elizabeth Elizabeth Elizabeth -Necrosis Amt Small (1-33%) -Necrotic Tissue Type Adherent Slough -Structure Exposed N/A -Texture (Sera-wound Skin Appearance) Scarring Assessed Assessed -Moisture (Sera-wound Skin Appearance) No Abnormality Assessed Assessed -Color (Sera-wound Skin Appearance) No Abnormality Assessed Assessed -Temperature (Sera-wound Skin No Abnormality No Abnormality No Abnormality Appearance) (Pt Warm) (Pt Warm) (Pt Warm) -Tenderness on Palpation (Sera-wound No No No Skin Appearance) -Ulcer Cleansing Soap and Water Soap and Water Soap and Water -Foul Odor after Cleansing No No No -Anesthetic Used 5% Lidocaine 5% Lidocaine 5% Lidocaine Gel Gel Gel WC - Nurse 2 - General Ulcer CM Notes Start: 06/10/24 08:55 Freq: Status: Active Protocol: Activity Type Activity Date Activity User E-sign Co-sign Detail Recorded Client Recorded Date Recorded By Document 06/10/24 09:42 [id number] 06/10/24 09:45 Document 06/17/24 14:58 [id number] 06/17/24 15:00 Document 06/24/24 09:01 [id number] 06/24/24 09:03 06/10/24 06/17/24 06/24/24 09:42 14:58 09:01 Wound Center Nurse 2 4-right side abd -Correct Patient No No -Correct Side, Site, Position No No -Correct Procedure No No -Procedure Performed No No -Post Debridement (cm) - Length 0 -Post Debridement (cm) - Width 0 -Post Debridement (cm) - Depth 0 -Total Square (Post) (cm) 0 -Area of Debridement (cm) - Length 0 -Area of Debridement (cm) - Width 0 -Total Square (Area) (cm) 0 -Wound/Ulcer Outcome Not Healed Healed- Epithelialized 3-left side abd -Time 09:42 -Correct Patient Yes No -Correct Side, Site, Position Yes No -Correct Procedure Yes No -Procedure Performed Yes No -Type of Procedure Debridement -Clinical Debridement Subcutaneous -Tissue Removed Subcutaneous -Post Debridement (cm) - Length 0.5 0 -Post Debridement (cm) - Width 0.5 0 -Post Debridement (cm) - Depth 0.1 0 -Total Square (Post) (cm) 0.25 0 -Area of Debridement (cm) - Length 0.5 0 -Area of Debridement (cm) - Width 0.5 0 -Total Square (Area) (cm) 0.25 0 -Tunneling No -Undermining/Tunneling No -Circular Undermining No -Wound/Ulcer Outcome Not Healed Healed- Epithelialized -Ulcer Cleansing Rinsed/ Irrigated with Saline -Foul Odor after Cleansing No -Bioengineered Tissue No -Bleeding Controlled with Pressure -Treatment Response Procedure Tolerated Well -Offloading No -Debridement - Subq, 1st 20sq cm Yes #2 ABD -Time 09:43 14:59 09:02 -Correct Patient Yes Yes Yes -Correct Side, Site, Position Yes Yes Yes -Correct Procedure Yes Yes Yes -Procedure Performed Yes Yes Yes -Type of Procedure Debridement Debridement Debridement -Clinical Debridement Subcutaneous Subcutaneous Subcutaneous -Tissue Removed Subcutaneous Subcutaneous Subcutaneous -Post Debridement (cm) - Length 1.2 0.5 0.4 -Post Debridement (cm) - Width 0.7 0.5 0.3 -Post Debridement (cm) - Depth 0.1 0.1 0.1 -Total Square (Post) (cm) 0.84 0.25 0.12 -Area of Debridement (cm) - Length 1.2 0.5 0.4 -Area of Debridement (cm) - Width 0.7 0.5 0.3 -Total Square (Area) (cm) 0.84 0.25 0.12 -Tunneling No No No -Undermining/Tunneling No No No -Circular Undermining No No No -Wound/Ulcer Outcome Not Healed Not Healed Not Healed -Ulcer Cleansing Rinsed/ Rinsed/ Rinsed/ Irrigated with Irrigated with Irrigated with Saline Saline Saline -Foul Odor after Cleansing No No No -Bioengineered Tissue Yes No No -Type of Bioengineered Tissue Epifix 18mm Disc -Expiration Date 01/05/29 -Product Lot Number [id number] -Percent Used 100 -Lot number of Saline Used [id number] -Bleeding Controlled with Pressure Pressure Pressure -Treatment Response Procedure Procedure Procedure Tolerated Well Tolerated Well Tolerated Well -Offloading No No No -Debridement - Subq, 1st 20sq cm No Yes Yes -Apply Skin Sub - 1st 25 sq cm - Legs 1 -Epifix 18mm Disc 3 Pain Scale: 0-10 Numeric Is Patient Pain Free? Yes Yes Yes - Nurse 3 - General Ulcer D/C NN Start: 06/10/24 08:55 Freq: Status: Active Protocol: Activity Type Activity Date Activity User E-sign Co-sign Detail Recorded Client Recorded Date Recorded By Document 11/04/24 09:52 KW [id number] 06/10/24 09:54 KW Document 06/17/24 15:09 [facility] [id number] 06/17/24 15:10 [facility] Document 06/24/24 09:12 DL [id number] 06/24/24 09:12 DL 06/10/24 06/17/24 06/24/24 09:52 15:09 09:12 Wound Care Center Nurse 3 4-right side abd -Primary Dressing Applied Aquacel AG 4x4 -Primary Dressing Covered/Secured with Dry Gauze, Secured with Tape -Aquacel AG 4x4 1 3-left side abd -Other Dressing aquacel ag -Primary Dressing Covered/Secured with Dry Gauze #2 ABD -Ulcer Cleansing Not Cleansed Rinsed/ Irrigated with Saline -Foul Odor after Cleansing No No -Primary Dressing Applied Mepilex Border C Hydrogel ($) -Other Dressing silvercel -Primary Dressing Covered/Secured with Secured with Dry Gauze, Tape Secured with Tape -Other Covering abd -Mepilex Border 2 Treatment Response Procedure Procedure Tolerated Well Tolerated Well Pain Scale: 0-10 Numeric Is Patient Pain Free? Yes Yes Yes WC - Visit Discharge Discharge Condition Stable Stable Ambulatory Status Wheelchair Ambulatory, Wheelchair Transportation Private Auto Private Auto Accompanied by friend Assessment/Plan Assessment/Plan (1) Skin ulcer of abdominal wall with fat layer exposed: CODE(S): L98.492 - Non-pressure chronic ulcer of skin of other sites with fat layer exposed PLAN: Patient evaluated at the wound healing center today. The ulcers on left and right lateral abdomen are healed. She is to monitor these areas closely as they tend to reopen easily. She can keep gauze over these areas to help prevent skin rubbing together. She has had one application of Epifix. She states that it only stayed on 4 days before her dressing came off. She is hesitant to have another application. She had much improvement in her ulcer with the Epifix. IF she is not healed next week, then we will do a second application. Wound care - To lower abdominal pannus ulcer place Collagen Hydrogel covered with gauze daily after washing the area with soap and water. For her umbilicus, will continue placing a strip of 1/4 Iodoform gauze to help absorb the moisture and prevent maceration and skin rubbing against itself. Place nystatin powder under pannus skin fold yeast rash at least once daily. She has home health to help her with her dressing changes 2-3 times per week. She has been approved for home health aid to assist with bathing and meal preparation. Dr. Ortega recommended that she go to the [facility] to follow-up with her general surgeon (she has been established with them) and bring her CT scan that she had in [place] to them. She was happy with this plan and is going to make an appoint with the [facility]. She will follow up 1 week.
--- NOTE | 2024-06-25 13:49 | WC ---
PHOTO 06/24/24 ABD
[2024-07-01 08:47] VITALS: BP 167/80; PULSE 79; RESP 18; TEMP 35.8; BMI 72.0
--- NOTE | 2024-07-01 12:06 | PCM.WC.PN ---
History of Present Illness Date of Service: 07/01/24 Chief Complaint: Ulcer on abdomen and leaky belly button. History of Wound: Patient is a 48-year-old female who presented on her pannus. She states that it was just noticed 1 to 2 weeks ago. She is obese and has a difficult time walking due to knee pain. She is able to transfer to and from her wheelchair. She states she is still able to drive. She states that she was bathing a couple weeks ago and discovered this ulcer. She states that it does have drainage. She has been covering it with a disposable pad to absorb the drainage. She also states that she has issues with drainage from her umbilicus. It will sometimes have a strong odor and also will bleed on occasion. She states she has seen dermatology and a general surgeon about this and they stated there was not much to do for this. Dermatology has put her on Ketoconazole cream for rashes in skin folds, that she has not recently been using. While examining her it was discovered that she also has an ulcer on her right lateral abdomen and her left lateral abdomen in a skin fold. She states she has a hard time bathing herself due to the weight of her pannus. She has a history of hypothyroidism, pre diabetes, polycystic ovary, asthma, sleep apnea, an ulcer on her left lower leg, and right knee arthritis. Wound culture obtained 09/12/23 at [facility] and was positive for Pseudomonas aeruginosa, Proteus mirabilis, and Corynebacterium striatum. She was treated with Doxycycline before the culture results were back. Will start her on Levaquin. She comes in today for further evaluation of her ulcer. She denies fever, chills, nausea or vomiting. Progress of Wound: Right lateral and left lateral abdominal skin fold ulcers both remain healed today. Lower abdominal ulcer is also healed. She continues to have drainage from her umbilicus. She states that home health nurse one time irrigated her umbilicus with saline or soapy water and that after that, it did not drain for several days. Objective Data Objective Data Vital Signs: Vital Signs Temp Pulse Resp BP Pulse Ox O2 Del Method 96.5 F L 79 18 167/80 H 98 Room Air 07/01/24 08:47 07/01/24 08:47 07/01/24 08:47 07/01/24 08:47 06/07/24 00:35 07/01/24 08:47 Oxygen Delivery Method Room Air Weight: 378 lb 11.2 oz Body Mass Index (BMI) 72.0 Charges/Coding Visit Charges Office Visits / Consults: 99229 OV L3 Est 20min Physical Exam Const alert and oriented x3 Constitutional Narrative: Very pleasant. General Appearance: cooperative HEENT normocephalic Head and Scalp: atraumatic Eyes General Eye: normal appearance of both eyes Neck full ROM Resp normal respiratory effort, normal air movement and clear to auscultation bilaterally Effort and Inspection: able to speak in complete sentences Cardio regular rate and regular rhythm GI soft to palpation and non-tender GI Narrative: Very large pannus. Back/Spine normal ROM Extremity normal capillary refill General Extremity: edema Skin Skin Narrative: She has a yeast rash under her pannus. It is red and irritated with a distinct yeast odor. Wound Narrative: Right lateral and left lateral abdominal skin fold ulcers both remain healed today. Lower abdominal ulcer is also healed. She continues to have drainage from her umbilicus. Neuro oriented x3 Psych mental status grossly normal and thought process normal Debridement Note Debridement Note No debridement was completed: No debridement was completed today Post-Debridement Measurements and Additional Note: Post-Debridement Measurements/Treatment WC - Nurse 1 - General Ulcer Assessment Start: 06/10/24 08:55 Freq: Status: Active Protocol: BALDEMAR Activity Type Activity Date Activity User E-sign Co-sign Detail Recorded Client Recorded Date Recorded By Document 06/10/24 08:58 DL [id number] 06/10/24 09:05 DL Edit Result 06/10/24 08:58 DL (1) [id number] 06/10/24 09:06 DL Document 06/17/24 14:37 KW [id number] 06/17/24 14:43 KW Document 06/24/24 08:45 KW [id number] 06/24/24 08:53 KW Document 07/01/24 08:47 KW [id number] 07/01/24 08:53 KW (1) Temperature (97.8 F-99.1 F) => 97 F L Temperature Source => Temporal Pulse Rate (60-100) => 73 Pulse Location => Monitor Respiratory Rate (12-18) => 20 H Respiratory rate source => Observation Blood Pressure (90/60-120/80) => 130/79 H Blood Pressure Mean (mm Hg) => 96 Source => Monitor 06/10/24 06/17/24 06/24/24 08:58 14:37 08:45 WC - Today's Visit Information Type of service Follow-up Visit Follow-up Visit Follow-up Visit (Physician/ENTREPRENEURIAL FINANCE PROFESSOR (Physician/ENTREPRENEURIAL FINANCE PROFESSOR (Physician/ENTREPRENEURIAL FINANCE PROFESSOR ) ) ) Arrival Mode Ambulatory, Wheelchair Wheelchair Wheelchair Transfer Assistance None Accompanied by roommate roommate Patient Identification Verified (Name & Yes Yes Yes ) Patient Requires Transmission-Based No Precautions Height and Weight Body Mass Index (BMI) 72.0 72.0 72.0 BMI Classification Obese Obese Obese Vital Signs Temperature (97.8 F-99.1 F) 97 F L 96.2 F L 97.6 F L Temperature Source Temporal Temporal Temporal Pulse Rate (60-100) 73 72 77 Pulse Location Monitor Monitor Monitor Respiratory Rate (12-18) 20 H 16 18 Respiratory rate source Observation Observation Observation Oxygen Delivery Method Room Air Room Air Blood Pressure (90/60-120/80) 130/79 H 192/85 H 162/100 H Blood Pressure Mean (mm Hg) 96 120 120 Source Monitor Monitor Monitor Position Sitting Sitting Blood Pressure Location Left Forearm Left Forearm History Since Last Visit- (Skip if this is Patient's initial visit) Have you changed medications since your No No No last visit? Any new allergies or adverse reactions No No No Had a fall/change in ADL's that may No No No increase risk of falls Signs or symptoms of abuse and/or No No No neglect since last visit Have you been in the hospital since your No No No last visit? Has dressing in place as prescribed Yes Yes Has compression in place as prescribed N/A N/A N/A Has offloadiing in place as prescribed N/A N/A N/A Experienced any changes in pain level or No No No management Left Footwear Regular Shoe Regular Shoe Right Footwear Regular Shoe Regular Shoe Pain Scale: 0-10 Numeric Is Patient Pain Free? Yes Yes Yes 07/01/24 08:47 - Today's Visit Information Type of service Follow-up Visit (Physician/ENTREPRENEURIAL FINANCE PROFESSOR ) Arrival Mode Wheelchair Transfer Assistance Accompanied by healthcare science specialist Patient Identification Verified (Name & Yes ) Patient Requires Transmission-Based Precautions Height and Weight Body Mass Index (BMI) 72.0 BMI Classification Obese Vital Signs Temperature (97.8 F-99.1 F) 96.5 F L Temperature Source Temporal Pulse Rate (60-100) 79 Pulse Location Monitor Respiratory Rate (12-18) 18 Respiratory rate source Observation Oxygen Delivery Method Room Air Blood Pressure (90/60-120/80) 167/80 H Blood Pressure Mean (mm Hg) 109 Source Monitor Position Semi-Fowlers Blood Pressure Location Left Arm History Since Last Visit- (Skip if this is Patient's initial visit) Have you changed medications since your No last visit? Any new allergies or adverse reactions No Had a fall/change in ADL's that may No increase risk of falls Signs or symptoms of abuse and/or No neglect since last visit Have you been in the hospital since your No last visit? Has dressing in place as prescribed Yes Has compression in place as prescribed N/A Has offloadiing in place as prescribed N/A Experienced any changes in pain level or No management Left Footwear Regular Shoe Right Footwear Regular Shoe Pain Scale: 0-10 Numeric Is Patient Pain Free? Yes WC - Nurse 1 - General Ulcer Measurement Start: 06/10/24 08:55 Freq: Status: Active Protocol: Activity Type Activity Date Activity User E-sign Co-sign Detail Recorded Client Recorded Date Recorded By Document 06/10/24 08:58 DL [id number] 06/10/24 09:05 DL Document 06/17/24 14:37 KW [id number] 06/17/24 14:43 KW Document 06/24/24 08:45 KW [id number] 06/24/24 08:53 KW Document 07/01/24 08:47 KW [id number] 07/01/24 08:53 KW 06/10/24 06/17/24 06/24/24 08:58 14:37 08:45 Wound Center Nurse 1 4-right side abd -Current Size (cm) - Length 0 0 -Current Size (cm) - Width 0 0 -Current Size (cm) - Depth 0 0 -Total Square Cm 0 0 -Photo Taken Yes -Exudate Amt None Present -Wound Margin Flat & Intact -Granulation Amt Large (67-100%) -Granulation Quality [place] -Necrosis Amt None Present (0 %) -Structure Exposed N/A -Texture (Sera-wound Skin Appearance) Scarring -Moisture (Sera-wound Skin Appearance) No Abnormality -Color (Sera-wound Skin Appearance) No Abnormality -Temperature (Sera-wound Skin No Abnormality Appearance) (Pt Warm) -Tenderness on Palpation (Sera-wound No Skin Appearance) -Ulcer Cleansing Soap and Water 3-left side abd -Current Size (cm) - Length 0.5 0 -Current Size (cm) - Width 0.3 0 -Current Size (cm) - Depth 0.1 0 -Total Square Cm 0.15 0 -Photo Taken Yes -Exudate Amt Medium -Exudate Type Serosanguineous -Wound Margin Distinct, Outline Attached -Granulation Amt Large (67-100%) -Granulation Quality Red -Necrosis Amt None Present (0 %) -Structure Exposed N/A -Texture (Sera-wound Skin Appearance) Scarring -Moisture (Sera-wound Skin Appearance) No Abnormality -Color (Sera-wound Skin Appearance) No Abnormality -Temperature (Sera-wound Skin No Abnormality Appearance) (Pt Warm) -Tenderness on Palpation (Sera-wound No Skin Appearance) -Ulcer Cleansing Soap and Water -Foul Odor after Cleansing No -Anesthetic Used 5% Lidocaine Gel #2 ABD -Current Size (cm) - Length 1.1 0.8 0.1 -Current Size (cm) - Width 0.4 0.5 0.1 -Current Size (cm) - Depth 0.1 0.1 0.1 -Total Square Cm 0.44 0.40 0.01 -Date of Last Picture (Recall this 06/24/24 field) -Photo Taken Yes -Epithelialization Large 67-100% -Exudate Amt Small Small -Exudate Type Serosanguineous -Wound Margin Distinct, Distinct, Outline Outline Attached Attached -Granulation Amt Large (67-100%) Large (67-100%) Large (67-100%) -Granulation Quality [place] -Necrosis Amt Small (1-33%) -Necrotic Tissue Type Adherent Slough -Structure Exposed N/A -Texture (Sera-wound Skin Appearance) Scarring Assessed Assessed -Moisture (Sera-wound Skin Appearance) No Abnormality Assessed Assessed -Color (Sera-wound Skin Appearance) No Abnormality Assessed Assessed -Temperature (Sera-wound Skin No Abnormality No Abnormality No Abnormality Appearance) (Pt Warm) (Pt Warm) (Pt Warm) -Tenderness on Palpation (Sera-wound No No No Skin Appearance) -Ulcer Cleansing Soap and Water Soap and Water Soap and Water -Foul Odor after Cleansing No No No -Anesthetic Used 5% Lidocaine 5% Lidocaine 5% Lidocaine Gel Gel Gel 07/01/24 08:47 Wound Center Nurse 1 4-right side abd -Current Size (cm) - Length -Current Size (cm) - Width -Current Size (cm) - Depth -Total Square Cm -Photo Taken -Exudate Amt -Wound Margin -Granulation Amt -Granulation Quality -Necrosis Amt -Structure Exposed -Texture (Sera-wound Skin Appearance) -Moisture (Sera-wound Skin Appearance) -Color (Sera-wound Skin Appearance) -Temperature (Sera-wound Skin Appearance) -Tenderness on Palpation (Sera-wound Skin Appearance) -Ulcer Cleansing 3-left side abd -Current Size (cm) - Length -Current Size (cm) - Width -Current Size (cm) - Depth -Total Square Cm -Photo Taken -Exudate Amt -Exudate Type -Wound Margin -Granulation Amt -Granulation Quality -Necrosis Amt -Structure Exposed -Texture (Sera-wound Skin Appearance) -Moisture (Sera-wound Skin Appearance) -Color (Sera-wound Skin Appearance) -Temperature (Sera-wound Skin Appearance) -Tenderness on Palpation (Sera-wound Skin Appearance) -Ulcer Cleansing -Foul Odor after Cleansing -Anesthetic Used #2 ABD -Current Size (cm) - Length 0.1 -Current Size (cm) - Width 0.1 -Current Size (cm) - Depth 0 -Total Square Cm 0.01 -Date of Last Picture (Recall this 07/01/24 field) -Photo Taken -Epithelialization -Exudate Amt None Present -Exudate Type -Wound Margin -Granulation Amt None Present (0 %) -Granulation Quality -Necrosis Amt None Present (0 %) -Necrotic Tissue Type -Structure Exposed -Texture (Sera-wound Skin Appearance) Assessed -Moisture (Sera-wound Skin Appearance) Assessed -Color (Sera-wound Skin Appearance) Assessed -Temperature (Sera-wound Skin No Abnormality Appearance) (Pt Warm) -Tenderness on Palpation (Sera-wound No Skin Appearance) -Ulcer Cleansing Soap and Water -Foul Odor after Cleansing No -Anesthetic Used WC - Nurse 2 - General Ulcer CM Notes Start: 06/10/24 08:55 Freq: Status: Active Protocol: Activity Type Activity Date Activity User E-sign Co-sign Detail Recorded Client Recorded Date Recorded By Document 06/10/24 09:42 [id number] 06/10/24 09:45 Document 06/17/24 14:58 [id number] 06/17/24 15:00 JF Document 06/24/24 09:01 [id number] 06/24/24 09:03 JF Document 07/01/24 09:10 [id number] 07/01/24 09:11 JF 06/10/24 06/17/24 06/24/24 09:42 14:58 09:01 Wound Center Nurse 2 4-right side abd -Correct Patient No No -Correct Side, Site, Position No No -Correct Procedure No No -Procedure Performed No No -Post Debridement (cm) - Length 0 -Post Debridement (cm) - Width 0 -Post Debridement (cm) - Depth 0 -Total Square (Post) (cm) 0 -Area of Debridement (cm) - Length 0 -Area of Debridement (cm) - Width 0 -Total Square (Area) (cm) 0 -Wound/Ulcer Outcome Not Healed Healed- Epithelialized 3-left side abd -Time 09:42 -Correct Patient Yes No -Correct Side, Site, Position Yes No -Correct Procedure Yes No -Procedure Performed Yes No -Type of Procedure Debridement -Clinical Debridement Subcutaneous -Tissue Removed Subcutaneous -Post Debridement (cm) - Length 0.5 0 -Post Debridement (cm) - Width 0.5 0 -Post Debridement (cm) - Depth 0.1 0 -Total Square (Post) (cm) 0.25 0 -Area of Debridement (cm) - Length 0.5 0 -Area of Debridement (cm) - Width 0.5 0 -Total Square (Area) (cm) 0.25 0 -Tunneling No -Undermining/Tunneling No -Circular Undermining No -Wound/Ulcer Outcome Not Healed Healed- Epithelialized -Ulcer Cleansing Rinsed/ Irrigated with Saline -Foul Odor after Cleansing No -Bioengineered Tissue No -Bleeding Controlled with Pressure -Treatment Response Procedure Tolerated Well -Offloading No -Debridement - Subq, 1st 20sq cm Yes #2 ABD -Time 09:43 14:59 09:02 -Correct Patient Yes Yes Yes -Correct Side, Site, Position Yes Yes Yes -Correct Procedure Yes Yes Yes -Procedure Performed Yes Yes Yes -Type of Procedure Debridement Debridement Debridement -Clinical Debridement Subcutaneous Subcutaneous Subcutaneous -Tissue Removed Subcutaneous Subcutaneous Subcutaneous -Post Debridement (cm) - Length 1.2 0.5 0.4 -Post Debridement (cm) - Width 0.7 0.5 0.3 -Post Debridement (cm) - Depth 0.1 0.1 0.1 -Total Square (Post) (cm) 0.84 0.25 0.12 -Area of Debridement (cm) - Length 1.2 0.5 0.4 -Area of Debridement (cm) - Width 0.7 0.5 0.3 -Total Square (Area) (cm) 0.84 0.25 0.12 -Tunneling No No No -Undermining/Tunneling No No No -Circular Undermining No No No -Wound/Ulcer Outcome Not Healed Not Healed Not Healed -Ulcer Cleansing Rinsed/ Rinsed/ Rinsed/ Irrigated with Irrigated with Irrigated with Saline Saline Saline -Foul Odor after Cleansing No No No -Bioengineered Tissue Yes No No -Type of Bioengineered Tissue Epifix 18mm Disc -Expiration Date 01/05/29 -Product Lot Number [id number] -Percent Used 100 -Lot number of Saline Used [id number] -Bleeding Controlled with Pressure Pressure Pressure -Treatment Response Procedure Procedure Procedure Tolerated Well Tolerated Well Tolerated Well -Offloading No No No -Debridement - Subq, 1st 20sq cm No Yes Yes -Apply Skin Sub - 1st 25 sq cm - Legs 1 -Epifix 18mm Disc 3 Pain Scale: 0-10 Numeric Is Patient Pain Free? Yes Yes Yes 07/01/24 09:10 Wound Center Nurse 2 4-right side abd -Correct Patient -Correct Side, Site, Position -Correct Procedure -Procedure Performed -Post Debridement (cm) - Length -Post Debridement (cm) - Width -Post Debridement (cm) - Depth -Total Square (Post) (cm) -Area of Debridement (cm) - Length -Area of Debridement (cm) - Width -Total Square (Area) (cm) -Wound/Ulcer Outcome 3-left side abd -Time -Correct Patient -Correct Side, Site, Position -Correct Procedure -Procedure Performed -Type of Procedure -Clinical Debridement -Tissue Removed -Post Debridement (cm) - Length -Post Debridement (cm) - Width -Post Debridement (cm) - Depth -Total Square (Post) (cm) -Area of Debridement (cm) - Length -Area of Debridement (cm) - Width -Total Square (Area) (cm) -Tunneling -Undermining/Tunneling -Circular Undermining -Wound/Ulcer Outcome -Ulcer Cleansing -Foul Odor after Cleansing -Bioengineered Tissue -Bleeding Controlled with -Treatment Response -Offloading -Debridement - Subq, 1st 20sq cm #2 ABD -Time -Correct Patient No -Correct Side, Site, Position No -Correct Procedure No -Procedure Performed No -Type of Procedure -Clinical Debridement -Tissue Removed -Post Debridement (cm) - Length 0 -Post Debridement (cm) - Width 0 -Post Debridement (cm) - Depth 0 -Total Square (Post) (cm) 0 -Area of Debridement (cm) - Length 0 -Area of Debridement (cm) - Width 0 -Total Square (Area) (cm) 0 -Tunneling -Undermining/Tunneling -Circular Undermining -Wound/Ulcer Outcome Healed- Epithelialized -Ulcer Cleansing -Foul Odor after Cleansing -Bioengineered Tissue -Type of Bioengineered Tissue -Expiration Date -Product Lot Number -Percent Used -Lot number of Saline Used -Bleeding Controlled with -Treatment Response -Offloading -Debridement - Subq, 1st 20sq cm -Apply Skin Sub - 1st 25 sq cm - Legs -Epifix 18mm Disc Pain Scale: 0-10 Numeric Is Patient Pain Free? Yes WC - Nurse 3 - General Ulcer D/C NN Start: 06/10/24 08:55 Freq: Status: Active Protocol: Activity Type Activity Date Activity User E-sign Co-sign Detail Recorded Client Recorded Date Recorded By Document 06/10/24 09:52 KW [id number] 06/10/24 09:54 KW Document 06/17/24 15:09 BMF [id number] 06/17/24 15:10 BMF Document 06/24/24 09:12 DL [id number] 06/24/24 09:12 DL Document 07/01/24 09:11 JF [id number] 07/01/24 09:11 JF Document 07/01/24 09:34 DL [id number] 07/01/24 09:35 DL 06/10/24 06/17/24 06/24/24 09:52 15:09 09:12 Wound Care Center Nurse 3 4-right side abd -Primary Dressing Applied Aquacel AG 4x4 -Primary Dressing Covered/Secured with Dry Gauze, Secured with Tape -Aquacel AG 4x4 1 3-left side abd -Other Dressing aquacel ag -Primary Dressing Covered/Secured with Dry Gauze #2 ABD -Ulcer Cleansing Not Cleansed Rinsed/ Irrigated with Saline -Foul Odor after Cleansing No No -Primary Dressing Applied Mepilex Border C Hydrogel ($) -Other Dressing silvercel -Primary Dressing Covered/Secured with Secured with Dry Gauze, Tape Secured with Tape -Other Covering abd -Mepilex Border 2 Treatment Response Procedure Procedure Tolerated Well Tolerated Well Pain Scale: 0-10 Numeric Is Patient Pain Free? Yes Yes Yes WC - Visit Discharge Discharge Condition Stable Stable Ambulatory Status Wheelchair Ambulatory, Wheelchair Transportation Private Auto Private Auto Accompanied by friend Medication Reconcilliation completed & provided to patient/care provider Clinical Summary of Care Provided Notes: 07/01/24 07/01/24 09:11 09:34 Wound Care Center Nurse 3 4-right side abd -Primary Dressing Applied -Primary Dressing Covered/Secured with -Aquacel AG 4x4 3-left side abd -Other Dressing -Primary Dressing Covered/Secured with #2 ABD -Ulcer Cleansing -Foul Odor after Cleansing -Primary Dressing Applied -Other Dressing -Primary Dressing Covered/Secured with -Other Covering -Mepilex Border Treatment Response Procedure Tolerated Well Pain Scale: 0-10 Numeric Is Patient Pain Free? Yes Yes WC - Visit Discharge Discharge Condition Stable Stable Ambulatory Status Ambulatory, Ambulatory, Wheelchair Wheelchair Transportation Private Auto Private Auto Accompanied by Medication Reconcilliation completed & Yes provided to patient/care provider Clinical Summary of Care Provided Yes Notes: No dressing needed, healed. F/U in one month with WC. Assessment/Plan Assessment/Plan (1) Skin ulcer of abdominal wall with fat layer exposed: CODE(S): L98.492 - Non-pressure chronic ulcer of skin of other sites with fat layer exposed PLAN: Patient evaluated at the wound healing center today. The ulcers on left and right lateral abdomen remain healed. She is to monitor these areas closely as they tend to reopen easily. She can keep gauze over these areas to help prevent skin rubbing together. Her lower pannus ulcer is healed today. She will continue to pack her umbilicus with iodoform gauze daily. She can have it irrigated with soap and water and patted dry when she has home health to assist with her dressing. She has a rash under her pannus. Instructed to place nystatin powder under pannus skin fold yeast rash at least once daily. She states she has not been doing this consistently. She has home health to help her with her dressing changes 2-3 times per week. She has been approved for home health aid to assist with bathing and meal preparation. Recommend that she go to the [facility] to a general surgeon for further evaluation of the drainage from her umbilical area. Her CT scan that she had in [place] did not have contrast due to her kidney issues. It was suggested that we refer her to Dr. Joseph at [facility]. She will follow up 4 weeks.
--- NOTE | 2024-07-02 09:03 | WC ---
PHOTO 07/01/24 ANTWON (H)
--- NOTE | 2024-07-03 15:10 | WC ---
Left a voicemail message regarding a referral that was recommended by Dr Ortega after Gale Haddad BOUNTY HUNTER spoke to him about who to send this patient to regarding her umbilical area sinus track. Dr Isma Joseph with [facility] was recommended and a referral was successfully sent. Advised patient to call her if she has any further questions.
== END 2024-07-06 23:59 | disposition home or self-care (01) ==
LOC: WC 09:00
PROVIDERS: PCP Preventive Medicine Occupational Medicine; Referring Provider Physician Assistant; Visit Provider Nurse Practitioner Family
DX: L98.492 Non-pressure chronic ulcer of skin of other sites with fat layer exposed (principal); E66.01 Morbid (severe) obesity due to excess calories; Z68.45 Body mass index [BMI] 70 or greater, adult; R73.03 Prediabetes; B37.2 Candidiasis of skin and nail; I10 Essential (primary) hypertension; E78.00 Pure hypercholesterolemia, unspecified; M17.11 Unilateral primary osteoarthritis, right knee; R26.2 Difficulty in walking, not elsewhere classified; G47.33 Obstructive sleep apnea (adult) (pediatric); J45.909 Unspecified asthma, uncomplicated; E03.9 Hypothyroidism, unspecified; Z79.84 Long term (current) use of oral hypoglycemic drugs; Z79.890 Hormone replacement therapy; Z79.899 Other long term (current) drug therapy; R19.8 Other specified symptoms and signs involving the digestive system and abdomen
CPT/HCPCS: 11042; 15271; 97803; 99213; Q4186; G0463

== ENCOUNTER 2024-08-05 08:39 | Outpatient (RCR) | payer MEDICAID, SELFPAY ==
[2024-07-07 00:23] VITALS: BP 163/76; PULSE 77; RESP 16; TEMP 36.1; O2SAT 98; BMI 72.0
[2024-08-05 08:40] VITALS: BP 187/88; PULSE 90; RESP 18; TEMP 35.9; BMI 72.0
--- NOTE | 2024-08-05 13:28 | PCM.WC.PN ---
History of Present Illness Date of Service: 08/05/24 Chief Complaint: Ulcer on abdomen and leaky belly button. History of Wound: Patient is a 48-year-old female who presented on her pannus. She states that it was just noticed 1 to 2 weeks ago. She is obese and has a difficult time walking due to knee pain. She is able to transfer to and from her wheelchair. She states she is still able to drive. She states that she was bathing a couple weeks ago and discovered this ulcer. She states that it does have drainage. She has been covering it with a disposable pad to absorb the drainage. She also states that she has issues with drainage from her umbilicus. It will sometimes have a strong odor and also will bleed on occasion. She states she has seen dermatology and a general surgeon about this and they stated there was not much to do for this. Dermatology has put her on Ketoconazole cream for rashes in skin folds, that she has not recently been using. While examining her it was discovered that she also has an ulcer on her right lateral abdomen and her left lateral abdomen in a skin fold. She states she has a hard time bathing herself due to the weight of her pannus. She has a history of hypothyroidism, pre diabetes, polycystic ovary, asthma, sleep apnea, an ulcer on her left lower leg, and right knee arthritis. Wound culture obtained 09/12/23 at [facility] and was positive for Pseudomonas aeruginosa, Proteus mirabilis, and Corynebacterium striatum. She was treated with Doxycycline before the culture results were back. Will start her on Levaquin. She comes in today for further evaluation of her ulcer. She denies fever, chills, nausea or vomiting. Progress of Wound: Right lateral and left lateral abdominal skin fold ulcers and the lower abdominal ulcer all remain healed. She states that the drainage from her umbilicus has stopped and she is not able to pack it any longer. She states that it stopped about a 1-2 weeks ago. Objective Data Objective Data Vital Signs: Vital Signs Temp Pulse Resp BP Pulse Ox 96.7 F L 90 18 187/88 H 98 08/05/24 08:40 08/05/24 08:40 08/05/24 08:40 08/05/24 08:40 07/07/24 00:23 Weight: 433 lb Body Mass Index (BMI) 72.0 Charges/Coding Visit Charges Office Visits / Consults: 69775 OV L3 Est 20min Physical Exam Const alert and oriented x3 Constitutional Narrative: Very pleasant. General Appearance: cooperative HEENT normocephalic Head and Scalp: atraumatic Eyes General Eye: normal appearance of both eyes Neck full ROM Resp normal respiratory effort, normal air movement and clear to auscultation bilaterally Effort and Inspection: able to speak in complete sentences Cardio regular rate and regular rhythm GI soft to palpation and non-tender GI Narrative: Very large pannus. Back/Spine normal ROM Extremity normal capillary refill General Extremity: edema Skin Wound Narrative: Right lateral and left lateral abdominal skin fold ulcers both remain healed today. Lower abdominal ulcer is also remains healed. She no longer has drainage from her umbilicus. Her umbilicus also does not have any depth at this time. Neuro oriented x3 Psych mental status grossly normal and thought process normal Debridement Note Debridement Note Post-Debridement Measurements and Additional Note: Post-Debridement Measurements/Treatment WC - Nurse 1 - General Ulcer Assessment Start: 08/05/24 08:40 Freq: Status: Active Protocol: [email or web address] Activity Type Activity Date Activity User E-sign Co-sign Detail Recorded Client Recorded Date Recorded By Document 08/05/24 08:40 DL [id number] 08/05/24 08:45 DL 08/05/24 08:40 WC - Today's Visit Information Type of service Follow-up Visit (Physician/STEWARD RACETRACK ) Arrival Mode Wheelchair Transfer Assistance None Patient Identification Verified (Name & Yes ) Patient Requires Transmission-Based No Precautions Height and Weight Body Mass Index (BMI) 72.0 BMI Classification Obese Vital Signs Temperature (97.8 F-99.1 F) 96.7 F L Temperature Source Temporal Pulse Rate (60-100) 90 Pulse Location Monitor Respiratory Rate (12-18) 18 Respiratory rate source Observation Blood Pressure (90/60-120/80) 187/88 H Blood Pressure Mean (mm Hg) 121 Source Monitor History Since Last Visit- (Skip if this is Patient's initial visit) Have you changed medications since your No last visit? Any new allergies or adverse reactions No Had a fall/change in ADL's that may No increase risk of falls Signs or symptoms of abuse and/or No neglect since last visit Have you been in the hospital since your No last visit? Has dressing in place as prescribed Yes Has compression in place as prescribed N/A Has offloadiing in place as prescribed Yes Experienced any changes in pain level or No management Pain Scale: 0-10 Numeric Is Patient Pain Free? Yes WC - Nurse 2 - General Ulcer CM Notes Start: 08/05/24 08:40 Freq: Status: Active Protocol: Activity Type Activity Date Activity User E-sign Co-sign Detail Recorded Client Recorded Date Recorded By Document 08/05/24 08:59 DS [id number] 08/05/24 08:59 DS 08/05/24 08:59 Is Patient Pain Free? Yes Assessment/Plan Assessment/Plan (1) Skin ulcer of abdominal wall with fat layer exposed: CODE(S): L98.492 - Non-pressure chronic ulcer of skin of other sites with fat layer exposed PLAN: Patient evaluated at the wound healing center today. Her ulcers all remain healed and her umbilicus is no longer draining. If her umbilicus starts to drain again, instructed her to start packing it again daily and to come back in to see me. She is to keep the skin under her pannus clean and dry to prevent yeast from coming back. She has home health to help her with her dressing changes 2-3 times per week. She has been approved for home health aid to assist with bathing and meal preparation. Follow up as needed.
--- NOTE | 2024-08-12 10:10 | WC ---
PHOTO 08/05/24 ABD (H)
== END 2024-08-06 23:59 | disposition home or self-care (01) ==
LOC: WC 08:39
PROVIDERS: PCP Preventive Medicine Occupational Medicine; Referring Provider Physician Assistant; Visit Provider Nurse Practitioner Family
DX: Z09 Encounter for follow-up examination after completed treatment for conditions other than malignant neoplasm (principal); R26.2 Difficulty in walking, not elsewhere classified; R73.03 Prediabetes; E03.9 Hypothyroidism, unspecified; M17.11 Unilateral primary osteoarthritis, right knee; Z79.84 Long term (current) use of oral hypoglycemic drugs; Z79.890 Hormone replacement therapy; Z79.899 Other long term (current) drug therapy
CPT/HCPCS: 99213; G0463

== ENCOUNTER 2024-08-28 11:05 | Outpatient (RCR) | payer MEDICAID, SELFPAY ==
--- NOTE | 2024-08-28 12:53 | HP.PTEVAL_ITS ---
Patient's Visit Information Visit Information Visit Information: JUAN TAYLOR is a 49 year old F referred to Physical Therapy by Dr. Rian Blanco DO with a diagnosis of IMPAIRED MOBILITY ,MORBID OBESITY. Date of Evaluation: 08/28/24 Physical Therapist: Raymon Goff PT, Cert MDT, OCS Visit Plan Frequency: 1 vist Plan: This patient will benefit from power w/c due to inability to walk short distances due to pain and weakness decrease safe gait ,decrease balance with risk of falls ,weakness in Bilateral legs . Patient is unable to use walker due to pain ,weakness ,and progressive left shoulder pain with apparent DJD with usafe .Patient is unable to use scooter to poor ability to ability to operate [email or web address] system. Patient has poor ability to propel w/c due to left shoulder pain and knee pain thus affects ability to do ADL. Patient power w/c will significantly improve the ability to participate in MRADL'S. Patient expressed willing's and to use power w/c in home to perform ADL's . Thus power w/c will optimize patient function Independance Subjective Subjective: This 49 y/o female presents to physical therapy with w/c evaluation with impaired mobility. Patient is needing power w/c . Patient seen DR recently seen DR aleksander W/C. Patient currently uses manual w/c difficulty with propel w/c due to shoulder left OA. Patient slight level entrance to house. Patient has tub /shower .Patient has [employer]ER to assist 5 hrs day 6 days week with ADLS ,cleaning ,laundry ,assist with bathing. Patient has hospital bed bariatric back .Patient has bilateral knee pain global pain ,throbbiNg ache < 5 mins. Walking affects back pain < 5min. Pain in shoulder global left. Patient has been in wound care 10 months wound center to decubiti ulcer abdominal region. Patient n eeds assist with putting on shoes . Patient stays in w/c 10-12 hrs. Patient will use power w/c all day. No falls last episode last years. SOCAIL: lives friend SOCIAL: Disability Pain Bilateral Back: Pain Intensity (Out of 10): 5 Pain Intensity Range: 10 Bilateral Knee: Pain Intensity (Out of 10): 7 Pain Intensity Range: 10 Objective Objective: POSTURE: mild forward posture posterior pelvic tilt PALPATION: unremarkable NEURO: denies paresthesia/tingling AROM: knee flexion 5-95 degrees ,hip flexion 85 degrees ,hip abduction 30 degrees LUMBAR ROM: flexion mod loss ,extension mod/severe loss ,side glides min/mod loss MMT: quads/hams 4-/5 ,hip flexion 3+/5 ,ankle 4/5 AROM: shoulder flexion left poor ,right 130 degrees otherwise WFL MMT: BUE right 4-/5 shoulder otherwise 4/5,left shoulder 2/5 TRANSFERS: MOD I sit-stand and pivot SITTING BALANCE: good- STANDING/DYNAMIC : FAIR GAIT: ambulates short distances limited due to weakness ,pain back/knee Special Tests L/S Slump test left side: Negative L/S Slump test right side: Negative L/S Left Straight Leg Raise: Negative L/S Right Straight Leg Raise: Negative Goals Goal 1:: Patient recommend power w/c to maintain independent level. Goal Time Frame: 1 visit Rehabilitation Potential Physical Therapy Diagnosis: This patient will benefit from power w/c due to inability to walk short distances due to pain and weakness decrease safe gait ,decrease balance with risk of falls ,weakness in Bilateral legs . Patient is unable to use walker due to pain ,weakness ,and progressive left shoulder pain with apparent DJD with usafe .Patient is unable to use scooter to poor ability to ability to operate [employer]com[employer] system. Patient has poor ability to propel w/c due to left shoulder pain and knee pain thus affects ability to do ADL. Patient power w/c will significantly improve the ability to participate in MRADL'S. Patient expressed willing's and to use power w/c in home to perform ADL's . Thus power w/c will optimize patient function Independance Rehabilitation Potential: Fair Anticipated Interventions Patient/Client Instruction: Educate patient on: Condition and Plan of Care For the Purpose of:: Other Other: power w/c Text: Thank you for the opportunity to evaluate your patient. For Medicare and Medicare HMO plans, please review the plan of care and approve it. It will need to be FAXED BACK to us at [phone] for Medicare purposes. For Medicare only, by signing this I certify the plan of care. Please let me know if there are questions or concerns regarding this plan of care. Physician Signature: Date:
== END 2024-08-28 19:00 | disposition home or self-care (01) ==
LOC: PT 11:05
PROVIDERS: PCP Preventive Medicine Occupational Medicine; Referring Provider Preventive Medicine Occupational Medicine; Visit Provider Preventive Medicine Occupational Medicine
DX: E66.01 Morbid (severe) obesity due to excess calories (principal); Z74.09 Other reduced mobility
CPT/HCPCS: 97162

== ENCOUNTER 2024-10-25 10:30 | Outpatient (RCR) | payer MEDICAID, SELFPAY ==
--- NOTE | 2024-09-25 12:12 | HP.PTEVAL_ITS ---
Patient's Visit Information Visit Information Visit Information: JUAN TAYLOR is a 49 year old F referred to Physical Therapy by Dr. Junior Hansen DO with a diagnosis of LEFT ROTATOR CUFF TEAR ,CHRONIC. Date of Evaluation: 09/25/24 Physical Therapist: Raymon Goff, PT, Cert MDT, OCS Visit Plan Frequency: 2x /Week Duration: 4 Weeks Plan: POSSIBLE RTC TEAR PT INTERVENTIONS RTC/SCAPULAR STRENGTHENING ,ROM ,POSTURAL EX'S AND MODALTIES Subjective Subjective: This 49 y/o female presents to physical therapy with left shoulder pain. Patient has left shoulder pain for ~ [address] . [address] jenkins x-rays showed DJD . Did cortisone injection helped for ~ days. Pain located global left shoulder deltoid. Aggravating factors with inability to raise arm ,lifting affects ADLS and self hygiene.Alleviating factors heat ,lidocaine and flexeril . Patient pain affects sleeping . Denies paresthesia/tingling -. No trauma or injury. 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 Patient driving. Patient RTD 3 months possible MRI. Patient condition affects QOL and function. Patient goals to decrease function and decrease pain. SOCIAL: partner Pain Left: Pain Intensity (Out of 10): 9 Pain Intensity Range: 10 Left Shoulder: Pain Intensity (Out of 10): 9 Pain Intensity Range: 10 Objective Objective: POSTURE: mild forward posture GAIT: short distances uses manual w/c NEURO: denies paresthesia/tingling PALAPTION: tender AC AROM: shoulder flexion 100 degrees ,abduction in scaption 100 degrees ,ER ,80 Degrees ,IR 70 degrees PROM: flexion 140 flexion ,abduction in scapular 140 degrees CAPSULAR RESRICTION: mild/mod G-H tightness MMT: infraspinatus 8.7 ,supraspinatus 9.8 ,subscapularis 10.8 ,deltoid 5.9 pain Special Tests L Shoulder External Rotation Lag Test - RC Tear: Negative L Shoulder Lift Off Test - Subscapular Tear: Negative L Shoulder Drop Sign - IS Test: Positive L Shoulder Empty Can - SS: Positive L Shoulder Belly Press - SupScap: Negative L Shoulder Neer - Impingement: Positive L Shoulder Verdin Rizwan - Impingement: Positive L Shoulder Speeds Test - Labrum/Biceps: Negative Balance/Special Test Scores Quick DASH Score: 52.2725 Goals Goal 1:: Patient to br I with HEP for shoulder Goal Time Frame: 4-6 Weeks Goal 2:: Patient to demonstrate 40% improvement with less pain and improved function Goal Time Frame: 4-6 Weeks Goal 3:: Patient to improve AROM shoulder flexion/abduction by 120 degrees to improve ADLS and activities above 90- degrees Goal Time Frame: 4-6 Weeks Goal 4:: Patient to improve peak force RTC and deltoid by 5# force to improve function with OH activities Goal Time Frame: 4-6 Weeks Goal 5:: Patient to improve back oswestry score by 5 points to improve QOL and function Goal Time Frame: 4-6 Weeks Rehabilitation Potential Physical Therapy Diagnosis: Patient appears to have possible left shoulder RTC tear with pain ,decrease ROM weakness impairs ADLS/self hygiene and housework tasks thus benefit from skilled PT Rehabilitation Potential: Good Anticipated Interventions Patient/Client Instruction: Educate patient on: Condition and Plan of Care For the Purpose of:: To decrease pain, To increase ROM, To improve nutrient delivery to tissue, To increase oxygenation perfusion, To improve muscle performance and motor function, To improve ability to perform ADL's, To increase tolerance to activity/condition/position, To improve performance and independence with ADL's, To improve ability of physical actions for home/community/work/leisure, To improve health of tissue, To decrease soft tissue restriction, To increase flexibility/ROM and To improve tolerance to ADL's Therapeutic Exercise to Include: Strength training, Postural training, Flexibilty training, Passive ROM and Active ROM For the Purpose of:: To decrease pain, To increase ROM, To improve nutrient delivery to tissue, To increase oxygenation perfusion, To improve health of tissue, To decrease soft tissue restriction, To increase flexibility/ROM, To prevent re-injury and To improve tolerance to ADL's Manual Therapy Techniques to Include: Mobilization and Passive ROM Comment: G-H For the Purpose of:: To decrease pain, To increase ROM, To improve health of tissue, To decrease soft tissue restriction and To increase flexibility/ROM TENS: Yes IF ES: Yes Cryotherapy (ice pack, ice massage): Yes Thermo therapy (hot pack): Yes Ultrasound (thermal/non thermal): Yes For the Purpose of:: To decrease pain, To increase ROM, To improve nutrient delivery to tissue, To increase oxygenation perfusion, To improve health of tissue and To decrease soft tissue restriction Text: Thank you for the opportunity to evaluate your patient. For Medicare and Medicare HMO plans, please review the plan of care and approve it. It will need to be FAXED BACK to us at [phone] for Medicare purposes. For Medicare only, by signing this I certify the plan of care. Please let me know if there are questions or concerns regarding this plan of care. Physician Signature: Date:
--- NOTE | 2024-10-25 11:06 | HP.PTDCSUM ---
Discharge Summary D/C summary: It has been my pleasure to treat JUAN TAYLOR referred by Dr. Junior Hansen DO, with the diagnosis of LEFT ROTATOR CUFF TEAR ,CHRONIC for a total of 9 visit(s). Discharge Date: 10/25/24 Please see the following information for a summary of their discharge status. Subjective Subjective: Patient will try to do ex's at home will f/u with next month Pain Left: Pain Intensity (Out of 10): 9 Left Shoulder: Pain Intensity (Out of 10): 4 Overall Improvement % Improvement: 30 Objective Objective/Function: POSTURE: mild forward posture MOBILITY: PMD for mobility NEURO: denies paresthesia/tingling PALAPTION: tender AC AROM: shoulder flexion 100 degrees ,abduction in scaption 100 degrees ,ER ,80 Degrees ,IR 70 degrees PROM: flexion 150 flexion ,abduction in scapular 150 degrees CAPSULAR RESRICTION: mild/mod G-H tightness MMT: infraspinatus 8.9 ,supraspinatus 10.8 ,subscapularis 10.8 ,deltoid 5.9 pain Goals Goal 1:: Patient to br I with HEP for shoulder Goal Progress: Progressing Goal 2:: Patient to demonstrate 40% improvement with less pain and improved function Goal Progress: Progressing Goal 3:: Patient to improve AROM shoulder flexion/abduction by 120 degrees to improve ADLS and activities above 90- degrees Goal Progress: Progressing Goal 4:: Patient to improve peak force RTC and deltoid by 5# force to improve function with OH activities Goal Progress: Progressing Goal 5:: Patient to improve back oswestry score by 5 points to improve QOL and function Plan Plan: D/C D/C Information Discharge Comments: HEP AND RTD d/c sentence: If there are questions or concerns regarding this patient's physical therapy, please feel free to call me at [phone]. Thank you for the referral of this patient. Sincerely, Raymon Goff, PT, Cert MDT, OCS Balance/Gait/Functional tests Balance/Special Test Scores Quick DASH Score: 45.4525 Improvement % Improvement: 30
== END 2024-10-25 19:00 | disposition home or self-care (01) ==
LOC: PT 10:30
PROVIDERS: PCP Preventive Medicine Occupational Medicine; Referring Provider Orthopaedic Surgery Orthopaedic Surgery of the Spine; Visit Provider Orthopaedic Surgery Orthopaedic Surgery of the Spine
DX: M75.102 Unspecified rotator cuff tear or rupture of left shoulder, not specified as traumatic (principal)
CPT/HCPCS: 97110; 97162; 97530

== ENCOUNTER 2025-01-23 13:30 | Outpatient (RCR) | payer MEDICAID, SELFPAY ==
[2024-08-07 00:15] VITALS: BP 163/76; PULSE 77; RESP 16; TEMP 36.1; O2SAT 98; BMI 72.0
[2025-01-16 09:30] VITALS: BP 168/92; PULSE 65; RESP 18; TEMP 36.6; BMI 72.0
--- NOTE | 2025-01-16 12:26 | HP.PCM_ITS ---
History of Present Illness Date of Service: 01/16/25 Chief Complaint: Abdominal wall Ulcer History of Wound: Ms. Lazo is a 49-year-old who presents to the wound center due to abdominal wall ulcer. Has been seen here in the past and last seen here in July following healing. She states that she noted reopening of the area over a week ago. Since noting, had some silver cell at home which she started reapplying. Difficulty with visualizing the area. Had home health however, she states that her home health does not come in anymore. No known history of diabetes. She states that she is unable to eat healthy due to cost. History of morbid obesity, current BMI of 72.1. Not ambulatory. Otherwise, she states that she feels well. No chills, fever or change in bowel habit. [facility] Medical History (Reviewed 05/30/24 @ 13:22 by Evi Richard COMPLIANCE REVIEW OFFICER, COMPLIANCE REVIEW OFFICER-C) Family history of vitamin B12 deficiency History of vitamin D deficiency History of thyroid disease History of polycystic ovarian disease History of osteoarthritis History of high cholesterol History of hypertension History of bladder infections History of back problems History of arthritis History of environmental allergies Pre-diabetes Pseudomonas aeruginosa infection Recent weight loss Pressure ulcer of other site, unspecified stage 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 Morbid obesity with BMI of 70 and over, adult Panniculitis Intertrigo Yeast infection of the skin Skin ulcer of abdominal wall with fat layer exposed Decubitus skin ulcer Abdominal pannus Bursitis, prepatellar, right Osteoarthritis of right knee Right knee pain Seasonal allergies Hyperlipidemia Depressive disorder Polycystic ovarian disease Hypothyroid Asthma KATEY (obstructive sleep apnea) HTN (hypertension) Home Medications ?Medication ?Instructions ?Recorded ?Last Taken ?Type metoprolol tartrate 50 mg tablet 100 mg PO BID 5 Unknown History norethindrone acetate 5 mg tablet 5 mg PO DAILY Unknown History metformin 500 mg tablet 1,500 mg PO DAILY 11/02/17 U nknown History albuterol sulfate 90 mcg/actuation 2 puff inhalation Q 6H PRN 11/07/17 Unknown Rx aerosol inhaler shortness of breath or wheez ing #1 device montelukast 10 mg tablet 10 mg PO DAILY #30 tabs 10/22 Unknown Rx cyanocobalamin (vitamin B-12) 1,000 mcg PO DAILY 05/09 /20 Unknown History 1,000 mcg capsule cyclobenzaprine 10 mg tablet 10 mg PO TID PRN Muscle S pasm 12/14/19 Unknown History levothyroxine 50 mcg tablet 50 mcg PO DAILY 12/14/19 U nknown History pravastatin 40 mg tablet 40 mg PO DAILY 12/14/19 Unkn own History loratadine 10 mg tablet (Allergy 10 mg PO DAILY PRN Unknown History Relief (loratadine)) bupropion HCl 75 mg tablet 75 mg PO ONCE 11/03/22 Unkn own History mirabegron 25 mg tablet,extended 50 mg PO DAILY Unknown History release 24 hr (Myrbetriq) naltrexone 50 mg tablet 50 mg PO DAILY 11/03/22 Unkn own History acetaminophen 650 mg 650 mg PO Q8H 05/05/23 Unkno wn History tablet,extended release lidocaine 5 % topical patch 1 patch topical DAILY PRN 05/05/23 Unknown History promethazine-DM oral syrup ea PO DAILY PRN 05/05/23 Un known History vitamin K2 100 mcg capsule 100 mcg PO DAILY 05/30/23 U nknown History dapagliflozin propanediol 10 mg 10 mg PO DAILY 4 Unknown History tablet (Farxiga) loratadine 10 mg tablet (Allergy 10 mg PO DAILY Unknown History Relief (loratadine)) metformin 500 mg tablet 500 mg PO DAILY 03/22/24 Unk nown History hydralazine 25 mg tablet 25 mg PO TID 05/30/24 Unknow n History isosorbide mononitrate 10 mg tablet 10 mg PO DAILY Unknown History nystatin 100,000 unit/gram topical 1 applic topical BI D PRN 01/16/25 Unknown History powder Allergy/AdvReac Type Severity Reaction Status Date / Time animal dander Allergy Mild Itching Verified 05/30/24 12:45 grass pollen Allergy Mild Itching Verified 05/30/24 12:45 dulaglutide (From [facility]) AdvReac Intermediate Nausea Verified 05/30/24 12:45 Family History (Reviewed 05/30/24 @ 13:22 by Evi Richard COMPLIANCE REVIEW OFFICER, COMPLIANCE REVIEW OFFICER-C) Mother CVA (cerebral vascular accident) Asthma Diabetes Father Diabetes Hypertension Grandmother Heart disease Alcohol abuse Grandfather Cancer Surgical History (Reviewed 05/30/24 @ 13:22 by Evi Richard COMPLIANCE REVIEW OFFICER, COMPLIANCE REVIEW OFFICER-C) History of tonsillectomy H/O adenoidectomy Social History (Reviewed 05/30/24 @ 13:22 by Evi Richard COMPLIANCE REVIEW OFFICER, COMPLIANCE REVIEW OFFICER-C) Smoking Status: Never smoker alcohol intake: never substance use type: does not use additional social history: denies vaping, denies marijuana use, denies edibles, denies aspirin and ibuprofen use. ROS Constitutional Constitutional: Denies change in weight, chills, fatigue, fever(s), frequent falls, headache(s) or lethargy Eyes Eyes: Denies change in eye color, change in vision, decreased night vision, diplopia or discharge from eye(s) ENT HEENT: Denies dysphagia, facial pain, foreign body in nose, halitosis, headache(s) or hearing loss Cardiovascular Cardiovascular: Denies bluish discoloration of hand/feet, chest pain, claudication, clubbing, cold extremities or cyanosis Respiratory/Chest Respiratory/Chest: Denies difficulty clearing secretions, dry cough, excessive phlegm production, hemoptysis or hoarseness Gastrointestinal Gastrointestinal: Denies belching, bloating, chewing difficulty, coffee ground emesis, dry heaves or excessive flatus Genitourinary Genitourinary: Denies abdominal discomfort, burning urination, contractions or flank pain Musculoskeletal Musculoskeletal: Reports difficulty walking and extremity pain; Denies joint stiffness, muscle spasms, tingling or tremors Integumentary Integumentary: Denies alopecia, change in pigmentation, furuncle, hirsutism, jaundice or pruritus Neurologic Neurologic: Denies abnormal speech, behavior changes, burning sensations, disequilibrium, frequent falls, tingling or tremor(s) Psychiatric Psychiatric: Denies auditory hallucinations, behavioral changes, homicidal ideation, hopelessness, tactile hallucinations or visual hallucinations Endocrine Endocrinology: Denies cold intolerance, deepening of the voice, excessive sweating, heat intolerance, increase in ring/shoe/hat size or palpitations Hematologic/Lymphatic Hematologic/Lymphatic: Denies anemia, easy bleeding or easy bruising Allergic/Immunologic Allergic/Immunologic: Denies seasonal rhinorrhea, rhinitis, throat swelling, tongue swelling, hives, urticaria or wheezing Vital Signs Vital Signs Vital Signs: 01/16/25 09:30 Temperature 97.8 F Temperature Source Temporal Pulse Rate 65 Respiratory Rate 18 Blood Pressure 168/92 H Blood Pressure Mean 117 Blood Pressure Source Monitor Blood Pressure Position Sitting Blood Pressure Location Left Forearm Oxygen Delivery Method Room Air Weight Weight: 433 lb Body Mass Index (BMI) 72.0 Physical Exam Const alert, oriented x3 and no apparent distress General Appearance: cooperative, comfortable and well kempt HEENT normocephalic and head/scalp atraumatic Eyes EOMs intact bilaterally General Eye: normal appearance of both eyes Neck full ROM General: normal visual inspection Resp normal respiratory effort and normal air movement Effort and Inspection: able to speak in complete sentences Cardio regular rate, regular rhythm, S1 normal heart sound and S2 normal heart sound GI soft to palpation and non-tender Inspection: central obesity and pannus present Extremity no pedal edema Skin Wounds: wounds noted size Size: See clinical note, bed with slough, margins well approximated, open and surrounding erythema
--- NOTE | 2025-01-16 12:26 | PCM.WC.HP ---
History of Present Illness Date of Service: 01/16/25 Chief Complaint: Abdominal wall Ulcer History of Wound: Ms. Lazo is a 49-year-old who presents to the wound center due to abdominal wall ulcer. Has been seen here in the past and last seen here in July following healing. She states that she noted reopening of the area over a week ago. Since noting, had some silver cell at home which she started reapplying. Difficulty with visualizing the area. Had home health however, she states that her home health does not come in anymore. No known history of diabetes. She states that she is unable to eat healthy due to cost. History of morbid obesity, current BMI of 72.1. Not ambulatory. Otherwise, she states that she feels well. No chills, fever or change in bowel habit. [facility] Medical History (Reviewed 05/30/24 @ 13:22 by Evi Richard RUBBER COMPOUNDER SUPERVISOR, RUBBER COMPOUNDER SUPERVISOR-C) Family history of vitamin B12 deficiency History of vitamin D deficiency History of thyroid disease History of polycystic ovarian disease History of osteoarthritis History of high cholesterol History of hypertension History of bladder infections History of back problems History of arthritis History of environmental allergies Pre-diabetes Pseudomonas aeruginosa infection Recent weight loss Pressure ulcer of other site, unspecified stage 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 Morbid obesity with BMI of 70 and over, adult Panniculitis Intertrigo Yeast infection of the skin Skin ulcer of abdominal wall with fat layer exposed Decubitus skin ulcer Abdominal pannus Bursitis, prepatellar, right Osteoarthritis of right knee Right knee pain Seasonal allergies Hyperlipidemia Depressive disorder Polycystic ovarian disease Hypothyroid Asthma KATEY (obstructive sleep apnea) HTN (hypertension) Home Medications ?Medication ?Instructions ?Recorded ?Last Taken ?Type metoprolol tartrate 50 mg tablet 100 mg PO BID 09/23/14 Unknown History norethindrone acetate 5 mg tablet 5 mg PO DAILY 07/08/16 Unknown History metformin 500 mg tablet 1,500 mg PO DAILY 11/02/17 Unknown History albuterol sulfate 90 mcg/actuation 2 puff inhalation Q6H PRN 11/07/17 Unknown Rx aerosol inhaler shortness of breath or wheezing #1 device montelukast 10 mg tablet 10 mg PO DAILY #30 tabs 11/07/17 Unknown Rx cyanocobalamin (vitamin B-12) 1,000 mcg PO DAILY 12/14/19 Unknown History 1,000 mcg capsule cyclobenzaprine 10 mg tablet 10 mg PO TID PRN Muscle Spasm 12/14/19 Unknown History levothyroxine 50 mcg tablet 50 mcg PO DAILY 12/14/19 Unknown History pravastatin 40 mg tablet 40 mg PO DAILY 12/14/19 Unknown History loratadine 10 mg tablet (Allergy 10 mg PO DAILY PRN 08/11/22 Unknown History Relief (loratadine)) bupropion HCl 75 mg tablet 75 mg PO ONCE 11/03/22 Unknown History mirabegron 25 mg tablet,extended 50 mg PO DAILY 11/03/22 Unknown History release 24 hr (Myrbetriq) naltrexone 50 mg tablet 50 mg PO DAILY 11/03/22 Unknown History acetaminophen 650 mg 650 mg PO Q8H 05/05/23 Unknown History tablet,extended release lidocaine 5 % topical patch 1 patch topical DAILY PRN 05/05/23 Unknown History promethazine-DM oral syrup ea PO DAILY PRN 05/05/23 Unknown History vitamin K2 100 mcg capsule 100 mcg PO DAILY 05/30/23 Unknown History dapagliflozin propanediol 10 mg 10 mg PO DAILY 01/10/24 Unknown History tablet (Farxiga) loratadine 10 mg tablet (Allergy 10 mg PO DAILY 03/22/24 Unknown History Relief (loratadine)) metformin 500 mg tablet 500 mg PO DAILY 03/22/24 Unknown History hydralazine 25 mg tablet 25 mg PO TID 05/30/24 Unknown History isosorbide mononitrate 10 mg tablet 10 mg PO DAILY 05/30/24 Unknown History nystatin 100,000 unit/gram topical 1 applic topical BID PRN 01/16/25 Unknown History powder Allergy/AdvReac Type Severity Reaction Status Date / Time animal dander Allergy Mild Itching Verified 05/30/24 12:45 grass pollen Allergy Mild Itching Verified 05/30/24 12:45 dulaglutide (From [facility]) AdvReac Intermediate Nausea Verified 05/30/24 12:45 Family History (Reviewed 05/30/24 @ 13:22 by Evi Richard RUBBER COMPOUNDER SUPERVISOR, RUBBER COMPOUNDER SUPERVISOR-C) Mother CVA (cerebral vascular accident) Asthma Diabetes Father Diabetes Hypertension Grandmother Heart disease Alcohol abuse Grandfather Cancer Surgical History (Reviewed 05/30/24 @ 13:22 by Evi Richard RUBBER COMPOUNDER SUPERVISOR, RUBBER COMPOUNDER SUPERVISOR-C) History of tonsillectomy H/O adenoidectomy Social History (Reviewed 05/30/24 @ 13:22 by Evi Richard RUBBER COMPOUNDER SUPERVISOR, RUBBER COMPOUNDER SUPERVISOR-C) Smoking Status: Never smoker alcohol intake: never substance use type: does not use additional social history: denies vaping, denies marijuana use, denies edibles, denies aspirin and ibuprofen use. ROS Constitutional Constitutional: Denies change in weight, chills, fatigue, fever(s), frequent falls, headache(s) or lethargy Eyes Eyes: Denies change in eye color, change in vision, decreased night vision, diplopia or discharge from eye(s) ENT HEENT: Denies dysphagia, facial pain, foreign body in nose, halitosis, headache(s) or hearing loss Cardiovascular Cardiovascular: Denies bluish discoloration of hand/feet, chest pain, claudication, clubbing, cold extremities or cyanosis Respiratory/Chest Respiratory/Chest: Denies difficulty clearing secretions, dry cough, excessive phlegm production, hemoptysis or hoarseness Gastrointestinal Gastrointestinal: Denies belching, bloating, chewing difficulty, coffee ground emesis, dry heaves or excessive flatus Genitourinary Genitourinary: Denies abdominal discomfort, burning urination, contractions or flank pain Musculoskeletal Musculoskeletal: Reports difficulty walking and extremity pain; Denies joint stiffness, muscle spasms, tingling or tremors Integumentary Integumentary: Denies alopecia, change in pigmentation, furuncle, hirsutism, jaundice or pruritus Neurologic Neurologic: Denies abnormal speech, behavior changes, burning sensations, disequilibrium, frequent falls, tingling or tremor(s) Psychiatric Psychiatric: Denies auditory hallucinations, behavioral changes, homicidal ideation, hopelessness, tactile hallucinations or visual hallucinations Endocrine Endocrinology: Denies cold intolerance, deepening of the voice, excessive sweating, heat intolerance, increase in ring/shoe/hat size or palpitations Hematologic/Lymphatic Hematologic/Lymphatic: Denies anemia, easy bleeding or easy bruising Allergic/Immunologic Allergic/Immunologic: Denies seasonal rhinorrhea, rhinitis, throat swelling, tongue swelling, hives, urticaria or wheezing Vital Signs Vital Signs Vital Signs: 01/16/25 09:30 Temperature 97.8 F Temperature Source Temporal Pulse Rate 65 Respiratory Rate 18 Blood Pressure 168/92 H Blood Pressure Mean 117 Blood Pressure Source Monitor Blood Pressure Position Sitting Blood Pressure Location Left Forearm Oxygen Delivery Method Room Air Weight Weight: 433 lb Body Mass Index (BMI) 72.0 Physical Exam Const alert, oriented x3 and no apparent distress General Appearance: cooperative, comfortable and well kempt HEENT normocephalic and head/scalp atraumatic Eyes EOMs intact bilaterally General Eye: normal appearance of both eyes Neck full ROM General: normal visual inspection Resp normal respiratory effort and normal air movement Effort and Inspection: able to speak in complete sentences Cardio regular rate, regular rhythm, S1 normal heart sound and S2 normal heart sound GI soft to palpation and non-tender Inspection: central obesity and pannus present Extremity no pedal edema Skin Wounds: wounds noted size Size: See clinical note, bed with slough, margins well approximated, open and surrounding erythema Neuro oriented x3, CN's II-XII intact bilaterally, moves all extremities and no focal motor deficits Psych mental status grossly normal, thought process normal, cooperative and affect normal Debridement Note Debridement Note Wound debrided: Abdominal pannus/lower abdomen Type of Debridement: Excisional debridement Anesthesia Used: 5% Lidocaine Gel Depth: Down to and including healthy tissue and in the subcutaneous layer Percentage of wound debrided: 100 Instrument Used: 5mm curette Tissue Removed: Slough and devitalized tissue Severity: Fat Layer Exposed Amount of bleeding with debridement: Mild Bleeding Controlled with: Pressure Patient tolerated procedure: Patient tolerated procedure well Post-Debridement Measurements and Additional Note: Post-Debridement Measurements/Treatment WC - Nurse 1 - General Ulcer Assessment Start: 01/16/25 09:30 Freq: Status: Active Protocol: [email or web address] Activity Type Activity Date Activity User E-sign Co-sign Detail Recorded Client Recorded Date Recorded By Document 01/16/25 09:30 DS [id number] 01/16/25 09:32 DS 01/16/25 09:30 Height and Weight Body Mass Index (BMI) 72.0 BMI Classification Obese Vital Signs Temperature (97.8 F-99.1 F) 97.8 F Temperature Source Temporal Pulse Rate (60-100) 65 Respiratory Rate (12-18) 18 Respiratory rate source Observation Oxygen Delivery Method Room Air Blood Pressure (90/60-120/80) 168/92 H Blood Pressure Mean 117 Source Monitor Position Sitting Blood Pressure Location Left Forearm Pain Scale: 0-10 Numeric Is Patient Pain Free? Yes Communication Assessment Preferred language Algerian Able to Read Yes Able to Write Yes Right Hearing Abillity Normal Left Hearing Abillity Normal Visual Assistive Devices Glasses Teaching Assessment Preferences Verbal,Written, Demonstration Barriers to Learning None,Unable to Comprehend Readiness To Learn Excellent Willingness to Engage in Self Management High Activies Readiness to Engage in Self Management High Activities Anxiety Level Calm Cooperation Cooperative Perception Coherent Interest in Health Problem Asks Questions Education Importance Acknowledges Need Does Patient Smoke tobacco or other No substances Is Patient Diabetic No Functional Assessment Recent Decline in Ability to Perform Denies Any Declines Culture/Baptist/System Technologist Cultural/Baptist Needs that may affect No Treatment Plan Teaching: Wound Center *Welcome to the Wound Center -Person Taught Patient -Teaching Method Discussion -Response to teaching Verbalize Understanding MALENA - Nurse 1 - General Ulcer Measurement Start: 01/16/25 09:30 Freq: Status: Active Protocol: Activity Type Activity Date Activity User E-sign Co-sign Detail Recorded Client Recorded Date Recorded By Document 01/16/25 09:41 DS [id number] 01/16/25 09:47 DS 01/16/25 09:41 Wound Center Nurse 1 #8 mid abd -Current Size (cm) - Length 1.1 -Current Size (cm) - Width 0.6 -Current Size (cm) - Depth 0.1 -Total Square Cm 0.66 -Date of Last Picture (Recall this 01/16/25 field) -Photo Taken Yes -Tunneling No -Undermining/Tunneling No -Circular Undermining No -Exudate Amt None Present -Wound Margin Distinct, Outline Attached -Granulation Amt Medium (34-66%) -Granulation Quality [place] -Necrosis Amt Small (1-33%) -Necrotic Tissue Type Adherent Slough -Texture (Sera-wound Skin Appearance) Assessed -Moisture (Sera-wound Skin Appearance) Assessed -Color (Sera-wound Skin Appearance) Assessed -Temperature (Sera-wound Skin No Abnormality Appearance) (Pt Warm) -Tenderness on Palpation (Sera-wound No Skin Appearance) -Ulcer Cleansing Soap and Water -Foul Odor after Cleansing No -Anesthetic Used 5% Lidocaine Gel MALENA - Nurse 2 - General Ulcer CM Notes Start: 01/16/25 09:30 Freq: Status: Active Protocol: Activity Type Activity Date Activity User E-sign Co-sign Detail Recorded Client Recorded Date Recorded By Document 01/16/25 10:08 [id number] 01/16/25 10:12 01/16/25 10:08 Wound Center Nurse 2 -Time 10:08 -Correct Patient Yes -Correct Side, Site, Position Yes -Correct Procedure Yes -Procedure Performed Yes -Type of Procedure Debridement -Clinical Debridement Subcutaneous -Tissue Removed Subcutaneous -Post Debridement (cm) - Length 1.2 -Post Debridement (cm) - Width 0.9 -Post Debridement (cm) - Depth 0.1 -Total Square (Post) (cm) 1.08 -Area of Debridement (cm) - Length 1.2 -Area of Debridement (cm) - Width 0.9 -Total Square (Area) (cm) 1.08 -Tunneling No -Undermining/Tunneling No -Circular Undermining No -Wound/Ulcer Outcome Not Healed -Ulcer Cleansing Rinsed/ Irrigated with Saline -Foul Odor after Cleansing No -Bioengineered Tissue No -Bleeding Controlled with Pressure -Treatment Response Procedure Tolerated Well -Offloading No -Debridement - Subq, 1st 20sq cm Yes Pain Scale: 0-10 Numeric Is Patient Pain Free? Yes - Nurse 3 - General Ulcer D/C NN Start: 01/16/25 09:30 Freq: Status: Active Protocol: Activity Type Activity Date Activity User E-sign Co-sign Detail Recorded Client Recorded Date Recorded By Document 01/16/25 10:27 [id number] 01/16/25 10:28 01/16/25 10:27 Wound Care Center Nurse 3 #8 mid abd -Ulcer Cleansing Rinsed/ Irrigated with Saline -Primary Dressing Applied Silvercel -Primary Dressing Covered/Secured with Dry Gauze, Secured with Tape -Silvercel 1 Treatment Response Procedure Tolerated Well Pain Scale: 0-10 Numeric Is Patient Pain Free? Yes - Visit Discharge Discharge Condition Stable Ambulatory Status Wheelchair Transportation Private Auto Accompanied by daughter Medication Reconcilliation completed & No provided to patient/care provider Clinical Summary of Care Provided Yes Charges/Coding Visit Charges Office Visits / Consults: 97304 OV L4 New 45min Procedures Integumentary [id number]: [id number] Silvia subq tissue 20 sq cm/< Assessment/Plan Assessment/Plan (1) Skin ulcer of abdominal wall with fat layer exposed: CODE(S): L98.492 - Non-pressure chronic ulcer of skin of other sites with fat layer exposed (2) Morbid obesity with BMI of 70 and over, adult: CODE(S): E66.01 - Morbid (severe) obesity due to excess calories; Z68.45 - Body mass index [BMI] 70 or greater, adult (3) Intertrigo: CODE(S): L30.4 - Erythema intertrigo (4) Abdominal pannus: CODE(S): E65 - Localized adiposity (5) Decubitus skin ulcer: CODE(S): L89.90 - Pressure ulcer of unspecified site, unspecified stage PLAN: Plan Debridement done as documented above, procedure was well-tolerated. Cultures taken, will review. No significant clinical sign of infection however significant pannus, skin on skin, foul smell per intake nurse on initial examination. History of poor hygiene. As above, she states that she has a large amount of silver cell at home and this is what helped achieve wound healing in the past. Apply silver cell daily, cover with foam dressing. Very lengthy discussion had with patient about pannus and moisture management. Keep area dry, wear clothing that absorbs moisture. She voiced understanding. Due to cost, she states that she is unable to maintain a healthy diet. Adequate protein intake recommended. Her questions were answered and she was advised to let us know if she had any further questions or concerns. Follow-up in a week or sooner if needed. This note was generated with [employer] dictation software. It may contain incorrect words, spelling, and punctuation that were not noted in checking the note before signing.
--- NOTE | 2025-01-17 08:28 | WC ---
PHOTO 01/16/25 MID ABD
[2025-01-23 13:24] VITALS: BP 170/82; PULSE 80; RESP 18; TEMP 36.2; BMI 72.0
--- NOTE | 2025-01-23 14:13 | PN.PCM_ITS ---
History of Present Illness Date of Service: 01/23/25 Chief Complaint: Abdominal wall Ulcer History of Wound: Ms. Lazo is a 49-year-old who presents to the wound center due to abdominal wall ulcer. Has been seen here in the past and last seen here in July following healing. She states that she noted reopening of the area over a week ago. Since noting, had some silver cell at home which she started reapplying. Difficulty with visualizing the area. Had home health however, she states that her home health does not come in anymore. No known history of diabetes. She states that she is unable to eat healthy due to cost. History of morbid obesity, current BMI of 72.1. Not ambulatory. Otherwise, she states that she feels well. No chills, fever or change in bowel habit. Subjective Subjective I am seeing MJ today as a courtesy visit for Dr. Gaxiola. She has a superficial ulceration of her abdominal pannus; it is in the most dependent portion of her pannus. She reports wound care did not go well for her this week because she did not have any home health visits this week, reports she is currently between home health services but is supposed to start with the new one next week. She is not really able to effectively manage the dressing changes by herself. She has been using the disposable chucks under her pannus to help manage moisture. She did receive the antibiotic that Dr. Gaxiola prescribed last week and has been taking this as directed without adverse effects. Objective Data Objective Data Vital Signs: Vital Signs Temp Pulse Resp BP Pulse Ox O2 Del Method 97.1 F L 80 18 170/82 H 98 Room Air 01/23/25 13:24 01/23/25 13:24 01/23/25 13:24 01/23/25 13:24 08/07/24 00:15 01/23/25 13:24 Oxygen Delivery Method Room Air Weight: 433 lb Body Mass Index (BMI) 72.0 Lab / Micro Data Micro: Microbiology 01/16/25 10:10 Wound - Abdominal Gram Stain - Final 01/16/25 10:10 Wound - Abdominal Wound Culture - Final Staphylococcus aureus Meth. resistant Staph. aureus Corynebacterium amycolatum/xer 01/16/25 10:10 Wound - Abdominal Anaerobic Culture - Final No anaerobic bacteria isolated. Charges/Coding Visit Charges Office Visits / Consults: 71625 OV L3 New 30min Procedures Integumentary 111xxx-113xx: 33472 Silvia subq tissue 20 sq cm/< Physical Exam Const alert, oriented x3 and no apparent distress General Appearance: cooperative, comfortable and well kempt HEENT normocephalic and head/scalp atraumatic Eyes EOMs intact bilaterally General Eye: normal appearance of both eyes Neck full ROM General: normal visual inspection Resp normal respiratory effort and normal air movement Effort and Inspection: able to speak in complete sentences GI soft to palpation and non-tender Inspection: central obesity and pannus present Skin Wounds: wounds noted size Size: See clinical note, bed with slough, margins well approximated and open Neuro oriented x3, CN's II-XII intact bilaterally, moves all extremities and no focal motor deficits Psych mental status grossly normal, thought process normal, cooperative and affect normal Debridement Note Debridement Note Wound debrided: Abdominal pannus/lower abdomen Type of Debridement: Excisional debridement Anesthesia Used: 5% Lidocaine Gel Depth: Down to and including healthy tissue and in the subcutaneous layer Percentage of wound debrided: 100 Instrument Used: 5mm curette Tissue Removed: Slough and devitalized tissue Severity: Fat Layer Exposed Amount of bleeding with debridement: Mild Bleeding Controlled with: Pressure Patient tolerated procedure: Patient tolerated procedure well Post-Debridement Measurements and Additional Note: Post-Debridement Measurements/Treatment - Nurse 1 - General Ulcer Assessment Start: 01/16/25 09:30 Freq: Status: Active Protocol: [email or web address] Activity Type Activity Date Activity User E-sign Co-sign Detail Recorded Client Recorded Date Recorded By Document 01/16/25 09:30 DS [id number] 01/16/25 09:32 DS Document 01/23/25 13:24 KW [id number] 01/23/25 13:29 KW 01/16/25 01/23/25 09:30 13:24 - Today's Visit Information Type of service Follow-up Visit (Physician/COUNTERINTELLIGENCE AGENT ) Arrival Mode Wheelchair Patient Identification Verified (Name & Yes ) Height and Weight Body Mass Index (BMI) 72.0 72.0 BMI Classification Obese Obese Vital Signs Temperature (97.8 F-99.1 F) 97.8 F 97.1 F L Temperature Source Temporal Temporal Pulse Rate (60-100) 65 80 Pulse Location Monitor Respiratory Rate (12-18) 18 18 Respiratory rate source Observation Observation Oxygen Delivery Method Room Air Room Air Blood Pressure (90/60-120/80) 168/92 H 170/82 H Blood Pressure Mean (mm Hg) 117 111 Source Monitor Monitor Position Sitting Supine Blood Pressure Location Left Forearm Left Forearm History Since Last Visit- (Skip if this is Patient's initial visit) Have you changed medications since your No last visit? Any new allergies or adverse reactions No Had a fall/change in ADL's that may No increase risk of falls Signs or symptoms of abuse and/or No neglect since last visit Have you been in the hospital since your No last visit? Has dressing in place as prescribed Yes Has compression in place as prescribed N/A Has offloadiing in place as prescribed N/A Experienced any changes in pain level or No management Left Footwear Regular Shoe Right Footwear Regular Shoe Pain Scale: 0-10 Numeric Is Patient Pain Free? Yes Yes Communication Assessment Preferred language Occitan Able to Read Yes Able to Write Yes Right Hearing Abillity Normal Left Hearing Abillity Normal Visual Assistive Devices Glasses Teaching Assessment Preferences Verbal,Written, Demonstration Barriers to Learning None,Unable to Comprehend Readiness To Learn Excellent Willingness to Engage in Self Management High Activies Readiness to Engage in Self Management High Activities Anxiety Level Calm Cooperation Cooperative Perception Coherent Interest in Health Problem Asks Questions Education Importance Acknowledges Need Does Patient Smoke tobacco or other No substances Is Patient Diabetic No Functional Assessment Recent Decline in Ability to Perform Denies Any Declines Culture/Mormonism/Property Condition Assessor Cultural/Mormonism Needs that may affect No Treatment Plan Teaching: Wound Center *Welcome to the Wound Center -Person Taught Patient -Teaching Method Discussion -Response to teaching Verbalize Understanding WC - Nurse 1 - General Ulcer Measurement Start: 01/16/25 09:30 Freq: Status: Active Protocol: Activity Type Activity Date Activity User E-sign Co-sign Detail Recorded Client Recorded Date Recorded By Document 01/16/25 09:41 DS [id number] 01/16/25 09:47 DS Document 01/23/25 13:24 KW [id number] 01/23/25 13:29 KW 01/16/25 01/23/25 09:41 13:24 Wound Center Nurse 1 #8 mid abd -Current Size (cm) - Length 1.1 1 -Current Size (cm) - Width 0.6 0.7 -Current Size (cm) - Depth 0.1 0.1 -Total Square Cm 0.66 0.7 -Date of Last Picture (Recall this 01/16/25 field) -Photo Taken Yes -Tunneling No -Undermining/Tunneling No -Circular Undermining No -Exudate Amt None Present -Wound Margin Distinct, Outline Attached -Granulation Amt Medium (34-66%) Large (67-100%) -Granulation Quality [place] -Necrosis Amt Small (1-33%) -Necrotic Tissue Type Adherent Slough -Texture (Sera-wound Skin Appearance) Assessed Assessed -Moisture (Sera-wound Skin Appearance) Assessed Assessed -Color (Sera-wound Skin Appearance) Assessed Assessed -Temperature (Sera-wound Skin No Abnormality No Abnormality Appearance) (Pt Warm) (Pt Warm) -Tenderness on Palpation (Sera-wound No No Skin Appearance) -Ulcer Cleansing Soap and Water Soap and Water -Foul Odor after Cleansing No No -Anesthetic Used 5% Lidocaine 5% Lidocaine Gel Gel WC - Nurse 2 - General Ulcer CM Notes Start: 01/16/25 09:30 Freq: Status: Active Protocol: Activity Type Activity Date Activity User E-sign Co-sign Detail Recorded Client Recorded Date Recorded By Document 01/16/25 10:08 [id number] 01/16/25 10:12 Document 01/23/25 14:06 [id number] 01/23/25 14:10 01/16/25 01/23/25 10:08 14:06 Wound Center Nurse 2 #8 mid abd -Time 10:08 14:08 -Correct Patient Yes Yes -Correct Side, Site, Position Yes Yes -Correct Procedure Yes Yes -Procedure Performed Yes Yes -Type of Procedure Debridement Debridement -Clinical Debridement Subcutaneous Subcutaneous -Tissue Removed Subcutaneous Subcutaneous -Post Debridement (cm) - Length 1.2 1.3 -Post Debridement (cm) - Width 0.9 0.8 -Post Debridement (cm) - Depth 0.1 0.1 -Total Square (Post) (cm) 1.08 1.04 -Area of Debridement (cm) - Length 1.2 1.3 -Area of Debridement (cm) - Width 0.9 0.8 -Total Square (Area) (cm) 1.08 1.04 -Tunneling No No -Undermining/Tunneling No No -Circular Undermining No No -Wound/Ulcer Outcome Not Healed Not Healed -Ulcer Cleansing Rinsed/ Rinsed/ Irrigated with Irrigated with Saline Saline -Foul Odor after Cleansing No No -Bioengineered Tissue No No -Bleeding Controlled with Pressure Pressure -Treatment Response Procedure Procedure Tolerated Well Tolerated Well -Offloading No No -Debridement - Subq, 1st 20sq cm Yes Yes Pain Scale: 0-10 Numeric Is Patient Pain Free? Yes Yes - Nurse 3 - General Ulcer D/C NN Start: 01/16/25 09:30 Freq: Status: Active Protocol: Activity Type Activity Date Activity User E-sign Co-sign Detail Recorded Client Recorded Date Recorded By Document 01/16/25 10:27 RB [id number] 01/16/25 10:28 RB 01/16/25 10:27 Wound Care Center Nurse 3 #8 mid abd -Ulcer Cleansing Rinsed/ Irrigated with Saline -Primary Dressing Applied Silvercel -Primary Dressing Covered/Secured with Dry Gauze, Secured with Tape -Silvercel 1 Treatment Response Procedure Tolerated Well Pain Scale: 0-10 Numeric Is Patient Pain Free? Yes WC - Visit Discharge Discharge Condition Stable Ambulatory Status Wheelchair Transportation Private Auto Accompanied by daughter Medication Reconcilliation completed & No provided to patient/care provider Clinical Summary of Care Provided Yes Assessment/Plan Assessment/Plan (1) Skin ulcer of abdominal wall with fat layer exposed: CODE(S): L98.492 - Non-pressure chronic ulcer of skin of other sites with fat layer exposed (2) Morbid obesity with BMI of 70 and over, adult: CODE(S): E66.01 - Morbid (severe) obesity due to excess calories; Z68.45 - Body mass index [BMI] 70 or greater, adult (3) Intertrigo: CODE(S): L30.4 - Erythema intertrigo (4) Abdominal pannus: CODE(S): E65 - Localized adiposity (5) Decubitus skin ulcer: CODE(S): L89.90 - Pressure ulcer of unspecified site, unspecified stage PLAN: Plan Debridement done as documented above, procedure was well-tolerated. She has been taking antibiotics as prescribed, no signs of infection by exam today. Will continue with current wound care: (1) Wash the area with antibacterial soap and water, pat dry (2) Apply silver cell (3) Cover with foam border dressing (4) Change daily, more often as needed to keep clean and dry. Continue to encourage strict adherence to pannus moisture management measures, continue use of disposable chucks as these seem to be working well to wick moisture. Follow-up in a week or sooner if needed.
== END 2025-02-03 23:59 | disposition home or self-care (01) ==
LOC: WC 13:30
PROVIDERS: PCP Registered Nurse; Referring Provider Physician Assistant; Visit Provider Internal Medicine
DX: L98.492 Non-pressure chronic ulcer of skin of other sites with fat layer exposed (principal); E66.01 Morbid (severe) obesity due to excess calories; Z68.45 Body mass index [BMI] 70 or greater, adult; E78.00 Pure hypercholesterolemia, unspecified; E65 Localized adiposity; I10 Essential (primary) hypertension; L30.4 Erythema intertrigo; Z79.84 Long term (current) use of oral hypoglycemic drugs; Z79.890 Hormone replacement therapy; Z79.899 Other long term (current) drug therapy
CPT/HCPCS: 11042; 87070; 87075; 87077; 87186; 87205; 99213; G0463

== ENCOUNTER 2025-02-20 10:30 | Outpatient (RCR) | payer MEDICAID, SELFPAY ==
[2025-02-06 10:56] VITALS: BP 153/93; PULSE 75; RESP 18; TEMP 36.1
--- NOTE | 2025-02-06 13:45 | PCM.WC.PN ---
History of Present Illness Date of Service: 02/06/25 Chief Complaint: Abdominal wall Ulcer History of Wound: Ms. Lazo is a 49-year-old who presents to the wound center due to abdominal wall ulcer. Has been seen here in the past and last seen here in July following healing. She states that she noted reopening of the area over a week ago. Since noting, had some silver cell at home which she started reapplying. Difficulty with visualizing the area. Had home health however, she states that her home health does not come in anymore. No known history of diabetes. She states that she is unable to eat healthy due to cost. History of morbid obesity, current BMI of 72.1. Not ambulatory. Otherwise, she states that she feels well. No chills, fever or change in bowel habit. Progress of Wound: No acute concerns at this time. Some improvement noted. Objective Data Objective Data Vital Signs: Vital Signs Temp Pulse Resp BP 97 F L 75 18 153/93 H 02/06/25 10:56 02/06/25 10:56 02/06/25 10:56 02/06/25 10:56 Charges/Coding Procedures Integumentary 111xxx-113xx: 16448 Silvia subq tissue 20 sq cm/< Physical Exam Const alert, oriented x3 and no apparent distress General Appearance: cooperative, comfortable and well kempt HEENT normocephalic and head/scalp atraumatic Eyes EOMs intact bilaterally General Eye: normal appearance of both eyes Neck full ROM General: normal visual inspection Resp normal respiratory effort Effort and Inspection: able to speak in complete sentences GI Inspection: central obesity and pannus present Skin Wounds: wounds noted size Size: See clinical note, bed granulating well, margins well approximated and open Neuro oriented x3, CN's II-XII intact bilaterally, moves all extremities and no focal motor deficits Psych mental status grossly normal, thought process normal, cooperative and affect normal Debridement Note Debridement Note Wound debrided: Abdominal pannus Type of Debridement: Excisional debridement Anesthesia Used: 5% Lidocaine Gel Depth: Down to and including healthy tissue and in the subcutaneous layer Percentage of wound debrided: 100 Instrument Used: 3mm curette Tissue Removed: Devitalized tissue Severity: Fat Layer Exposed Amount of bleeding with debridement: Mild Bleeding Controlled with: Pressure Patient tolerated procedure: Patient tolerated procedure well Post-Debridement Measurements and Additional Note: Post-Debridement Measurements/Treatment - Nurse 1 - General Ulcer Assessment Start: 02/06/25 10:50 Freq: Status: Active Protocol: BALDEMAR Activity Type Activity Date Activity User E-sign Co-sign Detail Recorded Client Recorded Date Recorded By Document 02/06/25 10:56 TAINA [id number] 02/06/25 10:58 TAINA 02/06/25 10:56 - Today's Visit Information Type of service Follow-up Visit (Physician/HOSPICE SOCIAL WORKER ) Arrival Mode Wheelchair Transfer Assistance Manual Patient Identification Verified (Name & Yes ) Patient Requires Transmission-Based No Precautions Vital Signs Temperature (97.8 F-99.1 F) 97 F L Temperature Source Temporal Pulse Rate (60-100) 75 Pulse Location Monitor Respiratory Rate (12-18) 18 Respiratory rate source Observation Blood Pressure (90/60-120/80) 153/93 H Blood Pressure Mean (mm Hg) 113 Source Monitor Position Semi-Fowlers Blood Pressure Location Left Arm History Since Last Visit- (Skip if this is Patient's initial visit) Have you changed medications since your No last visit? Any new allergies or adverse reactions No Had a fall/change in ADL's that may No increase risk of falls Signs or symptoms of abuse and/or No neglect since last visit Have you been in the hospital since your No last visit? Has dressing in place as prescribed Yes Has compression in place as prescribed N/A Has offloadiing in place as prescribed N/A Experienced any changes in pain level or No management Pain Scale: 0-10 Numeric Is Patient Pain Free? Yes - Nurse 1 - General Ulcer Measurement Start: 02/06/25 10:50 Freq: Status: Active Protocol: Activity Type Activity Date Activity User E-sign Co-sign Detail Recorded Client Recorded Date Recorded By Document 02/06/25 10:56 TAINA [id number] 02/06/25 10:58 RB 02/06/25 10:56 Wound Center Nurse 1 #8 mid abd -Combined with other wound No -Current Size (cm) - Length 0.4 -Current Size (cm) - Width 0.4 -Current Size (cm) - Depth 0.1 -Total Square Cm 0.16 -Photo Taken Yes -Tunneling No -Undermining/Tunneling No -Circular Undermining No -Exudate Amt Medium -Exudate Type Serosanguineous -Wound Margin Fibrotic Scar, Thickened Scar -Granulation Amt Medium (34-66%) -Granulation Quality [place] -Slough/Fibrin Yes -Necrosis Amt Small (1-33%) -Necrotic Tissue Type Adherent Slough -Structure Exposed N/A -Texture (Sera-wound Skin Appearance) Scarring -Moisture (Sera-wound Skin Appearance) Assessed -Color (Sera-wound Skin Appearance) Assessed -Temperature (Sera-wound Skin No Abnormality Appearance) (Pt Warm) -Tenderness on Palpation (Sera-wound No Skin Appearance) -Ulcer Cleansing Wound Cleanser -Foul Odor after Cleansing No -Anesthetic Used 5% Lidocaine Gel WC - Nurse 2 - General Ulcer CM Notes Start: 02/06/25 10:50 Freq: Status: Active Protocol: Activity Type Activity Date Activity User E-sign Co-sign Detail Recorded Client Recorded Date Recorded By Document 02/06/25 11:08 [id number] 02/06/25 11:09 02/06/25 11:08 Wound Center Nurse 2 -Time 11:08 -Correct Patient Yes -Correct Side, Site, Position Yes -Correct Procedure Yes -Procedure Performed Yes -Type of Procedure Debridement -Clinical Debridement Subcutaneous -Tissue Removed Subcutaneous -Post Debridement (cm) - Length 0.6 -Post Debridement (cm) - Width 0.6 -Post Debridement (cm) - Depth 0.1 -Total Square (Post) (cm) 0.36 -Area of Debridement (cm) - Length 0.6 -Area of Debridement (cm) - Width 0.6 -Total Square (Area) (cm) 0.36 -Tunneling No -Undermining/Tunneling No -Circular Undermining No -Wound/Ulcer Outcome Not Healed -Ulcer Cleansing Rinsed/ Irrigated with Saline -Foul Odor after Cleansing No -Bioengineered Tissue No -Bleeding Controlled with Pressure -Treatment Response Procedure Tolerated Well -Offloading No -Debridement - Subq, 1st 20sq cm Yes Pain Scale: 0-10 Numeric Is Patient Pain Free? Yes - Nurse 3 - General Ulcer D/C NN Start: 02/06/25 10:50 Freq: Status: Active Protocol: Activity Type Activity Date Activity User E-sign Co-sign Detail Recorded Client Recorded Date Recorded By Document 02/06/25 11:14 [place] [id number] 02/06/25 11:24 [place] 02/06/25 11:14 Wound Care Center Nurse 3 #8 mid abd -Primary Dressing Applied Silicone Border Foam 4x4 -Primary Dressing Covered/Secured with Dry Gauze -Silicone Border Foam 4x4 1 -Wound Comment(s) pt brought own silvercel Pain Scale: 0-10 Numeric Is Patient Pain Free? Yes Assessment/Plan Assessment/Plan (1) Skin ulcer of abdominal wall with fat layer exposed: CODE(S): L98.492 - Non-pressure chronic ulcer of skin of other sites with fat layer exposed (2) Morbid obesity with BMI of 70 and over, adult: CODE(S): E66.01 - Morbid (severe) obesity due to excess calories; Z68.45 - Body mass index [BMI] 70 or greater, adult (3) Intertrigo: CODE(S): L30.4 - Erythema intertrigo (4) Abdominal pannus: CODE(S): E65 - Localized adiposity (5) Decubitus skin ulcer: CODE(S): L89.90 - Pressure ulcer of unspecified site, unspecified stage PLAN: Plan Debridement done as documented above, procedure was well-tolerated. Some improvement noted today. Clean daily with soap and water, continue silver cell, cover with gauze/foam dressing. Continue moisture prevention and other chronic wound care measures as previously discussed. Optimize protein intake. Her questions were answered and she was advised to let us know if she had any further questions or concerns. Follow-up in a week or sooner if needed. This note was generated with [employer] dictation software. It may contain incorrect words, spelling, and punctuation that were not noted in checking the note before signing.
--- NOTE | 2025-02-10 08:52 | WC ---
PHOTO 02/06/25 MID ABD
[2025-02-13 10:16] VITALS: BP 183/79; PULSE 69; RESP 18; TEMP 35.9
--- NOTE | 2025-02-13 11:19 | PCM.WC.PN ---
History of Present Illness Date of Service: 02/13/25 Chief Complaint: Abdominal wall Ulcer History of Wound: Ms. Lazo is a 49-year-old who presents to the wound center due to abdominal wall ulcer. Has been seen here in the past and last seen here in July following healing. She states that she noted reopening of the area over a week ago. Since noting, had some silver cell at home which she started reapplying. Difficulty with visualizing the area. Had home health however, she states that her home health does not come in anymore. No known history of diabetes. She states that she is unable to eat healthy due to cost. History of morbid obesity, current BMI of 72.1. Not ambulatory. Otherwise, she states that she feels well. No chills, fever or change in bowel habit. Progress of Wound: No acute concerns at this time. Minimal area left. Objective Data Objective Data Vital Signs: Vital Signs Temp Pulse Resp BP O2 Del Method 96.6 F L 69 18 183/79 H Room Air 02/13/25 10:16 02/13/25 10:16 02/13/25 10:16 02/13/25 10:16 02/13/25 10:16 Oxygen Delivery Method Room Air Charges/Coding Procedures Integumentary 111xxx-113xx: [id number] Silvia subq tissue 20 sq cm/< (Selective debridement done today. See clinical note.) Physical Exam Const alert, oriented x3 and no apparent distress General Appearance: cooperative, comfortable and well kempt HEENT normocephalic and head/scalp atraumatic Eyes EOMs intact bilaterally General Eye: normal appearance of both eyes Neck full ROM General: normal visual inspection Resp normal respiratory effort Effort and Inspection: able to speak in complete sentences GI Inspection: central obesity and pannus present Skin Wounds: wounds noted size Size: See clinical note, bed granulating well, margins well approximated and open Neuro oriented x3, CN's II-XII intact bilaterally, moves all extremities and no focal motor deficits Psych mental status grossly normal, thought process normal, cooperative and affect normal Debridement Note Debridement Note Wound debrided: Abdomen Type of Debridement: Selective debridement Depth: Down to and including healthy tissue Percentage of wound debrided: 100 Instrument Used: 3mm curette Tissue Removed: Devitalized tissue Severity: Limited To Skin Breakdown Amount of bleeding with debridement: Mild Bleeding Controlled with: Pressure Patient tolerated procedure: Patient tolerated procedure well Post-Debridement Measurements and Additional Note: Post-Debridement Measurements/Treatment WC - Nurse 1 - General Ulcer Assessment Start: 02/06/25 10:50 Freq: Status: Active Protocol: BALDEMAR Activity Type Activity Date Activity User E-sign Co-sign Detail Recorded Client Recorded Date Recorded By Document 02/06/25 10:56 RB [id number] 02/06/25 10:58 RB Document 02/13/25 10:16 DS [id number] 02/13/25 10:23 DS 02/06/25 02/13/25 10:56 10:16 WC - Today's Visit Information Type of service Follow-up Visit Follow-up Visit (Physician/HIGH DENSITY PRESS LABORER (Physician/HIGH DENSITY PRESS LABORER ) ) Arrival Mode Wheelchair Wheelchair Transfer Assistance Manual Patient Identification Verified (Name & Yes Yes ) Patient Requires Transmission-Based No No Precautions Safety Precautions Fall Prevention Vital Signs Temperature (97.8 F-99.1 F) 97 F L 96.6 F L Temperature Source Temporal Temporal Pulse Rate (60-100) 75 69 Pulse Location Monitor Monitor Respiratory Rate (12-18) 18 18 Respiratory rate source Observation Observation Oxygen Delivery Method Room Air Blood Pressure (90/60-120/80) 153/93 H 183/79 H Blood Pressure Mean (mm Hg) 113 113 Source Monitor Monitor Position Semi-Fowlers Semi-Fowlers Blood Pressure Location Left Arm Right Arm History Since Last Visit- (Skip if this is Patient's initial visit) Have you changed medications since your No No last visit? Any new allergies or adverse reactions No No Had a fall/change in ADL's that may No No increase risk of falls Signs or symptoms of abuse and/or No No neglect since last visit Have you been in the hospital since your No No last visit? Has dressing in place as prescribed Yes Yes Has compression in place as prescribed N/A N/A Has offloadiing in place as prescribed N/A N/A Experienced any changes in pain level or No No management Left Footwear Regular Shoe Right Footwear Regular Shoe Pain Scale: 0-10 Numeric Is Patient Pain Free? Yes Yes MALENA Verma Nurse 1 - General Ulcer Measurement Start: 02/06/25 10:50 Freq: Status: Active Protocol: Activity Type Activity Date Activity User E-sign Co-sign Detail Recorded Client Recorded Date Recorded By Document 02/06/25 10:56 RB [id number] 02/06/25 10:58 RB Document 02/13/25 10:16 DS [id number] 02/13/25 10:23 DS 02/06/25 02/13/25 10:56 10:16 Wound Center Nurse 1 #8 mid abd -Combined with other wound No -Current Size (cm) - Length 0.4 0.1 -Current Size (cm) - Width 0.4 0.1 -Current Size (cm) - Depth 0.1 0 -Total Square Cm 0.16 0.01 -Date of Last Picture (Recall this 02/13/25 field) -Photo Taken Yes Yes -Tunneling No -Undermining/Tunneling No -Circular Undermining No -Exudate Amt Medium -Exudate Type Serosanguineous -Wound Margin Fibrotic Scar, Thickened Scar -Granulation Amt Medium (34-66%) -Granulation Quality [place] -Slough/Fibrin Yes -Necrosis Amt Small (1-33%) -Necrotic Tissue Type Adherent Slough -Structure Exposed N/A -Texture (Sera-wound Skin Appearance) Scarring -Moisture (Sera-wound Skin Appearance) Assessed -Color (Sera-wound Skin Appearance) Assessed -Temperature (Sera-wound Skin No Abnormality No Abnormality Appearance) (Pt Warm) (Pt Warm) -Tenderness on Palpation (Sera-wound No No Skin Appearance) -Ulcer Cleansing Wound Cleanser Soap and Water -Foul Odor after Cleansing No -Anesthetic Used 5% Lidocaine Gel WC - Nurse 2 - General Ulcer CM Notes Start: 02/06/25 10:50 Freq: Status: Active Protocol: Activity Type Activity Date Activity User E-sign Co-sign Detail Recorded Client Recorded Date Recorded By Document 02/06/25 11:08 [id number] 02/06/25 11:09 Document 02/13/25 10:43 [id number] 02/13/25 10:44 02/06/25 02/13/25 11:08 10:43 Wound Center Nurse 2 #8 mid abd -Time 11:08 10:43 -Correct Patient Yes Yes -Correct Side, Site, Position Yes Yes -Correct Procedure Yes Yes -Procedure Performed Yes Yes -Type of Procedure Debridement Debridement -Clinical Debridement Subcutaneous Epidermis / Dermis -Tissue Removed Subcutaneous Epidermis -Post Debridement (cm) - Length 0.6 0.2 -Post Debridement (cm) - Width 0.6 0.2 -Post Debridement (cm) - Depth 0.1 0.1 -Total Square (Post) (cm) 0.36 0.04 -Area of Debridement (cm) - Length 0.6 0.2 -Area of Debridement (cm) - Width 0.6 0.2 -Total Square (Area) (cm) 0.36 0.04 -Tunneling No No -Undermining/Tunneling No No -Circular Undermining No No -Wound/Ulcer Outcome Not Healed Not Healed -Ulcer Cleansing Rinsed/ Rinsed/ Irrigated with Irrigated with Saline Saline -Foul Odor after Cleansing No No -Bioengineered Tissue No No -Bleeding Controlled with Pressure Pressure -Treatment Response Procedure Procedure Tolerated Well Tolerated Well -Offloading No No -Debridement - Open, 1st 20sq cm Yes -Debridement - Subq, 1st 20sq cm Yes Pain Scale: 0-10 Numeric Is Patient Pain Free? Yes Yes - Nurse 3 - General Ulcer D/C NN Start: 02/06/25 10:50 Freq: Status: Active Protocol: Activity Type Activity Date Activity User E-sign Co-sign Detail Recorded Client Recorded Date Recorded By Document 02/06/25 11:14 MT [id number] 02/06/25 11:24 MT Document 02/13/25 10:56 DS [id number] 02/13/25 11:02 DS 02/06/25 02/13/25 11:14 10:56 Wound Care Center Nurse 3 #8 mid abd -Primary Dressing Applied Silicone Border Silvercel Foam 4x4 -Other Dressing pt own silvercel -Primary Dressing Covered/Secured with Dry Gauze Dry Gauze, Secured with Tape -Silicone Border Foam 4x4 1 -Silvercel 0 -Wound Comment(s) pt brought own silvercel Pain Scale: 0-10 Numeric Is Patient Pain Free? Yes Yes WC - Visit Discharge Discharge Condition Stable Ambulatory Status Wheelchair Transportation Private Auto Assessment/Plan Assessment/Plan (1) Skin ulcer of abdominal wall with fat layer exposed: CODE(S): L98.492 - Non-pressure chronic ulcer of skin of other sites with fat layer exposed (2) Morbid obesity with BMI of 70 and over, adult: CODE(S): E66.01 - Morbid (severe) obesity due to excess calories; Z68.45 - Body mass index [BMI] 70 or greater, adult (3) Intertrigo: CODE(S): L30.4 - Erythema intertrigo (4) Abdominal pannus: CODE(S): E65 - Localized adiposity (5) Decubitus skin ulcer: CODE(S): L89.90 - Pressure ulcer of unspecified site, unspecified stage PLAN: Plan Debridement done as documented above, procedure was well-tolerated. Continues to show good improvement, minimal area left. Clean daily with soap and water, continue silver cell, cover with gauze/foam dressing. Continue moisture prevention and other chronic wound care measures as previously discussed. Optimize protein intake. Her questions were answered and she was advised to let us know if she had any further questions or concerns. Follow-up in a week or sooner if needed. This note was generated with [employer] dictation software. It may contain incorrect words, spelling, and punctuation that were not noted in checking the note before signing.
--- NOTE | 2025-02-14 10:07 | WC ---
PHOTO 02/13/25 ABD
[2025-02-20 10:05] VITALS: BP 183/79; PULSE 73; RESP 18; TEMP 35.4
--- NOTE | 2025-02-20 11:03 | PCM.WC.PN ---
History of Present Illness Date of Service: 02/20/25 Chief Complaint: Abdominal wall Ulcer History of Wound: Ms. Lazo is a 49-year-old who presents to the wound center due to abdominal wall ulcer. Has been seen here in the past and last seen here in July following healing. She states that she noted reopening of the area over a week ago. Since noting, had some silver cell at home which she started reapplying. Difficulty with visualizing the area. Had home health however, she states that her home health does not come in anymore. No known history of diabetes. She states that she is unable to eat healthy due to cost. History of morbid obesity, current BMI of 72.1. Not ambulatory. Otherwise, she states that she feels well. No chills, fever or change in bowel habit. Progress of Wound: No acute concerns at this time. Healed. Objective Data Objective Data Vital Signs: Vital Signs Temp Pulse Resp BP O2 Del Method 95.7 F L 73 18 183/79 H Room Air 02/20/25 10:02/20/25 10:02/20/25 10:02/20/25 10:02/13/25 10:16 Oxygen Delivery Method Room Air Charges/Coding Visit Charges Office Visits / Consults: 50989 OV L3 Est 20min Physical Exam Const alert, oriented x3 and no apparent distress General Appearance: cooperative, comfortable and well kempt HEENT normocephalic and head/scalp atraumatic Eyes EOMs intact bilaterally General Eye: normal appearance of both eyes Neck full ROM General: normal visual inspection Resp normal respiratory effort Effort and Inspection: able to speak in complete sentences GI Inspection: central obesity and pannus present Neuro oriented x3, CN's II-XII intact bilaterally, moves all extremities and no focal motor deficits Psych mental status grossly normal, thought process normal, cooperative and affect normal Debridement Note Debridement Note Post-Debridement Measurements and Additional Note: Post-Debridement Measurements/Treatment WC - Nurse 1 - General Ulcer Assessment Start: 02/06/25 10:50 Freq: Status: Active Protocol: [email or web address].[email or web address] Activity Type Activity Date Activity User E-sign Co-sign Detail Recorded Client Recorded Date Recorded By Document 02/06/25 10:56 RB [id number] 02/06/25 10:58 RB Document 02/13/25 10:16 DS [id number] 02/13/25 10:23 DS Document 02/20/25 10:05 CARLA [id number] 02/20/25 10:10 CARLA 02/06/25 02/13/25 02/20/25 10:56 10:16 10:05 MALENA - Today's Visit Information Type of service Follow-up Visit Follow-up Visit Follow-up Visit (Physician/INFORMATION CLERK BROKERAGE (Physician/INFORMATION CLERK BROKERAGE (Physician/INFORMATION CLERK BROKERAGE ) ) ) Arrival Mode Wheelchair Wheelchair Ambulatory, Wheelchair Transfer Assistance Manual Manual Patient Identification Verified (Name & Yes Yes Yes ) Patient Requires Transmission-Based No No No Precautions Safety Precautions Fall Prevention Vital Signs Temperature (97.8 F-99.1 F) 97 F L 96.6 F L 95.7 F L Temperature Source Temporal Temporal Temporal Pulse Rate (60-100) 75 69 73 Pulse Location Monitor Monitor Monitor Respiratory Rate (12-18) 18 18 18 Respiratory rate source Observation Observation Observation Oxygen Delivery Method Room Air Blood Pressure (90/60-120/80) 153/93 H 183/79 H 183/79 H Blood Pressure Mean (mm Hg) 113 113 113 Source Monitor Monitor Monitor Position Semi-Fowlers Semi-Fowlers Semi-Fowlers Blood Pressure Location Left Arm Right Arm Right Forearm History Since Last Visit- (Skip if this is Patient's initial visit) Have you changed medications since your No No Yes last visit? Any new allergies or adverse reactions No No No Had a fall/change in ADL's that may No No No increase risk of falls Signs or symptoms of abuse and/or No No No neglect since last visit Have you been in the hospital since your No No No last visit? Has dressing in place as prescribed Yes Yes Yes Has compression in place as prescribed N/A N/A N/A Has offloadiing in place as prescribed N/A N/A N/A Experienced any changes in pain level or No No No management Left Footwear Regular Shoe Regular Shoe Right Footwear Regular Shoe Regular Shoe Pain Scale: 0-10 Numeric Is Patient Pain Free? Yes Yes Yes MALENA - Nurse 1 - General Ulcer Measurement Start: 02/06/25 10:50 Freq: Status: Active Protocol: Activity Type Activity Date Activity User E-sign Co-sign Detail Recorded Client Recorded Date Recorded By Document 02/06/25 10:56 RB [id number] 02/06/25 10:58 RB Document 02/13/25 10:16 DS [id number] 02/13/25 10:23 DS Document 02/20/25 10:05 JF [id number] 02/20/25 10:10 JF 02/06/25 02/13/25 02/20/25 10:56 10:16 10:05 Wound Center Nurse 1 #8 mid abd -Combined with other wound No No -Current Size (cm) - Length 0.4 0.1 0.1 -Current Size (cm) - Width 0.4 0.1 0.1 -Current Size (cm) - Depth 0.1 0 0.1 -Total Square Cm 0.16 0.01 0.01 -Date of Last Picture (Recall this 02/13/25 field) -Photo Taken Yes Yes Yes -Epithelialization Large 67-100% -Tunneling No No -Undermining/Tunneling No No -Circular Undermining No No -Exudate Amt Medium None Present -Exudate Type Serosanguineous -Wound Margin Fibrotic Scar, Thickened Scar -Granulation Amt Medium (34-66%) None Present (0 %) -Granulation Quality [place] -Slough/Fibrin Yes No -Necrosis Amt Small (1-33%) -Necrotic Tissue Type Adherent Slough -Structure Exposed N/A N/A -Texture (Sera-wound Skin Appearance) Scarring Assessed, Scarring -Moisture (Sera-wound Skin Appearance) Assessed No Abnormality -Color (Sera-wound Skin Appearance) Assessed No Abnormality -Temperature (Sera-wound Skin No Abnormality No Abnormality No Abnormality Appearance) (Pt Warm) (Pt Warm) (Pt Warm) -Tenderness on Palpation (Sera-wound No No No Skin Appearance) -Ulcer Cleansing Wound Cleanser Soap and Water Soap and Water -Foul Odor after Cleansing No -Anesthetic Used 5% Lidocaine Gel -Wound Comment(s) no lidocaine applied. Lower Limb Edema Present NA WC - Nurse 2 - General Ulcer CM Notes Start: 02/06/25 10:50 Freq: Status: Active Protocol: Activity Type Activity Date Activity User E-sign Co-sign Detail Recorded Client Recorded Date Recorded By Document 02/06/25 11:08 [id number] 02/06/25 11:09 Document 02/13/25 10:43 GM [id number] 02/13/25 10:44 GM Document 02/20/25 10:37 DS [id number] 02/20/25 10:38 DS 02/06/25 02/13/25 02/20/25 11:08 10:43 10:37 Wound Center Nurse 2 #8 mid abd -Time 11:08 10:43 10:38 -Correct Patient Yes Yes Yes -Correct Side, Site, Position Yes Yes Yes -Correct Procedure Yes Yes -Procedure Performed Yes Yes No -Type of Procedure Debridement Debridement -Clinical Debridement Subcutaneous Epidermis / Dermis -Tissue Removed Subcutaneous Epidermis -Post Debridement (cm) - Length 0.6 0.2 -Post Debridement (cm) - Width 0.6 0.2 -Post Debridement (cm) - Depth 0.1 0.1 -Total Square (Post) (cm) 0.36 0.04 -Area of Debridement (cm) - Length 0.6 0.2 -Area of Debridement (cm) - Width 0.6 0.2 -Total Square (Area) (cm) 0.36 0.04 -Tunneling No No -Undermining/Tunneling No No -Circular Undermining No No -Wound/Ulcer Outcome Not Healed Not Healed Healed- Epithelialized -Ulcer Cleansing Rinsed/ Rinsed/ Irrigated with Irrigated with Saline Saline -Foul Odor after Cleansing No No -Bioengineered Tissue No No -Bleeding Controlled with Pressure Pressure -Treatment Response Procedure Procedure Tolerated Well Tolerated Well -Offloading No No -Debridement - Open, 1st 20sq cm Yes -Debridement - Subq, 1st 20sq cm Yes Pain Scale: 0-10 Numeric Is Patient Pain Free? Yes Yes Yes WC - Nurse 3 - General Ulcer D/C NN Start: 02/06/25 10:50 Freq: Status: Active Protocol: Activity Type Activity Date Activity User E-sign Co-sign Detail Recorded Client Recorded Date Recorded By Document 02/06/25 11:14 MT [id number] 02/06/25 11:24 MT Document 02/13/25 10:56 DS [id number] 02/13/25 11:02 DS Document 02/20/25 10:42 DS [id number] 02/20/25 10:47 DS 02/06/25 02/13/25 02/20/25 11:14 10:56 10:42 Wound Care Center Nurse 3 #8 mid abd -Ulcer Cleansing Not Cleansed -Primary Dressing Applied Silicone Border Silvercel Silicone Border Foam 4x4 Foam 4x4, Silvercel -Other Dressing pt own silvercel -Primary Dressing Covered/Secured with Dry Gauze Dry Gauze, Secured with Tape -Silicone Border Foam 4x4 1 1 -Silvercel 0 0 -Wound Comment(s) pt brought own silvercel Pain Scale: 0-10 Numeric Is Patient Pain Free? Yes Yes Yes WC - Visit Discharge Discharge Condition Stable Stable Ambulatory Status Wheelchair Wheelchair Transportation Private Auto Private Auto Assessment/Plan Assessment/Plan (1) Skin ulcer of abdominal wall with fat layer exposed: CODE(S): L98.492 - Non-pressure chronic ulcer of skin of other sites with fat layer exposed (2) Morbid obesity with BMI of 70 and over, adult: CODE(S): E66.01 - Morbid (severe) obesity due to excess calories; Z68.45 - Body mass index [BMI] 70 or greater, adult (3) Intertrigo: CODE(S): L30.4 - Erythema intertrigo (4) Abdominal pannus: CODE(S): E65 - Localized adiposity (5) Decubitus skin ulcer: CODE(S): L89.90 - Pressure ulcer of unspecified site, unspecified stage PLAN: Plan No debridement completed today, healed/epithelialized. To protect area, continue slightly moistened silver cell and gauze for 2 weeks and then stop. Continue moisture control as previously discussed. She was advised to let us know if she has any further questions or concerns. Discharge from the wound center. This note was generated with [employer] dictation software. It may contain incorrect words, spelling, and punctuation that were not noted in checking the note before signing.
--- NOTE | 2025-02-24 09:32 | WC ---
PHOTO 02/20/25 VERO [email or web address]
== END 2025-02-20 14:40 | disposition home or self-care (01) ==
LOC: WC 10:30
PROVIDERS: PCP Registered Nurse; Referring Provider Physician Assistant; Visit Provider Internal Medicine
DX: L98.492 Non-pressure chronic ulcer of skin of other sites with fat layer exposed (principal); E66.01 Morbid (severe) obesity due to excess calories; Z68.45 Body mass index [BMI] 70 or greater, adult; L30.4 Erythema intertrigo; E65 Localized adiposity
CPT/HCPCS: 11042; 97597